=== PATIENT | female | born 1955 | race Caucasian/White ===

== ENCOUNTER 2020-12-12 13:11 | Outpatient (CLI) | payer MEDICARE, BC, SELFPAY ==
--- NOTE | 2020-12-12 13:15 | ECG_ITS ---
Measurements Intervals Dagmar Rate: 71 P: 50 AK: 175 QRS: -2 QRSD: 110 T: 32 QT: 394 QTc: 431 Interpretive Statements SINUS RHYTHM LOW QRS VOLTAGE IN PRECORDIAL LEADS CONSIDER INFERIOR INFARCT, AGE INDETERMINATE BASELINE ARTIFACT- I, III, AVR, AVL,A VF, V5-V6 ABNORMAL ECG Electronically Signed On 12-12-2020 13:40:29 CDT by Mauro Cardona D.O.
[2020-12-12 13:59] LABS: Anion Gap 10 mmol/L (8-16); Blood Urea Nitrogen 15 mg/dL (7-17); Calcium 9.9 mg/dL (8.4-10.2); Carbon Dioxide 23 mmol/L (22-30); Chloride 107 mmol/L (98-107); Estimated Glomerular Filt Rate 50; Glucose 132 mg/dL (65-110); Potassium 3.7 mmol/L (3.4-5.0); Sodium 140 mmol/L (137-145)
== END 2020-12-12 13:12 | disposition home or self-care (01) ==
PROVIDERS: Anesthesiology; PCP Internal Medicine; Visit Provider Orthopaedic Surgery
DX: Z79.899 Other long term (current) drug therapy (principal); E78.5 Hyperlipidemia, unspecified; I10 Essential (primary) hypertension; Z01.812 Encounter for preprocedural laboratory examination; R94.31 Abnormal electrocardiogram [ECG] [EKG]
CPT/HCPCS: 36415; 80048; 93005

== ENCOUNTER 2020-12-18 00:36 | Day surgery (SDC) | payer MEDICARE, BC, SELFPAY ==
[2020-12-10 10:13] VITALS: BMI 33.4
--- NOTE | 2020-12-16 11:11 | PM.IMHP ---
H&P: HPI History of Present Illness Date/Time: 12/16/20 11:11 The patient is a 65-year-old female who sees Dr. Daley regarding her right shoulder. Patient has a chronic ongoing history of pain localized to the shoulder this radiates into her upper arm somewhat. She has aching pain worse with activities and relieved by rest. She can not raise her arm completely overhead or reach behind her back due to significant pain. Patient reports weakness cannot do anything heavy repetitive with the shoulder. It does keep her awake at night and limits her daily activities significantly. Despite cortisone therapy and anti-inflammatories her symptoms continue. The patient underwent an MRI scan of the right shoulder, this shows subchondral cystic formation is and reactive changes of the proximal humerus at the rotator cuff attachment. There is also rotator cuff tendinitis and full-thickness tear of the supraspinatus tendon fairly substantial in nature. The subscapularis tendon demonstrates diffuse tendonitis the infraspinatus tendon is intact. There is moderate to severe AC joint hypertrophy with moderate subacromial outlet narrowing the labral complex demonstrates evidence of a tear the posterior labral soft tissues. Biceps tendon appears to be otherwise well preserved. At this point the patient has failed conservative measures and has discussed further treatment options in detail with Dr. Daley she was aware the above findings he would like to proceed with surgical intervention. The patient's MRI scan was done May of 2020 she has discussed the fact that the tear may have propagated and could over time have become large enough that it has possibly be, retracted enlarged and irrepairable. Chief Complaint: Right shoulder pain due to impingement AC joint arthrosis and rotator cuff tearing right shoulder. Review of Systems Review of Systems: All systems reviewed & are unremarkable except as noted in HPI and below PMFSH Family History Family History Father Diabetes mellitus Hypertension Family history of cardiovascular disease Mother Diabetes mellitus Hypertension Family history of cardiovascular disease Sibling Diabetes mellitus Hypertension Family history of cardiovascular disease Family history of malignant neoplasm of ovary Grandparent Diabetes mellitus Hypertension Social History Social History Smoking packs per day: 2.5 Smoking cigarettes per day: 50.0 Years smoked: 21 Smoking pack-years: 52.50 Smoking status: Former smoker Tobacco type: cigarettes Smoking end date: 12/10/94 Alcohol intake: current Alcohol use details: once in a while Substance use: current Substance use type: marijuana Other substance usage details: twice a week for pain in shoulder. Spiritual care concerns: No Meds Home Medications and Allergies Home Medications Medication Instructions Recorded Confirmed Type aspirin 81 mg tablet,delayed 81 mg PO DAILY 09/04/19 12/10/20 History release losartan 100 mg tablet 100 mg PO DAILY 09/04/19 12/10/20 History meloxicam 15 mg tablet 15 mg PO DAILY 09/04/19 12/10/20 History sertraline 50 mg tablet 50 mg PO DAILY 09/04/19 12/10/20 History amitriptyline 50 mg tablet 50 mg PO QHS 11/04/20 12/10/20 History ascorbate calcium (vitamin C) 500 500 mg PO DAILY 11/04/20 12/10/20 History mg tablet biotin 10,000 mcg capsule 10,000 mcg PO DAILY cap 11/04/20 12/10/20 History cholecalciferol (vitamin D3) 250 150 mcg PO DAILY tablet 11/04/20 12/10/20 History mcg (10,000 unit) tablet hydrochlorothiazide 25 mg tablet 25 mg PO DAILY 11/04/20 12/10/20 History turmeric 500 mg-black pepper 1 cap PO DAILY cap 11/04/20 12/10/20 History extract 3 mg capsule zolmitriptan 5 mg tablet See Rx Instructions .ROUTE 11/20/20 12/10/20 Rx .COMPLEX #36 tablet topiramate 100 mg tablet See R
[2020-12-18] VITALS (8 sets, daily range): BP systolic 116–133; BP diastolic 69–98; PULSE 74–89; RESP 14–20; TEMP 36.2–36.9; O2SAT 92–100
[2020-12-18] MEDS: ACETAMINOPHEN 500 MG TABLET 1000 MG PO (06:56)
--- NOTE | 2020-12-18 07:03 | WPDANESEPPF ---
Anes - Initial Pre Proc Eval Procedure: Operation Date: 12/18/20 07:30 Proposed Procedures p Right Shoulder Arthroscopy, Acromioplasty Open Distal Clavicle Excision, Rotator Cuff Repair, Proceed As Indicated - Jeremiah Daley MD Date/Time: 12/18/20 07:03 Surgeon: Jeremiah Daley MD Pre Op Diagnosis: Right Rotator Cuff Tear Patient Data Age: 65 Gender: F Height: 1.7 m Weight: 96.8 kg Allergies Allergy/AdvReac Type Severity Reaction Status Date / Time No Known Allergies Allergy Verified 12/18/20 06:54 Home Medications Medication Instructions Recorded Confirmed Type aspirin 81 mg tablet,delayed 81 mg PO DAILY 09/04/19 12/18/20 History release losartan 100 mg tablet 100 mg PO DAILY 09/04/19 12/18/20 History meloxicam 15 mg tablet 15 mg PO DAILY 09/04/19 12/18/20 History sertraline 50 mg tablet 50 mg PO DAILY 09/04/19 12/18/20 History amitriptyline 50 mg tablet 50 mg PO QHS 11/04/20 12/18/20 History ascorbate calcium (vitamin C) 500 500 mg PO DAILY 11/04/20 12/18/20 History mg tablet biotin 10,000 mcg capsule 10,000 mcg PO DAILY cap 11/04/20 12/18/20 History cholecalciferol (vitamin D3) 250 150 mcg PO DAILY tablet 11/04/20 12/18/20 History mcg (10,000 unit) tablet hydrochlorothiazide 25 mg tablet 25 mg PO DAILY 11/04/20 12/18/20 History turmeric 500 mg-black pepper 1 cap PO DAILY cap 11/04/20 12/18/20 History extract 3 mg capsule zolmitriptan 5 mg tablet See Rx Instructions .ROUTE 11/20/20 12/18/20 Rx .COMPLEX #36 tablet topiramate 100 mg tablet See Rx Instructions .ROUTE 11/21/20 12/18/20 Rx .COMPLEX #450 tablet brimonidine 1 drp EACH EYE Q12H 12/10/20 12/18/20 History levothyroxine 100 mcg PO DAILY 12/10/20 12/18/20 History magnesium 15 mg PO DAILY 12/10/20 12/18/20 History rosuvastatin 20 mg PO DAILY 12/10/20 12/18/20 History Patient hx anesthesia problems: none Family hx anesthesia problems: none PMFSH Past Medical History Medical History Chronic pain syndrome Hx of migraines Hyperlipidemia Hypertension KAYLA (obstructive sleep apnea) Family History Family History Father Diabetes mellitus Hypertension Family history of cardiovascular disease Mother Diabetes mellitus Hypertension Family history of cardiovascular disease Sibling Diabetes mellitus Hypertension Family history of cardiovascular disease Family history of malignant neoplasm of ovary Grandparent Diabetes mellitus Hypertension Social History Social History Smoking packs per day: 2.5 Smoking cigarettes per day: 50.0 Years smoked: 21 Smoking pack-years: 52.50 Smoking status: Former smoker Tobacco type: cigarettes Smoking end date: 12/10/94 Alcohol intake: current Alcohol use details: once in a while Substance use: current Substance use type: marijuana Other substance usage details: twice a week for pain in shoulder. Living arrangements: alone Spiritual care concerns: No Anes - Eval Final PreProcedure Day of Procedure 12/18/20 07:03 Patient weight: obese Heart: regular rate and rhythm Lungs: decreased breath sounds Airway: Mallampati scale class II Neurological: other (alert) Last oral intake: >/= 8 hours ASA classification: III Emergent: no Anesthetic plan: proceed Anesthesia type and monitoring: general ETT and standard monitoring Informed Consent: The patient's anesthetic plan and its attendant risks and benefits were discussed with the patient/family/POA. Questions were solicited and answers provided to the satisfaction of the patient/family/POA.
[2020-12-18] MEDS: KETOROLAC 15 MG/ML VIAL (*BKC) IV PUSH (07:08)
[2020-12-18] MEDS: LACTATED RINGERS 1,000 ML 30 ML IV CONT ×2 (07:10→08:53)
--- NOTE | 2020-12-18 07:14 | WPDHPUPDATE1 ---
History and Physical Update Update Date/Time: 12/18/20 07:14 History and Physical has been reviewed, including an updated exam of the patient. There are NO changes in the patient's condition. Risks, benefits, and alternatives have been discussed and questions answered. Patient agrees to proceed with procedure.
[2020-12-18] MEDS: ceFAZolin 2 GM/D5W 50 ML 2 GM/50 ML BAG IVPB (07:36)
--- NOTE | 2020-12-18 07:44 | WPDANESPNB ---
Anes - Peripheral Nerve Block Date/Time: 12/18/20 07:44 I have discussed with the patient/family/POA the placement of a peripheral nerve block for post-operative pain management, including associated risks, benefits, complications, and side effects. Alternative methods of post-operative analgesia were detailed. Questions were solicited and answers provided to the satisfaction of the patient/family/POA. Time-Out: A pre-procedural Time-Out was completed immediately before starting the procedure and confirmed: Patient Identification, Site, Procedure, Patient Position and the Availability of Requisite Equipment. Clinical Indications: Acute post-operative pain management requested by the operative surgeon. Nerve Block Insertion Note Anes-nerve block: interscalene right Patient position: other (sitting) Skin prep: chlorhexidine Needle: 22 gauge, stimulating, insulated echogenic needle. Needle length: 50 mm Technique: nerve stimulation lost at (mA) (0.2) and ultrasound Technique comment: mid2mg, [id number] Injectate: bupivacaine 0.5% with epi 5 mcg/ml (30ml no epi) Observations: tolerated well Complications: none Procedure start time:: 717 Procedure end time:: 728
[2020-12-18] MEDS: LIDO 1%/EPINEPHRINE 1:100,000 50 ML VIAL 20 ML INFILTRATE (08:16)
--- NOTE | 2020-12-18 08:39 | P.OP_ITS ---
Procedure Note - Detailed Date of Procedure 12/18/20 Pre-op Diagnosis Right Rotator Cuff Tear Post-op Diagnosis same Procedure Performed Rotator cuff repair, distal clavicle excision Right Surgeon Jeremiah Daley MD Insulation Cutter Sukhi Zheng Anesthesia general Description of Procedure Arthroscopy shoulder with acromioplasty open distal clavicle exicision. Rotator cuff debridement and repair. Patient brought to operating room 7. A general anesthetic was administered placed on the operating table sterilely prepped and draped in usual manner local the standard arthroscopic portals posterolateral may diagnostic arthroscopy performed the biceps was grossly intact partial-thickness tearing nerve full- thickness supraspinatus watershed area the labrum was frayed but otherwise unremarkable went in subacromial space the bursa was debrided followed by an acromioplasty and then proceeded to open the shoulder longitudinal incision made from the AC joint distally 3 and 4 millimeters of distal clavicle excised the edges trimmed and then I split the deltoid from the acromion distally the rotator cuff was split. Repaired with 2. Ethibond suture in getting a nice repair and no further impingement was noted the wound closed with the deltoid reattached with soft tissue from in the trapezius 2. Ethibond to close the 2 0 Vicryl in this 3 0 prominent sterile dressing applied patient tolerated procedure well flexed Estimated Blood Loss 50 Drains No Packing No Pathology none sent Complications No immediate complications Condition stable Disposition PACU
== END 2020-12-18 10:26 | disposition home or self-care (01) ==
PROVIDERS: PCP Internal Medicine; Visit Provider Orthopaedic Surgery
PROC: (CPT 29805; principal; 2020-12-18 07:30)
DX: M75.101 Unspecified rotator cuff tear or rupture of right shoulder, not specified as traumatic (principal); G89.18 Other acute postprocedural pain; M19.011 Primary osteoarthritis, right shoulder; M75.41 Impingement syndrome of right shoulder; Z87.891 Personal history of nicotine dependence; F12.90 Cannabis use, unspecified, uncomplicated; Z79.82 Long term (current) use of aspirin
CPT/HCPCS: 29827; 23120; 64415; A4565; A9270; J0330; J0690; J1885; J2250; J2405; J2704; J3010; J7120

== ENCOUNTER 2021-08-11 10:38 | Emergency (ER) | payer MEDICARE, BC, SELFPAY ==
--- NOTE | ~2021-08-11 | CT_ITS ---
EXAMINATION: CT abdomen pelvis w con DATE: 08/11/2021 14:19 INDICATION: Nausea and vomiting. TECHNIQUE: Computed tomography (CT) of the abdomen and pelvis was performed with 100 mL Omnipaque 300 intravenous contrast. Automated exposure control and iterative reconstruction technique were employe d. The dose-length product was 975.26 mGy-cm. COMPARISON: None. FINDINGS: The visualized portions of the lung bases demonstrate mild atelectasis. No pleural effusion . The heart size is normal. No pericardial effusion. There is a small sliding hiatal hernia. The live r and spleen are normal. There are changes of cholecystectomy. Calcifications in the pancreas are con sistent with chronic pancreatitis. The adrenal glands and kidneys are normal. There is a supraumbilic al ventral hernia containing fat. There is diverticulosis of the colon without evidence of diverticul itis. The appendix is not visualized. There are no pathologically enlarged lymph nodes. There is no f ree intraperitoneal fluid. There is moderate thoracolumbar spondylosis. There is mild chronic height loss of multiple thoracic vertebral bodies. IMPRESSION: 1. Small sliding hiatal hernia. 2. Supraumbilical ventral hernia containing fat. Reviewed, dictated and finalized at location B.
[2021-08-11 11:17] VITALS: BP 125/77; PULSE 80; RESP 16; TEMP 36.2; O2SAT 98
[2021-08-11 11:59] LABS: Basophils Absolute Auto 0.1 K/mm3 (0.0-0.1); Eosinophils Absolute Auto 0.2 K/mm3 (0-0.3); Eosinophils Percent Auto 2.8 % (0-4.4); Hematocrit 44.3 % (37.0-47.0); Hemoglobin 14.4 g/dL (12.0-15.0); Immature Granulocyte Absolute 0.01 K/mm3 (0.00-0.031); Immature Granulocyte Percent A 0.2 % (0-0.5); Lymphocytes Absolute Auto 2.13 K/mm3 (0.9-3.2); Lymphocytes Percent Auto 35.1 % (18.3-44.2); Mean Corpuscular HGB Conc 32.5 g/dl (32-36); Mean Corpuscular Hemoglobin 30.8 pg (26-34); Mean Corpuscular Volume 94.7 fl (80-100); Mean Platelet Volume 9.4 fl (7.4-10.4); Monocytes Absolute Auto 0.4 K/mm3 (0.1-0.6); Monocytes Percent Auto 6.1 % (2.6-8.5); Neutrophils Absolute Auto 3.3 K/mm3 (1.3-6.7); Neutrophils Percent Auto 54.8 % (45.5-73.1); Platelet Count Result 285 k/mm3 (150-375); Red Blood Count 4.68 M/mm3 (4.2-5.4); White Blood Count 6.1 K/mm3 (4.5-10.0)
[2021-08-11 12:07] LABS: INR 0.9; Prothrombin Time 11.8 Seconds (11.1-14.7)
[2021-08-11 12:08] LABS: Partial Thromboplastin Time 27.5 SECONDS (22.3-36.8)
[2021-08-11 12:09] LABS: Alanine Aminotransferase 14 U/L (6-35); Albumin Level 4.5 g/dL (3.5-5.1); Alkaline Phosphatase 73 U/L (38-126); Anion Gap 9 mmol/L (8-16); Aspartate Amino Transferase 22 U/L (14-36); Bilirubin,Total 0.2 mg/dL (0.2-1.3); Blood Urea Nitrogen 23 mg/dL (7-17); Calcium 9.8 mg/dL (8.4-10.2); Carbon Dioxide 29 mmol/L (22-30); Chloride 101 mmol/L (98-107); Estimated CRCL calculation 52 ml/min; Estimated Glomerular Filt Rate 45; Glucose 127 mg/dL (65-110); Potassium 3.7 mmol/L (3.4-5.0); Sodium 139 mmol/L (137-145)
--- NOTE | 2021-08-11 13:56 | ED.GENADULT ---
HPI - General Adult General Chief complaint: GI Bleed Stated complaint: Dark Stools, Vomiting Blood Time Seen by Provider: 08/11/21 13:31 Source: patient and RN notes reviewed Mode of arrival: ambulatory Limitations: no limitations History of Present Illness HPI narrative: 65-year-old female with history of hiatal hernia, umbilical hernia and cholecystectomy presented to the emergency department for evaluation of bloody emesis this morning and dark tarry stools for approximately 2 weeks. Patient states that she has vomiting every day and that this is unchanged. Patient does report some right lower quadrant pain. Patient states she has no had follow-up with GI. Patient states that she woke up this morning and had 3 episodes of emesis which were food and then she had 1 emesis that she said did contain blood. Patient's last emesis was at 7 AM. Patient's had no further emesis since that point. Patient states she has had dark stools for approximately 1 week. Patient denies any prior history of GI bleed. Patient states that she has never had follow-up with gastroenterology. Related Data Home Medications Medication Instructions Recorded Confirmed aspirin 81 mg tablet,delayed 81 mg PO DAILY 09/04/19 03/31/21 release losartan 100 mg tablet 100 mg PO DAILY 09/04/19 03/31/21 meloxicam 15 mg tablet 15 mg PO DAILY 09/04/19 03/31/21 sertraline 50 mg tablet 50 mg PO DAILY 09/04/19 03/31/21 ascorbate calcium (vitamin C) 500 500 mg PO DAILY 11/04/20 03/31/21 mg tablet biotin 10,000 mcg capsule 10,000 mcg PO DAILY cap 11/04/20 03/31/21 cholecalciferol (vitamin D3) 250 150 mcg PO DAILY tablet 11/04/20 03/31/21 mcg (10,000 unit) tablet hydrochlorothiazide 25 mg tablet 25 mg PO DAILY 11/04/20 03/31/21 turmeric 500 mg-black pepper 1 cap PO DAILY cap 11/04/20 03/31/21 extract 3 mg capsule brimonidine 1 drp EACH EYE Q12H 12/10/20 03/31/21 levothyroxine 100 mcg PO DAILY 12/10/20 03/31/21 magnesium 15 mg PO DAILY 12/10/20 03/31/21 rosuvastatin 20 mg PO DAILY 12/10/20 03/31/21 Allergies Allergy/AdvReac Type Severity Reaction Status Date / Time No Known Allergies Allergy Verified 08/11/21 13:21 Review of Systems Review of Systems: CONSTITUTIONAL: Denies fever, chills, or sweats. EYES: Denies visual changes, redness, or discharge. ENT: Denies rhinorrhea, congestion, sore throat, or otalgia. CARDIOVASCULAR: Denies chest pain, palpitations, or edema. RESPIRATORY: Denies cough or dyspnea. GASTROINTESTINAL: See HPI GENITOURINARY: Denies dysuria or hematuria. SKIN: Denies rash or itching. MUSCULOSKELETAL: Denies back pain, joint pain, or myalgia. NEUROLOGIC: Denies headache, numbness, or weakness. [facility] Past Medical History Medical History Chronic pain syndrome Hx of migraines Hyperlipidemia Hypertension KAYLA (obstructive sleep apnea) Family History Family History Father Diabetes mellitus Hypertension Family history of cardiovascular disease Mother Diabetes mellitus Hypertension Family history of cardiovascular disease Sibling Diabetes mellitus Hypertension Family history of cardiovascular disease Family history of malignant neoplasm of ovary Grandparent Diabetes mellitus Hypertension Social History Social History Smoking packs per day: 2.5 Smoking cigarettes per day: 50.0 Years smoked: 21 Smoking pack-years: 52.50 Smoking status: Former smoker Tobacco type: cigarettes Smoking end date: 12/10/94 Alcohol intake: current Alcohol use details: once in a while Substance use: current Substance use type: marijuana Other substance usage details: twice a week for pain in shoulder. Spiritual care concerns: No Exam Narrative: APPEARANCE: Well appearing, no pain, no distress, well-nourished. HEAD: normocephalic, atraumatic. EYES: PERR
[2021-08-11] MEDS: PANTOPRAZOLE SODIUM IV 40 MG VIAL 80 MG IV PUSH (14:22)
[2021-08-11] MEDS: SODIUM CHLORIDE 0.9% IV 1,000 ML 150 ML IV CONT (14:22)
== END 2021-08-11 17:07 | disposition home or self-care (01) ==
PROVIDERS: Emergency Medicine; Emergency Provider Emergency Medicine; PCP Internal Medicine
DX: R11.10 Vomiting, unspecified (principal); E78.5 Hyperlipidemia, unspecified; I10 Essential (primary) hypertension; G47.33 Obstructive sleep apnea (adult) (pediatric); G89.4 Chronic pain syndrome; Z79.82 Long term (current) use of aspirin; Z87.891 Personal history of nicotine dependence; K44.9 Diaphragmatic hernia without obstruction or gangrene; K43.9 Ventral hernia without obstruction or gangrene
CPT/HCPCS: 36415; 74177; 80053; 85025; 85610; 85730; 86850; 86900; 86901; 96361; 96374; 99284; C9113; J7030; Q9967

== ENCOUNTER 2021-12-04 07:56 | Outpatient (CLI) | payer MEDICARE, BC, SELFPAY ==
--- NOTE | 2021-12-26 11:26 | WPDSLEEPSTUD ---
Sleep Study Date of Study: 12/04/21 Ordering Provider: Dayana Good DO Interpreting Physician: Dayana Good DO Sleep Study Type: Split Polysomnogram Height: 1.7 m Weight: 102.512 kg Body Mass Index: 35.4 Neck Circumference (inches): 16.5 Cutler: 3 Reason for Sleep Study The patient had a split night study done at [facility] on 02/09/2019 that showed AHI 43.5. She was started on CPAP 5 cm H2O and titrated to CPAP 9 cm H2O with EPR of 1. She developed treatment emergent centrals. It was recommended that she have a CPAP/BPAP titration. Due to her claustrophobia, she had difficulty tolerating the CPAP. Since her last sleep study, her insurance has changed to Medicare. She will have to requalify for PAP therapy. Sleep History The patient is a 66-year-old female with hypertension hypothyroidism migraines hyperlipidemia, irritable bowel syndrome, osteoporosis, chronic pain syndrome, history of tobacco use and previous diagnosis of severe sleep apnea that had a sleep study ordered by her primary care physician to requalify for PAP therapy. The patient occasionally awakens from sleep short of breath. She frequently awakens at night with heartburn, belching or cough. She frequently snores. She constantly has trouble sleeping when she has a cold. She occasionally wakes up gasping for air throughout the night. She frequently has breathing problems at night observed by herself or others. She rarely sweats excessively at night. He occasionally has heart palpitations or irregular heartbeats during the night. She occasionally falls asleep during the day but never while driving. She rarely experiences loss of muscle tone when extremely emotional. She occasionally has trouble at school work due to sleepiness. She rarely feels unable to making Sineff asleep. He occasionally experiences vivid dreamlike scenes upon awakening or asleep. She frequently feels afraid of going to sleep. She rarely has nightmares. She frequently remembers her dreams. She rarely has thoughts racing through her mind. He occasionally feels sad or depressed. She occasionally has anxiety. She occasionally has muscular tension. She occasionally notices parts of her body jerk. She occasionally kicks during the night. She occasionally has crawling and aching feelings in her legs as well as leg pain during the night. She occasionally grinds her teeth during sleep but rarely awakens with morning type pain. He is occasionally bothered by pain during the day and occasionally awakened by pain during the night. She frequently wakes up feeling stiff in the morning. She occasionally wakes up with sore achy muscles. She frequently wakes up with pain in the neck, spine and other joints. She goes to bed at 4:00 a.m. on weekdays and between 5-6 a.m. on the weekends. It takes her 2 hours to fall asleep. She wakes throughout the night to urinate. She wakes up at 3:00 p.m. on weekdays and at 6:00 p.m. weekends. She typically gets 6 hours of sleep per night. She does not stay in bed after waking. She will drink caffeinated beverages 2 hours of bedtime. She does not engage in physical exercise before bedtime. She will watch television before falling asleep. He denies taking naps in the afternoon or the evening. She drinks 4 caffeinated beverages per day. She denies alcohol use. She will smoke marijuana for her back pain. She quit smoking cigarettes 27 years ago. [facility] Past Medical History Medical History Bulging discs Chronic pain syndrome Gestational diabetes Hx of migraines Hyperlipidemia Hypertension IBS (irritable bowel syndrome) KAYLA (obstructive sleep apnea) Osteoporosis Scoliosis Thyroid disorder Surgical History Surgical History H/O arthroscopic knee surgery H/O hernia repair (2) Family History Family History (Reviewe
[2021-12-26 14:11] VITALS: BMI 35.4
== END 2021-12-05 05:56 | disposition home or self-care (01) ==
PROVIDERS: PCP Family Medicine; Visit Provider Family Medicine
DX: G47.33 Obstructive sleep apnea (adult) (pediatric) (principal)
CPT/HCPCS: 95811

== ENCOUNTER 2022-01-30 15:54 | Outpatient (CLI) | payer MEDICARE, BC, SELFPAY ==
[2022-01-30 19:40] LABS: LDL Cholesterol Direct 182 mg/dL
[2022-01-30 19:47] LABS: Free T4 Free Thyroxine 0.78 ng/mL (0.78-2.19); Vitamin D 25 Hydroxy 61.3 ng/mL
[2022-01-30 19:50] LABS: Alanine Aminotransferase 13 U/L (6-35); Albumin Level 4.7 g/dL (3.5-5.1); Alkaline Phosphatase 76 U/L (38-126); Anion Gap 13 mmol/L (8-16); Aspartate Amino Transferase 35 U/L (14-36); Bilirubin,Total 0.5 mg/dL (0.2-1.3); Blood Urea Nitrogen 21 mg/dL (7-17); Calcium 9.3 mg/dL (8.4-10.2); Carbon Dioxide 22 mmol/L (22-30); Chloride 103 mmol/L (98-107); Estimated Glomerular Filt Rate 45; Glucose 130 mg/dL (65-110); HDL Direct 56 mg/dL; Potassium 3.8 mmol/L (3.4-5.0); Sodium 138 mmol/L (137-145); Triglycerides 187 mg/dL (<150)
[2022-01-30 20:15] LABS: Cholesterol 333 mg/dL (0-200)
[2022-01-30 20:17] LABS: Hemoglobin A1C 5.7 % (<5.7)
== END 2022-01-30 15:55 | disposition home or self-care (01) ==
LOC: ANHGOSHLAB 16:01
PROVIDERS: PCP Family Medicine; Visit Provider Family Medicine
DX: E03.9 Hypothyroidism, unspecified (principal); R73.9 Hyperglycemia, unspecified; I10 Essential (primary) hypertension; E55.9 Vitamin D deficiency, unspecified; E78.5 Hyperlipidemia, unspecified; Z12.11 Encounter for screening for malignant neoplasm of colon
CPT/HCPCS: 36415; 80053; 80061; 82306; 83036; 84439; 84443

== ENCOUNTER 2022-02-23 13:28 | Outpatient (CLI) | payer MEDICARE, BC, SELFPAY ==
--- NOTE | 2022-02-23 13:47 | ECHO_ITS ---
Patient Info Name: Angelica Cowan Age: 66 years : 1955 Gender: Female Ht: 67 in Wt: 224 lbs BSA: 2.23 m2 HR: 77 bpm BP: 123 / 99 mmHg Technical Quality: Good Exam Date: 02/23/2022 2:17 PM Exam Location: [facility] Patient Status: Outpatient Admit Date: 02/23/2022 Staff Ordering Physician: Dayana Good DO Avionics System Engineer: Sendy Hebert RDCS Attending Provider: Dayana Good DO Referring Physician: Florentino ALDRIDGE; Exam Type: CA echo doppler color flow Study Info Indications R06.3 - PERIODIC BREATHING Complete two-dimensional, color flow and Doppler transthoracic echocardiogram is performed. Summary 1. Complete two-dimensional, color flow and Doppler transthoracic echocardiogram is performed. 2. Left ventricular chamber dimension is normal. 3. Left ventricular systolic function is normal, estimated at 60-65%. 4. The left ventricular diastolic function is grade I diastolic dysfunction. 5. E/e' 7 is not elevated. 6. Global longitudinal strain is abnormal at -15.1%. 7. No pulmonary hypertension, estimated pulmonary arterial systolic pressure is 18 mmHg. Left Ventricle E/e' 7 is not elevated. Global longitudinal strain is abnormal at -15.1%. Left ventricular chamber dimension is normal. Left ventricular systolic function is normal, estimated at 60-65%. The left ventricular diastolic function is grade I diastolic dysfunction. Right Ventricle Right ventricular systolic function is normal and with normal TAPSE 1.7cm. Right ventricular chamber dimension is normal. Left Atria Left atrial chamber dimension is normal. Right Atria Right atrial chamber dimension is normal. Aortic Valve The aortic valve is trileaflet. There is no aortic valve stenosis. There is no aortic valve regurgitation. Pulmonic Valve There is no pulmonic regurgitation. Mitral Valve There is no mitral valve stenosis. There is no mitral valve regurgitation. Tricuspid Valve There is no tricuspid valve regurgitation. No pulmonary hypertension, estimated pulmonary arterial systolic pressure is 18 mmHg. Pericardium/Pleural There is no pericardial effusion. Inferior Vena Cava Normal inferior vena cava with >50% collapse upon inspiration consistent with normal right atrial pressure, 5 mmHg. Aorta The aortic root size at the sinus of Valsalva is normal. Left Ventricular Outflow Tract Name Value Normal LVOT 2D LVOT Diameter 2.0 cm LVOT Doppler LVOT Peak Gradient 4 mmHg LVOT Mean Gradient 3 mmHg LVOT VTI 21 cm LVOT VTI/AV VTI Ratio 0.9 LVOT Stroke Volume 64 ml LVOT CO 4.5 l/min LVOT CI 2.0 l/min/m2 Pulmonic Valve Name Value Normal RVOT Doppler
== END 2022-02-23 13:29 | disposition home or self-care (01) ==
PROVIDERS: PCP Family Medicine; Visit Provider Family Medicine
DX: R06.3 Periodic breathing (principal)
CPT/HCPCS: 93306

== ENCOUNTER 2022-04-09 13:14 | Outpatient (CLI) | payer MEDICARE, BC, SELFPAY ==
[2022-04-09 14:06] LABS: Anion Gap 7 mmol/L (8-16); Blood Urea Nitrogen 26 mg/dL (7-17); Calcium 8.9 mg/dL (8.4-10.2); Carbon Dioxide 30 mmol/L (22-30); Chloride 99 mmol/L (98-107); Estimated Glomerular Filt Rate 56; Glucose 100 mg/dL (65-110); Sodium 136 mmol/L (137-145)
== END 2022-04-09 13:15 | disposition home or self-care (01) ==
LOC: ANHSURGERY 13:37
PROVIDERS: Anesthesiology; PCP Family Medicine; Visit Provider Surgery
DX: K43.0 Incisional hernia with obstruction, without gangrene (principal); Z79.899 Other long term (current) drug therapy; Z01.818 Encounter for other preprocedural examination
CPT/HCPCS: 36415; 80048; 86850; 86900; 86901

== ENCOUNTER 2022-04-14 00:33 | Day surgery (SDC) | payer MEDICARE, BC, SELFPAY ==
[2022-04-07 14:27] VITALS: BMI 35.0
--- NOTE | 2022-04-07 14:41 | PC.NURSE ---
Report to the Outpatient Waiting Room, entrance under the green pavilion located off [facility], at time 10:00 on date 04/14/22. Planned Procedure Time: 12:00. Time changes happen often and if your time is changed the preop area will call you the afternoon before. - You and your visitor will be asked to self-screen and do not enter if you have any COVID symptoms. - Only one visitor is requested with a max of two and NO children visitors are allowed at this time. - The patient visitor may be requested to leave or wait in car when not with patient due to distancing restrictions. - A mask is REQUIRED within the hospital. Patients may have clear liquids (water, carbonated beverages, clear teas, apple juice) until 3 hours prior to surgery (9:00) with a maximum of 20 ounces. - No food from midnight until time of surgery Take the following medications with a SIP of water the morning of surgery: LEVOTHYROXINE, SERTRALINE, TOPIRAMATE Medications to discontinue per physician: VITAMINS/SUPPLEMENTS Date to take last dose: 04/10/22 Please no make-up, nail turkmen, hairspray, perfume, deodorant, or body powder the day of surgery. No jewelry (including any body piercings) or valuables the day of surgery, leave them at home. Please take a shower or bath the night before, or the morning of, surgery with an antibacterial soap (HIBICLENS). Wear comfortable, loose fitting clothing. - Jewelry must be removed prior to entering the operating room. Rings and piercings that are not removed may be cut off. - The hospital will not accept responsibility for valuables. - Please leave all valuables, including medications, at home the day of surgery. If you are going home after surgery, a licensed rolloff driver must drive you home. - NO public transportation without another adult if you receive anesthesia. - We recommend that an adult stay with you for 24 hours following discharge. - We also recommend that you do not drive, make important decision, drink alcoholic beverages, or take any drugs that were not prescribed by your health care provider for at least 24 hours after your discharge time. Follow any additional instructions given to you from your surgeon. If you or anyone in your household have experienced Covid symptoms in the past week, please notify your surgeon or the nurse liaison at the phone number below for possible testing. Telephone instructions given to PT - RAF ROMERO and asked if any additional questions and then verbalized understanding. Patient advised to call surgeon office or pre surgery nurse liaison [phone] if any additional questions.
[2022-04-14] VITALS (9 sets, daily range): BP systolic 100–124; BP diastolic 63–70; PULSE 66–77; RESP 10–18; TEMP 37.1; O2SAT 91–97
[2022-04-14] MEDS: ACETAMINOPHEN 500 MG TABLET 1000 MG PO (10:53)
--- NOTE | 2022-04-14 11:01 | WPDHPUPDATE1 ---
History and Physical Update Update Date/Time: 04/14/22 11:01 History and Physical has been reviewed, including an updated exam of the patient. There are NO changes in the patient's condition. Risks, benefits, and alternatives have been discussed and questions answered. Patient agrees to proceed with procedure.
--- NOTE | 2022-04-14 11:01 | PM.IMHP ---
H&P: HPI History of Present Illness Date/Time: 04/14/22 11:01 Chief Complaint: Incisional hernia Narrative: This is a 66-year-old woman who presents for incisional hernia repair. She denies any changes since last seen office. Review of Systems Review of Systems: All systems reviewed & are unremarkable except as noted in HPI and below Constitutional: Constitutional: Denies chills, Denies fever(s), Denies headache(s) and Denies weight loss Eyes: Eyes: Denies change in vision ENT: Denies dizziness, Denies headache(s), Denies neck mass and Denies throat swelling Cardiovascular: Cardiovascular: Denies chest pain, Denies lightheadedness and Denies dyspnea Respiratory: Respiratory: Denies cough, Denies dyspnea and Denies wheezing Gastrointestinal: Gastrointestinal: Denies abdominal pain, Denies change in bowel habits, Denies nausea and Denies vomiting Genitourinary: Genitourinary: Denies hematuria and Denies dysuria Musculoskeletal: Musculoskeletal: Reports as per HPI Integumentary/Breasts: Skin/Breast: Reports as per HPI Neurologic: Denies dizziness and Denies headache(s) Allergic/Immunologic: Allergic/Immunologic: Denies throat swelling and Denies wheezing PMFSH Past Medical History Medical History Bulging discs Chronic pain syndrome Gestational diabetes Hx of migraines Hyperlipidemia Hypertension IBS (irritable bowel syndrome) KAYLA (obstructive sleep apnea) Osteoporosis Scoliosis Thyroid disorder Surgical History Surgical History H/O arthroscopic knee surgery H/O hernia repair (2) Family History Family History Father Diabetes mellitus Hypertension Family history of cardiovascular disease Cerebrovascular accident Mother Diabetes mellitus Hypertension Family history of cardiovascular disease Cerebrovascular accident Sibling Diabetes mellitus Hypertension Family history of cardiovascular disease Family history of malignant neoplasm of ovary Depression Cerebrovascular accident Thyroid disorder Grandparent Diabetes mellitus Hypertension Son Depression Daughter Depression Hypertension Social History Social History (Updated 04/09/22 @ 10:12 by Mohini Muhammad) Social History: Caffeine-coffee/tea Smoking packs per day: 2.5 Smoking cigarettes per day: 50.0 Years smoked: 21 Smoking pack-years: 52.50 Smoking status: Never smoker Tobacco type: cigarettes Smoking end date: 12/10/94 Alcohol intake: current Alcohol use details: occasionally Substance use: current Substance use type: marijuana Other substance usage details: twice a week for pain in shoulder. Lack of Transportation: No Lack of Food: Never True Current Housing: I Have Housing Concerned About Future Housing: No Difficulty Paying Gas/Electric Bills: No Difficulty Paying for Meds: YES Currently Unemployed: No Education: High School Diploma/GED Difficulty w/ Childcare or Family Care: No Living arrangements: alone Spiritual care concerns: No Meds Home Medications and Allergies Home Medications Medication Instructions Recorded Confirmed Type aspirin 81 mg tablet,delayed 81 mg PO DAILY 09/04/19 04/14/22 History release (Aspir-) turmeric 500 mg-black pepper 1 cap PO DAILY 11/04/20 04/14/22 History extract 3 mg capsule brimonidine 0.15 % eye drops 1 drp EACH EYE Q12H 12/10/20 04/14/22 History tramadol 50 mg tablet 50 mg PO BID PRN Pain 09/25/21 04/14/22 History zolmitriptan 5 mg tablet See Rx Instructions .Route 09/30/21 04/14/22 Rx .COMPLEX #36 tabs topiramate 100 mg tablet See Rx Instructions .Route 10/29/21 04/14/22 Rx .COMPLEX #450 tabs hydrochlorothiazide 25 mg tablet 25 mg PO DAILY #90 tabs 11/30/21 04/14/22 Rx losartan 100 mg tablet 100 mg PO DAILY #90 tabs 11/30/21 04/14/22 Rx amitriptyline
--- NOTE | 2022-04-14 11:04 | WPDANESEPPF ---
Anes - Initial Pre Proc Eval Procedure: Operation Date: 04/14/22 12:00 Proposed Procedures p Laparoscopic Incarcerated Incisional Hernia Repair with Mesh, Davinci Assisted - Eleazar Sol DO Date/Time: 04/14/22 11:04 Surgeon: Eleazar Sol DO Pre Op Diagnosis: Incarcerated Incisional Hernia Patient Data Age: 66 Gender: F Height: 1.7 m Weight: 101.6 kg Allergies Allergy/AdvReac Type Severity Reaction Status Date / Time No Known Allergies Allergy Verified 04/14/22 10:33 Home Medications Medication Instructions Recorded Confirmed Type aspirin 81 mg tablet,delayed 81 mg PO DAILY 09/04/19 04/14/22 History release (Aspir-) turmeric 500 mg-black pepper 1 cap PO DAILY 11/04/20 04/14/22 History extract 3 mg capsule brimonidine 0.15 % eye drops 1 drp EACH EYE Q12H 12/10/20 04/14/22 History tramadol 50 mg tablet 50 mg PO BID PRN Pain 09/25/21 04/14/22 History zolmitriptan 5 mg tablet See Rx Instructions .Route 09/30/21 04/14/22 Rx .COMPLEX #36 tabs topiramate 100 mg tablet See Rx Instructions .Route 10/29/21 04/14/22 Rx .COMPLEX #450 tabs hydrochlorothiazide 25 mg tablet 25 mg PO DAILY #90 tabs 11/30/21 04/14/22 Rx losartan 100 mg tablet 100 mg PO DAILY #90 tabs 11/30/21 04/14/22 Rx amitriptyline 50 mg tablet See Rx Instructions .Route 12/30/21 04/14/22 Rx .COMPLEX #90 tabs multivitamin 1 tablet PO DAILY 01/29/22 04/14/22 History sertraline 100 mg tablet 100 mg PO DAILY #90 tabs 02/16/22 04/14/22 Rx cholecalciferol (vitamin D3) 250 125 mcg PO DAILY 03/05/22 04/14/22 History mcg (10,000 unit) tablet levothyroxine 125 mcg tablet See Rx Instructions .Route 03/06/22 04/14/22 Rx .COMPLEX #90 tabs B6 1.7 mg-folic 400 mcg-B12 2.4 2 cap PO DAILY 04/07/22 04/14/22 History xuv-jafemw-cwlxcxopswwk oral capsule (Neuriva Plus Brain Performance) apple cider vinegar 600 mg capsule 600 mg PO DAILY 04/07/22 04/14/22 History biotin 1,000 mcg chewable tablet 1,500 mcg PO DAILY 04/07/22 04/14/22 History lysine 1,000 mg tablet 1,000 mg PO DAILY 04/07/22 04/14/22 History mecobalamin (vitamin B12) 1,000 1,000 mcg PO DAILY 04/07/22 04/14/22 History mcg chewable tablet (B12 Active) turmeric 400 mg capsule 400 mg PO DAILY 04/07/22 04/14/22 History vitamin E (dl, acetate) 180 mg 180 mg PO DAILY 04/07/22 04/14/22 History (400 unit) capsule vitamin K2 (MK-4) 100 mcg tablet 100 mcg PO DAILY 04/07/22 04/14/22 History albuterol sulfate 90 mcg/actuation 2 puff inhalation Q4H PRN 04/10/22 Rx aerosol inhaler shortness of breath or wheezing #8.5 grams Patient hx anesthesia problems: other Family hx anesthesia problems: none Results Review: All pre-operative results and documents have been reviewed as part of the pre-operative evaluation. [facility] Past Medical History Medical History Bulging discs Chronic pain syndrome Gestational diabetes Hx of migraines Hyperlipidemia Hypertension IBS (irritable bowel syndrome) KAYLA (obstructive sleep apnea) Osteoporosis Scoliosis Thyroid disorder Surgical History Surgical History H/O arthroscopic knee surgery H/O hernia repair (2) Family History Family History Father Diabetes mellitus Hypertension Family history of cardiovascular disease Cerebrovascular accident Mother Diabetes mellitus Hypertension Family history of cardiovascular disease Cerebrovascular accident Sibling Diabetes mellitus Hypertension Family history of cardiovascular disease Family history of malignant neoplasm of ovary Depression Cerebrovascular accident Thyroid disorder Grandparent Diabetes mellitus Hypertension Son Depression Daughter Depression Hypertension Social History Social History Social History:
[2022-04-14] MEDS: LACTATED RINGERS 1,000 ML 30 ML IV CONT ×2 (11:12→13:47)
[2022-04-14] MEDS: ceFAZolin 2 GM/D5W 50 ML 2 GM/50 ML BAG IVPB (11:34)
[2022-04-14] MEDS: KETOROLAC 30 MG/ML VIAL (*BKC) IV PUSH (12:10)
--- NOTE | 2022-04-14 13:30 | W.PM.PROC2 ---
Procedure Note - Detailed Date of Procedure 04/14/22 Pre-op Diagnosis Incarcerated Incisional Hernia Post-op Diagnosis Same Procedure Performed Laparoscopic 3cm Incarcerated Incisional Hernia Repair with Mesh, da Sudha assisted Surgeon Eleazar Sol, Anesthesia General and Local (Exparel) Indications this is a 66-year-old woman who presented with abdominal pain just superior to her umbilicus that had been present for about 8 years. She recently has noticed a knot in that region and had undergone a CT of her abdomen and pelvis which showed evidence of a supraumbilical hernia containing fat. On exam she was noted to have a 3-4 cm supraumbilical hernia that appeared to be incarcerated with omentum. Discussions were made with the patient about treatment options and decision was made to proceed with robotic assisted laparoscopic incarcerated incisional hernia repair with mesh. Findings Laparoscopic incarcerated incisional hernia repair was performed. The patient was found to a 3 cm incisional hernia incarcerated with omentum just superior to the umbilicus. The omentum was carefully dissected free and reduced. I initially attempted a robotic transabdominal preperitoneal approach, but the peritoneum was very thin and tore very easily especially around the hernia sac. I then chose to perform a robotic intraperitoneal onlay mesh technique and excised the hernia sac and preperitoneal fat. The fascial edges were closed using a 1 Stratafix running absorbable suture. A Ventralight ST 15 cm x 10 cm and mesh with Echo 2 positioning device was placed intra-abdominally and brought up to the abdominal wall. This was secured using 2 0 V lock running absorbable suture. The Echo 2 device was then removed after the mesh was secured to the abdominal wall. The patient did have some bleeding as the mesh was sutured to the abdominal wall in the right lower quadrant, but this bleeding appeared minimal after the suture was pulled taut. The hernia sac was removed and sent to the lab for pathology. Description of Procedure Procedure as well as risks, benefits, and alternatives were discussed with the patient. Written consent was obtained and placed in chart prior to procedure. Patient was brought back to surgical suite. She was placed supine on operating table. Time-out was done to confirm patient and procedure. She was then intubated by the anesthesia department. A bump was placed under her left hip, and the bed was flexed slightly to extend the space between her costal margin and iliac crest. Her abdomen was prepped and draped in sterile fashion using chlorhexidine prep. A 5 millimeter incision was made in the left upper quadrant, and a 5 millimeter Optiview trocar was advanced through the abdominal layers under direct visualization. Once inside the abdominal cavity, carbon dioxide insufflation was used to create a pneumoperitoneum. Her abdomen was inspected. An 8 millimeter incision was made in the left lower quadrant, and an 8 millimeter robotic trocar was placed under direct visualization. Another 8 millimeter incision was made in the left lateral abdomen, and an 8 millimeter robotic trocar was placed under direct visualization. Exparel was infiltrated along the lateral abdominal cárdenas to perform a transversus abdominis plane block bilaterally. The 5 millimeter port was removed, the incision was extended to 12 millimeters, and a 12 millimeter air seal port was placed under direct visualization. A Jero-Peña cone was also used to place an 0-Vicryl simple interrupted suture at this trocar site. The robotic arms were brought up to the patient's bedside and secured to the ports. The camera and instruments were inserted, and I then moved over to the robotic console and took control of the camera and instruments. After careful thorough inspection of the abdominal cavity, I began my dissection at the hernia. I attempted a transabdominal preperitoneal plane but
[2022-04-14] MEDS: fentaNYL CITRATE INJ (*CRX) 100 MCG/2 ML VIAL 25 MCG IV PUSH ×2 (14:12→14:37)
[2022-04-14] MEDS: oxyCODONE HCL (*CRX) 5 MG TAB IR PO (15:05)
== END 2022-04-14 15:58 | disposition home or self-care (01) ==
PROVIDERS: PCP Family Medicine; Visit Provider Surgery
PROC: (CPT 49594; principal; 2022-04-14 12:00)
DX: K43.0 Incisional hernia with obstruction, without gangrene (principal); I10 Essential (primary) hypertension; E78.5 Hyperlipidemia, unspecified; G47.33 Obstructive sleep apnea (adult) (pediatric); G89.4 Chronic pain syndrome; Z79.82 Long term (current) use of aspirin; Z79.51 Long term (current) use of inhaled steroids; E07.9 Disorder of thyroid, unspecified; K58.9 Irritable bowel syndrome, unspecified; M81.0 Age-related osteoporosis without current pathological fracture; Z87.891 Personal history of nicotine dependence; F12.90 Cannabis use, unspecified, uncomplicated; E66.9 Obesity, unspecified; Z68.35 Body mass index [BMI] 35.0-35.9, adult
CPT/HCPCS: 49594; S2900; 88302; A9270; C1781; C9290; J0690; J1100; J1170; J1885; J2250; J2370; J2405; J2704; J2710; J3010; J7120

== ENCOUNTER → 2022-04-24 10:59 | Outpatient (CLI) | payer MEDICARE, BC, SELFPAY ==
--- NOTE | ~2022-04-24 | XR_ITS ---
EXAMINATION: XR chest 2V DATE: 04/24/2022 11:12 INDICATION: 3 weeks of cough, wheezing and shortness of breath TECHNIQUE: frontal and lateral views of the chest were obtained. COMPARISON: Chest radiograph dated 07/20/2008 FINDINGS: The lungs remain clear with no focal airspace opacities, pulmonary edema, pleural effusion or pneumot horax. The cardiomediastinal silhouette is normal. Moderate thoracic spondylosis. Cholecystectomy cli ps in the upper abdomen. IMPRESSION: 1. No acute cardiopulmonary disease. Reviewed, dictated and finalized at location B. 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
== END ==
PROVIDERS: PCP Family Medicine; Visit Provider Clinical Nurse Specialist
DX: R05.9 Cough, unspecified (principal); R06.2 Wheezing
CPT/HCPCS: 71046

== ENCOUNTER 2022-05-15 06:36 | Emergency (ER) | payer MEDICARE, BC, SELFPAY ==
[2022-05-15] VITALS (22 sets, daily range): BP systolic 112–145; BP diastolic 69–103; PULSE 89–97; RESP 15–23; TEMP 36.6–36.8; O2SAT 95–100
--- NOTE | ~2022-05-15 | CT_ITS ---
EXAMINATION: CTA chest PE protocol DATE: 05/15/2022 08:45 INDICATION: Shortness of breath TECHNIQUE: Computed tomography angiography (CTA) of the chest was performed with 100 mL Omnipaque-350 intravenous contrast timed to evaluate the pulmonary arteries. Coronal maximum intensity projection 3D-reconstructions were created by the technologist. The dose-length product (DLP) was 885.61 mGy-cm. Automated exposure control and iterative reconstruction technique were employed. COMPARISON: None. FINDINGS: Respiratory motion artifact slightly limits the examination. There is mild dependent atelec tasis. No pleural effusion or pneumothorax. The pulmonary arteries are well-opacified. No pulmonary e mbolism is identified. No pathologically enlarged thoracic lymph nodes are identified. The heart size is normal. Calcified coronary artery atherosclerosis is noted. The gallbladder is surgically absent. There is moderate thoracic spondylosis. IMPRESSION: 1. No pulmonary embolism identified. Reviewed, dictated and finalized at location B. L LOT OPERATOR
--- NOTE | 2022-05-15 07:11 | ECG_ITS ---
Measurements Intervals [place] Rate: 93 P: 69 MN: 145 QRS: 40 QRSD: 94 T: 53 QT: 357 QTc: 445 Interpretive Statements SINUS RHYTHM WITH OCCASIONAL VENTRICULAR PREMATURE COMPLEXES POSSIBLE LEFT ATRIAL ENLARGEMENT [-0.1mV P WAVE IN V1/V2] CONSIDER PREVIOUS SEPTAL MN COMPARED TO ECG 12/12/2020 13:34:11 Q-WAVES SEEN IN V2 AND NO LONGER SEEN IN AVF Electronically Signed On 05-15-2022 15:24:02 WHARFINGER CHIEF by Marcelino Ferguson M.D.
--- NOTE | 2022-05-15 07:25 | ED.GENADULT ---
HPI - General Adult General Chief complaint: Shortness of Breath/Dyspnea Stated complaint: sob Time Seen by Provider: 05/15/22 06:58 History of Present Illness HPI narrative: 66-year-old female presented to the emergency department for evaluation of worsening shortness of breath. Patient states that she did have a hernia repair surgery approximately 2 weeks ago. Since that surgery she has had worsening shortness of breath. Patient has had follow-up with her primary care physician and was started on albuterol and ipratropium. Patient was also on a course of steroids and antibiotics. Patient states that the symptoms have not improved. Patient denies any prior history of asthma COPD and states she is not a smoker. Related Data Home Medications Medication Instructions Recorded Confirmed aspirin 81 mg tablet,delayed 81 mg PO DAILY 09/04/19 05/13/22 release (Aspir-) turmeric 500 mg-black pepper 1 cap PO DAILY 11/04/20 05/13/22 extract 3 mg capsule brimonidine 0.15 % eye drops 1 drp EACH EYE Q12H 12/10/20 05/13/22 tramadol 50 mg tablet 50 mg PO BID PRN Pain 09/25/21 05/13/22 multivitamin 1 tablet PO DAILY 01/29/22 05/13/22 cholecalciferol (vitamin D3) 250 125 mcg PO DAILY 03/05/22 05/13/22 mcg (10,000 unit) tablet B6 1.7 mg-folic 400 mcg-B12 2.4 2 cap PO DAILY 04/07/22 05/13/22 whb-coybpv-utyucwornnct oral capsule (Neuriva Plus Brain Performance) apple cider vinegar 600 mg capsule 600 mg PO DAILY 04/07/22 05/13/22 biotin 1,000 mcg chewable tablet 1,500 mcg PO DAILY 04/07/22 05/13/22 lysine 1,000 mg tablet 1,000 mg PO DAILY 04/07/22 05/13/22 mecobalamin (vitamin B12) 1,000 1,000 mcg PO DAILY 04/07/22 05/13/22 mcg chewable tablet (B12 Active) turmeric 400 mg capsule 400 mg PO DAILY 04/07/22 05/13/22 vitamin E (dl, acetate) 180 mg 180 mg PO DAILY 04/07/22 05/13/22 (400 unit) capsule vitamin K2 (MK-4) 100 mcg tablet 100 mcg PO DAILY 04/07/22 05/13/22 folic acid 800 mcg tablet 0.8 mg PO DAILY 04/27/22 05/13/22 Allergies Allergy/AdvReac Type Severity Reaction Status Date / Time No Known Allergies Allergy Verified 05/13/22 08:53 Review of Systems Review of Systems: CONSTITUTIONAL: Denies fever, chills, or sweats. EYES: Denies visual changes, redness, or discharge. ENT: Denies rhinorrhea, congestion, sore throat, or otalgia. CARDIOVASCULAR: Denies chest pain, palpitations, or edema. RESPIRATORY: See HPI GASTROINTESTINAL: Denies abdominal pain, nausea, vomiting, or diarrhea. GENITOURINARY: Denies dysuria or hematuria. SKIN: Denies rash or itching. MUSCULOSKELETAL: Denies back pain, joint pain, or myalgia. NEUROLOGIC: Denies headache, numbness, or weakness. [facility] Past Medical History Medical History Bulging discs Chronic pain syndrome Gestational diabetes Hx of migraines Hyperlipidemia Hypertension IBS (irritable bowel syndrome) KAYLA (obstructive sleep apnea) Osteoporosis Scoliosis Thyroid disorder Surgical History Surgical History H/O arthroscopic knee surgery H/O hernia repair (2) History of incisional hernia repair Laparoscopic 3cm incarcerated incisional hernia repair with mesh, Da Sudha assisted 04/14/22. Family History Family History Father Diabetes mellitus Hypertension Family history of cardiovascular disease Cerebrovascular accident Mother Diabetes mellitus Hypertension Family history of cardiovascular disease Cerebrovascular accident Sibling Diabetes mellitus Hypertension Family history of cardiovascular disease Family history of malignant neoplasm of ovary Depression Cerebrovascular accident Thyroid disorder Grandparent Diabetes mellitus Hypertension Son Depression Daughter Depression Hypertension Social History Social History Social Histo
[2022-05-15 07:39] LABS: Basophils Absolute Auto 0.1 K/mm3 (0.0-0.1); Eosinophils Absolute Auto 0.7 K/mm3 (0-0.3); Eosinophils Percent Auto 7.9 % (0-4.4); Hematocrit 43.6 % (37.0-47.0); Hemoglobin 14.5 g/dL (12.0-15.0); Immature Granulocyte Absolute 0.05 K/mm3 (0.00-0.031); Immature Granulocyte Percent A 0.6 % (0-0.5); Lymphocytes Absolute Auto 1.46 K/mm3 (0.9-3.2); Lymphocytes Percent Auto 16.7 % (18.3-44.2); Mean Corpuscular HGB Conc 33.3 g/dl (32-36); Mean Corpuscular Hemoglobin 30.1 pg (26-34); Mean Corpuscular Volume 90.6 fl (80-100); Mean Platelet Volume 10.4 fl (7.4-10.4); Monocytes Absolute Auto 0.5 K/mm3 (0.1-0.6); Monocytes Percent Auto 5.4 % (2.6-8.5); Neutrophils Percent Auto 68.4 % (45.5-73.1); Platelet Count Result 285 k/mm3 (150-375); Red Blood Count 4.81 M/mm3 (4.2-5.4); Red Cell Distribution Width 14.3 % (11.5-14.5); White Blood Count 8.7 K/mm3 (4.5-10.0)
[2022-05-15] MEDS: IPRATROPIUM BR 0.02% INH SOLN 0.5 MG/2.5 ML VIAL 2 MG INHALATION (07:41)
[2022-05-15] MEDS: ALBUTEROL SULFATE NEB 2.5 MG/3 ML INH 10 MG INHALATION (07:41)
[2022-05-15 07:49] LABS: Alanine Aminotransferase 15 U/L (6-35); Albumin Level 5.2 g/dL (3.5-5.1); Alkaline Phosphatase 101 U/L (38-126); Anion Gap 10 mmol/L (8-16); Aspartate Amino Transferase 19 U/L (14-36); Bilirubin,Total 0.5 mg/dL (0.2-1.3); Blood Urea Nitrogen 23 mg/dL (7-17); Calcium 9.8 mg/dL (8.4-10.2); Carbon Dioxide 26 mmol/L (22-30); Chloride 102 mmol/L (98-107); Estimated CRCL calculation 52 ml/min; Estimated Glomerular Filt Rate 45; Glucose 141 mg/dL (65-110); Potassium 3.4 mmol/L (3.4-5.0); Sodium 138 mmol/L (137-145)
[2022-05-15 08:06] LABS: D Dimer 0.94 ug/mL (<0.48)
[2022-05-15 08:14] LABS: Influenza A QL RT-PCR Negative (Negative); Influenza B QL RT-PCR Negative (Negative); RSV RNA, RT-PCR Negative (Negative); SARS-CoV-2 RNA PCR Negative
[2022-05-15] MEDS: predniSONE 40 MG, predniSONE 10 MG 50 MG PO (10:10)
[2022-05-15] MEDS: AZITHROMYCIN 250 MG TABLET 500 MG PO (10:14)
== END 2022-05-15 10:27 | disposition home or self-care (01) ==
PROVIDERS: Emergency Provider Emergency Medicine; PCP Family Medicine
DX: J18.9 Pneumonia, unspecified organism (principal); R06.2 Wheezing; Z20.822 Contact with and (suspected) exposure to COVID-19; I10 Essential (primary) hypertension; E78.5 Hyperlipidemia, unspecified; K58.9 Irritable bowel syndrome, unspecified; M81.0 Age-related osteoporosis without current pathological fracture; G47.33 Obstructive sleep apnea (adult) (pediatric); E07.9 Disorder of thyroid, unspecified; G89.4 Chronic pain syndrome; Z87.891 Personal history of nicotine dependence; Z79.82 Long term (current) use of aspirin; R94.31 Abnormal electrocardiogram [ECG] [EKG]; I49.3 Ventricular premature depolarization
CPT/HCPCS: 36415; 71275; 80053; 85025; 85380; 87637; 93005; 94640; 99284; A9270; J7512; Q9967

== ENCOUNTER 2022-05-27 20:07 | Emergency (ER) | payer MEDICARE, BC, SELFPAY ==
--- NOTE | ~2022-05-27 | XR_ITS ---
Clinical Indication: Cough PA and lateral views of the chest: Comparison: 04/24/2022 Findings: The lungs are clear, without evidence of focal consolidation or pleural effusion. Cardiome diastinal silhouette is within normal limits. Bones and soft tissues are unremarkable. Impression: Normal chest. Reviewed, dictated and finalized at [facility]. AL INTELLIGENCE ANALYST Impression: Normal chest.
--- NOTE | ~2022-05-27 | CT_ITS ---
Clinical Indication: Pulmonary embolus, abdominal pain CT Scan of the Chest, Abdomen, and Pelvis with Contrast: Technique: Contiguous sections were acquired throughout the chest, abdomen, and pelvis after intraven ous administration of 100 cc of Omnipaque 350. Dose reduction technique was used on this scan by darwin hogan automated exposure control and iterative reconstruction technique. The dose-length product (DL P) was 2263.71 mGy-cm. COMPARISON: 05/15/2022 and 08/11/2021 Findings: There is no evidence of any significant mediastinal, hilar or axillary lymphadenopathy. The mediastin al soft tissues appear normal. No pulmonary embolus. No aortic aneurysm or dissection. There is no evidence of pleural or pericardial effusion. The lungs are clear. No pulmonary nodules or infiltrates are noted. The liver, spleen, pancreas, adrenals and kidneys are within normal limits. Cholecystectomy clips pre sent. No evidence of aortic aneurysm. No lymphadenopathy. No bowel obstruction or bowel wall thickening. There is no evidence to suggest acute appendicitis. Th ere is a 10.3 x 6.7 x 12.3 cm intramuscular hematoma in the right rectus abdominis musculature. Urinary bladder is unremarkable. Patient is post hysterectomy. 3.8 cm probable right ovarian cyst pre sent, adjacent to the cecum. No ascites. Impression: 10.3 x 6.7 x 12.3 cm intramuscular hematoma in the right rectus abdominis musculature. No pulmonary embolus. 3.8 cm probable right ovarian cyst, adjacent to the cecum. Consider one-year follow-up exam. Reviewed, dictated and finalized at [facility]. ING MACHINE ATTENDANT Impression: 10.3 x 6.7 x 12.3 cm intramuscular hematoma in the right rectus abdominis muscu lature. No pulmonary embolus. 3.8 cm probable right ovarian cyst, adjacent to the cecum. Consider one-year fo llow-up exam.
[2022-05-27 20:10] VITALS: BP 156/102; PULSE 86; RESP 16; TEMP 36.8; O2SAT 97
[2022-05-27 22:10] VITALS: BP 151/70; PULSE 87; RESP 20; O2SAT 96
[2022-05-27 22:11] VITALS: TEMP 36.7
[2022-05-28] VITALS (20 sets, daily range): BP systolic 132–152; BP diastolic 82–98; PULSE 82–90; RESP 13–20; O2SAT 90–95
[2022-05-28] MEDS: MORPHINE SULFATE (*CRX) 4 MG/ML INJ IV PUSH (03:04)
[2022-05-28 03:15] LABS: Basophils Absolute Auto 0.1 K/mm3 (0.0-0.1); Basophils Percent Auto 0.4 % (0.2-1.2); Eosinophils Absolute Auto 0.5 K/mm3 (0-0.3); Eosinophils Percent Auto 4.3 % (0-4.4); Hematocrit 36.3 % (37.0-47.0); Hemoglobin 12.1 g/dL (12.0-15.0); Immature Granulocyte Absolute 0.05 K/mm3 (0.00-0.031); Immature Granulocyte Percent A 0.4 % (0-0.5); Lymphocytes Absolute Auto 0.82 K/mm3 (0.9-3.2); Lymphocytes Percent Auto 6.9 % (18.3-44.2); Mean Corpuscular HGB Conc 33.3 g/dl (32-36); Mean Corpuscular Hemoglobin 30.6 pg (26-34); Mean Corpuscular Volume 91.9 fl (80-100); Monocytes Absolute Auto 0.4 K/mm3 (0.1-0.6); Neutrophils Absolute Auto 10.1 K/mm3 (1.3-6.7); Platelet Count Result 298 k/mm3 (150-375); Red Blood Count 3.95 M/mm3 (4.2-5.4); Red Cell Distribution Width 14.2 % (11.5-14.5); White Blood Count 11.9 K/mm3 (4.5-10.0)
--- NOTE | 2022-05-28 03:23 | ED.ABDPAIN ---
HPI - Abdominal Pain General Chief Complaint: Abdominal Pain Stated Complaint: pain at abd incision site Time Seen by Provider: 05/28/22 02:24 Source: RN notes reviewed History of Present Illness HPI narrative: Patient presents emergency department from home via EMS for abdominal pain. Patient states that she had an umbilical hernia repaired by Dr. Sol on April 14, 2022. States that since that time she has had bronchitis and upper respiratory infection that causes her to cough frequently. She states that this evening the coughing has become worse and is was causing her to have belly pain she states that the belly pain is worse across the lower abdomen worse in the right lower quadrant. States the pain became so severe this evening she the ER for further evaluation. She denies having any fevers or chills she denies any chest pain nausea vomiting diarrhea or any other symptoms. States she does followed up with her surgeon earlier this week and had been noted to be healing fine Related Data Home Medications Medication Instructions Recorded Confirmed aspirin 81 mg tablet,delayed 81 mg PO DAILY 09/04/19 05/25/22 release (Aspir-) turmeric 500 mg-black pepper 1 cap PO DAILY 11/04/20 05/25/22 extract 3 mg capsule brimonidine 0.15 % eye drops 1 drp EACH EYE Q12H 12/10/20 05/25/22 tramadol 50 mg tablet 50 mg PO BID PRN Pain 09/25/21 05/25/22 multivitamin 1 tablet PO DAILY 01/29/22 05/25/22 cholecalciferol (vitamin D3) 250 125 mcg PO DAILY 03/05/22 05/25/22 mcg (10,000 unit) tablet vitamin E (dl, acetate) 180 mg 180 mg PO DAILY 04/07/22 05/25/22 (400 unit) capsule vitamin K2 (MK-4) 100 mcg tablet 100 mcg PO DAILY 04/07/22 05/25/22 folic acid 800 mcg tablet 0.8 mg PO DAILY 04/27/22 05/25/22 biotin 1,000 mcg chewable tablet 10,000 mcg PO BID 05/25/22 05/25/22 Allergies Allergy/AdvReac Type Severity Reaction Status Date / Time No Known Allergies Allergy Verified 05/25/22 10:50 Review of Systems Review of Systems: Gen.: Denies fevers or chills ENT: Denies congestion Respiratory: Denies shortness of breath reports cough CV: Denies chest pain or palpitations GI: Reports abdominal pain, denies nausea, emesis or diarrhea denies burning, urgency, frequency or hematuria Musculoskeletal: Denies back pain or muscle pain Neuro: Denies numbness, tingling, weakness or focal weakness Skin: Denies rash Except as documented, all other systems reviewed and negative [facility] Past Medical History Medical History Bulging discs Chronic pain syndrome Gestational diabetes Hx of migraines Hyperlipidemia Hypertension IBS (irritable bowel syndrome) KAYLA (obstructive sleep apnea) Osteoporosis Scoliosis Thyroid disorder Surgical History Surgical History H/O arthroscopic knee surgery H/O hernia repair (2) History of incisional hernia repair Laparoscopic 3cm incarcerated incisional hernia repair with mesh, Da Sudha assisted 04/14/22. Family History Family History Father Diabetes mellitus Hypertension Family history of cardiovascular disease Cerebrovascular accident Mother Diabetes mellitus Hypertension Family history of cardiovascular disease Cerebrovascular accident Sibling Diabetes mellitus Hypertension Family history of cardiovascular disease Family history of malignant neoplasm of ovary Depression Cerebrovascular accident Thyroid disorder Grandparent Diabetes mellitus Hypertension Son Depression Daughter Depression Hypertension Social History Social History Social History: Caffeine-coffee/tea Smoking packs per day: 2.5 Smoking cigarettes per day: 50.0 Years smoked: 21 Smoking pack-years: 52.50 Smoking status: Never smoker Tobacco type: cigarettes Smoking end date: 0
[2022-05-28 03:27] LABS: Alanine Aminotransferase 16 U/L (6-35); Alkaline Phosphatase 92 U/L (38-126); Anion Gap 8 mmol/L (8-16); Aspartate Amino Transferase 23 U/L (14-36); Bilirubin,Total 0.6 mg/dL (0.2-1.3); Blood Urea Nitrogen 16 mg/dL (7-17); Carbon Dioxide 23 mmol/L (22-30); Chloride 103 mmol/L (98-107); Estimated CRCL calculation 62 ml/min; Estimated Glomerular Filt Rate 56; Glucose 158 mg/dL (65-110); Lactic Acid Reflex 0.8 mmol/L (0.7-2.0); Potassium 3.5 mmol/L (3.4-5.0); Sodium 134 mmol/L (137-145)
[2022-05-28 03:32] LABS: D Dimer 1.15 ug/mL (<0.48)
[2022-05-28 03:34] LABS: Lipase 35 U/L (23-300)
[2022-05-28 03:51] LABS: Appearance Urine Clear (Clear); Bilirubin Urine Negative (Negative); Blood Urine Negative (Negative); Color Urine Yellow (Yellow); Glucose Urine UA Negative (Negative); Ketones Urine 1+ mg/dL (Negative); Leukocyte Esterase Ur Negative LEU/UL (Negative); Nitrate Urine Negative (Negative); Protein Urine Negative (Negative); Specific Grav Ur 1.021 (1.001-1.035); Urobilinogen Urine 0.2 mg/dL (<2.0)
[2022-05-28 04:20] LABS: Add Urine Microscopic? YES
[2022-05-28 05:07] LABS: Partial Thromboplastin Time 30.2 SECONDS (22.3-36.8); Prothrombin Time 12.9 Seconds (11.1-14.7)
[2022-05-28] MEDS: HYDROcodone/acetaminophen (*CRX) 5-325 MG TABLET 1 TAB PO (06:41)
[2022-05-28] MEDS: predniSONE 20 MG TABLET 60 MG PO (06:41)
[2022-05-28 06:53] LABS: Influenza A QL RT-PCR Negative (Negative); Influenza B QL RT-PCR Negative (Negative); RSV RNA, RT-PCR Negative (Negative); SARS-CoV-2 RNA PCR Positive
== END 2022-05-28 07:30 | disposition home or self-care (01) ==
PROVIDERS: Physician Assistant; Emergency Provider Emergency Medicine; PCP Family Medicine
DX: U07.1 COVID-19 (principal); K91.870 Postprocedural hematoma of a digestive system organ or structure following a digestive system procedure; I10 Essential (primary) hypertension; E78.5 Hyperlipidemia, unspecified; E07.9 Disorder of thyroid, unspecified; G47.33 Obstructive sleep apnea (adult) (pediatric); G89.4 Chronic pain syndrome; M81.0 Age-related osteoporosis without current pathological fracture; Z87.891 Personal history of nicotine dependence; Z79.82 Long term (current) use of aspirin; L76.32 Postprocedural hematoma of skin and subcutaneous tissue following other procedure; R93.89 Abnormal findings on diagnostic imaging of other specified body structures
CPT/HCPCS: 36415; 71046; 71275; 74177; 80053; 81001; 83605; 83690; 85025; 85380; 85610; 85730; 87637; 96374; 99284; A9270; J2270; J7512; Q9967

== ENCOUNTER 2022-05-31 15:26 | Emergency (ER) | payer MEDICARE, BC, SELFPAY ==
--- NOTE | ~2022-05-31 | CT_ITS ---
EXAMINATION: CTA chest PE abdomen pel DATE: 05/31/2022 23:26 INDICATION: Shortness of breath. Covid-positive. Recent hernia surgery. Right abdominal wall hematoma . TECHNIQUE: Computed tomography angiography (CTA) of the chest, abdomen and pelvis was performed with 100 mL Omnipaque-350 intravenous contrast timed to evaluate the pulmonary arteries. Coronal maximum i ntensity projection 3D-reconstructions were created by the technologist. Automated exposure control a nd iterative reconstruction technique were employed. Exam dose: 2298.43 mGy-cm total exam DLP. COMPARISON: 05/28/2022 CTA chest abdomen pelvis FINDINGS: There is suboptimal contrast opacification of the pulmonary arteries, limiting evaluation f or pulmonary embolism. No central pulmonary embolus is identified. There is calcified atherosclerosis of the aortic arch. No thoracic aortic aneurysm. No hilar or mediastinal mass lesion or lymphadenopathy. Normal heart size. No pericardial or pleural effusion. Status post cholecystectomy. The liver, spleen are unremarkable. No bile duct dilatation. There are multiple pancreatic calcificat ions consistent with chronic pancreatitis. No pancreatic mass lesion or ductal dilatation is noted. Normal morphology of the adrenal glands. No renal mass lesion or urinary tract calculus or hydroureteronephrosis. The urinary bladder is unrem arkable. Uterus and adnexal areas are unremarkable. There is atherosclerotic calcification but normal caliber of the abdominal aorta. No intraperitoneal or retroperitoneal or pelvic mass lesion or adenopathy or ascites. No evidence of appendicitis. Diverticulosis of left and to a lesser extent right colon. No CT evidenc e of diverticulitis. No bowel obstruction, bowel wall thickening, pneumatosis or intraperitoneal free air. Prominent right rectus abdominous hematoma is again noted. Degenerative changes of the thoracic and lumbar spine including prominent spurring of the lower thora cic spine, severe degenerative disc disease at L4-5 and L5-S1, severe degenerative change at the apop hyseal joints at L5-S1 with associated borderline grade 1/grade 2 anterolisthesis at L5-S1 IMPRESSION: Suboptimal opacification of pulmonary, limiting evaluation of pulmonary embolism. No gee tral pulmonary embolus is identified Status post cholecystectomy Chronic pancreatitis Diverticulosis of the colon; no CT evidence of diverticulitis Persistent prominent right rectus abdominis hematoma Reviewed, dictated and finalized at [facility]. Reviewed, dictated and finalized at [facility]. [employer] IMPRESSION: Suboptimal opacification of pulmonary, limiting evaluation of pulm onary embolism. No central pulmonary embolus is identified Status post cholecystectomy Chronic pancreatitis Diverticulosis of the colon; no CT evidence of diverticulitis Persistent prominent right rectus abdominis hematoma
[2022-05-31 15:54] VITALS: BP 144/94; PULSE 91; RESP 18; TEMP 36.3; O2SAT 99
[2022-05-31 18:40] LABS: Basophils Absolute Auto 0.1 K/mm3 (0.0-0.1); Basophils Percent Auto 0.7 % (0.2-1.2); Eosinophils Absolute Auto 0.2 K/mm3 (0-0.3); Eosinophils Percent Auto 1.5 % (0-4.4); Hemoglobin 10.8 g/dL (12.0-15.0); Immature Granulocyte Percent A 1.8 % (0-0.5); Lymphocytes Absolute Auto 2.16 K/mm3 (0.9-3.2); Lymphocytes Percent Auto 19.4 % (18.3-44.2); Mean Corpuscular HGB Conc 32.7 g/dl (32-36); Mean Corpuscular Hemoglobin 30.4 pg (26-34); Mean Platelet Volume 8.9 fl (7.4-10.4); Monocytes Absolute Auto 0.5 K/mm3 (0.1-0.6); Monocytes Percent Auto 4.3 % (2.6-8.5); Neutrophils Absolute Auto 8.1 K/mm3 (1.3-6.7); Neutrophils Percent Auto 72.3 % (45.5-73.1); Nucleated Red Blood Cells Absolute Auto 0.1 K/mm3 (0.0-0.012); Nucleated Red Blood Cells Perc 0.5 % (0.0-0.2); Platelet Count Result 404 k/mm3 (150-375); Red Blood Count 3.55 M/mm3 (4.2-5.4); Red Cell Distribution Width 14.4 % (11.5-14.5); White Blood Count 11.2 K/mm3 (4.5-10.0)
[2022-05-31 18:48] VITALS: BP 104/66; PULSE 68; RESP 18; TEMP 36.3; O2SAT 97
[2022-05-31 18:51] LABS: Lipase 55 U/L (23-300)
[2022-05-31 18:53] LABS: Prothrombin Time 12.6 Seconds (11.1-14.7)
[2022-05-31 18:54] LABS: Alanine Aminotransferase 16 U/L (6-35); Albumin Level 4.5 g/dL (3.5-5.1); Alkaline Phosphatase 87 U/L (38-126); Anion Gap 6 mmol/L (8-16); Aspartate Amino Transferase 26 U/L (14-36); Bilirubin,Total 0.7 mg/dL (0.2-1.3); Blood Urea Nitrogen 13 mg/dL (7-17); Calcium 9.6 mg/dL (8.4-10.2); Carbon Dioxide 30 mmol/L (22-30); Chloride 97 mmol/L (98-107); Estimated CRCL calculation 56 ml/min; Estimated Glomerular Filt Rate 50; Glucose 109 mg/dL (65-110); Partial Thromboplastin Time 26.4 SECONDS (22.3-36.8); Potassium 3.6 mmol/L (3.4-5.0); Sodium 133 mmol/L (137-145)
[2022-05-31 20:50] VITALS: BP 117/83; PULSE 84; RESP 22; O2SAT 97
[2022-05-31] MEDS: MORPHINE SULFATE (*CRX) 4 MG/ML INJ IV PUSH (20:56)
--- NOTE | 2022-05-31 21:02 | ED.GENADULT ---
HPI - General Adult General Chief complaint: Unspecified Stated complaint: abd bruising Time Seen by Provider: 05/31/22 20:23 History of Present Illness HPI narrative: Patient 66-year-old female who presents the emergency department with chief complaint of cough and right-sided chest/abdominal pain. Patient reports also she is having shortness of breath patient was recently diagnosed with COVID-19 although has been having respiratory symptoms since March. The patient recently had abdominal surgery and subsequently developed a rectus hematoma that has been treated with pain control the patient reports that the [place] that she has been taking at home has not been relieving her pain Related Data Home Medications Medication Instructions Recorded Confirmed aspirin 81 mg tablet,delayed 81 mg PO DAILY 09/04/19 05/25/22 release (Aspir-) turmeric 500 mg-black pepper 1 cap PO DAILY 11/04/20 05/25/22 extract 3 mg capsule brimonidine 0.15 % eye drops 1 drp EACH EYE Q12H 12/10/20 05/25/22 tramadol 50 mg tablet 50 mg PO BID PRN Pain 09/25/21 05/25/22 multivitamin 1 tablet PO DAILY 01/29/22 05/25/22 cholecalciferol (vitamin D3) 250 125 mcg PO DAILY 03/05/22 05/25/22 mcg (10,000 unit) tablet vitamin E (dl, acetate) 180 mg 180 mg PO DAILY 04/07/22 05/25/22 (400 unit) capsule vitamin K2 (MK-4) 100 mcg tablet 100 mcg PO DAILY 04/07/22 05/25/22 folic acid 800 mcg tablet 0.8 mg PO DAILY 04/27/22 05/25/22 biotin 1,000 mcg chewable tablet 10,000 mcg PO BID 05/25/22 05/25/22 Allergies Allergy/AdvReac Type Severity Reaction Status Date / Time No Known Allergies Allergy Verified 05/25/22 10:50 [facility] Past Medical History Medical History Bulging discs Chronic pain syndrome Gestational diabetes Hx of migraines Hyperlipidemia Hypertension IBS (irritable bowel syndrome) KAYLA (obstructive sleep apnea) Osteoporosis Scoliosis Thyroid disorder Surgical History Surgical History H/O arthroscopic knee surgery H/O hernia repair (2) History of incisional hernia repair Laparoscopic 3cm incarcerated incisional hernia repair with mesh, Da Sudha assisted 04/14/22. Family History Family History Father Diabetes mellitus Hypertension Family history of cardiovascular disease Cerebrovascular accident Mother Diabetes mellitus Hypertension Family history of cardiovascular disease Cerebrovascular accident Sibling Diabetes mellitus Hypertension Family history of cardiovascular disease Family history of malignant neoplasm of ovary Depression Cerebrovascular accident Thyroid disorder Grandparent Diabetes mellitus Hypertension Son Depression Daughter Depression Hypertension Social History Social History Social History: Caffeine-coffee/tea Smoking packs per day: 2.5 Smoking cigarettes per day: 50.0 Years smoked: 21 Smoking pack-years: 52.50 Smoking status: Never smoker Tobacco type: cigarettes Smoking end date: 12/10/94 Alcohol intake: current Alcohol use details: occasionally Substance use: current Substance use type: marijuana Other substance usage details: twice a week for pain in shoulder. Lack of Transportation: No Lack of Food: Never True Current Housing: I Have Housing Concerned About Future Housing: No Difficulty Paying Gas/Electric Bills: No Difficulty Paying for Meds: YES Currently Unemployed: No Education: High School Diploma/GED Difficulty w/ Childcare or Family Care: No Living arrangements: alone Spiritual care concerns: No Course Vital Signs Vital signs: Vital Signs Temperature 36.3 C L 05/31/22 15:54 Pulse Rate 91 05/31/22 15:54 Respiratory Rate 18 05/31/22 15:54 Blood Pressure 144/94 H 05/31/22 15:54 Pulse Oximetry 99
[2022-05-31 21:21] LABS: Lactic Acid Reflex 1.1 mmol/L (0.7-2.0); Magnesium 2.2 mg/dL (1.6-2.3)
[2022-05-31 21:33] LABS: Appearance Urine Clear (Clear); Bilirubin Urine Negative (Negative); Blood Urine Negative (Negative); Color Urine Yellow (Yellow); Glucose Urine UA Negative (Negative); Ketones Urine Negative (Negative); Leukocyte Esterase Ur Negative LEU/UL (Negative); Nitrate Urine Negative (Negative); Protein Urine Negative (Negative); Specific Grav Ur 1.012 (1.001-1.035); Urobilinogen Urine 0.2 mg/dL (<2.0); pH Urine 5.5 (5.0-9.0)
[2022-05-31 21:34] LABS: NT Pro B Type Natriuretic Pept 73 pg/mL (19.9-100); Troponin I < 0.012 ng/mL (0.000-0.034)
[2022-05-31 21:50] LABS: Add Urine Microscopic? NO
[2022-05-31 21:56] VITALS: BP 113/74; PULSE 69; RESP 13; O2SAT 94
[2022-05-31 22:13] LABS: Procalcitonin 0.1 ng/mL
--- NOTE | 2022-05-31 22:21 | PC.NURSE ---
Addendum entered by Shira Foley RN 05/31/22 22:48: Pt refuses CT scan until breathing treatment is completed. Pt reports she is unable to lay flat Original Note: Called respiratory to follow up on breathing treatment, states she will be down soon.
--- NOTE | 2022-05-31 22:35 | PC.NURSE ---
Respiratory at bedside
[2022-05-31] MEDS: ALBUTEROL SULFATE NEB 2.5 MG/3 ML INH INHALATION (22:36)
[2022-05-31 22:39] VITALS: PULSE 73; RESP 20
[2022-05-31 22:46] VITALS: PULSE 75; RESP 20
[2022-06-01] MEDS: oxyCODONE/ACETAMINOPHEN (*CRX) 5-325 MG TABLET 2 TABLET PO (00:38)
[2022-06-01 00:40] VITALS: BP 123/87; PULSE 90; RESP 19; O2SAT 96
== END 2022-06-01 00:40 | disposition home or self-care (01) ==
PROVIDERS: General Practice; Physician Assistant; Emergency Provider Emergency Medicine; PCP Family Medicine
DX: K91.870 Postprocedural hematoma of a digestive system organ or structure following a digestive system procedure (principal); U07.1 COVID-19; I10 Essential (primary) hypertension; E78.5 Hyperlipidemia, unspecified; E07.9 Disorder of thyroid, unspecified; K58.9 Irritable bowel syndrome, unspecified; G47.33 Obstructive sleep apnea (adult) (pediatric); G89.4 Chronic pain syndrome; M81.0 Age-related osteoporosis without current pathological fracture; Z87.891 Personal history of nicotine dependence; Z79.82 Long term (current) use of aspirin; R06.02 Shortness of breath; K86.1 Other chronic pancreatitis; K57.90 Diverticulosis of intestine, part unspecified, without perforation or abscess without bleeding
CPT/HCPCS: 36415; 71275; 74177; 80053; 81003; 83605; 83690; 83735; 83880; 84145; 84484; 85025; 85610; 85730; 94640; 96374; 99284; A9270; J2270; Q9967

== ENCOUNTER 2022-06-05 08:43 | Outpatient (CLI) | payer MEDICARE, BC, SELFPAY ==
[2022-06-05 19:27] LABS: Basophils Absolute Auto 0.1 K/mm3 (0.0-0.1); Eosinophils Absolute Auto 0.6 K/mm3 (0-0.3); Eosinophils Percent Auto 5.5 % (0-4.4); Hematocrit 35.5 % (37.0-47.0); Hemoglobin 11.3 g/dL (12.0-15.0); Immature Granulocyte Absolute 0.17 K/mm3 (0.00-0.031); Immature Granulocyte Percent A 1.6 % (0-0.5); Lymphocytes Percent Auto 27.6 % (18.3-44.2); Mean Corpuscular HGB Conc 31.8 g/dl (32-36); Mean Corpuscular Hemoglobin 30.5 pg (26-34); Mean Corpuscular Volume 95.9 fl (80-100); Mean Platelet Volume 9.5 fl (7.4-10.4); Monocytes Absolute Auto 0.5 K/mm3 (0.1-0.6); Monocytes Percent Auto 4.6 % (2.6-8.5); Neutrophils Absolute Auto 6.3 K/mm3 (1.3-6.7); Neutrophils Percent Auto 59.7 % (45.5-73.1); Nucleated Red Blood Cells Perc 0.3 % (0.0-0.2); Platelet Count Result 462 k/mm3 (150-375); Red Cell Distribution Width 16.2 % (11.5-14.5); White Blood Count 10.5 K/mm3 (4.5-10.0)
[2022-06-05 19:31] LABS: Anion Gap 7 mmol/L (8-16); Blood Urea Nitrogen 21 mg/dL (7-17); Calcium 9.1 mg/dL (8.4-10.2); Carbon Dioxide 28 mmol/L (22-30); Chloride 98 mmol/L (98-107); Estimated Glomerular Filt Rate 50; Glucose 118 mg/dL (65-110); Potassium 3.7 mmol/L (3.4-5.0); Sodium 133 mmol/L (137-145)
[2022-06-05 19:38] LABS: Free T4 Free Thyroxine 1.31 ng/mL (0.78-2.19)
== END 2022-06-05 08:44 | disposition home or self-care (01) ==
PROVIDERS: PCP Family Medicine; Visit Provider Nurse Practitioner
DX: E03.9 Hypothyroidism, unspecified (principal); F32.A Depression, unspecified; F41.9 Anxiety disorder, unspecified; S30.1XXA Contusion of abdominal wall, 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; X58.XXXA Exposure to other specified factors, 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; U07.1 COVID-19
CPT/HCPCS: 36415; 80048; 84439; 84443; 85025

== ENCOUNTER 2022-06-10 18:26 | Emergency (ER) | payer MEDICARE, BC, SELFPAY ==
--- NOTE | ~2022-06-10 | XR_ITS ---
EXAM: XR hand LT min 3V DATE: 06/10/2022 19:24 HISTORY: Fall L Hand Pain in 3rd and 4th metacarpal area . COMPARISON: None available. FINDINGS: Normal mineralization. No fracture or dislocation. No lytic or blastic lesion. Polyarticul ar osteoarthritis. No erosion or periosteal change. Soft tissues within normal limits. IMPRESSION: No acute osseous finding in the left hand. Reviewed, dictated and finalized at [facility].
--- NOTE | ~2022-06-10 | XR_ITS ---
EXAM: XR hip RT min 3V w AP pelvis DATE: 06/10/2022 19:25 HISTORY: fall, Right hip pain . COMPARISON: 11/19/2010. FINDINGS: Normal mineralization. No fracture or dislocation. No lytic or blastic lesion. Mild bilate ral hip osteoarthritis. Degenerative changes in the lumbar spine and symphysis pubis. No erosion or p eriosteal change. Soft tissues within normal limits. IMPRESSION: No acute osseous finding in the pelvis or right hip. Reviewed, dictated and finalized at location [facility].
[2022-06-10 18:41] VITALS: BP 131/72; PULSE 80; RESP 16; TEMP 36.4; O2SAT 97
[2022-06-10] MEDS: ACETAMINOPHEN 500 MG TABLET 1000 MG PO (19:38)
[2022-06-10] MEDS: IBUPROFEN 400 MG TABLET 800 MG PO (20:16)
--- NOTE | 2022-06-10 20:17 | ED.GENADULT ---
HPI - General Adult General Chief complaint: Fall Stated complaint: Fall L Hand Pain and right hip pain Time Seen by Provider: 06/10/22 19:08 History of Present Illness HPI narrative: This 66-year-old female presenting to ED following a fall at [employer]. She was trying to pull a 40 pack of water out from underneath a shelf when she fell backwards onto her right hip. She denies head trauma or loss of consciousness. There was no prodrome this is a purely mechanical fall. She sustained injuries to the anterior portion of her right hip and some mild bruising at the base of her 3rd finger on her left hand. Patient denies any other injuries. Related Data Home Medications Medication Instructions Recorded Confirmed aspirin 81 mg tablet,delayed 81 mg PO DAILY 09/04/19 06/05/22 release (Aspir-) brimonidine 0.15 % eye drops 1 drp EACH EYE Q12H 12/10/20 06/05/22 cholecalciferol (vitamin D3) 250 125 mcg PO DAILY 03/05/22 06/05/22 mcg (10,000 unit) tablet Allergies Allergy/AdvReac Type Severity Reaction Status Date / Time No Known Allergies Allergy Verified 06/10/22 18:48 [facility] Past Medical History Medical History Bulging discs Chronic pain syndrome Gestational diabetes Hx of migraines Hyperlipidemia Hypertension IBS (irritable bowel syndrome) KAYLA (obstructive sleep apnea) Osteoporosis Scoliosis Thyroid disorder Surgical History Surgical History H/O arthroscopic knee surgery H/O hernia repair (2) History of incisional hernia repair Laparoscopic 3cm incarcerated incisional hernia repair with mesh, Da Sudha assisted 04/14/22. Family History Family History Father Diabetes mellitus Hypertension Family history of cardiovascular disease Cerebrovascular accident Mother Diabetes mellitus Hypertension Family history of cardiovascular disease Cerebrovascular accident Sibling Diabetes mellitus Hypertension Family history of cardiovascular disease Family history of malignant neoplasm of ovary Depression Cerebrovascular accident Thyroid disorder Grandparent Diabetes mellitus Hypertension Son Depression Daughter Depression Hypertension Social History Social History Social History: Caffeine-coffee/tea Smoking packs per day: 2.5 Smoking cigarettes per day: 50.0 Years smoked: 21 Smoking pack-years: 52.50 Smoking status: Never smoker Tobacco type: cigarettes Smoking end date: 12/10/94 Alcohol intake: current Alcohol use details: occasionally Substance use: current Substance use type: marijuana Other substance usage details: twice a week for pain in shoulder. Lack of Transportation: No Lack of Food: Never True Current Housing: I Have Housing Concerned About Future Housing: No Difficulty Paying Gas/Electric Bills: No Difficulty Paying for Meds: YES Currently Unemployed: No Education: High School Diploma/GED Difficulty w/ Childcare or Family Care: No Living arrangements: alone Spiritual care concerns: No Exam Narrative: APPEARANCE: No apparent distress. Head: atraumatic. EYES: EOMI, NOSE: Atraumatic NECK: Trachea midline RESPIRATORY: No increased rate of breathing CARDIOVASCULAR: RRR, ABDOMINAL: Non-distended MUSCULOSKELETAl: Mild bruising without significant deformity to the base of the left 3rd finger. Tenderness to palpation over the lateral aspect of the right hip with a mild small area of ecchymosis. NEURO: Alert. Moving 4/4 extremities SKIN:: Warm, dry. Normal color PSYCHIATRIC: Normal affect Course Vital Signs Vital signs: Vital Signs Temperature 97.5 F L 06/10/22 18:41 Pulse Rate 80 06/10/22 18:41 Respiratory Rate 16 06/10/22 18:41 Blood Pressure 131/72 06/10/22 18:41 Pulse Oximetry 97
== END 2022-06-10 20:45 | disposition home or self-care (01) ==
PROVIDERS: Emergency Provider Emergency Medicine; PCP Family Medicine
DX: M79.642 Pain in left hand (principal); M25.552 Pain in left hip; E78.5 Hyperlipidemia, unspecified; I10 Essential (primary) hypertension; W18.39XA Other fall on same level, 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; Y92.512 Supermarket, store or market as the place of occurrence of the external cause; Z87.891 Personal history of nicotine dependence
CPT/HCPCS: 73130; 73502; 99284; A9270

== ENCOUNTER → 2022-06-25 15:55 | Outpatient (CLI) | payer MEDICARE, BC, SELFPAY ==
--- NOTE | ~2022-06-25 | XR_ITS ---
XR chest 2V DATE: 06/25/2022 16:08 INDICATION: Cough, shortness of breath TECHNIQUE: 2 views COMPARISON: 05/31/2022 CTA chest 05/28/2022 2 view chest: FINDINGS: Normal heart size. Aortic arch calcification. No pulmonary infiltrate or consolidation, pleural effusion or pulmonary vascular congestion or pneumo thorax is evident. Mild scoliosis and degenerative spurring of the thoracic spine. Surgical clips, right upper quadrant, consistent with cholecystectomy. IMPRESSION: No active cardiac pulmonary disease Aortic atherosclerosis Status post cholecystectomy Reviewed, dictated and finalized at location [facility].
== END ==
PROVIDERS: PCP Family Medicine; Visit Provider Family Medicine
DX: R05.9 Cough, unspecified (principal); R06.02 Shortness of breath; I70.0 Atherosclerosis of aorta; Z90.49 Acquired absence of other specified parts of digestive tract
CPT/HCPCS: 71046

== ENCOUNTER 2022-07-01 13:33 | Outpatient (NON) | payer MEDICARE, BC, SELFPAY | END 2022-07-01 13:34 | disposition home or self-care (01) | LOC: ANHGOSHLAB 13:37 | PROVIDERS: PCP Family Medicine; Visit Provider Family Medicine | DX: R05.9 Cough, unspecified (principal) | CPT/HCPCS: 87015; 87070; 87102; 87106; 87107; 87116; 87205; 87206 ==

== ENCOUNTER 2022-07-04 16:27 | Inpatient (IN) | payer MEDICARE, BC, SELFPAY ==
[2022-07-04] VITALS (12 sets, daily range): BP systolic 128–176; BP diastolic 83–92; PULSE 72–97; RESP 14–24; TEMP 36.5–36.7; O2SAT 90–100; BMI 35.5; BMI 35.9
--- NOTE | ~2022-07-04 | XR_ITS ---
EXAMINATION: XR chest 2V Exam Date/Time: 07/04/2022 17:14 CDT HISTORY: SOB, COUGH SINCE MAR, HTN, BRONCHITIS Comparison: 06/25/2022. RESULT: Lines, tubes, and devices: None. Lungs and pleura: Clear. Cardiomediastinal silhouette: Stable. Other: No acute osseous or upper abdominal finding. IMPRESSION: No acute cardiopulmonary process. Reviewed, dictated and finalized at location K.
--- NOTE | 2022-07-04 16:32 | ECG_ITS ---
Measurements Intervals [place] Rate: 83 P: 55 KS: 145 QRS: 41 QRSD: 101 T: 61 QT: 378 QTc: 447 Interpretive Statements SINUS RHYTHM BASELINE ARTIFACT NONSPECIFIC ST ABNORMALITY BORDERLINE ECG COMPARED TO ECG 05/15/2022 07:33:12 ST (T WAVE) DEVIATION NOW PRESENT Electronically Signed On 07-05-2022 13:36:59 CDT by Maurice Ward M.D.
[2022-07-04 16:56] LABS: Basophils Absolute Auto 0.1 K/mm3 (0.0-0.1); Basophils Percent Auto 1.1 % (0.2-1.2); Eosinophils Absolute Auto 0.7 K/mm3 (0-0.3); Eosinophils Percent Auto 10.6 % (0-4.4); Hematocrit 40.5 % (37.0-47.0); Hemoglobin 13.3 g/dL (12.0-15.0); Immature Granulocyte Absolute 0.02 K/mm3 (0.00-0.031); Immature Granulocyte Percent A 0.3 % (0-0.5); Lymphocytes Absolute Auto 0.95 K/mm3 (0.9-3.2); Lymphocytes Percent Auto 15.4 % (18.3-44.2); Mean Corpuscular HGB Conc 32.8 g/dl (32-36); Mean Corpuscular Hemoglobin 31.7 pg (26-34); Mean Corpuscular Volume 96.4 fl (80-100); Mean Platelet Volume 8.9 fl (7.4-10.4); Monocytes Absolute Auto 0.3 K/mm3 (0.1-0.6); Monocytes Percent Auto 5.5 % (2.6-8.5); Neutrophils Absolute Auto 4.1 K/mm3 (1.3-6.7); Neutrophils Percent Auto 67.1 % (45.5-73.1); Platelet Count Result 337 k/mm3 (150-375); Red Cell Distribution Width 15.3 % (11.5-14.5); White Blood Count 6.2 K/mm3 (4.5-10.0)
[2022-07-04 17:10] LABS: Alanine Aminotransferase 14 U/L (6-35); Albumin Level 4.6 g/dL (3.5-5.1); Alkaline Phosphatase 96 U/L (38-126); Anion Gap 8 mmol/L (8-16); Aspartate Amino Transferase 21 U/L (14-36); Bilirubin,Total 0.5 mg/dL (0.2-1.3); Blood Urea Nitrogen 13 mg/dL (7-17); Calcium 9.6 mg/dL (8.4-10.2); Carbon Dioxide 28 mmol/L (22-30); Chloride 100 mmol/L (98-107); Estimated CRCL calculation 55 ml/min; Estimated Glomerular Filt Rate 50; Glucose 125 mg/dL (65-110); Potassium 3.5 mmol/L (3.4-5.0); Sodium 136 mmol/L (137-145)
--- NOTE | 2022-07-04 19:11 | ED.SOB ---
HPI - SOB/Dyspnea General Chief Complaint: Shortness of Breath/Dyspnea Stated Complaint: SOB Time Seen by Provider: 07/04/22 19:10 Source: patient Mode of arrival: ambulatory Limitations: no limitations History of Present Illness HPI Narrative: 66 years old white female drove herself to the emergency room complaining of coughing since April 15, 2022. Patient has been in our emergency room for time with the same symptoms. Patient was treated numerous of time with antibiotic and destroyed with good recovery then the symptoms come back. Patient stated me that she is tired and weak and poor concentration unable to use her BiPAP at night because of the coughing. Currently is on nebulizer, steroid inhaler, cough medication and nasal spray without any improvement. History of COVID infection May 28, 2022 Related Data Home Medications Medication Instructions Recorded Confirmed aspirin 81 mg tablet,delayed 81 mg PO DAILY 09/04/19 06/21/22 release (Aspir-) brimonidine 0.15 % eye drops 1 drp EACH EYE Q12H 12/10/20 06/21/22 cholecalciferol (vitamin D3) 250 125 mcg PO DAILY 03/05/22 06/21/22 mcg (10,000 unit) tablet biotin 10,000 mcg disintegrating 10,000 mcg PO DAILY 06/15/22 06/21/22 tablet folic acid 800 mcg tablet 0.8 mg PO DAILY 06/15/22 06/21/22 multivitamin 1 tablet PO DAILY 06/15/22 06/21/22 vitamin K2 100 mcg capsule 100 mcg PO DAILY 06/15/22 06/21/22 Allergies Allergy/AdvReac Type Severity Reaction Status Date / Time No Known Allergies Allergy Verified 06/25/22 15:09 Review of Systems Review of Systems: All systems reviewed & are unremarkable except as noted in HPI and below PMFSH Past Medical History Medical History Bulging discs Chronic pain syndrome Gestational diabetes Hx of migraines Hyperlipidemia Hypertension IBS (irritable bowel syndrome) KAYLA (obstructive sleep apnea) Osteoporosis Scoliosis Thyroid disorder Surgical History Surgical History H/O arthroscopic knee surgery H/O hernia repair (2) History of incisional hernia repair Laparoscopic 3cm incarcerated incisional hernia repair with mesh, Da Sudha assisted 04/14/22. Family History Family History Father Diabetes mellitus Hypertension Family history of cardiovascular disease Cerebrovascular accident Mother Diabetes mellitus Hypertension Family history of cardiovascular disease Cerebrovascular accident Sibling Diabetes mellitus Hypertension Family history of cardiovascular disease Family history of malignant neoplasm of ovary Depression Cerebrovascular accident Thyroid disorder Grandparent Diabetes mellitus Hypertension Son Depression Daughter Depression Hypertension Social History Social History Social History: Caffeine-coffee/tea Smoking packs per day: 2.5 Smoking cigarettes per day: 50.0 Years smoked: 21 Smoking pack-years: 52.50 Smoking status: Never smoker Tobacco type: cigarettes Smoking end date: 12/10/94 Alcohol intake: current Alcohol use details: occasionally Substance use: current Substance use type: marijuana Other substance usage details: twice a week for pain in shoulder. Lack of Transportation: No Lack of Food: Never True Current Housing: I Have Housing Concerned About Future Housing: No Difficulty Paying Gas/Electric Bills: No Difficulty Paying for Meds: YES Currently Unemployed: No Education: High School Diploma/GED Difficulty w/ Childcare or Family Care: No Living arrangements: alone Spiritual care concerns: No Exam Narrative: General appearance: Well-developed, well-nourished Skin: Normal color Head: Normocephalic, nontraumatic Eyes: Clear conjunctiva ENT: Oropharynx normal, ears normal, nose normal Neck: Supple, n
[2022-07-04 20:51] LABS: Alveolar/Arterial O2 Gradient 36.1 mmHg; Base Excess ABG 1.8 mEq/l (+/-2.0); Device ROOM AIR; Fractional Inspired Oxygen 21 %; Modified Allen's Test Pass; Oxygen Content ABG 17.6 %vol (16.0-22.0); Oxygen Saturation ABG 91.2 % (95.0-100.0); Oxyhemoglobin 90.9 % THb (90.0-100.0); PCO2 ABG 44.4 mmHg (35.0-45.0); PO2 ABG 60.5 mmHg (80.0-100.0); PO2 FiO2 Ratio Arterial Blood 2.88 %; Site Drawn RIGHT RADIAL; Total Hemoglobin 13.8 g/dL (12.0-18.0); pH ABG 7.402 (7.350-7.450)
[2022-07-04] MEDS: methylPREDNISolone SOD SUCC 125 MG VIAL IV PUSH (21:45)
[2022-07-04] MEDS: IPRATROPIUM BR 0.02% INH SOLN 0.5 MG/2.5 ML VIAL INHALATION (22:04)
[2022-07-04] MEDS: LEVALBUTEROL NEB 1.25 MG/3 ML 2.5 MG INHALATION (22:04)
--- NOTE | 2022-07-04 22:27 | ADMGEN ---
This patient, Angelica Cowan, was admitted to [facility] Surg Room 313-01. Patient/family oriented to hospital policies and general routines including ID bracelet, bed and alarms, visiting hours, pain management, procedures, bathroom and other care routines, personal items, smoking policy, room service/diet, and visiting hours. Information on how to activate the Rapid Response Team has been discussed. Patient/Family are encouraged to report perceived risks to care and to ask questions if they do not understand what they are told or what they should do.
--- NOTE | 2022-07-04 22:27 | PM.IMHP ---
H&P: HPI History of Present Illness Date/Time: 07/04/22 22:27 Chief Complaint: Shortness of breath Narrative: This is a 66-year-old female with past medical history significant for hypertension, COPD/emphysema, COVID-19. Patient comes to the emergency room due to increasingly worsening shortness of breath, fatigue, decreased stamina, cough, now for several days, has been using her inhalers however has noted no improvement. Patient denies any fevers, rigors, chills has cough productive of sputum. Today patient presented to the emergency room after pulse oximeter at home showed an oxygen saturation of 89% to 91% on room air. patient has presented several times to the emergency room. A chest x-ray was reported as: RESULT: Lines, tubes, and devices:? None. Lungs and pleura:? Clear. Cardiomediastinal silhouette:? Stable. Other:? No acute osseous or upper abdominal finding. ? IMPRESSION: No acute cardiopulmonary process. Patient is been admitted for further evaluation management and treatment. Review of Systems Review of Systems: Shortness of breath, decreased stamina, low oxygen saturation. Constitutional: Constitutional: Denies chills, Reports fatigue, Denies fever(s), Reports lethargy, Denies malaise, Denies night sweats and Denies weakness Eyes: Eyes: Denies change in vision ENT: Denies dysphagia and Denies odynophagia Cardiovascular: Cardiovascular: Denies chest pain, Denies lightheadedness and Denies palpitations Respiratory: Respiratory: Denies chest congestion, Denies pain on inspiration, Denies dyspnea and Denies dyspnea on exertion Gastrointestinal: Gastrointestinal: Denies abdominal pain, Denies dyspepsia, Denies heartburn, Denies diarrhea, Denies nausea and Denies vomiting Genitourinary: Genitourinary: Denies dysuria Musculoskeletal: Musculoskeletal: Denies back pain, Denies joint swelling and Denies muscle weakness Integumentary/Breasts: Skin/Breast: Denies rash Neurologic: Denies focal weakness and Denies Sensory deficit (Neuro) Psychiatric: Psychiatric: Reports no additional psychiatric complaints and Reports as per HPI Endocrine: Endocrine: Denies cold intolerance, Denies flushing, Denies heat intolerance, Denies polyphagia, Denies polydipsia and Denies palpitations Hematologic/Lymphatic: Hematologic/Lymphatic: Reports no additional hematologic/lymphatic complaints and Reports as per HPI Allergic/Immunologic: Allergic/Immunologic: Reports no additional allergic/immunologic complaints and Reports as per HPI PMFSH Past Medical History Medical History Bulging discs Chronic pain syndrome Gestational diabetes Hx of migraines Hyperlipidemia Hypertension IBS (irritable bowel syndrome) KAYLA (obstructive sleep apnea) Osteoporosis Scoliosis Thyroid disorder Surgical History Surgical History H/O arthroscopic knee surgery H/O hernia repair (2) History of incisional hernia repair Laparoscopic 3cm incarcerated incisional hernia repair with mesh, Da Sudha assisted 04/14/22. Family History Family History Father Family history of cardiovascular disease Diabetes mellitus Hypertension Cerebrovascular accident Mother Family history of cardiovascular disease Diabetes mellitus Hypertension Cerebrovascular accident Sibling Family history of malignant neoplasm of ovary Family history of cardiovascular disease Diabetes mellitus Depression Hypertension Thyroid disorder Cerebrovascular accident Grandparent Diabetes mellitus Hypertension Son Depression Daughter Depression Hypertension Other Sleep apnea Social History Social History Social History: Caffeine-coffee/tea Smoking packs per day: 2.5 Smoking cigarettes per day: 50.0 Years smoked: 21 Smoking pack-ye
[2022-07-05] VITALS (17 sets, daily range): BP systolic 105–121; BP diastolic 65–81; PULSE 74–99; RESP 16–20; TEMP 36.6–36.8; O2SAT 93–96
[2022-07-05] MEDS: methylPREDNISolone SOD SUCC 125 MG VIAL 60 MG IV PUSH ×4 (00:04→17:23)
[2022-07-05] MEDS: cefTRIAXone 2 GM/NS 100 ML 2 GM/100 ML BAG IVPB (01:35)
[2022-07-05] MEDS: IPRATROPIUM BR 0.02% INH SOLN 0.5 MG/2.5 ML VIAL INHALATION ×5 (05:24→21:49)
[2022-07-05] MEDS: LEVALBUTEROL NEB 1.25 MG/3 ML 0.63 MG INHALATION ×5 (05:24→21:49)
[2022-07-05] MEDS: LEVOTHYROXINE SODIUM 150 MCG TABLET PO (06:13)
[2022-07-05] MEDS: TOPIRAMATE 100 MG TABLET 300 MG BY MOUTH (09:11)
[2022-07-05] MEDS: FUROSEMIDE INJ 40 MG/4 ML VIAL IV PUSH ×2 (09:11→17:23)
[2022-07-05] MEDS: SERTRALINE HCL 50 MG TABLET 100 MG PO (09:12)
[2022-07-05] MEDS: hydroCHLOROthiazide 25 MG TABLET PO (09:12)
[2022-07-05] MEDS: LOSARTAN POTASSIUM 100 MG TABLET PO (09:12)
[2022-07-05] MEDS: BRIMONIDINE TARTRATE 0.15% 5 ML OPHTH SOLN 1 DROP EACH EYE ×2 (09:12→20:48)
[2022-07-05] MEDS: FLUTICASONE/SALMETEROL 115-21 MCG INHALER 1 PUFF 2 PUFF INHALATION ×2 (09:18→21:50)
--- NOTE | 2022-07-05 11:34 | PM.IMPN ---
Progress Note: A&P Assessment and Plan (1) Acute respiratory failure with hypoxia: Code(s): J96.01 - Acute respiratory failure with hypoxia Status: Acute Assessment and Plan: According to patient pulse oximetry at home was 89-91% Here patient on room air and is saturating 98% ABG with pH 7.4, pCO2 44 pCO2 60 (2) Acute exacerbation of chronic obstructive pulmonary disease (COPD): Code(s): J44.1 - Chronic obstructive pulmonary disease with (acute) exacerbation Status: Acute Assessment and Plan: Scheduled breathing treatments Started on antibiotics Systemic steroids (3) KAYLA (obstructive sleep apnea): Code(s): G47.33 - Obstructive sleep apnea (adult) (pediatric) Status: Acute Assessment and Plan: CPAP at nighttime (4) Former smoker: Code(s): Z87.891 - Personal history of nicotine dependence Status: Acute Assessment and Plan: Unchanged Subjective Date/time seen: 07/05/22 11:34 No complaints currently. Exam Narrative: Patient is sitting in a stretcher Const: General: comfortable, no acute distress, well developed, alert, awake, ill appearing acutely and average body habitus Nutritional Appearance: average body habitus Orientation/consciousness: patient oriented x3 HENMT: Head: normal to inspection, normocephalic and atraumatic Ears: hearing grossly normal bilaterally Face/Nose/Sinus: normal facial exam Face and sinus: normal facial exam Eyes: General: appearance normal, both eyes and all related structures Pupils: Equal, round and reactive pupils present EOM: EOMs intact bilaterally Neck: Neck: full ROM, no lymphadenopathy and no JVD Thyroid: thyroid normal Lymphatic: no lymphadenopathy noted Resp: Effort & Inspection: normal respiratory effort, able to speak in complete sentences, Actively coughing and tachypneic Auscultation: wheezes Cardio: Jugular venous distension: no JVD Rate: regular rate Rhythm: regular rhythm Heart sounds: S1 normal heart sound present and S2 normal heart sound present : General: Yes deferred Skin: Rashes: no rashes Wounds: no wounds Neuro: General: patient oriented x3 and CN's II-XI intact bilaterally Cranial nerves: Yes CN's II-XII intact bilaterally and Yes Equal, round and reactive pupils present Cognition (Neuro): normal cognition Speech: normal speech Gait exam (Neuro): Normal gait present Motor exam (neuro): 5/5 motor strength present throughout Sensory Exam: No Sensory deficit (Neuro) Extrem: General: normal to inspection, full ROM, no joint enlargement and no pedal edema Objective Data Vital Signs Vital Signs: Vital Signs - 24 hr 07/04/22 16:28 07/04/22 18:10 07/04/22 17:45 Temperature 97.7 F Pulse Rate 97 79 Respiratory Rate 20 20 Blood Pressure 176/83 H Pulse Oximetry 96 95 90 Oxygen Delivery Room Air Room Air Oxygen Flow Rate 07/04/22 19:07 07/04/22 19:09 07/04/22 20:14 Temperature 98.1 F Pulse Rate 81 76 Respiratory Rate 20 14 Blood Pressure 128/87 141/87 H Pulse Oximetry 95 95 93 Oxygen Delivery Room Air Oxygen Flow Rate 07/04/22 21:02 07/04/22 21:52 07/04/22 22:05 Temperature Pulse Rate 74 72 Respiratory Rate 24 H 16 Blood Pressure 142/85 H Pulse Oximetry 95 97 Oxygen Delivery Nasal Cannula Oxygen Flow Rate 2 07/04/22 22:18 07/04/22 22:04 07/04/22 22:30 Temperature 98.0 F 98.1 F Pulse Rate 84 87 80 Respiratory Rate 14 16 18 Blood Pressure 132/92 H 151/87 H Pulse Oximetry 97 100 Oxygen Delivery Oxygen Flow Rate 07/05/22 04:00 07/05/22 05:26 07/05/22 06:00 Temperature 98.2 F Pulse Rate 99 74 92 Respiratory Rate 16 16 Blood Pressure 121/65 Pulse Oximetry 93 Oxygen Delivery Oxygen Flow Rate 07/05/22 09:15 07/05/22 09:15 07/05/22 09:31 Temperature Pulse Rate 88 88 84 Respiratory Rate 20 20 Blood Pressure Pulse Oximetry 94 Oxygen Delivery Room Air Oxygen Flow Rate
[2022-07-05] MEDS: AMITRIPTYLINE HCL 25 MG TABLET 50 MG PO (20:48)
[2022-07-05] MEDS: TOPIRAMATE 100 MG TABLET 200 MG BY MOUTH (20:48)
[2022-07-06] VITALS (15 sets, daily range): BP systolic 107; BP diastolic 67; PULSE 78–128; RESP 16–18; TEMP 36.2; O2SAT 86–98
[2022-07-06] MEDS: methylPREDNISolone SOD SUCC 125 MG VIAL 60 MG IV PUSH ×3 (00:30→12:38)
[2022-07-06] MEDS: cefTRIAXone 2 GM/NS 100 ML 2 GM/100 ML BAG IVPB (00:30)
[2022-07-06] MEDS: IPRATROPIUM BR 0.02% INH SOLN 0.5 MG/2.5 ML VIAL INHALATION ×3 (02:20→11:00)
[2022-07-06] MEDS: LEVALBUTEROL NEB 1.25 MG/3 ML 0.63 MG INHALATION ×3 (02:21→11:00)
[2022-07-06] MEDS: LEVOTHYROXINE SODIUM 150 MCG TABLET PO (05:52)
[2022-07-06] MEDS: FLUTICASONE/SALMETEROL 115-21 MCG INHALER 1 PUFF 2 PUFF INHALATION (07:00)
[2022-07-06] MEDS: FUROSEMIDE INJ 40 MG/4 ML VIAL IV PUSH (09:43)
[2022-07-06] MEDS: BRIMONIDINE TARTRATE 0.15% 5 ML OPHTH SOLN 1 DROP EACH EYE (09:43)
[2022-07-06] MEDS: LOSARTAN POTASSIUM 100 MG TABLET PO (09:45)
[2022-07-06] MEDS: TOPIRAMATE 100 MG TABLET 300 MG BY MOUTH (09:45)
[2022-07-06] MEDS: hydroCHLOROthiazide 25 MG TABLET PO (09:45)
[2022-07-06] MEDS: SERTRALINE HCL 50 MG TABLET 100 MG PO (09:45)
--- NOTE | 2022-07-06 10:05 | PM.CNPUL ---
Assessment and Plan Assessment and plan (1) Acute exacerbation of chronic obstructive pulmonary disease (COPD): Code(s): J44.1 - Chronic obstructive pulmonary disease with (acute) exacerbation Status: Acute Assessment and Plan: patient has a 42 pack year history of tobacco use, quit 28 years ago, marijuana smoking quit 04/14/2022 had no symptoms until after general anesthesia for a laparoscopic 3 cm incarcerated incisional hernia repair with mesh on 04/14/2022. Since that time she has had cough, dyspnea on exertion without rest shortness of breath, chest congestion with minimal phlegm production and wheezing that started 2 weeks after this. her shortness of breath and congestion improve with antibiotics (azithromycin 05/21/2022 and doxycycline 05/01/2022) and prednisone although they returned 2 days after discontinuation of these medicines. She has no evidence of hypercarbic respiratory failure on her admission ABG and her serum bicarbonate was [address] scan of the chest on 05/31/2022 such show no bullous emphysema or interstitial lung disease. The patient may have COPD and will need outpatient PFTs 1 she is closer to her baseline to confirm this diagnosis. In the meantime I agree with treating her for COPD with an acute exacerbation. Alternatively the patient may have post viral cough. 07/06 Currently the patient states she is improved. She is in no respiratory distress on room air with saturations 93%. she states her cough is 35% back to normal and that her shortness of breath is 40% back to normal. She has no wheezing on exam. She coughed once during our interview. The patient is concerned she has covid again. Repeat covert IgG and IgM study is negative. today is day 2 of ceftriaxone and azithromycin The patient tells me she is ready to go home today and she can be discharged on these Pulmonary medications: Prednisone 40 mg p.o. q.day x3 day, 30 mg p.o. q.day x3 days, 20 mg p.o. q.day x3 days, 10 mg p.o. q.day x3 days then off Levaquin 750 mg PO Q day X 8 days Symbicort 160-4.8 at 2 puffs b.i.d. Incruse ellipta 62.5 at 1 puff q.day Benzonatate 200 mg p.o. t.i.d. Rescue albuterol nebulizer 2.5 mg q.i.d. p.r.n. shortness of breath and rescue albuterol inhaler 2 puffs q.4 hours p.r.n. shortness of breath. Oxygen at rest and with ambulation per formal home O2 assessment which I have ordered. When she naps or sleeps: CPAP 13 at night with room air. Follow-up in the pulmonary clinic with her previously scheduled pulmonary appointment on 07/08/2022 at 2:[address] Orona, will sign off, call with questions (2) KAYLA (obstructive sleep apnea): Code(s): G47.33 - Obstructive sleep apnea (adult) (pediatric) Status: Acute Assessment and Plan: Patient has obstructive sleep apnea diagnosed 5 years ago and a repeat sleep study on 12/26/2021 demonstrated optimal pressures of CPAP 13. As an outpatient she struggled finding the most comfortable mask but has ended up with an over the mouth under the nose mask. Since 04/14/2022 she says she has been unable to wear the the CPAP because of the coughing at night. Patient thinks she can begin to wear her CPAP at night again. Will continue her current mask and machine and follow download as an outpatient. History of Present Illness History of Present Illness Consult date: 07/06/22 Chief complaint: Acute Hypoxic Resp Failure,Bronchospasm Narrative: 07/06/2022: This is a new pulmonary consult for hypoxic respiratory failure and bronchospasm. 66-year-old with a history of hypertension, hyperlipidemia, scoliosis, obstructive sleep apnea, chronic pain, And incisional hernia. Patient has a 42 pack year history of tobacco use, quit 28 years ago, she was exposed to secondhand smoke from her father. she smokes marijuana up until she got sick recently for chronic pain. 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
[2022-07-06 10:09] LABS: EDCOVIDSCREEN Negative (Negative)
--- NOTE | 2022-07-06 11:01 | HOMEO2EVAL ---
Evaluation was performed at [facility] Home Oxygen Evaluation RC: Home Oxygen (O2) Evaluation Start: 07/06/22 09:35 Freq: ONCE Status: Active Protocol: RPE Activity Type Activity Date Activity User E-sign Co-sign Detail Recorded Client Recorded Date Recorded By Document 07/06/22 10:45 KRAIG [email or web address] 07/06/22 11:01 KRAIG Document 07/06/22 10:50 KRAIG [email or web address] 07/06/22 11:01 KRAIG Document 07/06/22 10:52 KRAIG [email or web address] 07/06/22 11:01 KRAIG Document 07/06/22 10:53 KRAIG [email or web address] 07/06/22 11:01 KRAIG Document 07/06/22 10:59 KRAIG [email or web address] 07/06/22 11:01 KRAIG 07/06/22 07/06/22 07/06/22 10:45 10:50 10:52 Home O2 Evaluation [Oxygen] -Test Phase Resting Exercise Exercise -Oxygen Delivery Room Air Room Air Nasal Cannula -Oxygen Flow Rate (L/min) 1 [Pulse Oximetry] -Pulse Oximetry (90-100 %) 92 86 L 87 L [Pulse Rate] -Pulse Rate (60-100 beats/min) 89 128 H [Comments] -Home Oxygen Evaluation Comments [Charges] -Treatment Charges O2 Evaluation - Inpatient 07/06/22 07/06/22 10:53 10:59 Home O2 Evaluation [Oxygen] -Test Phase Exercise Resting -Oxygen Delivery Nasal Cannula Room Air -Oxygen Flow Rate (L/min) 2 [Pulse Oximetry] -Pulse Oximetry (90-100 %) 90 92 [Pulse Rate] -Pulse Rate (60-100 beats/min) 118 H 93 [Comments] -Home Oxygen Evaluation Comments Patient requires 2 liters home O2 with activity [Charges] -Treatment Charges
--- NOTE | 2022-07-06 11:04 | PCRCNOTE ---
Home O2 eval done, pt requires 2 liters with activity. Room air at rest. Pt currently has DME, [facility], , has a CPAP unit with them. I will set up home O2 with them as well. She will need a tank for transport home, i will inform [facility] to bring one in for her prior to D/C
--- NOTE | 2022-07-06 11:36 | PM.DS ---
DS: Admitting Diagnosis Discharge Date July 06, 2022 Admitting Diagnosis Hypoxic respiratory failure. Bronchospasm DS: Discharge Diagnosis Discharge Diagnosis (1) Acute respiratory failure with hypoxia: Code(s): J96.01 - Acute respiratory failure with hypoxia Status: Acute Assessment and Plan: According to patient pulse oximetry at home was 89-91% Here patient on room air and is saturating 98% ABG with pH 7.4, pCO2 44 pCO2 60 (2) Acute exacerbation of chronic obstructive pulmonary disease (COPD): Code(s): J44.1 - Chronic obstructive pulmonary disease with (acute) exacerbation Status: Acute Assessment and Plan: Scheduled breathing treatments Started on antibiotics Systemic steroids (3) KAYLA (obstructive sleep apnea): Code(s): G47.33 - Obstructive sleep apnea (adult) (pediatric) Status: Acute Assessment and Plan: CPAP at nighttime (4) Former smoker: Code(s): Z87.891 - Personal history of nicotine dependence Status: Acute Assessment and Plan: Unchanged DS: Summary Hospital Course Hospital Course: 66-year-old female admitted for hypoxic respiratory failure likely secondary to bronchitis bronchospasm. Pulmonary was consulted made some recommendations on inhalers and antibiotics unknown prednisone to use. Patient will be sent home on new pulmonary regimen. Pulmonary next week, patient some point will also need outpatient PFTs. Time Spent with Patient Time attestation: Total time spent providing and/or coordinating discharge services: Exam Narrative: Patient is sitting in a stretcher Const: General: comfortable, no acute distress, well developed, alert, awake, ill appearing acutely and average body habitus Nutritional Appearance: average body habitus Orientation/consciousness: patient oriented x3 HENMT: Head: normal to inspection, normocephalic and atraumatic Ears: hearing grossly normal bilaterally Face/Nose/Sinus: normal facial exam Face and sinus: normal facial exam Eyes: General: appearance normal, both eyes and all related structures Pupils: Equal, round and reactive pupils present EOM: EOMs intact bilaterally Neck: Neck: full ROM, no lymphadenopathy and no JVD Thyroid: thyroid normal Lymphatic: no lymphadenopathy noted Resp: Effort & Inspection: normal respiratory effort, able to speak in complete sentences, Actively coughing and tachypneic Auscultation: wheezes Cardio: Jugular venous distension: no JVD Rate: regular rate Rhythm: regular rhythm Heart sounds: S1 normal heart sound present and S2 normal heart sound present : General: Yes deferred Skin: Rashes: no rashes Wounds: no wounds Neuro: General: patient oriented x3 and CN's II-XI intact bilaterally Cranial nerves: Yes CN's II-XII intact bilaterally and Yes Equal, round and reactive pupils present Cognition (Neuro): normal cognition Speech: normal speech Gait exam (Neuro): Normal gait present Motor exam (neuro): 5/5 motor strength present throughout Sensory Exam: No Sensory deficit (Neuro) Extrem: General: normal to inspection, full ROM, no joint enlargement and no pedal edema DS: Data Data Completed and Pending Labs on day of discharge: Labs from last 24 hours 07/06/22 09:41 SARS-CoV-2 IgG/IgM Ag?Rapid Negative Discharge Plan Discharge Attending physician on discharge: Marcelino Orona Consulting providers: Marcelino Richards Discharging Clinician: Marcelino Orona Patient Disposition: Home, Self-Care Activity: no preference Diet: as tolerated Patient Instructions: Antibiotic Form Stand Alone Forms: General Discharge Information Follow-up/Referrals: Marcelino Richards MD [Physician] - Discharge Medications: New benzonatate 200 mg capsule 200 mg PO TID PRN (Reason: cough) Qty: 90 0RF prednisone 10 mg tablet 10 mg PO DIRECTED Qty: 30 0RF Rx Instructions: see taper instructions 40 m
== END 2022-07-06 12:55 | disposition home or self-care (01) | DRG 189 ==
LOC: ANHED 21:26 → ANH3MEDSUR 07-06 07:50
PROVIDERS: Internal Medicine Pulmonary Disease; Admitting Provider Internal Medicine; Emergency Provider Emergency Medicine; PCP Family Medicine; Visit Provider Chiropractor
DX: J96.01 Acute respiratory failure with hypoxia (principal); J44.1 Chronic obstructive pulmonary disease with (acute) exacerbation; J44.0 Chronic obstructive pulmonary disease with (acute) lower respiratory infection; J20.9 Acute bronchitis, unspecified; G47.33 Obstructive sleep apnea (adult) (pediatric); Z20.822 Contact with and (suspected) exposure to COVID-19; G89.4 Chronic pain syndrome; E78.5 Hyperlipidemia, unspecified; I10 Essential (primary) hypertension; K58.9 Irritable bowel syndrome, unspecified; M81.0 Age-related osteoporosis without current pathological fracture; M41.9 Scoliosis, unspecified; E07.9 Disorder of thyroid, unspecified; Z87.891 Personal history of nicotine dependence; Z79.82 Long term (current) use of aspirin; Z86.16 Personal history of COVID-19
CPT/HCPCS: 36415; 36600; 71046; 80053; 82805; 85025; 87015; 87070; 87102; 87106; 87107; 87116; 87205; 87206; 87426; 93005; 94618; 94640; 99285; A9270; C9803; J0456; J0696; J1940; J2930

== ENCOUNTER 2022-07-21 08:27 | Outpatient (CLI) | payer MEDICARE, BC, SELFPAY ==
--- NOTE | 2022-08-14 20:13 | WPDSLEEPSTUD ---
Sleep Study Date of Study: 07/21/22 Ordering Provider: LOREN Lebron Interpreting Physician: Meseret Garcia MD Sleep Study Type: Split Polysomnogram Height: 1.68 m Weight: 97.522 kg Body Mass Index: 34.7 Neck Circumference (inches): 16 [place]: 3 Reason for Sleep Study Severe obstructive sleep apnea; * 02/09/2019 split night study; AHI 43.5.? She was started on CPAP 5 cm H2O and titrated to CPAP 9 cm H2O with EPR of 1 treatment emergent central apneas.? It was recommended that she have a CPAP/BPAP titration.? Due to her claustrophobia, she had difficulty tolerating the CPAP.? Since her last sleep study, her insurance has changed to Medicare.? She will have to re-qualify for PAP therapy. * 12/04/2021 - split night study; AHI 71.5, central AHI 1.3, desaturation to 79% with Nico-Rodrigues respirations present, final pressure CPAP 13 cm however she has not worn this for hte last several months due to excessive coughing. * 02/23/2022 echo = normal EF 60-65%, grade I diastolic dysfunction, no pulmonary hypertension. Sleep History Angelica Cowan is a 66-year-old woman with O2 use with exertion, severe obstructive sleep apnea and Nico-Rodrigues respirations, most recent study was a split night 12/04/2021, optimal pressure was CPAP 13 on room air however she quit using CPAP due to excessive coughing after a laparoscopic incarcerated hernia repair04/14/2022 which resulted in complications. She was admitted to the hospital 07/04 - 07/06/22 for shortness of breath and cough. She was treated for a possible COPD exacerbation with antibiotics and prednisone. Her significant co-morbidities include hypertension, hypothyroidism, migraines, hyperlipidemia, irritable bowel syndrome, osteoporosis, chronic pain syndrome, history of tobacco use. The patient occasionally awakens from sleep short of breath.? She frequently awakens at night with heartburn, belching or cough.? She frequently snores.? She constantly has trouble sleeping when she has a cold.? She occasionally wakes up gasping for air throughout the night.? She frequently has breathing problems at night observed by herself or others.? She rarely sweats excessively at night.? He occasionally has heart palpitations or irregular heartbeats during the night.? She occasionally falls asleep during the day but never while driving.? She rarely experiences loss of muscle tone when extremely emotional.? She occasionally has trouble at school work due to sleepiness.? She occasionally experiences vivid dreamlike scenes upon awakening or asleep.? She frequently feels afraid of going to sleep.? She rarely has nightmares.? She frequently remembers her dreams.? She rarely has thoughts racing through her mind.? He occasionally feels sad or depressed.? She occasionally has anxiety.? She occasionally has muscular tension.? She occasionally notices parts of her body jerk.? She occasionally kicks during the night.? She occasionally has crawling and aching feelings in her legs as well as leg pain during the night.? She occasionally grinds her teeth during sleep but rarely awakens with morning type pain.? He is occasionally bothered by pain during the day and occasionally awakened by pain during the night.? She frequently wakes up feeling stiff in the morning.? She occasionally wakes up with sore achy muscles.? She frequently wakes up with pain in the neck, spine and other joints.? She goes to bed at 4:00 a.m. on weekdays and between 5-6 a.m. on the weekends.? It takes her 2 hours to fall asleep.? She wakes throughout the night to urinate.? She wakes up at 3:00 p.m. on weekdays and at 6:00 p.m. weekends.? She typically gets 6 hours of sleep per night.? She does not stay in bed after waking.? She will drink caffeinated beverages 2 hours of bedtime.? She does not engage in physical exercise before bedtime.? She will watch television before falling asleep.? He denies taking naps in the afternoon or the evening.? She drinks 4 caffeinated beverages p
[2022-08-15 17:25] VITALS: BMI 34.7
--- NOTE | 2022-10-29 15:50 | SLEEP ---
new calls [phone]
== END 2022-07-22 06:18 | disposition home or self-care (01) ==
LOC: ANHCSM 08:28
PROVIDERS: PCP Family Medicine; Visit Provider Physician Assistant
DX: G47.10 Hypersomnia, unspecified (principal)
CPT/HCPCS: 95811

== ENCOUNTER 2022-10-01 07:00 | Outpatient (CLI) | payer MEDICARE, BC, SELFPAY ==
--- NOTE | 2022-10-26 11:49 | WPDSLEEPSTUD ---
Sleep Study Date of Study: 10/01/22 Ordering Provider: Marcelino Richards MD Interpreting Physician: Dayana Good, Sleep Study Type: BiPAP Titration Height: 1.73 m Weight: 98.883 kg Body Mass Index: 33.1 Neck Circumference (inches): 16 [place]: 3 Reason for Sleep Study Severe obstructive sleep apnea; * 02/09/2019 split night study; AHI 43.5.? She was started on CPAP 5 cm H2O and titrated to CPAP 9 cm H2O with EPR of 1 treatment emergent central apneas.? It was recommended that she have a CPAP/BPAP titration.? Due to her claustrophobia, she had difficulty tolerating the CPAP.? Since her last sleep study, her insurance has changed to Medicare.? She will have to re-qualify for PAP therapy. *? 12/04/2021 - split night study; AHI 71.5, central AHI 1.3, desaturation to 79% with Nico-Rodrigues respirations present, final pressure CPAP 13 cm however she has not worn this for the last several months due to excessive coughing.? * 02/23/2022 echo = normal EF 60-65%, grade I diastolic dysfunction, no pulmonary hypertension. *07/01/2022 split night study; AHI of 18 with desaturation to 83% with treatment emergent central apnea during the titration. No optimal pressure is identified. The patient has Nico-Rodrigues respirations.??She has REM without atonia.? Sleep History Angelica Cowan is a 67-year-old woman with O2 use with exertion, severe obstructive sleep apnea and Nico-Rodrigues respirations, most recent study was a split night 12/04/2021, optimal pressure was CPAP 13 on room air however she quit using CPAP due to excessive coughing after a laparoscopic incarcerated hernia repair04/14/2022? which resulted in complications. She was admitted to the hospital 07/04 - 07/06/22 for shortness of breath and cough.? She was treated for a possible COPD exacerbation with antibiotics and prednisone.? Her significant co-morbidities include hypertension, hypothyroidism, migraines, hyperlipidemia, irritable bowel syndrome, osteoporosis, chronic pain syndrome, history of tobacco use. ? The patient occasionally awakens from sleep short of breath.? She frequently awakens at night with heartburn, belching or cough.? She frequently snores.? She constantly has trouble sleeping when she has a cold.? She occasionally wakes up gasping for air throughout the night.? She frequently has breathing problems at night observed by herself or others.? She rarely sweats excessively at night.? He occasionally has heart palpitations or irregular heartbeats during the night.? She occasionally falls asleep during the day but never while driving.? She rarely experiences loss of muscle tone when extremely emotional.? She occasionally has trouble at school work due to sleepiness.? She occasionally experiences vivid dreamlike scenes upon awakening or asleep.? She frequently feels afraid of going to sleep.? She rarely has nightmares.? She frequently remembers her dreams.? She rarely has thoughts racing through her mind.? He occasionally feels sad or depressed.? She occasionally has anxiety.? She occasionally has muscular tension.? She occasionally notices parts of her body jerk.? She occasionally kicks during the night.? She occasionally has crawling and aching feelings in her legs as well as leg pain during the night.? She occasionally grinds her teeth during sleep but rarely awakens with morning type pain.? He is occasionally bothered by pain during the day and occasionally awakened by pain during the night.? She frequently wakes up feeling stiff in the morning.? She occasionally wakes up with sore achy muscles.? She frequently wakes up with pain in the neck, spine and other joints.? She goes to bed at 4:00 a.m. on weekdays and between 5-6 a.m. on the weekends.? It takes her 2 hours to fall asleep.? She wakes throughout the night to urinate.? She wakes up at 3:00 p.m. on weekdays and at 6:00 p.m. weekends.? She typically gets 6 hours of sleep per night.? She does not stay in bed after waking.? She will drink caffeinated bevera
[2022-10-26 11:50] VITALS: BMI 33.1
== END 2022-10-02 06:36 | disposition home or self-care (01) ==
PROVIDERS: PCP Family Medicine; Visit Provider Internal Medicine Pulmonary Disease
DX: G47.39 Other sleep apnea (principal)
CPT/HCPCS: 95811

== ENCOUNTER 2022-10-06 03:10 | Day surgery (SDC) | payer MEDICARE, BC, SELFPAY ==
[2022-09-25 14:01] VITALS: BMI 33.8
[2022-10-06 07:56] VITALS: BP 124/64; PULSE 95; RESP 20; TEMP 36.8; O2SAT 99
[2022-10-06] MEDS: LACTATED RINGERS 1,000 ML 150 ML IV CONT (08:07)
[2022-10-06 08:08] LABS: Glucose Point of Care 149 mg/dl (65-105)
--- NOTE | 2022-10-06 08:31 | PM.HPGS ---
History of Present Illness History of Present Illness Consent: Risks, benefits, and alternatives have been discussed and questions answered. Patient agrees to proceed with procedure. Chief complaint: IBS-D Narrative: Angelica Cowan is a 67 year old female Referred for colonoscopy. No significant records accompany patient. Patient reports that her she in the past has been told she had irritable bowel syndrome and a tendency towards diarrhea. She is on no specific therapy. Previous colonoscopy in our records reveal essentially unremarkable exam in 2018 at that time she had internal hemorrhoids and diverticulosis. Patient reports that hemorrhoids will occasionally give her difficulty. Typically with palpation of of bump but her anus. Family history is noncontributory. Review of Systems Review of Systems: Review of systems noncontributory. [facility] Past Medical History Medical History (Updated 10/06/22 @ 08:33 by Armaan Brito MD) Bulging discs Chronic pain syndrome Gestational diabetes Hx of migraines Hyperlipidemia Hypertension IBS (irritable bowel syndrome) KAYLA (obstructive sleep apnea) Osteoporosis Scoliosis Thyroid disorder Surgical History Surgical History H/O arthroscopic knee surgery H/O hernia repair (2) History of incisional hernia repair Laparoscopic 3cm incarcerated incisional hernia repair with mesh, Da Sudha assisted 04/14/22. Family History Family History Father Family history of cardiovascular disease Diabetes mellitus Hypertension Cerebrovascular accident Mother Family history of cardiovascular disease Diabetes mellitus Hypertension Cerebrovascular accident Sibling Family history of malignant neoplasm of ovary Family history of cardiovascular disease Diabetes mellitus Depression Hypertension Thyroid disorder Cerebrovascular accident Grandparent Diabetes mellitus Hypertension Son Depression Daughter Depression Hypertension Other Sleep apnea Social History Social History Social History: Caffeine-coffee/tea Smoking packs per day: 2.5 Smoking cigarettes per day: 50.0 Years smoked: 20 Smoking pack-years: 50.00 Smoking status: Never smoker Tobacco type: cigarettes Second hand tobacco smoke exposure: No Smoking end date: 09/01/96 Alcohol intake: never Alcohol use details: occasionally Substance use: never Substance use type: does not use Other substance usage details: twice a week for pain in shoulder. Last use: 04/14/2022 Lack of Transportation: No Lack of Food: Never True Current Housing: I Have Housing Concerned About Future Housing: No Difficulty Paying Gas/Electric Bills: No Difficulty Paying for Meds: No Currently Unemployed: No Education: Associate Degree Difficulty w/ Childcare or Family Care: No Living arrangements: alone Spiritual care concerns: No Meds Home Medications and Allergies Home Medications Medication Instructions Recorded Confirmed Type brimonidine 0.15 % eye drops 1 drp EACH EYE Q12H 12/10/20 09/25/22 History losartan 100 mg tablet 100 mg PO DAILY #90 tabs 11/30/21 09/25/22 Rx sertraline 100 mg tablet 100 mg PO DAILY #90 tabs 02/16/22 09/25/22 Rx cholecalciferol (vitamin D3) 250 125 mcg PO DAILY 03/05/22 09/25/22 History mcg (10,000 unit) tablet biotin 10,000 mcg disintegrating 10,000 mcg PO DAILY 06/15/22 09/25/22 History tablet multivitamin 1 tablet PO DAILY 06/15/22 09/25/22 History hydrochlorothiazide 25 mg tablet 25 mg PO DAILY #90 tabs 06/22/22 09/25/22 Rx levothyroxine 150 mcg tablet 150 mcg PO DAILY #90 tabs 06/30/22 09/25/22 Rx budesonide-formoterol HFA 160 2 puff inhalation Q12H #10.2 grams 07/07/22 09/25/22 Rx mcg-4.5 mcg/actuation aerosol inhaler (Symbicort) aspirin 81 mg ta
--- NOTE | 2022-10-06 08:38 | WPDANESEPPF ---
Anes - Initial Pre Proc Eval Procedure: Operation Date: 10/06/22 09:00 Proposed Procedures p Colonoscopy - Armaan Brito MD Date/Time: 10/06/22 08:38 Surgeon: Armaan Brito MD Pre Op Diagnosis: IBS-D Patient Data Age: 67 Gender: F Height: 1.7 m Weight: 96 kg Last Vital Signs Temp 36.8 C 10/06/22 07:56 Pulse 95 10/06/22 07:56 Resp 20 10/06/22 07:56 BP 124/64 10/06/22 07:56 Pulse Ox 99 10/06/22 07:56 O2 Del Method Room Air 10/06/22 07:56 Allergies Allergy/AdvReac Type Severity Reaction Status Date / Time No Known Allergies Allergy Verified 10/06/22 07:53 Home Medications Medication Instructions Recorded Confirmed Type brimonidine 0.15 % eye drops 1 drp EACH EYE Q12H 12/10/20 09/25/22 History losartan 100 mg tablet 100 mg PO DAILY #90 tabs 11/30/21 09/25/22 Rx sertraline 100 mg tablet 100 mg PO DAILY #90 tabs 02/16/22 09/25/22 Rx cholecalciferol (vitamin D3) 250 125 mcg PO DAILY 03/05/22 09/25/22 History mcg (10,000 unit) tablet biotin 10,000 mcg disintegrating 10,000 mcg PO DAILY 06/15/22 09/25/22 History tablet multivitamin 1 tablet PO DAILY 06/15/22 09/25/22 History hydrochlorothiazide 25 mg tablet 25 mg PO DAILY #90 tabs 06/22/22 09/25/22 Rx levothyroxine 150 mcg tablet 150 mcg PO DAILY #90 tabs 06/30/22 09/25/22 Rx budesonide-formoterol HFA 160 2 puff inhalation Q12H #10.2 grams 07/07/22 09/25/22 Rx mcg-4.5 mcg/actuation aerosol inhaler (Symbicort) aspirin 81 mg tablet,delayed 81 mg PO DAILY 07/08/22 09/25/22 History release (Adult Aspirin Regimen) lysine 500 mg tablet (L-Lysine) 1,000 mg PO DAILY 07/08/22 09/25/22 History magnesium oxide 500 mg capsule 500 mg PO DAILY 07/08/22 09/25/22 History selenium 200 mcg tablet 200 mcg PO BID 07/08/22 09/25/22 History turmeric root extract 500 mg tablet 500 mg PO DAILY 07/08/22 09/25/22 History vitamin E (dl, acetate) 180 mg 180 mg PO DAILY 07/08/22 09/25/22 History (400 unit) capsule vitamin K2 100 mcg capsule 200 mcg PO DAILY 07/08/22 09/25/22 History guaifenesin 600 mg tablet, 600 mg PO BID #60 tabs 07/20/22 09/25/22 Rx extended release 12 hr amitriptyline 50 mg tablet See Rx Instructions .Route 07/27/22 09/25/22 Rx .COMPLEX #90 tabs erenumab-aooe 70 mg/mL 70 mg subcut MONTHLY #1 mL 07/31/22 09/25/22 Rx subcutaneous auto-injector (Aimovig Autoinjector) topiramate 100 mg tablet See Rx Instructions .Route 07/31/22 09/25/22 Rx .COMPLEX #120 tabs albuterol sulfate 90 mcg/actuation 1 - 2 inh inhalation Q4-6H PRN 08/07/22 09/25/22 Rx aerosol inhaler shortness of breath or wheezing #8.5 grams zolmitriptan 5 mg tablet See Rx Instructions .Route 08/27/22 09/25/22 Rx .COMPLEX #36 tabs umeclidinium 62.5 mcg/actuation 1 inh inhalation DAILY #30 ea 09/22/22 09/25/22 Rx blister powder for inhalation (Incruse Ellipta) ipratropium bromide 17 2 puff inhalation QID #12.9 grams 09/23/22 09/25/22 Rx mcg/actuation HFA aerosol inhaler (Atrovent HFA) ipratropium 0.5 mg-albuterol 3 mg 3 ml inhalation TID PRN shortness 09/25/22 09/25/22 History (2.5 mg base)/3 mL nebulization of breath or wheezing soln diphenhydramine HCl 50 mg tablet 50 mg PO HS 10/05/22 10/05/22 History ezetimibe 10 mg tablet 10 mg PO DAILY 10/05/22 10/05/22 History metformin 500 mg tablet,extended 500 mg PO DAILY 10/05/22 10/05/22 History release 24 hr Laboratory Tests 10/06/22 08:05 POC Capillary Glucose 149 H mg/dl (65-105) Patient hx anesthesia problems: none Family hx anesthesia problems: none Results Review: All pre-operative results and documents have been reviewed as part of the pre-operative evaluation. [facility] Past Medical History Medical History Bulging discs Chronic pain syndrome Gestational diabetes Hx of migraines Hyperlipidemia Hypertension IBS (irritable bowel syndrome) KAYLA (obstructive sleep apnea) Osteoporosis
--- NOTE | 2022-10-06 09:09 | SUR.PREOP ---
0900 c/o migraine, anesthesia ok for home med po with sip of water per Dr. Velázquez zolmitriptan 5mg taken
[2022-10-06] MEDS: SIMETHICONE ORAL SUSPENSION 20 MG/0.3 ML 30 ML BOTTLE 0.6 ML IRRIGATION (09:40)
[2022-10-06 09:50] VITALS: BP 115/75; PULSE 74; RESP 18; O2SAT 98
[2022-10-06 10:00] VITALS: BP 124/83; PULSE 73; RESP 18; O2SAT 99
[2022-10-06 10:10] VITALS: BP 122/65; PULSE 70; RESP 16; O2SAT 99
== END 2022-10-06 10:17 | disposition home or self-care (01) ==
PROVIDERS: PCP Family Medicine Sports Medicine; Visit Provider Internal Medicine Gastroenterology
PROC: 0DJD8ZZ Inspection of Lower Intestinal Tract, Via Natural or Artificial Opening Endoscopic (ICD-10-PCS; CPT 45378; principal; 2022-10-06 09:00)
DX: K58.9 Irritable bowel syndrome, unspecified (principal); K64.8 Other hemorrhoids; K64.4 Residual hemorrhoidal skin tags; K57.30 Diverticulosis of large intestine without perforation or abscess without bleeding; I10 Essential (primary) hypertension; E78.5 Hyperlipidemia, unspecified; G47.33 Obstructive sleep apnea (adult) (pediatric); M81.0 Age-related osteoporosis without current pathological fracture; E07.9 Disorder of thyroid, unspecified; Z87.891 Personal history of nicotine dependence; E66.9 Obesity, unspecified; Z68.33 Body mass index [BMI] 33.0-33.9, adult; Z79.51 Long term (current) use of inhaled steroids; Z79.82 Long term (current) use of aspirin
CPT/HCPCS: 45378; 82948; J2704; J7120

== ENCOUNTER 2022-10-16 12:35 | Outpatient (CLI) | payer MEDICARE, BC, SELFPAY ==
--- NOTE | 2022-10-16 17:19 | WPDPFTINT ---
PFT Procedure Performed PFT Procedure Performed Spirometry with Pre/Post Bronchodilator Plethysmography (Lung Vol) Diffusing Cap (DLCO) Flow Vol Loop PFT Interpretation This is a pulmonary function test with pre and post-bronchodilator spirometry, plethysmography and diffusing capacity. The test was performed and results interpreted in accordance with the 2019 and 2005 ATS/ERS Task Force guidelines respectively using the Global Lung Function Initiative-2012 reference equations. Patient demonstrated good effort and cooperation. Reproducibility criteria were met. The quality of the pre bronchodilator spirometry maneuver was Grade A and post bronchodilator spirometry maneuver was Grade A. Findings: Spirometry: The contour the inspiratory and expiratory flow tracing are normal. The pre bronchodilator FVC is 3.03 L, 90% predicted. The pre bronchodilator FEV1 is 2.09 L, 80% predicted. The pre bronchodilator FEV1: FVC ratio 69%. The post bronchodilator FVC is 3.31 L, representing a 9% increase. The post bronchodilator FEV1 is 2.39 L, representing a 14% increase. The post bronchodilator FEV1: FVC ratio was 72%. Plethysmography: The total lung capacity is 5.42 L, 98% predicted. The functional residual capacity is 2.79 L, 88% predicted. The residual volume is 2.20 L, sats 97% predicted. Diffusing capacity: The diffusing capacity unadjusted for hemoglobin and carboxyhemoglobin is 19.8, 88% predicted. The diffusing capacity adjusted for alveolar volume is 4.14, 98% predicted. Impression: The spirometry is normal without evidence of an obstructive abnormality. There is significant improvement after inhaling a single dose of albuterol. The lung volumes are normal. The diffusing capacity is normal. There are no prior studies for comparison
== END 2022-10-16 12:36 | disposition home or self-care (01) ==
LOC: ANHPFT 12:37
PROVIDERS: PCP Family Medicine Sports Medicine; Visit Provider Internal Medicine Pulmonary Disease
DX: R06.00 Dyspnea, unspecified (principal)
CPT/HCPCS: 94060; 94726; 94729

== ENCOUNTER 2022-11-03 15:12 | Outpatient (CLI) | payer MEDICARE, BC, SELFPAY ==
[2022-11-03 17:56] LABS: Iron 128 ug/dL (37-170)
[2022-11-03 18:08] LABS: Percent Iron Saturation 39 % (20-50)
== END 2022-11-03 15:13 | disposition home or self-care (01) ==
PROVIDERS: PCP Family Medicine; Visit Provider Internal Medicine Pulmonary Disease
DX: D64.9 Anemia, unspecified (principal)
CPT/HCPCS: 36415; 82728; 83540; 83550

== ENCOUNTER 2022-11-23 14:51 | Outpatient (CLI) | payer MEDICARE, BC, SELFPAY ==
--- NOTE | ~2022-11-23 | XR_ITS ---
EXAMINATION: XR chest 2V DATE: 11/23/2022 15:10 INDICATION: Shortness of breath. Cough. TECHNIQUE: Frontal and lateral views of the chest were obtained. COMPARISON: Chest 2 views 07/04/2022 FINDINGS: There is no pneumonia, pleural effusion, or pneumothorax. The heart size is normal. There a re surgical clips in the abdomen. IMPRESSION: 1. No acute cardiopulmonary disease. Reviewed, dictated and finalized at location E.
== END 2022-11-23 14:52 | disposition home or self-care (01) ==
PROVIDERS: PCP Family Medicine; Visit Provider Internal Medicine Pulmonary Disease
DX: J44.1 Chronic obstructive pulmonary disease with (acute) exacerbation (principal)
CPT/HCPCS: 71046

== ENCOUNTER 2022-12-09 15:24 | Emergency (ER) | payer MEDICARE, BC, SELFPAY ==
--- NOTE | ~2022-12-09 | CT_ITS ---
EXAMINATION: CTA chest PE protocol DATE: 12/09/2022 17:36 INDICATION: Cough and shortness of breath TECHNIQUE: Computed tomography angiography (CTA) of the chest was performed with 100 mL Omnipaque-350 intravenous contrast timed to evaluate the pulmonary arteries. Coronal maximum intensity projection 3D-reconstructions were created by the technologist. The dose-length product (DLP) was 657.71 mGy-cm. Automated exposure control and iterative reconstruction technique were employed. COMPARISON: 05/31/2022 FINDINGS: The pulmonary arteries are well-opacified. No pulmonary embolism is identified. There is mi ld dependent atelectasis. Lungs are free of focal airspace opacities. No pleural effusion or pneumoth orax. No pathologically enlarged thoracic lymph nodes are identified. The heart size is normal. There is calcified coronary artery atherosclerosis. A small sliding hiatal hernia is noted. The gallbladde r is surgically absent. There is severe thoracic spondylosis. IMPRESSION: 1. No pulmonary embolus identified. 2. Mild atelectasis. Reviewed, dictated and finalized at location F.
--- NOTE | ~2022-12-09 | XR_ITS ---
EXAMINATION: XR chest 1V portable DATE: 12/09/2022 17:02 INDICATION: Cough. Shortness of breath. TECHNIQUE: A single frontal view of the chest was obtained. COMPARISON: Chest 2 views 11/23/22 FINDINGS: There is mild atelectasis at left lung base. No pleural effusion or pneumothorax. The heart size is normal. IMPRESSION: 1. Mild atelectasis at left lung base. Reviewed, dictated and finalized at location A.
[2022-12-09 15:41] VITALS: BP 136/92; PULSE 89; RESP 16; TEMP 36.8; O2SAT 97
[2022-12-09 16:33] VITALS: BP 128/90; PULSE 75; PULSE 78; RESP 15; O2SAT 97
[2022-12-09 16:34] VITALS: O2SAT 97
--- NOTE | 2022-12-09 16:36 | ECG_ITS ---
Measurements Intervals [place] Rate: 74 P: 50 MD: 179 QRS: -1 QRSD: 102 T: 23 QT: 390 QTc: 433 Interpretive Statements SINUS RHYTHM BORDERLINE R WAVE PROGRESSION, ANTERIOR LEADS CONSIDER INFERIOR INFARCT, AGE INDETERMINATE BASELINE WANDER- I, II, III, AVF, V1, V4 ABNORMAL ECG COMPARED TO ECG 07/04/2022 16:41:20 NO SIGNIFICANT CHANGES Electronically Signed On 12-09-2022 19:42:55 CDT by Mauro Cardona D.O.
[2022-12-09 16:43] LABS: Basophils Absolute Auto 0.1 K/mm3 (0.0-0.1); Basophils Percent Auto 1.1 % (0.2-1.2); Eosinophils Absolute Auto 0.7 K/mm3 (0-0.3); Eosinophils Percent Auto 8.6 % (0-4.4); Hemoglobin 14.4 g/dL (12.0-15.0); Immature Granulocyte Absolute 0.02 K/mm3 (0.00-0.031); Immature Granulocyte Percent A 0.2 % (0-0.5); Lymphocytes Absolute Auto 1.74 K/mm3 (0.9-3.2); Lymphocytes Percent Auto 21.2 % (18.3-44.2); Mean Corpuscular HGB Conc 32.7 g/dl (32-36); Mean Corpuscular Hemoglobin 30.6 pg (26-34); Mean Corpuscular Volume 93.4 fl (80-100); Mean Platelet Volume 9.5 fl (7.4-10.4); Monocytes Absolute Auto 0.5 K/mm3 (0.1-0.6); Monocytes Percent Auto 5.6 % (2.6-8.5); Neutrophils Absolute Auto 5.2 K/mm3 (1.3-6.7); Neutrophils Percent Auto 63.3 % (45.5-73.1); Platelet Count Result 307 k/mm3 (150-375); Red Blood Count 4.71 M/mm3 (4.2-5.4); Red Cell Distribution Width 13.9 % (11.5-14.5); White Blood Count 8.2 K/mm3 (4.5-10.0)
[2022-12-09 16:54] LABS: Alanine Aminotransferase 13 U/L (6-35); Albumin Level 4.5 g/dL (3.5-5.1); Alkaline Phosphatase 62 U/L (38-126); Anion Gap 9 mmol/L (8-16); Aspartate Amino Transferase 29 U/L (14-36); Bilirubin,Total 0.6 mg/dL (0.2-1.3); Blood Urea Nitrogen 25 mg/dL (7-17); Calcium 9.7 mg/dL (8.4-10.2); Carbon Dioxide 26 mmol/L (22-30); Chloride 102 mmol/L (98-107); Estimated CRCL calculation 56 ml/min; Estimated Glomerular Filt Rate 50; Glucose 106 mg/dL (65-110); Potassium 3.8 mmol/L (3.4-5.0); Sodium 137 mmol/L (137-145)
--- NOTE | 2022-12-09 17:20 | ED.GENADULT ---
HPI - General Adult General Chief complaint: Shortness of Breath/Dyspnea Stated complaint: shortness of breath Time Seen by Provider: 12/09/22 16:36 History of Present Illness HPI narrative: 67-year-old female presented the emergency department for evaluation of persistent wheezing cough and shortness of breath since March. Patient has been following up with Dr. Richards for pulmonology. Patient was seen in the office today and was deferred to the emergency department for further work-up. Related Data Home Medications Medication Instructions Recorded Confirmed brimonidine 0.15 % eye drops 1 drp EACH EYE Q12H 12/10/20 09/25/22 cholecalciferol (vitamin D3) 250 125 mcg PO DAILY 03/05/22 09/25/22 mcg (10,000 unit) tablet biotin 10,000 mcg disintegrating 10,000 mcg PO DAILY 06/15/22 09/25/22 tablet multivitamin 1 tablet PO DAILY 06/15/22 09/25/22 aspirin 81 mg tablet,delayed 81 mg PO DAILY 07/08/22 09/25/22 release (Adult Aspirin Regimen) lysine 500 mg tablet (L-Lysine) 1,000 mg PO DAILY 07/08/22 09/25/22 magnesium oxide 500 mg capsule 500 mg PO DAILY 07/08/22 09/25/22 selenium 200 mcg tablet 200 mcg PO BID 07/08/22 09/25/22 turmeric root extract 500 mg tablet 500 mg PO DAILY 07/08/22 09/25/22 vitamin E (dl, acetate) 180 mg 180 mg PO DAILY 07/08/22 09/25/22 (400 unit) capsule vitamin K2 100 mcg capsule 200 mcg PO DAILY 07/08/22 09/25/22 diphenhydramine HCl 50 mg tablet 50 mg PO HS 10/05/22 10/05/22 ezetimibe 10 mg tablet 10 mg PO DAILY 10/05/22 10/05/22 metformin 500 mg tablet,extended 500 mg PO DAILY 10/05/22 10/05/22 release 24 hr Allergies Allergy/AdvReac Type Severity Reaction Status Date / Time No Known Allergies Allergy Verified 12/09/22 16:35 Review of Systems Review of Systems: All systems reviewed & are unremarkable except as noted in HPI and below PMFSH Past Medical History Medical History Bulging discs Chronic pain syndrome Gestational diabetes Hx of migraines Hyperlipidemia Hypertension IBS (irritable bowel syndrome) KAYLA (obstructive sleep apnea) Osteoporosis Scoliosis Thyroid disorder Surgical History Surgical History H/O arthroscopic knee surgery H/O hernia repair (2) History of incisional hernia repair Laparoscopic 3cm incarcerated incisional hernia repair with mesh, Da Sudha assisted 04/14/22. Family History Family History Father Family history of cardiovascular disease Diabetes mellitus Hypertension Cerebrovascular accident Mother Family history of cardiovascular disease Diabetes mellitus Hypertension Cerebrovascular accident Sibling Family history of malignant neoplasm of ovary Family history of cardiovascular disease Diabetes mellitus Depression Hypertension Thyroid disorder Cerebrovascular accident Grandparent Diabetes mellitus Hypertension Son Depression Daughter Depression Hypertension Other Sleep apnea Social History Social History Social History: Caffeine-coffee/tea Smoking packs per day: 2.5 Smoking cigarettes per day: 50.0 Years smoked: 20 Smoking pack-years: 50.00 Smoking status: Former smoker Tobacco type: cigarettes Second hand tobacco smoke exposure: No Smoking end date: 09/01/96 Alcohol intake: never Alcohol use details: occasionally Substance use: never Substance use type: does not use Other substance usage details: twice a week for pain in shoulder. Last use: 04/14/2022 Lack of Transportation: No Lack of Food: Never True Current Housing: I Have Housing Concerned About Future Housing: No Difficulty Paying Gas/Electric Bills: No Difficulty Paying for Meds: No Currently Unemployed: No Education: Associate Degree Difficulty w/ Childcare or Family Care
--- NOTE | 2022-12-09 17:25 | PC.NURSE ---
Pt to XRAY via stretcher at this time.
[2022-12-09 17:43] VITALS: BP 131/91; PULSE 74; RESP 22; O2SAT 97
[2022-12-09 19:03] VITALS: BP 138/92; PULSE 72; RESP 19; O2SAT 93
== END 2022-12-09 19:04 | disposition home or self-care (01) ==
PROVIDERS: Emergency Medicine; Emergency Provider Emergency Medicine; PCP Family Medicine
DX: R06.2 Wheezing (principal); I10 Essential (primary) hypertension; E78.5 Hyperlipidemia, unspecified; E07.9 Disorder of thyroid, unspecified; K58.9 Irritable bowel syndrome, unspecified; G47.33 Obstructive sleep apnea (adult) (pediatric); G89.4 Chronic pain syndrome; M81.0 Age-related osteoporosis without current pathological fracture; Z87.891 Personal history of nicotine dependence; R94.31 Abnormal electrocardiogram [ECG] [EKG]
CPT/HCPCS: 36415; 71045; 71275; 80053; 85025; 93005; 99284; Q9967

== ENCOUNTER 2023-01-27 13:45 | Outpatient (CLI) | payer MEDICARE, BC, SELFPAY ==
--- NOTE | 2023-01-27 13:52 | ECHO_ITS ---
Patient Info Name: Angelica Cowan Age: 67 years : 1955 Gender: Female Ht: 68 in Wt: 220 lbs BSA: 2.22 m2 HR: 66 bpm BP: 136 / 97 mmHg Heart Rhythm: Sinus Rhythm Technical Quality: Fair Exam Date: 01/27/2023 2:09 PM Exam Location: Echo Lab Patient Status: Outpatient Admit Date: 01/27/2023 Staff Ordering Physician: Marcelino Richards MD Signal Operator: Valeria Escobar RDCS Attending Provider: Marcelino Richards MD Referring Physician: Maurice ABDUL; Exam Type: CA echo doppler color flow Study Info Indications R06.09 - Other forms of dyspnea Complete two-dimensional, color flow and Doppler transthoracic echocardiogram is performed. Summary 1. Complete two-dimensional, color flow and Doppler transthoracic echocardiogram is performed. 2. Left ventricular chamber dimension is normal. 3. Left ventricular systolic function is normal, estimated at 60-65%. 4. There is mild concentric increased left ventricular wall thickness. 5. The left ventricular diastolic function is normal. 6. E/e' 8 is minimally elevated. 7. Left atrial chamber dimension is mildly enlarged. 8. There is mild aortic valve sclerosis. 9. There is trace mitral valve regurgitation. 10. There is trace tricuspid valve regurgitation. 11. No pulmonary hypertension, estimated pulmonary arterial systolic pressure is 25 mmHg. 12. There is trace pulmonic regurgitation. Left Ventricle E/e' 8 is minimally elevated. Left ventricular chamber dimension is normal. Left ventricular systolic function is normal, estimated at 60-65%. There is mild concentric increased left ventricular wall thickness. The left ventricular diastolic function is normal. Right Ventricle Right ventricular systolic function is normal and with normal TAPSE 2.3 cm. Right ventricular chamber dimension is normal. Left Atria Left atrial chamber dimension is mildly enlarged. Right Atria Right atrial chamber dimension is normal. Aortic Valve The aortic valve is trileaflet. There is mild aortic valve sclerosis. There is no aortic valve stenosis. There is no aortic valve regurgitation. Pulmonic Valve There is trace pulmonic regurgitation. Mitral Valve There is no mitral valve stenosis. There is trace mitral valve regurgitation. Tricuspid Valve There is trace tricuspid valve regurgitation. No pulmonary hypertension, estimated pulmonary arterial systolic pressure is 25 mmHg. Pericardium/Pleural There is no pericardial effusion. Inferior Vena Cava Normal inferior vena cava with >50% collapse upon inspiration consistent with normal right atrial pressure, 5 mmHg. Aorta The aortic root size at the sinus of Valsalva is normal. Left Ventricular Outflow Tract Name Value Normal LVOT 2D LVOT Diameter 2.0 cm LVOT Doppler LVOT Peak Gradient 2 mmHg LVOT Mean Gradient 1 mmHg LVOT VTI 15 cm LVOT VTI/AV VTI Ratio 0.6 LVOT Stroke Volume 50 ml LVOT CO 2.7 l/min LVOT CI 1.3 l/min/m2 Pulmonic Valve
== END 2023-01-27 13:46 | disposition home or self-care (01) ==
LOC: ANHCARD 13:47
PROVIDERS: PCP Family Medicine; Visit Provider Internal Medicine Pulmonary Disease
DX: R06.02 Shortness of breath (principal)
CPT/HCPCS: 93306

== ENCOUNTER 2023-03-05 16:14 | Outpatient (CLI) | payer MEDICARE, BC, SELFPAY ==
[2023-03-05 16:56] LABS: Iron 113 ug/dL (37-170)
[2023-03-05 17:05] LABS: Percent Iron Saturation 38 % (20-50)
== END 2023-03-05 16:15 | disposition home or self-care (01) ==
PROVIDERS: PCP Family Medicine Sports Medicine; Visit Provider Internal Medicine Pulmonary Disease
DX: D64.9 Anemia, unspecified (principal)
CPT/HCPCS: 36415; 82728; 83540; 83550

== ENCOUNTER 2023-04-02 12:46 | Outpatient (CLI) | payer MEDICARE, BC, SELFPAY ==
[2023-04-02 13:00] VITALS: PULSE 82; O2SAT 100
[2023-04-02 13:05] VITALS: PULSE 89; O2SAT 99
[2023-04-02 13:15] VITALS: PULSE 82; O2SAT 100
--- NOTE | 2023-04-02 13:24 | HOMEO2EVAL ---
Evaluation was performed at [facility] Home Oxygen Evaluation RC: Home Oxygen (O2) Evaluation Start: 04/02/23 13:22 Freq: Status: Active Protocol: RPE Activity Type Activity Date Activity User E-sign Co-sign Detail Recorded Client Recorded Date Recorded By Document 04/02/23 13:00 KRAIG [email or web address] 04/02/23 13:24 KRAIG Document 04/02/23 13:05 KRAIG [email or web address] 04/02/23 13:24 KRAIG Document 04/02/23 13:15 KRAIG [email or web address] 04/02/23 13:24 KRAIG 04/02/23 04/02/23 04/02/23 13:00 13:05 13:15 Home O2 Evaluation [Oxygen] -Test Phase Resting Exercise Resting -Oxygen Delivery Room Air Room Air Room Air [Pulse Oximetry] -Pulse Oximetry (90-100 %) 100 99 100 [Pulse Rate] -Pulse Rate (60-100 beats/min) 82 89 82 [Comments] -Home Oxygen Evaluation Comments NO HOME O2 NEEDED AT THIS TIME [Charges] -Evaluation Charges O2 Evaluation by Pulmonary
== END 2023-04-02 12:47 | disposition home or self-care (01) ==
LOC: ANHPFT 12:47
PROVIDERS: PCP Family Medicine Sports Medicine; Visit Provider Internal Medicine Pulmonary Disease
DX: J45.909 Unspecified asthma, uncomplicated (principal)
CPT/HCPCS: 94618

== ENCOUNTER 2023-09-10 01:14 | Day surgery (SDC) | payer MEDICARE, BC, SELFPAY ==
[2023-09-03 10:32] VITALS: BMI 34.0
[2023-09-10 10:16] VITALS: BP 143/101; PULSE 91; RESP 18; TEMP 36.6; O2SAT 99
[2023-09-10] MEDS: LACTATED RINGERS 1,000 ML 150 ML IV CONT (10:29)
[2023-09-10 10:35] LABS: Glucose Point of Care 147 mg/dl (65-105)
--- NOTE | 2023-09-10 10:55 | WPDANESEPPF ---
Anes - Initial Pre Proc Eval Procedure: Operation Date: 09/10/23 11:30 Proposed Procedures p Esophagogastroduodenoscopy - Juni Huang MD Date/Time: 09/10/23 10:55 Surgeon: Juni Huang MD Pre Op Diagnosis: Nausea with vomiting unspecified Patient Data Age: 67 Gender: F Height: 1.68 m Weight: 93.6 kg Last Vital Signs Temp 97.9 F 09/10/23 10:16 Pulse 91 09/10/23 10:16 Resp 18 09/10/23 10:16 BP 143/101 H 09/10/23 10:16 Pulse Ox 99 09/10/23 10:16 O2 Del Method Room Air 09/10/23 10:16 Allergies Allergy/AdvReac Type Severity Reaction Status Date / Time No Known Allergies Allergy Verified 09/10/23 10:15 Home Medications Medication Instructions Recorded Confirmed Type brimonidine 0.15 % eye drops 1 drp EACH EYE Q12H 12/10/20 09/03/23 History losartan 100 mg tablet 100 mg PO DAILY #90 tabs 11/30/21 09/03/23 Rx sertraline 100 mg tablet 100 mg PO DAILY #90 tabs 02/16/22 09/03/23 Rx cholecalciferol (vitamin D3) 250 125 mcg PO DAILY 03/05/22 09/03/23 History mcg (10,000 unit) tablet biotin 10,000 mcg disintegrating 10,000 mcg PO DAILY 06/15/22 09/03/23 History tablet multivitamin 1 tablet PO DAILY 06/15/22 09/03/23 History levothyroxine 150 mcg tablet 150 mcg PO DAILY #90 tabs 06/30/22 09/03/23 Rx aspirin 81 mg tablet,delayed 81 mg PO DAILY 07/08/22 09/03/23 History release (Adult Aspirin Regimen) lysine 500 mg tablet (L-Lysine) 1,000 mg PO DAILY 07/08/22 09/03/23 History magnesium oxide 500 mg capsule 500 mg PO DAILY 07/08/22 09/03/23 History selenium 200 mcg tablet 200 mcg PO BID 07/08/22 09/03/23 History turmeric root extract 500 mg tablet 500 mg PO DAILY 07/08/22 09/03/23 History vitamin E (dl, acetate) 180 mg 180 mg PO DAILY 07/08/22 09/03/23 History (400 unit) capsule diphenhydramine HCl 50 mg tablet 50 mg PO HS 10/05/22 09/03/23 History ezetimibe 10 mg tablet 10 mg PO DAILY 10/05/22 09/03/23 History amitriptyline 50 mg tablet 50 mg PO QHS #90 tabs 11/24/22 09/03/23 Rx sumatriptan succinate 100 mg tablet 100 mg PO ONCE PRN migraine 11/24/22 09/03/23 Rx headache #9 tabs ipratropium 0.5 mg-albuterol 3 mg 3 ml inhalation TID PRN shortness 12/10/22 09/03/23 Rx (2.5 mg base)/3 mL nebulization of breath or wheezing #270 mL soln ASV #1 ea 02/15/23 09/03/23 Rx benzonatate 200 mg capsule 200 mg PO TID cough #90 caps 02/24/23 09/03/23 Rx montelukast 10 mg tablet 10 mg PO DAILY #30 tabs 03/08/23 09/03/23 Rx zolmitriptan 5 mg tablet See Rx Instructions .Route 03/10/23 09/03/23 Rx .COMPLEX #36 tabs ascorbate calcium (vitamin C) 500 500 mg PO DAILY 04/06/23 09/03/23 History mg tablet folic acid 5 mg/mL injection 1 mg subcut DAILY 04/06/23 09/03/23 History solution zavegepant 10 mg/actuation nasal 1 spray intranasal ONCE PRN 04/06/23 09/03/23 Rx spray (Zavzpret) migraine headache #6 ea topiramate 100 mg tablet See Rx Instructions .Route 06/25/23 09/03/23 Rx .COMPLEX #360 tabs atogepant 60 mg tablet (Qulipta) 60 mg PO DAILY #30 tabs 08/20/23 09/03/23 Rx empagliflozin 10 mg tablet 10 mg PO DAILY 09/03/23 09/03/23 History (Jardiance) hydrochlorothiazide 25 mg tablet 25 mg PO DAILY 09/03/23 09/03/23 History Laboratory Tests 09/10/23 10:22 POC Capillary Glucose 147 H mg/dl (65-105) Patient hx anesthesia problems: none Family hx anesthesia problems: none Results Review: All pre-operative results and documents have been reviewed as part of the pre-operative evaluation. [facility] Past Medical History Medical History (Updated 08/19/23 @ 11:21 by RADHA Manzo) Bulging discs Chronic pain syndrome Chronic pancreatitis Gestational diabetes Hx of migraines Hyperlipidemia Hypertension IBS (irritable bowel syndrome) KAYLA (obstructive sleep apnea) Osteoporosis Scoliosis Thyroid disorder Surgical History Surgical History H/O arthroscopic knee surger
--- NOTE | 2023-09-10 10:55 | WPDHPUPDATE1 ---
History and Physical Update Update Date/Time: 09/10/23 10:55 History and Physical has been reviewed, including an updated exam of the patient. There are NO changes in the patient's condition. Risks, benefits, and alternatives have been discussed and questions answered. Patient agrees to proceed with procedure.
[2023-09-10 11:11] VITALS: BP 102/62; PULSE 67; RESP 15; O2SAT 92
[2023-09-10 11:21] VITALS: BP 109/59; PULSE 68; RESP 23; O2SAT 97
[2023-09-10 11:31] VITALS: BP 113/78; PULSE 66; RESP 17; O2SAT 97
== END 2023-09-10 11:43 | disposition home or self-care (01) ==
PROVIDERS: PCP Family Medicine Sports Medicine; Referring Provider Nurse Practitioner Family; Visit Provider Internal Medicine Gastroenterology
PROC: 0DJ08ZZ Inspection of Upper Intestinal Tract, Via Natural or Artificial Opening Endoscopic (ICD-10-PCS; CPT 43235; principal; 2023-09-10 11:30)
DX: R11.2 Nausea with vomiting, unspecified (principal); K86.1 Other chronic pancreatitis; K58.9 Irritable bowel syndrome, unspecified; K44.9 Diaphragmatic hernia without obstruction or gangrene; K29.70 Gastritis, unspecified, without bleeding; I10 Essential (primary) hypertension; E03.9 Hypothyroidism, unspecified; E78.5 Hyperlipidemia, unspecified; G47.33 Obstructive sleep apnea (adult) (pediatric); Z87.891 Personal history of nicotine dependence; E66.9 Obesity, unspecified; Z68.33 Body mass index [BMI] 33.0-33.9, adult
CPT/HCPCS: 43239; 43249; 82948; 88305; 88307; C1726; J2704; J7120

== ENCOUNTER 2024-02-08 10:35 | Outpatient (CLI) | payer MEDICARE, BC, SELFPAY ==
--- NOTE | ~2024-02-08 | MR_ITS ---
EXAMINATION: MR brain/brain stem wo con DATE: 02/08/2024 11:23 INDICATION: Intractable migraine, increasing severity or frequency. TECHNIQUE: Magnetic resonance imaging (MRI) of the brain and brainstem was performed without intraven ous contrast. COMPARISON: Brain MRI 09/16/2018 FINDINGS: There are scattered areas of nonspecific increased T2-weighted signal intensity in the cere bral white matter, which is within normal limits for the patient's age. There is no intracranial hemo rrhage, acute infarction, or abnormal intracranial mass lesion. The ventricles are normal in size. Th e mastoid air cells are normal. There is mild mucosal thickening in the paranasal sinuses. The orbits are normal. IMPRESSION: 1. Normal aging brain. Reviewed, dictated and finalized at location A. 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 Normal aging brain.
== END 2024-02-08 10:36 | disposition home or self-care (01) ==
LOC: GOSHIMG 10:37
PROVIDERS: PCP Psychiatry & Neurology Neurology; Visit Provider Psychiatry & Neurology Neurology
DX: G43.919 Migraine, unspecified, intractable, without status migrainosus (principal); Z87.828 Personal history of other (healed) physical injury and trauma
CPT/HCPCS: 70551

== ENCOUNTER 2024-02-16 14:49 | Outpatient (CLI) | payer MEDICARE, BC, SELFPAY ==
--- NOTE | ~2024-02-16 | XR_ITS ---
EXAMINATION: XR knee LT min 4V DATE: 02/16/2024 15:26 INDICATION: Left knee pain. TECHNIQUE: 4 views of left knee including standing views were obtained. COMPARISON: None. FINDINGS: There is varus angulation at the knee. No fracture. There is severe osteoarthritis and medi al and lateral compartments and moderate osteoarthritis of patellofemoral compartment. There is a sma ll knee joint effusion. IMPRESSION: 1. Severe left knee osteoarthritis. 2. Small left knee joint effusion. Reviewed, dictated and finalized at location A. 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
--- NOTE | ~2024-02-16 | XR_ITS ---
EXAMINATION: XR knee RT min 4V DATE: 02/16/2024 15:26 INDICATION: Right knee pain. TECHNIQUE: 4 views of right knee including standing views were obtained. COMPARISON: Right tibia and fibula radiographs 07/25/2012 FINDINGS: Alignment is normal. No fracture. There is mild osteoarthritis of medial and patellofemoral compartments and moderate osteoarthritis of lateral compartment. No knee joint effusion. There is a loose body in the knee joint posteriorly. IMPRESSION: 1. Moderate right knee osteoarthritis. 2. Right knee joint loose body. Reviewed, dictated and finalized at location A. 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
--- NOTE | ~2024-02-16 | XR_ITS ---
EXAMINATION: XR hip BI 2V w AP pelvis DATE: 02/16/2024 15:26 INDICATION: Bilateral hip pain TECHNIQUE: Anteroposterior view of the pelvis and anteroposterior and frog-leg lateral views of the l eft hip and anteroposterior and frog-leg lateral views of the right hip and were obtained. COMPARISON: 06/10/2022 FINDINGS: Alignment is normal. No fracture or suspected osteonecrosis. Bilateral hip joint spaces appear relati vely preserved with tiny marginal osteophytes about the femoral heads consistent with minimal osteoar thritis. Mild bilateral sacroiliac osteoarthritis. Mild lumbar dextrocurvature with severe lower lumb ar spondylosis. IMPRESSION: 1. Mild bilateral sacroiliac and minimal bilateral hip osteoarthritis. No acute osseous abnormality. 2. Mild lumbar dextrocurvature with severe lower lumbar spondylosis. Reviewed, dictated and finalized at location B. 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
== END 2024-02-16 14:50 | disposition home or self-care (01) ==
PROVIDERS: PCP Internal Medicine; Visit Provider Internal Medicine
DX: M16.0 Bilateral primary osteoarthritis of hip (principal); M46.1 Sacroiliitis, not elsewhere classified; M17.0 Bilateral primary osteoarthritis of knee; M23.41 Loose body in knee, right knee; M25.462 Effusion, left knee; M43.8X6 Other specified deforming dorsopathies, lumbar region; M43.06 Spondylolysis, lumbar region
CPT/HCPCS: 73521; 73564

== ENCOUNTER 2024-03-03 14:54 | Outpatient (CLI) | payer MEDICARE, BC, SELFPAY ==
[2024-03-03 15:43] LABS: Basophils Absolute Auto 0.1 K/mm3 (0.0-0.1); Basophils Percent Auto 0.8 % (0.2-1.2); Eosinophils Absolute Auto 0.1 K/mm3 (0-0.3); Eosinophils Percent Auto 2.1 % (0-4.4); Hematocrit 47.4 % (37.0-47.0); Hemoglobin 15.5 g/dL (12.0-15.0); Immature Granulocyte Absolute 0.02 K/mm3 (0.00-0.031); Immature Granulocyte Percent A 0.3 % (0-0.5); Lymphocytes Absolute Auto 1.05 K/mm3 (0.9-3.2); Lymphocytes Percent Auto 16.6 % (18.3-44.2); Mean Corpuscular HGB Conc 32.7 g/dl (32-36); Mean Corpuscular Hemoglobin 30.4 pg (26-34); Mean Corpuscular Volume 92.9 fl (80-100); Mean Platelet Volume 9.7 fl (7.4-10.4); Monocytes Absolute Auto 0.4 K/mm3 (0.1-0.6); Monocytes Percent Auto 6.3 % (2.6-8.5); Neutrophils Absolute Auto 4.7 K/mm3 (1.3-6.7); Neutrophils Percent Auto 73.9 % (45.5-73.1); Platelet Count Result 238 k/mm3 (150-375); Red Cell Distribution Width 14.2 % (11.5-14.5); White Blood Count 6.3 K/mm3 (4.5-10.0)
[2024-03-03 15:56] LABS: Alanine Aminotransferase 15 U/L (6-35); Albumin Level 4.6 g/dL (3.5-5.1); Alkaline Phosphatase 78 U/L (38-126); Anion Gap 6 mmol/L (4-12); Aspartate Amino Transferase 29 U/L (14-36); Bilirubin,Total 0.7 mg/dL (0.2-1.3); Blood Urea Nitrogen 19 mg/dL (7-17); Calcium 9.9 mg/dL (8.4-10.2); Carbon Dioxide 27 mmol/L (22-30); Chloride 104 mmol/L (98-107); Cholesterol 148 mg/dL (0-200); Estimated Glomerular Filt Rate 55; Glucose 118 mg/dL (65-110); HDL Direct 78 mg/dL; Sodium 137 mmol/L (137-145); Triglycerides 107 mg/dL (<150); Uric Acid 4.2 mg/dL (2.5-7.5)
[2024-03-03 16:06] LABS: LDL Cholesterol Direct 44 mg/dL
[2024-03-03 16:09] LABS: Parathyroid Intact 54.3 pg/mL (14.5-75.2)
[2024-03-03 16:11] LABS: Hemoglobin A1C 6.1 % (<5.7)
[2024-03-03 16:20] LABS: Vitamin D 25 Hydroxy 64.6 ng/mL
[2024-03-03 16:34] LABS: Thyroid Stimulating Hormone Reflex 0.852 uIU/mL (0.465-4.68)
[2024-03-03 16:45] LABS: Creatinine Urine 81.5 mg/dL
[2024-03-03 17:15] LABS: MALB Creatinine Ratio < 7.4 mg/g (0-30); Microalbumin Urine Random < 6.0 mg/L (0-16.7)
[2024-03-07 09:14] LABS: Anti Nuclear Antibody Pattern Nuclear, Homogeneous; Anti Nuclear Antibody Titer 1:40 titer
[2024-03-08 01:14] LABS: ANCA Screen NEGATIVE (NEGATIVE)
== END 2024-03-03 14:55 | disposition home or self-care (01) ==
PROVIDERS: PCP Internal Medicine; Visit Provider Internal Medicine
DX: R94.6 Abnormal results of thyroid function studies (principal); E21.3 Hyperparathyroidism, unspecified; E55.9 Vitamin D deficiency, unspecified; I12.9 Hypertensive chronic kidney disease with stage 1 through stage 4 chronic kidney disease, or unspecified chronic kidney disease; N18.9 Chronic kidney disease, unspecified; R73.09 Other abnormal glucose; E78.41 Elevated Lipoprotein(a)
CPT/HCPCS: 36415; 80053; 80061; 82043; 82306; 83036; 83970; 84155; 84165; 84443; 84550; 85025; 86036; 86038; 86039

== ENCOUNTER 2024-03-10 13:38 | Outpatient (RCR) | payer MEDICARE, BC, SELFPAY ==
[2024-03-11 13:53] LABS: Collection Time Urine 24 HOURS
[2024-03-11 14:18] LABS: Patient Weight 215 Lbs; Total Volume 24 Hour Urine 1900 ml
[2024-03-11 14:39] LABS: Creatinine Urine 63.6 mg/dL; Total Protein Urine 24 Hr 133 mg/24hr (28-141); Total Protein Urine Random 7 mg/dL
[2024-03-11 14:50] LABS: Creatinine Clearance Urine 69.1 ml/min (75-125)
--- OUTSIDE RECORDS SUMMARY | 2024-03-15 14:53 | XMS_ITS ---
Author Organization [facility] As [employer] [facility] Address [address] [facility] [address] [facility] [address] [place] [address] Care Team Providers Care Senior Qc Technician Name Role Phone Ifrah Monroe MD Primary Care Provider Unavail Satya Caraballo Unavailable [phone] REASON FOR VISIT therapy referral Social History Sex Assigned At : Social History Observation Description Sex Assigned At Female Encounters Encounter Location Date Provider Diagnosis [facility] [employer] [place] [address] [facility] [address] [address] 03/01/2024 Satya Parsons Plan Of Treatment Next Appt Details Provider Name:Moose murphy, 03/27/2024 01:00:00 PM, [address], [address], [address], Provider Name:Satya Parsons , 03/31/2024 02:15:00 PM, [address] [place] [address] [address], [address], Progress Notes * RAF ROMERO CDOB:1955 (68 yo F)Acc No.[id number]:03/01/2024 Patient:?RAF ROMERO :1955???Age:68 Y???Sex:Female Address:[address] , [place], [address] * true * Date:? Generated for Printi ng/Faxing/eTransmitting on:?03/15/2024 02:52 PM RN REVIEW
--- OUTSIDE RECORDS SUMMARY | 2024-03-15 14:53 | XMS_ITS ---
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 Name Role Phone Ifrah Monroe MD Primary Care Provider Satya Paris Unavailable [phone] Social History Sex Assigned At : Social History Observation Description Sex Assigned At Female Encounters Encounter Location Date Provider Diagnosis [facility] [address] [place] [address] 03/01/2024 Satya Parsons Plan Of Treatment Next Appt Details Provider Name:Moose murphy, 03/27/2024 01:00:00 PM, [address], [facility] [address], [place], [address], Provider Name:Satya Parsons , 03/31/2024 02:15:00 PM, [address], [facility] [address], [place], [address], Progress Notes * RAF ROMERO CDOB:1955 (68 yo F)Acc No.[id number]:03/01/2024 Patient:?RAF ROMERO :1955???Age:68 Y???Sex:Female Address:[address] , [place], [address] * * Date:?
--- OUTSIDE RECORDS SUMMARY | 2024-03-15 14:53 | XMS_ITS ---
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 Name Role Phone Ifrah Monroe MD Primary Care Provider Unavail Satya Caraballo Unavailable [phone] REASON FOR VISIT Drug interaction Social History Sex Assigned At : Social History Observation Description Sex Assigned At Female Encounters Encounter Location Date Provider Diagnosis [facility] [employer] [place] [id number] [facility] [address] [address] 03/01/2024 Satya Parsons Plan Of Treatment Next Appt Details Provider Name:Moose murphy, 03/27/2024 01:00:00 PM, [address], [address], [address], Provider Name:Satya Parsons , 03/31/2024 02:15:00 PM, [address] [place] [address] [address], [address], [address], Progress Notes * RAF ROMERO CDOB:1955 (68 yo F)Acc No.[id number]:03/01/2024 Patient:?RAF ROMERO :1955???Age:68 Y???Sex:Female Address:[address] , [place], [address] * true * Date:? Generated for Printi ng/Faxing/eTransmitting on:?03/15/2024 02:52 PM [employer]ELOP[employer]
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
--- OUTSIDE RECORDS SUMMARY | 2024-03-15 14:53 | XMS_ITS ---
Author Organization [facility] Address [address] [facility] [address] [place] [address] Care Team Providers Care Capacitor Inspector Name Role Phone Emanuel Mccormack Unavailable [phone] PROBLEMS Problem Type ICD Code Onset Dates Problem Status W/U Status Risk SNOMED Code Notes Problem Chronic kidney disease, stage 3 unspecified (N18.30) Active confirmed Chronic kidney disease stage 3 (disorder) (464539913) Problem Type 2 diabetes mellitus without complications (E11.9) Active confirmed Type II diabetes mellitus without complication (741148360) Problem Essential hypertension (I10) Active confirmed Essential hypertension (03260796) Problem Gastro-esophageal reflux disease without esophagitis (K21.9) Active confirmed Gastro-esophage al reflux disease without esophagitis (837026234) Encounters Encounter Location Date Provider Diagnosis [facility] [address] [facility] [address] [place] [address] 03/01/2024 Emanuel Mccormack Chronic kidney disease, stage 3 unspecified N18.30 ; Type 2 diabetes mellitus without complications E11.9 ; Essential hypertension I10 and Gastro-esophageal reflux disease without esophagitis K21.9 ASSESSMENTS Encounter Date Diagnosis Assessment Notes Treatment Notes Treatment Clinical Notes Section Notes 03/01/2024 Chronic kidney disease, stage 3 unspecified (ICD-10 - N18.30) 03/01/2024 Type 2 diabetes mellitus without complications (ICD-10 - E11.9) 03/01/2024 Essential hypertension (ICD-10 - I10) 03/01/2024 Gastro-esophageal reflux disease without esophagitis (ICD-10 - K21.9) PLAN OF TREATMENT Next Appt Details Provider Name:Emanuel Easton , 03/15/2024 04:30:00 PM, [address] [facility], [place], [address], Progress Notes * Noy ROMERO:1955 ([age] yo F)Acc No.[id number]:03/01/2024 Progress Notes Patient:??Angelica ROMERO Provider:??MD MARITA, F.A.C.P, F.A.S .N. :1955?Age:68 Y?Sex:Fe male Date:03/01/2024 Address:[address] [place] [address] , [id number] Subjective: * Chief Complaints: * ? * Medical History:?? Objective: Assessment: * Assessment: 1.??Chronic kidney disease, stage 3 unspecified - N18.30 (Primary)??2.??Type 2 diabetes mellitus without complications - E11.9??3.??Essential hypertension - I10??4.??Gastro-esophageal reflux disease without esophagitis - K21.9?? Plan: * Treatment: * Billing Information: * Visit Code:?? 03220 Office Visit, New Pt., Level 5. * Procedure Codes:?? * ING AND SCREENING PLANT SUPERVISOR Sign off status: Pending * Provider:??MD MARITA, F.Matilda.C.P, F.A.S .N. Date:??03/01/2024
--- OUTSIDE RECORDS SUMMARY | 2024-03-15 14:53 | XMS_ITS ---
Author Organization [facility] Address [address] [place] [address] Care Team Providers Care Technology Internship Name Role Phone Dustin Susan Unavailable [phone] REASON FOR VISIT Consult Headache Problems Problem Type SNOMED Code ICD Code Onset Dates Problem Status W/U Status Risk Notes Problem Chronic migraine without aura, non-intractab le (028610258363 100) Chronic migraine without aura, not intractable, without status migrainosus (G43.709) Active confirmed Problem Migraine with aura (7103401) Migraine with aura, not intractable, without status migrainosus (G43.109) Active confirmed Problem Chronic migraine without aura, non-refractor y (disorder) (553192973652 100) Migraine without aura, not intractable, without status migrainosus (G43.009) Active confirmed Encounters Encounter Location Date Provider Diagnosis [facility] [address] [facility] [address] [place] [address] 03/02/2024 Susan Chan Chronic migraine without aura, not intractable, without status migrainosus G43.709 ; Migraine with aura, not intractable, without status migrainosus G43.109 ; Migraine without aura, not intractable, without status migrainosus G43.009 ; Drug-induced headache, not elsewhere classified, not intractable G44.40 and Myalgia, unspecified site M79.10 Assessments Encounter Date Diagnosis (ICD Code) Assessment Notes Treatment Notes Treatment Clinical Notes Section Notes 03/02/2024 Chronic migraine without aura, not intractable, without status migrainosus (ICD-10 - G43.709) 03/02/2024 Migraine with aura, not intractable, without status migrainosus (ICD-10 - G43.109) 03/02/2024 Migraine without aura, not intractable, without status migrainosus (ICD-10 - G43.009) 03/02/2024 Drug-induced headache, not elsewhere classified, not intractable (ICD-10 - G44.40) 03/02/2024 Myalgia, unspecified site (ICD-10 - M79.10) Plan Of Treatment Next Appt Details Follow Up: 4 Weeks, Reason: Evaluation and Management Provider Name:Susan ochoa, 03/16/2024 08:00:00 AM, [address], [address], [place], [address], Progress Notes * Angelica ROMERODOB:1955 ([age] yo F)Acc No.[id number]:03/02/2024 Progress Notes Patient:?Angelica ROMERO Provider:?Susan Chan APRN :1955???Age:68 Y???Sex:Female D ate:03/02/2024 Address:[address] [place] [address] , [facility] Subjective: * Chief Complaints: * ???1. Consult Headache. * HPI: ???*Introduction:?I had the pleasure of seeing?Angelica Romero, who presented for evaluation of headaches. ?Headache History:?-Headache Onset:-Headache Description:? Prodrome: .? Aura: .? ?Headache phase:? .? Postdrome: . ?-Headache Triggers: ?-Headache Frequency:? The patient is currently experiencing Headache days/month and Migraine days/month. ?Associated Factors:-Stress/Mood:? Patient denies high levels of stress, anxiety or depression symptoms-Sleep:? Patient denies sleep difficulty, snoring, or restless leg symptoms-Sinus/Allergy:? Patient denies allergies or sinus pain- Cervical spine:? Patient denies neck pain or myofascial pain ?-TMJ pain or jaw clenching:? Patient denies TMJ pain or bruxism. ?-Hormones:? Patient is postmenopausal. ?-Medication Overuse:? Present/Not present ?-Caffeine Overuse:? Present/Not present ?-Fluid intake: ?Current/Prior Migraine Treatment:-Current abortive therapy:-Previous failed abortive therapy:-Current preventive therapy:-Previous failed preventive therapy: ?-Other modalities:? Chiropractic, Physical Therapy, Acupuncture, Biofeedback, Migraine devices ?Previous Imaging: ?Headache Scales:MIDAS score:??HIT-6 score:??.?*Mental Health:?Depression Screening Scale?PHQ-9 score: ?More than 5 minutes in spent in discussion regarding depression screening.?Anxiety Screening Scale?FELY-7 score:.? * ROS:?CONSTITUTIONAL:?Positive for?Patient denies fevers, chills, sweats, unintended weight loss, loss of appetite, or chronic fatigue.?ENT:?Positive?Patient denies ear fullness or pain or sinus pain.?RESPIRATORY:?Positive for?Patient denies shortness of breath or wheezing.?OPHTHALMOLOGY:?Positive for?Reviewed and except as mentioned above in the HPI is negative.?ENDOCRINOLOGY:?Positive for?Patient denies heat intolerance, cold intolerance, polyuria, elevated blood sugar, chronic fatigue.?CARDIOLOGY:?Positive for?Patient denies dizziness, palpitations, or chest pain.?GASTROENTEROLOGY:?Positive for?Patient denies diarrhea, melena, bloody stools, or abdominal pain.?UROLOGY:?Positive for?Patient denies urinary incontinence or urinary dysfunction.?DERMATOLOGY:?Positive for?Patient denies rash or hives.?NEUROLOGY:?Positive for?Reviewed and except as mentioned above in the HPI is negative.?HEMATOLOGY/LYMPH:?Positive for?Patient denies history of excessive bruising or bleeding diasthesis.?MUSCULOSKELETAL:?Positive for?Patient denies extremity joint pain or swelling.?PSYCHOLOGY:?Positive for?Reviewed and except as discussed above in the HPI is otherwise negative.? * Medical History:? Objective: * Vitals:? * Examination: ???General examination: ?General appearance:?Pleasant, well-developed, no distress.?HEENT:?No papilledema.? No tenderness to palpation over bilateral greater occipital or supraorbital nerves.?Neck, thyroid :?Supple.?Heart:?RRR, S1-S2, no murmurs, no rubs, no gallops.?Lungs:?Clear to auscultation and percussion in all lung penny.?Neurologic exam:?Alert and oriented x 4. Fluent speech. Intact recall, fund of knowledge. Appropriate affect. PERRL. EOMI without nystagmus. No visual field cut. Facial sensation intact to light touch and pinprick in bilateral V1/V2/V3. Facial movements normal and symmetric. Hearing intact to finger rub bilaterally. Palate symmetrically upgoing. Tongue midline. Motor 5/5 strength in all extremities. Reflexes 2+/2 and symmetric in all extremities. Bilateral flexor plantar responses. Sensory exam intact to light touch, pinprick, vibration, and proprioception in all extremities. Cerebellar testing no ataxia or dysmetria. Gait normal, negative Romberg, intact tandem.?Skin:?Normal, no rash, urticaria, angioedema.?Back:?No cervical or periscapular trigger points. Normal cervical? ROM.?Extremities:?No peripheral?edema.? Assessment: * Assessment: 1.?Chronic migraine without aura, not intractable, without status migrainosus - G43.709 (Primary)???2.?Migraine with aura, not intractable, without status migrainosus - G43.109???3.?Migraine without aura, not intractable, without status migrainosus - G43.009???4.?Drug-induced headache, not elsewhere classified, not intractable - G44.40???5.?Myalgia, unspecified site - M79.10??? Plan: * Treatment: * Procedure Codes:?G0444 ANNUA L DEPRESSION SCREENING 5-15 MIN, G8427 DOC MED[place] VERIFIED W/[place], [address] PT-FOCUSED HLTH RISK ASSMT * Preventive Medicine:?This was a 60 minute visit with time spent in reviewing prior records/notes, evaluation and management, counseling, and documentation. * Follow Up:?4 Weeks (Reason: Evaluation and Management) * Billing Information: * Visit Code:? 66029 Office Visit, New Pt., Level 4. Modifiers: 25 59829 Office Visit, New Pt., Level 5. Modifiers: 25 * Procedure Codes:? G0444 ANNUAL DEPRESSION SCREENING 5-15 MIN. G8427 DOC MEDS VERIFIED W/[place]. [address] PT-FOCUSED HLTH RISK ASSMT. * Electronic signature of TONY Vargas on 03/15/2024 at 02:53 PM COLORIST FORMULATOR Sign off status: Pending * Provider:?Susan Chan, ACCOUNT CLERK Date:? Generated for Rusty dejesus/Mervat/Ghazala on:?03/15/2024 02:53 PM COLORIST FORMULATOR History and Physical Notes * HPI (History of Present Illness) Category Sub-Category Detail Notes Category Not es *Introduction I had the pleasure o f seeing Angelica Romero, who presented for evaluation of headaches.Headache History: -Headache Onset:-Headache Description: Prodrome: . Aura: . Headache phase: . Postdrome: .-Headache Triggers:-Headache Frequency: The patient is currently experiencing Headache days/month and Migraine days/month.Associated Factors:-Stress/Mood: Patient denies high levels of stress, anxiety or depression symptoms-Sleep: Patient denies sleep difficulty, snoring, or restless leg symptoms-Sinus/Allergy: Patient denies allergies or sinus pain-Cervical spine: Patient denies neck pain or myofascial pain-TMJ pain or jaw clenching: Patient denies TMJ pain or bruxism.-Hormones: Patient is postmenopausal.-Medication Overuse: Present/Not present-Caffeine Overuse: Present/Not present-Fluid intake:Current/Prior Migraine Treatment:-Current abortive therapy:-Previous failed abortive therapy:-Current preventive therapy:-Previous failed preventive therapy:-Other modalities: Chiropractic, Physical Therapy, Acupuncture, Biofeedback, Migraine devicesPrevious Imaging:Headache Scales:MIDAS score: HIT-6 score: *Mental Health Depression Screening Scale PHQ-9 score: More than 5 minutes in spent in discussion regarding depression screening Anxiety Screening Scale FELY-7 score: Examination Category Sub-Category Detail Notes Category Not es General examination HEENT: No papillede ma. No tenderness to palpation over bilateral greater occipital or supraorbital nerves Neck, thyroid : Supple Heart: RRR, S1-S2, no murmu rs, no rubs, no gallops Lungs: Clear to auscultatio n and percussion in all lung penny Extremities: No peripheral edema General appearance: Pleasant, well-devel oped, no distress Skin: Normal, no rash, urt icaria, angioedema Neurologic exam: Alert and oriented x 4. Fluent speech. Intact recall, fund of knowledge. Appropriate affect. PERRL. EOMI without nystagmus. No visual field cut. Facial sensation intact to light touch and pinprick in bilateral V1/V2/V3. Facial movements normal and symmetric. Hearing intact to finger rub bilaterally. Palate symmetrically upgoing. Tongue midline. Motor 5/5 strength in all extremities. Reflexes 2+/2 and symmetric in all extremities. Bilateral flexor plantar responses. Sensory exam intact to light touch, pinprick, vibration, and proprioception in all extremities. Cerebellar testing no ataxia or dysmetria. Gait normal, negative Romberg, intact tandem Back: No cervical or peris capular trigger points. Normal cervical ROM
--- OUTSIDE RECORDS SUMMARY | 2024-03-15 14:53 | XMS_ITS | Patient Health Record ---
Author Organization [facility] Address [address] [place] [address] Care Team Providers Care Director Nurses' Registry Name Role Phone Susan Chan Unavailable [phone] Reason For Referral No Information Problems Problem Type SNOMED Code ICD Code Onset Dates Problem Status W/U Status Risk Notes Problem Chronic migraine without aura, non-refractor y (disorder) (097008537625 100) Migraine without aura, not intractable, without status migrainosus (G43.009) Active confirmed Problem Migraine with aura (4432032) Migraine with aura, not intractable, without status migrainosus (G43.109) Active confirmed Problem Chronic migraine without aura, non-intractab le (069599231291 100) Chronic migraine without aura, not intractable, without status migrainosus (G43.709) Active confirmed Plan Of Treatment Next Appt Details Provider Name:Susan ochoa, 03/16/2024 08:00:00 AM, [address] [facility], [address], [place], [address], Insurance Providers Payer Name Payer Address Payer Phone Subscriber Number Group Number Insured Name Patient Relationship to Insured Coverage Start Date Coverage End Date [employer] Att[employer] Claims [address] [place] [address] [id number] Angelica Cowan Self - patient is the insured [facility] [address] [place] [address] [id number] Angelica Cowan Self - patient is the insured Medical (General) History Medical History History ICD Code Hypothyroidism Hypertension DM2 COPD KAYLA CKD Depression FELY GERD myofascial pain syndrome lumbar spondylosis
--- OUTSIDE RECORDS SUMMARY | 2024-03-15 14:54 | XMS_ITS | Patient Health Record ---
Author Organization [facility] Address [address] [facility] [address] [facility] [address] [place] [address] Care Team Providers Care Boom Stick Man Name Role Phone Emanuel Mccormack Unavailable [phone] REASON FOR REFERRAL No Information PROBLEMS Problem Type ICD Code Onset Dates Problem Status W/U Status Risk SNOMED Code Notes Problem Type 2 diabetes mellitus without complications (E11.9) Active confirmed Type II diabetes mellitus without complication (465498663) Problem Gastro-esophageal reflux disease without esophagitis (K21.9) Active confirmed Gastro-esophage al reflux disease without esophagitis (113450364) Problem Essential hypertension (I10) Active confirmed Essential hypertension (07108901) Problem Chronic kidney disease, stage 3 unspecified (N18.30) Active confirmed Chronic kidney disease stage 3 (disorder) (938404663) Encounters Encounter Location Date Provider Diagnosis [facility] [address] [address] 03/01/2024 Emanuel Mccormack Chronic kidney disease, stage 3 unspecified N18.30 ; Type 2 diabetes mellitus without complications E11.9 ; Essential hypertension I10 and Gastro-esophageal reflux disease without esophagitis K21.9 [facility] [address] [facility] [address] [place] [address] 03/15/2024 Emanuel Mccormack ASSESSMENTS Encounter Date Diagnosis Assessment Notes Treatment Notes Treatment Clinical Notes Section Notes 03/01/2024 Type 2 diabetes mellitus without complications (ICD-10 - E11.9) 03/01/2024 Chronic kidney disease, stage 3 unspecified (ICD-10 - N18.30) 03/01/2024 Essential hypertension (ICD-10 - I10) 03/01/2024 Gastro-esophageal reflux disease without esophagitis (ICD-10 - K21.9) PLAN OF TREATMENT Next Appt Details Provider Name:Emanuel Mccormack 03/15/2024 04:30:00 PM, [address] [facility], [facility] [address], [place], [address],
--- OUTSIDE RECORDS SUMMARY | 2024-03-15 14:54 | XMS_ITS | Data Portability ---
Author Organization [facility], Main Office Address [address] [place] [address] Care Team Providers Care Aligner Barrel And Receiver Name Role Phone NANCY DIETZ Primary Care Provider JAILYN SENIOR Primary Care Provider JAILYN SENIOR Referring Provider DESTINI RUSSO In Home Baby Sitter [phone] Assessment Encounter Date Assessment Date Assessment LastModified by Organization Details LastModified Time 02/16/2024 02/16/2024 02/10/2024: A1C 6.2 Chol 234, TG 165, LDL 145 BUN 23, GFR 51, Gluc 117, Alb 4.6H, TP WNL HCT 46.2 Not available 02/16/2024 13:59:12 Plan of Treatment Reminders Order Date Submit Date Provider Last Modified By Organization Details Last Modified Time Details Appointments TeleMedic ine 2024 03:30P Benjamin Bob MD Not available Not available Not available Any 15 2024 09:45A Benjamin rudolph MD Not available Not available Not available Lab CMP, serum or plasma 2023 [facility] (Lab), [address] [place], [address], 02/02/2024 21:15:56 CBC w/ auto diff 2023 024 [facility] (Lab), [address] [place], [address], 02/02/2024 20:05:28 lipid panel, serum 2023 024 [facility] (Lab), [address] [place], [address], 02/02/2024 21:15:59 TSH, serum or plasma 2023 024 [facility] (Lab), [address] [place], [address], 02/02/2024 21:48:25 vitamin D, 25-hydrox y, total, serum [address] (Lab), [address] [place], [address], 02/09/2024 16:58:30 glycohemo globin, total, blood 2023 024 [facility] (Lab), [address] [place], [address], 02/02/2024 20:37:39 microalbu min, urine 2023 024 [facility] (Lab), [address] [place], [address], 02/02/2024 21:13:36 lipid panel, serum [address] (Lab), [address] [place], [address], 03/09/2024 14:12:48 CBC w/ auto diff [address] (Lab), [address] [place], [address], 03/09/2024 14:12:48 TSH, serum or plasma [address] (Lab), [address] [place], [address], 03/09/2024 14:12:48 CMP, serum or plasma 2023 024 [facility] (Lab), [address] [place], [address], 03/03/2024 18:39:13 vitamin D, 25-hydrox y, total, serum 2023 024 [email or web address] [facility] (Lab), [address] [place], [address], 03/09/2024 14:12:49 glycohemo globin, total, blood 2023 024 [email or web address] [facility] (Lab), [address] [place], [address], 02/17/2024 16:33:56 microalbu min, urine 2023 024 [facility] (Lab), [address] [place], [address], 03/03/2024 19:42:53 Referral gynecolog ist referral - Please call patient to schedule. 2023 024 IRIS Patrick MD, [address], [place], [address], 02/16/2024 10:05:57 pulmonolo gist referral - Please call patient to schedule. 2023 024 [email or web address] Annette Jorgensen CUT OFF [employer], [address] [facility], [address], [place], [address], 02/18/2024 16:07:10 psychiatr ist referral - Please call patient to schedule. 2023 024 IRIS Parsons MD, [address], [address], [place], [address], 02/16/2024 09:48:37 urologist referral - Please call patient to schedule. 2023 024 UGO James Bob, [address] [facility], [address], [place], [address], 03/03/2024 15:56:55 podiatris t referral - Please call patient to schedule. 2023 024 [email or web address] Vivek Reid DPM, [address] [facility], [address], [place], [address], 02/16/2024 09:40:15 gynecolog ist referral - Please call patient to schedule. 2023 024 Clair Patrick MD, [address], [address], [place], [address], 02/21/2024 16:53:28 pulmonolo gist referral - Please call patient to schedule. 2023 024 [email or web address] Annette Jorgensen [employer], [address] [facility], [address], [place], [address], 02/21/2024 16:53:29 psychiatr ist referral - Please call patient to schedule. 2023 024 [email or web address] Satya Parsons MD, [address], [address], [place], [address], 02/21/2024 16:53:30 nephrolog ist referral 2023 024 Emanuel Mccormack MD (Nephrology, [address], [address], [place], [address], 02/21/2024 16:54:29 urologist referral - Please call patient to schedule. 2023 024 [email or web address] James Bob, [address] [facility], [address], [place], [address], 02/21/2024 16:53:29 podiatris t referral - Please call patient to schedule. [address] [email or web address] Vivek Reid DPM, [address] [facility], [facility] [address], [place], [address], 02/21/2024 16:53:29 Procedures None recorded. Surgeries None recorded. Imaging MAMMO, screening , digital, bilateral - Please call patient to schedule. [address] ([facility]), [address] [place], [address], 03/07/2024 11:59:01 DEXA, axial skeleton [address] ([facility]), [address] [place], [address], 02/28/2024 16:26:18 MAMMO, screening , digital, bilateral - Please call patient to schedule. [address] ([facility]), [address] [place], [address], 02/17/2024 18:13:52 XR, hip + pelvis, bilateral , 3 or 4 view - Stat hold and call Dr Melba rudolph! [address] [facility], [address], [place], [address], 02/16/2024 16:32:52 DEXA, axial skeleton [address] ([facility]), [address] [place], [address], 02/17/2024 18:13:33 XR, knee, 4 or more view - Stat hold and call Dr Melba rudolph! [address] [facility], [address], [place], [address], 02/16/2024 16:35:24 Medication Orders meloxicam 7.5 mg tablet 2023 024 [facility] [place], [address], 03/03/2024 14:50:53 Lipitor 80 mg tablet 2023 024 [facility] [address], [address] [place], [address], 02/16/2024 12:48:16 oxybutyni n chloride ER 10 mg tablet,ex tended release 24 hr 2023 [facility] [address], [address] [place], [address], 03/03/2024 15:53:31 Patient TargetsNo targets recorded. Patient Instructions Encounter Date Encounter Id Patient Instructions Last Modified By Organization Details Last Modified Time 02/02/2024 [id number] dementia rating scale-2* Not available 02/02/2024 14:50:36 alcohol misuse* Not availa ble 02/02/2024 14:50:36 depression screening* Not available 02/02/2024 14:50:36 Timed Up and Go test (TUG)* Not available 02/02/2024 14:50:36 multi-dimensiona l health assessment questionnaire* Not available 02/02/2024 14:50:35 advance directiv es: care instructions Not available 02/02/2024 14:50:35 advance care planning: care instructions Not available 02/02/2024 14:50:35 [place] Advance Directives Not available 02/02/2024 14:50:36 diabetic eye exam* ATHENAFAX Not availab le 02/03/2024 13:57:42 Personalized [facility] Plan and Screening Recommendations Advance Directives - Do you have one? You have indicated that you are capable of preparing your advance care directive Advance Directives - Do we have your advance directive on file in your health record? Primary Prevention/Interven tion (prevents or decreases the chance of common diseases from occurring) Smoking Risk: Non Smoker Alcohol Misuse Screening: Negative Weight: Appropriate Overwei ght continue your current weight loss efforts try to lose 5% of your body weight try to lose 10% of your body weight Physical activity: minimum of 10-20 minutes of activity that causes mild breathlessness/day minimum of 20-30 minutes activity that causes mild breathlessness/day minimum of 30-40 minutes of activity that causes mild breathlessness/day Nutrition: Good Average Refer to attached handout Heart-Healthy Diet: After Your Visit Fall Risk (screened today): Low Intermediate Refer to attached handout Preventing Falls: After your Visit Vaccines Pneumococcal: Ordered Recommended today Influenza: Ordered Recommended today Chronic Disease Risks Stroke: Low Risk Intermediate Risk Heart Attack: Low risk Intermediate Risk Clogging of the Arteries: Low risk Intermediate Risk Diabetes: Low Risk Intermediate Risk I have no recommendations Ref er to attached handout ? P re-diabetes: After Your Visit? Drastica lly limit sugar and products made with any type of flour (bread, pasta, cereal, cookies, crackers, etc.) Secondary Prevention/Interven tion (detects treatable diseases before they may cause symptoms, disability, or ) Breast Cancer Screening with mammogram: Your next mammogram: Ordered Cervical/Uterine/Ov jay Cancer Screening: Your next PAP/pelvic in: Referral to child and youth program assistant Osteoporosis Screening: Your next DEXA in: Ordered Colon Cancer Screening: Colonoscopy Date Screening Last Performed:2022 Eye Disease Screening: Ordered Recommended today Dementia Risk: Low Intermediate I have no recommendations Depression Screening: Negative Positive [email or web address] Not available 02/02/2024 14:40:14 02/16/2024 [id number] diabetic eye exam* ATHENAFAX Not availa ble 02/17/2024 17:40:31 03/03/2024 [id number] 1. I will send a prescription for oxybutynin XL 10 mg dispensed 90 with 3 refills 2. She needs a telehealth in about 2-3 weeks to discuss results Not available 03/03/2024 15:52:00 Reason for Referral Computer Repair Instructor Referral for Gy necologic examination Please call patient to schedule. Referring Physician: Nancy Dietz Internal Medicine, Encounter Date: 02/02/2024 Ssis Developer Referral for Type 2 diabetes mellitus without complication Please call patient to schedule. Referring Physician: Nancy Dietz Internal Medicine, Encounter Date: 02/02/2024 Urologist Referral for Urina ry incontinence Please call patient to schedule. Referring Physician: Nancy Dietz Internal Medicine, Encounter Date: 02/02/2024 Window Systems Administrator Referral for C hronic obstructive pulmonary disease Please call patient to schedule. Referring Physician: Nancy Dietz Internal Medicine, Encounter Date: 02/02/2024 Psychiatrist Referral for Mo derate recurrent major depression Please call patient to schedule. Referring Physician: Nancy Dietz Internal Medicine, Encounter Date: 02/02/2024 Arch Pad Cementer Referral for Ch ronic kidney disease Referring Physician: Nancy Dietz Internal Medicine, Encounter Date: 02/16/2024 Computer Repair Instructor Referral for Gy necologic examination Please call patient to schedule. Referring Physician: Nancy Dietz Internal Medicine, Encounter Date: 02/16/2024 Ssis Developer Referral for Type 2 diabetes mellitus without complication Please call patient to schedule. Referring Physician: Nancy Dietz Internal Medicine, Encounter Date: 02/16/2024 Urologist Referral for Urina ry incontinence Please call patient to schedule. Referring Physician: Nancy Dietz Internal Medicine, Encounter Date: 02/16/2024 Window Systems Administrator Referral for C hronic obstructive pulmonary disease Please call patient to schedule. Referring Physician: Nancy Dietz Internal Medicine, Encounter Date: 02/16/2024 Psychiatrist Referral for Mo derate recurrent major depression Please call patient to schedule. Referring Physician: Nancy Dietz Internal Medicine, Encounter Date: 02/16/2024 Results Created Date Observation Date Name Description Value Unit Range Abnormal Flag Note LastModifiedBy Organization Detail LastModifiedTime 05/28/19 22 05/28/2021 TSH thyroid-stim ulating hormone 0.057 uIU/m L 0.465- 4.680 low Not Available [facility] (Lab) [address] [place], [address], 05/28/2021 22:27:30 05/28/19 22 05/28/2021 T4 FREE free T4 1.81 NG/dL 0.78-2 .19 Not Available [facility] (Lab) [address] [place], [address], 05/28/2021 21:57:13 05/28/19 22 05/28/2021 T3 FREE free T3 3.6 pg/mL 2.77-5 .27 Not Available [facility] (Lab) [address] [place], [address], 05/28/2021 21:57:09 05/28/19 22 05/27/2021 COMPR EHENS FRANSICO METAB OLIC PANEL potassium 3.8 mmol/ L 3.5-5. 1 Not Available [facility] (Lab) [address] [place], [address], 05/27/2021 20:28:39 05/28/19 22 05/27/2021 COMPR EHENS FRANSICO METAB OLIC PANEL sodium 136 mmol/ L 137-14 5 low Not Available [facility] (Lab) [address] [place], [address], 05/27/2021 20:28:39 05/28/19 22 05/27/2021 COMPR EHENS FRANSICO METAB OLIC PANEL chloride 101 mmol/ L 98-107 Not Available [facility] (Lab) [address] [place], [address], 05/27/2021 20:28:39 05/28/19 22 05/27/2021 COMPR EHENS FRANSICO METAB OLIC PANEL carbon dioxide 25 mmol/ L 22-30 Not Available [facility] (Lab) [address] [place], [address], 05/27/2021 20:28:39 05/28/19 22 05/27/2021 COMPR EHENS FRANSICO METAB OLIC PANEL agap 13.8 mmol/ L 14-22 low Not Available [facility] (Lab) [address] [place], [address], 05/27/2021 20:28:39 05/28/19 22 05/27/2021 COMPR EHENS FRANSICO METAB OLIC PANEL glucose 118 mg/dL 70-99 high Not Available [facility] (Lab) [address] [place], [address], 05/27/2021 20:28:39 05/28/19 22 05/27/2021 COMPR EHENS FRANSICO METAB OLIC PANEL BUN 24 mg/dL 8-19 high Not Available [facility] (Lab) [address] [place], [address], 05/27/2021 20:28:39 05/28/19 22 05/27/2021 COMPR EHENS FRANSICO METAB OLIC PANEL creatinine 1.25 mg/dL 0.66-1 .25 Not Available [facility] (Lab) [address] [place], [address], 05/27/2021 20:28:39 05/28/19 22 05/27/2021 COMPR EHENS FRANSICO METAB OLIC PANEL GFR 43 Refer ence Range : Hale ge GFR Healt hy Adult : >60 mL/mi n/1.7 3 m2 Chron ic Kidne y Disea se: 15-60 mL/mi n/1.7 3 m2 Kidne y Failu re: <15/m L/min /1.73 m2 www.n iddk. nih.g ov The MDRD study equat ion has not been valid ated in child mukul <18 years of age; pregn ant women ; the elder ly >85 years of age; or in some racia l or ethni c subgr oups, such as Hispa nics. Outsi de the valid ated moriah eters , estim ated GFR is less accur ate, requi ring clini savanna judgm ent on a case- by-ca se basis . Clini savanna inter preta tion for other races and ages must be made by the clini mac. The MDRD study equat ion has not been valid ated for the evalu ation of serum creat inine relat ed to nutri wiley l statu s or medic ation usage . For perso ns <18 years of age, a pedia tric GFR calcu lator is avail able on the [facility] websi te: https ://ariadna trevino.o aileen/pr ofess ional s/kdo qi/gf r_cal culat or Not Available [facility] (Lab) [address] [place], [address], 05/27/2021 20:28:39 05/28/19 22 05/27/2021 COMPR EHENS FRANSICO METAB OLIC PANEL alkaline phosphatase 92 U/L 38-126 Not Available [facility] (Lab) [address] [place], [address], 05/27/2021 20:28:39 05/28/19 22 05/27/2021 COMPR EHENS FRANSICO METAB OLIC PANEL alanine aminotransfe rase 10 U/L 0-35 Not Available [facility] (Lab) [address] [place], [address], 05/27/2021 20:28:39 05/28/19 22 05/27/2021 COMPR EHENS FRANSICO METAB OLIC PANEL aspartate aminotransfe rase 18 U/L 15-37 Not Available [facility] (Lab) [address] [place], [address], 05/27/2021 20:28:39 05/28/19 22 05/27/2021 COMPR EHENS FRANSICO METAB OLIC PANEL bilirubin, total 0.50 mg/dL 0.20-1 .30 Not Available [facility] (Lab) [address] [facility] [place], [address], 05/27/2021 20:28:39 05/28/19 22 05/27/2021 COMPR EHENS FRANSICO METAB OLIC PANEL calcium 9.9 mg/dL 8.4-10 .2 Not Available [facility] (Lab) [address] [place], [address], 05/27/2021 20:28:39 05/28/19 22 05/27/2021 COMPR EHENS FRANSICO METAB OLIC PANEL total protein 7.4 g/dL 6.3-8. 2 Not Available [facility] (Lab) [address] [place], [address], 05/27/2021 20:28:39 05/28/19 22 05/27/2021 COMPR EHENS FRANSICO METAB OLIC PANEL albumin 4.6 g/dL 3.0-4. 4 high Not Available [facility] (Lab) [address] [place], [address], 05/27/2021 20:28:39 05/28/19 22 05/27/2021 COMPR EHENS FRANSICO METAB OLIC PANEL globulin 2.8 g/dL 2.6-4. 2 Not Available [facility] (Lab) [address] [place], [address], 05/27/2021 20:28:39 05/28/19 22 05/27/2021 COMPR EHENS FRANSICO METAB OLIC PANEL A/G ratio 1.6 ratio 1.0-2. 0 Not Available [facility] (Lab) [address] [place], [address], 05/27/2021 20:28:39 05/28/19 22 05/27/2021 LIPID PANEL cholesterol 190 mg/dL 140-19 9 NIH LUC NSUS RECOM MENDA TION FOR NIYAH STERO L: ADULT CHILD LOW RISK: <200 <170 BORDE RLINE : <200- 239 ----- HIGH RISK: >240 >200 Not Available [facility] (Lab) [address] [place], [address], 05/27/2021 20:28:34 05/28/19 22 05/27/2021 LIPID PANEL triglyceride s 134 mg/dL 0-150 NIH LUC NSUS REPOR T RECOM MENDA TION FOR TRIGL YCERI CHRYSTAL: ADULT CHILD LOW RISK: <150 ----- BODER LINE: 150-1 99 ----- HIGH RISK: >200 ----- Not Available [facility] (Lab) [address] [place], [address], 05/27/2021 20:28:34 05/28/19 22 05/27/2021 LIPID PANEL HDL cholesterol 51 mg/dL 40- Not Available [facility] (Lab) [address] [place], [address], 05/27/2021 20:28:34 05/28/19 22 05/27/2021 LIPID PANEL LDL cholesterol, calculated 112 mg/dL 0-130 NIH LUC NSUS REPOR T RECOM MENDA TIONS FOR LDL: ADULT CHILD LOW RISK <130 <110 (OPTI MAL LDL) <100 ----- BORDE RLINE : 130-1 59 ----- HIGH RISK: >160 >130 A TRIGL YCERI DE RESUL T >400 INVAL IDATE S THE CALCU LATIO N FOR LDL FRACT IONAT ION - THE LDL RESUL T WILL NOT BE REPOR KRISTY. Not Available [facility] (Lab) [address] [place], [address], 05/27/2021 20:28:34 05/28/19 22 05/27/2021 CBC/C OMPLE TE BLD COUNT W/DIF F hematocrit 46.3 % 35.7-4 5.7 high Not Available [facility] (Lab) [address] [place], [address], 05/27/2021 19:27:24 05/28/19 22 05/27/2021 CBC/C OMPLE TE BLD COUNT W/DIF F white blood cells 6.3 x10'3 /uL 4.2-10 .8 Not Available [facility] (Lab) [address] [place], [address], 05/27/2021 19:27:24 05/28/19 22 05/27/2021 CBC/C OMPLE TE BLD COUNT W/DIF F red blood cells 4.99 x10'6 /uL 3.80-5 .20 Not Available [facility] (Lab) [address] [place], [address], 05/27/2021 19:27:24 05/28/19 22 05/27/2021 CBC/C OMPLE TE BLD COUNT W/DIF F hemoglobin 15.3 g/dL 12.0-1 5.6 Not Available [facility] (Lab) [address] [place], [address], 05/27/2021 19:27:24 05/28/19 22 05/27/2021 CBC/C OMPLE TE BLD COUNT W/DIF F mean red cell volume 92.8 fL 82.0-9 9.0 Not Available [facility] (Lab) [address] [place], [address], 05/27/2021 19:27:24 05/28/19 22 05/27/2021 CBC/C OMPLE TE BLD COUNT W/DIF F mean red cell hemoglobin 30.7 pg 27.0-3 3.0 Not Available [facility] (Lab) [address] [place], [address], 05/27/2021 19:27:24 05/28/19 22 05/27/2021 CBC/C OMPLE TE BLD COUNT W/DIF F mean RBC HGB concentratio n 33.0 g/dL 31.0-3 6.0 Not Available [facility] (Lab) [address] [facility] [place], [address], 05/27/2021 19:27:24 05/28/19 22 05/27/2021 CBC/C OMPLE TE BLD COUNT W/DIF F red cell distribution width 13.8 % 11.8-1 5.5 Not Available [facility] (Lab) [address] [place], [address], 05/27/2021 19:27:24 05/28/19 22 05/27/2021 CBC/C OMPLE TE BLD COUNT W/DIF F platelets 321 x10'3 /uL 150-40 0 Not Available [facility] (Lab) [address] [place], [address], 05/27/2021 19:27:24 05/28/19 22 05/27/2021 CBC/C OMPLE TE BLD COUNT W/DIF F mean platelet volume 9.7 fL 9.0-12 .4 Not Available [facility] (Lab) [address] [place], [address], 05/27/2021 19:27:24 05/28/19 22 05/27/2021 CBC/C OMPLE TE BLD COUNT W/DIF F neutrophils 57.2 % 39.0-7 2.0 Not Available [facility] (Lab) [address] [place], [address], 05/27/2021 19:27:24 05/28/19 22 05/27/2021 CBC/C OMPLE TE BLD COUNT W/DIF F lymphocytes 33.3 % 16.0-4 7.0 Not Available [facility] (Lab) [address] [place], [address], 05/27/2021 19:27:24 05/28/19 22 05/27/2021 CBC/C OMPLE TE BLD COUNT W/DIF F monocytes 6.5 % 5.0-12 .0 Not Available [facility] (Lab) [address] [place], [address], 05/27/2021 19:27:24 05/28/19 22 05/27/2021 CBC/C OMPLE TE BLD COUNT W/DIF F eosinophils 1.9 % 1.0-7. 0 Not Available [facility] (Lab) [address] [place], [address], 05/27/2021 19:27:24 05/28/19 22 05/27/2021 CBC/C OMPLE TE BLD COUNT W/DIF F basophils 0.9 % 0.0-2. 0 Not Available [facility] (Lab) [address] [place], [address], 05/27/2021 19:27:24 05/28/19 22 05/27/2021 CBC/C OMPLE TE BLD COUNT W/DIF F immature granulocytes 0.2 % 0.00-0 .50 Not Available [facility] (Lab) [address] [place], [address], 05/27/2021 19:27:24 05/28/19 22 05/27/2021 CBC/C OMPLE TE BLD COUNT W/DIF F neutrophils, absolute count 3.63 x10'3 /uL 1.5-8. 0 Not Available [facility] (Lab) [address] [place], [address], 05/27/2021 19:27:24 05/28/19 22 05/27/2021 CBC/C OMPLE TE BLD COUNT W/DIF F lymphocytes, absolute count 2.11 x10'3 /uL 1.07-3 .43 Not Available [facility] (Lab) [address] [place], [address], 05/27/2021 19:27:24 05/28/19 22 05/27/2021 CBC/C OMPLE TE BLD COUNT W/DIF F monocytes, absolute count 0.41 x10'3 /uL 0.29-0 .99 Not Available [facility] (Lab) [address] [place], [address], 05/27/2021 19:27:24 05/28/19 22 05/27/2021 CBC/C OMPLE TE BLD COUNT W/DIF F eosinophils, absolute count 0.12 x10'3 /uL 0.02-0 .53 Not Available [facility] (Lab) [address] [place], [address], 05/27/2021 19:27:24 05/28/19 22 05/27/2021 CBC/C OMPLE TE BLD COUNT W/DIF F basophils, absolute count 0.06 x10'3 /uL 0.01-0 .08 Not Available [facility] (Lab) [address] [place], [address], 05/27/2021 19:27:24 05/28/19 22 05/27/2021 CBC/C OMPLE TE BLD COUNT W/DIF F immature granulocytes ,absolute 0.01 x10'3 /uL 0.00-0 .05 Not Available [facility] (Lab) [address] [place], [address], 05/27/2021 19:27:24 05/28/19 22 05/27/2021 CBC/C OMPLE TE BLD COUNT W/DIF F nucleated red blood cells 0.0 % -0 Not Available [facility] (Lab) [address] [place], [address], 05/27/2021 19:27:24 05/28/19 22 05/27/2021 CBC/C OMPLE TE BLD COUNT W/DIF F NRBC# 0.00 x10'3 /uL Not Available [facility] (Lab) [address] [place], [address], 05/27/2021 19:27:24 05/29/19 22 MAMMO , scree nat, digit al, bilat eral [facility] [address] [place] [address] [phone] [facility] and[facility] Name: ANGELICA ROMERO Access ion #: [id number] Sex: F : 1955 8 Locati on: MO2 Attend ing Physic kelton: KERRI SENIOR Orderi ng Physic kelton: KERRI SENIOR Exam Date: 05/28/19 22 1:11 PM Exam Name: MG DIGITA L KRAIG BILAT SCREEN Admitt ing Diagno sis(es ): RADIOL OGY REPORT - FINAL EXAM: MG DIGITA L KRAIG BILAT SCREEN HISTOR Y: screen ing mammog meagan COMPAR CAN: 2017 TECHNI QUE: Bilate ral CC and MLO views of the breast s were perfor med. Digita l Mammog nino images were obtain ed. CAD (compu ter assist ed detect ion) was utiliz ed. FINDIN GS: There are scatte red areas of fibrog landul ar densit y. No masses , asymme tries, suspic ious calcif icatio ns, or schuyler ectura l distor tion are seen. Page 1 of 2 [facility] Corwin andrews Name: ANGELICA ROMERO Access ion #: [id number] Sex: F : 1955 8 Exam Date: 05/28/19 22 1:11 PM Exam Name: DIGITA L KRAIG BILAT SCREEN Admitt ing Diagno sis(es ): IMPRES ISMAEL: BIRADS 1: Assess ment comple te. Negati ve. Recomm end annual screen ing mammog nino. Accord ing to the [employer], yearly mammog jelena are recomm ended starti ng at age 40 and contin uing as long as the woman is in good health . Clinic al Breast Exam should be part of the period health exam-a bout every 3 years for women in their 20s and 30s and every year for women 40 and over. Breast self-e xam is an option for women in their 20s. Any breast change noted on the breast self-e xam she would be report ed prompt ly to the [facility] er. A negati ve mammog nino report should not discou rage follow -up or biopsy of a clinic ally signif icant findin g and/or abnorm ality. Dense breast tissue may obscur e small neopla sms. This corwin andrews has been entere d into a mammog nino remind er system with a target date for her next mammog meagan. Create d and electr onical ly signed by: Wai welch MD Signed Date: 05/29/19 5:38 PM (CT) Dictat ed by: Wai welch MD (CT) (CT) Page 2 of 2 [id number] [facility] (Imaging) [address] [place], [address], 05/27/2022 03:34:01 08/12/19 22 08/11/2021 CT, abdom en + pelvi s, w/ contr ast No observ ation record ed. [id number], [place], [address], 05/27/2022 03:34:01 08/21/19 23 06/10/2022 XR, hand, 3 or more view No observ ation record ed. [email or web address] Not Available 07/28 10:52:04 02/16/20 24 02/16/2024 XR, hip + pelvi s, bilat eral, 3 or 4 view No observ ation record ed. [facility] [address], [place], [address], 02/16/2024 16:32:52 02/16/20 24 02/16/2024 XR, knee, 4 or more view No observ ation record ed. [facility] [address], [place], [address], 02/16/2024 16:35:24 02/16/20 24 02/16/2024 XR, knee, 4 or more view No observ ation record ed. [facility] [address], [place], [address], 02/17/2024 12:38:51 Result Notes None recorded. Problems Name Problem SNOMED Code Status Onset Date Resolution Date Notes Provider Name and Address Organization Details Recorded Time Irritable bowel syndrome 57096626 Active Not Available [facility] 3 03:23:28 Benign essential hypertens ion 2101008 Active Not Available [facility] 3 03:23:28 [place] 891523995 Completed Not Available [facility] 3 03:23:28 Pain of right shoulder joint 27336229171 122019 Active 2021 Not Available [facility] 3 03:23:28 Abnormal weight gain 508554302 Active Not Available [facility] 3 03:23:28 Partial thickness rotator cuff tear 101191243 Active 2020 Not Available [facility] 3 03:23:28 Abdominal pain 24492879 Active Not Available [facility] 3 03:23:28 Gastroeso phageal reflux disease 155825105 Active Not Available [facility] 3 03:23:28 Incisiona l hernia 515336032 Active Not Available [facility] 3 03:23:28 External hemorrhoi ds 68897569 Active Not Available [facility] 3 03:23:28 Screening mammograp hy Active 2021 Not Available [facility] 3 03:23:28 Screening for malignant neoplasm of colon Active 2021 Not Available [facility] 3 03:23:28 Myofascia l pain syndrome of neck 619402202 Active 2021 Not Available [facility] 3 03:23:28 Thoracic back pain 231809450 Completed Not Available [facility] 3 03:23:28 Low back pain 117912465 Completed Nancy rose MD [address] [facility], [facility] [address], [place], [address] , [place] - [facility] [employer] [facility] 4 12:22:41 Myofascia l pain 823611157 Active 2021 Not Available [facility] 3 03:23:29 Recurrent dislocati on of shoulder region 80831403 Active Not Available [facility] 3 03:23:29 Current tear of medial cartilage AND/OR meniscus of knee Active Not Available [facility] 3 03:23:29 Knee pain Completed Not Available [facility] 3 03:23:29 Pain in left knee Completed Not Available [facility] 3 03:23:29 Dyslipide aurelia 523592240 Active 2017 Not Available [facility] 3 03:23:29 Migraine 95827108 Active Not Available [facility] 3 03:23:29 Osteoarth ritis 459828854 Active Not Available [facility] 3 03:23:29 Umbilical hernia 460181139 Active Not Available [facility] 3 03:23:29 Hypothyro idism 70719169 Active Not Available [facility] 3 03:23:29 Disorder of rotator cuff 513144361 Active Not Available [facility] 3 03:23:29 Herpes zoster 2921345 Completed 201602/25/2017 Not Available [facility] 3 03:23:30 Bradycard ia 04367978 Active Not Available [facility] 3 03:23:30 Hyperlipi demia 38339603 Active 2021 Not Available [facility] 3 03:23:30 Disorder of bursa of shoulder region 35604573 Active Not Available [facility] 3 03:23:30 Derangeme nt of knee 70446642 Active Not Available [facility] 3 03:23:30 Costal chondriti s 78013939 Active Not Available [facility] 3 03:23:30 Snoring 50582929 Active Not Available [facility] 3 03:23:30 Stress 95753233 Active Not Available [facility] 3 03:23:30 Severe anxiety (panic) 85809944 Active Not Available [facility] 3 03:23:30 Neck pain 61300237 Active 2021 Not Available [facility] 3 03:23:30 Spinal stenosis in cervical region 97862074 Active 2020 Not Available [facility] 3 03:23:31 Uterine leiomyoma 48401557 Active Not Available [facility] 3 03:23:31 Essential hypertens ion 81585946 Active 2023 Nancy rose MD [address], [place], [address] , [facility] 4 09:35:22 Type 2 diabetes mellitus without complicat ion 552913582 Active 2023 Nancy rose MD [address], [place], [address] , [facility] 4 14:18:06 Moderate recurrent major depressio n 15938324 Active 2023 Nancy rose MD [address], [place], [address] , [facility] 4 14:21:05 Chronic obstructi ve pulmonary disease 01711906 Active 2023 Nancy rose MD [address], [place], [address] , [facility] 4 14:22:18 Urinary incontine gae 624339299 Active 2023 Nancy rose MD [address], [place], [address] , [facility] 4 14:45:43 Chronic kidney disease 726533258 Active 2023 Mikel Roberson CMA null, [place] - [facility] [employer] [facility] 4 17:22:04 Low back pain 209930328 Active 2023 Nancy rose MD [address], [place], [address] , [facility] 4 12:22:41 Pain of bilateral knee joints 45426563378 4104 Active 2023 Nancy rose MD [address], [place], [address] , [facility] [employer] [facility] [employer] 4 12:39:26 Bilateral hip joint pain 66814919702 909759 Active 2023 Nancy rose MD [address], [place], [address] , [facility] [employer] [facility] [employer] [facility] 4 12:41:35 Osteoarth ritis of knee 084763212 Active 2023 Mikel Roberson CMA null, [employer] [facility] [employer] [facility] 4 12:35:32 Overactiv e urinary bladder 797080042 Active 2023 James Bob MD [address], [place], [address] , [facility] [employer] [facility] [employer] [facility] [employer] 4 15:51:21 Notes:Some problems listed i n Document: #[id number] could not be added to this patient's chart. Please review this document and add these problems to the patient's chart manually as needed. Problem Notes None recorded. Procedures Surgical History Date Name Laterality Status Provider Name and Address Organization Details Recorded Time 02/02/20 24 Medicare Wellness CPT Code, subsequent completed Nancy Dietz MD [address], [place], [address], [facility] [employer] [facility] 02/02/2024 09:16:34 02/02/20 24 Advanced Care Planning completed Dedrick Mack LPN [facility] [employer] [facility] 02/02/2024 14:35:00 04/09/19 22 hernia repair completed Dedrick Mack LPN [place] [facility] 02/16/2024 12:15:28 12/31/19 18 Date of Last Colonoscopy completed Not Available [facility] 05/27/2022 03:15:37 06/03/19 17 Most Recent Bone Density completed Not Available [facility] 05/27/2022 03:15:37 06/22/19 14 Eri arthrs srg bicp tenodsis completed Not Available [facility] 05/27/2022 03:15:41 06/22/19 14 partial claviculectomy completed Not Available [facility] 05/27/2022 03:15:41 Cholecystectomy completed Not Available [facility] 05/27/2022 03:15:41 Appendectomy completed Not Available [facility] 05/27/2022 03:15:41 Imaging Results Imaging Date Name Status LastModified by Organiz ation Details LastModified Time 08/11/2021 CT, abdomen + pelvis, w/ contrast completed [id number] [facility] [address], [place], [address], 05/27/2022 03:34:01 05/28/2021 MAMMO, screening, digital, bilateral completed [id number] [facility] (Imaging) [address] [facility], [place], [address], 05/27/2022 03:34:01 06/10/2022 XR, hand, 3 or more view completed [email or web address] Information not available 08/20/2022 10:52:04 02/16/2024 XR, hip + pelvis, bilateral, 3 or 4 view active [facility] [address], [place], [address], 02/16/2024 16:32:52 02/16/2024 XR, knee, 4 or more view active [facility] [address], [place], [address], 02/16/2024 16:35:24 02/16/2024 XR, knee, 4 or more view active [facility] [address], [place], [address], 02/17/2024 12:38:51 Procedure Notes None recorded. Medical Equipment None Reported. Allergies No known drug allergies Medications Name Sig Start Date Stop Date Status Note LastModified by Organization Details LastModified Time celecoxib 200 mg capsule 05/27 completed Not Available Not Available Not Available amoxicill in 500 mg capsule Take 1 capsule 3 times a day by oral route for 7 days. 09/18 completed Not Available Not Available Not Available methocarb tiffanie 500 mg tablet 02/25 completed Not Available Not Available Not Available levothyro xine 175 mcg tablet TAKE 1 TABLET BY MOUTH EVERY DAY 2023 active Not Available Not Available Not Avai lable magnesium 500 mg tablet Take 1 tablet every day by oral route. 02/15 completed Not Available Not Available Not Available prednison e 10 mg tablet TAKE 1 TABLET BY MOUTH THREE TIMES DAILY FOR 3 DAYS. THEN 1 TABLET TWICE DAILY FOR 2 DAYS. TAKE 1 TABLET ONCE FOR 1 DAY 07/17 completed Not Available Not Available Not Available atorvasta tin 20 mg tablet Take 1 tablet every day by oral route. 07/15 completed changed to Crestor Not Available Not Available Not Available atorvasta tin 10 mg tablet TK 1 T PO QD active Not Available Not Available No t Available oxybutyni n chloride ER 10 mg tablet,ex tended release 24 hr Take 1 tablet every day by oral route. 2023 active Not Available Not Available Not Avai lable azithromy liza 250 mg tablet TAKE 2 TABLETS BY MOUTH FOR 1 DAY THEN TAKE 1 TABLET BY MOUTH DAILY FOR 4 DAYS DIRECTED 02/01 completed Not Available Not Available Not Available aspirin 325 mg tablet Take 1 tablet every day by oral route. 04/01 completed Not Available Not Available Not Available ibuprofen 800 mg tablet Take 1 tablet 3 times a day by oral route as needed. active Not Available Not Available No t Available tizanidin e 4 mg tablet TAKE 1 TABLET BY MOUTH EVERY DAY NEEDED 10/26 completed Not Available Not Available Not Available benzonata te 200 mg capsule Take 1 capsule twice a day by oral route. active Not Available Not Available No t Available valacyclo vir 1 gram tablet TK 1 T PO Q 12 H 05/28 completed Not Available Not Available Not Available sumatript an 100 mg tablet 02/22 completed Not Available Not Available Not Available hydrocodo ne 5 mg-acetam inophen 325 mg tablet TAKE 1 TABLET BY MOUTH EVERY 6 HOURS NEEDED FOR PAIN CONTROL active Not Available Not Available No t Available Lipitor 80 mg tablet Take 1 tablet every day by oral route for 90 days. 2023 active Not Available Not Available Not Avai lable meloxicam 15 mg tablet TAKE 1 TABLET BY MOUTH EVERY DAY 02/01 completed Not Available Not Available Not Available ondansetr on HCl 4 mg tablet 02/25 completed Not Available Not Available Not Available bupivacai ne HCl 0.5 % (5 mg/mL) injection solution Take 20 mg by injectio n route. 07/17 completed Not Available Not Available Not Available prednison e 20 mg tablet TAKE 2 TABLETS BY MOUTH EVERY DAY FOR 5 DAYS active Not Available Not Available No t Available sertralin e 100 mg tablet Take 1 tablet every day by oral route. active Not Available Not Available No t Available acetamino phen 300 mg-codein e 30 mg tablet 10/26 completed Not Available Not Available Not Available ciproflox acin 500 mg tablet 08/07 completed Not Available Not Available Not Available folic acid 400 mcg tablet Take 1 tablet every day by oral route. 02/15 completed Not Available Not Available Not Available sulfameth oxazole 800 mg-trimet hoprim 160 mg tablet TAKE 1 TABLET BY MOUTH EVERY 12 HOURS FOR 7 DAYS 05/08 completed Not Available Not Available Not Available hydrocodo ne 10 mg-acetam inophen 325 mg tablet 02/22 completed Not Available Not Available Not Available peg-elect rolyte solution 420 gram oral solution 03/26 completed Not Available Not Available Not Available aspirin 81 mg tablet,de layed release TK 1T PO QD 08/13 completed Not Available Not Available Not Available tramadol 50 mg tablet TAKE 1 TABLET BY MOUTH TWICE DAILY 02/01 completed Not Available Not Available Not Available amitripty line 50 mg tablet TAKE 1 TABLET BY MOUTH EVERY DAY AT BEDTIME 02/01 completed Not Available Not Available Not Available zolmitrip rose 5 mg tablet Take 1 tablet by oral route as needed. active Not Available Not Available No t Available amoxicill in 500 mg tablet Take 1 tablet 3 times a day by oral route. 05/27 completed Not Available Not Available Not Available levothyro xine 25 mcg tablet 01/05 completed Not Available Not Available Not Available ketorolac 10 mg tablet 05/28 completed Not Available Not Available Not Available prednison e 10 mg tablets in a dose pack Take 1 tab by mouth, 3 times a day for 3 daysTake 1 tab by mouth 2 times a day for 2 daysTake 1 tab by mouth once a day for 1 day 07/17 completed Not Available Not Available Not Available meloxicam 7.5 mg tablet Take 1 tablet twice a day by oral route as needed for 10 days. 03/03 completed Not Available Not Available Not Available levothyro xine 100 mcg tablet TAKE 1 TABLET BY MOUTH EVERY DAY 02/01 completed Not Available Not Available Not Available losartan 100 mg-hydroc hlorothia zide 25 mg tablet TAKE 1 TABLET BY MOUTH EVERY DAY 01/24 completed Not Available Not Available Not Available amitripty line 25 mg tablet TK 1 T PO QD HS active Not Available Not Available No t Available Lipitor 40 mg tablet Take 1 tablet every day by oral route. 03/03 completed Not Available Not Available Not Available oxycodone -acetamin ophen 10 mg-325 mg tablet 01/05 completed Not Available Not Available Not Available dicyclomi ne 20 mg tablet 03/26 completed Not Available Not Available Not Available Kenalog 10 mg/mL suspensio n for injection In office injectio n administ ered by the provider 07/17 completed [facility]: [phone] Not Available Not Available Not Available dexametha sone 1 mg tablet TK 1 T AT 11 PM AND THE NEXT MORNING GET AN TECHNICAL PRODUCER CORTISOL TEST BEFORE 830 AM 06/18 completed Not Available Not Available Not Available benzonata te 100 mg capsule TAKE 1 CAPSULE BY MOUTH EVERY 8 HOURS NEEDED active Not Available Not Available No t Available hydrocodo ne 7.5 mg-acetam inophen 325 mg tablet TAKE 1 TABLET BY MOUTH EVERY 4 HOURS NEEDED FOR PAIN 05/20 completed Not Available Not Available Not Available cephalexi n 500 mg capsule 02/25 completed Not Available Not Available Not Available pantopraz ole 40 mg tablet,de layed release 01/05 completed Not Available Not Available Not Available levothyro xine 125 mcg tablet TK 1 T PO QD active Not Available Not Available No t Available tobramyci n 0.3 % eye drops 09/09 completed Not Available Not Available Not Available ranitidin e 150 mg tablet Take 1 tablet twice a day by oral route. 05/28 completed Not Available Not Available Not Available diphenhyd ramine 25 mg tablet Take 2 tablets every 4 hours by oral route. 08/07 completed Not Available Not Available Not Available polymyxin B sulfate 10,000 unit-trim ethoprim 1 mg/mL eye drops 07/17 completed Not Available Not Available Not Available orphenadr ine citrate ER 100 mg tablet,ex tended release TAKE 1 TABLET BY MOUTH TWICE DAILY NEEDED active Not Available Not Available No t Available gabapenti n 300 mg capsule 05/28 completed Not Available Not Available Not Available omeprazol e 20 mg capsule,d elayed release TAKE 1 CAPSULE BY MOUTH DAILY FOR 14 DAYS 02/01 completed Not Available Not Available Not Available etodolac 400 mg tablet Take 1 tablet twice a day by oral route. active Not Available Not Available No t Available montel[address] st 10 mg tablet Take 1 tablet every day by oral route. active Not Available Not Available No t Available hydrocodo ne 5 mg-acetam inophen 500 mg tablet 01/05 completed Not Available Not Available Not Available levothyro xine 200 mcg tablet 01/05 completed Not Available Not Available Not Available topiramat e 200 mg tablet TK 1 T PO BID 10/13 completed Not Available Not Available Not Available hydrochlo rothiazid e 25 mg tablet TAKE 1 TABLET BY MOUTH EVERY DAY 2023 active Not Available Not Available Not Avai lable gabapenti n 100 mg capsule 01/05 completed Not Available Not Available Not Available ibuprofen 600 mg tablet 01/31 completed Not Available Not Available Not Available methylpre dnisolone 4 mg tablets in a dose pack uud 04/19 /2021 completed Not Available Not Available Not Available albuterol sulfate HFA 90 mcg/actua tion aerosol inhaler INHALE 2 PUFFS BY MOUTH EVERY 4 HOURS NEEDED 07/17 completed Not Available Not Available Not Available hydrocodo ne 10 mg-acetam inophen 650 mg tablet 01/05 completed Not Available Not Available Not Available ondansetr on 4 mg disintegr ating tablet DISSOLVE 1 TABLET ON THE TONGUE EVERY 8 HOURS NEEDED FOR NAUSEA OR VOMITING 02/15 completed Not Available Not Available Not Available topiramat e 100 mg tablet TAKE 2 TABLETS BY MOUTH DAILY 02/15 completed Stopped by Neurolog ist Not Available Not Available Not Available losartan 100 mg tablet TAKE 1 TABLET BY MOUTH EVERY DAY 2023 active Not Available Not Available Not Avai lable fluticaso ne propionat e 50 mcg/actua tion nasal spray,saúl pension Ed[place]stein 2 sprays every day by intranas al route. active Not Available Not Available No t Available sertralin e 50 mg tablet TAKE 1 TABLET BY MOUTH EVERY DAY 02/01 completed Not Available Not Available Not Available amitripty line 100 mg tablet 01/31 completed Not Available Not Available Not Available doxycycli ne hyclate 100 mg tablet Take 1 tablet twice a day by oral route for 7 days. active Not Available Not Available No t Available brimonidi ne 0.15 % eye drops INSTILL 1 DROP INTO BOTH EYES TWICE DAILY active Not Available Not Available No t Available naproxen 500 mg tablet 02/25 completed Not Available Not Available Not Available levothyro xine 112 mcg tablet TAKE 1 TABLET BY MOUTH DAILY 07/03 completed Not Available Not Available Not Available ezetimibe 10 mg tablet Take 1 tablet(s ) every day by oral route. 2023 active Not Available Not Available Not Avai lable cyclobenz aprine 5 mg tablet TAKE 1 TO 2 TS PO BID PRN 10/26 completed Not Available Not Available Not Available timolol maleate (PF) 0.5 % eye drops in a dropperet te INSTILL 1 DROP IN BOTH EYES TWICE DAILY DIRECTED 07/17 completed Not Available Not Available Not Available rosuvasta tin 20 mg tablet TAKE 1 TABLET BY MOUTH EVERY DAY 02/01 completed Not Available Not Available Not Available bupropion HCl XL 300 mg 24 hr tablet, extended release 01/31 completed Not Available Not Available Not Available Boostrix Tdap 2.5 Lf unit-8 mcg-5 Lf/0.5 mL intramusc ular syringe FPD 02/25 completed Not Available Not Available Not Available losartan 100 mg-hydroc hlorothia zide 12.5 mg tablet 01/05 completed Not Available Not Available Not Available melatonin active Not Available Not Kell ilable Not Available aspirin 81 mg po daily 2021 active Not Available Not Available Not Avai lable vitamin A 01/31 completed Not Available Not Available Not Available levothyro xine 175 MG active Not Available Not Available Not Available biotin 10,000MC G PO QD 2014 active Not Available Not Available Not Avai lable Vitamin D3 6000 IU 03/03 completed Not Available Not Available Not Available 09/26 completed Not Available Not Available Not Available bupropion HCl active Not Available Not Available Not Available black cohosh 01/31 completed Not Available Not Available Not Available Caliente 3 TK 1T PO QD 06/10 completed Not Available Not Available Not Available lidocaine (PF) 10 mg/mL (1 %) injection solution In office injectio n administ ered by the provider 07/15 completed [facility]: [id number] 6-17 Not Available Not Available Not Available cetirizin e 10 mg capsule Take 1 capsule every day by oral route. active Not Available Not Available No t Available Suprep Bowel Prep Kit 17.5 gram-3.13 gram-1.6 gram oral solution 02/22 completed Not Available Not Available Not Available Jardiance 10 mg tablet Take 1 tablet(s ) every day by oral route. 2023 active Not Available Not Available Not Avai lable Fluvirin 1307-4938 45 mcg (15 mcg x 3)/0.5 mL intramusc ular suspensio n active Not Available Not Available Not Available Aimovig Autoinjec tor 140 mg/2 Pack (70 mg/mL) subcutane ous 03/31 completed Not Available Not Available Not Available turmeric 02/15 completed Not Available Not Available Not Available Flucelvax Quad (PF) 60 mcg (15 mcg x 4)/0.5 mL IM syringe active Not Available Not Available Not Available ID NOW COVID-19 Test Kit TEST DIRECTED TODAY 05/20 completed Not Available Not Available Not Available Trelegy Ellipta 200 mcg-62.5 mcg-25 mcg powder for inhalatio n Inhale 1 puff every day by inhalati on route. active Not Available Not Available No t Available [facility] COVID-19 Vaccine (PF) 30 mcg/0.3 mL IM susp (purple) ADMINIST ER 0.3ML IN THE MUSCLE DIRECTED 06/06 completed Not Available Not Available Not Available Qulipta 60 mg tablet Take 1 tablet every day by oral route. active Not Available Not Available No t Available Vitals Date Recorded Body height Body mass index (BMI) Body weight Body temperature Heart rate Respiratory rate Oxygen saturation Oxygen saturation in Arterial blood by Pulse oximetry Systolic blood pressure Diastolic blood pressure Provider Name and Address Organization Details Last Updated DateTime 4 170.18 cm 1.3 kg/m2 3628.74 g 98 [degF] 74 /min 16 /min 95 % 95 % 122 mm[Hg] 80 mm[Hg] Dedrick Mack LPN [employer] 4 14:15:50 Date Recorded Body height Body mass index (BMI) Body weight Body temperature Heart rate Respiratory rate Oxygen saturation Oxygen saturation in Arterial blood by Pulse oximetry Systolic blood pressure Diastolic blood pressure Provider Name and Address Organization Details Last Updated DateTime 4 170.18 cm 32.9 kg/m2 04071.4 g 97.8 [degF] 55 /min 16 /min 96 % 96 % 132 mm[Hg] 76 mm[Hg] Dedrick Mack LPN [employer] 4 12:10:37 Date Recorded Body height Heart rate Body temperature Body mass index (BMI) Body weight Oxygen saturation Oxygen saturation in Arterial blood by Pulse oximetry Systolic blood pressure Diastolic blood pressure Provider Name and Address Organization Details Last Updated DateTime 4 170.18 cm 76 /min 97.9 [degF] 33.5 kg/m2 81044.7 7 g 97 % 97 % 145 mm[Hg] 91 mm[Hg] Lynn Chan CMA [place] [facility] 14:45:23 Date Recorded Body mass index (BMI) Body height Body weight Provider Name and Address Organization Details Last Updated DateTime 06/19/2021 34.1 kg/m2 170.18 cm 29431.14 g Not Available [facility] 05/27/2022 03:20:49 Date Recorded Body mass index (BMI) Body height Body weight Provider Name and Address Organization Details Last Updated DateTime 07/17/2021 34.3 kg/m2 170.18 cm 93891.73 g Not Available [facility] Care 05/27/2022 03:20:49 Social History Question Answer Notes LastModified by Organization Details LastModified Time Tobacco Smoking Status Former Smoker Not Available [facility] 05/27/2022 03:10:06 Do You Have An Advance Directive? No MIGRATION.0301 [id number] Information not available 05/27/2022 What Is Your Level Of Alcohol Consumption? Moderate MIGRATION.0301 [id number] Information not available 05/27/2022 How Many Years Have You Consumed Alcohol? 40 [email or web address] Information not available 02/02/2024 Do You Wear A Helmet When Biking? No Does Not Back [email or web address] Information not available 02/02/2024 Are You Blind Or Do You Have Difficulty Seeing? No MIGRATION.0301 310038 Information not available 05/27/2022 Is Blood Transfusion Acceptable In An Emergency? Yes Information not available 02/02/2024 What Is Your Level Of Caffeine Consumption? Moderate MIGRATION.0301 [id number] Information not available 05/27/2022 How Much Tobacco Do You Chew? None MIGRATION.0301 256063 Information not available 05/27/2022 In The 14 Days Before Symptom Onset, Have You Had Close Contact With A Laboratory-conf irmed COVID-19 While That Case Was Ill? No MIGRATION.0301 551441 Information not available 05/27/2022 In The 14 Days Before Symptom Onset, Have You Had Close Contact With A Person Who Is Under Investigation For COVID-19 While That Person Was Ill? No MIGRATION.0301 795415 Information not available 05/27/2022 Are You Currently Employed? No [email or web address] Information not available 02/02/2024 Are You Deaf Or Do You Have Serious Difficulty Hearing? Yes Patient States She Has Bilateral Hearing Aids Ordered. [email or web address] Information not available 02/02/2024 What Type Of Diet Are You Following? REGULAR MIGRATION.030 216316 Information not available 05/27/2022 Which Illicit Or Recreational Drugs Have You Used? None MIGRATION.030 557333 Information not available 05/27/2022 Do You Or Have You Ever Used E-cigarettes Or Vape? Never Used Electronic Cigarettes MIGRATION.030 910414 Information not available 05/27/2022 What Is The Highest Grade Or Level Of School You Have Completed Or The Highest Degree You Have Received? [id number] MIGRATION.030 692512 Information not available 05/27/2022 What Is Your Occupation? Disabled MIGRATION.030 936266 Information not available 05/27/2022 How Many Days Of Moderate To Strenuous Exercise, Like A Brisk Walk, Did You Do In The Last 7 Days? -1 [email or web address] Information not available 02/02/2024 Have There Been Any Changes To Your Family Or Social Situation? No MIGRATION.030 206808 Information not available 05/27/2022 What Is The Fluoride Status Of Your Home? Unknown MIGRATION.030 500419 Information not available 05/27/2022 When Did You Quit Smoking? 18+yearssincelastc igarette MIGRATION.030 303384 Information not available 05/27/2022 Are There Any Guns Present In Your Home? No MIGRATION.0301 185647 Information not available 05/27/2022 Do You Use Insect Repellent Routinely? No MIGRATION.030 397417 Information not available 05/27/2022 [facility] M[facility].030 685118 Information not available 05/27/2022 Presence Of Domestic Violence No Information not available 02/02/2024 Guns Present In The Home? No Information not available 02/02/2024 Are You Able To Care For Yourself? Yes [email or web address] Information not available 02/02/2024 Are You Blind Or Do Yo Have Difficulty Seeing? No [email or web address] Information not available 02/02/2024 Are You Deaf Or Do You Have Serious Difficulty Hearing? Yes Information not available 02/02/2024 General Stress Level? High [email or web address] Information not available 02/02/2024 Live Alone Of With Others? Alone Information not available 02/02/2024 Do You Have A Medical Power Of Algology Teacher? No MIGRATION.0301 161978 Information not available 05/27/2022 What Was The Date Of Your Most Recent Tobacco Screening? 05/20/2021 MIGRATION.0301 743464 Information not available 05/27/2022 How Many Children Do You Have? 2 [email or web address] Information not available 02/02/2024 What Is Your Current Pack Years? [email or web address] Information not available 02/02/2024 Have You Ever Been Counseled For Unhealthy Alcohol Use? No MIGRATION.0301 403208 Information not available 05/27/2022 Do You Have Any Pets? Yes Dod, Cat [email or web address] Information not available 02/02/2024 What Is Your Relationship Status? MIGRATION.0301 354569 Information not available 05/27/2022 Do You Use Your Seat Belt Or Car Seat Routinely? Yes MIGRATION.0301 460297 Information not available 05/27/2022 Are You Sexually Active? No [email or web address] Information not available 02/02/2024 Do You Have Smoke And Carbon Monoxide Detectors In Your Home? Yes MIGRATION.0301 678667 Information not available 05/27/2022 At What Age Did You Start Smoking Tobacco? 17 [email or web address] Information not available 02/02/2024 Are You Passively Exposed To Smoke? No MIGRATION.0301 732319 Information not available 05/27/2022 Do You Or Have You Ever Used Smokeless Tobacco? Never Used Smokeless Tobacco MIGRATION.0301 040346 Information not available 05/27/2022 Are There Any Smokers In Your House? No MIGRATION.0301 265899 Information not available 05/27/2022 How Much Tobacco Do You Smoke? No MIGRATION.0301 403242 Information not available 05/27/2022 What Types Of Sporting Activities Do You Participate In? None MIGRATION.0301 106433 Information not available 05/27/2022 Do You Feel Stressed (tense, Restless, Nervous, Or Anxious, Or Unable To Sleep At Night)? [id number] MIGRATION.0301 418617 Information not available 05/27/2022 Do You Use Any Illicit Or Recreational Drugs? No MIGRATION.0301 699382 Information not available 05/27/2022 Do You Use Sunscreen Routinely? No MIGRATION.0301 296769 Information not available 05/27/2022 Has Tobacco Cessation Counseling Been Provided? No MIGRATION.0301 067524 Information not available 05/27/2022 How Many Years Have You Smoked Tobacco? 30 [email or web address] Information not available 02/02/2024 Have You Recently Traveled Abroad? No MIGRATION.0301 202569 Information not available 05/27/2022 Do You Have Any Dietary Restrictions? No MIGRATION.0301 258966 Information not available 05/27/2022 Do You Or Have You Ever Used Any Other Forms Of Tobacco Or Nicotine? No MIGRATION.0301 071752 Information not available 05/27/2022 How Many Days In The Past Year Have You Consumed 4 Or More Drinks? -1 [email or web address] Information not available 02/02/2024 Sex: Female Functional Status Question Answer Note LastModified by Organizat ion Details LastModified Time Do you have difficulty walking or climbing stairs? Yes knee pain MIGRATION.028513 4915 Information not available 05/27/2022 Do you have transportation difficulties? No MIGRATION.729180 3426 Information not available 05/27/2022 Are you able to walk? YESWOREST MIGRATION.332432 0632 Information not available 05/27/2022 Do you have difficulty doing errands alone? No MIGRATION.589187 9100 Information not available 05/27/2022 Are you able to care for yourself? Yes MIGRATION.660489 1246 Information not available 05/27/2022 Do you have difficulty dressing or bathing? No MIGRATION.625199 3549 Information not available 05/27/2022 What is your exercise level? None MIGRATION.759787 2151 Information not available 05/27/2022 Mental Status Question Answer Note LastModified by Organization D etails LastModified Time Do you have difficulty concentrating, remembering or making decisions? Yes [email or web address] Information no t available 02/02/2024 Family History Relationship Description Onset Age of this Age Resolved Age Notes LastModified by Organization Details LastModified Time Father Migraine MIGRATION.727 [id number] Not available 05/27/2022 03:15:47 Father Diabetes mellitus MIGRATION.181 1702373 Not available 05/27/2022 03:15:47 Father Heart disease MIGRATION.592 9564830 Not available 05/27/2022 03:15:47 Father Family history of stroke MIGRATION.320 9088314 Not available 05/27/2022 03:15:47 Mother Diabetes mellitus MIGRATION.733 5740837 Not available 05/27/2022 03:15:47 Mother Cardiomegaly MIGRATION.0 30 0912974 Not available 05/27/2022 03:15:47 Mother Heart disease MIGRATION.325 6525419 Not available 05/27/2022 03:15:47 Mother Family history of stroke MIGRATION.670 1065879 Not available 05/27/2022 03:15:47 Sister Malignant tumor of ovary 55 MIGRATION.590 7675651 Not available 05/27/2022 03:15:47 Sister Diabetes mellitus MIGRATION.174 1917293 Not available 05/27/2022 03:15:47 Sister Family history of malignant neoplasm MIGRATION.280 7727979 Not available 05/27/2022 03:15:47 Brother Diabetes mellitus MIGRATION.328 8785136 Not available 05/27/2022 03:15:47 Brother Family history of stroke MIGRATION.212 0784211 Not available 05/27/2022 03:15:47 Notes:blood clots in legs/claudio ngs Medical History Condition Response NERVE DISEASE N BLINDNESS N RHEUMATIC FEVER N KIDNEY STONES N BLADDER PROBLEMS N OTHER # 1 Y POLIO N LUNG DISEASE/DISORDER N COPD N RADIATION / CHEMOTHERAPY N Other # 2 N BLOOD DISEASES N SURGERY N EAR OR HEARING PROBLEMS N MUMPS N DEPRESSION (INCLUDING POST ) N BOWEL PROBLEMS Y STROKE/TIA N ULCERS N BENIGN PROSTATIC HYPERPLASIA N MEASLES N MYOCARDIAL INFARCTION N OBESITY N GERD/NAUSEA Y ANEURYSM N URINARY/BLADDER/KIDNEY PROBLEMS N CORONARY ARTERY DISEASE (CAD) N INPATIENT PSYCH CARE N ADDICTION CONCERNS N Impotence N ENDOMETRIOSIS N USE OF BLOOD THINNERS N SKIN PROBLEMS N GASTROINTESTINAL DISORDER N PERIPHERAL VASCULAR DISEASE N MUSCLE,JOINT OR BONE PROBLEMS N GASTROINTESTINAL BLEEDING N BLOOD CLOTS N ASTHMA N CATARACTS N ERECTILE DYSFUNCTION N VARICOSITIES N GI PROBLEMS N Low Testosterone N INFERTILITY N AIDS/HIV N LIVER DISEASE N MALE HYPOGONADISM N HYPERTENSION Y Deficiency N ANXIETY DISORDER Y BLOOD TRANSFUSION N ANEMIA/BLOOD DISORDER N CHRONIC EAR INFECTIONS N BRONCHITIS N TUBERCULOSIS N GLAUCOMA N FOOT PROBLEM N DIVERTICULITIS N CHICKENPOX N SLEEP APNEA N INFECTIOUS DISEASE N HEART ARRHYTHMIA N PROSTATE N INSOMNIA N HIGH CHOLESTEROL / HYPERLIPIDEMIA Y EYE PROBLEMS N HYPERTHYROIDISM N NEUROLOGICAL PROBLEMS N EDEMA N CHRONIC PAIN SYNDROME N HYPOTHYROIDISM Y CAROTID BLOCKAGE N CONSTIPATION N BACK / NECK PROBLEMS Y ATHEROSCLEROSIS N BREAST PROBLEMS N DIALYSIS N ECZEMA N OSTEOPOROSIS Y ARTHRITIS Y APPENDICITIS N DIABETES, TYPE Y BAD TEETH N ENT N HEARTBURN / REFLUX N AUTISM SPECTRUM DISORDER (ASD) N HEPATITIS / LIVER DISEASE N PULMONARY DISEASE N GOUT N SLEEP DISORDER N ALZHEIMER'S DISEASE N Brain Problems N HERPES N DEMENTIA N SEIZURES/EPILEPSY N HEADACHES/MIGRAINES N VASCULAR DISEASE N PACEMAKER N Blood Disorder N DIZZINESS N KIDNEY DISEASE N HEART DISEASE/HEART PROBLEMS N MULTIPLE SCLEROSIS N CARDIAC ARRHYTHMIA N CANCER: SPECIFY N ANESTHESIA COMPLICATIONS N Gall Stones N ATRIAL FIBRILLATION N PULMONARY EMBOLISM N AUTOIMMUNE DISEASE N Gynecological History Statement/Question Response Abnormal Pap Y Date of Last Pap 08/07/2014 Date of Last Mammogram 11/12/2017 Current Control Method Menopause Date of Last Colonoscopy 12/30/2017 Most Recent Bone Density 06/02/2016 Obstetrics History GPAL:G 4 P 2 0 2 0 Type Value Full Term 2 Spontaneous 2 Total 4 Immunizations Vaccine Type Date Status Note Provider Nam e and Address Organization Details Recorded Time Influenza, MDCK, quadrivalent, PF 0 completed Deann Tom RMMatilda trivedi, [facility] 02/02/2024 14:42:38 COVID-19, mRNA, LNP-S, PF, 100 mcg/0.5mL dose or 50 mcg/0.25mL dose 2 completed Deann Tom RMA null, [employer] [facility] 02/02/2024 14:42:38 COVID-19, mRNA, LNP-S, PF, 30 mcg/0.3 mL dose 1 completed Deann Tom RMA shikha, [employer] [facility] 02/02/2024 14:42:38 Pneumococcal conjugate PCV20, polysaccharide [id number] conjugate, adjuvant, PF 4 completed JESSY Paula, [facility] 02/02/2024 14:42:38 RSV, recombinant, protein subunit RSVpreF, adjuvant reconstituted, 0.5 mL, PF 4 completed Deann Tom RMA null, [facility] 02/02/2024 14:42:38 Tdap 7 completed JESSY Paula, [facility] 02/02/2024 14:42:38 Influenza, split virus, trivalent, preservative 7 completed Deann Tom RMA null, [facility] 02/02/2024 14:42:38 COVID-19, mRNA, LNP-S, PF, 100 mcg/0.5mL dose or 50 mcg/0.25mL dose 1 completed Deann Tom RMA null, [facility] 02/02/2024 14:42:38 Tdap 7 completed Not Available [facility] 05/27/2022 03:33:18 Influenza, split virus, quadrivalent, preservative 7 completed Deann Tom RMA null, [facility] 02/02/2024 14:42:38 COVID-19, mRNA, LNP-S, PF, 30 mcg/0.3 mL dose 1 completed Deann Tom RMA null, [facility] 02/02/2024 14:42:38 COVID-19, mRNA, LNP-S, PF, 30 mcg/0.3 mL dose 1 completed Deann Tom RMA null, [facility] 02/02/2024 14:42:38 Influenza, split virus, trivalent, PF 4 completed Deann Tom RMA null, [facility] 02/02/2024 14:42:38 Influenza, high-dose, trivalent, PF 4 completed [facility] Dietz [facility] [address] [facility] [address], [place], [address], [facility] 02/14/2024 18:47:56 Past Encounters Encounter ID Performer Location Encounter Start Date Encounter Closed Date Diagnosis/Indication Diagnosis SNOMED-CT Code Diagnosis ICD10 Code [id number] [facility] [address] [place] [address] 06/10/2020 00:00:00 06/29/2020 12:41:12 [id number] [facility] [address] [place] [address] 07/02/2020 00:00:00 07/02/2020 16:17:18 [id number] [facility] [address] [place] [address] Ave[address] [address] 07/15/2020 00:00:00 07/20/2020 22:43:23 [id number] [facility] [address] [place] [address] 07/30/2020 00:00:00 07/30/2020 15:01:19 [id number] [facility] [address] [facility] [address] [address] 09/09/2020 00:00:00 09/22/2020 16:07:48 [id number] [facility] [address] [place] [address] 09/09/2020 00:00:00 09/09/2020 10:59:03 [id number] [facility] [address] [place] [address] 10/08/2020 00:00:00 10/08/2020 14:52:39 [id number] [facility] [address] [facility] [address] [place] [address] 10/28/2020 00:00:00 11/17/2020 17:11:55 [id number] [facility] [address] [place] [address] 10/31/2020 00:00:00 10/31/2020 14:12:27 [id number] [facility] [address] [place] [address] 12/31/2020 00:00:00 12/31/2020 15:16:20 [id number] [facility] [address] [place] [address] 01/21/2021 00:00:00 01/21/2021 15:01:50 [id number] [facility] [address] [place] [address] 02/18/2021 00:00:00 02/18/2021 15:36:42 [id number] [facility] [address] [place] [address] 03/27/2021 00:00:00 03/27/2021 11:35:22 [id number] [facility] [address] [place] [address] 05/08/2021 00:00:00 05/08/2021 11:57:20 [id number] [facility] [address] [place] [address] [facility] [place] [address] 05/20/2021 00:00:00 05/20/2021 21:26:32 [id number] [facility] [address] [place] [address] 06/19/2021 00:00:00 06/19/2021 14:45:55 [id number] [facility] [address] [place] [address] 07/17/2021 00:00:00 07/17/2021 16:02:52 [id number] Nancy rose MD [facility] [address] [facility] [place] [address] 02/02/2024 13:51:20 02/02/2024 15:05:43 Adult health examination 892290346 Z00.00 Screening for disorder 987482258 Z13.9 Screening - NAD 59322451 3 Z13.9 Screening for osteoporosis 581859761 Z13.820 Gynecologi c examination 28805707 Z01.419 Screening mammography 24 699210 Z12.31 Hypothyroidism 39867653 E03.9 Essential hypertension 95172072 I10 Hyperlipidemia 88382515 E78.5 Type 2 omar betes mellitus without complication 771043308 E11.9 Migraine 38904907 G43.90 9 Moderate r ecurrent major depression 77098829 F33.1 Chronic ob structive pulmonary disease 75241553 J44.9 Urinary incontinence 165 394278 R32 Administra tion of influenza vaccine 15162410 Z23 [id number] Nancy rose MD [facility] [address] [place] [address] 02/16/2024 11:55:47 02/16/2024 12:42:54 Pain of bilateral knee joints 8989601038 99600 M25.561 M25.562 Bilateral hip joint pain [id number] 6317456 M25.551 M25.552 Essential hypertension 72266899 I10 Hyperlipidemia 85763888 E78.5 Type 2 omar betes mellitus without complication 361462808 E11.9 Chronic ki dney disease 472268081 N18.9 Screening - NAD 04089893 3 Z13.9 Screening for osteoporosis 772384024 Z13.820 Gynecologi c examination 29762161 Z01.419 Screening mammography 24 644748 Z12.31 Hypothyroidism 57807418 E03.9 Migraine 43506555 G43.90 9 Moderate r ecurrent major depression 04366678 F33.1 Chronic ob structive pulmonary disease 67448518 J44.9 Urinary incontinence 165 174396 R32 [id number] James Bob MD [facility] [address], [address] [place] [address] 03/03/2024 14:31:06 03/03/2024 15:14:47 Urinary incontinence 212430408 R32 Overactive urinary bladder 316591428 N32.81 Health Concerns Section Related Observation LastModified by Organization Detai ls LastModified Time None Recorded Concern Status LastModified by Organization Details LastModified Time None Recorded Advance Directives Directive N: Payers Encounter Date Sequence Insurance Name Policy Number Policy Ji Covered Member ID Ji Member ID Guarantor Name 02/02/2024 1 [place] Angelica Romero [id number] Angelica Romero 02/02/2024 2 [place] 111 Angelica Romero [id number] Angelica Romero 02/16/2024 1 [place] Angel[place] Romero [id number] Angelica Romero 02/16/2024 2 [facility] 111 Angelica Romero [id number] Angelica Romero 03/03/2024 1 [place] Angelica Romero [id number] Angelica Romero 03/03/2024 2 [facility] ([place]) 111 Angelica Romero [id number] Angelica Romero Notes Date Note Type Note Provider Name and Address Organization Details Recorded Time 06/19/2021 text/html ShoulderReported bypatient.Location:an terior; lateral Quality:throbbing; frequent Severity:moderate Timing:recurrent; occasional Duration:continuous since onset Aggravating Factors:pushing/pulli ng; throwing; damp weather Alleviating Factors:rest; elevation; stretching; NSAIDs Associated Symptoms:no weakness; no numbness; no tingling; no redness; no ecchymosis; no catching/locking; no popping/clicking; no buckling; no grinding; no instability; no radiation down arm; no drainage; no fever; no chills; no weight loss; no change in bowel/bladder habits;swelling;warmt h Not Available [employer] 06/19/2021 14:45:55 02/02/2024 text/html OV 02/02/2024:He re to establish care Present Hx:HTNHLDDMIIDepressi onMigraine Here to discuss above and to get labs Nancy Dietz MD [address] [place] [address], [place] [address], [place], [address], [employer] 02/14/2024 18:48:44 02/16/2024 text/html OV 02/02/2024:He re to establish care Present Hx:HTNHLDDMIIDepressi onMigraine Here to discuss above and to get labs OV 02/16/2024: Here for her f/u and to discuss her labs, she has also fallen 2 days ago in her home, she tripped on 'stuff' at the floor, landed on the L side of the hip and knee, now has aminah knee pain and hip pain that radiates to the L side of the back, she feels that the L hip has a swelling also Nancy Dietz MD [address], [facility] [address], [place], [address], [employer] 02/16/2024 14:13:56 03/03/2024 text/html this patient has been having severe incontinence has been going on for at least 3 years. She wears 5 protective underwear pads per day. She is overweight she needs to lose 50 lb. She is a diabetic. She has not been treated for any medications for overactive bladder She says it is more of an urgency is not stress incontinence She denies any burning with urination James Bob MD [address], [facility] [address], [place], [address], [employer] 03/03/2024 15:53:27 OBGyn Episode No OBEpisode recorded.
--- OUTSIDE RECORDS SUMMARY | 2024-03-15 14:54 | XMS_ITS | Continuity of Care Document ---
Author Organization [place] [facility], [facility] [place] Address [address], [address] [place] [address] Care Team Providers Care Television Director Name Role Phone NANCY DIETZ Primary Care Provider [phone] JAILYN SENIOR Primary Care Provider JAILYN SENIOR Referring Provider DESTINI RUSSO Manufacturing Sr Engineer [phone] Assessment No assessment recorded. Plan of Treatment Reminders Order Date Submit Date Provider Last Modified By Organization Details Last Modified Time Details Appointments TeleMedic ine 2024 03:30P Benjamin Bob MD Not available Not available Not available Any 15 2024 09:45A M Nancy rudolph MD Not available Not available Not available Lab None recorded. Referral None recorded. Procedures None recorded. Surgeries None recorded. Imaging None recorded. Medication Orders oxybutyni n chloride ER 10 mg tablet,ex tended release 24 hr [address] [facility] [address] [place], [address], 03/03/2024 15:53:31 Patient TargetsNo targets recorded. Patient Instructions Encounter Date Encounter Id Patient Instructions Last Modified By Organization Details Last Modified Time 03/03/2024 [id number] 1. I will send a prescription for oxybutynin XL 10 mg dispensed 90 with 3 refills 2. She needs a telehealth in about 2-3 weeks to discuss results Not available 03/03/2024 15:52:00 Reason for Referral None Reported. Results Created Date Observation Date Name Description Value Unit Range Abnormal Flag Note LastModifiedBy Organization Detail LastModifiedTime 02/16/20 24 02/16/2024 XR, hip + pelvi s, bilat eral, 3 or 4 view No observ ation record ed. [facility] [address], [place], [address], 02/16/2024 16:32:52 02/16/20 24 02/16/2024 XR, knee, 4 or more view No observ ation record ed. [facility] [address], [place], [address], 02/16/2024 16:35:24 02/16/20 24 02/16/2024 XR, knee, 4 or more view No observ ation record ed. [address] [facility] [address], [place], [address], 02/17/2024 12:38:51 Result Notes None recorded. Problems Name Problem SNOMED Code Status Onset Date Resolution Date Notes Provider Name and Address Organization Details Recorded Time Irritable bowel syndrome 95880680 Active Not Available [facility] 3 03:23:28 Benign essential hypertens ion 5508741 Active Not Available [facility] 3 03:23:28 Burn 502439098 Completed Not Available [facility] 3 03:23:28 Pain of right shoulder joint 52974531629 050243 Active 2021 Not Available [facility] 3 03:23:28 Abnormal weight gain 705291923 Active Not Available [facility] 3 03:23:28 Partial thickness rotator cuff tear 260050672 Active 2020 Not Available [facility] 3 03:23:28 Abdominal pain 78800082 Active Not Available [facility] 3 03:23:28 Gastroeso phageal reflux disease 801014435 Active Not Available [facility] 3 03:23:28 Incisiona l hernia 529313412 Active Not Available [facility] 3 03:23:28 External hemorrhoi ds 13760697 Active Not Available [facility] 3 03:23:28 Screening mammograp hy Active 2021 Not Available [facility] 3 03:23:28 Screening for malignant neoplasm of colon Active 2021 Not Available [facility] 3 03:23:28 Myofascia l pain syndrome of neck 310507571 Active 2021 Not Available [facility] 3 03:23:28 Thoracic back pain 532048697 Completed Not Available [facility] 3 03:23:28 Low back pain 582527710 Completed Nancy rose MD [address] [place] [address], [address] , [facility] [employer] [facility] 4 12:22:41 Myofascia l pain 864102749 Active 2021 Not Available [facility] 3 03:23:29 Recurrent dislocati on of shoulder region 61214612 Active Not Available [facility] 3 03:23:29 Current tear of medial cartilage AND/OR meniscus of knee Active Not Available [facility] 3 03:23:29 Knee pain Completed Not Available [facility] 3 03:23:29 Pain in left knee Completed Not Available [facility] 3 03:23:29 Dyslipide aurelia 787224215 Active 2017 Not Available [facility] 3 03:23:29 Migraine 84144281 Active Not Available [facility] 3 03:23:29 Osteoarth ritis 532762394 Active Not Available [facility] 3 03:23:29 Umbilical hernia 093261348 Active Not Available [facility] 3 03:23:29 Hypothyro idism 50935831 Active Not Available [facility] 3 03:23:29 Disorder of rotator cuff 986851394 Active Not Available [facility] 3 03:23:29 Herpes zoster 9268974 Completed 201602/25/2017 Not Available [facility] 3 03:23:30 Bradycard ia 62294542 Active Not Available [facility] 3 03:23:30 Hyperlipi demia 38755335 Active 2021 Not Available [facility] 3 03:23:30 Disorder of bursa of shoulder region 22758832 Active Not Available [facility] 3 03:23:30 Derangeme nt of knee 29791496 Active Not Available [facility] 3 03:23:30 Costal chondriti s 79752412 Active Not Available [facility] 3 03:23:30 Snoring 12702497 Active Not Available [facility] 3 03:23:30 Stress 99402524 Active Not Available [facility] 3 03:23:30 Severe anxiety (panic) 92922667 Active Not Available [facility] 3 03:23:30 Neck pain 00674998 Active 2021 Not Available [facility] 3 03:23:30 Spinal stenosis in cervical region 34664155 Active 2020 Not Available [facility] 3 03:23:31 Uterine leiomyoma 64765226 Active Not Available [facility] 3 03:23:31 Essential hypertens ion 36249092 Active 2023 Nancy rose MD [address], [place], [address] , [facility] 4 09:35:22 Type 2 diabetes mellitus without complicat ion 791422571 Active 2023 Nancy rose MD [address], [place], [address] , [facility] 4 14:18:06 Moderate recurrent major depressio n 09603164 Active 2023 Nancy rose MD [address], [place], [address] , [facility] 4 14:21:05 Chronic obstructi ve pulmonary disease 81090172 Active 2023 Nancy rose MD [address], [place], [address] , [facility] 4 14:22:18 Urinary incontine ake 070080504 Active 2023 Nancy rose MD [address], [place], [address] , [facility] 4 14:45:43 Chronic kidney disease 104632986 Active 2023 Mikel Roberson CMA null, [place] [facility] 4 17:22:04 Low back pain 266784192 Active 2023 Nancy rose MD [address], [place], [address] , [facility] 4 12:22:41 Pain of bilateral knee joints 55579198170 4104 Active 2023 Nancy rose MD [address], [place], [address] , [facility] 4 12:39:26 Bilateral hip joint pain 87423600257 958664 Active 2023 Nancy rose MD [address], [place], [address] , [facility] 4 12:41:35 Osteoarth ritis of knee 788360663 Active 2023 Mikel Roberson CMA null, [place] [facility] 4 12:35:32 Overactiv e urinary bladder 651569352 Active 2023 James Bob MD [address], [place], [address] , [facility] 4 15:51:21 Notes:Some problems listed i n Document: #[id number] could not be added to this patient's chart. Please review this document and add these problems to the patient's chart manually as needed. Problem Notes None recorded. Procedures Surgical History Date Name Laterality Status Provider Name and Address Organization Details Recorded Time 02/02/20 24 Medicare Wellness CPT Code, subsequent completed Nancy Dietz MD [address], [place], [address], [facility] 02/02/2024 09:16:34 02/02/20 24 Advanced Care Planning completed Dedrick Mack LPN [facility] 02/02/2024 14:35:00 04/09/19 22 hernia repair completed Dedrick Mack LPN [facility] 02/16/2024 12:15:28 12/31/19 18 Date of Last Colonoscopy completed Not Available [facility] 05/27/2022 03:15:37 06/03/19 17 Most Recent Bone Density completed Not Available [facility] 05/27/2022 03:15:37 06/22/19 14 Eri arthrs srg bicp tenodsis completed Not Available [facility] 05/27/2022 03:15:41 06/22/19 14 partial claviculectomy completed Not Available [facility] 05/27/2022 03:15:41 Cholecystectomy completed Not Available [facility] 05/27/2022 03:15:41 Appendectomy completed Not Available [facility] 05/27/2022 03:15:41 Imaging Results None recorded. Procedure Notes None recorded. Medical Equipment None [...] administ ered by the provider 07/17 completed [facility]: [id number] 07-16 Not Available Not Available Not Available dexametha sone 1 mg tablet TK 1 T AT 11 PM AND THE NEXT MORNING GET AN MEDICAL SCIENTIST CORTISOL TEST BEFORE 830 AM 06/18 completed [...] mg tablets in a dose pack uud 07/15 completed Not Available Not Available Not Available [...] e 50 mcg/actua tion nasal spray,saúl pension [place] 2 sprays every day by intranas al [...] completed Not Available Not Available Not Available [place] 3 TK 1T PO QD 06/10 completed Not Available Not Available Not Available lidocaine (PF) 10 mg/mL (1 %) injection solution In office injectio n administ ered by the provider 07/15 completed [facility]: 0409-427 6-17 Not Available Not Available Not [...] Available Not Available Not Avai lable Fluvirin [id number] 45 mcg (15 mcg x 3)/0.5 mL [...] Not Available Not Available No t Available [employer] ([employer]) COVID-19 Vaccine (PF) 30 mcg/0.3 mL IM susp (purple) ADMINIST ER 0.3ML IN THE MUSCLE DIRECTED 06/06 completed Not Available Not Available Not Available Qulipta 60 mg tablet Take 1 tablet every day by oral route. active Not Available Not Available No t Available Vitals Date Recorded Body height Heart rate Body temperature Body mass index (BMI) Body weight Oxygen saturation Oxygen saturation in Arterial blood by Pulse oximetry Systolic blood pressure Diastolic blood pressure Provider Name and Address Organization Details Last Updated DateTime 4 170.18 cm 76 /min 97.9 [degF] 33.5 kg/m2 55922.7 7 g 97 % 97 % 145 mm[Hg] 91 mm[Hg] Lynn Chan CMA [place] [facility] [place] [employer] [facility] 4 14:45:23 Social History Question Answer Notes LastModified by Organization Details LastModified Time Tobacco Smoking Status Former Smoker Not Available [facility] 05/27/2022 03:10:06 Do You Have An Advance Directive? No MIGRATION.0301 [id number] Information not available 05/27/2022 What Is Your Level Of Alcohol Consumption? Moderate MIGRATION.0301 592725 Information not available 05/27/2022 How Many Years Have You Consumed Alcohol? 40 [email or web address] Information not available 02/02/2024 Do You Wear A Helmet When Biking? No Does Not Back [email or web address] Information not available 02/02/2024 Are You Blind Or Do You Have Difficulty Seeing? No MIGRATION.0301 445282 Information not available 05/27/2022 Is Blood Transfusion Acceptable In An Emergency? Yes [email or web address] Information not available 02/02/2024 What Is Your Level Of Caffeine Consumption? Moderate MIGRATION.0301 131300 Information not available 05/27/2022 How Much Tobacco Do You Chew? None MIGRATION.0301 117750 Information not available 05/27/2022 In The 14 Days Before Symptom Onset, Have You Had Close Contact With A Laboratory-conf irmed COVID-19 While That Case Was Ill? No MIGRATION.0301 035917 Information not available 05/27/2022 In The 14 Days Before Symptom Onset, Have You Had Close Contact With A Person Who Is Under Investigation For COVID-19 While That Person Was Ill? No MIGRATION.0301 883518 Information not available 05/27/2022 Are You Currently Employed? No Information not available 02/02/2024 Are You Deaf Or Do You Have Serious Difficulty Hearing? Yes Patient States She Has Bilateral Hearing Aids Ordered. [email or web address] Information not available 02/02/2024 What Type Of Diet Are You Following? REGULAR MIGRATION.0301 130625 Information not available 05/27/2022 Which Illicit Or Recreational Drugs Have You Used? None MIGRATION.0301 029577 Information not available 05/27/2022 Do You Or Have You Ever Used E-cigarettes Or Vape? Never Used Electronic Cigarettes MIGRATION.0301 262310 Information not available 05/27/2022 What Is The Highest Grade Or Level Of School You Have Completed Or The Highest Degree You Have Received? [id number] MIGRATION.0301 977751 Information not available 05/27/2022 What Is Your Occupation? Disabled MIGRATION.030 957510 Information not available 05/27/2022 How Many Days Of Moderate To Strenuous Exercise, Like A Brisk Walk, Did You Do In The Last 7 Days? -1 [email or web address] Information not available 02/02/2024 Have There Been Any Changes To Your Family Or Social Situation? No MIGRATION.0301 271901 Information not available 05/27/2022 What Is The Fluoride Status Of Your Home? Unknown MIGRATION.0301 976272 Information not available 05/27/2022 When Did You Quit Smoking? 18+yearssincelastc igarette MIGRATION.030 308275 Information not available 05/27/2022 Are There Any Guns Present In Your Home? No MIGRATION.0301 925893 Information not available 05/27/2022 Do You Use Insect Repellent Routinely? No MIGRATION.0301 015683 Information not available 05/27/2022 Where Do You Live? SingleLevelHouse MIGRATION.030 151507 Information not available 05/27/2022 Presence Of Domestic Violence No [email or web address] Information not available 02/02/2024 Guns Present In The Home? No Information not available 02/02/2024 Are You Able To Care For Yourself? Yes Information not available 02/02/2024 Are You Blind Or Do Yo Have Difficulty Seeing? No [email or web address] Information not available 02/02/2024 Are You Deaf Or Do You Have Serious Difficulty Hearing? Yes [email or web address] Information not available 02/02/2024 General Stress Level? High [email or web address] Information not available 02/02/2024 Live Alone Of With Others? Alone Information not available 02/02/2024 Do You Have A Medical Power Of Nursing Instructor? No MIGRATION.0301 857629 Information not available 05/27/2022 What Was The Date Of Your Most Recent Tobacco Screening? 05/20/2021 MIGRATION.0301 668697 Information not available 05/27/2022 How Many Children Do You Have? 2 Information not available 02/02/2024 What Is Your Current Pack Years? 10packyears [email or web address] Information not available 02/02/2024 Have You Ever Been Counseled For Unhealthy Alcohol Use? No MIGRATION.0301 636777 Information not available 05/27/2022 Do You Have Any Pets? Yes Dod, Cat [email or web address] Information not available 02/02/2024 What Is Your Relationship Status? MIGRATION.0301 794905 Information not available 05/27/2022 Do You Use Your Seat Belt Or Car Seat Routinely? Yes MIGRATION.0301 010095 Information not available 05/27/2022 Are You Sexually Active? No [email or web address] Information not available 02/02/2024 Do You Have Smoke And Carbon Monoxide Detectors In Your Home? Yes MIGRATION.0301 906904 Information not available 05/27/2022 At What Age Did You Start Smoking Tobacco? 17 [email or web address] Information not available 02/02/2024 Are You Passively Exposed To Smoke? No MIGRATION.0301 749215 Information not available 05/27/2022 Do You Or Have You Ever Used Smokeless Tobacco? Never Used Smokeless Tobacco MIGRATION.0301 472128 Information not available 05/27/2022 Are There Any Smokers In Your House? No MIGRATION.0301 702870 Information not available 05/27/2022 How Much Tobacco Do You Smoke? No MIGRATION.0301 957517 Information not available 05/27/2022 What Types Of Sporting Activities Do You Participate In? None MIGRATION.0301 330001 Information not available 05/27/2022 Do You Feel Stressed (tense, Restless, Nervous, Or Anxious, Or Unable To Sleep At Night)? AB12617-4 MIGRATION.0301 836477 Information not available 05/27/2022 Do You Use Any Illicit Or Recreational Drugs? No MIGRATION.0301 263484 Information not available 05/27/2022 Do You Use Sunscreen Routinely? No MIGRATION.0301 669935 Information not available 05/27/2022 Has Tobacco Cessation Counseling Been Provided? No MIGRATION.0301 939747 Information not available 05/27/2022 How Many Years Have You Smoked Tobacco? 30 [email or web address] Information not available 02/02/2024 Have You Recently Traveled Abroad? No MIGRATION.0301 393605 Information not available 05/27/2022 Do You Have Any Dietary Restrictions? No MIGRATION.0301 168662 Information not available 05/27/2022 Do You Or Have You Ever Used Any Other Forms Of Tobacco Or Nicotine? No MIGRATION.0301 606339 Information not available 05/27/2022 How Many Days In The Past Year Have You Consumed 4 Or More Drinks? -1 [email or web address] Information not available 02/02/2024 Sex: Female Functional Status Question Answer Note LastModified by Organizat ion Details LastModified Time Do you have difficulty walking or climbing stairs? Yes knee pain MIGRATION.776493 1345 Information not available 05/27/2022 Do you have transportation difficulties? No MIGRATION.207335 7509 Information not available 05/27/2022 Are you able to walk? YESWOREST MIGRATION.457592 2731 Information not available 05/27/2022 Do you have difficulty doing errands alone? No MIGRATION.037059 2136 Information not available 05/27/2022 Are you able to care for yourself? Yes MIGRATION.512020 6456 Information not available 05/27/2022 Do you have difficulty dressing or bathing? No MIGRATION.198010 7266 Information not available 05/27/2022 What is your exercise level? None MIGRATION.193154 6418 Information not available 05/27/2022 Mental Status Question Answer Note LastModified by Organization D etails LastModified Time Do you have difficulty concentrating, remembering or making decisions? Yes Information no t available 02/02/2024 Family History Relationship Description Onset Age of this Age Resolved Age Notes LastModified by Organization Details LastModified Time Father Migraine MIGRATION.134 7864078 Not available 05/27/2022 03:15:47 Father Diabetes mellitus MIGRATION.986 7505421 Not available 05/27/2022 03:15:47 Father Heart disease MIGRATION.941 8579158 Not available 05/27/2022 03:15:47 Father Family history of stroke MIGRATION.494 9631960 Not available 05/27/2022 03:15:47 Mother Diabetes mellitus MIGRATION.320 4083435 Not available 05/27/2022 03:15:47 Mother Cardiomegaly MIGRATION.0 30 5778612 Not available 05/27/2022 03:15:47 Mother Heart disease MIGRATION.155 0864071 Not available 05/27/2022 03:15:47 Mother Family history of stroke MIGRATION.269 2821590 Not available 05/27/2022 03:15:47 Sister Malignant tumor of ovary 55 MIGRATION.290 8777189 Not available 05/27/2022 03:15:47 Sister Diabetes mellitus MIGRATION.853 9371833 Not available 05/27/2022 03:15:47 Sister Family history of malignant neoplasm MIGRATION.767 2259035 Not available 05/27/2022 03:15:47 Brother Diabetes mellitus MIGRATION.963 1564507 Not available 05/27/2022 03:15:47 Brother Family history of stroke MIGRATION.875 1796667 Not available 05/27/2022 03:15:47 Notes:blood clots in [...] GLAUCOMA N FOOT PROBLEM N DIVERTICULITIS N SLEEP APNEA N CHICKENPOX N INFECTIOUS DISEASE N PROSTATE N HEART ARRHYTHMIA N INSOMNIA N HIGH CHOLESTEROL / HYPERLIPIDEMIA [...] N ALZHEIMER'S DISEASE N Brain Problems N DEMENTIA N HERPES N SEIZURES/EPILEPSY N HEADACHES/MIGRAINES N VASCULAR DISEASE N PACEMAKER N Blood Disorder N DIZZINESS N HEART DISEASE/HEART PROBLEMS N KIDNEY DISEASE N MULTIPLE SCLEROSIS N CANCER: SPECIFY N CARDIAC ARRHYTHMIA N ANESTHESIA COMPLICATIONS N ATRIAL FIBRILLATION N Gall Stones N PULMONARY EMBOLISM N AUTOIMMUNE DISEASE N [...] MDCK, quadrivalent, PF 0 completed Deann Tom RMA shikha, [facility] 02/02/2024 14:42:38 COVID-19, mRNA, LNP-S, PF, 100 mcg/0.5mL dose or 50 mcg/0.25mL dose 2 completed Deann Tom RMMatilda trivedi, [facility] 02/02/2024 14:42:38 COVID-19, mRNA, LNP-S, PF, 30 mcg/0.3 mL dose 1 completed Deann Tom RMA shikha, [facility] 02/02/2024 14:42:38 Pneumococcal conjugate PCV20, polysaccharide [id number] conjugate, adjuvant, PF 4 completed JESSY Paula, [facility] 02/02/2024 14:42:38 RSV, recombinant, protein subunit RSVpreF, adjuvant reconstituted, 0.5 mL, PF 4 completed Deann Tom RMA null, [facility] 02/02/2024 14:42:38 Tdap 7 completed JESSY Paula, [facility] 02/02/2024 14:42:38 Influenza, split virus, trivalent, preservative 7 completed JESSY Paula, [facility] 02/02/2024 14:42:38 COVID-19, mRNA, LNP-S, PF, 100 mcg/0.5mL dose or 50 mcg/0.25mL dose 1 completed JESSY Paula, [facility] [employer] [facility] 02/02/2024 14:42:38 Tdap 7 completed Not Available [facility] 05/27/2022 03:33:18 Influenza, split virus, quadrivalent, preservative 7 completed Deann Tom RMA null, [facility] [employer] [facility] 02/02/2024 14:42:38 COVID-19, mRNA, LNP-S, PF, 30 mcg/0.3 mL dose 1 completed Deann Tom RMA null, [facility] [employer] [facility] 02/02/2024 14:42:38 COVID-19, mRNA, LNP-S, PF, 30 mcg/0.3 mL dose 1 completed Deann Tom RMA shikha, [facility] [employer] [facility] 02/02/2024 14:42:38 Influenza, split virus, trivalent, PF 4 completed Deann Tom RMA null, [facility] [employer] [facility] 02/02/2024 14:42:38 Influenza, high-dose, trivalent, PF 4 completed Nancy Dietz MD [address] [place] [address], [address], [facility] [employer] [facility] 02/14/2024 18:47:56 Past Encounters Encounter ID Performer Location Encounter Start Date Encounter Closed Date Diagnosis/Indication Diagnosis SNOMED-CT Code Diagnosis ICD10 Code [id number] Nancy rose MD [facility] [address] [place] [address] 02/02/2024 13:51:20 02/02/2024 15:05:43 Adult health examination 547000467 Z00.00 Screening for disorder 141240825 Z13.9 Screening - NAD 96477241 3 Z13.9 Screening for osteoporosis 782161041 Z13.820 Gynecologi c examination 63732900 Z01.419 Screening mammography 24 500263 Z12.31 Hypothyroidism 84755439 E03.9 Essential hypertension 24375971 I10 Hyperlipidemia 77869920 E78.5 Type 2 omar betes mellitus without complication 557725147 E11.9 Migraine 83169047 G43.90 9 Moderate r ecurrent major depression 98710210 F33.1 Chronic ob structive pulmonary disease 73305622 J44.9 Urinary incontinence 165 734886 R32 Administra tion of influenza vaccine 75274438 Z23 [id number] Nancy rose MD [facility] [place] [place] Primary Care [facility] [address] [facility] [address] [place] [address] 02/16/2024 11:55:47 02/16/2024 12:42:54 Pain of bilateral knee joints 7351639032 72196 M25.561 M25.562 Bilateral hip joint pain 9784278122 3340220 M25.551 M25.552 Essential hypertension 66317880 I10 Hyperlipidemia 35344542 E78.5 Type 2 omar betes mellitus without complication 493113327 E11.9 Chronic ki dney disease 796848528 N18.9 Screening - NAD 97279180 3 Z13.9 Screening for osteoporosis 855565562 Z13.820 Gynecologi c examination 20047229 Z01.419 Screening mammography 24 424660 Z12.31 Hypothyroidism 47501477 E03.9 Migraine [id number] G43.90 9 Moderate r ecurrent major depression [id number] F33.1 Chronic ob structive pulmonary disease [id number] J44.9 Urinary incontinence [id number] R32 [id number] James Bob MD [facility] [place] [facility] [address], [address] [place] [address] 03/03/2024 14:31:06 03/03/2024 15:14:47 Urinary incontinence [id number] R32 Overactive urinary bladder [id number] N32.81 Health Concerns Section Related Observation LastModified by Organization Detai ls LastModified Time None Recorded Concern Status LastModified by Organization Details LastModified Time None Recorded Payers Encounter Date Sequence Insurance Name Policy Number Policy Ji Covered Member ID Ji Member ID Guarantor Name 03/03/2024 1 [place] Angelica Cowan [id number] Angelica Cowan 03/03/2024 2 [facility] [employer] PROGRAM (PPO) [id number] Angelica Cowan [id number] Angelica Cowan Notes Date Note Type Note Provider Name and Address Organization Details Recorded Time 03/03/2024 text/html this patient has been having [...] any burning with urination James Bob MD [address] [place] [address], [place] [address], [place], [address], [facility] 03/03/2024 15:53:27 OBGyn Episode No OBEpisode recorded.
--- OUTSIDE RECORDS SUMMARY | 2024-03-15 14:55 | XMS_ITS | Encounter Summary ---
Author Organization [facility] Address [address] [place] [address] Care Team Providers Care Bundles Hanger Name Role Phone Marcelino Ahn MD Primary Care Provider [phone] Reason for Visit * Reason Comments Refill Request Encounter Details Date Type Department Care Team (Late st Contact Info) Description 06/10/2019 Refill [facility] - Orthopedics [address] [place] [phone] Jeremiah Bryson MD [address] [place] [address] Refill Request Social History Tobacco Use Types Packs/Day Years Used Date Smoking Tobacco: Former Cigarettes Smokeless Tobacco: Never Sex and Gender Information Value Date Recorded Sex Assigned at Not on file Gender Identity Not on file Sexual Orientation Not on file documented as of this encounter Plan of Treatment Not on file documented as of this encounter Visit Diagnoses Diagnosis Lumbar spondylosis Lumbosacral spondylosis without myelopathy Spondylolisthesis, lumbar region 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
--- OUTSIDE RECORDS SUMMARY | 2024-03-15 14:55 | XMS_ITS | Continuity of Care Document ---
Author Organization [place] [facility] Address [address] [facility] [address] [place] [address] Care Team Providers Care Sleever Name Role Phone NANCY DIETZ Primary Care Provider JAILYN SENIOR Primary Care Provider JAILYN SENIOR Referring Provider DESTINI RUSSO Deli Cutter Slicer [phone] Assessment Encounter Date Assessment Date Assessment LastModified [...] Not available Not available Not available Lab lipid panel, serum 2023 024 [email or web address] [facility] (Lab), [address] [place], [address], 03/09/2024 14:12:48 CBC w/ auto diff 2023 024 [email or web address] [facility] (Lab), [address] [place], [address], 03/09/2024 14:12:48 TSH, serum or plasma [address] (Lab), [address] [place], [address], 03/09/2024 14:12:48 CMP, serum or plasma [address] [facility] (Lab), [address] [place], [address], 03/03/2024 18:39:13 vitamin D, 25-hydrox y, total, serum [address] (Lab), [address] [place], [address], 03/09/2024 14:12:49 glycohemo globin, total, blood 2023 024 [email or web address] [facility] (Lab), [address] [place], [address], 02/17/2024 16:33:56 microalbu min, urine [address] [facility] (Lab), [address] [place], [address], 03/03/2024 19:42:53 Referral gynecolog ist referral - Please call patient to schedule. 2023 024 [email or web address] Clair Patrick MD, [address], [place], [address], 02/21/2024 16:53:28 pulmonolo gist referral - Please call patient to schedule. 2023 024 Annette Jorgensen SUPERVISOR FISHING[employer], [address] [facility], [address], [place], [address], 02/21/2024 16:53:29 psychiatr ist referral - Please call patient to schedule. 2023 [email or web address] Satya Parsons MD, [address], [address], [place], [address], 02/21/2024 16:53:30 nephrolog ist referral 2023 Emanuel Mccormack MD (Nephrology, [address], [address], [place], [address], 02/21/2024 16:54:29 urologist referral - Please call patient to schedule. 2023 [email or web address] James Bob, [address] [facility], [facility] [address], [address], 02/21/2024 16:53:29 podiatris t referral - Please call patient to schedule. 2023 Vivek GARNERM, [address] [facility], [facility] [address], [place], [address], 02/21/2024 16:53:29 Procedures None recorded. Surgeries None recorded. Imaging MAMMO, screening , digital, bilateral - Please call patient to schedule. [address] ([facility]), [address] [place], [address], 02/17/2024 18:13:52 XR, hip + pelvis, bilateral , 3 or 4 view - Stat hold and call Dr Melba teixeira 2023 [facility], [address], [place], [address], 02/16/2024 16:32:52 DEXA, axial skeleton [address] ([facility]), [address] [place], [address], 02/17/2024 18:13:33 XR, knee, 4 or more view - Stat hold and call Dr Melba teixeira 2023 [facility], [address], [address], [address], 02/16/2024 16:35:24 Medication Orders meloxicam 7.5 mg tablet 2023 024 edmar [facility] [address] [place], [address], 03/03/2024 14:50:53 Lipitor 80 mg tablet 2023 024 [facility] [address], [address] [place], [address], 02/16/2024 12:48:16 Patient TargetsNo targets recorded. Patient Instructions Encounter Date Encounter Id Patient Instructions Last Modified By Organization Details Last Modified Time 02/16/2024 [id number] diabetic eye exam* ATHENAFAX Not available 02/17/2024 17:40:31 Reason for Referral Lip Reading Teacher Referral for Ch ronic kidney disease Referring Physician: Nancy Dietz, Internal Medicine, Encounter Date: 02/16/2024 Business Development Manager Referral for Gy necologic examination Please call patient to schedule. Referring Physician: Nancy Dietz Internal Medicine, Encounter Date: 02/16/2024 Manufacturing Scheduler Referral for Type 2 diabetes mellitus without complication Please call patient to schedule. Referring Physician: Nancy Dietz Internal Medicine, Encounter Date: 02/16/2024 Urologist Referral for Urina ry incontinence Please call patient to schedule. Referring Physician: Nancy Dietz Internal Medicine, Encounter Date: 02/16/2024 Cooler Supervisor Referral for C hronic obstructive pulmonary disease Please call patient to schedule. Referring Physician: Nancy Dietz Internal Medicine, Encounter Date: 02/16/2024 Psychiatrist Referral for Mo derate recurrent major depression Please call patient to schedule. Referring Physician: Nancy Dietz, Internal Medicine, Encounter Date: 02/16/2024 Results Created Date Observation Date Name Description Value Unit Range Abnormal Flag Note LastModifiedBy Organization Detail LastModifiedTime 02/16/20 24 02/16/2024 XR, hip + pelvi s, bilat eral, 3 or 4 view No observ ation record ed. [facility] [address], [place], [address], 02/16/2024 16:32:52 02/16/20 24 02/16/2024 XR, knee, 4 or more view No observ ation record ed. [facility] [address], [place], [address], 02/16/2024 16:35:24 02/16/20 24 02/16/2024 XR, knee, 4 or more view No observ ation record ed. [email or web address] [facility] [address], [place], [address], 02/17/2024 12:38:51 Result Notes None recorded. Problems Name Problem SNOMED Code Status Onset Date Resolution Date Notes Provider Name and Address Organization Details Recorded Time Irritable bowel syndrome 40384705 Active Not Available [facility] 3 03:23:28 Benign essential hypertens ion 8708857 Active Not Available [facility] 3 03:23:28 Burn 185115965 Completed Not Available [facility] 3 03:23:28 Pain of right shoulder joint 60645086874 640835 Active 2021 Not Available [facility] 3 03:23:28 Abnormal weight gain 060490898 Active Not Available [facility] 3 03:23:28 Partial thickness rotator cuff tear 867522147 Active 2020 Not Available [facility] 3 03:23:28 Abdominal pain 31046838 Active Not Available [facility] 3 03:23:28 Gastroeso phageal reflux disease 178287267 Active Not Available [facility] 3 03:23:28 Incisiona l hernia 928965016 Active Not Available [facility] 3 03:23:28 External hemorrhoi ds 56334691 Active Not Available [facility] 3 03:23:28 Screening mammograp hy Active 2021 Not Available [facility] 3 03:23:28 Screening for malignant neoplasm of colon Active 2021 Not Available [facility] 3 03:23:28 Myofascia l pain syndrome of neck 822129165 Active 2021 Not Available [facility] 3 03:23:28 Thoracic back pain 331592067 Completed Not Available [facility] 3 03:23:28 Low back pain 246943471 Completed Nancy rose MD [address] [place] [address], [address], [address] , [facility] 4 12:22:41 Myofascia l pain 764004951 Active 2021 Not Available [facility] 3 03:23:29 Recurrent dislocati on of shoulder region 92671547 Active Not Available [facility] 3 03:23:29 Current tear of medial cartilage AND/OR meniscus of knee Active Not Available [facility] 3 03:23:29 Knee pain Completed Not Available [facility] 3 03:23:29 Pain in left knee Completed Not Available [facility] 3 03:23:29 Dyslipide aurelia 409844264 Active 2017 Not Available [facility] 3 03:23:29 Migraine 21255933 Active Not Available [facility] 3 03:23:29 Osteoarth ritis 335810613 Active Not Available [facility] 3 03:23:29 Umbilical hernia 332589353 Active Not Available [facility] 3 03:23:29 Hypothyro idism 22254306 Active Not Available [facility] 3 03:23:29 Disorder of rotator cuff 080096858 Active Not Available [facility] 3 03:23:29 Herpes zoster 1956939 Completed 201602/25/2017 Not Available [facility] 3 03:23:30 Bradycard ia 69304214 Active Not Available [facility] 3 03:23:30 Hyperlipi demia 08181802 Active 2021 Not Available [facility] 3 03:23:30 Disorder of bursa of shoulder region 47324154 Active Not Available [facility] 3 03:23:30 Derangeme nt of knee 44152622 Active Not Available [facility] 3 03:23:30 Costal chondriti s 70804525 Active Not Available [facility] 3 03:23:30 Snoring 81106107 Active Not Available [facility] 3 03:23:30 Stress 97105187 Active Not Available [facility] 3 03:23:30 Severe anxiety (panic) 32863003 Active Not Available [facility] 3 03:23:30 Neck pain 50637830 Active 2021 Not Available [facility] 3 03:23:30 Spinal stenosis in cervical region 14943041 Active 2020 Not Available [facility] 3 03:23:31 Uterine leiomyoma 66415322 Active Not Available [facility] 3 03:23:31 Essential hypertens ion 77906536 Active 2023 Nancy rose MD [address], [address], [place], [address] , [employer] [facility] [employer] 4 09:35:22 Type 2 diabetes mellitus without complicat ion 335011891 Active 2023 Nancy rose MD [address], [address], [place], [address] , [facility] [employer] 4 14:18:06 Moderate recurrent major depressio n 26590623 Active 2023 Nancy rose MD [address], [address], [place], [address] , [facility] 4 14:21:05 Chronic obstructi ve pulmonary disease 17904895 Active 2023 Nancy rose MD [address], [address], [place], [address] , [facility] 4 14:22:18 Urinary incontine kse 390277530 Active 2023 Nancy rose MD [address], [address], [place], [address] , [facility] 4 14:45:43 Chronic kidney disease 668464347 Active 2023 Mikel Roberson CMA null, [facility] 4 17:22:04 Low back pain 334185831 Active 2023 Nancy rose MD [address], [address], [place], [address] , [facility] 4 12:22:41 Pain of bilateral knee joints 94275707448 4104 Active 2023 Nancy rose MD [address], [address], [place], [address] , [facility] 4 12:39:26 Bilateral hip joint pain 25574326395 625389 Active 2023 Nancy rose MD [address], [address], [place], [address] , [facility] 4 12:41:35 Osteoarth ritis of knee 148898899 Active 2023 Mikel Roberson CMA null, [place] [facility] 4 12:35:32 Overactiv e urinary bladder 100570594 Active 2023 James Bob MD [address], [place], [address] , [employer] 15:51:21 Notes:Some problems listed i n Document: #[id number] could not be added to this patient's chart. Please review this document and add these problems to the patient's chart manually as needed. Problem Notes None recorded. Procedures Surgical History Date Name Laterality Status Provider Name and Address Organization Details Recorded Time 02/02/20 24 Medicare Wellness CPT Code, subsequent completed Nancy Dietz MD [address], [place], [address], [employer] 02/02/2024 09:16:34 02/02/20 24 Advanced Care Planning completed Dedrick Mack LPN [employer] 02/02/2024 14:35:00 04/09/19 22 hernia repair completed Dedrick Mack LPN [employer] 02/16/2024 12:15:28 12/31/19 18 Date of Last Colonoscopy completed Not Available [facility] 05/27/2022 03:15:37 06/03/19 17 Most Recent Bone Density completed Not Available [facility] 05/27/2022 03:15:37 06/22/19 14 Eri arthrs srg bicp tenodsis completed Not Available [facility] 05/27/2022 03:15:41 06/22/19 14 partial claviculectomy completed Not Available [facility] 05/27/2022 03:15:41 Cholecystectomy completed Not Available [facility] 05/27/2022 03:15:41 Appendectomy completed Not Available [facility] 05/27/2022 03:15:41 Imaging Results None recorded. Procedure [...] administ ered by the provider 07/[address] [facility]: [id number] 4-20 Not Available Not Available Not Available dexametha sone 1 mg tablet TK 1 T AT 11 PM AND THE NEXT MORNING GET AN SPEEDOMETER MECHANIC CORTISOL TEST BEFORE 830 AM 06/18 completed [...] e 50 mcg/actua tion nasal spray,saúl pension Stirum 2 sprays every day by intranas al [...] completed Not Available Not Available Not Available [place] 3 TK 1T PO QD 06/10 completed Not Available Not Available Not Available lidocaine (PF) 10 mg/mL (1 %) injection solution In office injectio n administ ered by the provider 07/[address] [facility]: 0409-427 09-12 Not Available Not Available Not Available cetirizin [...] Available Not Available Not Avai lable Fluvirin 8749-1636 45 mcg (15 mcg x 3)/0.5 mL [...] Not Available Not Available No t Available [facility] Vaccine (PF) 30 mcg/0.3 mL IM [...] Updated DateTime 4 170.18 cm 32.9 kg/m2 01103.4 g 97.8 [degF] 55 /min 16 /min 96 % 96 % 132 mm[Hg] 76 mm[Hg] Dedrick Mack LPN [place] [facility] [employer] [facility] [employer] 4 12:10:37 Social History Question Answer Notes LastModified by Organization Details LastModified Time Tobacco Smoking Status Former Smoker Not Available [facility] 05/27/2022 03:10:06 Do You Have An Advance Directive? No MIGRATION.0301 [id number] Information not available 05/27/2022 What Is Your Level Of Alcohol Consumption? Moderate MIGRATION.0301 602957 Information not available 05/27/2022 How Many Years Have You Consumed Alcohol? 40 [email or web address] Information not available 02/02/2024 Do You Wear A Helmet When Biking? No Does Not Back [email or web address] Information not available 02/02/2024 Are You Blind Or Do You Have Difficulty Seeing? No MIGRATION.0301 523753 Information not available 05/27/2022 Is Blood Transfusion Acceptable In An Emergency? Yes [email or web address] Information not available 02/02/2024 What Is Your Level Of Caffeine Consumption? Moderate MIGRATION.0301 697829 Information not available 05/27/2022 How Much Tobacco Do You Chew? None MIGRATION.0301 694610 Information not available 05/27/2022 In The 14 Days Before Symptom Onset, Have You Had Close Contact With A Laboratory-conf irmed COVID-19 While That Case Was Ill? No MIGRATION.0301 841080 Information not available 05/27/2022 In The 14 Days Before Symptom Onset, Have You Had Close Contact With A Person Who Is Under Investigation For COVID-19 While That Person Was Ill? No MIGRATION.0301 210291 Information not available 05/27/2022 Are You Currently Employed? No [email or web address] Information not available 02/02/2024 Are You Deaf Or Do You Have Serious Difficulty Hearing? Yes Patient States She Has Bilateral Hearing Aids Ordered. [email or web address] Information not available 02/02/2024 What Type Of Diet Are You Following? REGULAR MIGRATION.030 857061 Information not available 05/27/2022 Which Illicit Or Recreational Drugs Have You Used? None MIGRATION.030 171334 Information not available 05/27/2022 Do You Or Have You Ever Used E-cigarettes Or Vape? Never Used Electronic Cigarettes MIGRATION.030 101338 Information not available 05/27/2022 What Is The Highest Grade Or Level Of School You Have Completed Or The Highest Degree You Have Received? [id number] MIGRATION.030 157809 Information not available 05/27/2022 What Is Your Occupation? Disabled MIGRATION.030 510827 Information not available 05/27/2022 How Many Days Of Moderate To Strenuous Exercise, Like A Brisk Walk, Did You Do In The Last 7 Days? -1 [email or web address] Information not available 02/02/2024 Have There Been Any Changes To Your Family Or Social Situation? No MIGRATION.030 077773 Information not available 05/27/2022 What Is The Fluoride Status Of Your Home? Unknown MIGRATION.030 716830 Information not available 05/27/2022 When Did You Quit Smoking? 16+yearssincelastc igarette MIGRATION.030 904062 Information not available 05/27/2022 Are There Any Guns Present In Your Home? No MIGRATION.0301 833128 Information not available 05/27/2022 Do You Use Insect Repellent Routinely? No MIGRATION.0301 958458 Information not available 05/27/2022 Where Do You Live? SingleLevelHouse MIGRATION.030 977866 Information not available 05/27/2022 Presence Of Domestic Violence No Information not available 02/02/2024 Guns Present In The Home? No [email or web address] Information not available 02/02/2024 Are You Able To Care For Yourself? Yes [email or web address] Information not available 02/02/2024 Are You Blind Or Do Yo Have Difficulty Seeing? No [email or web address] Information not available 02/02/2024 Are You Deaf Or Do You Have Serious Difficulty Hearing? Yes [email or web address] Information not available 02/02/2024 General Stress Level? High [email or web address] Information not available 02/02/2024 Live Alone Of With Others? Alone [email or web address] Information not available 02/02/2024 Do You Have A Medical Power Of Building Construction Professor? No MIGRATION.0301 846511 Information not available 05/27/2022 What Was The Date Of Your Most Recent Tobacco Screening? 05/20/2021 MIGRATION.0301 204326 Information not available 05/27/2022 How Many Children Do You Have? 2 [email or web address] Information not available 02/02/2024 What Is Your Current Pack Years? [email or web address] Information not available 02/02/2024 Have You Ever Been Counseled For Unhealthy Alcohol Use? No MIGRATION.0301 450713 Information not available 05/27/2022 Do You Have Any Pets? Yes Dod, Cat [email or web address] Information not available 02/02/2024 What Is Your Relationship Status? MIGRATION.0301 388912 Information not available 05/27/2022 Do You Use Your Seat Belt Or Car Seat Routinely? Yes MIGRATION.0301 554203 Information not available 05/27/2022 Are You Sexually Active? No [email or web address] Information not available 02/02/2024 Do You Have Smoke And Carbon Monoxide Detectors In Your Home? Yes MIGRATION.0301 433958 Information not available 05/27/2022 At What Age Did You Start Smoking Tobacco? 17 [email or web address] Information not available 02/02/2024 Are You Passively Exposed To Smoke? No MIGRATION.0301 561474 Information not available 05/27/2022 Do You Or Have You Ever Used Smokeless Tobacco? Never Used Smokeless Tobacco MIGRATION.0301 225132 Information not available 05/27/2022 Are There Any Smokers In Your House? No MIGRATION.0301 550955 Information not available 05/27/2022 How Much Tobacco Do You Smoke? No MIGRATION.0301 425078 Information not available 05/27/2022 What Types Of Sporting Activities Do You Participate In? None MIGRATION.0301 489290 Information not available 05/27/2022 Do You Feel Stressed (tense, Restless, Nervous, Or Anxious, Or Unable To Sleep At Night)? [id number] MIGRATION.0301 064969 Information not available 05/27/2022 Do You Use Any Illicit Or Recreational Drugs? No MIGRATION.0301 401885 Information not available 05/27/2022 Do You Use Sunscreen Routinely? No MIGRATION.0301 904852 Information not available 05/27/2022 Has Tobacco Cessation Counseling Been Provided? No MIGRATION.0301 618776 Information not available 05/27/2022 How Many Years Have You Smoked Tobacco? 30 [email or web address] Information not available 02/02/2024 Have You Recently Traveled Abroad? No MIGRATION.0301 364838 Information not available 05/27/2022 Do You Have Any Dietary Restrictions? No MIGRATION.0301 300115 Information not available 05/27/2022 Do You Or Have You Ever Used Any Other Forms Of Tobacco Or Nicotine? No MIGRATION.0301 546028 Information not available 05/27/2022 How Many Days In The Past Year Have You Consumed 4 Or More Drinks? -1 [email or web address] Information not available 02/02/2024 Sex: Female Functional Status Question Answer Note LastModified by Organizat ion Details LastModified Time Do you have difficulty walking or climbing stairs? Yes knee pain MIGRATION.203963 6662 Information not available 05/27/2022 Do you have transportation difficulties? No MIGRATION.251593 8222 Information not available 05/27/2022 Are you able to walk? YESWOREST MIGRATION.106908 2618 Information not available 05/27/2022 Do you have difficulty doing errands alone? No MIGRATION.972142 2035 Information not available 05/27/2022 Are you able to care for yourself? Yes MIGRATION.356680 8268 Information not available 05/27/2022 Do you have difficulty dressing or bathing? No MIGRATION.544653 0114 Information not available 05/27/2022 What is your exercise level? None MIGRATION.066965 1202 Information not available 05/27/2022 Mental Status Question Answer Note LastModified by Organization D etails LastModified Time Do you have difficulty concentrating, remembering or making decisions? Yes [email or web address] Information no t available 02/02/2024 Family History Relationship Description Onset Age of this Age Resolved Age Notes LastModified by Organization Details LastModified Time Father Migraine MIGRATION.785 8009579 Not available 05/27/2022 03:15:47 Father Diabetes mellitus MIGRATION.071 0444516 Not available 05/27/2022 03:15:47 Father Heart disease MIGRATION.412 2096700 Not available 05/27/2022 03:15:47 Father Family history of stroke MIGRATION.390 0404153 Not available 05/27/2022 03:15:47 Mother Diabetes mellitus MIGRATION.515 2046048 Not available 05/27/2022 03:15:47 Mother Cardiomegaly MIGRATION.0 30 1144191 Not available 05/27/2022 03:15:47 Mother Heart disease MIGRATION.100 9108255 Not available 05/27/2022 03:15:47 Mother Family history of stroke MIGRATION.829 4296204 Not available 05/27/2022 03:15:47 Sister Malignant tumor of ovary 55 MIGRATION.369 7574343 Not available 05/27/2022 03:15:47 Sister Diabetes mellitus MIGRATION.844 3029608 Not available 05/27/2022 03:15:47 Sister Family history of malignant neoplasm MIGRATION.750 2276577 Not available 05/27/2022 03:15:47 Brother Diabetes mellitus MIGRATION.353 1753783 Not available 05/27/2022 03:15:47 Brother Family history of stroke MIGRATION.454 8622732 Not available 05/27/2022 03:15:47 Notes:blood clots in [...] Time Influenza, MDCK, quadrivalent, PF 0 completed JESSY Paula null, [facility] [employer] 02/02/2024 14:42:38 COVID-19, mRNA, LNP-S, PF, 100 mcg/0.5mL dose or 50 mcg/0.25mL dose 2 completed Deann Tom RMA null, [facility] [employer] [facility] [employer] 02/02/2024 14:42:38 COVID-19, mRNA, LNP-S, PF, 30 mcg/0.3 mL dose 1 completed Deann Tom RMA shikha, [facility] [employer] [facility] 02/02/2024 14:42:38 Pneumococcal conjugate PCV20, polysaccharide [id number] conjugate, adjuvant, PF 4 completed JESSY Paula, [facility] [employer] 02/02/2024 14:42:38 RSV, recombinant, protein subunit RSVpreF, adjuvant reconstituted, 0.5 mL, PF 4 completed Deann Tom RMA null, [facility] [employer] [facility] [employer] 02/02/2024 14:42:38 Tdap 7 completed JESSY Paula, [facility] 02/02/2024 14:42:38 Influenza, split virus, trivalent, preservative 7 completed Deann Tom RMA null, [facility] 02/02/2024 14:42:38 COVID-19, mRNA, LNP-S, PF, 100 mcg/0.5mL dose or 50 mcg/0.25mL dose 1 completed Deann Tom RMA null, [facility] 02/02/2024 14:42:38 Tdap 7 completed Not Available [facility] 05/27/2022 03:33:18 Influenza, split virus, quadrivalent, preservative 7 completed Deann Tom RMA null, [facility] 02/02/2024 14:42:38 COVID-19, mRNA, LNP-S, PF, 30 mcg/0.3 mL dose 1 completed Deann Tom RMA null, [facility] 02/02/2024 14:42:38 COVID-19, mRNA, LNP-S, PF, 30 mcg/0.3 mL dose 1 completed Deann Tom RMA null, [facility] 02/02/2024 14:42:38 Influenza, split virus, trivalent, PF 4 completed Deann Tom RMA null, [facility] 02/02/2024 14:42:38 Influenza, high-dose, trivalent, PF 4 completed Nancy Dietz MD [address] [place] [address], [id number], [facility] [employer] [facility] 02/14/2024 18:47:56 Past Encounters Encounter ID Performer Location Encounter Start Date Encounter Closed Date Diagnosis/Indication Diagnosis SNOMED-CT Code Diagnosis ICD10 Code [id number] Nancy rose MD [facility] [address] [place] [address] 02/02/2024 13:51:20 02/02/2024 15:05:43 Adult health examination 892844184 Z00.00 Screening for disorder 930729296 Z13.9 Screening - NAD 06131913 3 Z13.9 Screening for osteoporosis 329995889 Z13.820 Gynecologi c examination 55618812 Z01.419 Screening mammography 24 834539 Z12.31 Hypothyroidism 43478046 E03.9 Essential hypertension 33409286 I10 Hyperlipidemia 48116403 E78.5 Type 2 omar betes mellitus without complication 372248854 E11.9 Migraine 01798964 G43.90 9 Moderate r ecurrent major depression 00719618 F33.1 Chronic ob structive pulmonary disease 55052891 J44.9 Urinary incontinence 165 830147 R32 Administra tion of influenza vaccine 13028397 Z23 [id number] Nancy rose MD [facility] [address] [facility] [address] [place] [address] 02/16/2024 11:55:47 02/16/2024 12:42:54 Pain of bilateral knee joints 7798604079 92910 M25.561 M25.562 Bilateral hip joint pain 7254545530 7657286 M25.551 M25.552 Essential hypertension 23746754 I10 Hyperlipidemia 61942336 E78.5 Type 2 omar betes mellitus without complication 221297874 E11.9 Chronic ki dney disease 088828104 N18.9 Screening - NAD 19785969 3 Z13.9 Screening for osteoporosis 884280553 Z13.820 Gynecologi c examination 14149146 Z01.419 Screening mammography 24 138126 Z12.31 Hypothyroidism 72352091 E03.9 Migraine 53995948 G43.90 9 Moderate r ecurrent major depression 02792378 F33.1 Chronic ob structive pulmonary disease 37065349 J44.9 Urinary incontinence 165 766120 R32 Health Concerns Section Related Observation LastModified by Organization Detai ls LastModified Time None Recorded Concern Status LastModified by Organization Details LastModified Time None Recorded Payers Encounter Date Sequence Insurance Name Policy Number Policy Ji Covered Member ID Ji Member ID Guarantor Name 02/16/2024 1 [place] Angelica Cowan [id number] Angelica Cowan 02/16/2024 2 [place]) 111 Angelica Cowan [id number] Angelica Cowan Notes Date Note Type Note Provider Name and Address Organization Details Recorded Time 02/16/2024 text/html OV 02/02/2024:Here to establish care Present Hx:HTNHLDDMIIDep ressionMigraine Here to discuss above and to get [...] has a swelling also Nancy Dietz MD [address] [place] [address], [place] [address], [place], [address], [place] [facility] [employer] 02/16/2024 14:13:56 OBGyn Episode No OBEpisode recorded.
--- OUTSIDE RECORDS SUMMARY | 2024-03-15 14:55 | XMS_ITS | Encounter Summary ---
Author Organization [facility] Address [address] [facility] [place] [address] Care Team Providers Care Deputy Editor In Chief Name Role Phone Marcelino Ahn MD Primary Care Provider Encounter Details Date Type Department Care Team (Late st Contact Info) Description 12/16/2017 Orders Only [facility] - [facility] [address] [place] [address], [facility] [place] [address] Stu Doss RN Low back pain, unspecified back pain laterality, unspecified chronicity, with sciatica presence unspecified Social History Tobacco Use Types Packs/Day Years Used Date Smoking Tobacco: Never Assessed Sex and Gender Information Value Date Recorded Sex Assigned at Not on file Gender Identity Not on file Sexual Orientation Not on file documented as of this encounter Plan of Treatment Not on file documented as of this encounter Results * XR LUMBAR SPINE 2 OR 3VW (12/17/2017 12:31 PM CDT) Anatomical Region Laterality Modality Spine Radiographic Jami ging 12/17/2017 1:04 PM CDT Impressions 12/17/2017 1:37 PM CDT IMPRESSION: Moderate multilevel degenerative changes with grade 2 anterolisthesis of L5 on S1. This report was dictated by Mahesh Gaines M.D. (residential worker). I, Dr. ZACH SUMMERS MD have personally reviewed and interpreted this examination/study. This report was electronically signed by ZACH SUMMERS MD ??on 12/17/2017 1:37 PM . Narrative 12/17/2017 1:37 PM CDT EXAMINATION: AP and Lateral radiographs of the lumbar spine HISTORY: LBP COMPARISON: No prior study is available for comparison. FINDINGS: Dextrocurvature of the lumbar spine is noted. There is grade 2 anterolisthesis measuring 10 mm of L5 on S1. There is no fracture or compression deformity. Moderate multilevel degenerative disc disease is present. Posterior facet arthropathy is noted in the lower lumbar spine. The sacroiliac joints are not widened. Surgical clips are seen in the right upper quadrant consistent with cholecystectomy. Procedure Note Zach Summers MD - 12/17/2017 EXAMINATION: AP and Lateral radiographs of the lumbar spine HISTORY: LBP COMPARISON: No prior study is available for comparison. FINDINGS: Dextrocurvature of the lumbar spine is noted. There is grade 2 anterolisthesis measuring 10 mm of L5 on S1. There is no fracture or compression deformity. Moderate multilevel degenerative disc disease is present. Posterior facet arthropathy is noted in the lower lumbar spine. The sacroiliac joints are not widened. Surgical clips are seen in the right upper quadrant consistent with cholecystectomy. IMPRESSION: Moderate multilevel degenerative changes with grade 2 anterolisthesis of L5 on S1. This report was dictated by Mahesh Gaines M.D. (residential worker). I, Dr. ZACH SUMMERS MD have personally reviewed and interpreted this examination/study. This report was electronically signed by ZACH SUMMERS MD on12/17/2017 1:37 PM . Shirley Spaulding PA-C DIAGNOSTIC IMAG ING ORDERABLES documented in this encounter Visit Diagnoses Diagnosis Low back pain, unspecified back pain laterality, unspecified chronicity, with sciatica presence unspecified- Primary documented in this encounter Care Teams Deputy Editor In Chief Relationship Specialty Start Date End Date Marcelino Ahn MD PCP - General 11/25/17 documented as of this encounter
--- OUTSIDE RECORDS SUMMARY | 2024-03-15 14:55 | XMS_ITS | Encounter Summary ---
Author Organization [facility] Address [address] [facility] [place] [address] Care Team Providers Care Buffing Machine Operator Name Role Phone Marcelino Ahn MD Primary Care Provider [phone] Encounter Details Date Type Department Care Team (Late st Contact Info) Description 03/06/2019 Orders Only [facility] [address] [place] [address], [place] [id number] Madan Quach MD [address] [place] [address] OF ORTHOPEDIC SURGERY [place], [place] [id number] Low back pain, unspecified back pain laterality, unspecified chronicity, unspecified whether sciatica present Social History Tobacco Use Types Packs/Day Years Used Date Smoking Tobacco: Former Cigarettes Smokeless Tobacco: Never Sex and Gender Information Value Date Recorded Sex Assigned at Not on file Gender Identity Not on file Sexual Orientation Not on file documented as of this encounter Plan of Treatment Not on file documented as of this encounter Results * XR LUMBAR SPINE 2 OR 3VW (03/06/2019 2:35 PM LINER MACHINE OPERATOR) Anatomical Region Laterality Modality Spine Radiographic Jami ging 03/06/2019 2:41 PM LINER MACHINE OPERATOR Impressions 03/06/2019 3:48 PM LINER MACHINE OPERATOR IMPRESSION: 1. Multilevel degenerative disc and joint disease with unchanged L5-S1 anterolisthesis. 2. Lumbar dextroscoliosis. Dictated by Dean Tang MD (Resident). I, Dr. YAA BUSH M.D. have personally reviewed and interpreted this examination/study. This report was electronically signed by YAA BUSH M.D. ??on 03/06/2019 3:48 PM . Narrative 03/06/2019 3:48 PM LINER MACHINE OPERATOR EXAMINATION: XR LUMBAR SPINE 2 OR 3VW HISTORY: M54.5: Low back pain, unspecified back pain laterality, unspecified chronicity, unspecified whether sciatica present COMPARISON: Comparison is made with a study from 01/10/2018 FINDINGS: A lumbar dextroscoliosis is unchanged. There is unchanged grade 2 L5-S1 anterolisthesis. Mild retrolisthesis is seen at L3-4. The vertebral body heights are normal without evidence of acute compression deformity. Mild to moderate multilevel degenerative disc and joint disease is again seen. There are surgical clips in the right upper quadrant. The sacroiliac joints are intact. r Procedure Note Yaa Bush MD - 03/06/2019 EXAMINATION: XR LUMBAR SPINE 2 OR 3VW HISTORY: M54.5: Low back pain, unspecified back pain laterality, unspecified chronicity, unspecified whether sciatica present COMPARISON: Comparison is made with a study from 01/10/2018 FINDINGS: A lumbar dextroscoliosis is unchanged. There is unchanged grade 2 L5-S1 anterolisthesis. Mild retrolisthesis is seen at L3-4. The vertebral body heights are normal without evidence of acute compression deformity. Mild to moderate multilevel degenerative disc and joint disease is againseen. There are surgical clips in the right upper quadrant. The sacroiliac joints are intact. r IMPRESSION: 1. Multilevel degenerative disc and joint disease with unchanged L5-S1 anterolisthesis. 2. Lumbar dextroscoliosis. Dictated by Dean Tang MD (Resident). I, Dr. YAA BUSH M.D. have personally reviewed and interpreted this examination/study. This report was electronically signed by YAA BUSH M.D. on 03/06/2019 3:48 PM . Madan Quach MD DIAGNOSTIC IMAGING O RDERABLES documented in this encounter Visit Diagnoses Diagnosis Low back pain, unspecified back pain laterality, unspecified chronicity, unspecified whether sciatica present- Primary Low back pain, unspecified back pain laterality, unspecified chronicity, unspecified whether sciatica present documented in this encounter Care Teams Buffing Machine Operator Relationship Specialty Start Date End Date Marcelino Ahn MD PCP - General 11/25/17 documented as of this encounter
--- OUTSIDE RECORDS SUMMARY | 2024-03-15 14:55 | XMS_ITS | Clinical Summary ---
Author Organization [facility] Address [address] [place] [address]. [place] [address] Care Team Providers Care Buildings And Grounds Coordinator Name Role Phone Ángel Bishop MD Primary Care Provider [phone] Social History Tobacco Use Types Packs/Day Years Used Date Smoking Tobacco: Never Assessed Comments Unknown Sex and Gender Information Value Date Recorded Sex Assigned at Not on file Legal Sex Female 7:44 PM CDT Gender Identity Not on file Sexual Orientation Not on file Last Filed Vital Signs Vital Sign Reading Time Taken Comments Blood Pressure 136/84 04/27/2013 10:34 AM METAL BENDING MACHINE OPERATOR Pulse 82 04/27/2013 10:34 AM METAL BENDING MACHINE OPERATOR Temperature - - Respiratory Rate - - Oxygen Saturation - - Inhaled Oxygen Concentration - - Weight 99.8 kg (220 lb) 04/27/2013 10:34 AM METAL BENDING MACHINE OPERATOR Height 170.2 cm (5' 7 ) 04/27/2013 10:34 AM METAL BENDING MACHINE OPERATOR Body Mass Index 34.46 04/27/2013 10:34 AM METAL BENDING MACHINE OPERATOR Plan of Treatment Health Maintenance Due Date Last Done Comments Colorectal Cancer Screening Colonoscopy (10 Years) 1957 Hepatitis C 09/26/1975 DTaP, Tdap and Td Vaccines ( 1 - Tdap) 1976 Mammogram Screening 1997 Zoster Vaccines (1 of 2) 09/26/2007 RSV Immunization or 60+ Years (1 - 1-dose 60+ series) 2017 Dexa Scan (General) 2022 Pneumococcal Vaccine: 65+ Ye ars (1 of 1 - PCV) 2022 COVID-19 Vaccine ( - 2023-2 5 season) 2023 Influenza Adult (#1) 2023 Meningococcal Vaccine Aged Out No kim melissa eligible based on patient's age to complete this topic RSV Immunizations Under 20 Months Aged Out No longer eligible based on patient's age to complete this topic Care Teams Buildings And Grounds Coordinator Relationship Specialty Start Date End Date Ángel Bishop MD PCP - General 04/12/13
--- OUTSIDE RECORDS SUMMARY | 2024-03-15 14:55 | XMS_ITS | Referral Summary ---
Author Organization [facility] [employer] Address [address] [place] [address] Care Team Providers Care Glass Sagger Name Role Phone Marcelino Ahn MD Primary Care Provider [phone] Source Comments [facility] [employer],non-owned Affiliates and Associated Physician Practices is amultiple site organization consisting of ambulatory clinics and hospital sitesin [place], [place], [place] and [place]. This disclosure is being madepursuant to the Care Everywhere program and may not contain all information available regarding this patient. Last updated 17.[facility] [employer] Allergies No known active allergies Medications * Be aware that medications may not be up to date on this document. Alwaysverify current medications with the patient. Medication Sig Dispensed Refills Start Date End Date Status amitriptyline (ELAVIL) 50 MG tablet 10/12/2017 Active levothyroxine (SYNTHROID) 112 MCG tablet 12/10/2017 Active losartan-hydroCHLORO thiazide (HYZAAR) 100-25 MG tablet 12/10/2017 Active sertraline (ZOLOFT) 50 MG tablet 11/18/2017 Active topiramate (TOPAMAX) 100 MG tablet 11/19/2017 Active ZOLMitriptan (ZOMIG) 5 MG tablet TK 1 T PO PRF MIGRAINE 0 11/23/2017 Active Biotin 59949 MCG TABS biotin Active aspirin (ASPIRIN) 81 MG tablet aspirin 81 mg tablet,delayed release Active ibuprofen (MOTRIN) 800 MG tablet ibuprofen 800 mg tablet Active meloxicam (MOBIC) 15 MG tabletIndications:Annabelle mbar spondylosis,Spondylo listhesis, lumbar region,Chronic right-sided low back pain with sciatica, sciatica laterality unspecified Take 1 tablet by mouth once daily 30 tablet 2 03/06/2019 Active Active Problems Problem Noted Date Diagnosed Date Lumbar spondylosis 01/10/2018 Spondylolisthesis, lumbar region 01/10/2018 Chronic right-sided low back pain with sciatica 01/10/2018 Social History Tobacco Use Types Packs/Day Years Used Date Smoking Tobacco: Former Cigarettes Smokeless Tobacco: Never Sex and Gender Information Value Date Recorded Sex Assigned at Not on file Gender Identity Not on file Sexual Orientation Not on file Last Filed Vital Signs Vital Sign Reading Time Taken Comments Blood Pressure - - Pulse - - Temperature - - Respiratory Rate - - Oxygen Saturation - - Inhaled Oxygen Concentration - - Weight 104.8 kg (231 lb) 03/06/2019 2:46 PM PROGRAM MANAGER TRANSPORTATION Height 170.2 cm (5' 7 ) 03/06/2019 2:46 PM PROGRAM MANAGER TRANSPORTATION Body Mass Index 36.18 03/06/2019 2:46 PM PROGRAM MANAGER TRANSPORTATION Plan of Treatment Not on file Care Teams Glass Sagger Relationship Specialty Start Date End Date Marcelino Ahn MD PCP - General 11/25/17
--- OUTSIDE RECORDS SUMMARY | 2024-03-15 14:55 | XMS_ITS | Encounter Summary ---
Author Organization [facility] Address [address] [facility] [place] [address] Care Team Providers Care Renal Dialysis Technician Name Role Phone Marcelino Ahn MD Primary Care Provider [phone] Encounter Details Date Type Department Care Team (Late st Contact Info) Description 03/06/2019 2:28 PM VISITING PROFESSOR - 03/06/2019 11:59 PM [facility] Hospital Encounter [facility] DIAGNOSTIC RAD [facility] [address] [facility] [place] [address] Madan Quach MD [address] [facility] OF ORTHOPEDIC SURGERY [place], [place] [id number] Discharge Disposition: Home or Self Care Social History Tobacco Use Types Packs/Day Years Used Date Smoking Tobacco: Former Cigarettes Smokeless Tobacco: Never Sex and Gender Information Value Date Recorded Sex Assigned at Not on file Gender Identity Not on file Sexual Orientation Not on file documented as of this encounter Medications at Time of Discharge Medication Sig Dispensed Refills Start Date End Date amitriptyline (ELAVIL) 50 MG tablet 10/12/2017 aspirin (ASPIRIN) 81 MG tablet aspirin 81 mg tablet,delayed release Biotin 76287 MCG TABS biotin ibuprofen (MOTRIN) 800 MG tablet ibuprofen 800 mg tablet levothyroxine (SYNTHROID) 112 MCG tablet 12/10/2017 losartan-hydroCHLOROthia zide (HYZAAR) 100-25 MG tablet 12/10/2017 meloxicam (MOBIC) 15 MG tabletIndications:Lumbar spondylosis,Spondylolist hesis, lumbar region,Chronic right-sided low back pain with sciatica, sciatica laterality unspecified Take 1 tablet by mouth once daily 30 tablet 2 03/06/2019 sertraline (ZOLOFT) 50 MG tablet 11/18/2017 topiramate (TOPAMAX) 100 MG tablet 11/19/2017 ZOLMitriptan (ZOMIG) 5 MG tablet TK 1 T PO PRF MIGRAINE 0 11/23/2017 documented as of this encounter Plan of Treatment Not on file documented as of this encounter Procedures Procedure Name Priority Date/Time Associated Diagnosis Comments XR LUMBAR SPINE 2 OR 3VW Routine 03/06/2019 2:35 PM VISITING PROFESSOR Low back pain, unspecified back pain laterality, unspecified chronicity, unspecified whether sciatica present documented in this encounter Results * XR LUMBAR SPINE 2 OR 3VW (03/06/2019 2:35 PM VISITING PROFESSOR) Anatomical Region Laterality Modality Spine Radiographic Jami ging 03/06/2019 2:41 PM VISITING PROFESSOR Impressions 03/06/2019 3:48 PM VISITING PROFESSOR IMPRESSION: 1. Multilevel degenerative disc and joint disease with unchanged L5-S1 anterolisthesis. 2. Lumbar dextroscoliosis. Dictated by Dean Tang MD (Resident). I, Dr. YAA BUSH M.D. have personally reviewed and interpreted this examination/study. This report was electronically signed by YAA BUSH M.D. ??on 03/06/2019 3:48 PM . Narrative 03/06/2019 3:48 PM VISITING PROFESSOR EXAMINATION: XR LUMBAR SPINE 2 OR 3VW [...] present documented in this encounter Care Teams Renal Dialysis Technician Relationship Specialty Start Date End Date Marcelino Ahn MD PCP - General 11/25/17 documented as of this encounter
--- OUTSIDE RECORDS SUMMARY | 2024-03-15 14:55 | XMS_ITS | Clinical Summary ---
Author Organization [facility] [employer] Address [address] [place] [address] Care Team Providers Care Grants Analyst Name Role Phone Marcelino Ahn MD Primary Care Provider [phone] Source Comments [facility] [employer],non-owned Affiliates and Associated Physician Practices is amultiple site organization consisting of ambulatory clinics and hospital sitesin [place], [place], [place] and [place]. This disclosure is being madepursuant to the Care Everywhere program and may not contain all information available regarding this patient. Last updated 17.[facility] [employer] Allergies No known active allergies Medications * [...] PO PRF MIGRAINE 0 11/23/2017 Active Biotin 18941 MCG TABS biotin Active aspirin (ASPIRIN) 81 [...] 104.8 kg (231 lb) 03/06/2019 2:46 PM PHOTOVOLTAIC POWER SYSTEMS ENGINEER Height 170.2 cm (5' 7 ) 03/06/2019 2:46 PM PHOTOVOLTAIC POWER SYSTEMS ENGINEER Body Mass Index 36.18 03/06/2019 2:46 PM PHOTOVOLTAIC POWER SYSTEMS ENGINEER Plan of Treatment Health Maintenance Due Date Last Done Comments BONE DENSITY TESTING 1957 COLOGUARD (AGES 45-75) - COL ON CA SCREENING 1957 COLON MONITORING 1957 COLONOSCOPY - COLON CA SCREENING 1957 CT COLONOGRAPHY - COLON CA SCREENING 1957 Colorectal Cancer Screening 1957 FIT - COLON CA SCREENING 1957 FLEX SIG - COLON CA SCREENING 1957 LIPID TESTING 1957 MAMMOGRAM 1955 MEDICARE AWV ? 12 MONTHS 1957 HEPATITIS C SCREENING 09/21/1975 DTAP/TDAP/TD VACCINES (1 - Tdap) 1976 ZOSTER VACCINE (1 of 2) 09/26/2007 SCREENING FOR DIABETES 12/17/2017 PNEUMOCOCCAL VACCINE 65+ (1 of 1 - PCV) 2022 DEPRESSION SCREENING 03/29/2023 COVID-19 VACCINE (1 - 2023-2 5 season) 2023 INFLUENZA VACCINE (#1) 2023 7, 01/31/2014 Respiratory Syncytial Virus (RSV) Vaccine Pt: or over 60 yrs (1 - 1-dose 75+ series) 2032 HEPATITIS B VACCINE Aged Out No longe r eligible based on patient's age to complete this topic HIB VACCINE Aged Out No longer eligi ble based on patient's age to complete this topic HPV VACCINE Aged Out No longer eligi ble based on patient's age to complete this topic MENINGOCOCCAL VACCINE Aged Out No kim melissa eligible based on patient's age to complete this topic Care Teams Grants Analyst Relationship Specialty Start Date End Date Marcelino Ahn MD PCP - General 11/25/17
--- OUTSIDE RECORDS SUMMARY | 2024-03-15 14:55 | XMS_ITS | Encounter Summary ---
Author Organization [facility] Address [address] [facility] [place] [address] Care Team Providers Care Health Sciences Dean Name Role Phone Marcelino Ahn MD Primary Care Provider [phone] Reason for Referral * Radiology Services (Routine) - Closed Specialty Diagnoses / Procedures Referred By Contac t Referred To Contact MRI Diagnoses Osteoarthritis of spine with radiculopathy, lumbar region Procedures MRI LUMBAR SPINE WO CONTRAST Shirley Spaulding PA-C [address] [place] [address] [facility] Mri [address] [place] [address] Referral ID Status Reason Start Date Expiration Date Visits Re quested Visits Authorized [id number] Closed 12/17/2017 06/15/2018 1 1 Reason for Visit * Reason Comments Pain Back Encounter Details Date Type Department Care Team (Latest Contact Info) Description 12/17/2017 12:00 PM CDT Office Visit [facility] - Orthopedics [address] [facility] [place] [address] Shirley Spaulding PA-C [address] [place] [address] Osteoarthritis of spine with radiculopathy, lumbar region (Primary Dx) Social History Tobacco Use Types Packs/Day Years Used Date Smoking Tobacco: Former Cigarettes Smokeless Tobacco: Never Sex and Gender Information Value Date Recorded Sex Assigned at Not on file Gender Identity Not on file Sexual Orientation Not on file documented as of this encounter Last Filed Vital Signs Vital Sign Reading Time Taken Comments Blood Pressure - - Pulse - - Temperature - - Respiratory Rate - - Oxygen Saturation - - Inhaled Oxygen Concentration - - Weight 93.5 kg (206 lb 1.6 oz) 12/17/2017 12:38 PM CDT Height 170.2 cm (5' 7 ) 12/17/2017 12:38 PM CDT Body Mass Index 32.28 12/17/2017 12:38 PM CDT documented in this encounter Patient Instructions * Patient Instructions* Shirley Spaulding PA-C - 12/17/2017 1:07 PM CDT [facility] Department of Orthopaedic Surgery Orthopaedic Clinic Discharge Form Angelica Cowan 12/17/2017 Thank you for coming in to see us today for your diagnosis of: Osteoarthritis of spine with radiculopathy, lumbar region - Plan: MRI LUMBAR SPINE WO CONTRAST Activity Restrictions: as tolerated Medications Prescribed: none Special Studies/Labs to be completed: MRI lumbar spine We recommend that you try the following for your injury: physical therapy exercises, anti-inflammatory medications, tylenol, activity modification, weight loss and icing 20 minutes at a time 3 to 5 times daily Recommend 2000 units Vitamin D daily for bone health May try 1500 to 2000 mg Glucosamine/chondriotin/MSM daily for joint pain Medications over the counter: - Acetaminophen (Tylenol) 500mg 1-2 tablets every 6 hours as needed for pain, not exceeding daily total of 3000mg. Please note that narcotic medications can consist of same ingredient. - Ibuprofen (Advil) 200mg 1-3 tablets every 8 hours as needed for pain, not exceeding daily total of 2400mg OR Naproxen (Aleve) 220mg 1-2 tablets every 12 hours as needed for pain. Take with food or milk to prevent stomach upset. Do not take any other NSAIDs while taking this medication. Follow up: with [facility] Spine surgeon following MRI Angelica Cowan had a clinic appointment on 12/17/2017. Please contact our office to make an appointment if your symptoms are not improving, or if something about your condition significantly changes. [facility] Orthopaedic office contact information: [facility] ; select option 4 to leave voicemail with [facility] [address] [facility] [place] [address] [facility] [address] [place] [address], [address], [place] [address] documented in this encounter Progress Notes * Shirley Spaulding PA-C - 12/17/2017 12:40 PM CDT [facility] [address] [facility] [address] Dept: [phone] Dept Today we had the pleasure of seeing Angelica Cowan in our [facility] Spine Surgery Clinic for Chief Complaint Patient presents with ??? Pain Back Angelica Cowan is a 62 y.o. female who has back pain. Pain is located to the lumbar spine and extendsto bilateral lateral thighs to the knees. The patient first noted symptoms years ago. It was related to NKI. she denies paresthesias or weakness in her legs. Symptoms are exacerbated by bending, lifting, carrying or after increased activity. Factors which relieve the pain include wearing LSO. she is taking ibuprofen for pain. she ambulates with none. she completed physical therapy 3 months ago. she has done lumbar steroid injections. Last injection was 6 months ago. There are not symptoms of bowel or bladder dysfunction. No past medical history on file. No past surgical history on file. No family history on file. History Smoking Status ??? Former Smoker ??? Types: Cigarettes Smokeless Tobacco ??? Never Used Focused ROS includes: Enodcrine Diabetes Mellitus: Non-Insulin Thyroid disorders: yes Pulmonary COPD: no Asthma: no Other: negative Cardiac History of CHF: no History of CO: no Previous PCI / PTCA: no Previous Cardiac Surgery: no History Angina w/in 30 days: no Hypertension requires meds: yes Vascular Known peripheral vascular disease: no Central Nervous System History of TIA's: no CVA: No History of Cancer of any kind: no Bleeding disorders: no Other significant health issues are: negative Physical Examination Vitals: 12/17/17 1238 Weight: 93.5 kg (206 lb 1.6 oz) Estimated body mass index is 32.28 kg/(m^2) as calculated from the following: Height as of this encounter: 1.702 m (5' 7 ). Weight as of this encounter: 93.5 kg (206 lb 1.6 oz). The patient is able to ambulate with none. The patient stands flexed forward. There is no obvious sign ofspinal dysraphism . There is not a previous incision. The lumbar spine is not tender to palpation. There is not clonus. Hip rotation is normal. Muscle strength testing for the hip flexors are 5,hip abductors are 5, hip adductors are 5, quadriceps are 5,hamstrings are 5, dorsiflexors are 5, EHL is 5 and gastosoleus is 5. Sensation is Normal.SLR on the right is Negative and on the left is Negative. Patellar reflexes are 1/4, Achilles reflexes are 1/4. Dhaliwal's is negative. Romberg testing is negative. Gait is Normal, toe walk is normal and heel walk is normal. Tandem gait testing is negative Radiographs were reviewed by me in office: plain films lumbar spine: no fracture. Grade 2 anterolisthesis L5-S1. Dextrocurvature lumbar spine. Disc degeneration with facet arthopathy Impression: Lumbar spondylosis Sheryl 2 anterolisthesis L5-S1 Plan: The patient was counseled as to her diagnosis and demonstrated understanding. 1. Restrictions: none 2. continue physical therapy exercises at home as tolerated. Discussed importance of developing a home exercise program 3. Medication prescribed: none. Continue ibuprofen as needed for pain. 4. Patient was counseled as to the following conservative interventions: - Recommend 2000 units Vitamin D daily for bone health - May try 1500 to 2000 mg Glucosamine/chondriotin/MSM daily for joint pain. - The patient was counseled as to the benefits of weight loss. - she was informed about the use of ambulatory assistive devices. 5. MRI lumbar spine secondary to chronic back pain not improved with PT, NSAIDs, injections and LSO 6. F/U with [facility] surgeon following MRI as patient notes pain is not improved with PT, NSAIDs, injections and LSO and is interested in discussing whether operative intervention may improve symptoms. Shirley Spaulding PA-C documented in this encounter Plan of Treatment Not on file documented as of this encounter Results * MRI LUMBAR SPINE WO CONTRAST (01/05/2018 8:40 AM CDT) Anatomical Region Laterality Modality Spine Magnetic Resonan ce 01/05/2018 9:10 AM CDT Impressions 01/05/2018 1:19 PM CDT IMPRESSION: 1. Lumbar degenerative disease with mild to moderate neural foraminal stenosis at L4-5 and L5-S1 as outlined. 2. Grade 2 anterolisthesis at L5-S1. This report was approved ??by Dennis Hanks ?? on 01/05/2018 1:04 PM . I, Dr. ERINN AVILA have personally reviewed and interpreted this examination/study. This report was electronically signed by ERINN AVILA ??on 01/05/2018 1:19 PM . Narrative 01/05/2018 1:19 PM CDT EXAMINATION: Magnetic resonance imaging (MRI) of the lumbar spine without contrast HISTORY: Lumbar spondylosis with radiculopathy TECHNIQUE: MRI of the lumbar spine was performed without contrast according to standard protocol. FINDINGS: Comparison is made with a lumbar spine radiograph from 12/17/2017. There is dextrocurvature of the lumbar spine with exaggerated lordosis. There is grade 2 anterolisthesis at L5-S1 with uncovering of the disc. Vertebral bodies are normal in height without evidence of compression fractures. Modic type I endplate changes are noted at the L3 superior endplate. The conus medullaris terminates at the level of L1-2 and the distal spinal cord signal intensity is normal. There is multilevel intervertebral disc height loss, most prominent at L4-5 and L5-S1 with disc desiccation at these levels. No soft tissue abnormality is identified. L1-L2: There is no disc bulge. There is no central canal stenosis. There is no facet osteoarthritis. There is no neural foraminal stenosis. L2-L3: There is no disc bulge. There is no central canal stenosis. There is no facet osteoarthritis. There is no neural foraminal stenosis. L3-L4: There is no disc bulge. There is no central canal stenosis. There is mild bilateral facet osteoarthritis. There is no neural foraminal stenosis. L4-L5: There is diffuse disc bulge, slightly eccentric to the left. There is no central canal stenosis. There is moderate bilateral facet osteoarthritis. There is moderate right and mild left neural foraminal stenosis. L5-S1: There is no disc bulge. There is no central canal stenosis. There is severe bilateral facet osteoarthritis. There is moderate bilateral neural foraminal stenosis. Procedure Note Erinn Avila MD - 01/05/2018 EXAMINATION: Magnetic resonance imaging (MRI) of the lumbar spinewithout contrast HISTORY: Lumbar spondylosis with radiculopathy TECHNIQUE: MRI of the lumbar spine was performed without contrast according to standard protocol. FINDINGS: Comparison is made with a lumbar spine radiograph from12/17/2017. There is dextrocurvature of the lumbar spine with exaggerated lordosis. There is grade 2 anterolisthesis at L5-S1 with uncovering of the disc. Vertebral bodies are normal in height without evidence of compression fractures. Modic type I endplate changes are noted at the L3 superior endplate. The conus medullaris terminates at the level of L1-2 and the distal spinal cord signal intensity is normal. There is multilevel intervertebral disc height loss, most prominent at L4-5 and L5-S1 with disc desiccation at these levels. No soft tissue abnormality is identified. L1-L2: There is no disc bulge. There is no central canal stenosis. There is no facet osteoarthritis. There is no neural foraminal stenosis. L2-L3: There is no disc bulge. There is no central canal stenosis. There is no facet osteoarthritis. There is no neural foraminal stenosis. L3-L4: There is no disc bulge. There is no central canal stenosis. There is mild bilateral facet osteoarthritis. There is no neural foraminal stenosis. L4-L5: There is diffuse disc bulge, slightly eccentric to the left.There is no central canal stenosis. There is moderate bilateral facet osteoarthritis. There is moderate right and mild left neural foraminal stenosis. L5-S1: There is no disc bulge. There is no central canal stenosis. There is severe bilateral facet osteoarthritis. There is moderate bilateral neural foraminal stenosis. IMPRESSION: 1. Lumbar degenerative disease with mild to moderate neural foraminal stenosis at L4-5 and L5-S1 as outlined. 2. Grade 2 anterolisthesis at L5-S1. This report was approved by Dennis Hanks on 01/05/2018 1:04 PM . I, Dr. ERINN AVILA have personally reviewed and interpreted this examination/study. This report was electronically signed by ERINN AVILA on 01/05/2018 1:19 PM . Shirley Spaulding PA-C MR ORDERABLES documented in this encounter Visit Diagnoses Diagnosis Osteoarthritis of spine with radiculopathy, lumbar region- Primary Osteoarthritis of spine with radiculopathy, lumbar region documented in this encounter Care Teams Health Sciences Dean Relationship Specialty Start Date End Date Marcelino Ahn MD PCP - General 11/25/17 documented as of this encounter
--- OUTSIDE RECORDS SUMMARY | 2024-03-15 14:55 | XMS_ITS | Encounter Summary ---
Author Organization [facility] Address [address] [facility] [place] [address] Care Team Providers Care [employer] Name Role Phone Marcelino Ahn MD Primary Care Provider [phone] Encounter Details Date Type Department Care Team (Late st Contact Info) Description 01/10/2018 Orders Only [facility] - [facility] [address] [place] [address] Stu Doss RN Low back pain, [...] as of this encounter Results * XR SPINE ENTIRE 2 OR 3VW (01/10/2018 12:28 PM CDT) Anatomical Region Laterality Modality Radiographic Jami ging 01/10/2018 12:3 4 PM CDT Impressions 01/10/2018 12:38 PM CDT IMPRESSION: 1. Thoracolumbar dextroscoliosis. 2. Grade 2 anterolisthesis at L5-S1. This report was electronically signed by ZACH SUMMERS MD ??on 01/10/2018 12:38 PM . Narrative 01/10/2018 12:38 PM CDT Exam: ??XR SPINE ENTIRE two-view History: ??STANDING Comparison: Lumbar spine radiographs dated 12/17/2017. Findings: There is thoracolumbar dextroscoliosis measuring 23 degrees from T12 to L4. Grade 2 anterolisthesis is seen at L5-S1; artifact from the image edges is present in this region. Mild to moderate multilevel degenerative disc and joint disease is present throughout the spine. Procedure Note Zach Summers MD - 01/10/2018 Exam: XR SPINE ENTIRE two-view History: STANDING Comparison: Lumbar spine radiographs dated 12/17/2017. Findings: There is thoracolumbar dextroscoliosis measuring 23 degrees from T12 to L4. Grade 2 anterolisthesis is seen at L5-S1; artifact from the image edges is present in this region. Mild to moderate multileveldegenerative disc and joint disease is present throughout the spine. IMPRESSION: 1. Thoracolumbar dextroscoliosis. 2. Grade 2 anterolisthesis at L5-S1. This report was electronically signed by ZACH SUMMERS MD on 01/10/2018 12:38 PM . Madan Quach MD DIAGNOSTIC IMAGING O RDERABLES documented in this encounter Visit Diagnoses Diagnosis Low back pain, unspecified back pain laterality, unspecified chronicity, with sciatica presence unspecified- Primary documented in this encounter Care Teams [employer] Relationship Specialty Start Date End Date Marcelino Ahn MD PCP - General 11/25/17 documented as of this encounter
--- OUTSIDE RECORDS SUMMARY | 2024-03-15 14:55 | XMS_ITS | Encounter Summary ---
Author Organization [facility] Address [address] [place] [address]. [place] [address] [place] [address] Care Team Providers Care Diesel Truck Driver Name Role Phone Ángel Bishop MD Primary Care Provider [phone] Encounter Details Date Type Department Care Team (Late st Contact Info) Description 05/23/2013 Abstract [facility] Medical Group Multispecialty Care - [facility] [address] [facility], [address] [place] [address] Romero Dorsey MD [address] [facility] [address] [place] [id number] Social History Tobacco Use Types Packs/Day Years Used Date Smoking Tobacco: Never Assessed Comments Unknown Sex and Gender Information Value Date Recorded Sex Assigned at Not on file Legal Sex Female 7:44 PM CDT Gender Identity Not on file Sexual Orientation Not on file documented as of this encounter Plan of Treatment Not on file documented as of this encounter Visit Diagnoses Not on filedocumented in this encounter Care Teams Diesel Truck Driver Relationship Specialty Start Date End Date Ángel Bishop MD PCP - General 04/12/13 documented as of this encounter
--- OUTSIDE RECORDS SUMMARY | 2024-03-15 14:55 | XMS_ITS | Encounter Summary ---
Author Organization [facility] Address [address] [place] [address] Care Team Providers Care Straightener And Aligner Name Role Phone Marcelino Ahn MD Primary Care Provider [phone] Reason for Referral * Radiology Services (Routine) - Closed Specialty Diagnoses / Procedures Referred By Contac t Referred To Contact MRI Diagnoses Osteoarthritis of spine with radiculopathy, lumbar region Procedures MRI LUMBAR SPINE WO CONTRAST Shirley Spaulding PA-C [address] [place] [address] [facility] Mri [address] [place] [phone] Referral ID Status Reason Start Date Expiration Date Visits Re quested Visits Authorized [id number] Closed 12/17/2017 06/15/2018 1 1 Reason for Visit * Radiology Services (Routine) - Closed Specialty Diagnoses / Procedures Referred By Contac t Referred To Contact MRI Diagnoses Osteoarthritis of spine with radiculopathy, lumbar region Procedures MRI LUMBAR SPINE WO CONTRAST Shirley Spaulding PA-C [address] [place] [address] [facility] Mri [address] [place] [address] Referral ID Status Reason Start Date Expiration Date Visits Re quested Visits Authorized [id number] Closed 12/17/2017 06/15/2018 1 1 Encounter Details Date Type Department Care Team (Latest Contact Info) Description 01/05/2018 7:40 AM CDT - 01/05/2018 11:59 PM CDT Hospital Encounter [facility] MRI [address] [place] [address] Shirley Spaulding PA-C [address] [place] [id number] Discharge Disposition: Home or Self Care Social [...] Date amitriptyline (ELAVIL) 50 MG tablet 10/12/2017 levothyroxine (SYNTHROID) 112 MCG tablet 12/10/2017 losartan-hydroCHLOROthiaz elise (HYZAAR) 100-25 MG tablet 12/10/2017 sertraline (ZOLOFT) 50 MG tablet 11/18/2017 topiramate (TOPAMAX) 100 MG tablet 11/19/2017 ZOLMitriptan (ZOMIG) 5 MG tablet TK 1 T PO PRF MIGRAINE 0 11/23/2017 documented as of this encounter Plan of Treatment Not on file documented as of this encounter Procedures Procedure Name Priority Date/Time Associated Diagnosis Comments MRI LUMBAR SPINE WO CONTRAST Routine 01/05/2018 8:40 AM CDT Osteoarthritis of spine with radiculopathy, lumbar region documented in this encounter Results * MRI LUMBAR SPINE [...] Dennis Hanks on 01/05/2018 1:04 PM . IDr. ERINN have personally reviewed and interpreted this examination/study. This report was electronically signed by ERINN AVILA on 01/05/2018 1:19 PM . Shirley Spaulding PA-C MR ORDERABLES documented in this encounter Visit Diagnoses Diagnosis Osteoarthritis of spine with radiculopathy, lumbar region documented in this encounter Care Teams Straightener And Aligner Relationship Specialty Start Date End Date Marcelino Ahn MD PCP - General 11/25/17 documented as of this encounter
--- OUTSIDE RECORDS SUMMARY | 2024-03-15 14:55 | XMS_ITS | Encounter Summary ---
Author Organization [facility] Address [address] [place] [address]. [place] [address] Care Team Providers Care Auction Assistant Name Role Phone Ángel Bishop MD Primary Care Provider [phone] Encounter Details Date Type Department Care Team (Latest Contact Info) Description 02/01/2018 Abstract [facility] Medical [facility] , Karla Toth MD Social History Tobacco Use Types Packs/Day Years [...] on filedocumented in this encounter Care Teams Auction Assistant Relationship Specialty Start Date End Date Ángel Bishop MD PCP - General 04/12/13 documented as of this encounter
--- OUTSIDE RECORDS SUMMARY | 2024-03-15 14:55 | XMS_ITS | Patient Health Summary ---
Author Organization [facility] Address [address] [place] [address] Care Team Providers Care Clinical Neuropsychologist Name Role Phone Marcelino Ahn MD Primary Care Provider [phone] Note from [facility],non-owned Affiliates and Associated Physician Practices is amultiple site organization consisting of ambulatory clinics and hospital sitesin [place], [place], [place] and [place]. This disclosure is being madepursuant to the Care Everywhere program and may not contain all information available regarding this patient. Last updated 17.[facility] Allergies No known active allergies Medications * Be aware that medications may not be up to date on this document. Alwaysverify current medications with the patient. * amitriptyline (ELAVIL) 50 MG tablet(Started 10/12/2017) * levothyroxine (SYNTHROID) 112 MCG tablet(Started 12/10/2017) * losartan-hydroCHLOROthiazide (HYZAAR) 100-25 MG tablet(Started 12/10/2017) * sertraline (ZOLOFT) 50 MG tablet(Started 11/18/2017) * topiramate (TOPAMAX) 100 MG tablet(Started 11/19/2017) * ZOLMitriptan (ZOMIG) 5 MG tablet(Started 11/23/2017) TK 1 T PO PRF MIGRAINE * Biotin 79560 MCG TABS biotin * aspirin (ASPIRIN) 81 MG tablet aspirin 81 mg tablet,delayed release * ibuprofen (MOTRIN) 800 MG tablet ibuprofen 800 mg tablet * meloxicam (MOBIC) 15 MG tablet(Started 03/06/2019) Take 1 tablet by mouth once daily 2 refills by 03/05/2020 Active Problems Problem Noted Date Diagnosed Date [...] 104.8 kg (231 lb) 03/06/2019 2:46 PM SINGLE WIRE SAW OPERATOR Height 170.2 cm (5' 7 ) 03/06/2019 2:46 PM SINGLE WIRE SAW OPERATOR Body Mass Index 36.18 03/06/2019 2:46 PM SINGLE WIRE SAW OPERATOR Procedures * XR LUMBAR SPINE 2 OR 3VW(Performed 03/06/2019) Performed for Low back pain, unspecified back pain laterality, unspecified chronicity, unspecified whether sciatica present * XR LUMBAR SP FLEX EXT 2 OR 3VW(Performed 01/10/2018) Performed for Chronic midline low back pain with sciatica, sciatica laterality unspecified * XR SPINE ENTIRE 2 OR 3VW(Performed 01/10/2018) Performed for Low back pain, unspecified back pain laterality, unspecified chronicity, with sciatica presence unspecified * MRI LUMBAR SPINE WO CONTRAST(Performed 01/05/2018) Performed for Osteoarthritis of spine with radiculopathy, lumbar region * XR LUMBAR SPINE 2 OR 3VW(Performed 12/17/2017) Performed for Low back pain, unspecified back pain laterality, unspecified chronicity, with sciatica presence unspecified Results * XR LUMBAR SPINE 2 OR 3VW (03/06/2019 2:35 PM SINGLE WIRE SAW OPERATOR) Only the most recent of2 resultswithin the time period is included. Anatomical Region Laterality Modality Spine Radiographic Jami ging 03/06/2019 2:41 PM SINGLE WIRE SAW OPERATOR Impressions 03/06/2019 3:48 PM SINGLE WIRE SAW OPERATOR IMPRESSION: 1. Multilevel degenerative disc and joint disease with unchanged L5-S1 anterolisthesis. 2. Lumbar dextroscoliosis. Dictated by Dean Tang MD (Resident). I, Dr. YAA BUSH M.D. have personally reviewed and interpreted this examination/study. This report was electronically signed by YAA BUSH M.D. ??on 03/06/2019 3:48 PM . Narrative 03/06/2019 3:48 PM SINGLE WIRE SAW OPERATOR EXAMINATION: XR LUMBAR SPINE 2 OR [...] joints are intact. r Procedure Note Yaa uBsh MD - 03/06/2019 EXAMINATION: XR LUMBAR SPINE [...] Madan Quach MD DIAGNOSTIC IMAGING O RDERABLES * XR LUMBAR SP FLEX EXT 2 OR 3VW (01/10/2018 1:07 PM CDT) Anatomical Region Laterality Modality Spine Radiographic Jami ging 01/10/2018 1:26 PM CDT Impressions 01/10/2018 1:27 PM CDT IMPRESSION: Anterolisthesis at L5-S1. This report was electronically signed by ZACH SUMMERS MD ??on 01/10/2018 1:27 PM . Narrative 01/10/2018 1:27 PM CDT Exam: ??XR LUMBAR 4 VIEW INCLUDING AP, LATERAL, FLEXION, EXTENSION History: ??back pain Comparison: 12/17/2017 Findings: Grade 2 anterolisthesis is present at L5-S1, unchanged on flexion and extension. Lumbar dextroscoliosis is again demonstrated. Mild to moderate multilevel degenerative changes are noted. No fracture is seen. Right upper quadrant clips are visible. Procedure Note Zach Summers MD - 01/10/2018 Exam: XR LUMBAR 4 VIEW INCLUDING AP, LATERAL, FLEXION, EXTENSION History: back pain Comparison: 12/17/2017 Findings: Grade 2 anterolisthesis is present at L5-S1, unchanged on flexion and extension. Lumbar dextroscoliosis is again demonstrated. Mild tomoderate multilevel degenerative changes are noted. No fracture is seen. Right upper quadrant clips are visible. IMPRESSION: Anterolisthesis at L5-S1. This report was electronically signed by ZACH SUMMERS MD on 01/10/2018 1:27 PM . Madan Quach MD DIAGNOSTIC IMAGING O RDERABLES * XR SPINE ENTIRE 2 OR 3VW [...] Madan Quach MD DIAGNOSTIC IMAGING O RDERABLES * MRI LUMBAR SPINE WO CONTRAST (01/05/2018 [...] PM . Shirley Spaulding PA-C MR ORDERABLES Care Teams Clinical Neuropsychologist Relationship Specialty Start Date End Date Marcelino Ahn MD PCP - General 11/25/17
--- OUTSIDE RECORDS SUMMARY | 2024-03-15 14:55 | XMS_ITS | Encounter Summary ---
Author Organization [facility] Address [address] [place] [address] Care Team Providers Care Director Of Accreditation Name Role Phone Marcelino Ahn MD Primary Care Provider [phone] Reason for Visit * Reason Comments Establish Care back pain Encounter Details Date Type Department Care Team (Late st Contact Info) Description 01/10/2018 12:30 PM CDT Office Visit [facility] - Orthopedics [address] [place] [address], [place] [address] Madan Quach MD [address] [place] [address] OF ORTHOPEDIC SURGERY [place], [place] [id number] Chronic midline low back pain with sciatica, sciatica laterality unspecified (Primary Dx); Lumbar spondylosis; Spondylolisthesis, lumbar region; Chronic right-sided low back pain with sciatica, sciatica laterality unspecified Social History Tobacco Use Types Packs/Day [...] - Inhaled Oxygen Concentration - - Weight 94.1 kg (207 lb 8 oz) 01/10/2018 12:35 PM CDT Height 170.2 cm (5' 7 ) 01/10/2018 12:35 PM CDT Body Mass Index 32.5 01/10/2018 12:35 PM CDT documented in this encounter Patient Instructions * Patient Instructions* Brechbuhler, Anna L, RN - 01/10/2018 1:26 PM CDT [facility] Department of Orthopaedic Surgery Orthopaedic Spine Clinic Discharge Form Angelica Cowan 01/10/2018 Thank you for coming in to see us today for your diagnosis of: Chronic midline low back pain with sciatica, sciatica laterality unspecified - Plan: XR LUMBAR SP FLEX EXT 2 OR 3VW Lumbar spondylosis - Plan: meloxicam (MOBIC) 15 MG tablet, Referral to Physical Therapy Spondylolisthesis, lumbar region - Plan: meloxicam (MOBIC) 15 MG tablet, Referral to Physical Therapy Chronic right-sided low back pain with sciatica, sciatica laterality unspecified - Plan: meloxicam (MOBIC) 15 MG tablet, Referral to Physical Therapy Recommended Treatment: Begin Physcial Therapy Begin taking Mobic 15 mg once daily No lifting greater than 10 lbs Please follow-up as needed. Ms. Cwoan had a clinic appointment on 01/10/2018. Please call Indu Ware RN, at [phone] with any questions or concerns. documented in this encounter Progress Notes * Madan Quach MD - 01/10/2018 12:58 PM CDT [facility] Orthopaedic Spine Date of service: January 10, 2018 HPI This is a 62 y.o. female who is here for back and leg pain, he has a long history of back pain and occasional right Leg pain for many years. She has history of trauma as a kid and per patient loss offunction in both legs for months which subsequently resolved. Over the past several years she has been having back and leg pain and has done multiple episodes of treatment and injection [facility] has been helping her but more recently non operative treatment has been not successfully. She is following with a pain clinic which recommended her to get pain pump but her PCP wanted to be evaluated by us for possible surgical treatment. 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 She report sin ability to clear her right foot when she walks and multiple falls. Report decreased sensation over anterior calf and top of foot on the right side. Denies bowel bladder symptoms. majority of pain is in Back and buttock area. PMHx:No past medical history on file. PSHx: No past surgical history on file. Social Hx: Smoking status: Former Smoker Types: Cigarettes Smokeless tobacco: Never Used Alcohol use Not on file Family Hx: family history is not on file. Allergies: No Known Allergies Medications: Current Outpatient Prescriptions: amitriptyline (ELAVIL) 50 MG tablet levothyroxine (SYNTHROID) 112 MCG tablet losartan-hydroCHLOROthiazide (HYZAAR) 100-25 MG tablet sertraline (ZOLOFT) 50 MG tablet topiramate (TOPAMAX) 100 MG tablet ZOLMitriptan (ZOMIG) 5 MG tablet No current facility-administered medications for this visit. Review of Systems: A comprehensive review of systems was negative except for: as discussed in HPI Vitals: Ht 1.702 m (5' 7 ) Wt 94.1 kg (207 lb 8 oz) BMI 32.5 kg/m2 PHYSICAL EXAM: General appearance: healthy, alert, cooperative Neck: C-collar/[place] J: absent, Tenderness to palpation: absent, Back: Tenderness to palpation: midline lower back , range of motion is decreased bilateral upper extremity: Motor: 5/5 director of informatics, 5/5 small finger abduction, 5/5 wrist extension, 5/5 biceps, 5/5 Triceps function,5/5 Deltoid function. Sensory: Intact distally. Dhaliwal's sign is negative right lower extremity: Motor: intact EHL/AT/GSC/Quad/Hamstrings/Hip flexors. 5/5 EHL, 5/5 AT, 5/5 GSC, 5/5 Quad, 5/5 Hamstring, 5/5 Hip flexors. Sensation: deficit noted - L5 dermatome Clonus: absent is unsustained with 1 beats. Reflexes: Biceps: 1/4 Triceps: 1/4 BR: 1/4 Knee Jerk: 1/4 Achilles: 1/4 Babinski: down going left lower extremity: Motor: intact EHL/AT/GSC/Quad/Hamstrings/Hip flexors. 5/5 EHL, 5/5 AT, 5/5 GSC, 5/5 Quad, 5/5 Hamstring, 5/5 Hip flexors. Sensation: Intact distally Clonus: absent is unsustained with 1 beats. Reflexes: Biceps: 1/4 Triceps: 1/4 BR: 1/4 Knee Jerk: 1/4 Achilles: 1/4 Babinski: down going Other findings: Negative SLR, able to walk on tip toes and heels, gait normal Bilateral achilles and hamstrings tightness. Imaging: Scoli XRs and lumbar XRs flexion and extension was obtained and reviewed by me which showsdegenerative scoliosis in lumbar spine, with grade1-2 L5-S1 spondy with no significant movement on flexion/extension. MRI was reviewed which shows lumbar degenerative disc disease with bilateral moderate L5 foraminal stenosis. Assessment/Plan 62 y.o.female with low grade L5-S1 spondy stable, degenerative scoliosis with back and buttock pain. At today's visit I had a lengthy discussion regarding her diagnosis and treatment options with her.I do not surgery of treatment of her lumbar degenerative changes. I recommend to continue PT and more specifically stretching exercises on daily bases. Also gave her prescription for Mobic for 15mg daily. She may go back to work but with restriction in lifting more than 10 Ibs for 3 months. All thequestions were answered. She agreed with the plan. Follow up as needed * Yecenia Foley - 01/10/2018 12:35 PM CDT Patient new doctor previously seen Shirley Spaulding, is here today for consultation for back pain. documented in this encounter Plan of Treatment Not on file documented as of this encounter Results * XR LUMBAR SP FLEX EXT 2 [...] documented in this encounter Visit Diagnoses Diagnosis Chronic midline low back pain with sciatica, sciatica laterality unspecified- Primary Lumbar spondylosis Lumbosacral spondylosis without myelopathy Spondylolisthesis, lumbar region Chronic right-sided low back pain with sciatica, sciatica laterality unspecified documented in this encounter Care Teams Director Of Accreditation Relationship Specialty Start Date End Date Marcelino Ahn MD PCP - General 11/25/17 documented as of this encounter
--- OUTSIDE RECORDS SUMMARY | 2024-03-15 14:55 | XMS_ITS | Encounter Summary ---
Author Organization [facility] Address [facility] [facility] [place] [address] Care Team Providers Care Furnace Caretaker Name Role Phone Marcelino Ahn MD Primary Care Provider [phone] Reason for Visit * Reason Comments Pain Back Encounter Details Date Type Department Care Team (Late st Contact Info) Description 04/06/2018 3:00 PM AQUACULTURE PROGRAM DIRECTOR Office Visit [facility] - Orthopedics [address] [place] [address], [place] [address] Madan Quach MD [address] [place] [address] [place] [address] Lumbar spondylosis (Primary Dx); Chronic right-sided low back pain with sciatica, [...] - Inhaled Oxygen Concentration - - Weight 93.9 kg (207 lb) 04/06/2018 3:21 PM AQUACULTURE PROGRAM DIRECTOR Height 170.2 cm (5' 7 ) 04/06/2018 3:21 PM AQUACULTURE PROGRAM DIRECTOR Body Mass Index 32.42 04/06/2018 3:21 PM AQUACULTURE PROGRAM DIRECTOR documented in this encounter Patient Instructions * Patient Instructions* Anna Ware RN - 04/06/2018 4:18 PM AQUACULTURE PROGRAM DIRECTOR [facility] Department of Orthopaedic Surgery Orthopaedic Spine Clinic Discharge Form Angelica Cowan 04/06/2018 Thank you for coming in to see us today for your diagnosis of: Lumbar Spondylosis intermittent radicular pain Recommended Treatment: Begin Physical Therapy Work Restriction: No lifting greater than 15 lbs. Please follow-up as needed. Ms. Cowan had a clinic appointment on 04/06/2018. Please call Indu Ware RN, at [phone] with any questions or concerns. CULTURE PROGRAM DIRECTOR documented in this encounter Progress Notes * Dulce Maria Harrison MD - 04/06/2018 3:38 PM CST [facility] Orthopedic Spine Surgery Clinic Note Angelica Cowan, 62 y.o., female : 1955 CSN: [id number] Primary Care Physician: Marcelino Ahn MD Diagnosis/Procedures Chronic back pain Date of this clinic visit: 04/06/2018 HPI This is a 62 y.o. female who is here for a follow-up clinic appointment, regarding her chronic low back pain. Since she was last seen in clinic she has continued the home PT exercises. She has been taking the NSAIDs but they have not helped with the pain. 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 She is endorsing new R buttock pain that radiates down the side of her leg to her foot over the past couple of months that is worse withsitting and going up the stairs. - Bowel/Bladder incontinence or retention: denies - Numbness/paresthesias to extremities: denies - Hand clumsiness/loss of fine motor skills: denies - BMI: 32.42 Objective Ht 1.702 m (5' 7 ) Wt 93.9 kg (207 lb) BMI 32.42 kg/m2 PMHx No past medical history on file. PSHx No past surgical history on file. Social Hx Social History Substance Use Topics ??? Smoking status: Former Smoker Types: Cigarettes ??? Smokeless tobacco: Never Used ??? Alcohol use Not on file Family Hx family history is not on file. Allergies No Known Allergies Medications Current Outpatient Prescriptions Medication ??? amitriptyline (ELAVIL) 50 MG tablet ??? levothyroxine (SYNTHROID) 112 MCG tablet ??? losartan-hydroCHLOROthiazide (HYZAAR) 100-25 MG tablet ??? meloxicam (MOBIC) 15 MG tablet ??? sertraline (ZOLOFT) 50 MG tablet ??? topiramate (TOPAMAX) 100 MG tablet ??? ZOLMitriptan (ZOMIG) 5 MG tablet No current facility-administered medications for this visit. Review of Systems A 12 point review of systems was performed and was negative except for what was mentioned in the HPI Physical Exam General appearance: awake, cooperative, NAD CV: Regular rate. Pulm: No audible wheezing, no use of accessory muscles Abd: soft, nontender, nondistended Musculoskeletal: Neck: - C-collar/[place] J: absent - Tenderness to palpation: absent - ROM: full range of motion Back: - Tenderness to palpation: absent - ROM: full range of motion. Posture: - Erect posture with no cervical thrust, list, or torticollis noted Bilateral Upper Extremity: - Motor: Shoulder Abduction 5/5 Elbow Extension 5/5 Elbow Flexion 5/5 Wrist Extension 5/5 Wrist Flexion 5/5 Finger Flexion 5/5 Finger Abduction 5/5 - Sensory: intact to light touch - Dhaliwal's sign is negative - Reflexes: Biceps: Normal Triceps: Normal BR: Normal Bilateral Lower Extremity: - Motor: Hip Flexion 5/5 Knee extension 5/5 Knee flexion 5/5 Ankle Dorsiflexion 5/5 Ankle Plantarflexion 5/5 Great Toe Extension 5/5 - Sensation: intact to light touch distally - Straight Leg Raise: negative bilaterally - Clonus: absent - Reflexes: Knee Jerk: Normal Imaging - XRs L-spine flex/ex taken in clinic 04/06 and reviewed. Imaging demonstrates degenerative scoliosisof the Lspine with grade 1 L5/S1 anterolisthesis Assessment/Plan: 62 y.o. female with degenerative scoliosis with grade 1 L5/S1 anterolisthesis 1. Patient was counseled to the nature of their diagnosis and demonstrated understanding. Questionssolicited and answered. 2. Continue non-operative treatment 3. Work restrictions for no lifting more than 10-15lbs 4. PT/OT, MUST DO THERAPY, new script provided 5. Return to clinic FREDERICK Harrison MD 04/06/2018 3:38 PM CULTURE PROGRAM DIRECTOR Associated attestation - Madan Quach MD - 04/06/2018 4:29 PM AQUACULTURE PROGRAM DIRECTOR I have seen and examined the patient with the resident and I agree with the findings and plan of care as documented by resident. In addition, female with lumbar spondylosis seen couple months ago in my clinic at that point was instructed to start physical therapy and medication for nonoperative treatment of her arthritis. She is not able to do physical therapy as she had some family related issues, he does have pain in addition we provided some restriction to avoid heavy lifting. She is here today for follow-up states that the the restrictions we provided and soon and she has not been able toparticipate in physical therapy. I recommend her to go back to start physical therapy continue NSAIDs for pain control and provided her with the restrictions until she finishes a course of physical therapy. Follow-up as needed. 04/06/18 Madan Quach MD Equal Opportunity Officer of Orthopaedics Adult and Pediatric Spine Surgery documented in this encounter Plan of Treatment Not on file documented as of this encounter Visit Diagnoses Diagnosis Lumbar spondylosis- Primary Lumbosacral spondylosis without myelopathy Chronic right-sided low back pain with sciatica, sciatica laterality unspecified documented in this encounter Care Teams Furnace Caretaker Relationship Specialty Start Date End Date Marcelino Ahn MD PCP - General 11/25/17 documented as of this encounter
--- OUTSIDE RECORDS SUMMARY | 2024-03-15 14:55 | XMS_ITS | Encounter Summary ---
Author Organization [facility] Address [facility] [place] [address] Care Team Providers Care Twenty One Dealer Name Role Phone Marcelino Ahn MD Primary Care Provider [phone] Reason for Visit * Reason Comments Pain Back Encounter Details Date Type Department Care Team (Late st Contact Info) Description 03/06/2019 2:30 PM LOG RAFTER Office Visit [facility] - Orthopedics [address] [place] [address], [place] [address] Madan Quach MD [address] [place] [address] OF ORTHOPEDIC SURGERY [place], [place] [id number] Chronic midline low back pain with sciatica, [...] 104.8 kg (231 lb) 03/06/2019 2:46 PM LOG RAFTER Height 170.2 cm (5' 7 ) 03/06/2019 2:46 PM LOG RAFTER Body Mass Index 36.18 03/06/2019 2:46 PM LOG RAFTER documented in this encounter Patient Instructions * Patient Instructions* Jeremiah Bryson MD - 03/06/2019 3:49 PM LOG RAFTER Angelica Cowan 03/06/2019 Follow up: as needed Please contact our clinic call center at if you need to schedule or change an appointment. For medical emergencies please call 911. Please contact Lucian Pringle RN at or through [employer] if you have any further questions or concerns. [facility] office contact information: [facility] hospital ([facility] [address] [place] [address] [place] [address] March 06, 2019 To Whom It May Concern: Please use this letter to document that Angelica Cowan, : 1955, was in to see Madan Quach MD on 03/06/2019. Thank you. Sincerely, Madan Quach MD [facility] RAFTER documented in this encounter Progress Notes * Jeremiah Bryson MD - 03/06/2019 3:23 PM CST [facility] Orthopedic Spine Surgery Clinic Note Angelica Cowan, 63 year old, female : 1955 CSN: [id number] Primary Care Physician: Marcelino Ahn MD Diagnosis/Procedures 1.) Degenerative scoliosis 2.) Grade 1 L5/S1 spondylolisthesis HPI Date of this clinic visit: 03/06/2019 This is a 63 year old female with history of the above who is here for follow-up clinic appointment. Last seen 04/06/18, at this visit we discussed limiting work, no lifting >15 lbs, and continued PT with PRN follow up. Also sent mobic, but pt. States she was not ever able to get this filled. Today she reports she is having a problem with her right foot. She feels like she is unable to lift her r ight foot enough to clear it, has been catching her foot on raised objects such as steps and yard lights. Pain is located in the low back, and is described as dull achy without radiation to legs. Patient does have pain at night. Patient is able to walk/stand for 45 minutes -1 hour without pain. Ambulates with no assistive device. For pain control the patient has used ibuprofen with minimal relief. Leaning forward makes it better and activity makes it worse. 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 Denies new numbness/paresthesias or bowel/bladder retention or incontinence. ROS otherwise negative. 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 PSHx No past surgical history on file. Social Hx Social History Tobacco Use ??? Smoking status: Former Smoker Types: Cigarettes ??? Smokeless tobacco: Never Used Substance Use Topics ??? Alcohol use: Not on file Family Hx family history is not on file. Allergies No Known Allergies Medications Current Outpatient Medications Medication ??? amitriptyline (ELAVIL) 50 MG tablet ??? aspirin (ASPIRIN) 81 MG tablet ??? Biotin 24362 MCG TABS ??? ibuprofen (MOTRIN) 800 MG tablet ??? levothyroxine (SYNTHROID) 112 MCG tablet ??? losartan-hydroCHLOROthiazide (HYZAAR) 100-25 MG tablet ??? meloxicam (MOBIC) 15 MG tablet ??? sertraline (ZOLOFT) 50 MG tablet ??? topiramate (TOPAMAX) 100 MG tablet ??? ZOLMitriptan (ZOMIG) 5 MG tablet No current facility-administered medications for this visit. Review of Systems - Bowel/Bladder incontinence or retention: denies - Numbness/paresthesias to extremities: as above - Hand clumsiness/loss of fine motor skills: denie - Balance problems: occasional - BMI: 36 Review of all other systems was negative. Physical Exam General appearance: awake, cooperative, NAD Neck: -Tenderness to palpation: absent -ROM: full range of motion Back: -Tenderness to palpation: absent Posture - Erect posture with no cervical thrust, list, or torticollis noted Bilateral Upper Extremity: - Motor: Shoulder Abduction (C5) 5/5 Elbow Extension (C7) 5/5 Elbow Flexion (C5-palm up; C6 - thumb up) 5/5 Wrist Extension (C6) 5/5 Wrist Flexion (C7) 5/5 Finger Flexion (C8) 5/5 Finger Abduction (T1) 5/5 - Sensory: intact to light touch - Dhaliwal's sign is negative Bilateral Lower Extremity: - Motor: Hip Flexion (L2/3) 5/5 Knee Flexion 5/5 Knee Extension (L4) 5/5 Ankle Dorsiflexion (L5) 5/5 Great Toe Extension (L5) 5/5 Ankle Plantarflexion (S1) 5/5 - Sensation: intact to light touch distally - Straight Leg Raise: negative bilaterally - Clonus: absent Gait - Walks with reciprocal heel/toe gait. Imaging - XR lumbar spine taken and reviewed. Imaging demonstrates degenerative scoliosis of L spine with grade 1 L5/S1 spondylolisthesis Assessment/Plan: 63 year old female with degenerative scoliosis of lumbar spine with grade 1 L5/S1 spondylolisthesis - Patient was counseled to the nature of their diagnosis and demonstrated understanding - Lifting/Activity restrictions: no lifting >15 lbs - Recommend PT if she can afford it, if not, she should do exercise sheet given in clinic today - PT script given - Follow up PRN - Follow up Imaging: XR L spine Jeremiah Bryson MD 03/06/2019 3:23 PM I have seen and examined the patient with the resident on and I agree with the findings and plan ofcare as documented by resident. I spent more than 25 minutes seeing patient, reviewing images and discussion case with colleagues and formulating the plan. Greater than 50% of that time was spent in counseling and/or coordination of care. Plan for PT. 03/06/19 Madan Quahc MD Physically Impaired Teacher of Orthopaedics Adult and Pediatric Spine Surgery RAFTER documented in this encounter Plan of Treatment Not on file documented as of this encounter Visit Diagnoses Diagnosis Chronic midline low back pain with sciatica, sciatica laterality unspecified- Primary Lumbar spondylosis Lumbosacral spondylosis without myelopathy Spondylolisthesis, lumbar region Chronic right-sided low back pain with sciatica, sciatica laterality unspecified documented in this encounter Care Teams Twenty One Dealer Relationship Specialty Start Date End Date Marcelino Ahn MD PCP - General 11/25/17 documented as of this encounter
--- OUTSIDE RECORDS SUMMARY | 2024-03-15 14:56 | XMS_ITS | Encounter Summary ---
Author Organization [facility] Address [address] [place] [address]. [place] [address] [place] [address] Care Team Providers Care Geospatial Technologist Name Role Phone Jonna Irvin MD Primary Care Provider [phone] Encounter Details Date Type Department Care Team (Latest Contact Info) Description 04/12/2013 Abstract [facility] Medical Group Romero Dorsey MD [address] [address] Social History Tobacco Use Types Packs/Day Years [...] Name Priority Date/Time Associated Diagnosis Comments XR SHOULDER LT MIN 2V Routine 04/12/2013 1:57 PM INSTRUCTOR EXTENSION WORK documented in this encounter Results * XR SHOULDER LT MIN 2V (04/12/2013 1:57 PM INSTRUCTOR EXTENSION WORK) Anatomical Region Laterality Modality Shoulder Radiographic Jami ging 04/12/2013 1:57 PM INSTRUCTOR EXTENSION WORK 04/12/2013 1:57 PM INSTRUCTOR EXTENSION WORK Narrative 04/12/2013 4:52 PM INSTRUCTOR EXTENSION WORK RAF ROMERO ORDERING MD: ROMERO DORSEY MD ?? ACCT: [id number] ?? ADMIT/SERVICE DATE: 04/12/13 DISCHARGE DATE: ?? : 1955 PT TYPE: REG CLI ?? SEX: F ORD SITE: [facility] ? STUDY DATE REPORT # PROCEDURE CODE PROCEDURE ?? 04/12/13 [id number] SHLDR2+VL XR SHOULDER 2+ VIEW LT ? EXTORDERID ? [id number] ? ACCESSION NUMBER ?? [id number] ?CHART DOCUMENT ? IMPRESSION: ? UNREMARKABLE LEFT SHOULDER. ? HISTORY: ??TRAUMATIC INJURY OF THE LEFT SHOULDER. ? TWO VIEWS OF THE LEFT SHOULDER 04/12/13 ? COMPARISON: ??NONE. ? TECHNIQUE: ??TWO VIEWS OF THE LEFT SHOULDER. ? FINDINGS: ??HUMERAL HEAD RESTS WITHIN THE GLENOID. ??ACROMIOCLAVICULAR JOINT ?? IS WITHIN NORMAL LIMITS. ??NO EVIDENCE OF AN ACUTE FRACTURE OR DISLOCATION. ? ELECTRONICALLY SIGNED BY: ?? GORDO BLANKENSHIP M.D. 04/12/2013 16:50 ?? GORDO BLANKENSHIP M.D. ? D: ??04/12/2013 ??2:11 P ??#[id number] ?? T: ??04/12/2013 ??2:40 P/MA ? CC: ?JONNA IRVIN M.D. ?ROMERO DORSEY M.D. ? Radiology image is available. Click on Image Link above. Procedure Note Karla Caal MD - 01/20/2018 ARF ROMERO ORDERING MD: ROMERO DORSEY MD ACCT: [id number] ADMIT/SERVICE DATE: 04/12/13 DISCHARGE DATE: : 1955 PT TYPE: REG CLI SEX: F ORD SITE: [facility] OUTPATIENT IMAGING STUDY DATE REPORT # PROCEDURE CODE PROCEDURE 04/12/13 [id number] SHLDR2+VL XR SHOULDER 2+ VIEW LT EXTORDERID [id number] ACCESSION NUMBER [id number] CHART DOCUMENT IMPRESSION: UNREMARKABLE LEFT SHOULDER. HISTORY: TRAUMATIC INJURY OF THE LEFT SHOULDER. TWO VIEWS OF THE LEFT SHOULDER 04/12/13 COMPARISON: NONE. TECHNIQUE: TWO VIEWS OF THE LEFT SHOULDER. FINDINGS: HUMERAL HEAD RESTS WITHIN THE GLENOID. ACROMIOCLAVICULARJOINT IS WITHIN NORMAL LIMITS. NO EVIDENCE OF AN ACUTE FRACTURE ORDISLOCATION. ELECTRONICALLY SIGNED BY: GORDO BLANKENSHIP M.D. 04/12/2013 16:50 GORDO BLANKENSHIP M.D. P #[id number] P/MA CC: Emiliano REYES M.D. Radiology image is available. Click on Image Link above. Romero Dorsey MD GENERAL IMAGING Final Resu lt documented in this encounter Visit Diagnoses Not on filedocumented in this encounter Care Teams Geospatial Technologist Relationship Specialty Start Date End Date Jonna Irvin MD PCP - General 04/12/13 documented as of this encounter
--- OUTSIDE RECORDS SUMMARY | 2024-03-15 14:56 | XMS_ITS | Encounter Summary ---
Author Organization [facility] Address [address] [place] [address]. [place] [address] Care Team Providers Care Macaroni Maker Name Role Phone Ángel Bishop MD Primary Care Provider [phone] Encounter Details Date Type Department Care Team (Latest Contact Info) Description 04/10/2013 Abstract [facility] Medical Group Social History Tobacco Use Types Packs/Day Years [...] on filedocumented in this encounter Care Teams Macaroni Maker Relationship Specialty Start Date End Date Ángel Bishop MD PCP - General 04/12/13 documented as of this encounter
--- OUTSIDE RECORDS SUMMARY | 2024-03-15 14:56 | XMS_ITS | Encounter Summary ---
Author Organization [facility] Address [address] [place] [address]. [place] [address] [place] [address] Care Team Providers Care Junior Php Developer Name Role Phone Ángel Bishop MD Primary Care Provider [phone] Encounter Details Date Type Department Care Team (Late st Contact Info) Description 04/27/2013 Abstract [facility] Medical [facility] - [facility] [address], [address] [place] [address] Romero Dorsey MD [address] [facility] [address] [place] [address] Social History Tobacco Use Types Packs/Day Years [...] Comments Blood Pressure 136/84 04/27/2013 10:34 AM MACHINE DESIGN TEACHER Pulse 82 04/27/2013 10:34 AM MACHINE DESIGN TEACHER Temperature - - Respiratory Rate - - Oxygen Saturation - - Inhaled Oxygen Concentration - - Weight 99.8 kg (220 lb) 04/27/2013 10:34 AM MACHINE DESIGN TEACHER Height 170.2 cm (5' 7 ) 04/27/2013 10:34 AM MACHINE DESIGN TEACHER Body Mass Index 34.46 04/27/2013 10:34 AM MACHINE DESIGN TEACHER documented in this encounter Progress Notes * Romero Dorsey MD - 04/27/2013 10:15 AM CST Reason For Visit Chronic Recheck Visit History of Present Illness She is being followed for a work injury to her left shoulder that occurred on March 09, 2013, when her feet slid out from under her. On my initial visit two weeks ago, the diagnosis was left shoulder injury after fall with adhesive capsulitis. Rotator cuff injury could not be excluded. MRI scan was requested and has been done since then. She is taking tramadol for pain. She is not certain the ibuprofen is doing much. PHYSICAL EXAMINATION: I had reduced motion last visit, but when she is supine now and we go slowly,she can get forward flexion to 150 degrees and abduction to about 160. When supine, external rotation is about 45 and when carefully done, external rotation with the arm abducted is about 90. There is pain when I resist her on the supraspinatus, there is some weakness, and pain and weakness on the e xternal rotators also. IMAGING: MRI scan of the left shoulder done recently at [facility] shows tear of the supraspinatus and infraspinatus with retraction of about 1.5 cm. REVISED DIAGNOSIS: Left shoulder rotator cuff tear with retraction. TREATMENT: At this time, I recommend left shoulder arthroscopy with rotator cuff repair. Her motionis adequate. She does not have true adhesive capsulitis, just guarding with pain. She wishes to go ahead and schedule this. Authorization will be requested. New prescription was sent for tramadol 50 mg #30. She will return in two weeks. WORK STATUS: At this time, she is continued off work on total temporary disability until estimated May 18, 2013. ANA/GORDO/jean-pierre Job [id number] ? [id number] Active Problems 1. Adhesive Capsulitis Of Left Shoulder 726.0 2. Joint Pain, Localized In The Left Shoulder 719.41 3. Joint Pain, Localized In The Right Shoulder 719.41 Past Medical History 1. History of Depression 311 2. History of Esophageal Reflux 530.81 3. History of Hypertension 401.9 4. History of Hypothyroidism 244.9 5. History of Migraine Headache 346.90 6. History of Overweight 278.02 Surgical History 1. History of Appendectomy 2. History of Cholecystectomy 3. History of Exploratory Laparoscopy Family History 1. Family history of Cardiomegaly 2. Family history of Depression 3. Family history of Diabetes Mellitus V18.0 4. Family history of Heart Disease V17.49 5. Family history of Hypercholesterolemia 6. Family history of Hypertension V17.49 7. Family history of Overweight 8. Family history of Stroke Syndrome V17.1 Social History ?? Being A Social Drinker ?? Never A Smoker Current Meds 1. Amitriptyline HCl 100 MG Oral Tablet; Therapy: 18Dec2012 to 2. BuPROPion HCl ER (XL) 300 MG Oral Tablet Extended Release 24 Hour; Therapy: 18Dec2012 to 3. Ibuprofen 800 MG Oral Tablet; TAKE 1 TABLET 3 TIMES DAILY; Therapy: 12Apr2013 to (Evaluate:[id number]) Requested for: 12Apr2013; Last Rx:12Apr2013 4. Levothyroxine Sodium 200 MCG Oral Tablet; Therapy: 21Dec2012 to 5. Levothyroxine Sodium 25 MCG Oral Tablet; Therapy: 21Dec2012 to 6. Losartan Potassium-HCTZ 100-12.5 MG Oral Tablet; Therapy: 16Jan2013 to 7. Topiramate 100 MG Oral Tablet; Therapy: 24Nov2012 to 8. TraMADol HCl 50 MG Oral Tablet; TAKE 1 TO 2 TABLETS EVERY 4 TO 6 HOURS NEEDED FOR PAIN; Therapy: 12Apr2013 to (Last Rx:12Apr2013) 9. ZOLMitriptan 5 MG Oral Tablet; Therapy: 18Jan2013 to Allergies 1. Iodine SOLN Vitals 27Apr2013 10:34AM Heart Rate 82 Respiration 18 Systolic 136 Diastolic 84 BMI Calculated 34.53 BSA Calculated 2.1 Height 5 ft 7 in Weight 220 lb Assessment 1. Joint Pain, Localized In The Left Shoulder 719.41 2. Joint Pain, Localized In The Right Shoulder 719.41 3. Adhesive Capsulitis Of Left Shoulder 726.0 4. Complete Tear Of Left Rotator Cuff Tendon 727.61 Plan 1. Follow-up visit in 2 weeks Outpatient Follow-up Requested for: 27Apr2013 2. TraMADol HCl 50 MG Oral Tablet; TAKE 1 TO 2 TABLETS EVERY 4 TO 6 HOURS NEEDED FOR PAIN; Therapy: 12Apr2013 to (Last Rx:27Apr2013) Signatures Electronically signed by : Romero Dorsey M.D.; Apr 27 2013 5:28PM (Author) Electronically signed by : Romero Dorsey M.D.; Apr 30 2013 1:17PM (Author) INE DESIGN TEACHER documented in this encounter Plan of Treatment Not on file documented as of this encounter Visit Diagnoses Not on filedocumented in this encounter Care Teams Junior Php Developer Relationship Specialty Start Date End Date Ángel Bishop MD PCP - General 04/12/13 documented as of this encounter
--- OUTSIDE RECORDS SUMMARY | 2024-03-15 14:56 | XMS_ITS | Encounter Summary ---
Author Organization [facility] Address [address] [place] [address]. [place] [address] Care Team Providers Care Official Court Interpreter Name Role Phone Ángel Bishop MD Primary Care Provider [phone] Encounter Details Date Type Department Care Team (Latest Contact Info) Description 04/20/2013 Abstract [facility] Medical Group Social History Tobacco Use [...] on filedocumented in this encounter Care Teams Official Court Interpreter Relationship Specialty Start Date End Date Ángel Bishop MD PCP - General 04/12/13 documented as of this encounter
--- OUTSIDE RECORDS SUMMARY | 2024-03-15 14:56 | XMS_ITS | Encounter Summary ---
Author Organization [facility] Address [address] [place] [address]. [place] [id number] [place] [address] Care Team Providers Care Arc Welding Machine Operator Name Role Phone Ángel Bishop MD Primary Care Provider [phone] Encounter Details Date Type Department Care Team (Late st Contact Info) Description 04/12/2013 Abstract [facility] [address] [place] [address] Karla Caal MD Social History Tobacco Use Types Packs/Day [...] as of this encounter Visit Diagnoses Diagnosis Pain in joint, shoulder region documented in this encounter Care Teams Arc Welding Machine Operator Relationship Specialty Start Date End Date Ángel Bishop MD PCP - General 04/12/13 documented as of this encounter
--- OUTSIDE RECORDS SUMMARY | 2024-03-15 14:56 | XMS_ITS | Encounter Summary ---
Author Organization [facility] Address [address] [place] [address]. [place] [address] Care Team Providers Care Component Design Engineer Name Role Phone Ángel Bishop MD Primary Care Provider [phone] Encounter Details Date Type Department Care Team (Latest Contact Info) Description 03/09/2013 Abstract [facility] Medical Group Social History Tobacco Use Types [...] on filedocumented in this encounter Care Teams Component Design Engineer Relationship Specialty Start Date End Date Ángel Bishop MD PCP - General 04/12/13 documented as of this encounter
--- OUTSIDE RECORDS SUMMARY | 2024-03-15 14:56 | XMS_ITS | Encounter Summary ---
Author Organization [facility] Address [address] [place] [address]. [place] [address] Care Team Providers Care Dynamo Repairer Name Role Phone Ángel Bishop MD Primary Care Provider [phone] Encounter Details Date Type Department Care Team (Latest Contact Info) Description 05/03/2013 Abstract [facility] Medical Group Social History [...] on filedocumented in this encounter Care Teams Dynamo Repairer Relationship Specialty Start Date End Date Ángel Bishop MD PCP - General 04/12/13 documented as of this encounter
--- OUTSIDE RECORDS SUMMARY | 2024-03-15 14:56 | XMS_ITS | Encounter Summary ---
Author Organization [facility] Address [address] [place] [address]. [place] [address] [place] [address] Care Team Providers Care Steel Post Installer Name Role Phone Ángel Bishop MD Primary Care Provider [phone] Encounter Details Date Type Department Care Team (Late st Contact Info) Description 04/12/2013 Abstract [facility] - [facility] [address], [address] [place] [address] Romero Dorsey MD [address] [facility] [address] [place] [id number] Social History Tobacco Use Types Packs/Day Years Used Date Smoking Tobacco: Never Assessed Comments Unknown Sex and Gender Information Value Date Recorded Sex Assigned at Not on file Legal Sex Female 7:44 PM CDT Gender Identity Not on file Sexual Orientation Not on file documented as of this encounter Last Filed Vital Signs Vital Sign Reading Time Taken Comments Blood Pressure 138/90 04/12/2013 3:08 PM CUSTOMER SALES SPECIALIST Pulse 76 04/12/2013 3:08 PM CUSTOMER SALES SPECIALIST Temperature - - Respiratory Rate - - Oxygen Saturation - - Inhaled Oxygen Concentration - - Weight 99.8 kg (220 lb) 04/12/2013 3:08 PM CUSTOMER SALES SPECIALIST Height 170.2 cm (5' 7 ) 04/12/2013 3:08 PM CUSTOMER SALES SPECIALIST Body Mass Index 34.46 04/12/2013 3:08 PM CUSTOMER SALES SPECIALIST documented in this encounter Progress Notes * Romero Dorsey MD - 04/12/2013 2:00 PM CST Reason For Visit New Patient Visit History of Present Illness This 57-year-old lady is seen about a work injury. She is sent by Dr. Bishop. 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 She is left hand dominant. She thinks she landed with her left arm caught underneath her. She was able to get up and drive herself back to the post offi ce. She did notice some popping in the shoulder. She was seen at the emergency room at [facility] and was dispensed a sling and referred to physician for further followup. She did see her physician and got some tramadol for pain relief. The arm has improved a little bit, but she has been offwork since the day of the injury. She has had no previous problems with this shoulder or arm at all. Most of the discomfort now is just on the upper arm and deltoid area. This is awakening her some at night. She has had some ibuprofen and tramadol for this, but is not really using any medications currently. She does not think there has been any loss of movement for this. PHYSICAL EXAMINATION: She has good range of motion of the cervical since without any discomfort. Active motion of the left shoulder today is 95 (120 when she is supine), 20, 60, 10, L2, 60. She has pain when I resist her on the supraspinatus, and there is some weakness also. She also has pain and weakness on the external rotators when I test. There is not much tenderness over the bony landmarks of the shoulder. IMAGING: X-ray films of the left shoulder taken today at [facility] appear normal. X-rays of the left shoulder from [facility] on 03/09/2013 show no acute fracture or dislocation, and mild degenerative changes. There is a lucent lesion with sclerotic margins at the physeal scar, likely incidental. Films from the same date and location of the thoracic spine show degenerative changes in the thoracic spine without acute fracture of subluxation, and films from the lumbarspine from the same date and location show no definite acute osseus abnormality. There is anterolisthesis of L4 on L5, new compared to prior exam of 2007 and degenerative disk disease and facet degene ration, somewhat more advanced than on the previous exam. DIAGNOSIS: 1.Left shoulder injury after fall with adhesive capsulitis. 2.Cannot exclude rotator cuff injury. TREATMENT: MRI scan is requested for the left shoulder to get a better idea of the pathology there.In the interim, she was prescribed tramadol 50 mg #30 and Motrin 800 mg #60. She will return when this is completed, hopefully within two weeks. WORK STATUS: At this time, she is continued off work on total temporary disability until an estimated April 27, 2013. ANA/GORDO/jean-pierre Job [id number] ? [id number] Review of Systems Constitutional: negative. Eyes: negative. ENT: hearing loss. Cardiovascular: negative. Respiratory: negative. Gastrointestinal: nausea, vomiting and heartburn. Genitourinary: negative. Musculoskeletal: negative. Integumentary negative. Negative negative Psychiatric: negative. negative Hematologic and Lymphatic: negative. Active Problems 1. Joint Pain, Localized In The Left [...] Amitriptyline HCl 100 MG Oral Tablet; Therapy: [id number] to 2. BuPROPion HCl ER (XL) 300 MG Oral Tablet Extended Release 24 Hour; Therapy: [id number] to 3. Levothyroxine Sodium 200 MCG Oral Tablet; Therapy: 72Kva5629 to 4. Levothyroxine Sodium 25 MCG Oral Tablet; Therapy: 13Zfl8642 to 5. Losartan Potassium-HCTZ 100-12.5 MG Oral Tablet; Therapy: 16Jan2013 to 6. Topiramate 100 MG Oral Tablet; Therapy: 32Kre6642 to 7. ZOLMitriptan 5 MG Oral Tablet; Therapy: 18Jan2013 to Allergies 1. Iodine SOLN Vitals 12Apr2013 03:08PM Heart Rate 76 Respiration 18 Systolic 138 Diastolic 90 BMI Calculated 34.53 BSA Calculated 2.1 Height 5 ft 7 in Weight 220 lb Assessment 1. Joint Pain, Localized In The Right Shoulder 719.41 2. Joint Pain, Localized In The Left Shoulder 719.41 3. Adhesive Capsulitis Of Left Shoulder 726.0 Plan 1. XR SHOULDER 2+ VIEW LT ( Routine ) Requested for: 11Apr2013 Signatures Electronically signed by : Romero Dorsey M.D.; Apr 15 2013 2:32PM (Author) Electronically signed by : Romero Dorsey M.D.; Apr 19 2013 8:16PM (Author) OMER SALES SPECIALIST documented in this encounter Plan of Treatment Not on file documented as of this encounter Visit Diagnoses Not on filedocumented in this encounter Care Teams Steel Post Installer Relationship Specialty Start Date End Date Ángel Bishop MD PCP - General 04/12/13 documented as of this encounter
--- OUTSIDE RECORDS SUMMARY | 2024-03-15 14:56 | XMS_ITS | Encounter Summary ---
Author Organization [facility] Address [address] [place] [address]. [place] [address] Care Team Providers Care Optometrist Owner Name Role Phone Ángel Bishop MD Primary Care Provider [phone] Encounter Details Date Type Department Care Team (Latest Contact Info) Description 04/19/2013 [facility] Social History Tobacco Use Types [...] on filedocumented in this encounter Care Teams Optometrist Owner Relationship Specialty Start Date End Date Ángel Bishop MD PCP - General 04/12/13 documented as of this encounter
--- OUTSIDE RECORDS SUMMARY | 2024-03-15 14:56 | XMS_ITS | Encounter Summary ---
Author Organization [facility] Address [address] [place] [address]. [place] [address] Care Team Providers Care Functional Tester Name Role Phone Ángel Bishop MD Primary Care Provider [phone] Encounter Details Date Type Department Care Team (Latest Contact Info) Description 05/08/2013 Abstract [facility] Social History Tobacco Use [...] on filedocumented in this encounter Care Teams Functional Tester Relationship Specialty Start Date End Date Ángel Bishop MD PCP - General 04/12/13 documented as of this encounter
--- OUTSIDE RECORDS SUMMARY | 2024-03-15 14:56 | XMS_ITS | Encounter Summary ---
Author Organization [facility] Address [address] [place] [address]. [place] [address] Care Team Providers Care Conservation Coordinator Name Role Phone Ánegl Bishop MD Primary Care Provider [phone] Encounter Details Date Type Department Care Team (Latest Contact Info) Description 05/09/2013 Abstract [facility] Social History Tobacco Use Types [...] on filedocumented in this encounter Care Teams Conservation Coordinator Relationship Specialty Start Date End Date Ángel Bishop MD PCP - General 04/12/13 documented as of this encounter
--- OUTSIDE RECORDS SUMMARY | 2024-03-15 14:58 | XMS_ITS | CONTINUITY OF CARE DOCUMENT ---
Author Name adela chapman Address Unknown Organization [facility] Address [address] [facility] [address] [place] [address] Phone [phone] Care Team Providers Care Drivers' Cash Clerk Name Role Phone Luis Rizo MD Unavailable [phone] JAILYN SENIOR MD Unavailable JAILYN SENIOR MD Unavailable [phone] PROBLEMS Condition Status Date Provider Notes Bradycardia active Tracy Kaur INSURANCE PROVIDERS Payer name Policy type / Coverage type [place] [employer] party ID [facility] [id number] HISTORY OF PROCEDURES Procedure Date Procedure Name Provider Procedure Notes S tatus Leslie, 24 or 48 Jose Giles MD comp leted
--- OUTSIDE RECORDS SUMMARY | 2024-03-15 14:59 | XMS_ITS | Clinical Summary ---
Author Organization 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 Refuses to try alternative statins Medications ZOLMitriptan (ZOMIG) 5 mg tablet Take 1 tablet (5 mg total) by mouth once as needed for migraine Active topiramate (TOPAMAX) 100 mg tablet Take 2 tablets (200 mg total) by mouth 2 (two) times a day 11/20/19 18 Active brimonidine (ALPHAGAN) 0.15 % ophthalmic solution 1 drop 2 (two) times a day 07/03/19 23 Active aspirin 81 mg enteric coated tablet Take 1 tablet (81 mg total) by mouth daily Active amitriptyline (ELAVIL) 50 mg tablet Take 1.5 tablets (75 mg total) by mouth nightly Active albuterol HFA (PROVENTIL HFA,VENTOLIN HFA,PROAIR HFA) 90 mcg/actuation inhaler Inhale 2 puffs 2 (two) times a day 08/08/19 23 Active biotin 10 mg tablet Take 1 tablet (10 mg total) by mouth daily Active cholecalciferol (VITAMIN D-3) 99264 unit tablet Take 1 tablet (10,000 Units total) by mouth 4 (four) times a day Active phytonadione, vit K1, (phytonadione, vitamin K1,) 100 mcg tablet Take 1 tablet (100 mcg total) by mouth 2 (two) times a day Active vitamin E 400 unit capsule Take 1 capsule (400 Units total) by mouth daily Active UNABLE TO FIND Take 1 each by mouth daily Med Name: Brain Health Active lysine 1,000 mg tablet Take 1 tablet by mouth daily Active folic acid (FOLVITE) 800 mcg tablet Take 1 tablet (800 mcg total) by mouth daily Active TURMERIC ORAL Take 1,600 mg by mouth daily Active magnesium oxide 400 mg magnesium tablet Take 400 mg by mouth daily Active Trelegy Ellipta 200-62.5-25 mcg inhaler Inhale 1 puff daily 12/23/19 23 Active montelukast (SINGULAIR) 10 mg tablet Take 1 tablet (10 mg total) by mouth daily 12/25/19 23 Active benzonatate (TESSALON) 200 mg capsule Take 1 capsule (200 mg total) by mouth 3 (three) times a day 12/19/19 23 Active SUMAtriptan (IMITREX) 100 mg tablet Take 1 tablet (100 mg total) by mouth once as needed 11/25/19 23 Active Qulipta 60 mg tablet Take 1 tablet by mouth daily 04/06/19 24 Active lutein-zeaxanthin 25-5 mg capsule Take by mouth Gummy Active chromium picolinate 1,000 mcg tablet Take by mouth Activ e calcium carbonate-vitamin D3 (CALTRATE 600 + D) 1500 mg (600 mg elemental) -400 units per tablet Take 1 tablet by mouth daily Active cyanocobalamin (Vitamin B-12) 2,500 mcg tablet, sublingualIndicati ons:Prevention of Vitamin B12 Deficiency Active zinc gluconate 50 mg tablet Take 1 tablet (50 mg total) by mouth daily Active cetirizine 10 mg capsule Take by mouth daily Active vit D3-vit F-ropiqceul-nukv [phone] bpwg-qjz-jo-mg tablet Take 4 capsules by mouth daily Active sertraline (ZOLOFT) 100 mg tabletIndications: Severe episode of recurrent major depressive disorder, without psychotic features (HCC) Take 1.5 tablets (150 mg total) by mouth daily 135 tablet 1 05/03/19 24 Active Additional Information Patient taking differently: 200 mgoral Daily, Reported on 11/17/2023 levothyroxine (SYNTHROID) 175 mcg tabletIndications: Acquired hypothyroidism Take 1 tablet (175 mcg total) by mouth early childhood services coordinator before 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 90 tablet 1 08/13/19 24 Active omeprazole (PriLOSEC) 40 mg capsule Take 1 capsule (40 mg total) by mouth daily 11/17/19 24 Active triamcinolone (KENALOG) 0.1 % creamIndications:W asp sting, accidental or unintentional, 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 Apply to affected area 1-2 times daily as needed for up to 2 weeks. Avoid face and groin. 30 g 11/23/19 24 025 Active ondansetron ODT (ZOFRAN-ODT) 4 mg disintegrating tabletIndications: Nausea Take 1 tablet (4 mg total) by mouth every 8 (eight) hours as needed for nausea or vomiting 20 tablet 1 11/23/19 24 Active hydroCHLOROthiazid e (HYDRODIURIL) 25 mg tabletIndications: Essential hypertension Take 1 tablet by mouth once daily 30 tablet 01/10/20 24 Active losartan (COZAAR) 100 mg tabletIndications: Essential hypertension Take 1 tablet by mouth once daily 30 tablet 01/10/20 24 Active ezetimibe (ZETIA) 10 mg tablet Take 1 tablet by mouth once daily 30 tablet 01/10/20 24 Active empagliflozin (Jardiance) 10 mg tabletIndications: Type 2 diabetes mellitus without complication, without long-term current use of insulin (CMS/HCC) (HCC) TAKE 1 TABLET BY MOUTH ONCE DAILY IN THE MORNING 30 tablet 01/10/20 24 Active Active Problems Problem Noted Date Diagnosed Date Type 2 diabetes mellitus wit h stage 3a chronic kidney disease, without long-term current use of insulin 11/17/2023 Assessment & Plan (11/17/2023 2:34 PM CDT): Chronic. Diabetes controlled. Mild CKD on labs. Encouraged healthy diet, exercise, weight loss. Continue Jardiance for renal benefits Hiatal hernia 07/02/2023 Assessment & Plan (07/02/2023 2:46 PM CDT): Encouraged to avoid dietary triggers. Patient declined option to take a proton pump inhibitor. Refer to GI for opinion Type 2 diabetes mellitus with hyperlipidemia 07/2023 Assessment & Plan (11/17/2023 2:26 PM CDT): Chronic. Diabetes is controlled. Continue Jardiance. Continue ezetimibe. Cholesterol needs improvement but patient is statin intolerant. Hopefully diet and lifestyle changes will help Assessment & Plan (07/02/2023 2:40 PM CDT): Chronic. Well-controlled. Continue Jardiance. Patient is not a candidate for GI P/ GLP 1 medications due to history of chronic pancreatitis as well as her chronic uncontrolled GI issues. We discussed these are relative contraindication for use of this class of medication. Patient expressed understanding. Assessment & Plan (05/03/2023 5:42 PM CODE INSPECTOR): Chronic. Well-controlled in office today. Previously intolerant of metformin. Patient is not a good candidate for a GLP 1 given has known chronic pancreatitis on imaging. We discussed that history of acute pancreatitis or chronic pancreatitis are relative contraindication for the GLP 1 medications. Stressed importance of trying to work on a diabetic diet. She needs to limit the simple carbohydrates. Stressed importance of regular physical activity both aerobic and resistance based training Statin intolerance 05/03/2023 Assessment & Plan (11/17/2023 1:50 PM CDT): Chronic. On zetia Assessment & Plan (07/02/2023 2:40 PM CDT): Patient's history significant statin intolerance. Continue ezetimibe Assessment & Plan (05/03/2023 8:44 AM CODE INSPECTOR): Patient complained of constipation as a side effect to multiple statins. Given this we are using ezetimibe for cholesterol KAYLA (obstructive sleep apnea) 05/03/2023 Assessment & Plan (11/17/2023 2:27 PM CDT): Chronic. On CPAP. Some compliance issues. sees pulmonology. Trying to get new machine Assessment & Plan (07/02/2023 2:41 PM CDT): Chronic. Intermittent compliance with CPAP. Continue care per pulmonology and sleep Medicine Assessment & Plan (05/03/2023 5:42 PM CODE INSPECTOR): Chronic. Patient has a component of severe sleep apnea with some signs of central sleep apnea on her last sleep study. Clinical Documentation Clerk was suggesting that she might actually need a BiPAP. Patient has sleep apnea remains uncontrolled Other chronic pancreatitis 03/26/2023 Overview (03/26/2023): Incidentally noted on CT C/A/P 09/2022. See pulmonology records Assessment & Plan (11/17/2023 1:51 PM CDT): Incidental on imaging. Relatively asymptomatic. GI feels most symptoms related to GERD and IBS and less likely pancreatitis Assessment & Plan (07/02/2023 2:46 PM CDT): Insulin noted previously on CT chest abdomen pelvis September 2022. Etiology unclear. Patient does have a degree of chronic abdominal pain issues as well as chronic nausea and vomiting. Patient was advised on healthy diet, exercise, weight loss. We did discuss option that this may be something that starting her on something like Creon in the future could be beneficial. We will plan to send her to Gastroenterology for more formal consult. Given chronic pancreatitis diagnosis she would not be a candidate for DM/weight loss medications like Jorge Rae Mounjaro Assessment & Plan (05/03/2023 8:42 AM CODE INSPECTOR): This was incidentally noted on prior CT scan in September. Given findings of chronic pancreatitis on imaging use of a GLP 1 is contraindicated Atherosclerosis of aorta 10/16/2022 Overview (10/16/2022): Incidental noted on chest x-ray dated 06/25/2022 from [place] [facility] Assessment & Plan (11/17/2023 1:51 PM CDT): Incidental on prior imaging. Continue zetia and ASA. Statin intolerant Assessment & Plan (07/09/2023 1:28 PM CDT): Incidental on prior imaging. No signs of progression. Continue risk factor modification as indicates pt at higher risk of CAD/CVA. Continue zetia given statin intolerance Assessment & Plan (05/03/2023 8:42 AM CODE INSPECTOR): Incidental on prior imaging. Tight cholesterol control is recommended. Patient has history of statin intolerance so is currently on ezetimibe Familial multiple lipoprotein-type hyperlipidemi a 09/22/2022 Overview (09/22/2022): Very high total cholesterol and LDL with moderate elevation in the triglycerides. Likely genetic tendency given numbers Intolerant to rosvastatin and other statins due to c/o constipation Resulted in the Past 12 Months 09/21/22 1227 CHOL 331* TRIG 191* HDL 59 LDLCALC 234* Assessment & Plan (07/02/2023 2:39 PM CDT): Chronic. Patient has been statin intolerant. Continue ezetimibe. Due for updated cholesterol level to assess control. Likely would benefit from PCSK9 inhibitor but patient is not really interested in these Assessment & Plan (05/03/2023 8:43 AM CODE INSPECTOR): Chronic. Statin intolerant. On ezetimibe. May need to start a PCSK9 inhibitor if can not achieve LDL closer to less than 70. Encouraged healthy diet and lifestyle Essential hypertension 09/21/2022 Assessment & Plan (11/17/2023 1:49 PM CDT): Chronic. HTN controlled. Cont prescription Rx as indicated in HPI under HTN diagnosis. Low sodium diet (DASH or Mediterranean), exercise, wt loss (if over weight) discussed Assessment & Plan (07/02/2023 2:37 PM CDT): Chronic. Controlled. Continue losartan and other prescription blood pressure medication Assessment & Plan (05/03/2023 5:38 PM CODE INSPECTOR): Chronic. Improved on recheck. Continue current prescription medication. Stressed importance of regular diet, exercise and weight loss Assessment & Plan (12/30/2022 1:17 PM CDT): Chronic. Controlled. Continue concurred prescription medication. Encouraged healthy diet, exercise, weight loss Assessment & Plan (09/21/2022 8:00 PM CDT): Blood pressure controlled in office with current prescription medications. We will continue. Encouraged healthy diet, exercise, weight loss Severe episode of recurrent major depressive disorder, without psychotic features 09/21/2022 Assessment & Plan (11/17/2023 1:50 PM CDT): See psychiatry at [facility]. Still some mood issues. Continue sertraline. Continue follow up with psychiatry Assessment & Plan (07/02/2023 2:38 PM CDT): Chronic. Needs improvement. Brief supportive counseling provided. Continue sertraline. Patient referred to Psychiatry per her request. Patient was able to contract for safety. Greater than 5 minutes spent on assessment and discussion patient's mental health today Assessment & Plan (05/03/2023 5:38 PM CODE INSPECTOR): Chronic. Uncontrolled. Needs improvement. Stressed importance of working on coping strategies. Patient has developed a component of associated psychophysiologic insomnia. Stressed importance of addressing mood to improve her sleep habits. Patient really should see psychiatry but never scheduled when previously referred. We will go ahead and increase her sertraline to 150 mg daily. She is misty for safety. We will monitor her symptoms Assessment & Plan (09/21/2022 8:01 PM CDT): Depression needs improvement. Referral to psychiatry provided as requested. Contract for safety. Supportive counseling provided in office Generalized anxiety disorder 09/21/2022 Assessment & Plan (11/17/2023 1:50 PM CDT): See psychiatry at [facility]. Still some mood issues. Continue sertraline. Continue follow up with psychiatry Assessment & Plan (07/02/2023 2:38 PM CDT): Chronic. Needs improvement. Continue sertraline as patient would like to see Psychiatry for more definitive evaluation and medication adjustment. Brief supportive counseling was provided Assessment & Plan (05/03/2023 5:38 PM CODE INSPECTOR): Chronic. Needs improvement. Increase sertraline Assessment & Plan (09/21/2022 8:00 PM CDT): Anxiety is uncontrolled and needs some improvement. We will refer to Psychiatry. Monitor symptoms for now. Given on TCA and SSRI we have to be cautious with adding or adjusting medication Acquired hypothyroidism 09/21/2022 Assessment & Plan (11/17/2023 2:25 PM CDT): Dose adjusted on labs a couple of months ago. Due for follow-up TSH. Order on file. Still feels fatigued Assessment & Plan (07/02/2023 2:39 PM CDT): Patient has some symptoms of fatigue. Will check her thyroid level and adjust her levothyroxine based on results. Currently I suspect she is mostly euthyroid based on last TSH Assessment & Plan (05/03/2023 5:39 PM CODE INSPECTOR): Biochemically euthyroid. Continue levothyroxine. Less likely that her thyroid is contributing to her difficulty losing weight. I suspect her weight issues are more likely related to lack of adequate dietary and exercise regimen. We will monitor her thyroid level Assessment & Plan (09/21/2022 7:59 PM CDT): Relatively euthyroid. Will check TSH and adjust levothyroxine as needed as reports medication was adjusted a few months ago and has not had follow-up testing since then Irritable bowel syndrome with diarrhea Assessment & Plan (11/17/2023 2:25 PM CDT): Chronic. Symptoms wax and wane. Follows with GI now. Keep follow up appointment with them later today Assessment & Plan (05/03/2023 8:43 AM CODE INSPECTOR): Chronic. Encouraged to modify dietary habits and avoid triggers as able. Assessment & Plan (09/21/2022 8:01 PM CDT): Avoid triggers. Okay for regular use of MiraLax and fiber supplements for constipation if needed Class 1 obesity due to exces s calories with serious comorbidity and body mass index (BMI) of 31.0 to 31.9 in adult 09/21/2022 Assessment & Plan (11/17/2023 2:25 PM CDT): Chronic. Suboptimally controlled but slightly better than last visit. Encouraged healthy diet, exercise, weight loss Assessment & Plan (07/02/2023 2:45 PM CDT): Chronic. Suboptimally controlled. Counseled on healthy diet, exercise and weight loss Assessment & Plan (05/03/2023 5:40 PM CODE INSPECTOR): Chronic. Suboptimally controlled. Patient is not a good candidate for a GLP 1 for diabetes given history of chronic pancreatitis on prior imaging. We have used the Jardiance for her diabetes as well as for some slight weight loss benefits. Patient is still struggling. Patient has very poor dietary habits. She also does not exercise regularly other than walking her dog. Stressed the importance of getting least 20-30 g of protein with most meals. I want her to drink at least 64 oz of fluid daily. Patient really does need to try to get some resistance exercises to help promote muscle mass and improve weight loss efforts. We discussed ways to do seated exercises given patient feels that she is restricted due to her chronic back and lower extremity issues. Patient really should see physical therapy to address those issues so referral was provided Assessment & Plan (09/21/2022 7:59 PM CDT): Encouraged healthy diet, exercise, weight loss. BMI is not at goal Psychophysiologic insomnia 09/21/2022 Assessment & Plan (11/17/2023 2:27 PM CDT): Chronic. Still struggles with insomnia. Psychiatry and Neurology or working on addressing. They have her amitriptyline 75 mg at nighttime to help. Has a lot of daytime fatigue Assessment & Plan (05/03/2023 5:41 PM CODE INSPECTOR): Chronic. Patient's mental health is poorly controlled in his likely a major contributing factor. Patient also has a component of uncontrolled sleep apnea which could be contributing. Patient is already on multiple medications for sleep from her neurologist for her headache disorder. I am not comfortable putting her on a prescription sedative hypnotic nightly. This is not an appropriate treatment for psychophysiologic insomnia. Treatment really is cognitive behavioral therapy. Sleep hygiene tips were provided and discussed Assessment & Plan (09/21/2022 8:03 PM CDT): Insomnia needs improvement. Work on contributing mental health issues. Discussed sleep hygiene and other sleep tips. Monitor. Given current medications would avoid use of trazodone and sedative hypnotics Migraine without aura and wi thout status migrainosus, not intractable 09/21/2022 Assessment & Plan (11/17/2023 2:26 PM CDT): Chronic. Has a new neurologist. They recently changed her medication. Remains on high-dose TCA and Topamax in addition to Qulipta. They are looking into Botox. Patient notes the Topamax gives her brain fog and memory issues. May benefit trying to wean the dose of this in the future if migraines are doing well with other treatment Assessment & Plan (07/02/2023 2:45 PM CDT): Chronic intermittent migraines. Has had increased migraine frequency and severity recently. She is working with Neurology. They have been adjusting her controller medications. Continue Qulipta and amitriptyline. She has Zomig and possible sumatriptan for flares. Assessment & Plan (05/03/2023 8:44 AM CODE INSPECTOR): Chronic. Following with Neurology.. Continue medication care per special Family history of bipolar disorder 09/21/2022 Gastroesophageal reflux disease without esophagi tis 09/21/2022 Assessment & Plan (11/17/2023 2:26 PM CDT): Chronic. Symptoms waxed and waned. Encouraged her to continue to try to avoid dietary triggers. Has appointment to see GI later today Assessment & Plan (07/02/2023 2:39 PM CDT): Chronic. Struggles. Patient declines PPI or alternative acid suppressors. Work on dietary modification. Given patient's uncontrolled GI issues she would not be a good candidate for a GLP 1 or G IP medication Assessment & Plan (05/03/2023 8:44 AM CODE INSPECTOR): Work on diet and avoid triggers. Monitor indigestion symptoms. Currently off heartburn med Assessment & Plan (09/21/2022 8:05 PM CDT): Work on diet and avoid triggers. Monitor indigestion symptoms Chronic cough 09/21/2022 Assessment & Plan (11/17/2023 2:27 PM CDT): Chronic. Breathing stable. Follows with pulmonology. May have a component of COPD versus just reactive airway disease/asthma. Continue Trelegy. Assessment & Plan (05/03/2023 5:42 PM CODE INSPECTOR): Chronic. Follows with pulmonology. She is under treatment for possible COPD though they have never given her a diagnosis. There is some suspicion that some of this may have been postviral. She will continue care per her pulmonology Assessment & Plan (09/21/2022 8:06 PM CDT): Continue care per pulmonology. Has appointment tomorrow. She is stable on inhalers. Unclear if this was truly related to COVID or something else defer to specialist Lumbar spondylosis 01/10/2018 Assessment & Plan (07/02/2023 2:37 PM CDT): Chronic. Still struggles with her pain. Has not started PT as previously referred. Encouraged her to start physical therapy. Monitor symptoms Assessment & Plan (05/03/2023 5:37 PM CODE INSPECTOR): Patient has a degree of chronic lumbar spondylosis. She has significant degenerative disc disease at L4-L5 and L5-S1. Discussed with patient the treatment for this is actually physical therapy and guided exercises. She needs to get regular physical activity and strengthening exercises help keep her back and core strong in efforts to control pain. She has not to avoid exercise due to this she just has to be cautious with what exercise she does. We will go ahead and refer to physical therapy given she is struggling Assessment & Plan (09/21/2022 8:02 PM CDT): Noted on prior MRI at [facility] a few years ago Spondylolisthesis, lumbar region 01/10/2018 Assessment & Plan (07/02/2023 2:37 PM CDT): Chronic. Encouraged to start physical therapy as previously ordered Assessment & Plan (05/03/2023 5:37 PM CODE INSPECTOR): History of chronic mild grade 1-2 anterior listhesis of L5 on S1 on prior imaging. Has been recommended management with guided exercise program. Refer back to physical therapy. Stressed importance of continuing regular strengthening exercises for her back, core and legs to help manage this. Previously was not felt to need surgical intervention by life insurance specialist over at [facility] Assessment & Plan (09/21/2022 8:02 PM CDT): Grade 2 anterior listhesis of the lumbar spine noted on prior lumbar MRI at [facility] Resolved Problems Problem Noted Date Diagnosed Date Resolved Date Prediabetes 10/09/2022 12/30/2022 Elevated hemoglobin A1c 09/24/2022 02/0 07/2023 Overview (09/24/2022): Fasting glucose was in the prediabetic range. Add on A1c came back 6.6 concerning for possible diabetes but has not had confirmatory testing. We will plan to monitor the A1c and see if improved at three-month blood pressure follow-up before giving official diagnosis of diabetes versus prediabetes Pure hypercholesterolemia 09/21/2022 Assessment & Plan (12/30/2022 1:17 PM CDT): Chronic. Suboptimally controlled on last labs. Continue Zetia Assessment & Plan (09/21/2022 8:01 PM CDT): Patient reports had constipation with statins in the past. Currently untreated. Check cholesterol level and consider a trial of Zetia Encounter for hepatitis C sc reening test for low risk patient 09/21/2022 09/21/2022 BURGESS (dyspnea on exertion) 09/21/2022 Assessment & Plan (09/21/2022 8:06 PM CDT): Continue care per pulmonology. Has appointment tomorrow. She is stable on inhalers. Unclear if this was truly related to COVID or something else defer to specialist Encounters Date Type Department Care Team Description 01/06/2024 Telephone [facility] Primary Care at [address] [id number] Ifrah Monroe MD from Last 3 Months Immunizations Name Administration Dates Next Due Influenza, Quadrivalent, Mara l Culture-based MDCK, Preservative Free, Antibiotic Free, Intramuscular 05/30/2019 Influenza, Trivalent, IM (MDV) 12/09/2016 Influenza, Trivalent, Preser vative Free, Intramuscular 01/31/2014 Influenza, Unspecified 03/29/2023(Deferr ed: Patient Refused),03/29/2022(Deferred: Patient Refused) Pfizer SARS-CoV-2 Monovalent Vaccination (12+ Yrs) PURPLE 05/31/2020,05/25/2020 Pneumococcal Conjugate Pcv20 11/17/2023 RSV Vaccine, Pref, Recombina nt, Subunit, Adjuvanted, PF, IM (Arexvy) 07/16/2023 Tdap 12/21/2016,12/09/2016 Surgical History Surgery Date Site/Laterality Comments CHOLECYSTECTOMY HERNIA REPAIR SHOULDER SURGERY Bilateral Medical History Medical History Date Comments Depression Hypertension Migraine without aura Back pain Esophageal hiatal hernia Sleep difficulties Hypothyroidism (acquired) FELY (generalized anxiety disorder) Major depression Hyperlipidemia Family History Medical History Relation Name Comments Bipolar disorder Brother Schizophrenia Brother Stroke Father Stroke Mother enlarged heart Mother Bipolar disorder Other Hypertension Other Relation Name Status Comments Brother Father Mother Other Social History Tobacco Use Types Packs/Day Years Used Date Smoking Tobacco: Former Cigarettes Smokeless Tobacco: Never Tobacco Cessation:Counseling Given: Not Answered AUDIT-C Answer Date Recorded Q1: How often do you have a drink containing alc ohol? Monthly or less 11/23/2023 Q2: How many drinks containi ng alcohol do you have on a typical day when you are drinking? 1 or 2 11/23/2023 Q3: How often do you have si x or more drinks on one occasion? 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 Gender Identity Not on file Sexual Orientation Not on file Obstetrics History Last Filed Vital Signs Vital Sign Reading Time Taken Comments Blood Pressure 134/72 11/23/2023 11:16 AM CDT Pulse 85 11/23/2023 11:16 AM CDT Temperature 36.4 ??C (97.6 ??F) 11/23/2023 1 1:16 AM CDT Respiratory Rate 16 11/23/2023 11:1 6 AM CDT Oxygen Saturation 97% 11/23/2023 11: 16 AM CDT Inhaled Oxygen Concentration - - Weight 94.3 kg (207 lb 14.4 oz) 024 11:16 AM CDT Height 172.7 cm (5' 8 ) 11/23/2023 11:1 6 AM CDT Body Mass Index 31.61 11/23/2023 11:16 AM CDT Plan of Treatment Health Maintenance Due Date Last Done Comments Breast Cancer Screening-Mammogram 1955 Osteoporosis Screening-Bone Density Scan 1955 Hepatitis B Screening 09/26/1975 Zoster Vaccine (1 of 2) 09/26/2007 Covid-19 Vaccine (2023-2 5 season) 2023 10/14/2021, 03/13/2021, 05/31/2020, Additional history exists Influenza Vaccine (#1) 2023 , 12/09/2016, 01/31/2014 Hemoglobin A1C 05/19/2024 11/17/2023, 02/0 07/2023, 12/30/2022, Additional history exists Albumin Creatinine Ratio, Urine 07/01/2024 Lipid Panel 07/01/2024 07/02/2023, 09/21/2022 eGFR 07/01/2024 07/02/2023, 09/21/2022 Foot Exam 11/16/2024 11/17/2023, 11/17/2023 Well Visit 65+ 11/16/2024 11/17/2023 Dilated Eye Exam 11/18/2024 11/19/2023 Depression Screening 11/22/2024 11/23/2023, 11/17/2023, 11/17/2023, Additional history exists Fall Risk Assessment 11/22/2024 11/23/2023, 11/17/19 24 DTaP/Tdap/Td Vaccine (3 - Td or Tdap) 12/21/2026 12/21/2016, 12/09/2016 Colon Cancer Screening-Colonoscopy 11/18/2033 11/19/2023 Hepatitis C Screening Completed 09/21/2022 Pneumococcal vaccine 65+ Completed 11/17/2023 Colon Cancer Screening-CT Colonography Discontinued 11/19/2023 Colon Cancer Screening-DNA Stool Discontinued 11/19/19 24 Colon Cancer Screening-FIT Discontinued 11/19/2023 Colon Cancer Screening-Sigmoidoscopy Discontinued 11/19/2023 Procedures Procedure Name Priority Date/Time Associated Diagnosis Comments HM DIABETES EYE EXAM Routine 11/19/2023 2:15 PM CDT HM COLONOSCOPY Routine 11/19/2023 1:57 PM CDT POCT HEMOGLOBIN A1C Routine 11/17/2023 1 :54 PM CDT Type 2 diabetes mellitus with stage 3a chronic kidney disease, without long-term current use of insulin (HCC) EGFR Routine 07/02/2023 12:05 PM CDT Type 2 diabetes mellitus with hyperlipidemia (HCC) LIPID PANEL Routine 07/02/2023 12:05 PM CDT Type 2 diabetes mellitus with hyperlipidemia (HCC) ALBUMIN CREATININE RATIO, URINE Routine 07/02/2023 12:05 PM CDT Type 2 diabetes mellitus with hyperlipidemia (HCC) HEPATITIS C ANTIBODY Routine 09/21/2022 12:27 PM CDT Encounter for hepatitis C screening test for low risk patient from Last 3 Months or Most Recently Relevant to Health Maintenance Results * DIABETES EYE EXAM (11/19/2023 2:15 PM CDT) Pathologist [facility] SCRIBED DIABETIC DILATED EYE EXAM Abnormal Historical Provider MD HEALTH MAINTENANCE Final Result * COLONOSCOPY (11/19/2023 1:57 PM CDT) Pathologist [facility] Scribed Colonoscopy Abnormal Historical Provider MD HEALTH MAINTENANCE Final Result * POCT hemoglobin A1c (11/17/2023 1:54 PM CDT) [facility] Hemoglobin A1C, POC 6.0 4.0 - 5.6 % Blood spot 11/17/2023 1:54 PM CDT Ifrah Monroe MD POINT OF CARE TEST ORD ERABLES Final Result * (ABNORMAL) eGFR (07/02/2023 12:05 PM CDT) [facility] eGFR 56(L) >=60 mL/min/1. 73 m2 Comment: Interpretive Data Reference Interval Normal ?>/= 90 mL/min/1.73m2 Mildly decreased* ? 60 - 89 mL/min/1.73m2 Mildly to moderately decreased ?45 - 59 mL/min/1.73m2 Moderately to severely decreased ??30 - 44 mL/min/1.73m2 Severely decreased ?15 - 29 mL/min/1.73m2 Kidney Failure ?< 15 ??mL/min/1.73m2 *Relative to young adult level Estimated glomerular filtration rate is determined by the 2020 CKD-EPI equation recommended by the National Kidney Foundation (A Unifying Approach to GFR Estimation: Recommendations of the NKF-ASK Task Force on Reassessing the Inclusion of Race in Diagnosing Kidney Disease, JASN 2020). The CKD-EPI equation should not be used for patients with unstable renal function and has not been validated in children and those over 70. Current interpretive data was last reviewed 2021. Blood 07/02/2023 12:0 5 PM CDT 07/02/2023 10:29 PM CDT Ifrah Monroe MD LAB BLOOD ORDERABLES F inal Result Performing Organization Address [facility] Co de Phone Number JOAQUIN [phone] Department [place] [address] * Albumin Creatinine Ratio, Urine (07/02/2023 12:05 PM CDT) Albumin Ur <12.0 mg/L Comment: Interpretive Data No reference range established. Current interpretive data was last revised 2018. Creatinine Ur 190.0 mg/dL JOAQUIN BRIAN Comment: Interpretive Data No reference range established. Current interpretive data was last revised 2018. Albumin Creatinine Ratio, Ur <6 1 - 29 mg/g JOAQUIN BRAIN Urine 07/02/2023 12:0 5 PM CDT 07/02/2023 9:31 PM CDT Ifrah Monroe MD LAB URINE ORDERABLES F inal Result Performing Organization Address [facility] Co de Phone Number JOAQUIN BRIAN [address] [facility] Department [place] [address] * (ABNORMAL) Lipid panel (07/02/2023 12:05 PM CDT) [facility] Cholesterol 226(H) 30 - 199 mg/dL Comment: Interpretive Data Ages < or = 19 years ??Acceptable: ? <170 mg/dL ??Borderline high: ??170-199 mg/dL ??High: ? >or= 200 mg/dL Ages > or = 20 years ??Desirable: ?<200 mg/dL ??Borderline high: ??200-239 mg/dL ??High: ? >or= 240 mg/dL Literature References: 1. Expert Panel on Integrated Guidelines for Cardiovascular Health and Risk Reduction in Children and Adolescents. Pediatrics 2011;128:S213 2. NCEP Expert Panel. Circulation 2004;110:227 Current Interpretive Data was last revised on 2017. Triglycerides 140 <=149 mg/dL JOAQUIN BRIAN Comment: Interpretive Data Ages < or = 9 years ??Acceptable: ? <75 mg/dL ??Borderline high: ??75-99 mg/dL ??High: ? >or= 100 mg/dL Ages 10 to 20 years ??Acceptable: ? <90 mg/dL ??Borderline high: ??90-129 mg/dL ??High: ? >or= 130 mg/dL Ages > or = 20 years ??Desirable: ?<150 mg/dL ??Borderline high: ??150-199 mg/dL ??High: ? 200-499 mg/dL ?Very high: ?? >or= 499 mg/dL Literature References: 1. Expert Panel on Integrated Guidelines for Cardiovascular Health and Risk Reduction in Children and Adolescents. Pediatrics 2011;128:S213 2. NCEP Expert Panel. Circulation 2004;110:227 Current Interpretive Data was last revised on 2017. HDL 53 >=40 mg/dL JOAQUIN Comment: Interpretive Data Ages < or = 19 years ??Acceptable: ? >45 mg/dL ??Borderline low: ?? 40-45 mg/dL ??Low: ? <40 mg/dL Ages > or = 20 years ??Desirable: ?>or= 60 mg/dL ??Low: ? <40 mg/dL Literature References: 1. Expert Panel on Integrated Guidelines for Cardiovascular Health and Risk Reduction in Children and Adolescents. Pediatrics 2011;128:S213 2. NCEP Expert Panel. Circulation 2004;110:227 Current Interpretive Data was last revised on 2017. LDL, calculated 145(H) <=129 mg/dL JOAQUIN Comment: Interpretive Data Ages < or = 19 years ??Acceptable: ? <110 mg/dL ??Borderline high: ??110-129 mg/dL ??High: ?>or= 130 mg/dL Ages > or = 20 years ??Optimal: ? <100 mg/dL ??Near optimal: ?100-129 mg/dL ??Borderline high: ?? 130-159 mg/dL ??High: ?>160 mg/dL Literature References: 1. Expert Panel on Integrated Guidelines for Cardiovascular Health and Risk Reduction in Children and Adolescents. Pediatrics 2011;128:S213 2. NCEP Expert Panel. Circulation 2004;110:227 Current Interpretive Data was last revised on 2017. Non-HDL Cholesterol 173 mg/dL JOAQUIN Comment: Interpretive Data Ages < or = 19 years ??Acceptable: ?<120 mg/dL ??Borderline high: ??120-144 mg/dL ??High: ?>145 mg/dL Ages > or = 20 years ??When triglycerides are >200 mg/dL, Non-HDL cholesterol is a secondary target of ? therapy with treatment goals that are 30 mg/dL greater than the LDL cholesterol target. ? Literature References: 1. Expert Panel on Integrated Guidelines for Cardiovascular Health and Risk Reduction in Children and Adolescents. Pediatrics 2011;128:S213 2. NCEP Expert Panel. Circulation 2004;110:227 Current Interpretive Data was last revised on 2017. Chol/HDL ratio 4 JOAQUIN Blood 07/02/2023 12:0 5 PM CDT 07/02/2023 9:30 PM CDT Ifrah Monroe MD LAB BLOOD ORDERABLES F inal Result JOAQUIN [address] Department [place] [address] * Hepatitis C antibody (09/21/2022 12:27 PM CDT) Hep C Ab Nonreactive Nonreactive JOAQUIN Comment: Interpretive Data Nonreactive: Antibodies to HCV not detected. Does NOT exclude the possibility of recent exposure to HCV. Equivocal: Equivocal for HCV antibodies. Supplemental molecular testing will be automatically performed to determine infection status in accordance with current CDC screening recommendations. ?? Reactive: Positive for HCV antibodies. ??This may represent current or past HCV infection. Supplemental molecular testing will be automatically performed to determine ??current infection status in accordance with current CDC screening recommendations. Interpretive data was last revised on 2019. Blood 09/21/2022 12:2 7 PM CDT 09/21/2022 6:43 PM CDT Ifrah Monroe MD LAB MICROBIOLOGY - GEN ERAL ORDERABLES Final Result Performing Organization Address [facility]/ZIP Co de Phone Number JOAQUIN BRIAN [phone] [address] Department of [employer] [place] [address] from Last 3 Months or Most Recently Relevant to Health Maintenance Insurance MEDICARE [facility] MEDICARE [facility] [address] [place] [address] MEDICARE [facility] [place] [address] MEDICARE [facility] Care Teams 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
--- OUTSIDE RECORDS SUMMARY | 2024-03-15 14:59 | XMS_ITS | Encounter Summary ---
Author Organization [facility] Healthcare Address [address] [place] [address] Care Team Providers Care Sprinkler Driver Name Role Phone Ifrah Monroe MD Primary Care Provider Unknown, Notinfile Unavailable Unavailable Nelson Hutchison MD Unavailable [phone] Marcelino Richards MD Unavailable [phone] Juni Levy MD Unavailable + Reason for Visit * Reason Onset Date Comments Medication Request 11/23/2023 Encounter Details Date Type Department Care Team (Late st Contact Info) Description 11/23/2023 Telephone [facility] Medical Group Primary Care at [address] [address] Ifrah Monroe MD [address] [place] [address] [address] [place] [address] Medication Request Social History Tobacco Use Types Packs/Day Years Used Date Smoking Tobacco: Former Cigarettes Smokeless Tobacco: Never AUDIT-C Answer Date Recorded Q1: How often [...] on file 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 Per pharmacist next prescriptionquantity please send prescription with gram amount not visual amount. * Telephone Encounter - Ifrah Monroe MD - 11/23/2023 12:58 PM CDT Please let the pharmacist know that patient is to use a fingertip (pee-sized) sized amount to any area that she has recent loss things that are itching. She has multiple things on her arms legs and neck * Telephone Encounter - He Faustin - 11/23/2023 12:11 PM CDT Medication Question/Clarification Medication Name(s): triamcinolone (KENALOG) 0.1 % cream What is the question or clarification needed? Jono from pharmacy calling to find out area on body this needs to be applied to. Is it one sting or multiple, in one part of the body or multiple. Needsto know how much she will need to apply each time so he can calculate the days supply. Needs for insurance. If needed, Pharmacy(s) medication(s) should be sent to: [facility] in [place] on file. Additional Comments: He is ok with call back with clarifying information. Does message need to be routed? Yes-Action Needed documented in this encounter Plan of Treatment Not on file documented as of this encounter Visit Diagnoses Not on filedocumented in this encounter Care Teams Sprinkler Driver Relationship Specialty Start Date End Date Ifrah Monroe MD PCP - General Family Practice 09/21/22 Unknown, Notinfile 01/02/22 Nelson Hutchison MD [address] [place] [address] Psychiatry 11/17/23 Marcelino Richards MD [address] [place] [address] Referring Physician Pulmonary Disease 11/17/23 Juni Levy MD [address] [place] [address] Referring Physician Gastroenterology 11/17/23 documented as of this encounter
--- OUTSIDE RECORDS SUMMARY | 2024-03-15 14:59 | XMS_ITS | Referral Summary ---
Author Organization [facility] Address [address] [place] [address] Phone Care Team Providers Care Slip Sheeter Name Role Phone Ifrah Monroe MD Primary Care Provider Unknown, Notinfile Unavailable Unavailable Nelson Hutchison MD Unavailable [phone] Marcelino Richards MD Unavailable [phone] Juni Levy MD Unavailable + Encounters Date Type Department Care Team Description 01/06/2024 Telephone [facility] Medical [facility] Primary Care at [address] [address] Ifrah Monroe MD from Last 3 Months Allergies Active Allergy Reactions Criticality Noted Date [...] by mouth daily Active cholecalciferol (VITAMIN D-3) 29735 unit tablet Take 1 tablet (10,000 Units [...] Take by mouth daily Active vit D3-vit W-sqmifhurv-royq [id number] udjs-gkf-jr-mg tablet Take 4 capsules by mouth daily [...] 1 tablet (175 mcg total) by mouth dye room helper before 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 Assessment & Plan (05/03/2023 5:42 PM DESIGN INTERN): Chronic. Well-controlled in office today. Previously intolerant [...] ezetimibe Assessment & Plan (05/03/2023 8:44 AM DESIGN INTERN): Patient complained of constipation as a side effect to multiple statins. Given this we are using ezetimibe for cholesterol KALYA (obstructive sleep apnea) 05/03/2023 Assessment & Plan (11/17/2023 2:27 PM CDT): Chronic. On CPAP. Some compliance issues. sees pulmonology. Trying to get new machine Assessment & Plan (07/02/2023 2:41 PM CDT): Chronic. Intermittent compliance with CPAP. Continue care per pulmonology and sleep Medicine Assessment & Plan (05/03/2023 5:42 PM DESIGN INTERN): Chronic. Patient has a component of severe sleep apnea with some signs of central sleep apnea on her last sleep study. Dust Box Tender was suggesting that she might actually need [...] Mounjaro Assessment & Plan (05/03/2023 8:42 AM DESIGN INTERN): This was incidentally noted on prior CT scan in September. Given findings of chronic pancreatitis on imaging use of a GLP 1 is contraindicated Atherosclerosis of aorta 10/16/2022 Overview (10/16/2022): Incidental noted on chest x-ray dated 06/25/2022 from [facility] Assessment & Plan (11/17/2023 1:51 PM CDT): Incidental on prior imaging. Continue zetia and ASA. Statin intolerant Assessment & Plan (07/09/2023 1:28 PM CDT): Incidental on prior imaging. No signs of progression. Continue risk factor modification as indicates pt at higher risk of CAD/CVA. Continue zetia given statin intolerance Assessment & Plan (05/03/2023 8:42 AM DESIGN INTERN): Incidental on prior imaging. Tight cholesterol control [...] these Assessment & Plan (05/03/2023 8:43 AM DESIGN INTERN): Chronic. Statin intolerant. On ezetimibe. May need [...] medication Assessment & Plan (05/03/2023 5:38 PM DESIGN INTERN): Chronic. Improved on recheck. Continue current prescription [...] (11/17/2023 1:50 PM CDT): See psychiatry at [facility]. Still some mood issues. Continue sertraline. Continue follow up with psychiatry Assessment & Plan (07/02/2023 2:38 PM CDT): Chronic. Needs improvement. Brief supportive counseling provided. Continue sertraline. Patient referred to Psychiatry per her request. Patient was able to contract for safety. Greater than 5 minutes spent on assessment and discussion patient's mental health today Assessment & Plan (05/03/2023 5:38 PM DESIGN INTERN): Chronic. Uncontrolled. Needs improvement. Stressed importance of [...] (11/17/2023 1:50 PM CDT): See psychiatry at [facility]. Still some mood issues. Continue sertraline. Continue follow up with psychiatry Assessment & Plan (07/02/2023 2:38 PM CDT): Chronic. Needs improvement. Continue sertraline as patient would like to see Psychiatry for more definitive evaluation and medication adjustment. Brief supportive counseling was provided Assessment & Plan (05/03/2023 5:38 PM DESIGN INTERN): Chronic. Needs improvement. Increase sertraline Assessment & [...] TSH Assessment & Plan (05/03/2023 5:39 PM DESIGN INTERN): Biochemically euthyroid. Continue levothyroxine. Less likely that [...] today Assessment & Plan (05/03/2023 8:43 AM DESIGN INTERN): Chronic. Encouraged to modify dietary habits and [...] loss Assessment & Plan (05/03/2023 5:40 PM DESIGN INTERN): Chronic. Suboptimally controlled. Patient is not a [...] fatigue Assessment & Plan (05/03/2023 5:41 PM DESIGN INTERN): Chronic. Patient's mental health is poorly controlled [...] flares. Assessment & Plan (05/03/2023 8:44 AM DESIGN INTERN): Chronic. Following with Neurology.. Continue medication care [...] medication Assessment & Plan (05/03/2023 8:44 AM DESIGN INTERN): Work on diet and avoid triggers. Monitor [...] Trelegy. Assessment & Plan (05/03/2023 5:42 PM DESIGN INTERN): Chronic. Follows with pulmonology. She is under [...] symptoms Assessment & Plan (05/03/2023 5:37 PM DESIGN INTERN): Patient has a degree of chronic lumbar [...] PM CDT): Noted on prior MRI at [facility] a few years ago Spondylolisthesis, lumbar region 01/10/2018 Assessment & Plan (07/02/2023 2:37 PM CDT): Chronic. Encouraged to start physical therapy as previously ordered Assessment & Plan (05/03/2023 5:37 PM DESIGN INTERN): History of chronic mild grade 1-2 anterior listhesis of L5 on S1 on prior imaging. Has been recommended management with guided exercise program. Refer back to physical therapy. Stressed importance of continuing regular strengthening exercises for her back, core and legs to help manage this. Previously was not felt to need surgical intervention by entry specialist over at [facility] Assessment & Plan (09/21/2022 8:02 PM CDT): Grade 2 anterior listhesis of the lumbar spine noted on prior lumbar MRI at [facility] Resolved Problems Problem Noted Date Diagnosed [...] COVID or something else defer to specialist Immunizations Name Administration Dates Next Due Influenza, Quadrivalent, Mara l Culture-based MDCK, Preservative Free, Antibiotic Free, Intramuscular 05/30/2019 Influenza, Trivalent, IM (MDV) 12/09/2016 Influenza, Trivalent, Preser vative Free, Intramuscular 01/31/2014 Influenza, Unspecified 03/29/2023(Deferr ed: Patient Refused),03/29/2022(Deferred: Patient Refused) Pfizer SARS-CoV-2 Monovalent Vaccination (12+ Yrs) PURPLE 05/31/2020,05/25/2020 Pneumococcal Conjugate Pcv20 11/17/2023 RSV Vaccine, Pref, Recombina nt, Subunit, Adjuvanted, PF, IM (Arexvy) 07/16/2023 Tdap 12/21/2016,12/09/2016 Social History Tobacco Use Types Packs/Day Years [...] on file 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 Gender Identity Not on file Sexual Orientation [...] 11/23/2023 11:16 AM CDT Plan of Treatment Not on file Procedures Procedure Name Priority Date/Time Associated Diagnosis Comments DIABETES EYE EXAM Routine 11/19/2023 2:15 PM [...] DIABETES EYE EXAM (11/19/2023 2:15 PM CDT) SCRIBED DIABETIC DILATED EYE EXAM Abnormal Historical Provider HEALTH MAINTENANCE Final Result * COLONOSCOPY (11/19/2023 1:57 PM CDT) Scribed Colonoscopy Abnormal Historical Provider HEALTH MAINTENANCE Final Result * POCT hemoglobin A1c (11/17/2023 1:54 PM CDT) Pathologist [facility] Hemoglobin A1C, POC 6.0 4.0 - 5.6 % Blood spot 11/17/2023 1:54 PM CDT Ifrah Monroe MD POINT OF CARE TEST ORD ERABLES Final Result * (ABNORMAL) eGFR (07/02/2023 12:05 PM CDT) eGFR 56(L) >=60 mL/min/1. 73 m2 Comment: [...] ORDERABLES F inal Result Performing Organization Address [facility] de Phone Number JOAQUIN SNEHAL [address] [place] [address] * Albumin Creatinine Ratio, Urine (07/02/2023 12:05 PM CDT) Albumin Ur <12.0 mg/L Comment: Interpretive Data No reference range established. Current interpretive data was last revised 2018. Creatinine Ur 190.0 mg/dL JOAQUIN Comment: Interpretive Data No reference range established. Current interpretive data was last revised 2018. Albumin Creatinine Ratio, Ur <6 1 - 29 mg/g JOAQUIN Urine 07/02/2023 12:0 5 PM CDT 07/02/2023 9:31 PM CDT Ifrah Monroe MD LAB URINE ORDERABLES F inal Result Performing Organization Address [facility] de Phone Number JOAQUIN [address] [address] Department [employer] [place] [address] * (ABNORMAL) Lipid panel (07/02/2023 12:05 PM CDT) Cholesterol 226(H) 30 - 199 mg/dL Comment: [...] on 2017. HDL 53 >=40 mg/dL JOAQUIN BRIAN Comment: Interpretive Data Ages [...] 2017. LDL, calculated 145(H) <=129 mg/dL JOAQUIN BRIAN Comment: Interpretive Data Ages [...] on 2017. Non-HDL Cholesterol 173 mg/dL JOAQUIN BRIAN Comment: Interpretive Data Ages [...] ORDERABLES F inal Result Performing Organization Address [facility] Co de Phone Number JOAQUIN BRIAN [address] [address] Department [place] [address] * Hepatitis C antibody (09/21/2022 12:27 PM [...] ERAL ORDERABLES Final Result Performing Organization Address [facility] Co de Phone Number JOAQUIN BRIAN [address] [address] Department [employer] [place] [address] from Last 3 Months or Most Recently Relevant to [place] [address] MEDICARE [facility] MEDICARE [facility] [place] [address] MEDIC[place] [address] MEDICARE [facility] Care Teams Slip Sheeter Relationship Specialty Start Date End Date Ifrah Monroe MD PCP - General Family Practice 09/21/22 Unknown, Notinfile 01/02/22 Nelson Hutchison MD [address] [facility] [address] [place] [address] Psychiatry 11/17/23 Marcelino Richards MD [address] [facility] [address] [place] [address] Referring Physician Pulmonary Disease 11/17/23 Juni Levy MD [address] [facility] [address] [place] [address] Referring Physician Gastroenterology 11/17/23
--- OUTSIDE RECORDS SUMMARY | 2024-03-15 14:59 | XMS_ITS | Encounter Summary ---
Author Organization [facility] Healthcare Address [address] [place] [address] Care Team Providers Care Implant Coordinator Name Role Phone Ifrah Monroe MD Primary Care Provider Unknown, Notinfile Unavailable Unavailable Nelson Hutchison MD Unavailable [phone] Marcelino Richards MD Unavailable [phone] Juni Levy MD Unavailable + Encounter Details Date Type Department Care Team (Late st Contact Info) Description 01/06/2024 Telephone [facility] Primary Care at [address] [address] Ifrah Monroe MD [address] [place] [address] [address] [place] [address] Social History Tobacco Use Types Packs/Day Years [...] on file 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 Monroe no longer being with [facility] [place] and she was given the numberfor Help with choosing a new PCP. [phone] opt 1 documented in this encounter Plan of Treatment Not on file documented as of this encounter Visit Diagnoses Not on filedocumented in this encounter Care Teams Implant Coordinator Relationship Specialty Start Date End Date Ifrah Monroe MD PCP - General Family Practice 09/21/22 Unknown, Notinfile 01/02/22 Nelson Hutchison MD [address] [place], [place] [id number] Psychiatry 11/17/23 Marcelino Richards MD [address] [place] [address] Referring Physician Pulmonary Disease 11/17/23 Juni Levy MD [address] [place] [address] Referring Physician Gastroenterology 11/17/23 documented as of this encounter
--- OUTSIDE RECORDS SUMMARY | 2024-03-15 14:59 | XMS_ITS | Encounter Summary ---
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 Apprentice Name Role Phone Ifrah Monroe MD Primary Care Provider Unknown, Notinfile Unavailable Unavailable Nelson Hutchison MD Unavailable [phone] Marcelino Richards MD Unavailable [phone] Juni Levy MD Unavailable + Reason for Visit * Reason Onset Date Comments Insect Bite 11/22/2023 Encounter Details Date Type Department Care Team (Late st Contact Info) Description 11/22/2023 Nurse Triage [facility] Medical [facility] Primary Care at [address] [address] Ifrah Monroe MD [address] [place] [address] [address] [place] [address] Social History Tobacco Use Types [...] on file 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 - 11/22/2023 2:21 PM CDT Patient reports she was stung by several wasps at approx 1830 last night. Has multiple red areas from the wasp stings, reports pain to arms and legs. Patient also reports itching to head but does notbelieve she was stung in the head. Patient also has a migraine that is persistent despite taking migraine meds, some nausea and dizziness since the stings occurred. Denies SOB, swollen tongue, or difficulty swallowing. Offered CC today but patient prefers to be seen in office. Scheduled with Dr. Monroe 11/22 at 1115. Nursing care advice also provided. Encouraged to call back if there are further questions or concerns. Encouraged to call back if symptoms persist or worsen. Reason for Disposition Hives, itching, or swelling elsewhere on body (i.e., not at a site of sting) and started > 2 hours after sting Protocols used: Bee or Yellow Jacket [id number] * Telephone Encounter - Venecia June Papo. - 11/22/2023 2:06 PM CDT Regarding: dizzy, migraine, nausea, stung by many wasps ----- Message from Deanna Christianson sent at 11/22/2023 2:01 PM CDT ----- Symptom Based Call Chief Complaint(s): dizzy, migraine, nausea, stung by many wasps Duration: yesterday, 6:30pm What type of symptom(s) is the patient experiencing? Red Flag. Is the patient concerned they are experiencing a medical emergency requiring an ambulance? No Additional Comments: none Does message need to be routed? Yes-Action Needed documented in this encounter Plan of Treatment Not on file documented as of this encounter Visit Diagnoses Not on filedocumented in this encounter Care Teams Maintenance Painter Apprentice Relationship Specialty Start Date End Date Ifrah Monroe MD PCP - General Family Practice 09/21/22 Unknown, Notinfile 01/02/22 Nelson Hutchison MD [address] [place], [place] [id number] Psychiatry 11/17/23 Marcelino Richards MD [address] [place], [place] [id number] Referring Physician Pulmonary Disease 11/17/23 Juni Levy MD [address] [place] [address] Referring Physician Gastroenterology 11/17/23 documented as of this encounter
--- OUTSIDE RECORDS SUMMARY | 2024-03-15 14:59 | XMS_ITS | Encounter Summary ---
Author Organization [facility] Healthcare Address [address] [place] [address] Care Team Providers Care Care Center Manager Name Role Phone Ifrah Calvo MD Primary Care Provider Unknown, Notinfile Unavailable Unavailable Nelson Hutchison MD Unavailable [phone] Marcelino Richards MD Unavailable [phone] Juni Levy MD Unavailable + Reason for Visit * Reason Comments Insect Bite Patient is here comp laining of being stung by wasps having headaches,nausea and vomiting bile . 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 Best if only using before bed if needed The second generation antihistamines (Zyrtec,cetirizine, Claritin, loratidine, fexofenadine, Allega) tend to be much less sedating. These are better to use for daytime symptoms and are ok to use twice a day short term for allergic reactions and wasp stings. Ok to use topical triamcinolone cream to itchy stings for up to 2 weeks Try cold compresses as well documented in this encounter Ordered Prescriptions Prescription Sig Dispense Quantity Refills Last Filled Start Date End Date ondansetron ODT (ZOFRAN-ODT) 4 mg disintegrating tabletIndications:Na usea Take 1 tablet (4 mg total) by mouth every 8 (eight) hours as needed for nausea or vomiting 20 tablet 1 11/23/2023 triamcinolone (KENALOG) 0.1 % creamIndications:Was p sting, accidental or unintentional, 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 Apply to affected area 1-2 times daily as needed for up to 2 weeks. Avoid face and groin. 30 g 11/23/2023 5 documented in this encounter Progress Notes * Ifrah Calvo MD - 11/23/2023 11:15 AM CDT Subjective Chief Complaint Patient presents with Insect Bite Patient is here complaining of being stung by wasps having headaches,nausea and vomiting bile . Angelica Cowan is a 68 y.o. female here for acute visit Notes was swarmed by wasps and got stung several times on legs and face. Feels fatigued and nauseated Denies fevers, chills Some dizziness No shortness of breath or difficulty breathing Stings occurred Wednesday evening. Tx tried - cold shower, over the counter benadryl Current Outpatient Medications on File Prior to Visit Medication Sig Dispense Refill albuterol HFA (PROVENTIL HFA,VENTOLIN HFA,PROAIR HFA) 90 mcg/actuation inhaler Inhale 2 puffs 2 (two) times a day amitriptyline (ELAVIL) 50 mg tablet Take 1.5 tablets (75 mg total) by mouth nightly aspirin 81 mg enteric coated tablet Take 1 tablet (81 mg total) by mouth daily benzonatate (TESSALON) 200 mg capsule Take 1 capsule (200 mg total) by mouth 3 (three) times a day biotin 10 mg tablet Take 1 tablet (10 mg total) by mouth daily brimonidine (ALPHAGAN) 0.15 % ophthalmic solution 1 drop 2 (two) times a day calcium carbonate-vitamin D3 (CALTRATE 600 + D) 1500 mg (600 mg elemental) -400 units per tablet Take 1 tablet by mouth daily cetirizine 10 mg capsule Take by mouth daily cholecalciferol (VITAMIN D-3) 93576 unit tablet Take 1 tablet (10,000 Units total) by mouth 4 (four) times a day chromium picolinate 1,000 mcg tablet Take by mouth cyanocobalamin (Vitamin B-12) 2,500 mcg tablet, sublingual ezetimibe (ZETIA) 10 mg tablet Take 1 tablet (10 mg total) by mouth daily 90 tablet 4 folic acid (FOLVITE) 800 mcg tablet Take 1 tablet (800 mcg total) by mouth daily hydroCHLOROthiazide (HYDRODIURIL) 25 mg tablet Take 1 tablet by mouth once daily 90 tablet 0 Jardiance 10 mg tablet TAKE 1 TABLET BY MOUTH ONCE DAILY IN THE MORNING 90 tablet 0 levothyroxine (SYNTHROID) 175 mcg tablet Take 1 tablet (175 mcg total) by mouth sand mixer before 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 90 tablet 1 losartan (COZAAR) 100 mg tablet Take 1 tablet by mouth once daily 90 tablet 0 lutein-zeaxanthin 25-5 mg capsule Take by mouth Gummy lysine 1,000 mg tablet Take 1 tablet by mouth daily magnesium oxide 400 mg magnesium tablet Take 400 mg by mouth daily montelukast (SINGULAIR) 10 mg tablet Take 1 tablet (10 mg total) by mouth daily omeprazole (PriLOSEC) 40 mg capsule Take 1 capsule (40 mg total) by mouth daily phytonadione, vit K1, (phytonadione, vitamin K1,) 100 mcg tablet Take 1 tablet (100 mcg total) by mouth 2 (two) times a day Qulipta 60 mg tablet Take 1 tablet by mouth daily sertraline (ZOLOFT) 100 mg tablet Take 1.5 tablets (150 mg total) by mouth daily (Patient taking differently: Take 2 tablets (200 mg total) by mouth daily) 135 tablet 1 SUMAtriptan (IMITREX) 100 mg tablet Take 1 tablet (100 mg total) by mouth once as needed topiramate (TOPAMAX) 100 mg tablet Take 2 tablets (200 mg total) by mouth 2 (two) times a day Brodie Ellipta 200-62.5-25 mcg inhaler Inhale 1 puff daily TURMERIC ORAL Take 1,600 mg by mouth daily UNABLE TO FIND Take 1 each by mouth daily Med Name: [facility] vit D3-vit [id number] [id number] paoo-dtz-mg-mg tablet Take 4 capsules by mouth daily vitamin E 400 unit capsule Take 1 capsule (400 Units total) by mouth daily zinc gluconate 50 mg tablet Take 1 tablet (50 mg total) by mouth daily ZOLMitriptan (ZOMIG) 5 mg tablet Take 1 tablet (5 mg total) by mouth once as needed for migraine No current facility-administered medications on file prior to visit. Social History Tobacco Use Smoking status: Former Types: Cigarettes Smokeless tobacco: Never Substance and Sexual Activity Drug use: Not Currently Types: Marijuana Sexual activity: None Alcohol Use: Not At Risk (11/23/2023) AUDIT-C Frequency of Alcohol Consumption: Monthly or less Average Number of Drinks: 1 or 2 Frequency of Binge Drinking: Less than monthly Allergies Allergen Reactions Crestor [Rosuvastatin] Other (See comments) Constipation. Refuses to try alternative statins Objective Vitals: 11/23/23 1116 BP: 134/72 BP Location: Left arm Patient Position: Sitting Pulse: 85 Resp: 16 Temp: 36.4 ??C (97.6 ??F) TempSrc: Oral SpO2: 97% Weight: 94.3 kg (207 lb 14.4 oz) Height: 172.7 cm (5' 8 ) Body mass index is 31.61 kg/m??. Appears: alert, well appearing, and in no distress Ears: normal TM's and external ear canals both ears Face - no facial swelling or erythema. She does have a couple of little red spots on her neck whereshe notes she was stung. No signs of angioedema Neck: supple, no significant adenopathy Lungs: clear to auscultation, no wheezes, rales, or rhonchi, no tachypnea, retractions, or cyanosis CV exam: Regular rate and rhythm and normal S1 and S2 Abdominal exam: soft, nontender, nondistended, no masses or organomegaly. Skin - she has a few erythematous spots that are slightly elevated on her lower legs from where shereports being stung. I do not appreciate any diffuse hives or severe edema ASSESSMENT & PLAN: Diagnoses and all orders for this visit: Wasp sting, accidental or unintentional, 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 (T63.461A) (Primary) - triamcinolone (KENALOG) 0.1 % cream; Apply to affected area 1-2 times daily as needed for up to 2weeks. Avoid face and groin. Nausea (R11.0) - ondansetron ODT (ZOFRAN-ODT) 4 mg disintegrating tablet; Take 1 tablet (4 mg total) by mouth every 8 (eight) hours as needed for nausea or vomiting Diarrhea, unspecified type (R19.7) Fatigue, unspecified type (R53.83) Acute nonintractable headache, unspecified headache type (R51.9) Patient with mild headache nausea and abdominal symptoms with diarrhea that started after multiple bee stings about 36 hours ago. She has no signs of respiratory distress or angioedema. More likely she is having symptoms due to the low-grade systemic reaction to the numerous things in addition to local reaction. Discussed use of antihistamines. We advised that 1st generation antihistamines much more sedating so she may be better off using second- generation antihistamines during the day and see me the Benadryl for night. The fact that she is 36 hours in his not having any worsening abdominal symptoms, shortness for breath, difficulty breathing or any signs of vital sign instability makes this much less likely that this is a true degree of anaphylactoid reaction. Okay to hold off on use of oral steroids. Monitor closely. If symptoms significantly worsen or any other red flags occur she will let us know. We will give her topical triamcinolone cream which she can apply a fingertip size amount to the sting sites a couple times a day as needed for itching and discomfort. If any new or concerning symptoms occur she will let me know. Will Rx some Zofran to help with the nausea Advised to call back directly if there are further questions, or if these symptoms fail to improve as anticipated or worsen in the next 1 week An After Visit Summary was printed and given to the patient. Follow up as needed or as previously recommended. Ifrah Calvo MD documented in this encounter Plan of Treatment Not on file documented as of this encounter Visit Diagnoses Diagnosis Wasp sting, accidental or unintentional, 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- Primary Nausea Nausea alone Diarrhea, unspecified type Fatigue, unspecified type Acute nonintractable headache, unspecified headache type documented in this encounter Historical Medications * This list may reflect changes made after this encounter. omeprazole (PriLOSEC) 40 mg capsule Take 1 capsule (40 mg total) by mouth daily 11/17/2023 added in this encounter Care Teams Care Center Manager Relationship Specialty Start Date End Date Ifrah Calvo MD PCP - General Family Practice 09/21/22 Unknown, Notinfile 01/02/22 Nelson Hutchison MD [address] [place] [address] Psychiatry 11/17/23 Marcelino Richards MD [address] [place] [address] Referring Physician Pulmonary Disease 11/17/23 Juni Levy MD [address] [place] [address] Referring Physician Gastroenterology 11/17/23 documented as of this encounter
--- OUTSIDE RECORDS SUMMARY | 2024-03-15 15:00 | XMS_ITS | Encounter Summary ---
Author Organization [facility] Healthcare Address [address] [place] [address] Care Team Providers Care Sailing Officer Name Role Phone Ifrah Calvo MD Primary Care Provider Unknown, Notinfile Unavailable Unavailable Nelson Hutchison MD Unavailable [phone] Marcelino Richards MD Unavailable Juni Levy MD Unavailable + Reason for Referral * Diagnostic Imaging (Routine) - Closed Specialty Diagnoses / Procedures Referred By Celestina andrews Referred To Contact Diagnoses Screening mammogram for breast cancer Procedures SCREENING MAMMOGRAM BILATERAL W MAURIZIO Ifrah Calvo MD Phone: tel: fax: External Order Referral ID Status Reason Start Date Expiration Date Visits Re quested Visits Authorized [id number] Closed 11/17/2023 12/16/2024 1 1 * Diagnostic Imaging (Routine) - Closed Specialty Diagnoses / Procedures Referred By Celestina t Referred To Contact Diagnoses Postmenopausal Procedures Dexa Axial Skeleton Bone Density 1 or 2 Site Ifrah Calvo MD Phone: tel: fax: External Order Referral ID Status Reason Start Date Expiration Date Visits Re quested Visits Authorized [id number] Closed 11/17/2023 12/16/2024 1 1 * Consultation (Routine) - Closed Specialty Diagnoses / Procedures Referred By Contac t Referred To Contact Urology Diagnoses Stress incontinence, female Ifrah Calvo MD Phone: tel: fax: Urology [facility] [address] [place] [address] [place] [id number] Phone: tel: fax: Referral ID Status Reason Start Date Expiration Date V isits Requested Visits Authorized [id number] Closed Specialty Services Required 11/17/2023 12/16/2024 6 6 Question Answer Please select the performing region: External Order [171] To loc/pos Urology [facility] [[id number]] # of visits: 6 Comments [facility] [place] [place] Danny Gould MD; Remy Lester MD, Fern Dietrich MD, and Juwan Hanson MD [address] [place], [place] [address] Reason for Visit * Reason Comments Medicare Wellness Patient is here for her medicare wellness exam. Patient has a follow up appt to day with hammer runner [facility]. Encounter Details Date Type Department Care Team (Latest Contact Info) Description 11/17/2023 1:30 PM CDT Office Visit [facility] Medical Group Primary Care at [address] [address] Ifrah Calvo MD [address] [place] [address] [address] [place] [address] Annual physical exam (Primary Dx); Type 2 diabetes mellitus with stage 3a chronic kidney disease, without long-term current use of insulin (HCC); Essential hypertension; Acquired hypothyroidism; Other chronic pancreatitis ([facility]); Type 2 diabetes mellitus with hyperlipidemia ([facility]); Generalized anxiety disorder; Severe episode of recurrent major depressive disorder, without psychotic features ([facility]); KAYLA (obstructive sleep apnea); Statin intolerance; Irritable bowel syndrome with diarrhea; Atherosclerosis of aorta ([facility]); Migraine without aura and without status migrainosus, not intractable; Gastroesophageal reflux disease without esophagitis; Class 1 obesity due to excess calories with serious comorbidity and body mass index (BMI) of 31.0 to 31.9 in adult; Decreased hearing of both ears; Stress incontinence, female; Postmenopausal; Screening mammogram for breast cancer; Need for vaccination; Psychophysiologic insomnia; Chronic cough Social History Tobacco Use Types Packs/Day Years Used Date Smoking Tobacco: Former Cigarettes Smokeless Tobacco: Never Tobacco Cessation:Counseling Given: Not Answered AUDIT-C Answer Date Recorded Q1: How often do you have a drink containing alc ohol? Monthly or less 11/17/2023 Q2: How many drinks containi ng alcohol do you have on a typical day when you are drinking? 1 or 2 11/17/2023 Q3: How often do you have si x or more drinks on one occasion? 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 Gender Identity Not on file Sexual Orientation Not on file documented as of this encounter Last Filed Vital Signs Vital Sign Reading Time Taken Comments Blood Pressure 120/82 11/17/2023 1:35 PM CDT Pulse 78 11/17/2023 1:35 PM CDT Temperature 36.7 ??C (98 ??F) 11/17/2023 1:35 PM CDT Respiratory Rate 16 11/17/2023 1:35 PM CDT Oxygen Saturation 98% 11/17/2023 1:35 PM CDT Inhaled Oxygen Concentration - - Weight 95.3 kg (210 lb) 11/17/2023 1:35 PM CDT Height 172.7 cm (5' 8 ) 11/17/2023 1:35 PM CDT Body Mass Index 31.93 11/17/2023 1:35 PM CDT documented in this encounter Patient Instructions * Patient Instructions* Ifrah Calvo MD - 11/17/2023 1:30 PM CDT Recommendations For A Healthy Lifestyle Referral to urology for bladder issues Keep working with your specialist. Continue current medications Routine Screening: Pap smear every 3 years age 21-65 depending on your history Mammogram every 1 years over age 40 Bone density screening at age 65 Diabetes and Cholesterol screening every 3-5 years (starting at age 35, or optional at younger age)if normal, yearly if abnormal or risk factors. Colonoscopy at 45 per new guidelines, and then typically every 5-10 years depending on risk factors. Cologuard is next best alternative if you are low risk for colon cancer and should be repeated every 3 yrs. Yearly eye exam Yearly dental exam. Dentists prefer this to be every 6 months Yearly physical exam with your primary care doctor Immunizations: Yearly Influenza Tetanus, Diphtheria, and Pertussis (Tdap) or Td booster every 10 years Adults under age 60 should consider 3 dose hepatitis-B vaccination series if not previously completed Prevnar 20 (strep pneumonia vaccine) after age 65 or at any age if you smoke, have diabetes, or anylung or heart problems. If you do PPSV23, then you may consider getting Prevnar 20 one year later. If you have already completed the PPSV23 (pneumovax) and the PCV 13 (prevnar 13) then you do not need the Prevnar 20 Shingles (Shingrix) vaccine after age 50 - It is a series of 2 shots given 2 to 6 months apart. Cuts risk of shingles by about 90%. Please check with insurance company to check for coverage and if they prefer you get it at our office or at a local pharmacy. Medicare based insurance prefer at the pharmacy. RSV vaccination should be considered in adults 70 and older, especially in those with weakened immune systems or increased risk factors for more significant respiratory illness Please get vaccination against COVID-19, if not already done. A seasonal COVID booster we will likely be recommended every fall/winter for the next few years Other Suggestions: Try to get 30 minutes of aerobic exercise daily. Goal is 150 minutes of moderate physical activity a week Maintain a healthy Body Mass Index of 18.5-25. If overweight, please try to work on gradual weight loss through diet and exercise Please make sure to wear your seat belt regularly Please make sure to wear sunscreen whenever outside for any prolonged length of time Aim for 1000 - 1200 mg of calcium daily: There are 300 mg of calcium in each serving of yogurt, cheese, milk, and cooked greens 400 mcg of Folic Acid if you are of childbearing age. This can help decrease risk of certain types of defects if you were to get Try not to exceed one alcoholic beverage per day Avoid smoking. If you are currently smoking, please stop If you do not hear for my office within 2 weeks of doing lab work, please check [facility] (if active)or reach out to our office for results as we have likely been trying to get a holding you either through [facility], by phone, or by mail.. Please call office during routine office hours if any questions or concerns. Schedule a Follow up Appointment with me in: 6 months Health Maintenance Topic Date Due Breast Cancer Screening-Mammogram Never done Osteoporosis Screening-Bone Density Scan Never done Colon Cancer Screening-Colonoscopy Never done Dilated Eye Exam Never done Pneumococcal vaccine 65+ (1 of 2 - PCV) Never done Hepatitis B Screening Never done Zoster Vaccine (1 of 2) Never done Covid-19 Vaccine ( - 2022- season) 2022 Influenza Vaccine (1) 11/28/2023 Hemoglobin A1C 05/19/2024 Albumin Creatinine Ratio, Urine 07/01/2024 Lipid Panel 07/01/2024 eGFR 07/01/2024 Fall Risk Assessment 11/16/2024 Depression Screening 11/16/2024 Well Visit 65+ 11/16/2024 Foot Exam 11/16/2024 DTaP/Tdap/Td Vaccine (3 - Td or Tdap) 12/21/2026 Hepatitis C Screening Completed [facility] Diabetes Follow a diabetic diet with healthy meals that are low salt, low fat, high fiber. For more information on a diabetic diet, please go to the [place] [employer] website at www.diabetes.org and select the Healthy Living Home blood sugar monitoring and goals 80-130 fasting Less than 180 two hours after a meal Home blood pressure goal less than 140/90, better if <130/80 Check feet daily for sores, dryness, cracking; use daily moisturizer if needed and invest in good shoes Annual Foot Exam See eye doctor at least once per year and have report sent to our office Aim for 30 minutes of exercise every day (45-60 minutes if trying to lose weight) The [place] [employer] recommends all adults get a minimum of 150 minutes of moderate physical activity a week. This can be completed as 30 minutes of brisk walking on most days of the week. Even 10 minutes of exercise a day can provide benefit and will add up over the week. If able, try to take the stairs instead of the elevator or park father away in the parking lot. Start slowand try to increase your amount of activity over several weeks. Exercise will help to improve your cholesterol readings and blood pressure and to be overall healthier. Maintain a healthy weight. Body mass index is 31.93 kg/m??. If your BMI (a ratio of your weight to your height) is over 25, it is recommended that you try to exercise and eat healthier in an effort to lose a few pounds Continue current medications: Yes Please call office during routine office hours if any questions or concerns. See me in 6 months documented in this encounter Progress Notes * Ifrah Calvo MD - 11/17/2023 1:30 PM CDT Images from the original note were not included. Angelica Cowan is a 68 y.o. year old White Non- female here an for Annual Wellness Visit. HTN, HLD, with atherosclerosis Aorta - on hydrochlorothiazide 25 mg daily, losartan 100 mg, ezetimibe 10 mg daily, ASA 81. Statin intolerant Cardiac ROS: denies chest pain, irregular heartbeat, heart racing Neuro ROS: denies near syncope, dizziness, lightheadedness. Denies new TIA/CVA symptoms Denies diffuse muscle aches or muscle cramps Diabetes: Was intolerant of metformin. Currently on Jardiance. Given history of chronic pancreatitis noted incidentally on imaging by her prescription benefit specialist (CT 09/2022), so use of GLP1 is relatively contraindicated. Patient previously reported poor dietary compliance due to lack of will power . She notes she has significant sweet tooth and is unable to make appropriate dietary choices due to this. Following DM diet: trying better Does pt exercise: not much Last eye - Sees [employer] [facility] Kidney disease: Mild CKD stage IIIA on labs with last 2 GFR is 57 and 56 Neuropathy: denies On VENTURA- I or ARB: yes On Statin: no. Hx of intolerance. On zetia Diabetic ROS: no chest pain, dyspnea or TIA's, no medication side effects noted, no worsening lowerextremity edema, no new foot ulcers. Hypothyroidism - on levothyroxine 175 mcg daily. Due for repeat Chronic migraines, without aura with hx of occipital neuralgia - sees neurology, Dr. Parker. On Quilipta, topiramate 200 mg twice daily, amitriptyline 50 mg and as needed Zomig and Imitrex. GERD and IBS with diarrhea - mostly diarrhea. No blood in stool. Saw Edi [facility] in August. Has appointment today chronic anxiety and depression - Hx of personal traumas when younger Struggles with chronic depression and anxiety. Previously referred to psychiatry. + family hx of BAD in children. One of her children attempted suicide in past. Brother with schizophrenia and BAD. On sertraline 200 mg. PHQ Screening Over the past 2 weeks, how often have you been bothered by any of the following problems? Little Interest or Pleasure in Doing Things: More than half the days Feeling Down, Depressed, or Hopeless: Several days PHQ-2 Total Score (If total score is 3 or more points, staff should administer the PHQ-9): 3 Trouble Falling or Staying Asleep, or Sleeping too Much: Nearly every day Feeling Tired or Having Little Energy: Nearly every day Poor Appetite or Overeating: Not at all Feeling Bad About Yourself - or That You are a Failure or Have Let Yourself or Your Family Down: Several days Trouble Concentrating on Things, Such as Reading the Newspaper or Watching Television: Not at all Moving or Speaking so Slowly That Other People Could Have Noticed, or the Opposite - Being so Fidgety or Restless That You Have Been Moving Around a lot More Than Usual: Not at all Thoughts That You Would be Better off , or of Hurting Yourself in Some Way: Not at all PHQ-9 Total Score: 10 If you checked off any problems, how difficult have these problems made it for you to do your work,take care of things at home, or get along with other people?: Somewhat difficult PHQ Screening Over the past 2 weeks, how often have you been bothered by any of the following problems? Little Interest or Pleasure in Doing Things: More than half the days Feeling Down, Depressed, or Hopeless: Several days PHQ-2 Total Score (If total score is 3 or more points, staff should administer the PHQ-9): 3 Trouble Falling or Staying Asleep, or Sleeping too Much: Nearly every day Feeling Tired or Having Little Energy: Nearly every day Poor Appetite or Overeating: Not at all Feeling Bad About Yourself - or That You are a Failure or Have Let Yourself or Your Family Down: Several days Trouble Concentrating on Things, Such as Reading the Newspaper or Watching Television: Not at all Moving or Speaking so Slowly That Other People Could Have Noticed, or the Opposite - Being so Fidgety or Restless That You Have Been Moving Around a lot More Than Usual: Not at all Thoughts That You Would be Better off , or of Hurting Yourself in Some Way: Not at all PHQ-9 Total Score: 10 If you checked off any problems, how difficult have these problems made it for you to do your work,take care of things at home, or get along with other people?: Somewhat difficult FELY-7 Feeling nervous, anxious, or on edge: Several days Not being able to stop or control worrying: Several days Worrying too much about different things: Several days Trouble relaxing: Several days Being so restless that it's hard to sit still: Not at all sure Becoming easily annoyed or irritable: Several days Feeling afraid as if something awful might happen: Not at all sure Total Score: 5 If you checked off any problems, how difficult have these made it for you to do your work, take care of things at home, or get along with other people?: Somewhat difficult Chronic cough with reactive airway disease and likely COPD - Blending Machine Feeder is Dr. Quinteros at [facility]. On trelegy ellipita and mucinex twice daily, albuterol as needed, tessalon three times daily, and montelukast. Uses benadryl at night. Reports pulm wanted her on oxygen KAYLA with brief nocturnal hypoxemia - sees pulm. Has CPAP but reports issues with compliance due to her cough and drainage. They have not added supplemental oxygen per the notes. Scanned records were reviewed from July of 2023. Medicare Health Risk Assessment Basic Information In general, would you say your health is: Good Do you have an advance directive, such as a living will or durable power of disability attorney?: (!) No Would you like information regarding Advanced Directive (Living Will) and/or Durable Power of Tread Builder?: (!) Yes Do you have to strain or struggle to hear/understand conversations?: (!) Yes Over the last 2 weeks, how often have you been bothered by any of the following problems? Little Interest or Pleasure in Doing Things: More than half the days Feeling Down, Depressed, or Hopeless: Several days PHQ-2 Total Score (If total score is 3 or more points, staff should administer the PHQ-9): 3 In the past year, patient experienced: One or more falls in the last year: (!) Yes (4 times at the [facility]) How many times?: 2 or more Was the patient injured in the fall?: No (scraped knee but no other injury) Do you feel unsteady when standing or walking?: Yes Do you worry about falling?: Yes Safety Do you have a working smoke detector in your home?: Yes Does your home have throw rugs, poor lighting, or a slippery bath tub/shower?: No Do you always fasten your seatbelt when you are in a vehicle?: Yes What is your typical mode of transportation: Car Physical Activity How many days a week do you usually exercise?: 0 - I do not exercise (rare recently) How intense is your typical exercise?: Light (like stretching or slow walking) Nutrition How would you rate your appetite?: Good How would you describe the condition of your mouth and teeth/dentures?: Fair On a typical day, how many servings of fruits and vegetables do you eat?: 1 On a typical day, how many servings of high fiber/whole-grain foods do you eat?: 1 On a typical day, how many servings of high fat/fried foods do you eat?: 0 Have you experienced any of the following problems currently or recently? Eating: (!) Yes Grooming: (!) Yes Bathing: No Walking: No Using the toilet: No Memory problems: (!) Yes Difficulty speaking: No Dressing: No Balance: (!) Yes Pain: No Sexual Health: No Fatigue: (!) Yes Depression: (!) Yes Life Satisfaction: (!) Yes Stress: (!) Yes Anger: No Loneliness or Social Isolation: No Suicide: No Have you experienced any of the following problems currently or recently? Laundry and/or housekeeping: (!) Yes Handling money: No Shopping: No Using the Phone: No Food preparation: No Transportation: No Taking and/or getting your own medications: No Do you use prescription drugs that are not prescribed for you?: No Based on my observation of the patient, review of Health Risk Assessment (HRA) and other records, this is my assessment and recommendation regarding fall risk, hearing impairment, home safety, ADLs, or any other issues identified in the HRA: Discussed advanced directives Has hearing issues. Plans to see audiology Reports falls due to uneven surface. Pt declines PT for gait/balance issues/fall prevention. Discussed diet improvement Issues with eating - reports trying to make smarter diet changes. Still needs to make smarter choices. Denies issues eating but more issues with dietary choices Grooming - Reports has trouble putting pants on when standing but can do when standing or leaning on something. Otherwise denies issues Some memory issues due to topamax. Causes some fatigue and brain fog. Has new neurology near [facility] Seeing psych for mood. Now on sertraline 200 mg daily. Neuro increase amitriptyline to 75 mg daily Life satisfaction and stress more related to her mood issues. Has friends and social engagement. Laundry issues is more apathy and lack of desire to do her laundry but see is able to do Incontinence Assessment Do you ever have urine leak out involuntarily?: Yes How often?: Sometimes (stress leakage) Uses adult incontinence pads. Wants to discusses surgery for incontinence. Wants referral to urology Problem List, Past Medical and Surgical History: Patient Active Problem List Diagnosis Lumbar spondylosis Spondylolisthesis, lumbar region Essential hypertension Severe episode of recurrent major depressive disorder, without psychotic features (HCC) Generalized anxiety disorder Acquired hypothyroidism Irritable bowel syndrome with diarrhea Class 1 obesity due to excess calories with serious comorbidity and body mass index (BMI) of 31.0 to 31.9 in adult Psychophysiologic insomnia Migraine without aura and without status migrainosus, not intractable Family history of bipolar disorder Gastroesophageal reflux disease without esophagitis Chronic cough Familial multiple lipoprotein-type hyperlipidemia Atherosclerosis of aorta (HCC) Other chronic pancreatitis (HCC) Type 2 diabetes mellitus with hyperlipidemia (HCC) Statin intolerance KAYLA (obstructive sleep apnea) Hiatal hernia Type 2 diabetes mellitus with stage 3a chronic kidney disease, without long-term current use of insulin (HCC) Past Medical History: Diagnosis Date Back pain Depression Esophageal hiatal hernia FELY (generalized anxiety disorder) Hyperlipidemia Hypertension Hypothyroidism (acquired) Major depression Migraine without aura Sleep difficulties Past Surgical History: Procedure Laterality Date CHOLECYSTECTOMY HERNIA REPAIR SHOULDER SURGERY Bilateral Family History: Family History Problem Relation Age of Onset Stroke Mother Other (enlarged heart) Mother Stroke Father Bipolar disorder Brother Schizophrenia Brother Bipolar disorder Other Hypertension Other Social History: Social History Tobacco Use Smoking status: Former Types: Cigarettes Smokeless tobacco: Never Substance and Sexual Activity Drug use: Not Currently Types: Marijuana Sexual activity: None Alcohol Use: Not At Risk (11/17/2023) AUDIT-C Frequency of Alcohol Consumption: Monthly or less Average Number of Drinks: 1 or 2 Frequency of Binge Drinking: Less than monthly Allergies: Allergies Allergen Reactions Crestor [Rosuvastatin] Other (See comments) Constipation. Refuses to try alternative statins Medications: Current Outpatient Medications: albuterol HFA (PROVENTIL HFA,VENTOLIN HFA,PROAIR HFA) 90 mcg/actuation inhaler, Inhale 2 puffs 2 (two) times a day, Disp: , Rfl: amitriptyline (ELAVIL) 50 mg tablet, Take 1.5 tablets (75 mg total) by mouth nightly, Disp: , Rfl: aspirin 81 mg enteric coated tablet, Take 1 tablet (81 mg total) by mouth daily, Disp: , Rfl: benzonatate (TESSALON) 200 mg capsule, Take 1 capsule (200 mg total) by mouth 3 (three) times a day, Disp: , Rfl: biotin 10 mg tablet, Take 1 tablet (10 mg total) by mouth daily, Disp: , Rfl: brimonidine (ALPHAGAN) 0.15 % ophthalmic solution, 1 drop 2 (two) times a day, Disp: , Rfl: calcium carbonate-vitamin D3 (CALTRATE 600 + D) 1500 mg (600 mg elemental) -400 units per tablet, Take 1 tablet by mouth daily, Disp: , Rfl: cetirizine 10 mg capsule, Take by mouth daily, Disp: , Rfl: cholecalciferol (VITAMIN D-3) 34013 unit tablet, Take 1 tablet (10,000 Units total) by mouth 4 (four) times a day, Disp: , Rfl: chromium picolinate 1,000 mcg tablet, Take by mouth, Disp: , Rfl: cyanocobalamin (Vitamin B-12) 2,500 mcg tablet, sublingual, , Disp: , Rfl: ezetimibe (ZETIA) 10 mg tablet, Take 1 tablet (10 mg total) by mouth daily, Disp: 90 tablet, Rfl: 4 folic acid (FOLVITE) 800 mcg tablet, Take 1 tablet (800 mcg total) by mouth daily, Disp: , Rfl: hydroCHLOROthiazide (HYDRODIURIL) 25 mg tablet, Take 1 tablet by mouth once daily, Disp: 90 tablet,Rfl: 0 Jardiance 10 mg tablet, TAKE 1 TABLET BY MOUTH ONCE DAILY IN THE MORNING, Disp: 90 tablet, Rfl: 0 levothyroxine (SYNTHROID) 175 mcg tablet, Take 1 tablet (175 mcg total) by mouth 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, Disp: 90 tablet, Rfl: 1 losartan (COZAAR) 100 mg tablet, Take 1 tablet by mouth once daily, Disp: 90 tablet, Rfl: 0 lutein-zeaxanthin 25-5 mg capsule, Take by mouth Gummy, Disp: , Rfl: lysine 1,000 mg tablet, Take 1 tablet by mouth daily, Disp: , Rfl: magnesium oxide 400 mg magnesium tablet, Take 400 mg by mouth daily, Disp: , Rfl: montelukast (SINGULAIR) 10 mg tablet, Take 1 tablet (10 mg total) by mouth daily, Disp: , Rfl: phytonadione, vit K1, (phytonadione, vitamin K1,) 100 mcg tablet, Take 1 tablet (100 mcg total) by mouth 2 (two) times a day, Disp: , Rfl: Qulipta 60 mg tablet, Take 1 tablet by mouth daily, Disp: , Rfl: sertraline (ZOLOFT) 100 mg tablet, Take 1.5 tablets (150 mg total) by mouth daily (Patient taking differently: Take 2 tablets (200 mg total) by mouth daily), Disp: 135 tablet, Rfl: 1 SUMAtriptan (IMITREX) 100 mg tablet, Take 1 tablet (100 mg total) by mouth once as needed, Disp: , Rfl: topiramate (TOPAMAX) 100 mg tablet, Take 2 tablets (200 mg total) by mouth 2 (two) times a day, Disp: , Rfl: Trelegy Ellipta 200-62.5-25 mcg inhaler, Inhale 1 puff daily, Disp: , Rfl: TURMERIC ORAL, Take 1,600 mg by mouth daily, Disp: , Rfl: UNABLE TO FIND, Take 1 each by mouth daily Med Name: Cellerix, Disp: , Rfl: vit D3-vit V-phwbxmesq-thfn [phone] wagn-zks-qx-mg tablet, Take 4 capsules by mouth daily, Disp: , Rfl: vitamin E 400 unit capsule, Take 1 capsule (400 Units total) by mouth daily, Disp: , Rfl: zinc gluconate 50 mg tablet, Take 1 tablet (50 mg total) by mouth daily, Disp: , Rfl: ZOLMitriptan (ZOMIG) 5 mg tablet, Take 1 tablet (5 mg total) by mouth once as needed for migraine, Disp: , Rfl: Depression Screen: PHQ Screening PHQ-2 Total Score (If total score is 3 or more points, staff should administer the PHQ-9): 3 PHQ-9 Total Score: 10 Vitals: Vitals BP 120/82 (BP Location: Left arm, Patient Position: Sitting) Pulse 78 Temp 36.7 ??C (98 ??F) (Oral) Resp 16 Ht 172.7 cm (5' 8 ) Wt 95.3 kg (210 lb) SpO2 98% BMI 31.93 kg/m?? Body mass index is 31.93 kg/m??. Exam: Physical Exam Vitals and nursing note reviewed. Constitutional: General: She is not in acute distress. Appearance: Normal appearance. She is obese. HENT: Head: Normocephalic and atraumatic. Right Ear: Tympanic membrane, ear canal and external ear normal. There is no impacted cerumen. Left Ear: Tympanic membrane, ear canal and external ear normal. There is no impacted cerumen. Eyes: General: No scleral icterus. Right eye: No discharge. Left eye: No discharge. Pupils: Pupils are equal, round, and reactive to light. Cardiovascular: Rate and Rhythm: Normal rate and regular rhythm. Pulses: Normal pulses. Heart sounds: Normal heart sounds. No murmur heard. No friction rub. No gallop. Pulmonary: Effort: Pulmonary effort is normal. No respiratory distress. Breath sounds: Normal breath sounds. No stridor. No wheezing, rhonchi or rales. Chest: Chest wall: No tenderness. Abdominal: General: Abdomen is flat. Bowel sounds are normal. Palpations: Abdomen is soft. Tenderness: There is no abdominal tenderness. Musculoskeletal: General: No swelling. Right lower leg: No edema. Left lower leg: No edema. Lymphadenopathy: Cervical: No cervical adenopathy. Skin: General: Skin is warm and dry. Neurological: General: No focal deficit present. Mental Status: She is alert and oriented to person, place, and time. Psychiatric: Mood and Affect: Mood normal. Behavior: Behavior normal. Thought Content: Thought content normal. Judgment: Judgment normal. Bilateral barefoot diabetic foot exam was performed Diabetic foot exam: Left monofilament exam: normal Right monofilament exam: normal Mild onychomycosis right great toe 2+ DP and PT pulses bilaterally Care Team Providers: Patient Care Team: Ifrah Calvo MD as PCP - General (Family Practice) Unknown, Nelson Dudley MD (Psychiatry) Marcelino Richards MD as Referring Physician (Pulmonary Disease) Juni Levy MD as Referring Physician (Gastroenterology) Primary Pharmacy/DME suppliers: [facility] - [place], [place] - [address] [address] [facility] [id number] I reviewed the patient???s home and community safety, including driving, and made the following recommendations discussed increasing engagment and physical activity. Detection of Cognitive Impairment: The patient has mild have cognitive impairment based on direct observation, discussion with patientor family, or review of medical records. Health Maintenance: Health Maintenance Topics with due status: Overdue Topic Date Due Breast Cancer Screening-Mammogram Never done Osteoporosis Screening-Bone Density Scan Never done Colon Cancer Screening-Colonoscopy Never done Dilated Eye Exam Never done Hepatitis B Screening Never done Zoster Vaccine Never done Covid-19 Vaccine 11/27/2022 Health Maintenance Topics with due status: Not Due Topic Last Completion Date DTaP/Tdap/Td Vaccine 12/21/2016 Influenza Vaccine 05/30/2019 Albumin Creatinine Ratio, Urine 07/02/2023 Lipid Panel 07/02/2023 eGFR 07/02/2023 Fall Risk Assessment 11/17/2023 Depression Screening 11/17/2023 Well Visit 65+ 11/17/2023 Foot Exam 11/17/2023 Hemoglobin A1C 11/17/2023 Health Maintenance Topics with due status: Completed Topic Last Completion Date Hepatitis C Screening 09/21/2022 Pneumococcal vaccine 65+ 11/17/2023 Counseling and Referral of Preventative Services: Lifestyle Recommendations Increase Physical Activity, Increase Social Engagement, Reduce Weight, and Improve Diet Advanced Directive Durable Power of Tread Builder: Discussed Today: Living Will: Discussed Today: Assessment and Plan: Diagnoses and all orders for this visit: Annual physical exam (Primary) Type 2 diabetes mellitus with stage 3a chronic kidney disease, without long-term current use of insulin (HCC) Assessment & Plan: Chronic. Diabetes controlled. Mild CKD on labs. Encouraged healthy diet, exercise, weight loss. Continue Jardiance for renal benefits Orders: - POCT hemoglobin A1c Essential hypertension Assessment & Plan: Chronic. HTN controlled. Cont prescription Rx as indicated in HPI under HTN diagnosis. Low sodium diet (DASH or Mediterranean), exercise, wt loss (if over weight) discussed Acquired hypothyroidism Assessment & Plan: Dose adjusted on labs a couple of months ago. Due for follow-up TSH. Order on file. Still feels fatigued Other chronic pancreatitis (HCC) Assessment & Plan: Incidental on imaging. Relatively asymptomatic. GI feels most symptoms related to GERD and IBS and less likely pancreatitis Type 2 diabetes mellitus with hyperlipidemia (HCC) Assessment & Plan: Chronic. Diabetes is controlled. Continue Jardiance. Continue ezetimibe. Cholesterol needs improvement but patient is statin intolerant. Hopefully diet and lifestyle changes will help Generalized anxiety disorder Assessment & Plan: See psychiatry at [facility]. Still some mood issues. Continue sertraline. Continue follow up with psychiatry Severe episode of recurrent major depressive disorder, without psychotic features (HCC) Assessment & Plan: See psychiatry at [facility]. Still some mood issues. Continue sertraline. Continue follow up with psychiatry KAYLA (obstructive sleep apnea) Assessment & Plan: Chronic. On CPAP. Some compliance issues. sees pulmonology. Trying to get new machine Statin intolerance Assessment & Plan: Chronic. On zetia Irritable bowel syndrome with diarrhea Assessment & Plan: Chronic. Symptoms wax and wane. Follows with GI now. Keep follow up appointment with them later today Atherosclerosis of aorta (HCC) Assessment & Plan: Incidental on prior imaging. Continue zetia and ASA. Statin intolerant Migraine without aura and without status migrainosus, not intractable Assessment & Plan: Chronic. Has a new neurologist. They recently changed her medication. Remains on high-dose TCA and Topamax in addition to Qulipta. They are looking into Botox. Patient notes the Topamax gives her brain fog and memory issues. May benefit trying to wean the dose of this in the future if migraines aredoing well with other treatment Gastroesophageal reflux disease without esophagitis Assessment & Plan: Chronic. Symptoms waxed and waned. Encouraged her to continue to try to avoid dietary triggers. Hasappointment to see GI later today Class 1 obesity due to excess calories with serious comorbidity and body mass index (BMI) of 31.0 to 31.9 in adult Assessment & Plan: Chronic. Suboptimally controlled but slightly better than last visit. Encouraged healthy diet, exercise, weight loss Decreased hearing of both ears Comments: has appt to see audiology Stress incontinence, female - Ambulatory referral to Urology; Future Postmenopausal - Dexa Axial Skeleton Bone Density 1 or 2 Site; Future Screening mammogram for breast cancer - SCREENING MAMMOGRAM BILATERAL W MAURIZIO; Future Need for vaccination - Pneumococcal conjugate vaccine 20-valent IM (Prevnar-20) Psychophysiologic insomnia Assessment & Plan: Chronic. Still struggles with insomnia. Psychiatry and Neurology or working on addressing. They have her amitriptyline 75 mg at nighttime to help. Has a lot of daytime fatigue Chronic cough Assessment & Plan: Chronic. Breathing stable. Follows with pulmonology. May have a component of COPD versus just reactive airway disease/asthma. Continue Trelegy. We will refer to Urology for consultation given patient is wanting to seek surgical intervention for the stress incontinence. Health Maintenance: Discussed health maintenance issues including regular seat belt use, dental care, sunscreen use, good nutritional habits, and regular aerobic exercise. Preventative care counseling/screening: Smoking cessation: na Colon cancer screening (adults 45-75, or younger if risks factors): up to date per pt. Last 1 yr ago per pt Pap smear (age 21-65 female): na Mammogram (women 40+): needs. ordered Osteoporosis screening (women > 65): due. ordered Lung Cancer screening (50-80 with 20 pack year Hx): na Hep C screening (one time for adults born after 1940): done Healthy Living Tips Low fat, low cholesterol diet rich in lean proteins, whole grains, fruits and vegetables. Limit fast foods and processed foods ACSM activity recs: 150 minutes/week. 30 minutes most days of the week. Vaccinations updated: Tetanus (Tdap Q 10 yr): up to date Shingrix (over age 50): encouraged Influenza (yearly): encouraged seasonally Pneumococcal vaccine (65+, or if risk factors): given COVID vaccines: encouraged seasonally Patient here for annual Medicare wellness visit and for review of complete medical problem list. All the elements of the plan were completed as outlined by CMS. A copy of the prevention plan was given to the patient. I reviewed Medicare Wellness Questionnaire (other physicians involved in care, depression screen, advanced directives), cognitive/memory, and functional assessment. I reviewed and updated the complete problem list, medication list, family history, and immunization records with the patient. I provided preventive counseling and early detection interventions to the patient through health maintenance update and summary of today's office visit. Follow up 6 months for chronic issues Ifrah Calvo MD documented in this encounter Miscellaneous Notes * Assessment & Plan Note - Ifrah Calvo MD - 11/17/2023 2:28 PM CDT Associated Problem(s): Type 2 diabetes mellitus with stage 3a chronic kidney disease, without long-term current use of insulin (HCC) Chronic. Diabetes controlled. Mild CKD on labs. Encouraged healthy diet, exercise, weight loss. Continue Jardiance for renal benefits * Assessment & Plan Note - Ifrah Calvo MD - 11/17/2023 2:27 PM CDT Associated Problem(s): Chronic cough Chronic. Breathing stable. Follows with pulmonology. May have a component of COPD versus just reactive airway disease/asthma. Continue Trelegy. * Assessment & Plan Note - Ifrah Calvo MD - 11/17/2023 2:27 PM CDT Associated Problem(s): Psychophysiologic insomnia Chronic. Still struggles with insomnia. Psychiatry and Neurology or working on addressing. They have her amitriptyline 75 mg at nighttime to help. Has a lot of daytime fatigue * Assessment & Plan Note - Ifrah Calvo MD - 11/17/2023 2:26 PM CDT Associated Problem(s): Type 2 diabetes mellitus with hyperlipidemia (HCC) Chronic. Diabetes is controlled. Continue Jardiance. Continue ezetimibe. Cholesterol needs improvement but patient is statin intolerant. Hopefully diet and lifestyle changes will help * Assessment & Plan Note - Ifrah Calvo MD - 11/17/2023 2:26 PM CDT Associated Problem(s): Gastroesophageal reflux disease without esophagitis Chronic. Symptoms waxed and waned. Encouraged her to continue to try to avoid dietary triggers. Hasappointment to see GI later today * Assessment & Plan Note - Ifrah Calvo MD - 11/17/2023 2:26 PM CDT Associated Problem(s): Migraine without aura and without status migrainosus, not intractable Chronic. Has a new neurologist. They recently changed her medication. Remains on high-dose TCA and Topamax in addition to Qulipta. They are looking into Botox. Patient notes the Topamax gives her brain fog and memory issues. May benefit trying to wean the dose of this in the future if migraines aredoing well with other treatment * Assessment & Plan Note - Ifrah Calvo MD - 11/17/2023 2:25 PM CDT Associated Problem(s): Class 1 obesity due to excess calories with serious comorbidity and body mass index (BMI) of 31.0 to 31.9 in adult Chronic. Suboptimally controlled but slightly better than last visit. Encouraged healthy diet, exercise, weight loss * Assessment & Plan Note - Ifrah Calvo MD - 11/17/2023 2:25 PM CDT Associated Problem(s): Irritable bowel syndrome with diarrhea Chronic. Symptoms wax and wane. Follows with GI now. Keep follow up appointment with them later today * Assessment & Plan Note - Ifrah Calvo MD - 11/17/2023 2:25 PM CDT Associated Problem(s): Acquired hypothyroidism Dose adjusted on labs a couple of months ago. Due for follow-up TSH. Order on file. Still feels fatigued * Assessment & Plan Note - Ifrah Calvo MD - 11/17/2023 1:51 PM CDT Associated Problem(s): Atherosclerosis of aorta (HCC) Incidental on prior imaging. Continue zetia and ASA. Statin intolerant * Assessment & Plan Note - Ifrah Calvo MD - 11/17/2023 1:51 PM CDT Associated Problem(s): Other chronic pancreatitis (HCC) Incidental on imaging. Relatively asymptomatic. GI feels most symptoms related to GERD and IBS and less likely pancreatitis * Assessment & Plan Note - Ifrah Calvo MD - 11/17/2023 1:50 PM CDT Associated Problem(s): Statin intolerance Chronic. On zetia * Assessment & Plan Note - Ifrah Calvo MD - 11/17/2023 1:50 PM CDT Associated Problem(s): KAYLA (obstructive sleep apnea) Chronic. On CPAP. Some compliance issues. sees pulmonology. Trying to get new machine * Assessment & Plan Note - Ifrah Calvo MD - 11/17/2023 1:50 PM CDT Associated Problem(s): Generalized anxiety disorder See psychiatry at [facility]. Still some mood issues. Continue sertraline. Continue follow up with psychiatry * Assessment & Plan Note - Ifrah Calvo MD - 11/17/2023 1:50 PM CDT Associated Problem(s): Severe episode of recurrent major depressive disorder, without psychotic features (HCC) See psychiatry at [facility]. Still some mood issues. Continue sertraline. Continue follow up with psychiatry * Assessment & Plan Note - Ifrah Calvo MD - 11/17/2023 1:49 PM CDT Associated Problem(s): Essential hypertension Chronic. HTN controlled. Cont prescription Rx as indicated in HPI under HTN diagnosis. Low sodium diet (DASH or Mediterranean), exercise, wt loss (if over weight) discussed documented in this encounter Plan of Treatment Scheduled Orders Name Type Priority Associated Diagnoses Orde r Schedule Dexa Axial Skeleton Bone Density 1 or 2 Site Imaging Schedule Routine, Read Routine (OP Routine) Postmenopausal Expected: 11/17/2023, Expires: 11/16/2024 SCREENING MAMMOGRAM BILATERAL W MAURIZIO Imaging Schedule Routine, Read Routine (OP Routine) Screening mammogram for breast cancer Expected: 11/17/2023, Expires: 01/16/2025 Scheduled Referrals Name Type Priority Associated Diagnoses Order Schedule Ambulatory referral to Urology Outpatient Referral Routine Stress incontinence, female Expected: 12/01/2023 (Approximate), Expires: 11/16/2024 documented as of this encounter Procedures Procedure Name Priority Date/Time Associated Diagnosis Comments POCT HEMOGLOBIN A1C Routine 11/17/2023 1 :54 PM CDT Type 2 diabetes mellitus with stage 3a chronic kidney disease, without long-term current use of insulin (HCC) documented in this encounter Results * POCT hemoglobin A1c (11/17/2023 1:54 PM CDT) Hemoglobin A1C, POC 6.0 4.0 - 5.6 % Blood spot 11/17/2023 1:54 PM CDT Ifrah Calvo MD POINT OF CARE TEST ORD ERABLES Final Result documented in this encounter Visit Diagnoses Diagnosis Annual physical exam- Primary Routine general medical examination at a health care facility Type 2 diabetes mellitus with stage 3a chronic kidney disease, without long-term current use of insulin (HCC) Essential hypertension Unspecified essential hypertension Acquired hypothyroidism Unspecified hypothyroidism Other chronic pancreatitis (HCC) Type 2 diabetes mellitus with hyperlipidemia (HCC) Generalized anxiety disorder Severe episode of recurrent major depressive disorder, without psychotic features (HCC) KAYLA (obstructive sleep apnea) Obstructive sleep apnea (adult) (pediatric) Statin intolerance Irritable bowel syndrome with diarrhea Irritable bowel syndrome Atherosclerosis of aorta (HCC) Atherosclerosis of aorta Migraine without aura and without status migrainosus, not intractable Gastroesophageal reflux disease without esophagitis Esophageal reflux Class 1 obesity due to excess calories with serious comorbidity and body mass index (BMI) of 31.0 to 31.9 in adult Decreased hearing of both ears Stress incontinence, female Postmenopausal Asymptomatic postmenopausal status (age-related) (natural) Screening mammogram for breast cancer Need for vaccination Need for prophylactic vaccination and inoculation against unspecified single disease Psychophysiologic insomnia Chronic cough Cough documented in this encounter Discontinued Medications Medication Sig Discontinue Reason Start Date End Da te ipratropium-albuteroL (DUO-NEB) 0.5-2.5 mg/3 mL nebulizer solution Take by nebulization every 12 (twelve) hours 160/4.5 Therapy completed 08/18/2022 11/17/2023 ascorbic acid, vitamin C, 250 mg tablet,chewable Take by mouth Therapy completed 11/17/2023 documented as of this encounter Orders Immunization/Injection Count Last Ordered Date First Ordered Date PNEUMOCOCCAL CONJUGATE VACCI NE 20 VALENT IM 1 11/17/2023 documented in this encounter Care Teams Sailing Officer Relationship Specialty Start Date End Date Ifrah Calvo MD PCP - General Family Practice 09/21/22 Unknown, Notinfile 01/02/22 Nelson Hutchison MD [address] [place], [place] [id number] Psychiatry 11/17/23 Marcelino Richards MD [address] [place], [place] [id number] Referring Physician Pulmonary Disease 11/17/23 Juni Levy MD [address] [place] [address] Referring Physician Gastroenterology 11/17/23 documented as of this encounter
--- OUTSIDE RECORDS SUMMARY | 2024-03-15 15:00 | XMS_ITS | Encounter Summary ---
Author Organization [facility] Healthcare Address [address] [place] [address] Care Team Providers Care Computerized Table Cutter Name Role Phone Ifrah Monroe MD Primary Care Provider Unknown, Notinfile Unavailable Unavailable Encounter Details Date Type Department Care Team (Late st Contact Info) Description 08/25/2023 Telephone [facility] Primary Care at [place] [id number] [place] [address] Ifrah Monroe MD [address] [place] [address] [address] [place] [address] Social History Tobacco Use Types Packs/Day Years Used Date Smoking Tobacco: Former Cigarettes Smokeless Tobacco: Never PHQ-2 Answer Date Recorded PHQ-2 Total Score (If total score is 3 or more points, staff should administer the PHQ-9) 2 07/02/2023 Personal Safety Answer Date Recorded Getting School Help Needed Not on file 03/24 Comments No Sex and Gender Information Value Date Recorded Sex Assigned at Not on file 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 No documented in this encounter Plan of Treatment Not on file documented as of this encounter Visit Diagnoses Not on filedocumented in this encounter Care Teams Computerized Table Cutter Relationship Specialty Start Date End Date Ifrah Monroe MD PCP - General Family Practice 09/21/22 Unknown, Notinfile 01/02/22 documented as of this encounter
--- OUTSIDE RECORDS SUMMARY | 2024-03-15 15:00 | XMS_ITS | Encounter Summary ---
Author Organization [facility] Healthcare Address [address] [place] [address] Care Team Providers Care Animal Nutritionist Name Role Phone Ifrah Monroe MD Primary Care Provider Unknown, Notinfile Unavailable Unavailable Nelson Hutchison MD Unavailable [phone] Marcelino Richards MD Unavailable [phone] Juni Levy MD Unavailable + Encounter Details Date Type Department Care Team (Late st Contact Info) Description 11/17/2023 4:[address] 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 Gender Identity Not on file Sexual Orientation Not on file documented as of this encounter Plan of Treatment Not on file documented as of this encounter Visit Diagnoses Diagnosis Acquired hypothyroidism- Primary Unspecified hypothyroidism documented in this encounter Care Teams Animal Nutritionist Relationship Specialty Start Date End Date Ifrah Monroe MD PCP - General Family Practice 09/21/22 Unknown, Notinfile 01/02/22 Nelson Hutchison MD [address] [place] [address] Psychiatry 11/17/23 Marcelino Richards MD [address] [place] [address] Referring Physician Pulmonary Disease 11/17/23 Juni Levy MD [address] [place] [address] Referring Physician Gastroenterology 11/17/23 documented as of this encounter
--- OUTSIDE RECORDS SUMMARY | 2024-03-15 15:00 | XMS_ITS | Encounter Summary ---
Author Organization [facility] Healthcare Address [address] [place] [address] Care Team Providers Care Right Of Way Agent Name Role Phone Ifrah Monroe MD Primary Care Provider Unknown, Notinfile Unavailable Unavailable Reason for Visit * Reason Onset Date Comments Medical Question/Miscellaneous 06/28/2023 Encounter Details Date Type Department Care Team (Late st Contact Info) Description 06/28/2023 Telephone [facility] Medical Group Primary Care at [address] [address] Ifrah Monroe MD [address] [place] [address] [address] [place] [address] Medical Question/Miscellaneous Social History Tobacco Use Types Packs/Day Years Used Date Smoking Tobacco: Former Cigarettes Smokeless Tobacco: Never PHQ-2 Answer Date Recorded PHQ-2 Total Score (If total score is 3 or more points, staff should administer the PHQ-9) 0 09/21/2022 Personal Safety Answer Date Recorded Getting School Help Needed Not on file 03/24 Comments No Sex and Gender Information Value Date Recorded Sex Assigned at Not on file 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 KITCHEN CHEF advised of letter sent and pt already has an appt on 07/02/23. Does message need to be routed? No * Telephone Encounter - Pallavi Tripp ATC - 06/29/2023 9:09 AM CDT Letter generated and placed in [facility] mail pick-up bin. * Telephone Encounter - Ifrah Monroe MD - 06/28/2023 4:49 PM CDT Patient has a known medical contraindication to Mounjaro given documented chronic pancreatitis seenon prior CT 09/2022 by her entry manager. Given she has known chronic pancreatitis on imaging she cannot take a GLP 1 or a GIP medication as these are associated with significant increased risk of barlow creatitis and are not to be used in individuals with history of acute or chronic pancreatitis due to significantly increased risk of pancreatitis which can be associated with need for hospitalization(or less commonly ). Please let her know but I apologized as previously discussed at length at her last visit, she has amedical contraindication to use of medications like Ozempic and Mounjaro (also contraindicated Trulicity, victoza, wegovy, Byetta, bydureon, zepbound). If she has not happy with my response, then she is more than welcome to seek the evaluation of an alternative physician. * Telephone Encounter - Deanna Chan - 06/28/2023 2:19 PM CDT Medical Question/Miscellaneous Caller???s Concern: Pt asking to talk to Dr Monroe regarding Mounjaro and her diabetic issues. Her knees are bothering her and she wants to talk about medication because the head grease maker that shewas referred to has not really helped. Pt says her insurance says she can get the medication. Does message need to be routed? Yes-Action Needed documented in this encounter Plan of Treatment Not on file documented as of this encounter Visit Diagnoses Not on filedocumented in this encounter Care Teams Right Of Way Agent Relationship Specialty Start Date End Date Ifrah Monroe MD PCP - General Family Practice 09/21/22 Unknown, Notinfile 01/02/22 documented as of this encounter
--- OUTSIDE RECORDS SUMMARY | 2024-03-15 15:00 | XMS_ITS | Encounter Summary ---
Author Organization [facility] Healthcare Address [address] [place] [address] Care Team Providers Care Material Assembler Name Role Phone Ifrah Monroe MD Primary Care Provider Unknown, Notinfile Unavailable Unavailable Encounter Details Date Type Department Care Team (Latest Contact Info) Description 07/02/2023 12:05 PM CDT - 07/02/2023 11:59 PM CDT Hospital Encounter [facility] [address] [place] [address] Other chronic pancreatitis (HCC); Type 2 diabetes mellitus with hyperlipidemia (HCC); Acquired hypothyroidism Discharge Disposition: Discharge to home or self care Social History Tobacco Use Types Packs/Day Years [...] on file 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 Gender Identity Not on file Sexual Orientation Not on file documented as of this encounter Medications at Time of Discharge albuterol HFA (PROVENTIL HFA,VENTOLIN HFA,PROAIR HFA) 90 mcg/actuation inhaler Inhale 2 puffs 2 (two) times a day 05/12/202 3 amitriptyline (ELAVIL) 50 mg tablet Take 1.5 tablets (75 mg total) by mouth nightly aspirin 81 mg enteric coated tablet Take 1 tablet (81 mg total) by mouth daily benzonatate (TESSALON) 200 mg capsule Take 1 capsule (200 mg total) by mouth 3 (three) times a day 3 biotin 10 mg tablet Take 1 tablet (10 mg total) by mouth daily brimonidine (ALPHAGAN) 0.15 % ophthalmic solution 1 drop 2 (two) times a day 3 calcium carbonate-vitamin D3 (CALTRATE 600 + D) 1500 mg (600 mg elemental) -400 units per tablet Take 1 tablet by mouth daily cetirizine 10 mg capsule Take by mouth daily cholecalciferol (VITAMIN D-3) 43543 unit tablet Take 1 tablet (10,000 Units total) by mouth 4 (four) times a day chromium picolinate 1,000 mcg tablet Take by mouth cyanocobalamin (Vitamin B-12) 2,500 mcg tablet, sublingualIndicatio ns:Prevention of Vitamin B12 Deficiency folic acid (FOLVITE) 800 mcg tablet Take 1 tablet (800 mcg total) by mouth daily lutein-zeaxanthin 25-5 mg capsule Take by mouth Gummy lysine 1,000 mg tablet Take 1 tablet by mouth daily magnesium oxide 400 mg magnesium tablet Take 400 mg by mouth daily montelukast (SINGULAIR) 10 mg tablet Take 1 tablet (10 mg total) by mouth daily 3 phytonadione, vit K1, (phytonadione, vitamin K1,) 100 mcg tablet Take 1 tablet (100 mcg total) by mouth 2 (two) times a day Qulipta 60 mg tablet Take 1 tablet by mouth daily 4 sertraline (ZOLOFT) 100 mg tabletIndications: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, without psychotic features (HCC) Take 1.5 tablets (150 mg total) by mouth daily 135 tablet 1 4 SUMAtriptan (IMITREX) 100 mg tablet Take 1 tablet (100 mg total) by mouth once as needed 3 topiramate (TOPAMAX) 100 mg tablet Take 2 tablets (200 mg total) by mouth 2 (two) times a day 8 Gregleomaira Ellipta 200-62.5-25 mcg inhaler Inhale 1 puff daily 3 TURMERIC ORAL Take 1,600 mg by mouth daily UNABLE TO FIND Take 1 each by mouth daily Med Name: [facility] vit D3-vit F-[id number] [id number] ykpc-xqg-mi-mg tablet Take 4 capsules by mouth daily vitamin E 400 unit capsule Take 1 capsule (400 Units total) by mouth daily zinc gluconate 50 mg tablet Take 1 tablet (50 mg total) by mouth daily ZOLMitriptan (ZOMIG) 5 mg tablet Take 1 tablet (5 mg total) by mouth once as needed for migraine ascorbic acid, vitamin C, 250 mg tablet,chewable Take by mouth 24 empagliflozin (JARDIANCE) 10 mg tabletIndications:t ype 2 diabetes mellitus Take 1 tablet (10 mg total) by mouth every morning 90 tablet 1 3 09/23/19 24 ezetimibe (ZETIA) 10 mg tablet Take 1 tablet (10 mg total) by mouth daily 90 tablet 4 3 01/10/20 24 hydroCHLOROthiazide (HYDRODIURIL) 25 mg tabletIndications:E ssential hypertension Take 1 tablet by mouth once daily 90 tablet 4 09/23/19 24 ipratropium-albuter oL (DUO-NEB) 0.5-2.5 mg/3 mL nebulizer solution Take by nebulization every 12 (twelve) hours 160/4.5 3 11/17/19 24 levothyroxine (SYNTHROID) 150 mcg tabletIndications:A cquired hypothyroidism TAKE 1 TABLET BY MOUTH ONCE DAILY IN THE MORNING BEFORE BREAKFAST 90 tablet 4 08/13/19 24 losartan (COZAAR) 100 mg tabletIndications:E ssential hypertension Take 1 tablet by mouth once daily 90 tablet 4 09/23/19 24 documented as of this encounter Discharge Disposition Disposition Code Departure Means Destination Discharge to home or self care documented in this encounter Plan of Treatment Not on file documented as of this encounter Procedures Procedure Name Priority Date/Time Associated Diagnosis Comments EGFR Routine 07/02/2023 12:05 PM CDT Type 2 diabetes mellitus with hyperlipidemia (HCC) DIFFERENTIAL AUTO Routine 07/02/2023 12: 05 PM CDT Type 2 diabetes mellitus with hyperlipidemia (HCC) CBC WITH AUTO DIFFERENTIAL Routine 07/02/2023 12:05 PM CDT Type 2 diabetes mellitus with hyperlipidemia (HCC) ALBUMIN CREATININE RATIO, URINE Routine 07/02/2023 12:05 PM CDT Type 2 diabetes mellitus with hyperlipidemia (HCC) TSH Routine 07/02/2023 12:05 PM CDT Type 2 diabetes mellitus with hyperlipidemia (HCC) Acquired hypothyroidism LIPASE Routine 07/02/2023 12:05 PM CDT Other chronic pancreatitis (HCC) LIPID PANEL Routine 07/02/2023 12:05 PM CDT Type 2 diabetes mellitus with hyperlipidemia (HCC) COMPREHENSIVE METABOLIC PANEL Routine 07/02/2023 12:05 PM CDT Type 2 diabetes mellitus with hyperlipidemia (HCC) documented in this encounter Results * (ABNORMAL) eGFR (07/02/2023 12:05 PM CDT) [facility] eGFR 56(L) >=60 mL/min/1. 73 m2 Comment: [...] 5 PM CDT 07/02/2023 10:29 PM CDT us Ifrah Monroe MD LAB BLOOD ORDERABLES F inal Result [facility] [address] Department [place] [address] * Differential, auto (07/02/2023 12:05 PM CDT) Neutrophil abs 3.9 1.5 - 6.5 K/cumm Imm gran abs 0.0 0.0 - 0.1 K/cumm [facility] Lymphocyte abs 1.3 0.8 - 3.3 K/cumm [facility] Monocyte abs 0.4 0.2 - 0.8 K/cumm [facility] Eosinophil abs 0.1 0.0 - 0.5 K/cumm [facility] Basophil abs 0.1 0.0 - 0.1 K/cumm [facility] Neutrophil pct 67.6 % [facility] Comment: Interpretive Data Percent cell count reference ranges are not reported, since discordance with absolute values may lead to misinterpretation of CBC data. Current Interpretive Data was last revised on 2017. Imm gran pct 0.7 % [facility] Comment: Interpretive Data Percent cell count reference ranges are not reported, since discordance with absolute values may lead to misinterpretation of CBC data. Current Interpretive Data was last revised on 2017. Lymphocyte pct 22.4 % [facility] Comment: Interpretive Data Percent cell count reference ranges are not reported, since discordance with absolute values may lead to misinterpretation of CBC data. Current Interpretive Data was last revised on 2017. Monocyte pct 6.1 % [facility] Comment: Interpretive Data Percent cell count reference ranges are not reported, since discordance with absolute values may lead to misinterpretation of CBC data. Current Interpretive Data was last revised on 2017. Eosinophil pct 2.1 % [facility] Comment: Interpretive Data Percent cell count reference ranges are not reported, since discordance with absolute values may lead to misinterpretation of CBC data. Current Interpretive Data was last revised on 2017. Basophil pct 1.1 % [facility] Comment: Interpretive Data Percent cell count reference ranges are not reported, since discordance with absolute values may lead to misinterpretation of CBC data. Current Interpretive Data was last revised on 2017. Blood 07/02/2023 12:0 5 PM CDT 07/02/2023 9:30 PM CDT us Ifrah Monroe MD LAB BLOOD ORDERABLES F inal Result [facility] [address] Department [place] [address] * Comprehensive metabolic panel (07/02/2023 12:05 PM CDT) Sodium 140 135 - 145 mmol/L Potassium, pl 4.1 3.3 - 4.9 mmol/L [facility] Chloride 102 97 - 110 mmol/L [facility] CO2 26 22 - 32 mmol/L [facility] Anion gap 12 2 - 15 mmol/L [facility] BUN 25 6 - 25 mg/dL [facility] Creatinine 1.10 0.60 - 1.10 mg/dL [facility] Glucose 118 70 - 199 mg/dL [facility] Comment: Interpretive Data Fasting glucose >/= 126 mg/dl is diagnostic for diabetes. ?? Fasting is defined as no caloric intake for at least 8 hours. Fasting glucose between 100 mg/dl to 125 mg/dl is diagnostic of prediabetes. In a patient with classic symptoms of hyperglycemia or hyperglycemic crisis, a random glucose >/= 200 mg/dl is diagnostic for diabetes. In the absence of unequivocal hyperglycemia, results should be confirmed by repeat testing. The classification and Diagnosis of Diabetes Diabetes Care 2021; 46: S19-S40. Current interpretive data was last revised 2022. Calcium 10.0 8.5 - 10.3 mg/dL [facility] Bilirubin, total 0.3 0.1 - 1.2 mg/dL [facility] Protein, pl 7.7 6.5 - 8.5 g/dL [facility] Albumin 4.5 3.5 - 5.0 g/dL [facility] Alk phos 87 40 - 130 Units/L [facility] ALT 10 7 - 45 Units/L [facility] AST 23 10 - 45 Units/L [facility] Blood 07/02/2023 12:0 5 PM CDT 07/02/2023 9:30 PM CDT Ifrah Monroe MD LAB [place]LOOD [place] [id number] [address] Department [place] [address] * (ABNORMAL) Lipid panel (07/02/2023 12:05 PM [...] revised on 2017. Triglycerides 140 <=149 mg/dL [facility] Comment: Interpretive Data Ages < or = [...] 2017. LDL, calculated 145(H) <=129 mg/dL [facility] Comment: Interpretive Data Ages < or = [...] revised on 2017. Non-HDL Cholesterol 173 mg/dL [facility] Comment: Interpretive Data Ages < or = [...] last revised on 2017. Chol/HDL ratio 4 [facility] Blood 07/02/2023 12:0 5 PM CDT 07/02/2023 9:30 PM CDT us Ifrah Monroe MD LAB BLOOD ORDERABLES F inal Result [facility] [address] [address] Department [place] [address] * (ABNORMAL) CBC with auto differential (07/02/2023 12:05 PM CDT) WBC 5.7 3.8 - 9.9 K/cumm Hgb 15.5 11.9 - 15.5 g/dL [facility] Hct 48.9(H) 35.6 - 45.5 % [facility] Plt 322 150 - 400 K/cumm [facility] MPV 9.5 9.1 - 12.3 fL [facility] RBC 5.07 3.90 - 5.20 M/cumm [facility] MCV 96.4 81.3 - 96.4 fL [facility] CH MCH 30.6 27.1 - 33.3 pg [facility] MCHC 31.7(L) 32.3 - 35.7 g/dL [facility] RDW CV 14.0 11.1 - 14.9 % [facility] RDW SD 49.5(H) 35.7 - 48.1 fL [facility] NRBC abs 0.00 0.00 - 0.01 K/cumm [facility] Blood 07/02/2023 12:0 5 PM CDT 07/02/2023 9:30 PM CDT Ifrah Monroe MD LAB BLOOD ORDERABLES F inal Result Performing Organization Address City/[facility]/ZIP Co de Phone Number [facility] [address] [address] [place] [address] * (ABNORMAL) TSH (07/02/2023 12:05 PM CDT) Pathologist [facility] Thyroid Stimulating Hormone 9.01(H) 0.30 - 4.20 mcIUnit/mL Blood 07/02/2023 12:0 5 PM CDT 07/02/2023 9:30 PM CDT Ifrah Monroe MD LAB BLOOD ORDERABLES F inal Result Performing Organization Address City/[facility]/ZIP Co de Phone Number [facility] [address] [address] [place] [address] * Albumin Creatinine Ratio, Urine (07/02/2023 12:05 PM CDT) Albumin Ur <12.0 mg/L Comment: Interpretive Data No reference range established. Current interpretive data was last revised 2018. Creatinine Ur 190.0 mg/dL [facility] Comment: Interpretive Data No reference range established. Current interpretive data was last revised 2018. Albumin Creatinine Ratio, Ur <6 1 - 29 mg/g [facility] Urine 07/02/2023 12:0 5 PM CDT 07/02/2023 9:31 PM CDT us Ifrah Monroe MD LAB URINE ORDERABLES F inal Result Performing Organization Address City/[facility]/ZIP Co de Phone Number [facility] [address] [address] [place] [address] * Lipase (07/02/2023 12:05 PM CDT) Lipase 33 10 - 99 Units/L Blood 07/02/2023 12:0 5 PM CDT 07/02/2023 9:30 PM CDT us Ifrah Monroe MD LAB BLOOD ORDERABLES F inal Result Performing Organization Address [facility] de Phone Number [facility] [address] [address] [place] [address] documented in this encounter Visit Diagnoses Diagnosis Other chronic pancreatitis (HCC) Type 2 diabetes mellitus with hyperlipidemia (HCC) Acquired hypothyroidism Unspecified hypothyroidism documented in this encounter Care Teams Material Assembler Relationship Specialty Start Date End Date Ifrah Monroe MD PCP - General Family Practice 09/21/22 Unknown, Notinfile 01/02/22 documented as of this encounter
--- OUTSIDE RECORDS SUMMARY | 2024-03-15 15:00 | XMS_ITS | Encounter Summary ---
Author Organization [facility] Healthcare Address [address] [place] [address] Care Team Providers Care Coke Production Heater Name Role Phone Irfah Monroe MD Primary Care Provider Unknown, Notinfile Unavailable Unavailable Reason for Visit * Reason Onset Date Comments Symptom Based Call 09/09/2023 Encounter Details Date Type Department Care Team (Late st Contact Info) Description 09/09/2023 Telephone [facility] Medical Group Primary Care at [address] [address] Ifrah Monroe MD [address] [place] [address] [address] [place] [address] Symptom Based Call Social History Tobacco Use Types Packs/Day Years [...] on file 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 She does not need to complete it until near the end of August orbeginning of September since we did go ahead and change her thyroid dose at the end of July after she requested the medication be refilled at the higher dose. We want her on 175 mcg dose of the levothyroxine for least 4 weeks before she does the repeat thyroid level Patient can try taking melatonin 5 mg nightly as needed see if that can help with insomnia. She canalso try diphenhydramine (Benadryl) 25-50 mg prior to bed [id number]. If neither these are effective then we can look at possible very sparing use of a prescription sleep med that would have marc used no more than a few nights a week given risk for dependence with regular use * Telephone Encounter - Dafne Zheng - 09/09/2023 11:13 AM CDT Symptom Based Call Chief Complaint(s): Insomnia and fatigue Duration: 3 days What type of symptom(s) is the patient experiencing? Non-Emergent. Is this a new or reoccurring symptom(s)? Reoccurring What have you tried to help your symptom(s)? amitriptyline (ELAVIL) 50 mg tablet And topiramate (TOPAMAX) 100 mg tablet Why was appointment not scheduled? Patient refusing appointment regardless of availability. Additional Comments: Patient responding to letter from 07/08/23 and states that she is still feelingtired and not going to bed until around 5 am and waking up at 2:30 pm and still feeling tired. Willcheck that repeat lab is covered and complete Does message need to be routed? Yes-Action Needed documented in this encounter Plan of Treatment Not on file documented as of this encounter Visit Diagnoses Not on filedocumented in this encounter Care Teams Coke Production Heater Relationship Specialty Start Date End Date Ifrah Monroe MD PCP - General Family Practice 09/21/22 Unknown, Notinfile 01/02/22 documented as of this encounter
--- OUTSIDE RECORDS SUMMARY | 2024-03-15 15:00 | XMS_ITS | Encounter Summary ---
Author Organization [facility] Healthcare Address [address] [place] [address] Care Team Providers Care Information Systems Security Specialist Name Role Phone Ifrah Monroe MD Primary Care Provider Unknown, Notinfile Unavailable Unavailable Nelson Hutchison MD Unavailable [phone] Marcelino Richards MD Unavailable [phone] Juni Levy MD Unavailable + Reason for Visit * Reason Onset Date Comments Medical Question/Miscellaneous 11/17/2023 Encounter Details Date Type Department Care Team (Late st Contact Info) Description 11/17/2023 Telephone [facility] Medical Group Primary Care at [address] [address] Ifrah Monroe MD [address] [place] [address] [address] [place] [address] Medical Question/Miscellaneous Social History Tobacco [...] on file 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 AC informed her that the orders are on file and the lab is open, she plans to have this test done today. Does message need to be routed? No documented in this encounter Plan of Treatment Not on file documented as of this encounter Visit Diagnoses Not on filedocumented in this encounter Care Teams Information Systems Security Specialist Relationship Specialty Start Date End Date Ifrah Monroe MD PCP - General Family Practice 09/21/22 Unknown, Notinfile 01/02/22 Nelson Hutchison MD [address] [place], [place] [id number] Psychiatry 11/17/23 Marcelino Richards MD [address] [place], [place] [id number] Referring Physician Pulmonary Disease 11/17/23 Juni Levy MD [address] [place] [address] Referring Physician Gastroenterology 11/17/23 documented as of this encounter
--- OUTSIDE RECORDS SUMMARY | 2024-03-15 15:00 | XMS_ITS | Encounter Summary ---
Author Organization [facility] Address [address] [place] [address] Phone Care Team Providers Care Ordained Minister Name Role Phone Ifrah Monroe MD Primary Care Provider Unknown, Notinfile Unavailable Unavailable Reason for Visit * Consultation (Routine) - Authorized Specialty Diagnoses / Procedures Referred By Contac t Referred To Contact Diagnoses Type 2 diabetes mellitus with hyperlipidemia (HCC) Atherosclerosis of aorta (HCC) Other chronic pancreatitis (HCC) Essential hypertension Acquired hypothyroidism Irritable bowel syndrome with diarrhea Psychophysiologic insomnia Lumbar spondylosis Spondylolisthesis, lumbar region Class 1 obesity due to excess calories with serious comorbidity and body mass index (BMI) of 32.0 to 32.9 in adult Ifrah Monroe MD Phone: tel: fax: [facility] (All Locations) Referral ID Status Reason Start Date Expiration Date Visits Requested Visits Authorized [id number] Authorized Specialty Services Required 05/03/2023 06/01/2024 12 12 Encounter Details Date Type Department Care Team (Latest Contact Info) Description 05/25/2023 11:00 AM VISUAL INSPECTOR Clinical Support [facility] Orth[facility] [address] [place] [address] Medical Office Building [address] [place] [address] [place] [address] Hyperlipidemia, unspecified hyperlipidemia type (Primary Dx); Type 2 diabetes mellitus with hyperlipidemia (HCC); Atherosclerosis of aorta (HCC); Other chronic pancreatitis (HCC); Essential hypertension; Acquired hypothyroidism; Irritable bowel syndrome with diarrhea; Psychophysiologic insomnia; Lumbar spondylosis; Spondylolisthesis, lumbar region; Class 1 obesity due to excess calories with serious comorbidity and body mass index (BMI) of 32.0 to 32.9 in adult Social History Tobacco Use Types Packs/Day Years [...] on file 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 who presents to the [facility] for nutrition counseling. She getsfrustrated because weight loss is slow for her. She loves sweets. She has tried many diets. She does not sleep well and snacks at night. She also has IBS and GERD. She is taking jardiance. PAST MEDICAL HISTORY She has a past medical history of Back pain, Depression, Esophageal hiatal hernia, FELY (generalizedanxiety disorder), Hyperlipidemia, Hypertension, Hypothyroidism (acquired), Major depression, Migraine without aura, and Sleep difficulties. 24-hour dietary recall Breakfast- atkins coffee mocha shake, coffee with whipping cream Lunch- none Dinner- bread with chicken lettuce, burkett, sprinkled cheese, dressing Snacks- 4 vanilla wafers, atkins peanut butter cups, breakfast sugar wafers Beverages- unsweetened tea with monk fruit PHYSICAL EXAMINATION CONSTITUTIONAL: Well-appearing, in no apparent distress EYES: No scleral icterus or conjunctival hemorrhage CARDIOVASCULAR: Skin warm and well-perfused, no peripheral edema RESPIRATORY: Breathing unlabored without accessory muscle use PSYCHIATRIC: Alert, cooperative, appropriate mood and affect SKIN: No lesions or rashes on exposed skin Wt Readings from Last 5 Encounters: 05/03/23 96.4 kg (212 lb 8 oz) 12/30/22 95.7 kg (211 lb) 10/09/22 100.2 kg (221 lb) 09/21/22 99.8 kg (220 lb) REVIEW OF STUDIES Lab Results Component Value Date HGBA1C 5.8 05/03/2023 CHOL 331 (H) 09/21/2022 TRIG 191 (H) 09/21/2022 HDL 59 09/21/2022 LDLCALC 234 (H) 09/21/2022 NONHDLCHOL 272 09/21/2022 CHOLHDL 6 09/21/2022 IMPRESSION/DIAGNOSIS Obesity, BMI 32.31 kg/m2 Type 2 diabetes Hyperlipidemia Hypertension TREATMENT/PLAN Plant-based nutrition is being prescribed as first-line intervention for treating obesity, prediabetes, hyperlipidemia, hypertension. Patients primary goal is weight loss. I spent 30 minutes with her. 1. Recommend decreasing processed food 2. Begin by including whole foods you know you like at each meal 3. Provided suggestions 4. Provided resources Hai Apple RD [facility] Division of Physical Medicine and Rehabilitation [facility] is a multidisciplinary program that empowers patients with musculoskeletal conditions to improve their overall health using lifestyle medicine. We collaborate with patients to implement evidence-based lifestyle interventions to address the comorbidities that are often barriers to success. The 90-120 day program may include elements of weight loss, nutrition changes, smokingcessation, stress reduction, sleep, physical activity, physical therapy, medical massage, and acupuncture. AL INSPECTOR documented in this encounter Plan of Treatment Not on file documented as of this encounter Visit Diagnoses Diagnosis Hyperlipidemia, unspecified hyperlipidemia type- Primary Type 2 diabetes mellitus with hyperlipidemia (HCC) Atherosclerosis of aorta (HCC) Atherosclerosis of aorta Other chronic pancreatitis (HCC) Essential hypertension Unspecified essential hypertension Acquired hypothyroidism Unspecified hypothyroidism Irritable bowel syndrome with diarrhea Irritable bowel syndrome Psychophysiologic insomnia Lumbar spondylosis Lumbosacral spondylosis without myelopathy Spondylolisthesis, lumbar region Class 1 obesity due to excess calories with serious comorbidity and body mass index (BMI) of 32.0 to 32.9 in adult documented in this encounter Orders Outpatient Referral Count Last Ordered Date Fir st Ordered Date AMB REFERRAL TO THE [facility] 1 documented in this encounter Care Teams Ordained Minister Relationship Specialty Start Date End Date Ifrah Monroe MD PCP - General Family Practice 09/21/22 Unknown, Notinfile 01/02/22 documented as of this encounter
--- OUTSIDE RECORDS SUMMARY | 2024-03-15 15:00 | XMS_ITS | Encounter Summary ---
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
--- OUTSIDE RECORDS SUMMARY | 2024-03-15 15:00 | XMS_ITS | Encounter Summary ---
Author Organization [facility] Healthcare Address [address] [place] [address] Care Team Providers Care Artist Manager Name Role Phone Ifrah Monroe MD Primary Care Provider Unknown, Notinfile Unavailable Unavailable Nelson Hutchison MD Unavailable [phone] Marcelino Richards MD Unavailable [phone] Juni Levy MD Unavailable + Encounter Details Date Type Department Care Team (Latest Contact Info) Description 11/17/2023 3:58 PM CDT - 11/17/2023 11:59 PM CDT Hospital Encounter [address] [address] Acquired hypothyroidism; Chronic nausea; Need for hepatitis B screening test Discharge Disposition: Discharge to home or self [...] on file 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 Gender Identity Not on file Sexual Orientation Not on file documented as of this encounter Medications at Time of Discharge albuterol HFA (PROVENTIL HFA,VENTOLIN HFA,PROAIR HFA) 90 mcg/actuation inhaler Inhale 2 puffs 2 (two) times a day 08/07/2022 amitriptyline (ELAVIL) 50 mg tablet Take 1.5 tablets (75 mg total) by mouth nightly aspirin 81 mg enteric coated tablet Take 1 tablet (81 mg total) by mouth daily benzonatate (TESSALON) 200 mg capsule Take 1 capsule (200 mg total) by mouth 3 (three) times a day 12/18/2022 biotin 10 mg tablet Take 1 tablet (10 mg total) by mouth daily brimonidine (ALPHAGAN) 0.15 % ophthalmic solution 1 drop 2 (two) times a day 07/02/2022 calcium carbonate-vitamin D3 (CALTRATE 600 + D) 1500 mg (600 mg elemental) -400 units per tablet Take 1 tablet by mouth daily cetirizine 10 mg capsule Take by mouth daily cholecalciferol (VITAMIN D-3) 42232 unit tablet Take 1 tablet (10,000 Units total) by mouth 4 (four) times a day chromium picolinate 1,000 mcg tablet Take by mouth cyanocobalamin (Vitamin B-12) 2,500 mcg tablet, sublingualIndicatio ns:Prevention of Vitamin B12 Deficiency folic acid (FOLVITE) 800 mcg tablet Take 1 tablet (800 mcg total) by mouth daily levothyroxine (SYNTHROID) 175 mcg tabletIndications:A cquired hypothyroidism Take 1 tablet (175 mcg total) by mouth 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 90 tablet 1 08/13/2023 lutein-zeaxanthin 25-5 mg capsule Take by mouth Gummy lysine 1,000 mg tablet Take 1 tablet by mouth daily magnesium oxide 400 mg magnesium tablet Take 400 mg by mouth daily montelukast (SINGULAIR) 10 mg tablet Take 1 tablet (10 mg total) by mouth daily 12/24/2022 omeprazole (PriLOSEC) 40 mg capsule Take 1 capsule (40 mg total) by mouth daily 11/17/2023 phytonadione, vit K1, (phytonadione, vitamin K1,) 100 mcg tablet Take 1 tablet (100 mcg total) by mouth 2 (two) times a day Qulipta 60 mg tablet Take 1 tablet by mouth daily 04/06/2023 sertraline (ZOLOFT) 100 mg tabletIndications: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, without psychotic features (HCC) Take 1.5 tablets (150 mg total) by mouth daily 135 tablet 1 05/03/2023 SUMAtriptan (IMITREX) 100 mg tablet Take 1 tablet (100 mg total) by mouth once as needed 11/24/2022 topiramate (TOPAMAX) 100 mg tablet Take 2 tablets (200 mg total) by mouth 2 (two) times a day 11/19/2017 Trelegy Ellipta 200-62.5-25 mcg inhaler Inhale 1 puff daily 12/22/2022 TURMERIC ORAL Take 1,600 mg by mouth daily UNABLE TO FIND Take 1 each by mouth daily Med Name: Brain [facility] vit D3-vit U-nkmiaxdvg-wrdg [phone] rprd-btp-og-mg tablet Take 4 capsules by mouth daily vitamin E 400 unit capsule Take 1 capsule (400 Units total) by mouth daily zinc gluconate 50 mg tablet Take 1 tablet (50 mg total) by mouth daily ZOLMitriptan (ZOMIG) 5 mg tablet Take 1 tablet (5 mg total) by mouth once as needed for migraine ezetimibe (ZETIA) 10 mg tablet Take 1 tablet (10 mg total) by mouth daily 90 tablet 4 2022 4 hydroCHLOROthiazide (HYDRODIURIL) 25 mg tabletIndications:E ssential hypertension Take 1 tablet by mouth once daily 90 tablet 09/23/2023 4 Jardiance 10 mg tabletIndications:T ype 2 diabetes mellitus without complication, without long-term current use of insulin (CMS/HCC) (HCC) TAKE 1 TABLET BY MOUTH ONCE DAILY IN THE MORNING 90 tablet 09/23/2023 4 losartan (COZAAR) 100 mg tabletIndications:E ssential hypertension Take 1 tablet by mouth once daily 90 tablet 09/23/2023 4 documented as of this encounter Discharge Disposition Disposition Code Departure Means Destination Discharge to home or self care documented in this encounter Plan of Treatment Not on file documented as of this encounter Procedures Procedure Name Priority Date/Time Associated Diagnosis Comments HEPATITIS B SURFACE ANTIGEN Routine 11/17/2023 3:58 PM CDT Chronic nausea Need for hepatitis B screening test TSH Routine 11/17/2023 3:58 PM CDT Acquired hypothyroidism documented in this encounter Results * Hepatitis B Surface Antigen Blood (11/17/2023 3:58 PM CDT) HepBsAg Nonreactive Nonreactive Blood 11/17/2023 3:58 PM CDT 11/17/2023 9:26 PM CDT us Ifrah Monroe MD LAB MICROBIOLOGY - GEN ERAL ORDERABLES Final Result Performing Organization Address [facility] Co de Phone Number JOAQUIN SNEHAL [phone] [place] [place] [address] * TSH (11/17/2023 3:58 PM CDT) Thyroid Stimulating Hormone 2.57 0.30 - 4.20 mcIUnit/mL Blood 11/17/2023 3:58 PM CDT 11/17/2023 9:26 PM CDT us Ifrah Monroe MD LAB BLOOD ORDERABLES F inal Result Performing Organization Address [facility] Co de Phone Number JOAQUIN [phone] [address] [employer] [place], [place] [id number] documented in this encounter Visit Diagnoses Diagnosis Acquired hypothyroidism Unspecified hypothyroidism Chronic nausea Nausea alone Need for hepatitis B screening test documented in this encounter Care Teams Artist Manager Relationship Specialty Start Date End Date Ifrah Monroe MD PCP - General Family Practice 09/21/22 Unknown, Notinfile 01/02/22 Nelson Hutchison MD [address] [place], [place] [id number] Psychiatry 11/17/23 Marcelino Richards MD [address] [place] [address] Referring Physician Pulmonary Disease 11/17/23 Juni Levy MD [address] [place] [address] Referring Physician Gastroenterology 11/17/23 documented as of this encounter
--- OUTSIDE RECORDS SUMMARY | 2024-03-15 15:00 | XMS_ITS | Encounter Summary ---
Author Organization [facility] Healthcare Address [address] [place] [address] Care Team Providers Care Guest Services Director Name Role Phone Ifrah Monroe MD Primary Care Provider Unknown, Notinfile Unavailable Unavailable Reason for Visit * Reason Onset Date Comments Lab Results 07/07/2023 Encounter Details Date Type Department Care Team (Late st Contact Info) Description 07/07/2023 Telephone [facility] Primary Care at [address] [address] Ifrah Monroe MD [address] [place] [address] [address] [place] [address] Lab Results Social History Tobacco Use Types Packs/Day Years [...] on file 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 Letter generated as well and placed in [facility] mail pick-up bin. * Telephone Encounter - Ifrah Monroe MD - 07/08/2023 10:17 AM CDT Hep C test was done last year and was negative so it was not repeated. The hepatitis-B screening test was negative Patient's A1c was not checked as it was checked less than 2 months ago so insurance would not typically covered for it to be checked more frequent than every 3-6 months. Her last A1c was very good sowas not needed on these labs Please verify what patient's question or concern in regards to the potential adjustment on thyroid medication. If they are truly has been no missed dose then going to the higher dose would be recommended with a repeat thyroid level in 6 weeks. The TSH suggested that she has currently not on enough thyroid medication. This can either be because the dose needs to be increased or patient has missed some doses making it look like she has not taking enough. If there has been no missed doses then it indicates that she has not on a strong enough dose anymore so dose increase is typically recommended If patient does not want to make the adjustment then we can stay on same dose and still plan to repeat the thyroid level in 6 weeks for reassessment. * Telephone Encounter - Debra Garcia - 07/08/2023 9:58 AM CDT Pt called in with additional questions regarding her lab results that were provided to her yesterday. She would like to know if her AIC was checked at all. She would like to know the results from the Hep C test. She expressed concern regarding the increased thyroid Rx. She stated she would appreciate a call back as soon as someone is available to go over this with her. * Telephone Encounter - Kathe Daniels - 07/08/2023 9:25 AM CDT Call Back Caller???s Concern: Pt returning call to the office regarding labs. Relayed inquiry and results to patient, and provider recommendations, patient understood. The pt has not missed any doses, stated she take levothyroxine the first thing in the morning alone, stated she has been feeling really tiredand losing hair. She is also requesting the new prescription be called in to her pharmacy for 175 mcg of levothyroxine. Pt had additional questions, warm transferred to the backline Does message need to be routed? No * Telephone Encounter - Kamille Duarte MA - 07/07/2023 2:15 PM CDT Attempted to contact Angelica with no answer. LMOM to contact the office back at [phone] Regarding: Telephone task has been made. Please relay: TSH - TSH is mildly elevated. This indicates you may not be on enough thyroid medication. Have you missed any doses of levothyroxine over the last 6 weeks. If not then we want to go ahead and increase her thyroid dose. If there have been some missed doses then we will stay on the same dose and repeat the thyroid level in 6 weeks to see if it goes back to the normal range. It takes 6 weeks of consistent use of the thyroid medication for this to level off. Please let me know. If no missed doses and we will plan to increase the levothyroxine from 150 to 175 mcg and repeat a level in 6 weeks (repeat TSH will be needed either way in 6 weeks so order placed) Cholesterol levels are much better than 9 months ago but still not at goal. LDL has improved from 234 to 145. Please continue ezetimibe as it is showing some benefit. Continue to work on trying to follow a healthy diabetic diet, get regular exercise and work on achieving a healthy body weight. We will continue to monitor this CBC (blood counts) are ok. No concerning findings Lipase was normal. No signs of acute pancreatitis. However, the lipase can be normal in chronic pancreatitis so this does not rule out that there is the chronic pancreatitis as noted on prior CT CMP - electrolytes and liver enzymes are normal. Kidney function is stable. It is borderline for very slight chronic kidney disease. We will need to monitor this but it is often a side effect of having chronic diabetes. It is stable compared to last year Microalbumin-creatinine ratio normal. No signs of diabetic kidney injury on urine test Letter has been mailed * Telephone Encounter - Kamille Duarte MA - 07/07/2023 2:15 PM CDT ----- Message from Ifrah Monroe MD sent at 07/06/2023 8:03 PM CDT ----- TSH - TSH is mildly elevated. This indicates you may not be on enough thyroid medication. Have you missed any doses of levothyroxine over the last 6 weeks. If not then we want to go ahead and increase her thyroid dose. If there have been some missed doses then we will stay on the same dose and repeat the thyroid level in 6 weeks to see if it goes back to the normal range. It takes 6 weeks of consistent use of the thyroid medication for this to level off. Please let me know. If no missed doses and we will plan to increase the levothyroxine from 150 to 175 mcg and repeat a level in 6 weeks (repeat TSH will be needed either way in 6 weeks so order placed) Cholesterol levels are much better than 9 months ago but still not at goal. LDL has improved from 234 to 145. Please continue ezetimibe as it is showing some benefit. Continue to work on trying to follow a healthy diabetic diet, get regular exercise and work on achieving a healthy body weight. We will continue to monitor this CBC (blood counts) are ok. No concerning findings Lipase was normal. No signs of acute pancreatitis. However, the lipase can be normal in chronic pancreatitis so this does not rule out that there is the chronic pancreatitis as noted on prior CT CMP - electrolytes and liver enzymes are normal. Kidney function is stable. It is borderline for very slight chronic kidney disease. We will need to monitor this but it is often a side effect of having chronic diabetes. It is stable compared to last year Microalbumin-creatinine ratio normal. No signs of diabetic kidney injury on urine test documented in this encounter Plan of Treatment Not on file documented as of this encounter Visit Diagnoses Not on filedocumented in this encounter Care Teams Guest Services Director Relationship Specialty Start Date End Date Ifrah Monroe MD PCP - General Family Practice 09/21/22 Unknown, Notinfile 01/02/22 documented as of this encounter
--- OUTSIDE RECORDS SUMMARY | 2024-03-15 15:00 | XMS_ITS | Encounter Summary ---
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 90 tablet 1 08/13/2023 documented in this encounter Miscellaneous Notes * Telephone Encounter - Ifrah Monroe MD - 08/13/2023 2:05 PM CDT Received message from patient's pharmacy stating patient is requesting change of the levothyroxine to 175 mcg daily. She would never responded to our prior results message asking if there were any missed doses and if no missed doses about recommendation to increase to 175 mg dosing. I am taking this to mean that she has not missed any doses and is agreeable with going up to 175 mcg dosing as was recommended given TSH indicated under replacement documented in this encounter Plan of Treatment Not on file documented as of this encounter Visit Diagnoses Diagnosis Acquired hypothyroidism Unspecified hypothyroidism documented in this encounter Discontinued Medications Medication Sig Discontinue Reason Start Date End Da te levothyroxine (SYNTHROID) 150 mcg tabletIndications:Acquire d hypothyroidism TAKE 1 TABLET BY MOUTH ONCE DAILY IN THE MORNING BEFORE BREAKFAST 06/25/2023 08/13/2023 documented as of this encounter Care Teams Supervisor Specialty Plant Relationship Specialty Start Date End Date Ifrah Monroe MD PCP - General Family Practice 09/21/22 Unknown, Notinfile 01/02/22 documented as of this encounter
--- OUTSIDE RECORDS SUMMARY | 2024-03-15 15:00 | XMS_ITS | Encounter Summary ---
Author Organization Formerly [facility] Address [address] [place] [address] Care Team Providers Care Cosmetology Educator Name Role Phone Ifrah Clemente MD Primary Care Provider Unknown, Notinfile Unavailable Unavailable Reason for Referral * Consultation (Routine) - Closed Specialty Diagnoses / Procedures Referred By Contac t Referred To Contact Psychiatry Diagnoses Generalized anxiety disorder Severe episode of recurrent major depressive disorder, without psychotic features (HCC) Ifrah Clemente MD Phone: tel: fax: Kody Reynoso MD [address] [place] [address] Phone: tel: fax: Referral ID Status Reason Start Date Expiration Date V isits Requested Visits Authorized [id number] Closed Specialty Services Required 07/02/2023 07/31/2024 1 1 Question Answer Please select the performing region: External Order [171] To provider: KODY REYNOSO [[id number]] # of visits: 1 Comments [facility] [employer] [facility] MD Anna Chapa NP Jaime Mendoza, NP Janet Woloszynek, NP [phone] * Consultation (Routine) - Closed Specialty Diagnoses / Procedures Referred By Contac t Referred To Contact Gastroenterology Diagnoses Hiatal hernia Chronic pancreatitis, unspecified pancreatitis type (HCC) Gastroesophageal reflux disease without esophagitis Chronic nausea Ifrah Clemente MD Phone: tel: fax: Milo Trevino MD [address] [place] [address] Phone: tel: fax: Referral ID Status Reason Start Date Expiration Date V isits Requested Visits Authorized [id number] Closed Specialty Services Required 07/02/2023 07/31/2024 6 6 Question Answer Please select the performing region: External Order [171] To provider: MILO TREVINO [[id number]] # of visits: 6 Reason for Visit * Reason Comments Follow-up Pt is here for a f/u of her mood. Encounter Details Date Type Department Care Team (Latest Contact Info) Description 07/02/2023 11:00 AM CDT Office Visit [facility] Primary Care at [address] [id number] Ifrah Clemente MD [address] [facility] [address] [place] [address] Other chronic pancreatitis (HCC) (Primary Dx); Hiatal hernia; Gastroesophageal reflux disease without esophagitis; Chronic nausea; Generalized anxiety disorder; Severe episode of recurrent major depressive disorder, without psychotic features (HCC); Essential hypertension; Type 2 diabetes mellitus with hyperlipidemia (HCC); Acquired hypothyroidism; Statin intolerance; Familial multiple lipoprotein-type hyperlipidemia; Lumbar spondylosis; Spondylolisthesis, lumbar region; KAYLA (obstructive sleep apnea); Migraine without aura and without status migrainosus, not intractable; Class 1 obesity due to excess calories with serious comorbidity and body mass index (BMI) of 32.0 to 32.9 in adult; Atherosclerosis of aorta (HCC); Need for hepatitis B screening test Social History Tobacco Use Types Packs/Day Years [...] on file Legal Sex Female 7:49 PM [employer] Gender Identity Not on file Sexual Orientation Not on file documented as of this encounter Last Filed Vital Signs Vital Sign Reading Time Taken Comments Blood Pressure 128/86 07/02/2023 10:52 AM CDT Pulse 81 07/02/2023 10:52 AM CDT Temperature - - Respiratory Rate - - Oxygen Saturation - - Inhaled Oxygen Concentration - - Weight 96.7 kg (213 lb 3.2 oz) 07/02/2023 10:52 AM CDT Height 172.7 cm (5' 8 ) 07/02/2023 10:52 AM CDT Body Mass Index 32.42 07/02/2023 10:52 AM CDT documented in this encounter Patient Instructions * Patient Instructions* Ifrah Clemente MD - 07/02/2023 11:00 AM CDT Caring For Your Diabetes Get labs done today Follow a diabetic diet with healthy meals that are low salt, low fat, high fiber. For more information on a diabetic diet, please go to the [place] [employer] website at www.diabetes.org and select [...] minutes if trying to lose weight) The [place] [employer] recommends all adults [...] a healthy weight. Body mass index is 32.42 kg/m??. If your BMI (a ratio of your weight to your height) is over 25, it is recommended that you try to exercise and eat healthier in an effort to lose a few pounds Continue current medications: Yes Please call office during routine office hours if any questions or concerns. See me in 4 months * Attachments The following attachments cannot be sent through Care Everywhere. * Pancreatitis (General Information) (Tamazight) documented in this encounter Progress Notes * Ifrah Clemente MD - 07/02/2023 11:00 AM CDT SUBJECTIVE: Angelica Cowan is a 67 y.o. female here for follow up visit struggles with her chronic abdominal pain, Hiatal hernia, GERD< nausea and findings of chronic pancreatitis on prior imaging. Pt reports understands now why cannot use GLP-1/GIP Willing to see GI for evaluation. Does not PPI Struggling with depression. Wants to see psychiatry. Wants referral to [facility]. On sertraline 150 mg daily. Unsure if helpi ng PHQ Screening Over the past 2 weeks, how often have you been bothered by any of the following problems? Little Interest or Pleasure in Doing Things: Several days Feeling Down, Depressed, or Hopeless: Several days PHQ-2 Total Score (If total score is 3 or more points, staff should administer the PHQ-9): 2 Trouble Falling or Staying Asleep, or Sleeping too Much: Nearly every day Feeling Tired or Having Little Energy: Nearly every day Poor Appetite or Overeating: Several days Feeling Bad About Yourself - or That [...] Not at all PHQ-9 Total Score: 10 FELY-7 Feeling nervous, anxious, or on edge: Over half the days Not being able to stop or control worrying: Nearly every day Worrying too much about different things: Over half the days Trouble relaxing: Several days Being so restless that it's hard to sit still: Several days Becoming easily annoyed or irritable: Several days Feeling afraid as if something awful might happen: Several days Total Score: 11 HTN, HLD - on hydrochlorothiazide 25 mg daily, losartan 100 mg, ezetimibe 10 mg daily Cardiac ROS: denies chest pain, irregular heartbeat, heart racing Neuro ROS: denies near syncope, dizziness, lightheadedness. Denies new TIA/CVA symptoms Denies diffuse muscle aches or muscle cramps Hypothyroidism - on levothyroxine 150 mcg daily. Chronic migraines, without aura - sees neurology, Dr. Parker. On Quillipta, topiramate 200 mg twicedaily, amitriptyline 50 mg and as needed Zomig. Additionally has a history of occipital neuralgia Chronic cough with reactive airway disease and likely COPD, KAYLA - [place] is Dr. Quinteros at [place]. On trelegy ellipita and mucinex twice daily, albuterol as needed, tessalon three times daily, and montelukast. Supposed to be on CPAP but not using consistently as has some issues with mask leak Chronic back and knee issues - has yet to start PT as has been struggling with her migraines Current Outpatient Medications on File Prior to Visit Medication Sig Dispense Refill albuterol HFA (PROVENTIL HFA,VENTOLIN HFA,PROAIR HFA) 90 mcg/actuation inhaler Inhale 2 puffs 2 (two) times a day amitriptyline (ELAVIL) 50 mg tablet Take 1 tablet (50 mg total) by mouth nightly ascorbic acid, vitamin C, 250 mg tablet,chewable Take by mouth aspirin 81 mg enteric coated tablet Take [...] Take by mouth daily cholecalciferol (VITAMIN D-3) 25352 unit tablet Take 1 tablet (10,000 Units total) by mouth 4 (four) times a day chromium picolinate 1,000 mcg tablet Take by mouth cyanocobalamin (Vitamin B-12) 2,500 mcg tablet, sublingual empagliflozin (JARDIANCE) 10 mg tablet Take 1 tablet (10 mg total) by mouth every morning 90 tablet1 ezetimibe (ZETIA) 10 mg tablet Take 1 tablet (10 mg total) by mouth daily 90 tablet 4 folic acid (FOLVITE) 800 mcg tablet Take 1 tablet (800 mcg total) by mouth daily hydroCHLOROthiazide (HYDRODIURIL) 25 mg tablet Take 1 tablet by mouth once daily 90 tablet 0 ipratropium-albuteroL (DUO-NEB) 0.5-2.5 mg/3 mL nebulizer solution Take by nebulization every 12 (twelve) hours 160/4.5 levothyroxine (SYNTHROID) 150 mcg tablet TAKE 1 TABLET BY MOUTH ONCE DAILY IN THE MORNING BEFORE BREAKFAST 90 tablet 0 losartan (COZAAR) 100 mg tablet Take 1 tablet by mouth once daily 90 tablet 0 lutein-zeaxanthin 25-5 mg capsule Take by mouth Gummy lysine 1,000 mg tablet Take 1 tablet by mouth daily magnesium oxide 400 mg magnesium tablet Take 400 mg by mouth daily montelukast (SINGULAIR) 10 mg tablet Take 1 tablet (10 mg total) by mouth daily phytonadione, vit K1, (phytonadione, vitamin K1,) 100 mcg tablet Take 1 tablet (100 mcg total) by mouth 2 (two) times a day Qulipta 60 mg tablet Take 1 tablet by mouth daily sertraline (ZOLOFT) 100 mg tablet Take 1.5 tablets (150 mg total) by mouth daily 135 tablet 1 SUMAtriptan (IMITREX) 100 mg tablet Take 1 tablet (100 mg total) by mouth once as needed topiramate (TOPAMAX) 100 mg tablet Take 2 tablets (200 mg total) by mouth 2 (two) times a day Treleomaira Ellipta 200-62.5-25 mcg inhaler Inhale 1 puff daily TURMERIC ORAL Take 1,600 mg by mouth daily UNABLE TO FIND Take 1 each by mouth daily Med Name: [employer] [facility] vit D3-vit D-twrvhorru-ioox [id number] leva-por-ba-mg tablet Take 4 capsules by mouth daily vitamin E 400 unit capsule Take 1 capsule (400 Units total) by mouth daily zinc gluconate 50 mg tablet Take 1 tablet (50 mg total) by mouth daily ZOLMitriptan (ZOMIG) 5 mg tablet Take 1 tablet (5 mg total) by mouth once as needed for migraine No current facility-administered medications on file prior to visit. Allergies Allergen Reactions Crestor [Rosuvastatin] Other (See comments) Constipation. Refuses to try alternative statins Social History Tobacco Use Smoking status: Former Types: Cigarettes Smokeless tobacco: Never Substance and Sexual Activity Drug use: Not Currently Types: Marijuana Sexual activity: None Alcohol Use: Not on file OBJECTIVE: Vitals: 07/02/23 1052 BP: 128/86 Pulse: 81 Weight: 96.7 kg (213 lb 3.2 oz) Height: 172.7 cm (5' 8 ) Body mass index is 32.42 kg/m??. Appears: alert, well appearing, and in no distress Ears: normal TM's and external ear canals both ears Neck: supple, no significant adenopathy Lungs: clear to auscultation, no wheezes, rales, or rhonchi, no tachypnea, retractions, or cyanosis CV exam: regular rate and rhythm, normal S1 and S2, no murmurs Abdominal exam: non-tender, soft, nondistended, no rebound tenderness, and no guarding Psych - does not appear overly anxious or depressed. Patient was much more accepting of discussion in regards to the risk for chronic pancreatitis being exacerbated with use of diabetic medications like Ozempic or Mounjaro. ASSESSMENT & PLAN: Diagnoses and all orders for this visit: Other chronic pancreatitis (HCC) (K86.1) (Primary) Assessment & Plan: Insulin noted previously on CT chest abdomen [...] We will plan to send her to [facility] oenterology for more formal consult. Given chronic pancreatitis diagnosis she would not be a candidate for DM/weight loss medications like OzempJorge hernandez Mounjaro Orders: - Ambulatory referral to Gastroenterology; Future - Lipase; Future Hiatal hernia (K44.9) Assessment & Plan: Encouraged to avoid dietary triggers. Patient declined option to take a proton pump inhibitor. Refer to GI for opinion Orders: - Ambulatory referral to Gastroenterology; Future Gastroesophageal reflux disease without esophagitis (K21.9) Assessment & Plan: Chronic. Struggles. Patient declines PPI or alternative acid suppressors. Work on dietary modification. Given patient's uncontrolled GI issues she would not be a good candidate for a GLP 1 or G IP medication Orders: - Ambulatory referral to Gastroenterology; Future Chronic nausea (R11.0) - Ambulatory referral to Gastroenterology; Future - Hepatitis B Surface Antigen Blood; Future Generalized anxiety disorder (F41.1) Assessment & Plan: Chronic. Needs improvement. Continue sertraline as patient would like to see Psychiatry for more definitive evaluation and medication adjustment. Brief supportive counseling was provided Orders: - Ambulatory referral to Psychiatry; Future Severe episode of recurrent major depressive disorder, without psychotic features (HCC) (F33.2) Assessment & Plan: Chronic. Needs improvement. Brief supportive counseling provided. Continue sertraline. Patient referred to Psychiatry per her request. Patient was able to contract for safety. Greater than 5 minutes spent on assessment and discussion patient's mental health today Orders: - Ambulatory referral to Psychiatry; Future Essential hypertension (I10) Assessment & Plan: Chronic. Controlled. Continue losartan and other prescription blood pressure medication Type 2 diabetes mellitus with hyperlipidemia (HCC) (E11.69, E78.5) Assessment & Plan: Chronic. Well-controlled. Continue Jardiance. Patient is not a candidate for GI P/ GLP 1 medications due to history of chronic pancreatitis as well as her chronic uncontrolled GI issues. We discussedthese are relative contraindication for use of this class of medication. Patient expressed understanding. Orders: - Comprehensive metabolic panel; Future - Lipid panel; Future - CBC with auto differential; Future - TSH; Future - Albumin Creatinine Ratio, Urine; Future Acquired hypothyroidism (E03.9) Assessment & Plan: Patient has some symptoms of fatigue. Will check her thyroid level and adjust her levothyroxine based on results. Currently I suspect she is mostly euthyroid based on last TSH Orders: - TSH; Future - TSH; Future Statin intolerance (Z78.9) Assessment & Plan: Patient's history significant statin intolerance. 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 Patient has been statin intolerant. Continue ezetimibe. Due for updated cholesterol level to assess control. Likely would benefit from PCSK9 inhibitor but patient is not really interested inthese Lumbar spondylosis (M47.816) Assessment & Plan: Chronic. Still struggles with her pain. Has not started PT as previously referred. Encouraged her to start physical therapy. Monitor symptoms Spondylolisthesis, lumbar region (M43.16) Assessment & Plan: Chronic. Encouraged to start physical therapy as previously ordered KAYLA (obstructive sleep apnea) (G47.33) Assessment & Plan: Chronic. Intermittent compliance with CPAP. Continue care per pulmonology and sleep Medicine Migraine without aura and without status migrainosus, not intractable (G43.009) Assessment & Plan: Chronic intermittent migraines. Has had increased migraine frequency and severity recently. She is working with Neurology. They have been adjusting her controller medications. Continue Qulipta and amitriptyline. She has Zomig and possible sumatriptan for flares. Class 1 obesity due to excess calories with serious comorbidity and body mass index (BMI) of 32.0 to 32.9 in adult (E66.09, Z68.32) Assessment & Plan: Chronic. Suboptimally controlled. Counseled on healthy diet, exercise and weight loss Atherosclerosis of aorta (HCC) (I70.0) Assessment & Plan: Incidental on prior imaging. No signs of progression. Continue risk factor modification as indicates pt at higher risk of CAD/CVA. Continue zetia given statin intolerance Need for hepatitis B screening test (Z11.59) - Hepatitis B Surface Antigen Blood; Future Advised to call back directly if there are further questions, or if these symptoms fail to improve as anticipated or worsen, or any new concerns arise An After Visit Summary was printed and given to the patient. Follow up 4 months for AWV. Ifrah Clemente MD My total encounter time on 07/02/2023 was 45 minutes which was spent in the activities documented in the note. This includes time spent prior to the visit and after the visit in direct care of the patient. This time does not include time spent in any separately reportable services. documented in this encounter Miscellaneous Notes * Assessment & Plan Note - Ifrah Clemente MD - 07/09/2023 1:28 PM CDT Associated Problem(s): Atherosclerosis of aorta (HCC) Incidental on prior imaging. No signs of progression. Continue risk factor modification as indicates pt at higher risk of CAD/CVA. Continue zetia given statin intolerance * Assessment & Plan Note - Ifrah Clemente MD - 07/02/2023 2:46 PM CDT Associated Problem(s): Hiatal hernia Encouraged to avoid dietary triggers. Patient declined option to take a proton pump inhibitor. Refer to GI for opinion * Assessment & Plan Note - Ifrah Clemente MD - 07/02/2023 2:46 PM CDT Associated Problem(s): Other chronic pancreatitis (HCC) Insulin noted previously on CT chest abdomen [...] We will plan to send her to [facility] oenterology for more formal consult. Given chronic pancreatitis diagnosis she would not be a candidate for DM/weight loss medications like Jorge Rae Mounjaro * Assessment & Plan Note - Ifrah Clemente MD - 07/02/2023 2:45 PM CDT Associated Problem(s): Class 1 obesity due to excess calories with serious comorbidity and body mass index (BMI) of 31.0 to 31.9 in adult Chronic. Suboptimally controlled. Counseled on healthy diet, exercise and weight loss * Assessment & Plan Note - Ifrah Clemente MD - 07/02/2023 2:45 PM CDT Associated Problem(s): Migraine without aura and without status migrainosus, not intractable Chronic intermittent migraines. Has had increased migraine frequency and severity recently. She is working with Neurology. They have been adjusting her controller medications. Continue Qulipta and amitriptyline. She has Zomig and possible sumatriptan for flares. * Assessment & Plan Note - Ifrah Clemente MD - 07/02/2023 2:41 PM CDT Associated Problem(s): KAYLA (obstructive sleep apnea) Chronic. Intermittent compliance with CPAP. Continue care per pulmonology and sleep Medicine * Assessment & Plan Note - Ifrah Clemente MD - 07/02/2023 2:40 PM CDT Associated Problem(s): Statin intolerance Patient's history significant statin intolerance. Continue ezetimibe * Assessment & Plan Note - Ifrah Clemente MD - 07/02/2023 2:40 PM CDT Associated Problem(s): Type 2 diabetes mellitus with hyperlipidemia (HCC) Chronic. Well-controlled. Continue Jardiance. Patient is not a candidate for GI P/ GLP 1 medications due to history of chronic pancreatitis as well as her chronic uncontrolled GI issues. We discussedthese are relative contraindication for use of this class of medication. Patient expressed understanding. * Assessment & Plan Note - Ifrah Clemnete MD - 07/02/2023 2:39 PM CDT Associated Problem(s): Familial multiple lipoprotein-type hyperlipidemia Chronic. Patient has been statin intolerant. Continue ezetimibe. Due for updated cholesterol level to assess control. Likely would benefit from PCSK9 inhibitor but patient is not really interested inthese * Assessment & Plan Note - Ifrah Clemente MD - 07/02/2023 2:39 PM CDT Associated Problem(s): Gastroesophageal reflux disease without esophagitis Chronic. Struggles. Patient declines PPI or alternative acid suppressors. Work on dietary modification. Given patient's uncontrolled GI issues she would not be a good candidate for a GLP 1 or G IP medication * Assessment & Plan Note - Ifrah Clemente MD - 07/02/2023 2:39 PM CDT Associated Problem(s): Acquired hypothyroidism Patient has some symptoms of fatigue. Will check her thyroid level and adjust her levothyroxine based on results. Currently I suspect she is mostly euthyroid based on last TSH * Assessment & Plan Note - Ifrah Clemente MD - 07/02/2023 2:38 PM CDT Associated Problem(s): Generalized anxiety disorder Chronic. Needs improvement. Continue sertraline as patient would like to see Psychiatry for more definitive evaluation and medication adjustment. Brief supportive counseling was provided * Assessment & Plan Note - Ifrah Clemente MD - 07/02/2023 2:38 PM CDT Associated Problem(s): Severe episode of recurrent major depressive disorder, without psychotic features (HCC) Chronic. Needs improvement. Brief supportive counseling provided. Continue sertraline. Patient referred to Psychiatry per her request. Patient was able to contract for safety. Greater than 5 minutes spent on assessment and discussion patient's mental health today * Assessment & Plan Note - Ifrah Clemente MD - 07/02/2023 2:37 PM CDT Associated Problem(s): Essential hypertension Chronic. Controlled. Continue losartan and other prescription blood pressure medication * Assessment & Plan Note - Ifrah Clemente MD - 07/02/2023 2:37 PM CDT Associated Problem(s): Spondylolisthesis, lumbar region Chronic. Encouraged to start physical therapy as previously ordered * Assessment & Plan Note - Ifrah Clemente MD - 07/02/2023 2:37 PM CDT Associated Problem(s): Lumbar spondylosis Chronic. Still struggles with her pain. Has not started PT as previously referred. Encouraged her to start physical therapy. Monitor symptoms * Addendum Note - Ifrah Clemente MD - 07/02/2023 11:00 AM CDTAddended by: IFRAH CLEMENTE on: 07/06/2023 08:03 PM Modules accepted: Orders documented in this encounter Plan of Treatment Scheduled Referrals Name Type Priority Associated Diagnoses Order Schedule Ambulatory referral to Gastroenterology Outpatient Referral Routine Hiatal hernia Other chronic pancreatitis (HCC) Gastroesophageal reflux disease without esophagitis Chronic nausea Expected: 07/16/2023 (Approximate), Expires: 07/01/2024 Ambulatory referral to Psychiatry Outpatient Referral Routine Generalized anxiety disorder Severe episode of recurrent major depressive disorder, without psychotic features (HCC) Expected: 07/16/2023 (Approximate), Expires: 07/01/2024 documented as of this encounter Results * TSH (11/17/2023 3:58 PM CDT) Pathologist [facility] Thyroid Stimulating Hormone 2.57 0.30 - 4.20 mcIUnit/mL Blood 11/17/2023 3:58 PM CDT 11/17/2023 9:26 PM CDT Ifrah Clemente MD LAB BLOOD ORDERABLES F inal Result Performing Organization Address City/[facility]/ZIP Co de Phone Number [facility] [phone] [employer] [place], [place] [id number] * Hepatitis B Surface Antigen Blood (11/17/2023 3:58 PM CDT) Pathologist [facility] HepBsAg Nonreactive Nonreactive Blood 11/17/2023 3:58 PM CDT 11/17/2023 9:26 PM CDT Ifrah Clemente MD LAB MICROBIOLOGY - GEN ERAL ORDERABLES Final Result Performing Organization Address [facility] Co de Phone Number JOAQU[facility] [phone] [address] [place] [place] [address] * Lipase (07/02/2023 12:05 PM CDT) Pathologist [facility] Lipase 33 10 - 99 Units/L Blood 07/02/2023 12:0 5 PM CDT 07/02/2023 9:30 PM CDT Ifrah Clemente MD LAB BLOOD ORDERABLES F inal Result Performing Organization Address [facility] Co de Phone Number [facility] [phone] [address] Department [place] [address] * Albumin Creatinine Ratio, Urine (07/02/2023 12:05 PM CDT) Albumin Ur <12.0 mg/L Comment: Interpretive Data No reference range established. Current interpretive data was last revised 2018. Creatinine Ur 190.0 mg/dL [facility] Comment: Interpretive Data No reference range established. Current interpretive data was last revised 2018. Albumin Creatinine Ratio, Ur <6 1 - 29 mg/g [facility] Urine 07/02/2023 12:0 5 PM CDT 07/02/2023 9:31 PM CDT Ifrah Clemente MD LAB URINE ORDERABLES F inal Result Performing Organization Address [facility] Phone Number [facility] [phone] [place] [address] * (ABNORMAL) TSH (07/02/2023 12:05 PM CDT) Pathologist [facility] Thyroid Stimulating Hormone 9.01(H) 0.30 - 4.20 mcIUnit/mL Blood 07/02/2023 12:0 5 PM CDT 07/02/2023 9:30 PM CDT Ifrah Clemente MD LAB BLOOD ORDERABLES F inal Result Performing Organization Address [facility] Co de Phone Number [facility] [phone] [address] of [employer] [place] [address] * (ABNORMAL) CBC with auto differential (07/02/2023 12:05 PM CDT) Pathologist [facility] WBC 5.7 3.8 - 9.9 K/cumm Hgb 15.5 11.9 - 15.5 g/dL [facility] Hct 48.9(H) 35.6 - 45.5 % [facility] Plt 322 150 - 400 K/cumm [facility] MPV 9.5 9.1 - 12.3 fL [facility] RBC 5.07 3.90 - 5.20 M/cumm [facility] MCV 96.4 81.3 - 96.4 fL [facility] MCH 30.6 27.1 - 33.3 pg [facility] MCHC 31.7(L) 32.3 - 35.7 g/dL [facility] RDW CV 14.0 11.1 - 14.9 % [facility] RDW SD 49.5(H) 35.7 - 48.1 fL [facility] NRBC abs 0.00 0.00 - 0.01 K/cumm [facility] Blood 07/02/2023 12:0 5 PM CDT 07/02/2023 9:30 PM CDT us Ifrah Clemente MD LAB BLOOD ORDERABLES F inal Result [facility] [id number] [address] Department of Laboratories [place], [place] [id number] * (ABNORMAL) Lipid panel (07/02/2023 12:05 PM CDT) Pathologist [facility] Cholesterol 226(H) 30 - 199 mg/dL Comment: [...] on 2017. Triglycerides 140 <=149 mg/dL [facility] Comment: Interpretive Data Ages < [...] revised on 2017. Non-HDL Cholesterol 173 mg/dL [facility] Comment: Interpretive Data Ages [...] revised on 2017. Chol/HDL ratio 4 [facility] Blood 07/02/2023 12:0 5 PM CDT 07/02/2023 9:30 PM CDT us Ifrah Clemente MD LAB BLOOD ORDERABLES F inal Result [facility] [id number] [address] Department [place] [address] * Comprehensive metabolic panel (07/02/2023 12:05 PM CDT) Sodium 140 135 - 145 mmol/L Potassium, pl 4.1 3.3 - 4.9 mmol/L [facility] Chloride 102 97 - 110 mmol/L [facility] CO2 26 22 - 32 mmol/L [facility] Anion gap 12 2 - 15 mmol/L [facility] BUN 25 6 - 25 mg/dL [facility] Creatinine 1.10 0.60 - 1.10 mg/dL [facility] Glucose 118 70 - 199 mg/dL [facility] Comment: Interpretive Data Fasting glucose >/= 126 [...] PM CDT 07/02/2023 9:30 PM CDT Ifrah Clemente MD LAB BLOOD ORDERABLES F inal Result [facility] [id number] [address] Department [place] [address] documented in this encounter Visit Diagnoses Diagnosis Other chronic pancreatitis (HCC)- Primary Hiatal hernia Diaphragmatic hernia without mention of obstruction or gangrene Gastroesophageal reflux disease without esophagitis Esophageal reflux Chronic nausea Nausea alone Generalized anxiety disorder Severe episode of recurrent major depressive disorder, without psychotic features (HCC) Essential hypertension Unspecified essential hypertension Type 2 diabetes mellitus with hyperlipidemia (HCC) Acquired hypothyroidism Unspecified hypothyroidism Statin intolerance Familial multiple lipoprotein-type hyperlipidemia Other and unspecified hyperlipidemia Lumbar spondylosis Lumbosacral spondylosis without myelopathy Spondylolisthesis, lumbar region KAYLA (obstructive sleep apnea) Obstructive sleep apnea (adult) (pediatric) Migraine without aura and without status migrainosus, not intractable Class 1 obesity due to excess calories with serious comorbidity and body mass index (BMI) of 32.0 to 32.9 in adult Atherosclerosis of aorta (HCC) Atherosclerosis of aorta Need for hepatitis B screening test documented in this encounter Care Teams Cosmetology Educator Relationship Specialty Start Date End Date Ifrah Clemente MD PCP - General Family Practice 09/21/22 Unknown, Notinfile 01/02/22 documented as of this encounter
--- OUTSIDE RECORDS SUMMARY | 2024-03-15 15:01 | XMS_ITS | Encounter Summary ---
Author Organization [facility] Healthcare Address [address] [place] [address] Care Team Providers Care Courtesy Driver Name Role Phone Ifrah Clemente MD Primary Care Provider Unknown, Notinfile Unavailable Unavailable Reason for Visit * Reason Onset Date Comments Medication Issue 03/25/2023 Encounter Details Date Type Department Care Team (Late st Contact Info) Description 03/25/[address] 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 R VEHICLE COMPLIANCE ANALYST * Telephone Encounter - Ifrah Clemente MD - 03/26/2023 10:47 AM MOTOR VEHICLE COMPLIANCE ANALYST Jardiance 10 mg daily in the morning sent in. Patient needs to make sure she drinks a least 8 glasses of fluid a day. The Jardiance can make her pee a little bit more frequently and if she gets dehydrated on it it can rarely make the kidney on happy. However it actually has been shown to help improve kidney function in diabetics Requested Prescriptions Signed Prescriptions Disp Refills empagliflozin (JARDIANCE) 10 mg tablet 90 tablet 1 Sig: Take 1 tablet (10 mg total) by mouth every morning Authorizing Provider: IFRAH CLEMENTE (Rx may require prior auth to get approved. If needed, will have to indicate pt tried and failed totolerate metformin) If pt is not following diet and exercise guidelines (light activity is actually recommended with lung disease), then she would not be a candidate for use of any dedicated weight loss drugs per current prescribing guidelines R VEHICLE COMPLIANCE ANALYST * Telephone Encounter - Pallavi Tripp ATC - 03/26/2023 10:[address] results found and mailed per pt request.. Placed in EDW pick-up bin. R VEHICLE COMPLIANCE ANALYST * Telephone Encounter - Pallavi Tripp ATC - 03/26/2023 10:23 AM CST I called the pt and informed her of the below information. Pt stated frustration with the diagnosisof pancreatitis. Pt demanded to be shown where this diagnosis was obtained. I informed her that I would obtain this and mail it to her so she can see this. She stated that she will not be re-filling her metformin. After discussion with Dr. Clemente, it was ok'd to send in Jardiance. Pt asked for a sooner appointment, but per Dr. Clemente a same day slot was not acceptable for this issue. No sooner appointments available than her already scheduled f/u. Pt informed me that she was told by herpulmologist to not do any exercise and she has a hard time following diets d/t low will power andhypothyroidism. I informed her to try her best to follow the instructions from her physicians and if she has any questions or concerns to contact the office. Understanding with POC was met and call ended. R VEHICLE COMPLIANCE ANALYST * Telephone Encounter - Ifrah Clemente MD - 03/25/2023 4:40 PM MOTOR VEHICLE COMPLIANCE ANALYST Patient currently is not a candidate for GLP 1 medications like Ozempic, Trulicity, Victoza or the newer drug Mounjaro for control her diabetes or weight loss given she has a history of pancreatitis.These medications are not to use be used in patients with a history of pancreatitis given they are associated with increased risk for pancreatitis. She should continue with the metformin if tolerating it for the diabetes. It can have slight weightbenefits but is not as strong. When we see her for her next diabetic visit if not tolerating the metformin or not see eat appropriate control we can always consider looking at starting something likeJardiance or face Farxiga. These alternative diabetic meds that sometimes can have weight loss benefits though are not as strong in terms of weight loss as the injectable medications (which she is not a candidate for ) Additionally, Medicare does not cover any weight loss drugs being used for pure weight loss. Given this she would not be a candidate for the pure weight loss medications currently. She needs to continue working on healthy diet, exercise and weight loss strategies. She needs to make sure she has getting a least 2-1/2 hours of exercise a week at minimum. Ultimately if trying to lose weight she needs to target eventually trying to get closer to 5 hours of exercise a week R VEHICLE COMPLIANCE ANALYST R VEHICLE COMPLIANCE ANALYST * Telephone Encounter - AngelicaDinora - 03/25/2023 4:11 PM CST Patient is requesting something for weight loss. She had mentioned a shot. She states the diabetes pill is not working and that the only reason she had lost weight previously is because of a different medicine. She is now gaining weight back and states she has gained 5 lbs since last visit. Please advise. She states the weight is affecting her back and knees and is using knee braces. R VEHICLE COMPLIANCE ANALYST documented in this encounter Plan of Treatment Not on file documented as of this encounter Visit Diagnoses Diagnosis Type 2 diabetes mellitus without complication, without long-term current use of insulin (CMS/HCC) ([facility])- Primary documented in this encounter Discontinued Medications Medication Sig Discontinue Reason Start Date End Da te metFORMIN XR (GLUCOPHAGE XR) 500 mg 24 hr tabletIndications:Type 2 diabetes mellitus without complication, without long-term current use of insulin (CMS/HCC) ([facility]) Take 1 tablet (500 mg total) by mouth daily with breakfast Alternate therapy 12/30/2022 03/26/2023 documented as of this encounter Care Teams Courtesy Driver Relationship Specialty Start Date End Date Ifrah Clemente MD PCP - General Family Practice 09/21/22 Unknown, Notinfile 01/02/22 documented as of this encounter
--- OUTSIDE RECORDS SUMMARY | 2024-03-15 15:01 | XMS_ITS | Encounter Summary ---
Author Organization [facility] Address [address] [address] Care Team Providers Care Crusher And Binder Operator Name Role Phone Ifrah Monroe MD Primary Care Provider Unknown, Notinfile Unavailable Unavailable Reason for Visit * Reason Onset Date Comments Recommendation Request 10/27/2022 Encounter Details Date Type Department Care Team (Late st Contact Info) Description 10/27/2022 Telephone [facility] Primary Care at [address] [address] Ifrah Monroe MD [address] [place] [address] [address] [place] [address] Recommendation Request Social History Tobacco Use Types Packs/Day Years Used Date Smoking Tobacco: Former Cigarettes Smokeless Tobacco: Never PHQ-2 Answer Date Recorded PHQ-2 Total Score (If total score is 3 or more points, staff should administer the PHQ-9) 0 09/21/2022 Comments No Sex and Gender Information Value Date Recorded Sex Assigned at Not on file Legal Sex Female 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 Patient was notified and given their number. * Telephone Encounter - Ifrah Monroe MD - 10/27/2022 2:05 PM CDT Referral placed to Dermatology, Dr. Amaro with skin care [facility]. You can fax a referral over to them and give patient has office information * Telephone Encounter - Georgia Tafoya - 10/27/2022 11:04 AM CDT Recommendation Request Note: This request is for a specialty recommendation, not an insurance referral. Specialty: Yarn Dyer Why does the patient want to go to this specialist? Patient is having hair loss and she believes itis due to the steroids in the medications that she is taking. Caller's Callback #: [phone] Additional Comments/Concerns: N/A Does message need to be routed? Yes-Action Needed documented in this encounter Plan of Treatment Not on file documented as of this encounter Visit Diagnoses Diagnosis Hair loss- Primary Unspecified alopecia documented in this encounter Care Teams Crusher And Binder Operator Relationship Specialty Start Date End Date Ifrah Monroe MD PCP - General Family Practice 09/21/22 Unknown, Notinfile 01/02/22 documented as of this encounter
--- OUTSIDE RECORDS SUMMARY | 2024-03-15 15:01 | XMS_ITS | Encounter Summary ---
Author Organization [facility] Healthcare Address [address] [place] [address] Care Team Providers Care Service Liaison Representative Name Role Phone Ifrah Calvo MD Primary Care Provider Unknown, Notinfile Unavailable Unavailable Reason for Visit * Reason Comments Diabetes Patient is here for a follow up of her DM and BP. Patient reports her hair rooting machine operator has diagnosed her with RAD and started on new medication. She states the new medication has been helping her symptoms. Encounter Details Date Type Department Care Team (Latest Contact Info) Description 12/30/2022 1:00 PM CDT Office Visit 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, subsequent encounter; Left hand pain; Migraine without aura and without status migrainosus, [...] on file 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 Gender Identity Not on file Sexual Orientation Not on file documented as of this encounter Last Filed Vital Signs Vital Sign Reading Time Taken Comments Blood Pressure 114/80 12/30/2022 1:09 PM CDT Pulse 71 12/30/2022 1:09 PM CDT Temperature - - Respiratory Rate - - Oxygen Saturation 96% 12/30/2022 1:09 PM CDT Inhaled Oxygen Concentration - - Weight 95.7 kg (211 lb) 12/30/2022 1:09 PM CDT Height 172.7 cm (5' 8 ) 12/30/2022 1:09 PM CDT Body Mass Index 32.08 12/30/2022 1:09 PM CDT documented in this encounter Patient Instructions * Patient Instructions* Ifrah Calvo MD - 12/30/2022 1:00 PM CDT Referral to hand specialist for left hand middle finger Phone Address [phone] [facility] [address] [facility], [address] [address] Continue other medications Continue care per lung specialist for breathing and sleep apnea [facility] Your Diabetes Follow a diabetic diet with healthy meals that are low salt, low fat, high fiber. For more information on a diabetic diet, please go to the [place] [employer] website at www.diabetes.org and select [...] minutes if trying to lose weight) The [employer] recommends all adults [...] a healthy weight. Body mass index is 32.08 kg/m??. If your BMI (a ratio of your weight to your height) is over 25, it is recommended that you try to exercise and eat healthier in an effort to lose a few pounds Continue current medications: Yes Please call office during routine office hours if any questions or concerns. See me in 4 months documented in this encounter Ordered Prescriptions Prescription Sig Dispense Quantity Refills Last Filled Start Date End Date metFORMIN XR (GLUCOPHAGE XR) 500 mg 24 hr tabletIndications: Type 2 diabetes mellitus without complication, without long-term current use of insulin ([facility]) ([facility]) Take 1 tablet (500 mg total) by mouth daily with breakfast 90 tablet 1 12/30/2022 3 documented in this encounter Progress Notes * Ifrah Calvo MD - 12/30/2022 1:00 PM CDT SUBJECTIVE: Angelica Cowan is a 67 y.o. female here for follow up visit HTN: Home BP monitoring is not done. Cardiovascular ROS: no chest pain. Neurological ROS: Denies lightheadedness, near syncope, dizziness and Denies new TIA/CVA symptoms Current Cardiac Medications: losartan 100 mg, HCTZ 25 mg daily Elevated A1c borderline for new diagnosis of diabetes: Previously started on metformin. Was complaining of some nausea and diarrhea last visit but wanted to try it again before discontinuing for potential intolerance. On metformin 500 mg daily. Patient wonders about potentially doing an injection for weight loss like Ozempic to help the diabetes Prior Hx of pancreatitis based on CT results from her chest so not a candidate GLP-1. Following DM diet: watches some Does pt exercise: does not exercise Diabetic ROS: no polyuria or polydipsia, no chest pain, dyspnea or TIA's, no numbness, tingling or pain in extremities, no worsening lower extremity edema, no new foot ulcers. Has chronic anxiety and depression - pt on sertraline. Hx of personal traumas when younger Struggles with chronic depression. Reports mood is stable Hypothyroidism - on levothyroxine 150 mcg daily. Denies missed doses. Takes on empty stomach Chronic cough with a degree of reactive airway disease and probable COPD, reports pulm called it resistive airway disease. Following with pulmonology at [facility]. On trelegy ellipita and mucinex twice daily, albuterol as needed, tessalon three times daily, and montelukast. Uses benadryl atnight. Reports pulm wanted her on oxygen KAYLA. Has CPAP but reports issues with compliance due to her cough and drainage Reports supposed to be on oxygen but not consistently using Left hand chronic pain near the 3rd MCP after injury in May of 2022 but not evaluate until September appointment. She is been in hand therapy since last visit. She is improving some with therapy per notes but concern for possible sagittal band rupture was noted. Pt reports does not like therapist as they did not do enough hands on treatment and only gave her exercises to do. Does not feel therapy helped. Patient is not really interested in surgery but is struggling with pain and discomfort. She notes that the tendon does nap frequently and can get caught at times. Isolate symptoms to the 3rd MCPdorsally. Follows with neuro for her migraines. On TCa and topamax. Reports she has to reach her neurologist to get a refill on her TCA issues recently run out Current Outpatient Medications on File Prior to Visit Medication Sig Dispense Refill Aimovig Autoinjector 70 mg/mL auto-injector subcutaneous injection Inject under the skin every 30 (thirty) days albuterol HFA (PROVENTIL HFA,VENTOLIN HFA,PROAIR HFA) 90 mcg/actuation inhaler Inhale 2 puffs 2 (two) times a day amitriptyline (ELAVIL) 50 mg tablet Take 1 tablet (50 mg total) by mouth nightly aspirin 81 [...] 1 drop 2 (two) times a day cholecalciferol (VITAMIN D-3) 50047 unit tablet Take 1 tablet (10,000 Units total) by mouth 4 (four) times a day ezetimibe (ZETIA) 10 mg tablet Take 1 tablet (10 mg total) by mouth daily 90 tablet 4 folic acid (FOLVITE) 800 mcg tablet Take 1 tablet (800 mcg total) by mouth daily hydroCHLOROthiazide (HYDRODIURIL) 25 mg tablet Take 1 tablet (25 mg total) by mouth daily 90 tablet1 ipratropium-albuteroL (DUO-NEB) 0.5-2.5 mg/3 mL nebulizer solution Take by nebulization every 12 (twelve) hours 160/4.5 levothyroxine (SYNTHROID) 150 mcg tablet TAKE 1 TABLET BY MOUTH ONCE DAILY IN THE NEON SIGN MECHANIC BEFORE BREAKFAST 90 tablet 1 losartan (COZAAR) 100 mg tablet Take 1 tablet (100 mg total) by mouth daily 90 tablet 1 lysine 1,000 mg tablet Take 1 tablet by mouth daily magnesium oxide 400 mg magnesium tablet Take 400 mg by mouth daily montelukast (SINGULAIR) 10 mg tablet Take 1 tablet (10 mg total) by mouth daily phytonadione, vit K1, (phytonadione, vitamin K1,) 100 mcg tablet Take 1 tablet (100 mcg total) by mouth 2 (two) times a day sertraline (ZOLOFT) 100 mg tablet Take 1 tablet (100 mg total) by mouth daily 90 tablet 1 SUMAtriptan (IMITREX) 100 mg tablet Take 1 tablet (100 mg total) by mouth once as needed topiramate (TOPAMAX) 100 mg tablet Take 2 tablets (200 mg total) by mouth 2 (two) times a day Trelegy Ellipta 200-62.5-25 mcg inhaler Inhale 1 puff daily TURMERIC ORAL Take 1,600 mg by mouth daily UNABLE TO FIND Take 1 each by mouth daily Med Name: BriefMe vitamin E 400 unit capsule Take 1 capsule (400 Units total) by mouth daily ZOLMitriptan (ZOMIG) 5 mg tablet Take 1 tablet (5 mg total) by mouth once as needed for migraine [DISCONTINUED] budesonide-formoteroL (SYMBICORT) 160-4.5 mcg/actuation inhaler Inhale 2 puffs 2 (two) times a day [DISCONTINUED] metFORMIN XR (GLUCOPHAGE XR) 500 mg 24 hr tablet Take 1 tablet (500 mg total) by mouth daily with breakfast 90 tablet 0 No current facility-administered medications on file prior to visit. Allergies Allergen Reactions Crestor [Rosuvastatin] Other (See comments) Constipation. Refuses to try alternative statins Social History Tobacco Use Smoking status: Former Types: Cigarettes Smokeless tobacco: Never Substance and Sexual Activity Drug use: Not Currently Types: Marijuana Sexual activity: None Alcohol Use: Not on file OBJECTIVE: Vitals: 12/30/22 1309 BP: 114/80 BP Location: Left arm Patient Position: Sitting Pulse: 71 SpO2: 96% Weight: 95.7 kg (211 lb) Height: 172.7 cm (5' 8 ) Body mass index is 32.08 kg/m??. Appears: alert, well appearing, and in no distress Ears: normal TM's and external ear canals both ears Neck: supple, no significant adenopathy Lungs: clear to auscultation, no wheezes, rales, or rhonchi, no tachypnea, retractions, or cyanosis CV exam: regular rate and rhythm, normal S1 and S2, no murmurs Left hand - some instability to tendon over 3rd MCP where deviates to ulnar aspect during motion ASSESSMENT & PLAN: Diagnoses and all orders for this visit: Type 2 diabetes mellitus without complication, without long-term current use of insulin ([facility]) ([facility]) (E11.9) (Primary) Comments: Diabetes controlled with metformin. Continue. Encouraged healthy diet, exercise, continued weight loss Orders: - POCT hemoglobin A1c - metFORMIN XR (GLUCOPHAGE XR) 500 mg 24 hr tablet; Take 1 tablet (500 mg total) by mouth daily with breakfast Essential hypertension (I10) Comments: Chronic. Controlled. Continue prescription medication Assessment & Plan: Chronic. Controlled. Continue concurred prescription medication. Encouraged healthy diet, exercise,weight loss Pure hypercholesterolemia (E78.00) Comments: On Zetia. Tolerating so far. Refuses to try alternative sounds given constipation with Crestor in the past Assessment & Plan: Chronic. Suboptimally controlled on last labs. Continue Zetia Severe episode of recurrent major depressive disorder, without psychotic features ([facility]) (F33.2) Comments: Mood stable. Monitor Acquired hypothyroidism (E03.9) Comments: Relatively euthyroid. Continue levothyroxine Moderate persistent reactive airway disease without complication (J45.40) Comments: Struggling with respiratory issues. 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 Failed recent trial of stan taping and hand therapy. We will refer to hand specialist for their opinion Orders: - Ambulatory referral to Plastic Surgery; Future Left hand pain (M79.642) - Ambulatory referral to Plastic Surgery; Future Migraine without aura and without status migrainosus, not intractable (G43.009) Comments: Follows with Neurology. Needs a refill on her TCA from them. Still on topiramate Class 1 obesity due to excess calories with serious comorbidity and body mass index (BMI) of 32.0 to 32.9 in adult (E66.09, Z68.32) Comments: Encouraged healthy diet, exercise, weight loss Advised to call back directly if there are further questions, or if these symptoms fail to improve as anticipated or worsen, or any new concerns arise An After Visit Summary was printed and given to the patient. Follow up 4 months. Ifrah Calvo MD documented in this encounter Miscellaneous Notes * Assessment & Plan Note - Ifrah Calvo MD - 12/30/2022 1:17 PM CDT Associated Problem(s): Pure hypercholesterolemia (Resolved 05/03/2023) Chronic. Suboptimally controlled on last labs. Continue Zetia * Assessment & Plan Note - Ifrah Calvo MD - 12/30/2022 1:17 PM CDT Associated Problem(s): Essential hypertension Chronic. Controlled. Continue concurred prescription medication. Encouraged healthy diet, exercise,weight loss documented in this encounter Plan of Treatment Not on file documented as of this encounter Procedures Procedure Name Priority Date/Time Associated Diagnosis Comments POCT HEMOGLOBIN A1C Routine 12/30/2022 1 :20 PM CDT Type 2 diabetes mellitus without complication, without long-term current use of insulin ([facility]) ([facility]) documented in this encounter Results * POCT hemoglobin A1c (12/30/2022 1:20 PM CDT) Hemoglobin A1C, POC 6.1 % Blood 12/30/2022 1:20 PM CDT Ifrah Calvo MD POINT OF CARE TEST ORD ERABLES Final Result documented in this encounter Visit Diagnoses Diagnosis Type 2 diabetes mellitus without complication, without long-term current use of insulin ([facility]) ([facility])- Primary Essential hypertension Unspecified essential hypertension Pure hypercholesterolemia Severe episode of recurrent major depressive disorder, without psychotic features ([facility]) Acquired hypothyroidism Unspecified hypothyroidism Moderate persistent reactive airway disease without complication 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, subsequent encounter Left hand pain Pain in soft tissues of limb Migraine without aura and without status migrainosus, not intractable Class 1 obesity due to excess calories with serious comorbidity and body mass index (BMI) of 32.0 to 32.9 in adult documented in this encounter Discontinued Medications Medication Sig Discontinue Reason Start Date End Da te budesonide-formoteroL (SYMBICORT) 160-4.5 mcg/actuation inhaler Inhale 2 puffs 2 (two) times a day Alternate therapy 08/17/2022 12/30/2022 metFORMIN XR (GLUCOPHAGE XR) 500 mg 24 hr tablet Take 1 tablet (500 mg total) by mouth daily with breakfast Reorder 09/28/2022 12/30/2022 documented as of this encounter Historical Medications * This list may reflect changes made after this encounter. SUMAtriptan (IMITREX) 100 mg tablet Take 1 tablet (100 mg total) by mouth once as needed 11/24/2022 benzonatate (TESSALON) 200 mg capsule Take 1 capsule (200 mg total) by mouth 3 (three) times a day 12/18/2022 montelukast (SINGULAIR) 10 mg tablet Take 1 tablet (10 mg total) by mouth daily 12/24/2022 Trelegy Ellipta 200-62.5-25 mcg inhaler Inhale 1 puff daily 12/22/2022 added in this encounter Care Teams Service Liaison Representative Relationship Specialty Start Date End Date Ifrah Calvo MD PCP - General Family Practice 09/21/22 Unknown, Notinfile 01/02/22 documented as of this encounter
--- OUTSIDE RECORDS SUMMARY | 2024-03-15 15:01 | XMS_ITS | Encounter Summary ---
Author Organization [facility] Address [address] [address] Care Team Providers Care Dynamometer Tuner Name Role Phone Ifrah Monroe MD Primary Care Provider Unknown, Notinfile Unavailable Unavailable Reason for Visit * Diagnostic Imaging (Routine) - Closed Specialty Diagnoses / Procedures Referred By Contac t Referred To Contact Diagnoses Left hand pain Procedures XR Hand Left 3 or More Views Ifrah Monroe MD Phone: tel: fax: [facility] Referral ID Status Reason Start Date Expiration Date Visits Re quested Visits Authorized [id number] Closed 10/09/2022 11/08/2023 1 1 Encounter Details Date Type Department Care Team (Late st Contact Info) Description 10/23/2022 3:15 PM CDT Ancillary Procedure [facility] Imaging at [address] [address] Left hand pain Social History Tobacco Use Types Packs/Day Years Used Date Smoking Tobacco: Former Cigarettes Smokeless Tobacco: Never PHQ-2 Answer Date Recorded PHQ-2 Total Score (If total score is 3 or more points, staff should administer the PHQ-9) 0 09/21/2022 Comments No Sex and Gender Information Value Date Recorded Sex Assigned at Not on file 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 Gender Identity Not on file Sexual Orientation Not on file documented as of this encounter Plan of Treatment Not on file documented as of this encounter Procedures Procedure Name Priority Date/Time Associated Diagnosis Comments XR HAND LEFT 3 OR MORE VIEWS Schedule Routine, Read Routine (OP Routine) 10/23/2022 3:16 PM CDT Left hand pain documented in this encounter Results * XR Hand Left 3 or More Views (10/23/2022 3:16 PM CDT) Anatomical Region Laterality Modality Upper Extremities, Hand Left Digital Radiography 10/26/2022 10:0 3 AM CDT Narrative 10/26/2022 10:05 AM CDT EXAM DESCRIPTION: XR HAND LEFT 3 OR MORE VIEWS REASON FOR STUDY: Pain; 3rd MCP pain since May after falling. ? TECHNIQUE: 3 ??radiographic view(s) of the ??left hand . COMPARISON: No prior FINDINGS: Normal mineralization. ??No acute fracture or dislocation. Moderate osteoarthritis 1st carpometacarpal joint. ??Mild of the 1st MCP joint and interphalangeal joint of the thumb. ??Zcab-bs-yvndolid osteoarthritis DIP joint 3rd finger. ??Minimal change of the interphalangeal joints of the hand otherwise. ??Soft tissues are unremarkable. 3rd MCP joint demonstrates no focal abnormality. IMPRESSION: No acute fracture. Nlra-aq-owseneci osteoarthritis as above. THIS IS AN ELECTRONICALLY VERIFIED FINAL REPORT 10/26/2022 10:05 AM - Electronically signed by ??Marcelino MILLS D: ??10/26/2022 10:05 AM T: Report ID: [id number] Reading Location: ??[id number] Procedure Note Marcelino Jimenez MD - 10/26/2022 EXAM DESCRIPTION: XR HAND LEFT 3 OR MORE VIEWS REASON FOR STUDY: Pain; 3rd MCP pain since May after falling. TECHNIQUE: 3 radiographic view(s) of the left hand . COMPARISON: No prior FINDINGS: Normal mineralization. No acute fracture or dislocation. Moderate osteoarthritis 1st carpometacarpal joint. Mild of the 1st MCPjoint and interphalangeal joint of the thumb. Jfpp-ei-ufhshslt osteoarthritisDIP joint 3rd finger. Minimal change of the interphalangeal joints of thehand otherwise. Soft tissues are unremarkable. 3rd MCP joint demonstrates no focal abnormality. IMPRESSION: No acute fracture. Ogiv-ph-zgcnsseh osteoarthritis as above. THIS IS AN ELECTRONICALLY VERIFIED FINAL REPORT 10/26/2022 10:05 AM - Electronically signed by Marcelino Jimenez M.D. MJ T: Report ID: [id number] Reading Location: [id number] us Ifrah Monroe MD IMG XR PROCEDURES Consuelo l Result documented in this encounter Visit Diagnoses Diagnosis Left hand pain Pain in soft tissues of limb documented in this encounter Care Teams Dynamometer Tuner Relationship Specialty Start Date End Date Ifrah Monroe MD PCP - General Family Practice 09/21/22 Unknown, Notinfile 01/02/22 documented as of this encounter
--- OUTSIDE RECORDS SUMMARY | 2024-03-15 15:01 | XMS_ITS | Encounter Summary ---
Author Organization [facility] Address [address] [facility] [address] [place] [address] Care Team Providers Care Precision Machine Operator Name Role Phone Ifrah Monroe MD Primary Care Provider Unknown, Notinfile Unavailable Unavailable Reason for Visit * Reason Onset Date Comments Test Results 10/28/2022 Encounter Details Date Type Department Care Team (Late st Contact Info) Description 10/28/2022 Telephone [facility] Sports Medicine and Primary Care at [address] [place] [address] Ifrah Monroe MD [address] [place] [address] [address] [place] [address] Test Results Social History Tobacco Use Types Packs/Day Years Used Date Smoking Tobacco: Former Cigarettes Smokeless Tobacco: Never PHQ-2 Answer Date Recorded PHQ-2 Total Score (If total score is 3 or more points, staff should administer the PHQ-9) 0 09/21/2022 Comments No Sex and Gender Information Value Date Recorded Sex Assigned at Not on file 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 They have already called her. Caller???s Call back #: na Does message need to be routed? No * Addendum Note - Blake Brown MA - 11/02/2022 5:32 PM CDT Addended by: BLAKE BROWN on: 11/02/2022 05:32 PM Modules accepted: Orders * Telephone Encounter - Blake Brown MA - 11/02/2022 5:26 PM CDT Confirmed with [facility] that they have hand therapy. Referral for therapy was entered and faxed to [facility]. * Telephone Encounter - Blake Brown MA - 11/02/2022 5:24 PM CDT Talked with the patient about her injury. She states her hand still hurts, the swelling has gone down a little. I explained that we wanted to try PT first and keep stan taping and if it didn't improve we will order an MRI. She agreed to the plan. She would like some place close to [place]. * Telephone Encounter - Ifrah Monroe MD - 10/28/2022 5:23 PM CDT We can send her to see occupational/hand therapy to try some targeted therapy for the hand if she would like. I would like to do a trial of using taping and hand therapy and then if still failing to improve then we can consider whether an MRI would be clinically indicated for potential ligament issue that may warrant surgical consult though conservative treatment needs to be attempted 1st Please see if she would like me to place a referral to hand therapy and if she has a preference forlocation * Telephone Encounter - Blake Brown MA - 10/28/2022 4:39 PM CDT The patient had additional questions about her finger. She reports she is still sore and swollen. She state she had seen a ligament move over her knuckle and has had pain since. She reports she has to use her hand her a lot since she is left handed. She reports has been taping her middle finger to her index finger since her middle finger bends towards her ring finger. Recommended she try elevating her hand, using ice, NSAIDS if she is able to and to make sure the tape isn't too tight. * Telephone Encounter - Tiara John - 10/28/2022 1:49 PM CDT Test Result Request Type of test: X ray Date of test: 10/09/22 Where was the test performed at?[facility] Did provider dictate result yet? Yes Where were results relayed from in the chart? Telephone encounter Caller's Callback #: [phone] Additional Questions/Comments: Patient wants to further discuss results of xray since her finger isstill hurting & swollen. Please call her back at your earliest convenience. Does message need to be routed?Yes-Action Needed * Telephone Encounter - Blake Brown MA - 10/28/2022 1:42 PM CDT LVM for the patient informing her of her xr results. * Telephone Encounter - Blake Brown MA - 10/28/2022 1:42 PM CDT ----- Message from Ifrah Monroe MD sent at 10/26/2022 6:20 PM CDT ----- Overall the 3rd MCP joint looks essentially normal. There is no signs of healing fracture, dislocation or significant arthritis at this joint. There is mild arthritis at the base of the thumb as wellas the 1st MCP and interphalangeal joints. There is also fksp-yz-hngnzbaq osteoarthritis changes atthe 3rd finger distal interphalangeal joint. I would monitor hand symptoms and do the trial of stan taping for about 2-4 weeks as was discussedin office. If still struggling after that, let me know documented in this encounter Plan of Treatment Not on file documented as of this encounter Visit Diagnoses Diagnosis Left hand pain- Primary Pain in soft tissues of limb documented in this encounter Care Teams Precision Machine Operator Relationship Specialty Start Date End Date Ifrah Monroe MD PCP - General Family Practice 09/21/22 Unknown, Notinfile 01/02/22 documented as of this encounter
--- OUTSIDE RECORDS SUMMARY | 2024-03-15 15:01 | XMS_ITS | Encounter Summary ---
Author Organization [facility] Healthcare Address [address] [place] [address] Care Team Providers Care Accounting Administrator Name Role Phone Ifrah Monroe MD Primary Care Provider Unknown, Notinfile Unavailable Unavailable Reason for Visit * Reason Onset Date Comments OT Update 12/29/2022 Encounter Details Date Type Department Care Team (Late st Contact Info) Description 12/29/2022 Telephone [facility] Primary Care at [address] [address] Pallavi Tripp ATC OT Update Social History Tobacco Use Types Packs/Day Years Used Date Smoking Tobacco: Former Cigarettes Smokeless Tobacco: Never PHQ-2 Answer Date Recorded PHQ-2 Total Score (If total score is 3 or more points, staff should administer the PHQ-9) 0 09/21/2022 Comments No Sex and Gender Information Value Date Recorded Sex Assigned at Not on file 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 During flexion the tendon glides ulnarly. He reports that once the pt's swelling went down she developed good movement and functionality. Pt has minimal pain. He wanted to give the office a heads up prior to her appointment on 12/30. He will fax his re-assessment after he finishes her appointment today. Understanding with POC was met and call ended. documented in this encounter Plan of Treatment Not on file documented as of this encounter Visit Diagnoses Not on filedocumented in this encounter Care Teams Accounting Administrator Relationship Specialty Start Date End Date Ifrah Monroe MD PCP - General Family Practice 09/21/22 Unknown, Notinfile 01/02/22 documented as of this encounter
--- OUTSIDE RECORDS SUMMARY | 2024-03-15 15:02 | XMS_ITS | Encounter Summary ---
Author Organization [facility] Address [address] [facility] [address] [place] [address] Care Team Providers Care Systems Coordinator Name Role Phone Ifrah Clemente MD Primary Care Provider Unknown, Notinfile Unavailable Unavailable Reason for Visit * Reason Onset Date Comments Test Results 09/23/2022 Encounter Details Date Type Department Care Team (Late st Contact Info) Description 09/23/2022 Telephone [facility] Sports Medicine and Primary Care at [address] [place] [address] Ifrah Clemente MD [address] [place] [address] [address] [place] [address] Test Results Social History Tobacco Use Types Packs/Day Years Used Date Smoking Tobacco: Former Cigarettes Smokeless Tobacco: Never PHQ-2 Answer Date Recorded PHQ-2 Total Score (If total score is 3 or more points, staff should administer the PHQ-9) 0 09/21/2022 Comments No Sex and Gender Information Value Date Recorded Sex Assigned at Not on file 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 She does agree to do a trial of metformin. If has significant GI intolerance thenwe can trial of the Ozempic. It was the metformin side effect of diarrhea which was her concern. She was not concerned about we go the versus Ozempic We did discuss use of Zetia for cholesterol she will monitor for intolerance. I did suggest staggering the starting of the Zetia and the metformin in case she has an adverse events so we know which 1it is. The called did drop as I was ending that discussion. I left a message on her machine for her to call back if there are further questions or concerns Requested Prescriptions Signed Prescriptions Disp Refills ezetimibe (ZETIA) 10 mg tablet 90 tablet 4 Sig: Take 1 tablet (10 mg total) by mouth daily Authorizing Provider: IFRAH CLEMENTE metFORMIN XR (GLUCOPHAGE XR) 500 mg 24 hr tablet 90 tablet 0 Sig: Take 1 tablet (500 mg total) by mouth daily with breakfast Authorizing Provider: IFRAH CLEMENTE * Telephone Encounter - Mary Jo Herrmann - 09/28/2022 12:12 PM CDT Medical Question/Miscellaneous Caller???s Concern: Patient called back in regards to weight loss medication. Patient seeking advise on medication wegovy instead of ozempic. Patient stated she cannot walk or workout due to senior living knee injury of tear in meniscus. Patient stated she is concerned about ozempic side effects with current medical conditions. Please advise with patient by phone to discuss options. Caller???s Call back #: [phone] Does message need to be routed? Yes-Action Needed * Telephone Encounter - Mary Jo Reis - 09/28/2022 11:51 AM CDT Medical Question/Miscellaneous Caller???s Concern: Patient wants to know if the diabetic medication (patient does not know the name) that Dr. Clemente wants her to start on will make her gain weight. If so, she does not want to take it. Please advise Caller???s Call back #: [phone] Does message need to be routed? Yes-Action Needed * Telephone Encounter - Pallavi Tripp ATC - 09/28/2022 11:40 AM CDT I called the pt and informed her of the below information. Per pt request, lab results re-iterated.Pt would like to proceed with the diabetes diagnosis and start the process for the Ozempic prescription. Pt also wanted to know if she could take CoQ-10 (400 mg 1 daily) and Ultra Quercetin (585 mg 1daily). I informed pt that Dr. Clemente will be informed of the above and she will receive a callwith the answers. Understanding with POC was met and call ended. * Telephone Encounter - Ifrah Clemente MD - 2022 5:10 PM CDT If patient wants to accept an official diagnosis of diabetes and proceed down that pathway, then wecan attempt to see if insurance will cover Ozempic. Ozempic is not currently approved for use in prediabetes. Wants someone is labeled with a diagnosis of diabetes that diagnosis essentially sticks with them the rest of the life but it can become diet controlled. I want to verify that she is okay wi th accepting the diagnosis of diabetes if we are going to try to get the medication approved for that Patient does need to be aware that most insurances will acquire her to trial metformin 1st for diabetic care before covering the injectable diabetic meds like Ozempic. Zetia does not typically cause any significant weight gain. I have gone ahead and sent prescriptionto the pharmacy Please see if she does want to be labelled as a diabetic and see if insurance will cover Ozempic for diabetic treatment * Telephone Encounter - Georgia Tafoya - 2022 4:10 PM CDT Call Back Caller???s Concern: Patient is calling back to office. CS did relay all results to patient and she is aware. She states she is okay with the Zetia medication unless it causes her to gain weight. Her preferred pharmacy is [facility] in [place]. She wants to know if Ozempic can be considered as amedication as well. She said she will work on diet and she said she is very limited with exercise because of her knee. Caller???s Call back #: [phone] Does message need to be routed? Yes-Action Needed * Telephone Encounter - Martita Brown MA - 2022 3:24 PM CDT LVM for the patient to call back to discuss her lab results. Will also mail a result letter. * Telephone Encounter - Martita Brown MA - 09/23/2022 8:17 AM CDT Lab was able to add an A1c to the blood that was drawn on 09/21/22. * Telephone Encounter - Martita Brown MA - 09/23/2022 8:16 AM CDT ----- Message from Ifrah Clemente MD sent at 09/22/2022 8:18 PM CDT ----- CMP - Electrolytes, kidney tests, and liver enzymes look good. Glucose was slightly elevation. Patient did have small amount of cream with her coffee prior to labs. Can we see if lab can add on a hemoglobin A1c (order placed)? TSH (thyroid function) is normal. This indicates you are in the correct dose of thyroid medication.Please continue Test for chronic hepatitis c negative. You do not have hepatitis C CBC (blood counts) are ok. No concerning findings Total cholesterol is very high at 331 (goal <200). LDL (bad cholesterol) is also very high at 234 (goal <100). Given the degree of cholesterol elevation is highly likely that you have a geneticcause high cholesterol. Given the extreme cholesterol elevation we should start you on a high intensity cholesterol medication to decrease your risk of heart attacks and strokes over the next 5-10 years. I would recommend we start a medication like zetia 10 mg daily. Please let me know where you would like it sent. It is not a statin but given your prior intolerance it would be the next 1 we could consider trying as pill. It is unlikely we will get you all the way controlled but I would try that as a next cholesterol medication after that to be considered is injectable cholesterol medication (Repatha or Praluent). Please let me know if you are agreeable to try the Zetia and where to send it I additionally you need to really work on following a healthy diet low in saturated fat, fried food, greasy food, red meat and getting regular exercise as well as weight loss documented in this encounter Plan of Treatment Not on file documented as of this encounter Visit Diagnoses Not on filedocumented in this encounter Care Teams Systems Coordinator Relationship Specialty Start Date End Date Ifrah Clemente MD PCP - General Family Practice 09/21/22 Unknown, Notinfile 01/02/22 documented as of this encounter
--- OUTSIDE RECORDS SUMMARY | 2024-03-15 15:02 | XMS_ITS | Encounter Summary ---
Author Organization [facility] Address [address] [address] Care Team Providers Care Evidence Technician Name Role Phone Ifrah Monroe MD Primary Care Provider Unknown, Notinfile Unavailable Unavailable Encounter Details Date Type Department Care Team (Late st Contact Info) Description 09/21/2022 2:30 PM CDT Lab [facility] Outpatient Lab at [address] [address] Essential hypertension (Primary Dx) Social History Tobacco Use Types Packs/Day Years Used Date Smoking Tobacco: Former Cigarettes Smokeless Tobacco: Never PHQ-2 Answer Date Recorded PHQ-2 Total Score (If total score is 3 or more points, staff should administer the PHQ-9) 0 09/21/2022 Comments No Sex and Gender Information Value Date Recorded Sex Assigned at Not on file 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
--- OUTSIDE RECORDS SUMMARY | 2024-03-15 15:02 | XMS_ITS | Encounter Summary ---
Author Organization [facility] Address [address] [place] [address] Care Team Providers Care Manager Photo Name Role Phone Ifrah Calvo MD Primary Care Provider Unknown, Notinfile Unavailable Unavailable Reason for Visit * Reason Comments Establish Care Patient is being see n to establish care. Patient reports she fell recently and is having bilateral hand pain near her 3rd MCP joint. Encounter Details Date Type Department Care Team (Late st Contact Info) Description 09/21/2022 11:00 AM CDT Office Visit [facility] Primary Care at [address] [address] Ifrah Calvo MD [address] [place] [address] [address] [place] [address] Essential hypertension (Primary Dx); Pure hypercholesterolemia; Severe episode of recurrent major depressive disorder, without psychotic features (HCC); Generalized anxiety disorder; Acquired hypothyroidism; Irritable bowel syndrome with diarrhea; Class 2 severe obesity due to excess calories with serious comorbidity and body mass index (BMI) of 35.0 to 35.9 in adult (HCC); Migraine without aura and without status migrainosus, not intractable; Psychophysiologic insomnia; Encounter for screening mammogram for malignant neoplasm of breast; Encounter for hepatitis C screening test for low risk patient; Screen for colon cancer; Screening for cervical cancer; Family history of bipolar disorder; Gastroesophageal reflux disease without esophagitis; Chronic cough; BURGESS (dyspnea on exertion); Elevated fasting glucose Social History Tobacco Use Types Packs/Day Years Used Date Smoking Tobacco: Former Cigarettes Smokeless Tobacco: Never Tobacco Cessation:Counseling Given: Not Answered PHQ-2 Answer Date Recorded PHQ-2 Total Score (If total score is 3 or more points, staff should administer the PHQ-9) 0 09/21/2022 Comments No Sex and Gender Information Value Date Recorded Sex Assigned at Not on file Legal Sex Female 7:49 PM [employer] Gender Identity Not on file Sexual Orientation Not on file documented as of this encounter Last Filed Vital Signs Vital Sign Reading Time Taken Comments Blood Pressure 132/80 09/21/2022 11:08 AM CDT Pulse 81 09/21/2022 11:08 AM CDT Temperature - - Respiratory Rate - - Oxygen Saturation - - Inhaled Oxygen Concentration - - Weight 99.8 kg (220 lb) 09/21/2022 11:08 AM CDT Height 167.6 cm (5' 6 ) 09/21/2022 11:08 AM CDT Body Mass Index 35.51 09/21/2022 11:08 AM CDT documented in this encounter Patient Instructions * Patient Instructions* Ifrah Calvo MD - 09/21/2022 11:00 AM CDT Labs today Continue current medications Referral to psychiatry Good Sleep Hygiene Handout Maintain a regular bedtime and awakening time schedule including weekends. Get up about the same time every day, regardless of what time you fell asleep. Establish a regular, relaxing bedtime routine. Relaxing rituals prior to bedtime many include a warm bath or shower, aroma therapy, reading, or listening to soothing music. Sleep in a room that is dark, quiet, comfortable, and cool; sleep on comfortable mattress and pillows. Use your bedroom only for sleep and sex. Have work materials, computers, and TVs in another room. Finish eating at least 2-3 hours prior to your regular bedtime. Avoid caffeine within 6 hours; alcohol & smoking within 2 hours of bedtime. Exercise regularly; finish a few hours before bedtime. Avoid naps. Go to bed only when sleepy. Lay in bed only for sleeping, not for work or watching TV. Designate another time to write down problems & possible solutions in the late afternoon or early evening, not close to bedtime. After 10-15 minutes of not being able to get to sleep, go to another room to read or watch TV untilsleepy. Consider doing 15+ minutes of mindfulness prior to bedtime. If you search mindfulness and free, youcan find some good starter resources on the Internet. Mindfulness Consider Mindfulness (self-guided meditation, self-awareness exercises). Doing 15-30 minutes of mindfulness a few days a week has been shown to significantly improve anxiety and depression scores. Ifyou Google Mindfulness and free you can find several good resources. Ku and [employer] haveWoowUpite with links to some good starting resource. The Daily Calm also offers some free video session on YouTube. Programs like HeadsSnaptripce and Calm offer resources for a fee. I suggest trying some free resources before considering spending money on these. You can try melatonin 1-5 mg nightly as needed for sleep. This is a supplement If you want something else to try, you can try 25-50 mg of either diphenhydramine or doxylamine. These are in the over the counter sleep aids Local Psychiatrist. Please call and see who can see you. If none of these options work, then call your insurance to seewho is network and then call those providers to schedule an appointment. It can take a couple months to get in with psychiatry, so do not turn down appointments if you feel they are too far out. You can always call back and cancel if you find a provider that can get you in sooner [facility] MD Armaan Reyes MD [address] [address] [facility] MD Anna Chapa NP Jaime Mendoza, NP Janet Woloszynek, NP [address] [place] [address] [facility] Psychiatry at [facility] [address], [place] [address] [place] [address] [facility] [address] [place] [address] Initial Appointments : [address] [place] [address] [facility] Psych[address] Dr[address] [place], [place] [phone] [place] [place] - [place], [place] [phone] Kathy Curran, [place] - [place], [place] [phone] [facility] Care Psychiatry [address] [address] Other Psychiatry locations to try: [facility] @ [phone] [facility] Behavioral Health @ [phone] [facility] @ [phone] [facility] @ [phone] If struggling but not actively suicidal and you need to see somebody more urgently for mental health consultation you can try the [facility] Behavioral Health urgent Care at [facility] [address] [place] [address], [address] [place] [address] Currently open Mon-Sat 9 am-7 pm National Suicide Prevention Lifeline 988 or 2-624-398-TALK ( ) A skilled, trained counselor in your are is available you are 24 hours a day 7 days a week to talk.If you feel in a crisis, whether or not you are thinking of hurting yourself, and need to talk please consider calling the Lifeline. All calls are confidential and FREE If actively suicidal, call 911 or go to the ER Hypertension Education High fiber, low fat, low salt: the DASH diet or Mediterranean Diet Eat fresh and avoid canned or frozen foods that are heavily processed Exercise 30 minutes a day (45-60 minutes a day if you need to lose weight) The [employer] [employer] recommends all adults [...] a healthy weight. Body mass index is 35.51 kg/m??. If your BMI (a ratio of your weight to your height) is over 25, it is recommended that you try to exercise and eat healthier in an effort to lose a few pounds Limit alcohol to no more than 1-2 drinks a day If you smoke, you should quit. Smoking increases your risk of heart attacks, strokes, lung disease and can make more blood pressure control worse. Consider checking your blood pressure (BP) 3 times per week at home. Please keep a log of your readings minimal goal <140/90, optimal <120/80 If BP is consistently running higher, call me Where can I go for more information? [place] [employer] Association National Center: http://www.americanheart.org In the top header, click ???Conditions?? . In the top header, click ???high blood pressure.?? For a printable blood pressure tracker, scroll toward the bottom of the page to Related Tools, and click ???HBP Trackers.?? 4-388-JPX-USA-1 or ( ) National Heart, Lung and Blood [place]: http://www.nhlbi.nih.gov/health/infoctr/index.htm Continue current medications: Yes. Please call office during routine office hours if any questions or concerns. See me in 3 months documented in this encounter Ordered Prescriptions Prescription Sig Dispense Quantity Refills Last Filled Start Date End Date sertraline (ZOLOFT) 100 mg tabletIndications:Se nicole episode of recurrent major depressive disorder, without psychotic features (HCC) Take 1 tablet (100 mg total) by mouth daily 90 tablet 1 09/21/2022 4 losartan (COZAAR) 100 mg tabletIndications:Es sential hypertension Take 1 tablet (100 mg total) by mouth daily 90 tablet 1 09/21/2022 3 levothyroxine (SYNTHROID) 150 mcg tabletIndications:Ac quired hypothyroidism Take 1 tablet (150 mcg total) by mouth rn practitioner before breakfast 90 tablet 09/21/2022 3 hydroCHLOROthiazide (HYDRODIURIL) 25 mg tabletIndications:Es sential hypertension Take 1 tablet (25 mg total) by mouth daily 90 tablet 1 09/21/2022 3 documented in this encounter Progress Notes * Ifrah Calvo MD - 09/21/2022 11:00 AM CDT SUBJECTIVE: Angelica Cowan is a 66 y.o. female new patient here to establish care and to discuss the following. Last PCP - Dr. Good Echo Tech is Dr. Quinteros at [facility]. Has appointment tomorrow with him. Had umbilical hernia surgery in March. Following surgery had persistent cough. Pt believes me mayhave been COVID but reports was never tested. Pt reports coughed for 4 months consistent until was admitted at Beginning of June. Reports in may had positive COVID. Was admitted in June with hypoxia. Denies hx of lung issues prior to hospitalization On symbicort, duonebs, as needed albuterol HTN - losartan 100 mg, HCTZ 25 mg daily HLD - not on rx. Took rx in past but refuses to take any more. Reports made her constipated with Crestor and another statin Chronic migraines, without aura - sees neurology, Dr. Parker. On Aimovig, topiramate 200 mg twice daily, amitriptyline 50 mg and as needed Zomig Additionally has a history of occipital neuralgia GERD and IBS with diarrhea - mostly diarrhea. No blood in stool. Notes that taking statins cause this to become severe constipation though. . She is due for colonoscopy Has chronic anxiety and depression - pt on sertraline. Hx of personal traumas when younger Struggles with chronic depression + family hx of BAD in children. One of her children attempted suicide in past. Brother with schizophrenia and BAD. On sertraline Denies hallucinations or delusions. Denies young or hypomania. Denies SI Struggles with mood. Wants to see psych for treatment PHQ Screening Over the past 2 weeks, how often have you been bothered by any of the following problems? Little Interest or Pleasure in Doing Things: Not at all Feeling Down, Depressed, or Hopeless: Not at all PHQ-2 Total Score (If total score is 3 or more points, staff should administer the PHQ-9): 0 Hypothyroidism - on levothyroxine 150 mcg daily. Denies missed doses. Takes on empty stomach Patient notes she fell recently but denies any significant injury. She did not mentioned any complaint of hand pain or other issues to me. She notes mostly issues have fully healed since then PMH, PSH, and FamHx all updated and reviewed as indicated Current Outpatient Medications Medication Sig Dispense Refill Aimovig Autoinjector 70 [...] tablet (81 mg total) by mouth daily biotin 10 mg tablet Take 1 tablet (10 mg total) by mouth daily brimonidine (ALPHAGAN) 0.15 % ophthalmic solution 1 drop 2 (two) times a day budesonide-formoteroL (SYMBICORT) 160-4.5 mcg/actuation inhaler Inhale 2 puffs 2 (two) times a day cholecalciferol (VITAMIN D-3) 82508 unit tablet Take 1 tablet (10,000 Units total) by mouth 4 (four) times a day folic acid (FOLVITE) 800 mcg tablet Take 1 tablet (800 mcg total) by mouth daily ipratropium-albuteroL (DUO-NEB) 0.5-2.5 mg/3 mL nebulizer solution Take by nebulization every 12 (twelve) hours 160/4.5 lysine 1,000 mg tablet Take 1 tablet by mouth daily magnesium oxide 400 mg magnesium tablet Take 400 mg by mouth daily phytonadione, vit K1, (phytonadione, vitamin K1,) 100 mcg tablet Take 1 tablet (100 mcg total) by mouth 2 (two) times a day topiramate (TOPAMAX) 100 mg tablet Take 2 tablets (200 mg total) by mouth 2 (two) times a day TURMERIC ORAL Take 1,600 mg by mouth daily UNABLE TO FIND Take 1 each by mouth daily Med Name: [employer] vitamin E 400 unit capsule Take 1 capsule (400 Units total) by mouth daily ZOLMitriptan (ZOMIG) 5 mg tablet Take 1 tablet (5 mg total) by mouth once as needed for migraine hydroCHLOROthiazide (HYDRODIURIL) 25 mg tablet Take 1 tablet (25 mg total) by mouth daily 90 tablet1 levothyroxine (SYNTHROID) 150 mcg tablet Take 1 tablet (150 mcg total) by mouth rn practitioner before breakfast 90 tablet 0 losartan (COZAAR) 100 mg tablet Take 1 tablet (100 mg total) by mouth daily 90 tablet 1 sertraline (ZOLOFT) 100 mg tablet Take 1 tablet (100 mg total) by mouth daily 90 tablet 1 No current facility-administered medications for this visit. Social History Tobacco Use Smoking status: Former Types: Cigarettes Smokeless tobacco: Never Substance and Sexual Activity Drug use: Not Currently Types: Marijuana Sexual activity: None Alcohol Use: Not on file No Known Allergies REVIEW OF SYSTEMS Constitutional: Denies fever, chills Ears, nose, mouth, and throat: Denies nasal discharge, sorethroat Respiratory: Denies cough, dyspnea, wheezing Cardiovascular: Denies chest pain, palpitations Gastrointestinal: see hpi Musculoskeletal: Denies myalgias Neurological: Denies numbness, tingling, syncope, dizziness. Denies TIA or stroke-like symptoms Behavioral/Psych: see hpi Endocrine: Denies fatigue Last Colonoscopy: over 10 yrs ago. Has hemorrhoids Last mammogram - over 1 yr ago. Due Last pap - long time. 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 General: alert, well appearing, and in no acute distress HEENT: Normocephalic atraumatic. PERRLA, EOMI, no conjunctivitis. Bilateral TM's and external ear canals normal. No cervical adenopathy. CV exam: regular rate and rhythm, normal S1 and S2, no murmurs, rubs, or gallops appreciated. Respiratory: clear to auscultation bilaterally, no wheezes, rales, or rhonchi, Good aeration. no tachypnea, retractions, or cyanosis Abdominal exam: Soft, non-tender abdomen. No rebound or guarding. No masses or hepatosplenomegaly noted. Neuro: Alert and oriented x 3, Cranial nerves II-XII grossly intact. PERRLA. EOMI. Strength and sensation grossly intact in bilateral upper extremities and bilateral lower extremities. Grossly non-focal Psych: Normal mood and affect today. Skin: Warm, dry, without significant rash Ext: No cyanosis, clubbing. No peripheral edema. ASSESSMENT & PLAN: Diagnoses and all orders for this visit: Essential hypertension (I10) (Primary) Assessment & Plan: Blood pressure controlled in office with current prescription medications. We will continue. Encouraged healthy diet, exercise, weight loss Orders: - Comprehensive metabolic panel; Future - TSH; Future - Lipid panel; Future - CBC with auto differential; Future - hydroCHLOROthiazide (HYDRODIURIL) 25 mg tablet; Take 1 tablet (25 mg total) by mouth daily - losartan (COZAAR) 100 mg tablet; Take 1 tablet (100 mg total) by mouth daily Pure hypercholesterolemia (E78.00) Assessment & Plan: Patient reports had constipation with statins in the past. Currently untreated. Check cholesterol level and consider a trial of Zetia Orders: - Comprehensive metabolic panel; Future - TSH; Future - Lipid panel; Future Severe episode of recurrent major depressive disorder, without psychotic features (HCC) (F33.2) Assessment & Plan: Depression needs improvement. Referral to psychiatry provided as requested. Contract for safety. Supportive counseling provided in office Orders: - Ambulatory referral to Psychiatry; Future - sertraline (ZOLOFT) 100 mg tablet; Take 1 tablet (100 mg total) by mouth daily Generalized anxiety disorder (F41.1) Assessment & Plan: Anxiety is uncontrolled and needs some improvement. We will refer to Psychiatry. Monitor symptoms for now. Given on TCA and SSRI we have to be cautious with adding or adjusting medication Orders: - Ambulatory referral to Psychiatry; Future Acquired hypothyroidism (E03.9) Assessment & Plan: Relatively euthyroid. Will check TSH and adjust levothyroxine as needed as reports medication was adjusted a few months ago and has not had follow-up testing since then Orders: - TSH; Future - levothyroxine (SYNTHROID) 150 mcg tablet; Take 1 tablet (150 mcg total) by mouth rn practitioner before breakfast Irritable bowel syndrome with diarrhea (K58.0) Assessment & Plan: Avoid triggers. Okay for regular use of MiraLax and fiber supplements for constipation if needed Orders: - Comprehensive metabolic panel; Future - TSH; Future - Lipid panel; Future - CBC with auto differential; Future - Ambulatory referral to Gastroenterology; Future Class 2 severe obesity due to excess calories with serious comorbidity and body mass index (BMI) of35.0 to 35.9 in adult (HCC) (E66.01, Z68.35) Assessment & Plan: Encouraged healthy diet, exercise, weight loss. BMI is not at goal Migraine without aura and without status migrainosus, not intractable (G43.009) Psychophysiologic insomnia (F51.04) Assessment & Plan: Insomnia needs improvement. Work on contributing mental health issues. Discussed sleep hygiene and other sleep tips. Monitor. Given current medications would avoid use of trazodone and sedative hypnotics Encounter for screening mammogram for malignant neoplasm of breast (Z12.31) - SCREENING MAMMOGRAM BILATERAL W MAURIZIO; Future Encounter for hepatitis C screening test for low risk patient (Z11.59) - Hepatitis C antibody; Future Screen for colon cancer (Z12.11) - Ambulatory referral to Gastroenterology; Future Screening for cervical cancer (Z12.4) - Ambulatory referral to Obstetrics / Gynecology; Future Family history of bipolar disorder (Z81.8) Gastroesophageal reflux disease without esophagitis (K21.9) Assessment & Plan: Work on diet and avoid triggers. Monitor indigestion symptoms Chronic cough (R05.3) Assessment & Plan: Continue care per pulmonology. Has appointment tomorrow. She is stable on inhalers. Unclear if thiswas truly related to COVID or something else defer to specialist BURGESS (dyspnea on exertion) (R06.09) Assessment & Plan: Continue care per pulmonology. Has appointment tomorrow. She is stable on inhalers. Unclear if thiswas truly related to COVID or something else defer to specialist Advised to call or return if symptoms worsen or fail to improve as expected, or pt develops any other concerning symptoms. An After Visit Summary was printed and given to the patient. F/u in 3 months for HTN and other issues Ifrah Calvo MD documented in this encounter Miscellaneous Notes * Assessment & Plan Note - Ifrah Calvo MD - 09/21/2022 8:06 PM CDT Associated Problem(s): BURGESS (dyspnea on exertion) (Resolved 12/30/2022) Continue care per pulmonology. Has appointment tomorrow. She is stable on inhalers. Unclear if thiswas truly related to COVID or something else defer to specialist * Assessment & Plan Note - Ifrah Calvo MD - 09/21/2022 8:06 PM CDT Associated Problem(s): Chronic cough Continue care per pulmonology. Has appointment tomorrow. She is stable on inhalers. Unclear if this was truly related to COVID or something else defer to specialist * Assessment & Plan Note - Ifrah Calvo MD - 09/21/2022 8:05 PM CDT Associated Problem(s): Gastroesophageal reflux disease without esophagitis Work on diet and avoid triggers. Monitor indigestion symptoms * Assessment & Plan Note - Ifrah Calvo MD - 09/21/2022 8:03 PM CDT Associated Problem(s): Psychophysiologic insomnia Insomnia needs improvement. Work on contributing mental health issues. Discussed sleep hygiene and other sleep tips. Monitor. Given current medications would avoid use of trazodone and sedative hypnotics * Assessment & Plan Note - Ifrah Calvo MD - 09/21/2022 8:02 PM CDT Associated Problem(s): Spondylolisthesis, lumbar region Grade 2 anterior listhesis of the lumbar spine noted on prior lumbar MRI at [facility] * Assessment & Plan Note - Ifrah Calvo MD - 09/21/2022 8:02 PM CDT Associated Problem(s): Lumbar spondylosis Noted on prior MRI at [facility] a few years ago * Assessment & Plan Note - Ifrah Calvo MD - 09/21/2022 8:01 PM CDT Associated Problem(s): Severe episode of recurrent major depressive disorder, without psychotic features (HCC) Depression needs improvement. Referral to psychiatry provided as requested. Contract for safety. Supportive counseling provided in office * Assessment & Plan Note - Ifrah Calvo MD - 09/21/2022 8:01 PM CDT Associated Problem(s): Pure hypercholesterolemia (Resolved 05/03/2023) Patient reports had constipation with statins in the past. Currently untreated. Check cholesterol level and consider a trial of Zetia * Assessment & Plan Note - Ifrah Calvo MD - 09/21/2022 8:01 PM CDT Associated Problem(s): Irritable bowel syndrome with diarrhea Avoid triggers. Okay for regular use of MiraLax and fiber supplements for constipation if needed * Assessment & Plan Note - Ifrah Calvo MD - 09/21/2022 8:00 PM CDT Associated Problem(s): Generalized anxiety disorder Anxiety is uncontrolled and needs some improvement. We will refer to Psychiatry. Monitor symptoms for now. Given on TCA and SSRI we have to be cautious with adding or adjusting medication * Assessment & Plan Note - Ifrah Calvo MD - 09/21/2022 8:00 PM CDT Associated Problem(s): Essential hypertension Blood pressure controlled in office with current prescription medications. We will continue. Encouraged healthy diet, exercise, weight loss * Assessment & Plan Note - Ifrah Calvo MD - 09/21/2022 7:59 PM CDT Associated Problem(s): Class 1 obesity due to excess calories with serious comorbidity and body mass index (BMI) of 31.0 to 31.9 in adult Encouraged healthy diet, exercise, weight loss. BMI is not at goal * Assessment & Plan Note - Ifrah Calvo MD - 09/21/2022 7:59 PM CDT Associated Problem(s): Acquired hypothyroidism Relatively euthyroid. Will check TSH and adjust levothyroxine as needed as reports medication was adjusted a few months ago and has not had follow-up testing since then * Addendum Note - Ifrah Calvo MD - 09/21/2022 11:00 AM CDTAddended by: IFRAH CALVO on: 09/22/2022 08:19 PM Modules accepted: Orders documented in this encounter Plan of Treatment Not on file documented as of this encounter Results * (ABNORMAL) CBC with auto differential (09/21/2022 12:27 PM CDT) Pathologist [facility] WBC 6.3 3.8 - 9.9 K/cumm [facility] Hgb 15.4 11.9 - 15.5 g/dL [facility] Hct 47.7(H) 35.6 - 45.5 % [facility] Plt 323 150 - 400 K/cumm [facility] MPV 10.2 9.1 - 12.3 fL [facility] RBC 5.17 3.90 - 5.20 M/cumm [facility] MCV 92.3 81.3 - 96.4 fL [facility] MCH 29.8 27.1 - 33.3 pg [facility] MCHC 32.3 32.3 - 35.7 g/dL [facility] RDW CV 13.9 11.1 - 14.9 % [facility] RDW SD 47.2 35.7 - 48.1 fL [facility] NRBC abs 0.00 0.00 - 0.01 K/cumm [facility] Blood 09/21/2022 12:2 7 PM CDT 09/21/2022 6:43 PM CDT us Ifrah Calvo MD LAB BLOOD ORDERABLES F inal Result [facility] [address] [address] [place] [address] * Hepatitis C antibody (09/21/2022 12:27 PM CDT) Pathologist [facility] Hep C Ab Nonreactive Nonreactive [facility] Comment: Interpretive Data Nonreactive: Antibodies to HCV [...] 7 PM CDT 09/21/2022 6:43 PM CDT us Ifrah Calvo MD LAB MICROBIOLOGY - GEN ERAL ORDERABLES Final Result Performing Organization Address City/State/ZIP Co ak Phone Number JOAQUIN [phone] [address] Department of Laboratories [place], [place] [id number] * (ABNORMAL) Lipid panel (09/21/2022 12:27 PM CDT) Cholesterol 331(H) 30 - 199 mg/dL JOAQUIN BRIAN Comment: Interpretive Data Ages [...] Data was last revised on 2017. Triglycerides 191(H) <=149 mg/dL JOAQUIN BRIAN Comment: Interpretive Data [...] Data was last revised on 2017. HDL 59 >=40 mg/dL JOAQUIN BRIAN Comment: Interpretive Data [...] was last revised on 2017. LDL, calculated 234(H) <=129 mg/dL JOAQUIN BRIAN Comment: Interpretive Data [...] was last revised on 2017. Non-HDL Cholesterol 272 mg/dL JOAQUIN BRIAN Comment: Interpretive Data Ages [...] was last revised on 2017. Chol/HDL ratio 6 CERNER CH Blood 09/21/2022 12:2 7 PM CDT 09/21/2022 6:43 PM CDT Ifrah Calvo MD LAB BLOOD ORDERABLES F inal Result Performing Organization Address City/[facility]/ZIP Co de Phone Number JOAQUIN [phone] [address] [place] [address] * TSH (09/21/2022 12:27 PM CDT) Thyroid Stimulating Hormone 4.05 0.30 - 4.20 mcIUnit/mL CERNER CH Blood 09/21/2022 12:2 7 PM CDT 09/21/2022 6:43 PM CDT Ifrah Calvo MD LAB BLOOD ORDERABLES F inal Result Performing Organization Address City/[facility]/ZIP Co de Phone Number CERKARIE [phone] [address] [place] [address] * (ABNORMAL) Comprehensive metabolic panel (09/21/2022 12:27 PM CDT) Sodium 139 135 - 145 mmol/L CERNER CH Potassium, pl 3.8 3.3 - 4.9 mmol/L CERNER [facility] Chloride 97 97 - 110 mmol/L [facility]ERN[facility] CO2 27 22 - 32 mmol/L CERNER [facility] Anion gap 15 2 - 15 mmol/L CERN[facility] BUN 21 6 - 25 mg/dL CERNER [facility] Creatinine 1.09 0.60 - 1.10 mg/dL CERNER CH Glucose 115 70 - 199 mg/dL CERNER CH Comment: [...] classification and Diagnosis of Diabetes Diabetes Care 202; 46: S19-S40. Current interpretive data was last revised 2022. Calcium 10.2 8.5 - 10.3 mg/dL CERNER CH Bilirubin, total 0.3 0.1 - 1.2 mg/dL CERNER CH Protein, pl 8.0 6.5 - 8.5 g/dL CERNER [facility] Albumin 4.7 3.5 - 5.0 g/dL CERNER [facility] Alk phos 80 40 - 130 Units/L [facility]ERNER [facility] ALT <5(L) 7 - 45 Units/L [facility]ER [facility] AST 19 10 - 45 Units/L CERNER CH Blood 09/21/2022 12:2 7 PM CDT 09/21/2022 6:43 PM CDT Ifrah Calvo MD LAB BLOOD ORDERABLES F inal Result [facility] [id number] [address] [place] [address] documented in this encounter Visit Diagnoses Diagnosis Essential hypertension- Primary Unspecified essential hypertension Pure hypercholesterolemia Severe episode of recurrent major depressive disorder, without psychotic features (HCC) Generalized anxiety disorder Acquired hypothyroidism Unspecified hypothyroidism Irritable bowel syndrome with diarrhea Irritable bowel syndrome Class 2 severe obesity due to excess calories with serious comorbidity and body mass index (BMI) of 35.0 to 35.9 in adult (HCC) Migraine without aura and without status migrainosus, not intractable Psychophysiologic insomnia Encounter for screening mammogram for malignant neoplasm of breast Encounter for hepatitis C screening test for low risk patient Screen for colon cancer Special screening for malignant neoplasms, colon Screening for cervical cancer Screening for malignant neoplasm of the cervix Family history of bipolar disorder Family history of psychiatric condition Gastroesophageal reflux disease without esophagitis Esophageal reflux Chronic cough Cough BURGESS (dyspnea on exertion) Other dyspnea and respiratory abnormality Elevated fasting glucose Impaired fasting glucose documented in this encounter Discontinued Medications Medication Sig Discontinue Reason Start Date End Da te sertraline (ZOLOFT) 100 mg tablet Take 1 tablet (100 mg total) by mouth daily Reorder 09/21/2022 hydroCHLOROthiazide (HYDRODIURIL) 25 mg tablet Take 1 tablet (25 mg total) by mouth daily Reorder 06/22/2022 09/21/2022 losartan (COZAAR) 100 mg tablet Take 1 tablet (100 mg total) by mouth daily Reorder 06/23/2022 09/21/2022 levothyroxine (SYNTHROID) 150 mcg tablet Take 1 tablet (150 mcg total) by mouth daily Reorder 09/21/2022 documented as of this encounter Historical Medications * This list may reflect changes made after this encounter. magnesium oxide 400 mg magnesium tablet Take 400 mg by mouth daily TURMERIC ORAL Take 1,600 mg by mouth daily folic acid (FOLVITE) 800 mcg tablet Take 1 tablet (800 mcg total) by mouth daily lysine 1,000 mg tablet Take 1 tablet by mouth daily UNABLE TO FIND Take 1 each by mouth daily Med Name: [employer] vitamin E 400 unit capsule Take 1 capsule (400 Units total) by mouth daily phytonadione, vit K1, (phytonadione, vitamin K1,) 100 mcg tablet Take 1 tablet (100 mcg total) by mouth 2 (two) times a day cholecalciferol (VITAMIN D-3) 47323 unit tablet Take 1 tablet (10,000 Units total) by mouth 4 (four) times a day biotin 10 mg tablet Take 1 tablet (10 mg total) by mouth daily albuterol HFA (PROVENTIL HFA,VENTOLIN HFA,PROAIR HFA) 90 mcg/actuation inhaler Inhale 2 puffs 2 (two) times a day 08/07/2022 amitriptyline (ELAVIL) 50 mg tablet Take 1.5 tablets (75 mg total) by mouth nightly aspirin 81 mg enteric coated tablet Take 1 tablet (81 mg total) by mouth daily brimonidine (ALPHAGAN) 0.15 % ophthalmic solution 1 drop 2 (two) times a day 07/02/2022 topiramate (TOPAMAX) 100 mg tablet Take 2 tablets (200 mg total) by mouth 2 (two) times a day 11/19/2017 ZOLMitriptan (ZOMIG) 5 mg tablet Take 1 tablet (5 mg total) by mouth once as needed for migraine budesonide-formot Viktoriya (SYMBICORT) 160-4.5 mcg/actuation inhaler Inhale 2 puffs 2 (two) times a day 08/17/2022 3 levothyroxine (SYNTHROID) 150 mcg tablet Take 1 tablet (150 mcg total) by mouth daily 3 ipratropium-albut Viktoriya (DUO-NEB) 0.5-2.5 mg/3 mL nebulizer solution Take by nebulization every 12 (twelve) hours 160/4.5 08/18/2022 4 losartan (COZAAR) 100 mg tablet Take 1 tablet (100 mg total) by mouth daily 06/23/2022 3 hydroCHLOROthiazi de (HYDRODIURIL) 25 mg tablet Take 1 tablet (25 mg total) by mouth daily 06/22/2022 3 Aimovig Autoinjector 70 mg/mL auto-injector subcutaneous injection Inject under the skin every 30 (thirty) days 08/27/2022 4 sertraline (ZOLOFT) 100 mg tablet Take 1 tablet (100 mg total) by mouth daily 3 added in this encounter Care Teams Manager Photo Relationship Specialty Start Date End Date Ifrah Calvo MD PCP - General Family Practice 09/21/22 Unknown, Notinfile 01/02/22 documented as of this encounter
--- OUTSIDE RECORDS SUMMARY | 2024-03-15 15:02 | XMS_ITS | Encounter Summary ---
Author Organization [facility] Address [address] [address] Care Team Providers Care Grape Grower Name Role Phone Ifrah Calvo MD Primary Care Provider Unknown, Notinfile Unavailable Unavailable Reason for Referral * Diagnostic Imaging (Routine) - Closed Specialty Diagnoses / Procedures Referred By Celestina andrews Referred To Contact Diagnoses Left hand pain Procedures XR Hand Left 3 or More Views Ifrah Calvo MD Phone: tel: fax: [facility] Referral ID Status Reason Start Date Expiration Date Visits Re quested Visits Authorized [id number] Closed 10/09/2022 11/08/2023 1 1 Reason for Visit * Reason Comments Hand Pain Patient is being see n for left hand pain. Patient reports she thinks she injured it in May - she fell while carrying a case of water bottles. She was seen at [facility] for it. It hurts to open a jar, writing, grabbing something. She states it looks swollen. She is left handed. The pain is located at the 3rd MCP joint. She states she can feel something moving over the knuckle. Encounter Details Date Type Department Care Team (Late Contact Info) Description 10/09/2022 10:45 AM CDT Office Visit [facility] at [address] [phone] Ifrah Calvo MD [address] [place] [address] [address] [place] [address] Left hand pain (Primary Dx); Elevated hemoglobin A1c Social History Tobacco Use Types Packs/Day Years Used Date Smoking Tobacco: Former Cigarettes Smokeless Tobacco: Never PHQ-2 Answer Date Recorded PHQ-2 Total Score (If total score is 3 or more points, staff should administer the PHQ-9) 0 09/21/2022 Comments No Sex and Gender Information Value Date Recorded Sex Assigned at Not on file Legal Sex Female 7:49 PM [employer] Gender Identity Not on file Sexual Orientation Not on file documented as of this encounter Last Filed Vital Signs Vital Sign Reading Time Taken Comments Blood Pressure 130/78 10/09/2022 10:52 AM CDT Pulse 75 10/09/2022 10:52 AM CDT Temperature - - Respiratory Rate - - Oxygen Saturation - - Inhaled Oxygen Concentration - - Weight 100.2 kg (221 lb) 10/09/2022 10:52 AM CDT Height 172.7 cm (5' 8 ) 10/09/2022 10:52 AM CDT Body Mass Index 33.6 10/09/2022 10:52 AM CDT documented in this encounter Patient Instructions * Patient Instructions* Ifrah Calvo MD - 10/09/2022 10:45 AM CDT X-ray is typically here Wednesday-Wednesday starting at 8:30.. She usually leaves at 4 pm. They often take lunch sometime between 12 and 1 pm. [facility] tape to adjacent finger for the next few weeks documented in this encounter Progress Notes * Rell Waters MD - 10/09/2022 10:45 AM CDT FOLLOW UP VISIT Subjective CHIEF COMPLAINT She had concerns including Hand Pain (Patient is being seen for left hand pain. Patient reports shethinks she injured it in May - she fell while carrying a case of water bottles. She was seen at [place] [facility] for it. It hurts to open a jar, writing, grabbing something. She states it looks swollen.She is left handed. The pain is located at the 3rd MCP joint. She states she can feel something moving over the knuckle./). HISTORY OF PRESENT ILLNESS 67-year-old female past medical history hypertension, dyslipidemia major depressive disorder, generalized anxiety disorder hypothyroidism, IBS and class 2 obesity presenting for left hand pain. Site: L 3 MCP Intensity: 9/10 with activity. 0/10 rest Quality: Weakness. Sharp dull stabbing Onset: Lifting a case of water, fell hit on ground. June Radiation: Proximally to wrist Alleviating factors: None. Ibuprofen (tries to minimize intake) Aggravating factors: Twisting motion, writing (L handed), lifting Associated factors: Weakness Was swollen and bruised. Bruising has resolved, but swelling persists. Mild erythema to the joint. Tried topical w/o relief. Paresthesias: No Full movement: Yes Fever: No fevers, weight loss or chills. EMT evaluated on seen at [facility]. Went to [place] had XR. States that the x- rays were negative. Has a history of previous 3rd distal extremity fracture that was not repaired greater than 10 yearsago. Reports having dirrhea 3-4x/day since starting Metformin. Has notice a difference when taking on anempty or full stomach. Concern about possible intolerance. Colonoscopy Wednesday, states no pathology. Was advised to continue for fibre for diverticulosis. MEDICATIONS She has a current medication list which includes the following prescription(s): aimovig autoinjector, albuterol hfa, amitriptyline, aspirin, biotin, brimonidine, budesonide-formoterol, cholecalciferol, ezetimibe, folic acid, hydrochlorothiazide, ipratropium-albuterol, levothyroxine, losartan, lysine, magnesium oxide, metformin xr, phytonadione (vitamin k1), sertraline, topiramate, turmeric, UNABLE TO FIND, vitamin e, and zolmitriptan. REVIEW OF SYSTEMS Review of Systems Constitutional: Negative for activity change, appetite change, chills, fever and unexpected weight change. Respiratory: Negative for shortness of breath. Cardiovascular: Negative for chest pain. Gastrointestinal: Positive for diarrhea. Negative for abdominal pain, nausea and vomiting. Skin: Negative for rash and wound. Neurological: Positive for weakness. Negative for numbness. All other systems reviewed and are negative. Objective PHYSICAL EXAM BP 130/78 (BP Location: Left arm, Patient Position: Sitting) Pulse 75 Ht 172.7 cm (5' 8 ) Wt 100.2 kg (221 lb) BMI 33.60 kg/m?? C Spine Right strength The patient has 5/5 strength throughout. Wrist extension: 5/5 strength.Wrist flexion: 5/5 strength.Engraver Machine: 5/5 strength.Hand intrinsics: 5/5 strength Left strength The patient has 5/5 strength throughout. Wrist extension: 5/5 strength. Wrist flexion: 5/5. Engraver Machine: 5/5 strength. Hand intrinsics: 5/5 strength. Right neurovascular Patient has normal light touch sensation. Radial pulse: 2+ Ulnar pulse: 2+ Left neurovascular Radial pulse: 2+ Ulnar pulse: 2+ Brachial pulse: 2+ The patient has normal light touch sensation. Right hand/wrist Inspection Erythema: present (Dorsum of left 3rd MCP) Effusion: absent Edema: absent Skin temperature: normal Surgical scar/wound: absent. Visible mass: absent. Dorsal ganglion: absent. Volar ganglion: absent.Intrinsic atrophy: absent. Thenar atrophy: absent Palpation Tenderness: absent (MCP left 3rd digit and joint. No tenderness along other joints.). Range of motion The patient has normal range of motion of the right wrist. Th patient has normal range of motion of the fingers on the right hand. Stability The patient has normal stability of the right hand and wrist. Strength The patient has 5/5 strength throughout the right hand and wrist. Neurovascular The patient has normal vascular on the right side of their body. The patient has normal sensation on the right side of their body. Left hand/wrist Palpation Tenderness: present. The tenderness is located in the MCP. Range of motion Index: MP: The patient has normal range of motion of the left fingers. Stability The patient has nomal stability of the left hand and wrist. Strength The patient has 5/5 strength throughout. Neurovascular The patient has normal vascular on the left side of their body. The patient has normal sensation. No pain with loading of joints Cardiovascular: RRR normal S1-S2 no rubs murmurs or gallops. Respiratory: Clear to auscultation bilaterally Abdomen: Normal bowel sounds. Nontender with palpation REVIEW OF X-RAYS/STUDIES/LABS Assessment/Plan Angelica was seen today for hand pain. Diagnoses and all orders for this visit: Left hand pain - XR Hand Left 3+ Vw; Future PLAN Left hand pain: Pain after greater than 2 months of sustained trauma. Tenderness with palpation to MCP. Nontender to other joints of bilateral hands. Low suspicion for autoimmune cause at this time. Suspect possiblearthritic joint versus possible sprain of ligaments. Reports initial x-rays were negative, but did not have on hand. Will reimage x-ray. Results pending at time of end of shift, discussed case with Dr. Calvo will continue further management and treatment plan. If negative x-rays, suggest buddytaping for immobilization and will re-evaluate in a few weeks. Continue p.r.n. pain control as tolerated. Diabetes mellitus type 2: Reports compliance with metformin and persistent nausea and vomiting. Recommend continue trial for few weeks. If persistent emesis, potentially experiencing metformin intolerance and will consider trying for approval of GLP 1. Suggested trying medication with food. Diverticulosis: IBS: Reports that she has not tried fiber supplementation at this time. Recommend starting fiber supplementation for regular bowel movements. Hypertension: Vital signs reviewed and presently stable. Major depressive disorder: Generalized anxiety disorder: Mood stable at this time. Previously given referral for psychiatrist. Hypothyroidism: Continue Synthroid 150 mcg q.a.m.. Class 2 obesity: BMI 33.60 in office today. Recommend continued lifestyle modifications and daily exercise greater 150 minutes per week. Voice recognition software [employer] Fluency Direct was used dictate and transcribe this document. [address] variances may occur. Despite proofreading, typographical errors may occur. Rell Waters MD PGY-2 [facility] Family Medicine Residency [facility] 10/09/2022 12:03 PM Cosigned by Ifrah Calvo MD at 10/09/2022 3:16 PM CDT Associated attestation - Ifrah Calvo MD - 10/09/2022 3:16 PM CDT I have seen and examined the patient. I agree with the findings and plan of care as documented in the resident/fellow's note. Subjective Patient was seen in office today for evaluation of left hand pain near the 3rd MCP. Originally injured back in May after fall. X-rays at that time were reportedly negative for fracture. Patient hasbeen struggling with intermittent pain with in his knuckles since then. She notes that with certainmotions she initially was feeling something snapped back and forth across the knuckles but that is slowly improved. The knuckle remains swollen and painful. There is no tingling or numbness. Patient denies any symptoms in the right hand. Patient initially had recent hemoglobin A1c elevated at 6.6 concerning for probable development of diabetes. We discussed options to manage this after the last visit. Patient elected to go ahead and accept a diagnosis of diabetes and to be started on medication. She was started on metformin extended [id number] mg once daily. She has had slight diarrhea since starting it but also just did a recentcolonoscopy prep so it is unclear what degree may be related to the recent colonoscopy and her bowels not yet returning to normal. Patient does have some interested in starting something like Ozempicdown the road to help with blood sugar control and weight loss if possible. Given her insurance we recommended a trial of metformin before possibly progressing to an injectable medication. Objective BP 130/78 (BP Location: Left arm, Patient Position: Sitting) Pulse 75 Ht 172.7 cm (5' 8 ) Wt 100.2 kg (221 lb) BMI 33.60 kg/m?? Patient's left hand shows mild swelling to the 3rd MCP. She does have slight deformity to the distal phalanx of the 3rd finger from remote injury. There is no other deformity to the hand. There is mild tenderness to the dorsum of the 3rd MCP. There is some discomfort with axial loading of the 3rd MCP but it is relatively mild. There is no gross instability to radial or ulnar stress at the 3rd MCPwhen tested at 90?? of flexion. She lacks the ability to fully flex the finger due to slight discomfort but range of motion is only slightly decreased. She has active strength for flexion and extension. There is no tenderness to the 2nd, 4th, 5th MCPs. I do not see any signs of synovitis to any of the other joints in her fingers. ASSESSMENT & PLAN: Diagnoses and all orders for this visit: Left hand pain (M79.642) (Primary) - XR Hand Left 3 or More Views; Future Elevated hemoglobin A1c (R73.09) Left hand x-rays were ordered to assess for possible occult fracture or bone injury not seen on initial x-rays at the time of injury. Unfortunately, there was some miscommunication with radiology andthey were unable to do the x-rays today. X-rays were change to be done as an outpatient as a walk-in. We will follow up on results once completed next week. In the meantime patient was advised to stan tape to the adjacent finger to help support the area. It is less likely that there is an occult fracture. It is possible patient may have had a mild ligamentous injury. Hopefully she will improve with a short period of stan taping. If she fails to improve with conservative measures and x-rays rem ain negative then we may need to consider obtaining advanced imaging on hand in the future. Questions answered. Patient agrees with plan In regards to the borderline new diagnosis of diabetes, discussed with patient use of metformin. I would like her to give it another week or 2 to see how the mild diarrhea does. If he fails to improve then we will declared in intolerance and could consider changing to something like right pulses orOzempic instead to help her blood sugars as well for the potential added weight loss benefit. Questions answered. Patient agrees with the plan Advised to call or return to the office as needed if symptoms worsen or fail to improve as anticipated, or pt develops any other concerning symptoms. An After Visit Summary was printed and given to the patient. Follow up in 3 months as planned Ifrah Calvo MD\ documented in this encounter Plan of Treatment Not on file documented as of this encounter Results * XR Hand Left [...] joint and interphalangeal joint of the thumb. ??Knqz-ws-ptayysow osteoarthritis DIP joint 3rd finger. ??Minimal change of the interphalangeal joints of the hand otherwise. ??Soft tissues are unremarkable. 3rd MCP joint demonstrates no focal abnormality. IMPRESSION: No acute fracture. Qvjx-qh-xcgtolcj osteoarthritis as above. THIS IS AN ELECTRONICALLY VERIFIED FINAL REPORT 10/26/2022 10:05 AM - Electronically signed by ??Marcelino MILLS D: ??10/26/2022 10:05 AM T: Report ID: [id number] Reading Location: ??[id number] Procedure Note Marcelino Jimenez MD - 10/26/2022 EXAM DESCRIPTION: XR HAND LEFT 3 OR MORE VIEWS REASON FOR STUDY: Pain; 3rd MCP pain since May after falling. TECHNIQUE: 3 radiographic view(s) of the left hand . COMPARISON: No prior FINDINGS: Normal mineralization. No acute fracture or dislocation. Moderate osteoarthritis 1st carpometacarpal joint. Mild of the 1st MCPjoint and interphalangeal joint of the thumb. Doeh-ly-ollwyiro osteoarthritisDIP joint 3rd finger. Minimal change of the interphalangeal joints of thehand otherwise. Soft tissues are unremarkable. 3rd MCP joint demonstrates no focal abnormality. IMPRESSION: No acute fracture. Zbkl-zi-vuhizabl osteoarthritis as above. THIS IS AN ELECTRONICALLY VERIFIED FINAL REPORT 10/26/2022 10:05 AM - Electronically signed by Marcelino MILLS T: Report ID: [id number] Reading Location: [id number] Ifrha Calvo MD IMG XR PROCEDURES Consuelo l Result documented in this encounter Visit Diagnoses Diagnosis Left hand pain- Primary Pain in soft tissues of limb Elevated hemoglobin A1c Other abnormal blood chemistry Left hand pain Pain in soft tissues of limb documented in this encounter Care Teams Grape Grower Relationship Specialty Start Date End Date Ifrah Calvo MD PCP - General Family Practice 09/21/22 Unknown, Notinfile 01/02/22 documented as of this encounter
--- OUTSIDE RECORDS SUMMARY | 2024-03-15 15:02 | XMS_ITS | Encounter Summary ---
Author Organization [facility] Address [address] [address] Care Team Providers Care Reservation Manager Name Role Phone Ifrah Monroe MD Primary Care Provider Unknown, Notinfile Unavailable Unavailable Reason for Visit * Reason Onset Date Comments Medical Question/Miscellaneous 09/28/2022 Encounter Details Date Type Department Care Team (Late st Contact Info) Description 09/28/2022 Telephone [facility] Primary Care at [address] [address] Ifrah Monroe MD [address] [place] [address] [address] [place] [address] Medical Question/Miscellaneous Social History Tobacco Use Types Packs/Day Years Used Date Smoking Tobacco: Former Cigarettes Smokeless Tobacco: Never PHQ-2 Answer Date Recorded PHQ-2 Total Score (If total score is 3 or more points, staff should administer the PHQ-9) 0 09/21/2022 Comments No Sex and Gender Information Value Date Recorded Sex Assigned at Not on file Legal 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 Patient likely had been calling back through the exchange as I tried to return call to her as I got send her voicemail as well. As long as there were no additional questions I had told her in the voicemail I left that we will just follow up at her next visit * Telephone Encounter - Kathe Daniels - 09/28/2022 5:46 PM CDT Medical Question/Miscellaneous Caller???s Concern: Pt returning call to doctor. Pt stated, the phone before she could hear the last of the msg the doctor was discussing with her. Pt stated she has no other questions. Caller???s Call back #: [phone] Does message need to be routed? Yes-FYI Only documented in this encounter Plan of Treatment Not on file documented as of this encounter Visit Diagnoses Not on filedocumented in this encounter Care Teams Reservation Manager Relationship Specialty Start Date End Date Ifrah Monroe MD PCP - General Family Practice 09/21/22 Unknown, Notinfile 01/02/22 documented as of this encounter
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
--- OUTSIDE RECORDS SUMMARY | 2024-03-15 15:02 | XMS_ITS | Encounter Summary ---
Author Organization [facility] Healthcare Address [address] [place] [address] Care Team Providers Care Chainstitch Hemmer Name Role Phone Unavailable Primary Care Provider Unavailabl e Encounter Details Date Type Department Care Team (Latest Contact Info) Description 03/09/2013 4:01 PM TUBE CUTTER OPERATOR - 03/09/2013 5:39 PM TUBE CUTTER OPERATOR Hospital Encounter [facility] [place] [address] [facility] [address] [place], [place] [id number] Contusion of back; Fall from other slipping, tripping, or stumbling; Essential hypertension; Headache; Other depressive disorder; Contusion of shoulder region Social History Tobacco Use Types Packs/Day Years Used Date Smoking Tobacco: Never Assessed Comments Unknown Sex and Gender Information Value Date Recorded Sex Assigned at Not on file 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 Gender Identity Not on file Sexual Orientation Not on file documented as of this encounter Last Filed Vital Signs Vital Sign Reading Time Taken Comments Blood Pressure 146/93 03/09/2013 4:10 PM TUBE CUTTER OPERATOR Pulse 86 03/09/2013 4:10 PM TUBE CUTTER OPERATOR Temperature 36 ??C (96.8 ??F) 03/09/2013 4:10 PM TUBE CUTTER OPERATOR Respiratory Rate - - Oxygen Saturation 99% 03/09/2013 4:10 PM TUBE CUTTER OPERATOR Inhaled Oxygen Concentration - - Weight 98 kg (216 lb) 03/09/2013 4:10 PM TUBE CUTTER OPERATOR Height 170.2 cm (5' 7 ) 03/09/2013 4:10 PM TUBE CUTTER OPERATOR Body Mass Index 33.83 03/09/2013 4:10 PM TUBE CUTTER OPERATOR documented in this encounter Plan of Treatment Not on file documented as of this encounter Procedures Procedure Name Priority Date/Time Associated Diagnosis Comments XR SHOULDER LEFT 2 OR MORE VIEWS Routine 03/09/2013 12:00 AM TUBE CUTTER OPERATOR XR SPINE LUMBAR 2 OR 3 VIEWS Routine 03/09/2013 12:00 AM TUBE CUTTER OPERATOR XR SPINE THORACIC 3 VIEWS Routine 03/09/2013 12:00 AM TUBE CUTTER OPERATOR documented in this encounter Results * XR Shoulder Left 2 or More Views (03/09/2013 12:00 AM TUBE CUTTER OPERATOR) Anatomical Region Laterality Modality Upper Extremities, Shoulder Left Radi ographic Imaging 03/09/2013 Impressions 03/09/2013 4:56 PM TUBE CUTTER OPERATOR ?? 1. ??No acute fracture dislocation. 2. ??Mild degenerative changes. 3. ??Small lucent lesion with sclerotic margin at the physeal scar, likely an incidental finding, though comparison with prior examinations to ensure stability would be of benefit. ??Finding is new, further imaging with bone scan or MRI would be recommended THIS IS AN ELECTRONICALLY VERIFIED REPORT 03/09/2013 4:53 PM: ??Mayra Hunter M.D. Mayra Hunter M.D. TB:tb 04:53 PM 04:53 PM [facility] [EOD] Narrative 03/09/2013 4:56 PM TUBE CUTTER OPERATOR EXAMINATION: ??Left shoulder 3 views HISTORY: Injury with pain TECHNIQUE: ??Internal-external rotation views and a scapular Y view COMPARISON: ??None FINDINGS: ??There is no acute fracture or dislocation. ??There are mild degenerative changes noted in the acromioclavicular joint and greater tuberosity. ??There is a small lucency with sclerotic margin noted at the humeral head, about to the physeal scar. ??This is likely an incidental finding, however, comparison with prior radiographs if available would be of benefit in further evaluation. ??The soft tissue structures are unremarkable in appearance. Procedure Note Provider, MD Adonis - 08/13/2020 EXAMINATION: Left shoulder 3 views HISTORY: Injury with pain TECHNIQUE: Internal-external rotation views and a scapular Y view COMPARISON: None FINDINGS: There is no acute fracture or dislocation. There are mild degenerative changes noted in the acromioclavicular joint and greater tuberosity. There is a small lucency with sclerotic margin noted at the humeral head, about to the physeal scar. This is likely an incidental finding, however, comparison with prior radiographs if available would beof benefit in further evaluation. The soft tissue structures areunremarkable in appearance. IMPRESSION: 1. No acute fracture dislocation. 2. Mild degenerative changes. 3. Small lucent lesion with sclerotic margin at the physeal scar, likelyan incidental finding, though comparison with prior examinations to ensure stability would be of benefit. Finding is new, further imaging with bonescan or MRI would be recommended THIS IS AN ELECTRONICALLY VERIFIED REPORT 03/09/2013 4:53 PM: Mayra Hunter M.D. Mayra Hunter M.D. TB:tb 04:53 PM 04:53 PM [facility] [EOD] us Rosanna ARELLANO IMG XR PROCEDURES Final R esult * XR Spine Lumbar 2 or 3 Views (03/09/2013 12:00 AM TUBE CUTTER OPERATOR) Anatomical Region Laterality Modality Spine N/A Radiographic Jami ging 03/09/2013 Impressions 03/09/2013 4:54 PM TUBE CUTTER OPERATOR ?? 1. ??No definite acute osseous abnormality within the lumbar spine. 2. ??Anterolisthesis at L4-5, new compared to the prior examination. 3. ??Degenerative disc disease and facet DJD, somewhat more advanced than on the previous examination. If occult injury remains of concern clinically, CT or MRI could be considered. THIS IS AN ELECTRONICALLY VERIFIED REPORT 03/09/2013 4:50 PM: ??Mayra Hunter M.D. Mayra Hunter M.D. TB:tb 04:50 PM 04:50 PM [facility] [EOD] Narrative 03/09/2013 4:54 PM TUBE CUTTER OPERATOR EXAMINATION: ??Lumbar spine previous HISTORY: Injury with pain TECHNIQUE: ??Frontal, lateral and cone down lateral views were performed. COMPARISON: ??03/12/2008 FINDINGS: ??There is dextroconvex curvature which is stable in appearance compared to the previous examination. ??There is grade 1 anterolisthesis of L4 on L5 no definite pars defect is identified. ??There is degenerative disc disease noted at L3-4, L 4/5 and ??L5-S1. ??Facet DJD is noted. ??There is no acute fracture visualized. ??The pedicles do appear grossly intact. Procedure Note Provider, MD Adonis - 08/13/2020 EXAMINATION: Lumbar spine previous HISTORY: Injury with pain TECHNIQUE: Frontal, lateral and cone down lateral views were performed. COMPARISON: 03/12/2008 FINDINGS: There is dextroconvex curvature which is stable in appearance compared to the previous examination. There is grade 1 anterolisthesis ofL4 on L5 no definite pars defect is identified. There is degenerative disc disease noted at L3-4, L 4/5 and L5-S1. Facet DJD is noted. There is no acute fracture visualized. The pedicles do appear grossly intact. IMPRESSION: 1. No definite acute osseous abnormality within the lumbar spine. 2. Anterolisthesis at L4-5, new compared to the prior examination. 3. Degenerative disc disease and facet DJD, somewhat more advanced thanon the previous examination. If occult injury remains of concern clinically, CT or MRI could beconsidered. THIS IS AN ELECTRONICALLY VERIFIED REPORT 03/09/2013 4:50 PM: Mayra Hunter M.D. Mayra Hunter M.D. TB:tb 04:50 PM 04:50 PM [facility] [EOD] Rosanna ARELLANO IMG XR PROCEDURES Final R esult * XR Spine Thoracic 3 Vw (03/09/2013 12:00 AM TUBE CUTTER OPERATOR) Anatomical Region Laterality Modality Spine N/A Radiographic Jami ging 03/09/2013 Impressions 03/09/2013 4:58 PM TUBE CUTTER OPERATOR ?? 1. ??Degenerative changes in the thoracic spine without acute fracture or subluxation. THIS IS AN ELECTRONICALLY VERIFIED REPORT 03/09/2013 4:55 PM: ??Mayra Hunter M.D. Mayra Hunter M.D. TB:hernan 04:55 PM 04:55 PM [facility] [EOD] Narrative 03/09/2013 4:58 PM TUBE CUTTER OPERATOR EXAMINATION: ??The thoracic spine 3 views HISTORY: Injury with pain TECHNIQUE: ??Frontal, lateral and swimmers lateral views COMPARISON: ??03/12/2008 FINDINGS: ??There is stable alignment of the thoracic vertebral bodies. ??There is mild underlying kyphosis. ??Multilevel degenerative disc disease is noted with disc space narrowing and endplate osteophytes. ??There is no acute fracture or subluxation. ??There is some degenerative disc disease noted in the cervical spine greatest at C5-6. ??The paraspinal soft tissue structures are within normal limits. ??The pedicles are somewhat difficult to assess, though appear grossly stable compared to the previous examination. ??Mild cardiomegaly is suggested. ??The lung penny are grossly stable in appearance compared to the previous study. Procedure Note Provider, Historical, MD - 08/13/2020 EXAMINATION: The thoracic spine 3 views HISTORY: Injury with pain TECHNIQUE: Frontal, lateral and swimmers lateral views COMPARISON: 03/12/2008 FINDINGS: There is stable alignment of the thoracic vertebral bodies.There is mild underlying kyphosis. Multilevel degenerative disc disease isnoted with disc space narrowing and endplate osteophytes. There is no acute fracture or subluxation. There is some degenerative disc disease noted inthe cervical spine greatest at C5-6. The paraspinal soft tissue structuresare within normal limits. The pedicles are somewhat difficult to assess,though appear grossly stable compared to the previous examination. Mildcardiomegaly is suggested. The lung penny are grossly stable in appearance comparedto the previous study. IMPRESSION: 1. Degenerative changes in the thoracic spine without acute fracture or subluxation. THIS IS AN ELECTRONICALLY VERIFIED REPORT 03/09/2013 4:55 PM: Mayra Hunter M.D. Mayra Hunter M.D. TB:hernan 04:55 PM 04:55 PM [facility] [EOD] Rosanna ARELLANO IMG XR PROCEDURES Final R esult documented in this encounter Visit Diagnoses Diagnosis Contusion of back Fall from other slipping, tripping, or stumbling Essential hypertension Unspecified essential hypertension Headache Other depressive disorder Contusion of shoulder region documented in this encounter
--- OUTSIDE RECORDS SUMMARY | 2024-03-15 15:02 | XMS_ITS | Encounter Summary ---
Author Organization [facility] Healthcare Address [address] [place] [address] Care Team Providers Care Perioperative Assistant Name Role Phone Ifrah Monroe MD Primary Care Provider Unknown, Notinfile Unavailable Unavailable Encounter Details Date Type Department Care Team (Latest Contact Info) Description 09/21/2022 12:27 PM CDT - 09/21/2022 11:59 PM CDT Hospital Encounter [facility] [address] [place] [address] Essential hypertension; Irritable bowel syndrome with diarrhea; Encounter for hepatitis C screening test for low risk patient; Pure hypercholesterolemia; Acquired hypothyroidism Discharge Disposition: Discharge to home [...] on file 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 Gender Identity Not on file Sexual Orientation Not on file documented as of this encounter Medications at Time of Discharge albuterol HFA (PROVENTIL HFA,VENTOLIN HFA,PROAIR HFA) 90 mcg/actuation inhaler Inhale 2 puffs 2 (two) times a day 3 amitriptyline (ELAVIL) 50 mg tablet Take 1.5 tablets (75 mg total) by mouth nightly aspirin 81 mg enteric coated tablet Take 1 tablet (81 mg total) by mouth daily biotin 10 mg tablet Take 1 tablet (10 mg total) by mouth daily brimonidine (ALPHAGAN) 0.15 % ophthalmic solution 1 drop 2 (two) times a day 3 cholecalciferol (VITAMIN D-3) 48780 unit tablet Take 1 tablet (10,000 Units [...] mouth 2 (two) times a day 8 TURMERIC ORAL Take 1,600 mg by mouth daily UNABLE TO FIND Take 1 each by mouth daily Med Name: SoundBetter vitamin E 400 unit capsule Take 1 capsule (400 Units total) by mouth daily ZOLMitriptan (ZOMIG) 5 mg tablet Take 1 tablet (5 mg total) by mouth once as needed for migraine Aimovig Autoinjector 70 mg/mL auto-injector subcutaneous injection Inject under the skin every 30 (thirty) days 3 05/03/19 24 budesonide-formoter oL (SYMBICORT) 160-4.5 mcg/actuation inhaler Inhale 2 puffs 2 (two) times a day 3 12/31/19 23 hydroCHLOROthiazide (HYDRODIURIL) 25 mg tabletIndications:E ssential hypertension Take 1 tablet (25 mg total) by mouth daily 90 tablet 1 3 03/25/20 23 ipratropium-albuter oL (DUO-NEB) 0.5-2.5 mg/3 mL nebulizer solution Take by nebulization every 12 (twelve) hours 160/4.5 3 11/17/19 24 levothyroxine (SYNTHROID) 150 mcg tabletIndications:A cquired hypothyroidism Take 1 tablet (150 mcg total) by mouth roving can tender before breakfast 90 tablet 3 12/24/19 23 losartan (COZAAR) 100 mg tabletIndications:E ssential hypertension Take 1 tablet (100 mg total) by mouth daily 90 tablet 1 3 03/26/20 23 sertraline (ZOLOFT) 100 mg tabletIndications: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, without psychotic features (HCC) Take 1 tablet (100 mg total) by mouth daily 90 tablet 1 3 04/29/19 24 documented as of this encounter Discharge Disposition Disposition Code Departure Means Destination Discharge to home or self care documented in this encounter Plan of Treatment Pending Results Name Type Priority Associated Diagnoses Date /Time Hemoglobin A1c Lab Routine 09/21/2022 12:27 PM CDT Scheduled Orders Name Type Priority Associated Diagnoses Orde r Schedule Hemoglobin A1c Lab Routine Once for 1 Occurrences starting 09/21/2022 until 09/21/2022 documented as of this encounter Procedures Procedure Name Priority Date/Time Associated Diagnosis Comments EGFR Routine 09/21/2022 12:27 PM CDT Essential hypertension Pure hypercholesterolem ia Irritable bowel syndrome with diarrhea DIFFERENTIAL AUTO Routine 09/21/2022 12: 27 PM CDT Essential hypertension Irritable bowel syndrome with diarrhea CBC WITH AUTO DIFFERENTIAL Routine 09/21/2022 12:27 PM CDT Essential hypertension Irritable bowel syndrome with diarrhea HEPATITIS C ANTIBODY Routine 09/21/2022 12:27 PM CDT Encounter for hepatitis C screening test for low risk patient TSH Routine 09/21/2022 12:27 PM CDT Essential hypertension Acquired hypothyroidism Pure hypercholesterolem ia Irritable bowel syndrome with diarrhea HEMOGLOBIN A1C Routine 09/21/2022 12:27 PM CDT Essential hypertension Irritable bowel syndrome with diarrhea LIPID PANEL Routine 09/21/2022 12:27 PM CDT Essential hypertension Pure hypercholesterolem ia Irritable bowel syndrome with diarrhea COMPREHENSIVE METABOLIC PANEL Routine 09/21/2022 12:27 PM CDT Essential hypertension Pure hypercholesterolem ia Irritable bowel syndrome with diarrhea documented in this encounter Results * (ABNORMAL) Hemoglobin A1c (09/21/2022 12:27 PM CDT) Pathologist [facility] Hgb A1C 6.6(H) 4.0 - 5.6 % JOAQUIN BRIAN Estimated Average Glucose 143 mg/dL JOAQUIN BRIAN Comment: The ADA recommends reporting an estimated Average Glucose (eAG) with all Hemoglobin A1c results using the equation derived from a study of 507 normal and diabetic adults. ??Minority populations were underrepresented and children were not included. ?? (Diabetes Care 31:0093-9624, 2008). ??The eAG is not equivalent to a fasting glucose. Blood 09/21/2022 12:2 7 PM CDT 09/21/2022 6:51 PM CDT Ifrah Monroe MD LAB BLOOD ORDERABLES F inal Result [facility] [address] Department [place] [address] * eGFR (09/21/2022 12:27 PM CDT) Pathologist [facility] eGFR 57 mL/min/1. 73 m2 JOAQUIN Comment: Interpretive Data Reference Interval Normal ?>/= [...] interpretive data was last reviewed 2021. Blood 09/21/2022 12:2 7 PM CDT 09/21/2022 6:51 PM CDT us Ifrah Monroe MD LAB BLOOD ORDERABLES F inal Result JOAQUIN [address] Department [place] [address] * Differential, auto (09/21/2022 12:27 PM CDT) Neutrophil abs 3.6 1.7 - 6.5 K/cumm CERNER Imm gran abs 0.0 0.0 - 0.1 K/cumm [facility] Lymphocyte abs 1.6 0.8 - 3.3 K/cumm CERNER Monocyte abs 0.5 0.2 - 0.8 K/cumm [facility] Eosinophil abs 0.5 0.0 - 0.5 K/cumm [facility] Basophil abs 0.1 0.0 - 0.1 K/cumm [facility] Neutrophil pct 56.5 % [facility] Comment: Interpretive Data Percent cell count reference ranges are not reported, since discordance with absolute values may lead to misinterpretation of CBC data. Current Interpretive Data was last revised on 2017. Imm gran pct 0.5 % JOAQUIN Comment: Interpretive Data Percent cell count reference ranges are not reported, since discordance with absolute values may lead to misinterpretation of CBC data. Current Interpretive Data was last revised on 2017. Lymphocyte pct 26.0 % JOAQUIN Comment: Interpretive Data Percent cell count reference ranges are not reported, since discordance with absolute values may lead to misinterpretation of CBC data. Current Interpretive Data was last revised on 2017. Monocyte pct 7.7 % CERNER Comment: Interpretive Data Percent cell count reference ranges are not reported, since discordance with absolute values may lead to misinterpretation of CBC data. Current Interpretive Data was last revised on 2017. Eosinophil pct 8.0 % CERNER Comment: Interpretive Data Percent cell count reference ranges are not reported, since discordance with absolute values may lead to misinterpretation of CBC data. Current Interpretive Data was last revised on 2017. Basophil pct 1.3 % CERNER Comment: Interpretive Data Percent cell count reference ranges are not reported, since discordance with absolute values may lead to misinterpretation of CBC data. Current Interpretive Data was last revised on 2017. Blood 09/21/2022 12:2 7 PM CDT 09/21/2022 6:43 PM CDT Ifrah Monroe MD LAB BLOOD ORDERABLES F inal Result [facility] [address] Department [place] [address] * (ABNORMAL) Comprehensive metabolic panel (09/21/2022 12:27 PM CDT) Sodium 139 135 - 145 mmol/L [facility] Potassium, pl 3.8 3.3 - 4.9 mmol/L [facility] Chloride 97 97 - 110 mmol/L [facility] CO2 27 22 - 32 mmol/L [facility] Anion gap 15 2 - 15 mmol/L [facility] BUN 21 6 - 25 mg/dL [facility] Creatinine 1.09 0.60 - 1.10 mg/dL [facility] Glucose 115 70 - 199 mg/dL [facility] Comment: Interpretive Data Fasting glucose >/= [...] 6:43 PM CDT Ifrah Monroe MD LAB BLOOD ORDERABLES F inal Result Performing Organization Address [facility] de Phone Number JOAQUIN [address] [place] [address] * TSH (09/21/2022 12:27 PM CDT) Thyroid Stimulating Hormone 4.05 0.30 - 4.20 mcIUnit/mL [facility] Blood 09/21/2022 12:2 7 PM CDT 09/21/2022 6:43 PM CDT Ifrah Monroe MD LAB BLOOD ORDERABLES F inal Result Performing Organization Address [facility] de Phone Number [facility] [address] [address] [place] [address] * (ABNORMAL) Lipid panel (09/21/2022 12:27 PM CDT) Cholesterol 331(H) 30 - 199 mg/dL [facility] Comment: Interpretive Data Ages [...] 2017. LDL, calculated 234(H) <=129 mg/dL JOAQUIN Comment: Interpretive Data Ages [...] on 2017. Non-HDL Cholesterol 272 mg/dL JOAQUIN Comment: Interpretive Data Ages < [...] revised on 2017. Chol/HDL ratio 6 [facility] Blood 09/21/2022 12:2 7 PM CDT 09/21/2022 6:43 PM CDT us Ifrah Monroe MD LAB BLOOD ORDERABLES F inal Result Performing Organization Address [facility]/ZIP Co de Phone Number JOAQUIN BRIAN [address] [place] [address] * Hepatitis C antibody (09/21/2022 12:27 PM CDT) Pathologist [facility] Hep C Ab Nonreactive Nonreactive [facility] Comment: Interpretive Data Nonreactive: Antibodies to HCV [...] ERAL ORDERABLES Final Result Performing Organization Address [facility] Co de Phone Number JOAQUIN BRIAN [address] [address] [place] [address] * (ABNORMAL) CBC with auto differential (09/21/2022 12:27 PM CDT) [facility] WBC 6.3 3.8 - 9.9 K/cumm [facility] Hgb 15.4 11.9 - 15.5 g/dL [facility] Hct 47.7(H) 35.6 - 45.5 % [facility] Plt 323 150 - 400 K/cumm [facility] MPV 10.2 9.1 - 12.3 fL [facility] RBC 5.17 3.90 - 5.20 M/cumm [facility] MCV 92.3 81.3 - 96.4 fL [facility] MCH 29.8 27.1 - 33.3 pg [facility] MCHC 32.3 32.3 - 35.7 g/dL [facility] RDW CV 13.9 11.1 - 14.9 % [facility] RDW SD 47.2 35.7 - 48.1 fL JOAQUIN NRBC abs 0.00 0.00 - 0.01 K/cumm JOAQUIN Blood 09/21/2022 12:2 7 PM CDT 09/21/2022 6:43 PM CDT Ifrah Monroe MD LAB BLOOD ORDERABLES F inal Result JOAQUIN [address] Department [place] [address] documented in this encounter Visit Diagnoses Diagnosis Essential hypertension Unspecified essential hypertension Irritable bowel syndrome with diarrhea Irritable bowel syndrome Encounter for hepatitis C screening test for low risk patient Pure hypercholesterolemia Acquired hypothyroidism Unspecified hypothyroidism documented in this encounter Care Teams Perioperative Assistant Relationship Specialty Start Date End Date Ifrah Monroe MD PCP - General Family Practice 09/21/22 Unknown, Notinfile 01/02/22 documented as of this encounter
--- OUTSIDE RECORDS SUMMARY | 2024-03-15 15:02 | XMS_ITS | Encounter Summary ---
Author Organization [facility] Address [address] [place] [address] Care Team Providers Care Mysql Database Administrator Name Role Phone Ifrah Monroe MD Primary Care Provider Unknown, Notinfile Unavailable Unavailable Reason for Visit * Reason Onset Date Comments records 10/01/2022 Encounter Details Date Type Department Care Team (Late st Contact Info) Description 10/01/2022 Telephone [facility] Orthopedics and Sports Medicine [address] [place] [address] Ifrah Monroe MD [address] [place] [address] records Social History Tobacco Use Types Packs/Day Years Used Date Smoking Tobacco: Former Cigarettes Smokeless Tobacco: Never PHQ-2 Answer Date Recorded PHQ-2 Total Score (If total score is 3 or more points, staff should administer the PHQ-9) 0 09/21/2022 Comments No Sex and Gender Information Value Date Recorded Sex Assigned at Not on file 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 * Telephone Encounter - Kiana Larson - 10/01/2022 10:47 AM CDT Renard from Dr. Parker office calling to see how far back you would like this patient's records asthey go back to 2010. Please call her and advise, ph#[phone]. documented in this encounter Plan of Treatment Not on file documented as of this encounter Visit Diagnoses Not on filedocumented in this encounter Care Teams Mysql Database Administrator Relationship Specialty Start Date End Date Ifrah Monroe MD PCP - General Family Practice 09/21/22 Unknown, Notinfile 01/02/22 documented as of this encounter
--- OUTSIDE RECORDS SUMMARY | 2024-03-15 15:06 | XMS_ITS | Encounter Summary ---
Author Organization [facility] Address [address] [place] [address] Care Team Providers Care Chemical Waste Management Technician Name Role Phone Unavailable Primary Care Provider Unavailabl e Encounter Details Date Type Department Care Team (Late st Contact Info) Description 11/30/2023 External Device Data [facility] ABSTRACTION Provider, Abstract NO ADDRESS ON FILE Social History Tobacco Use Types Packs/Day Years [...]
--- OUTSIDE RECORDS SUMMARY | 2024-03-15 15:06 | XMS_ITS | Continuity of Care Document ---
Author Organization [facility] Address [address] [place] [address] Phone Care Team Providers Care Dev Ops Engineer Name Role Phone Sherry PT, MS, Thiago Unavailable Unavailable Procedures Procedure Date THERAPEUTIC EXERCISES NEUROMUSCULAR RE-ED HOT/COLD PACK ELECTRIC STIMULATION UNATT THERAPEUTIC EXERCISES NEUROMUSCULAR RE-ED HOT/COLD PACK ELECTRIC STIMULATION UNATT THERAPEUTIC EXERCISES NEUROMUSCULAR RE-ED HOT/COLD PACK ELECTRIC STIMULATION UNATT PT EVALUATION THERAPEUTIC EXERCISES HOT/COLD PACK ELECTRIC STIMULATION UNATT Advance Directives Directive Yes / No Effective Date File Name No Information Encounters Encounter Description Practice Location Reason(s) For Visit Diagnoses Date Provider Providers Copied on Encounter [facility], [address] [address], [place], [place], [id number], tel:[phone] [place] No Information 3 Sherry Das. [address] [facility], [facility] [address], [place], [place], [facility], [place]. tel: [phone] [facility], [address] [place] [address] [address], [place], [place], [id number], tel:[phone] [place] No Information 3 Sherry Das. [address] [facility], [facility] [address], [place], [place], [facility], [place]. tel: [phone] Referring Provider: Ángel Bishop, [address] [place] [address] [address], [place], [address]. tel:[phone], [id number], tel:[phone] [place] No Information 0 3 Sherry Thiago. [address] [facility], [address], [facility], . tel:[phone] Referring Provider: Ángel Bishop, [address] [facility] [place], [address]. tel:[phone], [id number], tel:[phone] [place] No Information 0 3 Sherrygarima Das. [address] [place] [address], [facility], . tel:[phone] Referring Provider: Ángel Bishop, [address] [facility] [place], [address]. tel:[phone] [place] [address], [id number], tel:[phone] [place] Lumbago 3 Sherrygarima Das. [address] [place] [address], [facility], . tel:[phone] Referring Provider: Ángel Bishop, [address] [facility] [place], [address]. tel:[phone] Family History Family Member Type Diagnosis Age At Onset No Information Payers Payer name Insurance type Covered democrat ID Authoriza tion(s) [facility] Emp [id number] Social History Type Description Quantity Date Captured Comments Sex Female Smoking Status No Information Chief Complaint And Reason For Visit No Information Reason For Referral Reason For Referral No Information History Of Present Illness Encounter Date Complaint History Of Prese nt Illness No Information Functional Status Date Functional Assessmen t No Information Instructions Date Instruction Additional Infor mation No Information Assessments Type Assessment Date No Information Patient Care Teams Name Effective Dates (start - stop) Status Members No Information
--- OUTSIDE RECORDS SUMMARY | 2024-03-15 15:06 | XMS_ITS | Encounter Summary ---
Author Organization [facility] Address [address] [place] [address] Care Team Providers Care Job Specification Writer Name Role Phone Unavailable Primary Care Provider Unavailabl e Encounter Details Date Type Department Care Team (Late st Contact Info) Description 10/12/2023 External Device Data [facility] ABSTRACTION Provider, Abstract [...]
--- OUTSIDE RECORDS SUMMARY | 2024-03-15 15:06 | XMS_ITS | Encounter Summary ---
Author Organization [facility] Address [address] [place] [address] Care Team Providers Care Cleaning Handyman Name Role Phone Unavailable Primary Care Provider Unavailabl e Encounter Details Date Type Department Care Team (Late st Contact Info) Description 10/19/2023 External Device Data [facility] ABSTRACTION Provider, Abstract [...]
--- OUTSIDE RECORDS SUMMARY | 2024-03-15 15:06 | XMS_ITS | Continuity of Care Document ---
Author Organization [facility] Address [address] [place] [address] [place] [address] Phone Care Team Providers Care Tmh Teacher Name Role Phone Ángel Bishop MD Unavailable Unavailable Allergies, Adverse Reactions, Alerts Substance Reaction Status Criticality No Known Allergies Active No Inform ation Medications Medication Instructions Dosage Effective Dates (start - stop) Status Comments Synthroid 200 mcg tablet take 1 tablet (200MCG) by oral route every day 200 MCG - Active amitriptyline 100 mg tablet take 1 tablet (100MG) by oral route every day at bedtime 100 MG - Active Ultram 50 mg tablet take 1 tablet (50MG) by oral route every 6 hours as needed - Active PRN for pain, avoid driving or operate machines losartan-hydrochlor othiazide 100 mg-12.5 mg tablet take 1 tablet by oral route every day 1.00 tablet - Active Synthroid 25 mcg tablet take 1 tablet (25MCG) by oral route every day 25 MCG - Active Protonix 40 mg tablet,delayed release take 1 tablet (40MG) by oral route 2 times every day 40 MG - Active Wellbutrin XL 300 mg 24 hr tablet, extended release take 1 tablet (300MG) by oral route every morning 300 MG - Active Procedures Procedure Date OFFICE/OUTPATIENT VISIT, EST OFFICE/OUTPATIENT VISIT, EST OFFICE/OUTPATIENT VISIT, EST OFFICE/OUTPATIENT VISIT, EST OFFICE/OUTPATIENT VISIT, EST OFFICE/OUTPATIENT VISIT, EST OFFICE/OUTPATIENT VISIT, EST PREV VISIT, EST, AGE 40-64 OFFICE/OUTPATIENT VISIT, EST Advance Directives Directive Yes / No Effective Date File Name No Information Encounters Encounter Description Practice Location Reason(s) For Visit Diagnoses Date Provider Providers Copied on Encounter [facility], [place], [address], [place], [place], [facility], tel:[phone] [facility] [place] No Information 4 Dario Neal. [address], [place], [facility]. tel:[phone] [facility] [place], [address], [place], [facility], tel:[phone] [facility] [place] No Information 4 Dario Neal. [address], [place], [facility]. [phone] OFFICE/OUTPA TIENT VISIT, EST [facility], [place], [address], [place], [facility], tel:[phone] [facility] [place] HTN (chief complaint) Insomnia (chief complaint) Hypothryoi dism (chief complaint) fall (chief complaint) HypothyroidismHyper tension, UnspecifiedInsomnia , OtherDietary surveillance and counseling 3 Dario Neal. [address], [place], [facility]. [phone] Referring Provider: Ángel Bishop [address], [place], [facility]. tel:[phone] [facility] [place], [address], [place], [facility], tel:[phone] [facility] [place] No Information 3 Dario Neal. [address], [place], [facility]. tel:[phone] [facility] [place], [address], [place], [facility], tel:[phone] [facility] [place] No Information 3 Dario Ross [address], [address], [place], [address]. tel:[phone] OFFICE/OUTPA TIENT VISIT, [facility], [address], [place], [address], [place] tel:[phone] [facility] [place] abdominal pain (chief complaint) Abdominal PainDietary surveillance and counselingHemorrhag e of rectum and anus Sep-2 3 Dario Neal. [address], [address], [place], [address]. [phone] Referring Provider: Ángel Bishop, [address], [place], [address]. tel:[phone] OFFICE/OUTPA TIENT VISIT, [facility], [address], [place], [address], [place] tel:[phone] [facility] [place] left axillary lymph (chief complaint) hypothryoi dism (chief complaint) heel pain (chief complaint) HypothyroidismMajor depressive affective disorder, single episode, mild degreePain in joint involving ankle and footEnlargement of lymph nodes Sep-0 3 Dario Neal. [address], [address], [place], [address]. [phone] Referring Provider: [address]oo[address], [place], [address]. tel:[phone] OFFICE/OUTPA TIENT VISIT, [facility], [address], [place], [address], [place] tel:[phone] [facility] [place] Right lower leg pain (chief complaint) HLP (chief complaint) hypothyroi dism (chief complaint) Other and unspecified hyperlipidemiaHypot hyroidismUnspecifie d vitamin d deficiencyCHRONIC PAIN NEC Jun- 3 Dario Neal. [address], [place], [address]. tel:[phone] Referring Provider: Ángel Bishop [address], [place], [address]. tel:[phone] OFFICE/OUTPA TIENT VISIT, [facility], [address], [place], [address], [place] tel:[phone] [facility] [place] back pain (chief complaint) Dietary surveillance and counselingSciaticaL umbagoHypothyroidis m 2 3 Dario Neal. [address], [address], [place], [address]. [phone] Referring Provider: Ángel Bishop, [address], [place], [address]. tel:[phone] OFFICE/OUTPA TIENT VISIT, [facility], [address], [place], [address], [place] tel:[phone] [facility] [place] leg pain (chief complaint) right buttock pain (chief complaint) Dietary surveillance and counselingPain in joint involving lower legSciatica 0 3 Dario Neal. [address], [place], [address]. [phone] Referring Provider: Farooq [address], [place], [address]. tel:[phone] OFFICE/OUTPA TIENT VISIT, [facility], [address], [place], [address], [place] tel:[phone] [facility] [place] Knee pain (chief complaint) Pain in joint involving lower leg 0 3 Dario Neal. [address], [address], [place], [address]. tel:[phone] Referring Provider: Farooq [address], [place], [address]. tel:[phone] PREV VISIT, EST, AGE 40-64 [facility] [place], [address], [place], [address], [place] tel:[phone] [facility] [place] Physical (chief complaint) Headache (chief complaint) Routine Medical ExamDietary surveillance and counselingPain in joint involving lower legDizzinessMajor depressive affective disorder, single episode, mild degreeRoutine Medical Exam 3 Dario Neal. [address], [place], [address]. tel:[phone] Family History Family Member Type Diagnosis Age At Onset Sister Problem (finding) Cancer, ovarian Father Problem (finding) Migraines Mother Problem (finding) Diabetes mellitus Payers Payer name Insurance type Covered libertarian ID Luis cabral(s) No Information Social History Type Description Quantity Date Captured Comments Sex Female Smoking Status No Information Chief Complaint And Reason For Visit No Information Plan Of Treatment Date Type Action Status Goal Tobacco cessation counseling completed Referral Ordered: Referral: Gastroentergy. ordered Referral Ordered: Ortho Surg ordered Referral Ordered: LOWER LEG TIB/FIB XRAY ordered Referral Ordered: MOTOR NERVE CONDUCTION TEST ordered Referral Ordered: Physical Therapy ordered Referral Referred To: Physical Therapy Ordered: Referral: Physical Therapy. ordered Referral Ordered: MRI LUMBAR SPINE W/O DYE ordered Referral Ordered: Referral: Ortho Surg. Evaluate and treat. ordered Referral Ordered: MRI LOWER EXTREMITY W/O DYE ordered History Of Present Illness Encounter Date Complaint History Of Prese nt Illness No Information Instructions Date Instruction Additional Infor mation Dietary counseling Related to Di etary surveillance counseling Decrease caloric intake Related to Dietary surveillance counseling Decrease caloric intake Related to Dietary surveillance counseling Dietary counseling Related to Di etary surveillance counseling Decrease caloric intake Related to Overweight Dietary counseling Related to Ov erweight Dietary counseling Related to Di etary surveillance counseling Decrease caloric intake Related to Dietary surveillance counseling Decrease caloric intake Related to Dietary surveillance counseling Dietary counseling Related to Di etary surveillance counseling Decrease caloric intake Related to Dietary surveillance counseling Dietary counseling Related to Di etary surveillance counseling Assessments Type Assessment Date No Information
--- OUTSIDE RECORDS SUMMARY | 2024-03-15 15:06 | XMS_ITS | Encounter Summary ---
Author Organization [facility] Address [address] [place] [address] Care Team Providers Care Coding Educator Name Role Phone Unavailable Primary Care Provider Unavailabl e Encounter Details Date Type Department Care Team (Late st Contact Info) Description 11/18/2023 External Device Data STL ABSTRACTION Provider, Abstract [...]
--- OUTSIDE RECORDS SUMMARY | 2024-03-15 15:06 | XMS_ITS | Clinical Summary ---
Author Organization [facility] Address [address] [place] [address] Care Team Providers Care District Sales Coordinator Name Role Phone Unavailable Primary Care Provider Unavailabl e Medications Medication Sig Dispensed Refills Start Date End Date Status lidocaine, diphenhydrAMINE, aluminum-magnesium hydroxide-simethicone SWISH AND SPIT 5 ML TWICE DAILY. SHAKE WELL. 120 mL 10/01/2023 Active Encounters Date Type Department Care Team Description 02/01/2024 External Device Data STL ABSTRACTION Provider, Abstract 12/21/2023 External Device Data STL ABSTRACTION Provider, Abstract from Last 3 Months Social History Tobacco Use Types Packs/Day Years Used Date Smoking Tobacco: Never Assessed Sex and Gender Information Value Date Recorded Sex Assigned at Not on file Gender Identity Not on file Sexual Orientation Not on file Plan of Treatment Health Maintenance Due Date Last Done Comments DTAP/TDAP/TD VACCINES (1 - Tdap) 1976 BREAST CANCER SCREENING 1997 COLORECTAL SCREENING 2002 Colorectal Cancer Screening 2002 FIT-DNA Q 3 years 2002 FIT/FOBT Q 1 year 2002 Flex Sig/CT Colonography Q 5 years 2002 ZOSTER VACCINE (1 of 2) 09/26/2007 OSTEOPOROSIS SCREENING 2022 PNEUMOCOCCAL VACCINE 65+ YEARS (1 of 1 - PCV) 09/26/19 23 INFLUENZA VACCINE (#1) 2023 RSV VACCINE (60+ or ) (1 - 1-dose 75+ series) 2032
--- OUTSIDE RECORDS SUMMARY | 2024-03-15 15:06 | XMS_ITS | Encounter Summary ---
Author Organization [facility] Address [address] [place] [address] Care Team Providers Care Split Leather Department Supervisor Name Role Phone Unavailable Primary Care Provider Unavailabl e Encounter Details Date Type Department Care Team (Late st Contact Info) Description 10/05/2023 External Device Data STL ABSTRACTION Provider, Abstract [...]
--- OUTSIDE RECORDS SUMMARY | 2024-03-15 15:06 | XMS_ITS | Encounter Summary ---
Author Organization [facility] Address [address] [place] [address] Care Team Providers Care Rapid Extractor Operator Name Role Phone Unavailable Primary Care Provider Unavailabl e Encounter Details Date Type Department Care Team (Late st Contact Info) Description 12/21/2023 External Device Data STL ABSTRACTION Provider, [...]
--- OUTSIDE RECORDS SUMMARY | 2024-03-15 15:06 | XMS_ITS | Encounter Summary ---
Author Organization [facility] Address [address] [place] [address] Care Team Providers Care Letterer Name Role Phone Unavailable Primary Care Provider Unavailabl e Encounter Details Date Type Department Care Team (Late st Contact Info) Description 02/01/2024 External Device Data STL ABSTRACTION [...]
--- OUTSIDE RECORDS SUMMARY | 2024-03-15 15:06 | XMS_ITS | Encounter Summary ---
Author Organization [facility] Address [address] [place] [address] Care Team Providers Care Chemical Pumper Name Role Phone Unavailable Primary Care Provider [...]
--- OUTSIDE RECORDS SUMMARY | 2024-03-15 15:06 | XMS_ITS | Clinical Summary ---
Author Organization [facility] Address [address] [facility] [address] Care Team Providers Care Scale Reclamation Tender Name Role Phone Nancy Dietz MD Primary Care Provider [phone] Encounters Date Type Department Care Team Description 02/15/2024 Documentation Only [facility] [address] [address] [address] [place] [phone] Adonis Pitts MD 02/04/2024 Documentation Only [facility] [address] [facility] [address] [place] [address] ProviderAdonis MD from Last 3 Months Social History Tobacco Use Types Packs/Day Years Used Date Smoking Tobacco: Never Assessed Comments Unknown Sex and Gender Information Value Date Recorded Sex Assigned at Not on file Legal Sex Female 4:50 PM EST Gender Identity Not on file Sexual Orientation Not on file Plan of Treatment Health Maintenance Due Date Last Done Comments Breast Cancer Screening 1957 Colorectal Cancer Screening: Annual FOBT 2006 Colorectal Cancer Screening: Colonoscopy 2006 Colorectal Cancer Screening: Sigmoidoscopy 2006 Pneumococcal Vaccine: 65+ Ye ars (1 of 1 - PCV) 2022 Influenza Vaccine (#1) 2023 Hepatitis B Vaccine Aged Out No longe r eligible based on patient's age to complete this topic Insurance MEDICARE [facility] Care Teams Scale Reclamation Tender Relationship Specialty Start Date End Date Nancy Dietz MD [address], [address] [place] [address] PCP - General Internal Medicine 02/04/24
--- OUTSIDE RECORDS SUMMARY | 2024-03-15 15:06 | XMS_ITS | Encounter Summary ---
Author Organization [facility] Address [address] [place] [address] Care Team Providers Care Payable Representative Name Role Phone Unavailable Primary Care Provider [...]
--- OUTSIDE RECORDS SUMMARY | 2024-03-15 15:06 | XMS_ITS | Encounter Summary ---
Author Organization [facility] Address [address] [place] [address] Care Team Providers Care Dining Service Supervisor Name Role Phone Unavailable Primary Care [...]
--- OUTSIDE RECORDS SUMMARY | 2024-03-15 15:06 | XMS_ITS | Encounter Summary ---
Author Organization [facility] Address [address] [place] [address] Care Team Providers Care Vocational Guidance Counselor Name Role Phone Unavailable Primary Care Provider [...]
--- OUTSIDE RECORDS SUMMARY | 2024-03-15 15:07 | XMS_ITS | Encounter Summary ---
Author Organization [facility] , [facility] Address [address] [place] [address] [address] [place] [address] Phone Care Team Providers Care Offal Separator Name Role Phone Nancy Dietz MD Primary Care Provider [phone] Encounter Details Date Type Department Care Team (Late st Contact Info) Description 02/15/2024 Documentation Only [facility], [address] [place] [address] Provider, MD Adonis [facility] [place], [place] [address] Social History Tobacco Use Types Packs/Day Years [...] on filedocumented in this encounter Care Teams Offal Separator Relationship Specialty Start Date End Date Nancy Dietz MD [address] [facility], [address] [place] [address] PCP - General Internal Medicine 02/04/24 documented as of this encounter
--- OUTSIDE RECORDS SUMMARY | 2024-03-15 15:07 | XMS_ITS | Encounter Summary ---
Author Organization [facility] Address [address] [place] [address] Phone Care Team Providers Care Energy Manager Name Role Phone Nancy Dietz MD Primary Care Provider [phone] Encounter Details Date Type Department Care Team (Late st Contact Info) Description 02/04/2024 Documentation Only [facility], [address] [address] Provider, MD Adonis [address] [place] [address] Social History Tobacco Use Types Packs/Day Years [...] on filedocumented in this encounter Care Teams Energy Manager Relationship Specialty Start Date End Date Nancy Dietz MD [address] [facility], [address] [place] [address] PCP - General Internal Medicine 02/04/24 documented as of this encounter
== END 2024-03-11 13:39 | disposition home or self-care (01) ==
LOC: ANHLAB 13:38
PROVIDERS: PCP Internal Medicine; Visit Provider Specialist
DX: N18.9 Chronic kidney disease, unspecified (principal); I12.9 Hypertensive chronic kidney disease with stage 1 through stage 4 chronic kidney disease, or unspecified chronic kidney disease; E55.9 Vitamin D deficiency, unspecified; R35.0 Frequency of micturition; R73.09 Other abnormal glucose; E78.41 Elevated Lipoprotein(a); E21.3 Hyperparathyroidism, unspecified; R94.6 Abnormal results of thyroid function studies
CPT/HCPCS: 81050; 82575; 84156

== ENCOUNTER 2024-05-02 10:32 | Emergency (ER) | payer MEDICARE, OTHER, SELFPAY ==
--- NOTE | ~2024-05-02 | XR_ITS ---
EXAMINATION: XR ribs BI 3V w CXR 2V DATE: 05/02/2024 12:31 INDICATION: Bilateral rib pain. Fall. TECHNIQUE: Frontal and lateral views of the chest and 2 views on 3 radiographs of the left ribs and 2 views on 3 radiographs of the right ribs were obtained. COMPARISON: Chest single view 12/09/2022 FINDINGS: CHEST TWO VIEWS: There is no pneumonia, pleural effusion, or pneumothorax. The heart size is normal. Surgical clips in the right upper quadrant are likely from cholecystectomy. There is mild chronic ant erior wedging of T12 vertebral body. BILATERAL RIBS: There is a fracture deformity of left seventh rib. IMPRESSION: 1. Age-indeterminate left seventh rib fracture. Reviewed, dictated and finalized at location [facility] [employer] [facility]
[2024-05-02 10:34] VITALS: BP 151/89; PULSE 72; RESP 16; TEMP 36.8; O2SAT 99
--- OUTSIDE RECORDS SUMMARY | 2024-05-02 11:00 | XMS_ITS | Encounter Summary ---
Author Organization [facility] [facility] Address [address] [place] [address] [address] [place] [address] Phone Care Team Providers Care Operations Business Partner Name Role Phone Nancy Dietz MD Primary Care Provider [phone] Encounter Details Date Type Department Care Team (Late st Contact Info) Description 02/15/2024 Documentation Only [facility], [address] [place] [address] Provider, MD Adonis [facility] [place], [place] [id number] Social History Tobacco Use Types Packs/Day Years [...] on filedocumented in this encounter Care Teams Operations Business Partner Relationship Specialty Start Date End Date Nancy Dietz MD [address] [facility], [address] [place] [address] PCP - General Internal Medicine 02/04/24 documented as of this encounter
--- OUTSIDE RECORDS SUMMARY | 2024-05-02 11:00 | XMS_ITS | Clinical Summary ---
Author Organization [facility] Facility Address [address] [address] Care Team Providers Care Automatic Engraver Name Role Phone Nancy Dietz MD Primary Care Provider [phone] Encounters Date Type Department Care Team Description 02/15/2024 Documentation Only [facility] [address] [address] [address] [place] [address] Adonis Pitts MD 02/04/2024 Documentation Only [facility] [employer] [facility] [address] [facility] [address] [place] [address] ProviderAdonis MD from Last 3 [...] age to complete this topic Insurance MEDICARE [facility] Care Teams Automatic Engraver Relationship Specialty Start Date End Date Nancy Dietz MD [address] [facility], [address] [place] [address] PCP - General Internal Medicine 02/04/24
--- OUTSIDE RECORDS SUMMARY | 2024-05-02 11:01 | XMS_ITS | Referral Summary ---
Author Organization [facility] Address [address] [facility] [facility] [address] [place] [id number] Phone Care Team Providers Care Pumper Hand Name Role Phone Ifrah Monroe MD Primary Care Provider Unknown, Notinfile Unavailable Unavailable Nelson Hutchison MD Unavailable [phone] Marcelino Richards MD Unavailable [phone] Juni Levy MD Unavailable + Allergies Active [...] by mouth daily Active cholecalciferol (VITAMIN D-3) 33854 unit tablet Take 1 tablet (10,000 Units [...] Take by mouth daily Active vit D3-vit D-ggvkclzzr-mhun [id number] axmr-ivd-cj-mg tablet Take 4 capsules by mouth daily [...] (175 mcg total) by mouth early childhood worker before 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 Assessment & Plan (05/03/2023 5:42 PM TOOL AND DIE TECHNICIAN): Chronic. Well-controlled in office today. Previously intolerant [...] ezetimibe Assessment & Plan (05/03/2023 8:44 AM TOOL AND DIE TECHNICIAN): Patient complained of constipation as a side [...] Medicine Assessment & Plan (05/03/2023 5:42 PM TOOL AND DIE TECHNICIAN): Chronic. Patient has a component of severe sleep apnea with some signs of central sleep apnea on her last sleep study. Feather Maker was suggesting that she might actually need [...] Mounjaro Assessment & Plan (05/03/2023 8:42 AM TOOL AND DIE TECHNICIAN): This was incidentally noted on prior CT scan in September. Given findings of chronic pancreatitis on imaging use of a GLP 1 is contraindicated Atherosclerosis of aorta 10/16/2022 Overview (10/16/2022): Incidental noted on chest x-ray dated 06/25/2022 from [facility] Assessment & Plan (11/17/2023 1:51 PM CDT): Incidental on prior imaging. Continue zetia and ASA. Statin intolerant Assessment & Plan (07/09/2023 1:28 PM CDT): Incidental on prior imaging. No signs of progression. Continue risk factor modification as indicates pt at higher risk of CAD/CVA. Continue zetia given statin intolerance Assessment & Plan (05/03/2023 8:42 AM TOOL AND DIE TECHNICIAN): Incidental on prior imaging. Tight cholesterol control [...] these Assessment & Plan (05/03/2023 8:43 AM TOOL AND DIE TECHNICIAN): Chronic. Statin intolerant. On ezetimibe. May need [...] medication Assessment & Plan (05/03/2023 5:38 PM TOOL AND DIE TECHNICIAN): Chronic. Improved on recheck. Continue current prescription [...] (11/17/2023 1:50 PM CDT): See psychiatry at [facility]. Still some mood issues. Continue sertraline. Continue follow up with psychiatry Assessment & Plan (07/02/2023 2:38 PM CDT): Chronic. Needs improvement. Brief supportive counseling provided. Continue sertraline. Patient referred to Psychiatry per her request. Patient was able to contract for safety. Greater than 5 minutes spent on assessment and discussion patient's mental health today Assessment & Plan (05/03/2023 5:38 PM TOOL AND DIE TECHNICIAN): Chronic. Uncontrolled. Needs improvement. Stressed importance of [...] (11/17/2023 1:50 PM CDT): See psychiatry at [facility]. Still some mood issues. Continue sertraline. Continue follow up with psychiatry Assessment & Plan (07/02/2023 2:38 PM CDT): Chronic. Needs improvement. Continue sertraline as patient would like to see Psychiatry for more definitive evaluation and medication adjustment. Brief supportive counseling was provided Assessment & Plan (05/03/2023 5:38 PM TOOL AND DIE TECHNICIAN): Chronic. Needs improvement. Increase sertraline Assessment & [...] TSH Assessment & Plan (05/03/2023 5:39 PM TOOL AND DIE TECHNICIAN): Biochemically euthyroid. Continue levothyroxine. Less likely that [...] today Assessment & Plan (05/03/2023 8:43 AM TOOL AND DIE TECHNICIAN): Chronic. Encouraged to modify dietary habits and [...] loss Assessment & Plan (05/03/2023 5:40 PM TOOL AND DIE TECHNICIAN): Chronic. Suboptimally controlled. Patient is not a [...] fatigue Assessment & Plan (05/03/2023 5:41 PM TOOL AND DIE TECHNICIAN): Chronic. Patient's mental health is poorly controlled [...] flares. Assessment & Plan (05/03/2023 8:44 AM TOOL AND DIE TECHNICIAN): Chronic. Following with Neurology.. Continue medication care [...] medication Assessment & Plan (05/03/2023 8:44 AM TOOL AND DIE TECHNICIAN): Work on diet and avoid triggers. Monitor [...] Trelegy. Assessment & Plan (05/03/2023 5:42 PM TOOL AND DIE TECHNICIAN): Chronic. Follows with pulmonology. She is under [...] symptoms Assessment & Plan (05/03/2023 5:37 PM TOOL AND DIE TECHNICIAN): Patient has a degree of chronic lumbar [...] PM CDT): Noted on prior MRI at [facility] a few years ago Spondylolisthesis, lumbar region 01/10/2018 Assessment & Plan (07/02/2023 2:37 PM CDT): Chronic. Encouraged to start physical therapy as previously ordered Assessment & Plan (05/03/2023 5:37 PM TOOL AND DIE TECHNICIAN): History of chronic mild grade 1-2 anterior listhesis of L5 on S1 on prior imaging. Has been recommended management with guided exercise program. Refer back to physical therapy. Stressed importance of continuing regular strengthening exercises for her back, core and legs to help manage this. Previously was not felt to need surgical intervention by software development specialist over at [facility] Assessment & Plan (09/21/2022 8:02 PM CDT): Grade 2 anterior listhesis of the lumbar spine noted on prior lumbar MRI at [facility] Resolved Problems Problem Noted Date Diagnosed [...] on file Legal Sex Female 7:49 PM TOOL AND DIE TECHNICIAN Gender Identity Not on file Sexual [...] PM CDT) Scribed Colonoscopy Abnormal Historical Provider MD HEALTH MAINTENANCE Final Result * POCT hemoglobin A1c (11/17/2023 1:54 PM CDT) Pathologist [facility] Hemoglobin A1C, POC 6.0 4.0 - 5.6 % Blood spot 11/17/2023 1:54 PM CDT Ifrah Monroe MD POINT OF CARE TEST ORD ERABLES Final Result * (ABNORMAL) eGFR (07/02/2023 12:05 PM CDT) Pathologist [facility] eGFR 56(L) >=60 mL/min/1. 73 m2 Comment: [...] ORDERABLES F inal Result Performing Organization Address [facility] Co de Phone Number JOAQUIN BRIAN [phone] [place] [address] * Albumin Creatinine Ratio, Urine [...] ORDERABLES F inal Result Performing Organization Address [facility] Co de Phone Number GIAKARIE BRIAN [address] [place] [address] * (ABNORMAL) Lipid panel (07/02/2023 12:05 PM [...] on 2017. LDL, calculated 145(H) <=129 mg/dL CERNER CH Comment: Interpretive Data Ages [...] on 2017. Non-HDL Cholesterol 173 mg/dL CERNER Comment: Interpretive Data Ages < or = [...] ORDERABLES F inal Result Performing Organization Address [facility] de Phone Number JOAQUIN BRIAN [phone] [facility] [place] [address] * Hepatitis C antibody (09/21/2022 12:27 PM CDT) Hep C Ab Nonreactive Nonreactive JOAQUIN BRIAN Comment: Interpretive Data Nonreactive: Antibodies to HCV [...] ERAL ORDERABLES Final Result Performing Organization Address [facility] Phone Number JOAQUIN BRIAN [address] [place] [address] from Last 3 Months or Most Recently Relevant to Health Maintenance Insurance MEDICARE [facility] Address: [address] [place] [address] MEDICARE [facility] [address] [place] [address] MEDICARE [facility] Address: [address] [place] [address] MEDICARE [facility] Care Teams Pumper Hand Relationship Specialty Start Date End Date Ifrah Monroe MD PCP - General Family Practice 09/21/22 Unknown, Notinfile 01/02/22 Nelson Hutchison MD [address] [place], [place] [id number] Psychiatry 11/17/23 Marcelino Richards MD [address] [place] [address] Referring Physician Pulmonary Disease 11/17/23 Juni Levy MD [address] [place] [address] Referring Physician Gastroenterology 11/17/23
--- OUTSIDE RECORDS SUMMARY | 2024-05-02 11:01 | XMS_ITS | Clinical Summary ---
Author Organization [facility] Address [address] [facility] [place] [address] Care Team Providers Care Installer Name Role Phone Unavailable Primary Care Provider Unavailabl e Medications lidocaine, diphenhydrAMINE, aluminum-magnesi um hydroxide-simeth icone SWISH AND SPIT 5 ML TWICE DAILY. SHAKE WELL. 120 mL 10/04/2023 4:35 PM CDT 10/01/2023 Active Encounters Date Type Department Care Team Description 04/19/2024 External Device Data [facility] Provider, Abstract 04/11/2024 External Device Data [facility] Provider, Abstract 02/01/2024 External Device Data [facility] Provider, Abstract from Last 3 Months Social History Tobacco Use Types Packs/Day Years Used Date Smoking Tobacco: Never Assessed Comments Unknown Sex and Gender Information Value Date Recorded Sex Assigned at Not on file Legal Sex Female 9:46 AM CDT Gender Identity Not on file Sexual Orientation Not on file Plan of Treatment Health Maintenance Due Date Last Done Comments DTAP/TDAP/TD VACCINES (1 - Tdap) 1976 BREAST CANCER SCREENING 1997 COLORECTAL SCREENING 2002 Colorectal Cancer Screening 2002 FIT-DNA Q 3 years 2002 FIT/FOBT Q 1 year 2002 Flex Sig/CT Colonography Q 5 years 2002 PNEUMOCOCCAL VACCINE 65+ YEARS (1 of 1 - PCV) 09/26/19 08 ZOSTER VACCINE (1 of 2) 09/26/2007 OSTEOPOROSIS SCREENING 2022 INFLUENZA VACCINE (#1) 2023 RSV VACCINE (60+ or ) (1 - 1-dose 75+ series) 2032 Insurance RX [facility] Medicare Part D RX [employer] (INTERNAL) [facility]
--- OUTSIDE RECORDS SUMMARY | 2024-05-02 11:01 | XMS_ITS | Patient Health Summary ---
Author Organization [facility] Address [address] [place] [address] Care Team Providers Care Construction Job Titles Name Role Phone Marcelino Ahn MD Primary Care Provider [phone] Note from [facility] [place],non-owned Affiliates and Associated Physician Practices is amultiple site organization consisting of ambulatory clinics and hospital sitesin [place], [place], [place] and [place]. This disclosure is being madepursuant to the Care Everywhere program and may not contain all information available regarding this patient. Last updated 17.[facility] [place] Allergies No known active allergies Medications * [...] 1 T PO PRF MIGRAINE * Biotin 60392 MCG TABS biotin * aspirin (ASPIRIN) 81 [...] 104.8 kg (231 lb) 03/06/2019 2:46 PM CONE TENDER Height 170.2 cm (5' 7 ) 03/06/2019 2:46 PM CONE TENDER Body Mass Index 36.18 03/06/2019 2:46 PM CONE TENDER Procedures * XR LUMBAR SPINE 2 OR [...] SPINE 2 OR 3VW (03/06/2019 2:35 PM CONE TENDER) Only the most recent of2 resultswithin the time period is included. Anatomical Region Laterality Modality Spine Radiographic Jami ging 03/06/2019 2:41 PM CONE TENDER Impressions 03/06/2019 3:48 PM CONE TENDER IMPRESSION: 1. Multilevel degenerative disc and joint disease with unchanged L5-S1 anterolisthesis. 2. Lumbar dextroscoliosis. Dictated by Dean Tang MD (Resident). I, Dr. YAA BUSH M.D. have personally reviewed and interpreted this examination/study. This report was electronically signed by YAA BUSH M.D. ??on 03/06/2019 3:48 PM . Narrative 03/06/2019 3:48 PM CONE TENDER EXAMINATION: XR LUMBAR SPINE 2 OR 3VW [...] Shirley Spaulding PA-C MR ORDERABLES Care Teams Construction Job Titles Relationship Specialty Start Date End Date Marcelino Ahn MD PCP - General 11/25/17
--- OUTSIDE RECORDS SUMMARY | 2024-05-02 11:01 | XMS_ITS | Encounter Summary ---
Author Organization [facility] Address [address] [place] [address] Care Team Providers Care City Recorder Name Role Phone Marcelino Ahn MD Primary Care Provider [phone] Reason for Visit * Reason Comments Refill Request Encounter Details Date Type Department Care Team (Late st Contact Info) Description 06/10/2019 Refill [facility] - Orthoped[facility] [address] [place] [phone] Jeremiah Bryson MD [address] [place] [phone] Refill Request Social History Tobacco Use [...] unspecified documented in this encounter Care Teams City Recorder Relationship Specialty Start Date End Date Marcelino Ahn MD PCP - General 11/25/17 documented as of this encounter
--- OUTSIDE RECORDS SUMMARY | 2024-05-02 11:01 | XMS_ITS | Data Portability ---
Author Organization [place] [facility] [place] [employer], Main Office Address [address] [place] [address] Care Team Providers Care Survey Superintendent Name Role Phone NANCY DIETZ Primary Care Provider [phone] DESTINI RUSSO Surface Water Manager [phone] Assessment Encounter Date Assessment Date Assessment LastModified by Organization Details LastModified Time 02/16/2024 02/16/2024 02/10/2024: A1C 6.2 Chol 234, TG 165, LDL 145 BUN 23, GFR 51, Gluc 117, Alb 4.6H, TP WNL HCT 46.2 Not available 02/16/2024 13:59:12 04/05/2024 04/05/2024 The patient gave verbal consent using TeleHealth services and the consent is documented in the medical record prior to using the service. The patient has been informed of what a TeleMedicine visit is. Patient is located at home. Provider is located at office. Names and roles of persons in addition to the patient and provider participating in telemedicine services include none. The patient had a 8 minute TeleMedicine consultation via [employer] to discuss the following: Not available 04/05/2024 16:37:35 Plan of Treatment Reminders Order Date Submit Date Provider Last Modified By Organization Details Last Modified Time Details Appointments Any 15 2024 09:45A Benjamin rudolph MD Not available Not available Not available Lab CMP, serum or plasma 2023 024 [facility] (Lab), [address] [place], [address], 02/02/2024 21:15:56 CBC w/ auto diff 2023 024 [facility] (Lab), [address] [place], [address], 02/02/2024 20:05:28 lipid panel, serum 2023 024 [facility] (Lab), [address] [place], [address], 02/02/2024 21:15:59 TSH, serum or plasma 2023 024 [facility] (Lab), [address] [place], [address], 02/02/2024 21:48:25 vitamin D, 25-hydrox y, total, serum [address] (Lab), [address] [place], [address], 02/09/2024 16:58:30 glycohemo globin, total, blood 2023 024 [facility] (Lab), [address] [place], [address], 02/02/2024 20:37:39 microalbu min, urine 2023 024 [facility] (Lab), [address] [place], [address], 02/02/2024 21:13:36 lipid panel, serum [address] (Lab), [address] [place], [address], 03/23/2024 11:43:43 CBC w/ auto diff [address] (Lab), [address] [place], [address], 03/23/2024 11:43:43 TSH, serum or plasma [email or web address] (Lab), [address] [place], [address], 03/16/2024 08:56:12 CMP, serum or plasma 2023 024 [facility] (Lab), [address] [place], [address], 03/03/2024 18:39:13 vitamin D, 25-hydrox y, total, serum [address] (Lab), [address] [place], [address], 03/16/2024 08:56:13 glycohemo globin, total, blood 2023 024 [email or web address] [facility] (Lab), [address] [place], [address], 02/17/2024 16:33:56 microalbu min, urine 2023 024 [facility] (Lab), [address] [place], [address], 03/03/2024 19:42:53 Referral gynecolog ist referral - Please call patient to schedule. 2023 024 IRIS Patrick MD, [address], [place], [address], 02/16/2024 10:05:57 pulmonolo gist referral - Please call patient to schedule. 2023 024 [email or web address] Annette Jorgensen STRAIGHT PIN MAKING MACHINE OPERATOR-C, [address] [facility], [address], [place], [address], 02/18/2024 16:07:10 psychiatr ist referral - Please call patient to schedule. 2023 IRIS Parsons MD, [address], [address], [place], [address], 02/16/2024 09:48:37 urologist referral - Please call patient to schedule. 2023 024 UGO Bob, [address] [facility], [address], [place], [address], 03/03/2024 15:56:55 podiatris t referral - Please call patient to schedule. 2023 024 [email or web address] Vievk Reid DPM, [address] [facility], [address], [place], [address], 02/16/2024 09:40:15 gynecolog ist referral - Please call patient to schedule. 2023 024 [email or web address] Clair Patrick MD, [address], [address], [place], [address], 02/21/2024 16:53:28 pulmonolo gist referral - Please call patient to schedule. 2023 024 [email or web address] Annette Jorgensen STRAIGHT PIN MAKING MACHINE OPERATOR-C, [address], [address], [place], [address], 02/21/2024 16:53:29 psychiatr ist referral - Please call patient to schedule. 2023 024 [email or web address] Satya Parsons MD, [address], [address], [place], [address], 02/21/2024 16:53:30 nephrolog ist referral 2023 024 [email or web address] Emanuel Mccormack MD (Nephrology, [address], [address], [place], [address], 02/21/2024 16:54:29 urologist referral - Please call patient to schedule. [address] [place] [address] James Bob, [address] [facility], [facility] [address], [place], [address], 02/21/2024 16:53:29 podiatris t referral - Please call patient to schedule. [address] [place] [address] Vivek Reid DPBenjamin, [address] [facility], [facility] [address], [place], [address], 02/21/2024 16:53:29 Procedures None recorded. Surgeries None recorded. Imaging MAMMO, screening , digital, bilateral - Please call patient to schedule. [address] ([facility] Call Scheduling), [address] [place], [address], 03/07/2024 11:59:01 DEXA, axial skeleton 2023 [facility] ([facility] Scheduling), [address] [place], [address], 04/20/2024 15:06:09 MAMMO, screening , digital, bilateral - Please call patient to schedule. [address] ([facility] Scheduling), [address] [place], [address], 02/17/2024 18:13:52 XR, hip + pelvis, bilateral , 3 or 4 view - Stat hold and call Dr Melba teixeira 2023 [facility], [address], [facility] [address], [address], 02/16/2024 16:32:52 DEXA, axial skeleton [address] ([facility] Scheduling), [address] [place], [address], 02/17/2024 18:13:33 XR, knee, 4 or more view - Stat hold and call Dr Melba rudolph! 2023 024 [facility] , [address], [address] [address], [place], [address], 02/16/2024 16:35:24 Medication Orders meloxicam 7.5 mg tablet 2023 024 edmar [facility] [address] [place], [address], 03/03/2024 14:50:53 Lipitor 80 mg tablet 2023 024 [facility] [address] [place], [address], 02/16/2024 12:48:16 oxybutyni n chloride ER 10 mg tablet,ex tended release 24 hr 2023 024 [facility] [address] [place], [address], 03/03/2024 15:53:31 Myrbetriq 50 mg tablet,ex tended release 2024 025 [facility] [address], [address] [place], [address], 04/05/2024 16:39:24 Patient TargetsNo targets recorded. Patient Instructions Encounter Date Encounter Id Patient Instructions Last Modified By Organization Details Last Modified Time 02/02/2024 [id number] dementia rating scale-2* Not available 02/02/2024 14:50:36 alcohol misuse* Not availa ble 02/02/2024 14:50:36 depression screening* Not available 02/02/2024 14:50:36 Timed Up and Go test (TUG)* Not available 02/02/2024 14:50:36 multi-dimensiona l health assessment questionnaire* Not available 02/02/2024 14:50:35 advance directiv es: care instructions Not available 02/02/2024 14:50:35 advance care planning: care instructions Not available 02/02/2024 14:50:35 [place] Advance Directives Not available 02/02/2024 14:50:36 diabetic eye exam* ATHENAFAX Not availab le 02/03/2024 13:57:42 Personalized Hea lt Plan and Screening Recommendations Advance Directives - Do you have one? No You have indicated that you are capable [...] 10% of your body weight Physical activity: Need more exercise/physical activity minimum of 10-20 minutes of activity that [...] Screening: Your next PAP/pelvic in: Referral to clinical documentation nurse Osteoporosis Screening: Your next DEXA in: Ordered Colon Cancer Screening: Colonoscopy Date Screening Last Performed:2022 Eye Disease Screening: Ordered Recommended today Dementia Risk: Low Intermediate I have no recommendations Depression Screening: Negative Positive Active diagnosis, Continue current treatment plan Not available 02/02/2024 14:40:14 02/16/2024 [id number] diabetic eye exam* ATHENAFAX Not availa ble 02/17/2024 17:40:31 03/03/2024 [id number] 1. I will send a prescription for oxybutynin XL 10 mg dispensed 90 with 3 refills 2. She needs a telehealth in about 2-3 weeks to discuss results Not available 03/03/2024 15:52:00 04/05/2024 [id number] 1. she says the oxybutynin is helping but she is having problems with constipation and she is having to take a laxative 2. I will send a prescription for Myrbetriq 50 mg 1 p.o. q.day dispensed 90 with 3 refills 3. If that is not covered by her insurance then maybe she will just have to take the oxybutynin every other day Not available 04/05/2024 16:38:45 Reason for Referral Learning Specialist Referral for Gy necologic examination Please call patient to schedule. Referring Physician: Nancy Dietz Internal Medicine, Encounter Date: 02/02/2024 Production Machinist Referral for Type 2 diabetes mellitus without complication Please call patient to schedule. Referring Physician: Nancy Dietz, Internal Medicine, Encounter Date: 02/02/2024 Urologist Referral for Urina ry incontinence Please call patient to schedule. Referring Physician: Nancy Dietz Internal Medicine, Encounter Date: 02/02/2024 Eligibility And Occupancy Interviewer Referral for C hronic obstructive pulmonary disease Please call patient to schedule. Referring Physician: Nancy Dietz Internal Medicine, Encounter Date: 02/02/2024 Psychiatrist Referral for Mo derate recurrent major depression Please call patient to schedule. Referring Physician: Nancy Dietz Internal Medicine, Encounter Date: 02/02/2024 Stone Dresser Referral for Ch ronic kidney disease Referring Physician: Nancy Dietz Internal Medicine, Encounter Date: 02/16/2024 Learning Specialist Referral for Gy necologic examination Please call patient to schedule. Referring Physician: Nancy Dietz Internal Medicine, Encounter Date: 02/16/2024 Production Machinist Referral for Type 2 diabetes mellitus without complication Please call patient to schedule. Referring Physician: Nancy Dietz Internal Medicine, Encounter Date: 02/16/2024 Urologist Referral for Urina ry incontinence Please call patient to schedule. Referring Physician: Nancy Dietz Internal Medicine, Encounter Date: 02/16/2024 Eligibility And Occupancy Interviewer Referral for C hronic obstructive pulmonary disease Please call patient to schedule. Referring Physician: Nancy Dietz Internal Medicine, Encounter Date: 02/16/2024 Psychiatrist Referral for Mo derate recurrent major depression Please call patient to schedule. Referring Physician: Nancy Dietz Internal Medicine, Encounter Date: 02/16/2024 Results Created Date Observation Date Name Description Value Unit Range Abnormal Flag Note LastModifiedBy Organization Detail LastModifiedTime 08/12/19 22 08/11/2021 CT, abdom en + pelvi s, w/ contr ast No observ ation record ed. [id number] [address], [place], [address], 05/27/2022 03:34:01 08/21/19 23 06/10/2022 XR, hand, 3 or more view No observ ation record ed. [email or web address] Not Available 07/28 10:52:04 02/16/20 24 02/16/2024 XR, hip + pelvi s, bilat eral, 3 or 4 view No observ ation record ed. [facility] [address], [place], [address], 02/16/2024 16:32:52 02/16/20 24 02/16/2024 XR, knee, 4 or more view No observ ation record ed. [facility] [address], [place], [address], 02/16/2024 16:35:24 02/16/20 24 02/16/2024 XR, knee, 4 or more view No observ ation record ed. [email or web address] [facility] [address], [place], [address], 02/17/2024 12:38:51 04/20/19 25 04/20/2024 DEXA, axial skele ton [facility] [address] [place] [address] Patien t Name: ANGELICA ROMERO ion #: [id number] Sex: F : 1955 5 Dictat ed By: Joan Mcknight Attend ing Physic kelton: ESVIN DISLAi Physic kelton: ESVIN DISLA Exam Date: 2024 13:51 PM Exam Name: XR DEXA-H IPS PELVIS SPINE Admitt ing Diagno sis(es ): INDICA TION: screen ing bone densit y, osteop orosis screen ing, postme nopaus al. DEXA SCAN: BONE DENSIT Y REPORT : AP SPINE (L1-L4 ) : T Score: 1.4 LEFT HIP TOTAL : T Score: 0.2 RT HIP TOTAL : T Score: -0.2 TOTAL BILAT HIP AVG: T Score: 0.0 10 YEAR FRACTU RE RISK* Not provid ed IMPRES ISMAEL: 1. Normal bone minera l densit y of the lumbar spine. 2. Normal bone minera l densit y of the bilate ral hips. ------ ------ ------ ------ ------ ------ ------ ------ ----- *FRAX versio n 3.08. Fractu re probab ility calcul ated for an untrea vishal patien t. Fractu re probab ility may be lower if the patien t has receiv ed treatm ent. T-scor e: compar can by con wen (SD) to a young adult popula tion, matche d for sex and ethnic ity (used for postme nopaus al women and men >50 years) and classi fied by WHO criter ia. Page 1 [facility] [address] [place] [address] [phone] Patien t Name: ANGELICA ROMERO ion #: [id number] Sex: F : 1955 5 Dictat ed By: Joan Mcknight Attend ing Physic kelton: RUBY ALVARADO Physic kelton: ESVIN DISLA Exam Date: 2024 13:51 PM Exam Name: XR DEXA-H IPS PELVIS SPINE Admitt ing Diagno sis(es ): -1.0: normal <-1.0 to >-2 .5: osteop enia -2.5: osteop orosis -2.5 plus fragil ity fractu re: severe osteop orosis Z-scor e: compar ed by SD to an age, sex, and ethnic ity popula tion (used for premen opausa l women, men <50 years, and childr en instea d of T-scor e WHO criter ia 4) <-2.0: below expect ed range/ low bone densit y for age, and a cause should be sought Electr onical ly Signed by: Joan Mcknight at 2024 14:05: 24 PM Page 2 INTERFACE [facility] (Imaging) [address] [place], [address], 04/20/2024 15:06:09 04/20/19 25 04/20/2024 scree nat breas t maurizio, bilat GATEMO Y [facility] [address] [place] [address] Patien t Name: ANGELICA ROMERO Access ion #: [id number] Sex: F : 1955 5 Dictat ed By: Joan Mcknight Attend ing Physic kelton: ESVIN DISLA Orderi ng Physic kelton: RUBY ARCHER ESVIN Rose Exam Date: 2024 13:34 PM Exam Name: MG SCRN BREAST MAURIZIO BILAT Admitt ing Diagno sis(es ): PROCED URE: SCREEN ING MAMMOG CHELA WITH TOMOSY NTHESI S REASON FOR EXAM: screen ing mammog chela COMPAR CAN: MG DIGITA L KRAIG BILAT SCREEN 2D on DOS: 05/27/21 , SCREEN ING BREAST MAURIZIO, BILAT 3D on DOS: 8, DIGITA L MAMM, BILAT SCREEN ING 2D on DOS: 06/04/16 TECHNI QUE: Bilate ral CC and MLO views obtain ed. Images were obtain ed using a Digita l Tomosy nthesi s Unit. Standa rd 2D and 3D Tomosy nthesi s images were review ed. This examin ation was analyz ed using Lunit Insigh t DBT/MM G, an AI softwa re develo ped to enhanc e the effect ivenes s of breast cancer screen ing with mammog nino. FINDIN GS: BREAST COMPOS ITION: A - The breast s are almost entire ly fatty. In the right breast , no asymme trical parenc hymal patter n, schuyler ectura l distor tion, pleomo rphic microc alcifi cation s or masses . In the left breast , no asymme trical parenc hymal patter n, schuyler ectura l distor tion, pleomo rphic microc alcifi cation s or masses . IMPRES ISMAEL: No findin gs of malign teodoro. RECOMM ENDATI ON: Recomm end annual mammog chela. Page 1 [facility] [address] [facility] [address] [phone] Patien t Name: ANGELICA ROMERO Access ion #: [id number] Sex: F : 1955 5 Dictat ed By: Joan Mcknight Attend ing Physic kelton: ESVIN Rose GRICELDAELIAZAR ARCHER Ordermichelle ng Physic kelton: ESVIN DISLA Exam Date: 2024 13:34 PM Exam Name: MG NEWBY BREAST MAURIZIO BILAT Admitt ing Diagno sis(es ): ASSESS MENT: BIRADS : 1 - Negati ve Electr onical ly Signed by: Joan Mcknight at 2024 14:07: 15 PM Page 2 INTERFACE [facility] (Imaging) [address] [place], [address], 04/20/2024 15:07:56 04/20/19 25 04/20/2024 DEXA, axial skele ton No observ ation record ed. [facility] [address] [place], [address], 04/20/2024 15:46:26 04/20/19 25 04/20/2024 MAMMO , scree nat, digit al, bilat eral No observ ation record ed. [facility] [address] [place], [address], 04/20/2024 16:23:34 Result Notes None recorded. Problems Name Problem SNOMED Code Status Onset Date Resolution Date Notes Provider Name and Address Organization Details Recorded Time Irritable bowel syndrome 09690035 Active Not Available [facility] 3 03:23:28 Benign essential hypertens ion 7605599 Active Not Available [facility] 3 03:23:28 Burn 469804597 Completed Not Available [facility] 3 03:23:28 Pain of right shoulder joint 56998351503 833613 Active 2021 Not Available [facility] 3 03:23:28 Abnormal weight gain 144716629 Active Not Available [facility] 3 03:23:28 Partial thickness rotator cuff tear 648502126 Active 2020 Not Available [facility] 3 03:23:28 Abdominal pain 23400577 Active Not Available [facility] 3 03:23:28 Gastroeso phageal reflux disease 098843732 Active Not Available [facility] 3 03:23:28 Incisiona l hernia 132654654 Active Not Available [facility] 3 03:23:28 External hemorrhoi ds 49500398 Active Not Available [facility] 3 03:23:28 Screening mammograp hy Active 2021 Not Available [facility] 3 03:23:28 Screening for malignant neoplasm of colon Active 2021 Not Available [facility] 3 03:23:28 Myofascia l pain syndrome of neck 314388613 Active 2021 Not Available [facility] 3 03:23:28 Thoracic back pain 898971293 Completed Not Available [facility] 3 03:23:28 Low back pain 024641318 Completed Nancy rose MD [address] [place] [address], [address], [address] , [facility] 4 12:22:41 Myofascia l pain 009487973 Active 2021 Not Available [facility] 3 03:23:29 Recurrent dislocati on of shoulder region 49628254 Active Not Available [facility] 3 03:23:29 Current tear of medial cartilage AND/OR meniscus of knee Active Not Available [facility] 3 03:23:29 Knee pain Completed Not Available [facility] 3 03:23:29 Pain in left knee Completed Not Available [facility] 3 03:23:29 Dyslipide aurelia 682465425 Active 2017 Not Available [facility] 3 03:23:29 Migraine 85113113 Active Not Available [facility] 3 03:23:29 Osteoarth ritis 545645378 Active Not Available [facility] 3 03:23:29 Umbilical hernia 648815262 Active Not Available [facility] 3 03:23:29 Hypothyro idism 66825094 Active Not Available [facility] 3 03:23:29 Disorder of rotator cuff 273391775 Active Not Available [facility] 3 03:23:29 Herpes zoster 5369602 Completed 201602/25/2017 Not Available [facility] 3 03:23:30 Bradycard ia 17269502 Active Not Available [facility] 3 03:23:30 Hyperlipi demia 24605460 Active 2021 Not Available [facility] 3 03:23:30 Disorder of bursa of shoulder region 94382431 Active Not Available [facility] 3 03:23:30 Derangeme nt of knee 60971958 Active Not Available [facility] 3 03:23:30 Costal chondriti s 62291817 Active Not Available [facility] 3 03:23:30 Snoring 05574278 Active Not Available [facility] 3 03:23:30 Stress 17363045 Active Not Available [facility] 3 03:23:30 Severe anxiety (panic) 02546533 Active Not Available [facility] 3 03:23:30 Neck pain 20254455 Active 2021 Not Available [facility] 3 03:23:30 Spinal stenosis in cervical region 68210283 Active 2020 Not Available [facility] 3 03:23:31 Uterine leiomyoma 08136964 Active Not Available [facility] 3 03:23:31 Essential hypertens ion 87175757 Active 2023 Nancy rose MD [address], [place], [address] , [employer] [facility] [employer] 4 09:35:22 Type 2 diabetes mellitus without complicat ion 159788367 Active 2023 Nancy rose MD [address], [address], [place], [address] , [employer] [facility] [employer] 4 14:18:06 Moderate recurrent major depressio n 26412630 Active 2023 Nancy rose MD [address], [place], [address] , [facility] 4 14:21:05 Chronic obstructi ve pulmonary disease 41769162 Active 2023 Nancy rose MD [address], [place], [address] , [facility] 4 14:22:18 Urinary incontine tne 055438597 Active 2023 Nancy rose MD [address], [address], [place], [address] , [facility] 4 14:45:43 Chronic kidney disease 184842002 Active 2023 Mikel Roberson CMA null, [facility] 4 17:22:04 Low back pain 426393977 Active 2023 Nancy rose MD [address], [place], [address] , [facility] 4 12:22:41 Pain of bilateral knee joints 98950946490 4104 Active 2023 Nancy rose MD [address], [address], [place], [address] , [facility] 4 12:39:26 Bilateral hip joint pain 97911564487 545126 Active 2023 Nancy rose MD [address], [place], [address] , [facility] 4 12:41:35 Osteoarth ritis of knee 524120345 Active 2023 Mikel Roberson CMA null, [place] [facility] 4 12:35:32 Overactiv e urinary bladder 315824104 Active 2023 James Bob MD [address] [facility], [address], [place], [address] , [facility] [employer] [facility] 4 15:51:21 Constipat ion 11926489 Active 2024 James Bob MD [address], [facility] [address], [place], [address] , [facility] [employer] [facility] 5 16:39:00 Notes:Some problems listed i n Document: #[id number] could not be added to this patient's chart. Please review this document and add these problems to the patient's chart manually as needed. Problem Notes None recorded. Procedures Surgical History Date Name Laterality Status Provider Name and Address Organization Details Recorded Time 02/02/20 24 Medicare Wellness CPT Code, subsequent completed Nancy Dietz MD [address], [facility] [address], [place], [address], [employer] 02/02/2024 09:16:34 02/02/20 24 Advanced Care Planning completed Dedrick Mack LPN [employer] [facility] 02/02/2024 14:35:00 04/09/19 22 hernia repair completed Dedrick Mack LPN [employer] 02/16/2024 12:15:28 12/31/19 18 Date of Last Colonoscopy completed Not Available [facility] 05/27/2022 03:15:37 06/03/19 17 Most Recent Bone Density completed Not Available [facility] 05/27/2022 03:15:37 06/22/19 14 Eri arthrs srg bicp tenodsis completed Not Available [facility] 05/27/2022 03:15:41 06/22/19 14 partial claviculectomy completed Not Available [facility] 05/27/2022 03:15:41 Cholecystectomy completed Not Available [facility] 05/27/2022 03:15:41 [facility]end[facility] 03:15:41 Imaging Results Imaging Date Name Status LastModified by Organiz ation Details LastModified Time 08/11/2021 CT, abdomen + pelvis, w/ contrast completed [id number] [address] [place] [address] [address], [place], [address], 05/27/2022 03:34:01 06/10/2022 XR, hand, 3 or more view completed [email or web address] Information not available 08/20/2022 10:52:04 02/16/2024 XR, hip + pelvis, bilateral, 3 or 4 view active [facility] [address], [place], [address], 02/16/2024 16:32:52 02/16/2024 XR, knee, 4 or more view active [facility] [address], [place], [address], 02/16/2024 16:35:24 02/16/2024 XR, knee, 4 or more view active [address] Imaging [address], [place], [address], 02/17/2024 12:38:51 04/20/2024 DEXA, axial skeleton active [facility] (Imaging) [address] [place], [address], 04/20/2024 15:06:09 04/20/2024 screening breast maurizio, bilat active [facility] (Imaging) [address] [place], [address], 04/20/2024 15:07:56 04/20/2024 DEXA, axial skeleton active [facility] [address] [place], [address], 04/20/2024 15:46:26 04/20/2024 MAMMO, screening, digital, bilateral active [facility] [address] [place], [address], 04/20/2024 16:23:34 Procedure Notes None recorded. Medical Equipment None [...] administ ered by the provider 07/17 completed ND: [id number] 4-20 Not Available Not Available Not Available dexametha sone 1 mg tablet TK 1 T AT 11 PM AND THE NEXT MORNING GET AN WHEEL INSTALLER CORTISOL TEST BEFORE 830 AM 06/18 completed [...] e 50 mcg/actua tion nasal spray,saúl pension [place] 2 sprays every day by intranas al [...] completed Not Available Not Available Not Available Brady 3 TK 1T PO QD 06/10 completed Not Available Not Available Not Available lidocaine (PF) 10 mg/mL (1 %) injection solution In office injectio n administ ered by the provider 07/15 completed [facility]: 0409-427 6-17 Not Available Not Available Not Available cetirizin e 10 mg capsule Take 1 capsule every day by oral route. active Not Available Not Available No t Available Suprep Bowel Prep Kit 17.5 gram-3.13 gram-1.6 gram oral solution 02/22 completed Not Available Not Available Not Available Myrbetriq 50 mg tablet,ex tended release Take 1 tablet every day by oral route for 90 days. 2024 active Not Available Not Available Not Avai lable Jardiance 10 mg tablet Take 1 tablet(s ) every day by oral route. 2023 active Not Available Not Available Not Avai lable Fluvirin 7172-3935 45 mcg (15 mcg x 3)/0.5 mL [...] Not Available Not Available No t Available [employer] [facility] Vaccine (PF) 30 mcg/0.3 mL IM [...] saturation in Arterial blood by Pulse oximetry Pain severity - 0-10 verbal numeric rating [Score] - Reported Systolic blood pressure Diastolic blood pressure Provider Name and Address Organization Details Last Updated DateTime 4 170.18 cm 1.3 kg/m2 3628.74 g 98 [degF] 74 /min 16 /min 95 % 95 % 0 122 mm[Hg] 80 mm[Hg] Dedrick Mack LPN [facility] [employer] [facility] 4 14:15:50 Date Recorded Body height Body mass index (BMI) Body weight Body temperature Heart rate Respiratory rate Oxygen saturation Oxygen saturation in Arterial blood by Pulse oximetry Pain severity - 0-10 verbal numeric rating [Score] - Reported Systolic blood pressure Diastolic blood pressure Provider Name and Address Organization Details Last Updated DateTime 4 170.18 cm 32.9 kg/m2 05083.4 g 97.8 [degF] 55 /min 16 /min 96 % 96 % 5 132 mm[Hg] 76 mm[Hg] Dedrick Mack LPN DC [employer] [facility] [employer] [facility] 4 12:10:37 Date Recorded Body height Heart rate Body temperature Body mass index (BMI) Body weight Oxygen saturation Oxygen saturation in Arterial blood by Pulse oximetry Systolic blood pressure Diastolic blood pressure Provider Name and Address Organization Details Last Updated DateTime 4 170.18 cm 76 /min 97.9 [degF] 33.5 kg/m2 10080.7 7 g 97 % 97 % 145 mm[Hg] 91 mm[Hg] Lynn Chan CMA [facility] 14:45:23 Date Recorded Body height Body mass index (BMI) Body weight Provider Name and Address Organization Details Last Updated DateTime 04/05/2024 170.18 cm 33 kg/m2 95364.99 g Lynn Chan CMA [facility] [employer] [facility] 04/05/2024 15:23:34 Date Recorded Body mass index (BMI) Body height Body weight Provider Name and Address Organization Details Last Updated DateTime 05/27/2022 34.3 kg/m2 170.18 cm 53240.73 g Not Available [facility] 05/27/2022 03:20:49 Social History Question Answer Notes LastModified by Organization Details LastModified Time Tobacco Smoking Status Former Smoker Not Available [facility] 05/27/2022 03:10:06 Do You Have An Advance Directive? No MIGRATION.0301 [id number] Information not available 05/27/2022 What Is Your Level Of Alcohol Consumption? Moderate MIGRATION.0301 941600 Information not available 05/27/2022 How Many Years Have You Consumed Alcohol? 40 Information not available 02/02/2024 Do You Wear A Helmet When Biking? No Does Not Back [email or web address] Information not available 02/02/2024 Are You Blind Or Do You Have Difficulty Seeing? No MIGRATION.0301 012146 Information not available 05/27/2022 Is Blood Transfusion Acceptable In An Emergency? Yes [email or web address] Information not available 02/02/2024 What Is Your Level Of Caffeine Consumption? Moderate MIGRATION.0301 380711 Information not available 05/27/2022 How Much Tobacco Do You Chew? None MIGRATION.0301 656615 Information not available 05/27/2022 In The 14 Days Before Symptom Onset, Have You Had Close Contact With A Laboratory-conf irmed COVID-19 While That Case Was Ill? No MIGRATION.0301 761114 Information not available 05/27/2022 In The 14 Days Before Symptom Onset, Have You Had Close Contact With A Person Who Is Under Investigation For COVID-19 While That Person Was Ill? No MIGRATION.0301 414431 Information not available 05/27/2022 Are You Currently Employed? No [email or web address] Information not available 02/02/2024 Are You Deaf Or Do You Have Serious Difficulty Hearing? Yes Patient States She Has Bilateral Hearing Aids Ordered. [email or web address] Information not available 02/02/2024 What Type Of Diet Are You Following? REGULAR MIGRATION.030 678268 Information not available 05/27/2022 Which Illicit Or Recreational Drugs Have You Used? None MIGRATION.030 613696 Information not available 05/27/2022 Do You Or Have You Ever Used E-cigarettes Or Vape? Never Used Electronic Cigarettes MIGRATION.030 400460 Information not available 05/27/2022 What Is The Highest Grade Or Level Of School You Have Completed Or The Highest Degree You Have Received? IE08553-1 MIGRATION.030 805919 Information not available 05/27/2022 What Is Your Occupation? Disabled MIGRATION.030 540127 Information not available 05/27/2022 How Many Days Of Moderate To Strenuous Exercise, Like A Brisk Walk, Did You Do In The Last 7 Days? -1 Information not available 02/02/2024 Have There Been Any Changes To Your Family Or Social Situation? No MIGRATION.030 397102 Information not available 05/27/2022 What Is The Fluoride Status Of Your Home? Unknown MIGRATION.030 167222 Information not available 05/27/2022 When Did You Quit Smoking? 16+yearssincelastc igarette MIGRATION.030 263340 Information not available 05/27/2022 Are There Any Guns Present In Your Home? No MIGRATION.0301 820549 Information not available 05/27/2022 Do You Use Insect Repellent Routinely? No MIGRATION.030 201404 Information not available 05/27/2022 Where Do You Live? SingleLevelHouse MIGRATION.030 525614 Information not available 05/27/2022 Presence Of Domestic Violence No [email or web address] Information not available 02/02/2024 Guns Present In The Home? No [email or web address] Information not available 02/02/2024 Are You Able To Care For Yourself? Yes [email or web address] Information not available 02/02/2024 Are You Blind Or Do Yo Have Difficulty Seeing? No [email or web address] Information not available 02/02/2024 Are You Deaf Or Do You Have Serious Difficulty Hearing? Yes [email or web address] Information not available 02/02/2024 General Stress Level? High Information not available 02/02/2024 Live Alone Of With Others? Alone [email or web address] Information not available 02/02/2024 Do You Have A Medical Power Of Strip Mine Supervisor? No MIGRATION.0301 429277 Information not available 05/27/2022 What Was The Date Of Your Most Recent Tobacco Screening? 05/20/2021 MIGRATION.0301 981120 Information not available 05/27/2022 How Many Children Do You Have? 2 Information not available 02/02/2024 What Is Your Current Pack Years? [email or web address] Information not available 02/02/2024 Have You Ever Been Counseled For Unhealthy Alcohol Use? No MIGRATION.0301 167319 Information not available 05/27/2022 Do You Have Any Pets? Yes Dod, Cat [email or web address] Information not available 02/02/2024 What Is Your Relationship Status? MIGRATION.0301 535327 Information not available 05/27/2022 Do You Use Your Seat Belt Or Car Seat Routinely? Yes MIGRATION.0301 358323 Information not available 05/27/2022 Are You Sexually Active? No Information not available 02/02/2024 Do You Have Smoke And Carbon Monoxide Detectors In Your Home? Yes MIGRATION.0301 550855 Information not available 05/27/2022 At What Age Did You Start Smoking Tobacco? 17 Information not available 02/02/2024 Are You Passively Exposed To Smoke? No MIGRATION.0301 671944 Information not available 05/27/2022 Do You Or Have You Ever Used Smokeless Tobacco? Never Used Smokeless Tobacco MIGRATION.0301 772123 Information not available 05/27/2022 Are There Any Smokers In Your House? No MIGRATION.0301 258805 Information not available 05/27/2022 How Much Tobacco Do You Smoke? No MIGRATION.0301 981626 Information not available 05/27/2022 What Types Of Sporting Activities Do You Participate In? None MIGRATION.0301 658995 Information not available 05/27/2022 Do You Feel Stressed (tense, Restless, Nervous, Or Anxious, Or Unable To Sleep At Night)? [id number] MIGRATION.0301 497670 Information not available 05/27/2022 Do You Use Any Illicit Or Recreational Drugs? No MIGRATION.0301 540363 Information not available 05/27/2022 Do You Use Sunscreen Routinely? No MIGRATION.0301 239456 Information not available 05/27/2022 Has Tobacco Cessation Counseling Been Provided? No MIGRATION.0301 456059 Information not available 05/27/2022 How Many Years Have You Smoked Tobacco? 30 [email or web address] Information not available 02/02/2024 Have You Recently Traveled Abroad? No MIGRATION.0301 133969 Information not available 05/27/2022 Do You Have Any Dietary Restrictions? No MIGRATION.0301 928739 Information not available 05/27/2022 Do You Or Have You Ever Used Any Other Forms Of Tobacco Or Nicotine? No MIGRATION.0301 312711 Information not available 05/27/2022 How Many Days In The Past Year Have You Consumed 4 Or More Drinks? -1 [email or web address] Information not available 02/02/2024 Sex: Female Functional Status Question Answer Note LastModified by Organizat ion Details LastModified Time Do you have difficulty walking or climbing stairs? Yes knee pain MIGRATION.279538 6292 Information not available 05/27/2022 Do you have transportation difficulties? No MIGRATION.301019 2691 Information not available 05/27/2022 Are you able to walk? YESWOREST MIGRATION.154087 0078 Information not available 05/27/2022 Do you have difficulty doing errands alone? No MIGRATION.614873 8040 Information not available 05/27/2022 Are you able to care for yourself? Yes MIGRATION.018452 5625 Information not available 05/27/2022 Do you have difficulty dressing or bathing? No MIGRATION.764853 1958 Information not available 05/27/2022 What is your exercise level? None MIGRATION.992013 2832 Information not available 05/27/2022 Mental Status Question Answer Note LastModified by Organization D etails LastModified Time Do you have difficulty concentrating, remembering or making decisions? Yes [email or web address] Information no t available 02/02/2024 Family History Relationship Description Onset Age of this Age Resolved Age Notes LastModified by Organization Details LastModified Time Father Migraine MIGRATION.583 [id number] Not available 05/27/2022 03:15:47 Father Diabetes mellitus MIGRATION.091 1208354 Not available 05/27/2022 03:15:47 Father Heart disease MIGRATION.721 1225063 Not available 05/27/2022 03:15:47 Father Family history of stroke MIGRATION.320 3878357 Not available 05/27/2022 03:15:47 Mother Diabetes mellitus MIGRATION.775 6088756 Not available 05/27/2022 03:15:47 Mother Cardiomegaly MIGRATION.0 30 0463002 Not available 05/27/2022 03:15:47 Mother Heart disease MIGRATION.801 7141203 Not available 05/27/2022 03:15:47 Mother Family history of stroke MIGRATION.396 8149713 Not available 05/27/2022 03:15:47 Sister Malignant tumor of ovary 55 MIGRATION.584 9845218 Not available 05/27/2022 03:15:47 Sister Diabetes mellitus MIGRATION.348 3013166 Not available 05/27/2022 03:15:47 Sister Family history of malignant neoplasm MIGRATION.194 0413264 Not available 05/27/2022 03:15:47 Brother Diabetes mellitus MIGRATION.651 4099802 Not available 05/27/2022 03:15:47 Brother Family history of stroke MIGRATION.560 4221233 Not available 05/27/2022 03:15:47 Notes:blood clots in legs/claudio ngs Medical History Condition Response NERVE DISEASE N BLINDNESS N RHEUMATIC FEVER N KIDNEY STONES N BLADDER PROBLEMS N OTHER # 1 Y POLIO N LUNG DISEASE/DISORDER N RADIATION / CHEMOTHERAPY N COPD N Other # 2 N BLOOD DISEASES N SURGERY N EAR OR HEARING PROBLEMS N MUMPS N BOWEL PROBLEMS Y DEPRESSION (INCLUDING POST ) N STROKE/TIA N ULCERS N BENIGN PROSTATIC HYPERPLASIA N MEASLES N MYOCARDIAL INFARCTION N OBESITY N GERD/NAUSEA Y ANEURYSM N URINARY/BLADDER/KIDNEY PROBLEMS N INPATIENT PSYCH CARE N CORONARY ARTERY DISEASE (CAD) N ADDICTION CONCERNS N Impotence N ENDOMETRIOSIS [...] N CHRONIC PAIN SYNDROME N HYPOTHYROIDISM Y CONSTIPATION N CAROTID BLOCKAGE N BACK / NECK PROBLEMS Y ATHEROSCLEROSIS [...] quadrivalent, PF 0 completed Deann Tom RMA null, [facility] [employer] 02/02/2024 14:42:38 COVID-19, mRNA, LNP-S, PF, 100 mcg/0.5mL dose or 50 mcg/0.25mL dose 2 completed Deann Tom RMA null, [employer] [facility] [employer] 02/02/2024 14:42:38 COVID-19, mRNA, LNP-S, PF, 30 mcg/0.3 mL dose 1 completed Deann Tom RMA null, [facility] [employer] 02/02/2024 14:42:38 Pneumococcal conjugate PCV20, polysaccharide CQM622 conjugate, adjuvant, PF 4 completed JESSY Paula, [employer] [facility] [employer] 02/02/2024 14:42:38 RSV, recombinant, protein subunit RSVpreF, adjuvant reconstituted, 0.5 mL, PF 4 completed Deann Tom RMA null, [facility] [employer] 02/02/2024 14:42:38 Tdap 7 completed JESSY Paula, [facility] 02/02/2024 14:42:38 Influenza, split virus, trivalent, preservative 7 completed Deann Tom RMA null, [facility] 02/02/2024 14:42:38 COVID-19, mRNA, LNP-S, PF, 100 mcg/0.5mL dose or 50 mcg/0.25mL dose 1 completed Deann Tom RMA null, [facility] 02/02/2024 14:42:38 Tdap 7 completed Not Available [facility] 05/27/2022 03:33:18 Influenza, split virus, quadrivalent, preservative 7 completed Deann Tom RMA null, [facility] 02/02/2024 14:42:38 COVID-19, mRNA, LNP-S, PF, 30 mcg/0.3 mL dose 1 completed Deann Tom RMA null, [facility] 02/02/2024 14:42:38 COVID-19, mRNA, LNP-S, PF, 30 mcg/0.3 mL dose 1 completed Deann Tom RMA null, [facility] 02/02/2024 14:42:38 Influenza, split virus, trivalent, PF 4 completed Deann Tom RMA null, [facility] 02/02/2024 14:42:38 Influenza, high-dose, trivalent, PF 4 completed Nancy Dietz MD [address] [facility], [facility] [address], [place], [address], [facility] 02/14/2024 18:47:56 Past Encounters Encounter ID Performer Location Encounter Start Date Encounter Closed Date Diagnosis/Indication Diagnosis SNOMED-CT Code Diagnosis ICD10 Code Diagnosis Note [id number] [facility] [address], [address] [place] [address] 06/10/2020 00:00:00 06/29/2020 12:41:12 [id number] [facility] [address] [place] [address] 07/02/2020 00:00:00 07/02/2020 16:17:18 [id number] [facility] [address] [place], [place] [address]e., [address] [address] 07/15/2020 00:00:00 07/20/2020 22:43:23 [id number] [facility] [address] [place] [address] 07/30/2020 00:00:00 07/30/2020 15:01:19 [id number] [facility] [address] [place], [place] [address]., [address] [address] 09/09/2020 00:00:00 09/22/2020 16:07:48 [id number] [facility] [address] [place] [address] 09/09/2020 00:00:00 09/09/2020 10:59:03 [id number] [facility] [address] [place] [address] 10/08/2020 00:00:00 10/08/2020 14:52:39 [id number] [facility] [address] [place], [place] [address]., [facility] [address] [place] [address] 10/28/2020 00:00:00 11/17/2020 17:11:55 [id number] [facility] [address] [place] [address] 10/31/2020 00:00:00 10/31/2020 14:12:27 [id number] [facility] [address] [place] [address] 12/31/2020 00:00:00 12/31/2020 15:16:20 [id number] [facility] [address] [place] [address] 01/21/2021 00:00:00 01/21/2021 15:01:50 [id number] [facility] [address] [place] [address] 02/18/2021 00:00:00 02/18/2021 15:36:42 [id number] [facility] [address] [place] [address] 03/27/2021 00:00:00 03/27/2021 11:35:22 [id number] [facility] [address] [place] [address] 05/08/2021 00:00:00 05/08/2021 11:57:20 [id number] [facility] [address] [place] [address] Dr. [facility] [place] [address] 05/20/2021 00:00:00 05/20/2021 21:26:32 [id number] [facility] [address] [place] [address] 06/19/2021 00:00:00 06/19/2021 14:45:55 [id number] [facility] [address] [place] [address] 07/17/2021 00:00:00 07/17/2021 16:02:52 [id number] Nancy rose MD [facility] [address] [facility] [address] [facility] [address] 02/02/2024 13:51:20 02/02/2024 15:05:43 Adult health examination 670564086 Z00.00 Screening for disorder 639787087 Z13.9 Screening - NAD 53319853 3 Z13.9 C-scope: Did get this with Dr Russo in 2022, get the reportMamm ogram: Get this donePAP: Get thisDEXA: Get this Get yearly flu shot, get tdap if not doneCan do pneumococc al vaccines if not doneGet COVID 19 boostersCa n do Shingrix vaccine RTC in 3 months, do labs, ER if worse Screening for osteoporosis 569413332 Z13.820 Gynecologi c examination 38794193 Z01.419 Screening mammography 24 958130 Z12.31 Hypothyroidism 16219789 E03.9 On levothyrox ine 175mcgs dailyGet labs Essential hypertension 94738902 I10 On HCTZ 25mg dailyOn losartan 100mg dailyGet labs Hyperlipidemia 73782974 E78.5 On zetia 10mg dailyGet labs Type 2 omar betes mellitus without complication 485183952 E11.9 On jardiance 10mg dailyGet labs Migraine 61894034 G43.90 9 On Quilipta 60mg dailyOn topiramate 100mg 2 tabs daily, given by Dr Alvarez 08/04/2021 On zolmitript an 5mg daily, given by Dr Alvarez 07/23/[address] Hedrick Moderate r ecurrent major depression 48666656 F33.1 On sertraline 100mg 2 tabs dailyNot suicidal or homicidalW ants a referral to psychiatry , refer to Dr Parsons as she does live in [facility] Chronic ob structive pulmonary disease 76822624 J44.9 Ex smokerOn Carmen ds to see pulmonary Urinary incontinence 165 077393 R32 Wants a referral to urology Administra tion of influenza vaccine 78278107 Z23 [id number] Nancy rose MD [facility] [address] [place] [address] 02/16/2024 11:55:47 02/16/2024 12:42:54 Pain of bilateral knee joints 1308474178 52240 M25.561 M25.562 Get xrays of the knee and hips Bilateral hip joint pain 2954936649 3476088 M25.551 M25.552 S/p fallL>R hip pain, has noted L sided soft tissue swellingGe t on meloxicam as neededNoti fy if not better then may need to see ortho, she is very appreciati ve to this plan of care Essential hypertension 16056338 I10 On HCTZ 25mg dailyOn losartan 100mg dailyGet labs Hyperlipidemia 30732930 E78.5 On zetia 10mg dailyOn lipitor 40mg daily, increase to 80mg dailyGet labs Type 2 omar betes mellitus without complication 756729048 E11.9 On jardiance 10mg dailyGet labs Chronic ki dney disease 129260376 N18.9 Get a referral to nephrology Screening - NAD 82285275 3 Z13.9 C-scope: Did get this with Dr Russo in 2022, get the reportMamm ogram: Get this donePAP: Get thisDEXA: Get this Get yearly flu shot, get tdap if not doneCan do pneumococc al vaccines if not doneGet COVID 19 boostersCa n do Shingrix vaccine RTC in 3 months, do labs, ER if worse Screening for osteoporosis 478467734 Z13.820 Gynecologi c examination 91374219 Z01.419 Screening mammography 24 594620 Z12.31 Hypothyroidism 63322120 E03.9 On levothyrox ine 175mcgs dailyGet labs Migraine 25829278 G43.90 9 On Quilipta 60mg dailyNot on topiramate 100mg 2 tabs daily, given by Dr Alvarez 08/04/2021 On zolmitript an 5mg daily, given by Dr Alvarez 07/23/[address] Hedrick Moderate r ecurrent major depression 24666560 F33.1 On sertraline 100mg 2 tabs dailyNot suicidal or homicidalW ants a referral to psychiatry , refer to Dr Parsons as she does live in [facility] Chronic ob structive pulmonary disease 02698830 J44.9 Ex smokerOn Carmen ds to see pulmonary Urinary incontinence 165 008270 R32 Wants a referral to urology [id number] James Bob MD [facility] [address], [address] [address] 03/03/2024 14:31:06 03/03/2024 15:14:47 Urinary incontinence 513220329 R32 Overactive urinary bladder 952537615 N32.81 [id number] James Bob MD [facility] [address], [address] [address] 04/05/2024 15:13:43 04/06/2024 09:56:05 Overactive urinary bladder 217707812 N32.81 [facility] 32890090 K5 9.00 Health Concerns Section Related Observation LastModified by Organization Detai ls LastModified Time None Recorded Concern Status LastModified by Organization Details LastModified Time None Recorded Advance Directives Directive N: Payers Encounter Date Sequence Insurance Name Policy Number Policy Ji Covered Member ID Ji Member ID Guarantor Name 02/02/2024 1 [place] Angelica [place] [id number] Angelica [place]ros [place] 02/02/2024 2 [employer] (PPO) 111 Angelica [place]ros [place] [id number] Angelica Barros [place] 02/16/2024 1 [place] Angelica [place]ros [place] [id number] Angelica Barros [place] 02/16/2024 2 [employer] [employer] ([place]O) 111 Angelica [place]ros [place] [id number] Angelica Barros [place] 03/03/2024 1 [place] Angelica Barros [place] [id number] 23 Angelica Barros [place] 03/03/2024 2 [employer] [employer] ([place]) 111 Angelica [place]ros [place] [id number] Angelica Barros [place] 04/05/2024 1 [place] Angelica [place]ros [place] [id number] Angelica Barros [place] 04/05/2024 2 [employer] [id number] Angelica Barros [place] [id number] Angelica Romero Notes Date Note Type Note Provider Name and Address Organization Details Recorded Time 02/02/2024 text/html OV 02/02/2024:He re to establish care Present Hx:HTNHLDDMIIDepres sionMigraine Here to discuss above and to get labs Nancy Dietz MD [address] [facility], [address] [address], [place], [address], [place] [employer] 02/14/2024 18:48:44 02/16/2024 text/html OV 02/02/2024:He re to establish care Present Hx:HTNHLDDMIIDepres sionMigraine Here to discuss above and to get [...] also Nancy Dietz MD [address], [place], [address], [employer] 02/16/2024 14:13:56 03/03/2024 text/html this patient has [...] urination James Bob MD [address], [place], [address], [employer] 03/03/2024 15:53:27 04/05/2024 text/html the patient has been taking the oxybutynin she says it has been helping but she is having a lot of constipation. She is having to take a laxative. But she says her urinary symptoms have significantly improved and she is having less bladder leakage unless urinary frequency and urgency James Bob MD [address], [place], [address], [employer] 04/05/2024 16:40:57 OBGyn Episode No OBEpisode recorded.
--- OUTSIDE RECORDS SUMMARY | 2024-05-02 11:01 | XMS_ITS | Clinical Summary ---
Author Organization [facility] Address [address] [address] Phone Care Team Providers Care Screen Printing Loader Unloader Name Role Phone Ifrah Monroe MD Primary Care Provider Unknown, Notinfile Unavailable Unavailable Nelson Hutchison MD Unavailable [phone] Marcelino Richards MD Unavailable [phone] Juni Levy MD Unavailable + Allergies Active [...] by mouth daily Active cholecalciferol (VITAMIN D-3) 78176 unit tablet Take 1 tablet (10,000 Units [...] Take by mouth daily Active vit D3-vit J-ssylebkxp-lmaf [id number] uwnh-vak-mu-mg tablet Take 4 capsules by mouth daily [...] 1 tablet (175 mcg total) by mouth relief map modeler before 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 Assessment & Plan (05/03/2023 5:42 PM MGMT ANALYST): Chronic. Well-controlled in office today. Previously intolerant [...] ezetimibe Assessment & Plan (05/03/2023 8:44 AM MGMT ANALYST): Patient complained of constipation as a side [...] Medicine Assessment & Plan (05/03/2023 5:42 PM MGMT ANALYST): Chronic. Patient has a component of severe sleep apnea with some signs of central sleep apnea on her last sleep study. Assistant Art Director was suggesting that she might actually need [...] Mounjaro Assessment & Plan (05/03/2023 8:42 AM MGMT ANALYST): This was incidentally noted on prior CT scan in September. Given findings of chronic pancreatitis on imaging use of a GLP 1 is contraindicated Atherosclerosis of aorta 10/16/2022 Overview (10/16/2022): Incidental noted on chest x-ray dated 06/25/2022 from [place] Assessment & Plan (11/17/2023 1:51 PM CDT): Incidental on prior imaging. Continue zetia and ASA. Statin intolerant Assessment & Plan (07/09/2023 1:28 PM CDT): Incidental on prior imaging. No signs of progression. Continue risk factor modification as indicates pt at higher risk of CAD/CVA. Continue zetia given statin intolerance Assessment & Plan (05/03/2023 8:42 AM MGMT ANALYST): Incidental on prior imaging. Tight cholesterol control [...] these Assessment & Plan (05/03/2023 8:43 AM MGMT ANALYST): Chronic. Statin intolerant. On ezetimibe. May need [...] medication Assessment & Plan (05/03/2023 5:38 PM MGMT ANALYST): Chronic. Improved on recheck. Continue current prescription [...] (11/17/2023 1:50 PM CDT): See psychiatry at [facility]. Still some mood issues. Continue sertraline. Continue follow up with psychiatry Assessment & Plan (07/02/2023 2:38 PM CDT): Chronic. Needs improvement. Brief supportive counseling provided. Continue sertraline. Patient referred to Psychiatry per her request. Patient was able to contract for safety. Greater than 5 minutes spent on assessment and discussion patient's mental health today Assessment & Plan (05/03/2023 5:38 PM MGMT ANALYST): Chronic. Uncontrolled. Needs improvement. Stressed importance of [...] (11/17/2023 1:50 PM CDT): See psychiatry at [facility]. Still some mood issues. Continue sertraline. Continue follow up with psychiatry Assessment & Plan (07/02/2023 2:38 PM CDT): Chronic. Needs improvement. Continue sertraline as patient would like to see Psychiatry for more definitive evaluation and medication adjustment. Brief supportive counseling was provided Assessment & Plan (05/03/2023 5:38 PM MGMT ANALYST): Chronic. Needs improvement. Increase sertraline Assessment & [...] TSH Assessment & Plan (05/03/2023 5:39 PM MGMT ANALYST): Biochemically euthyroid. Continue levothyroxine. Less likely that [...] today Assessment & Plan (05/03/2023 8:43 AM MGMT ANALYST): Chronic. Encouraged to modify dietary habits and [...] loss Assessment & Plan (05/03/2023 5:40 PM MGMT ANALYST): Chronic. Suboptimally controlled. Patient is not a [...] fatigue Assessment & Plan (05/03/2023 5:41 PM MGMT ANALYST): Chronic. Patient's mental health is poorly controlled [...] flares. Assessment & Plan (05/03/2023 8:44 AM MGMT ANALYST): Chronic. Following with Neurology.. Continue medication care [...] medication Assessment & Plan (05/03/2023 8:44 AM MGMT ANALYST): Work on diet and avoid triggers. Monitor [...] Trelegy. Assessment & Plan (05/03/2023 5:42 PM MGMT ANALYST): Chronic. Follows with pulmonology. 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 Has been recommended management with guided exercise program. Refer back to physical therapy. Stressed importance of continuing regular strengthening exercises for her back, core and legs to help manage this. Previously was not felt to need surgical intervention by salon customer experience specialist over at [facility] Assessment & Plan (09/21/2022 8:02 PM [...] on file Legal Sex Female 7:49 PM MGMT ANALYST Gender Identity Not on file Sexual [...] exists Fall Risk Assessment 11/22/2024 11/23/2023, 11/17/19 DTaP/Tdap/Td Vaccine (3 - Td or Tdap) 12/21/2026 12/21/2016, 12/09/2016 Colon Cancer Screening-Colonoscopy 11/18/2033 11/19/2023 Hepatitis C Screening Completed 09/21/2022 Pneumococcal vaccine 65+ Completed 11/17/2023 Colon Cancer Screening-CT Colonography Discontinued 11/19/2023 Colon Cancer Screening-DNA Stool Discontinued 11/19/19 Colon Cancer Screening-FIT Discontinued 11/19/2023 Colon Cancer [...] EYE EXAM (11/19/2023 2:15 PM CDT) Pathologist [facility] SCRIBED DIABETIC DILATED EYE EXAM Abnormal Historical Provider MD HEALTH MAINTENANCE Final Result * COLONOSCOPY (11/19/2023 1:57 PM CDT) [facility] Scribed Colonoscopy Abnormal Historical Provider HEALTH MAINTENANCE Final Result * POCT hemoglobin A1c (11/17/2023 1:54 PM CDT) [facility] Hemoglobin A1C, POC 6.0 4.0 - 5.6 % Blood spot 11/17/2023 1:54 PM CDT Ifrah Monroe MD POINT OF CARE TEST ORD ERABLES Final Result * (ABNORMAL) eGFR (07/02/2023 12:05 PM CDT) [facility] eGFR 56(L) >=60 mL/min/1. 73 m2 [...] ORDERABLES F inal Result Performing Organization Address [facility] de Phone Number GIAKARIE [address] [address] [place] [address] * Albumin Creatinine Ratio, Urine (07/02/2023 12:05 PM CDT) Albumin Ur <12.0 mg/L Comment: Interpretive Data No reference range established. Current interpretive data was last revised 2018. Creatinine Ur 190.0 mg/dL [facility] Comment: Interpretive Data No reference range established. Current interpretive data was last revised 2018. Albumin Creatinine Ratio, Ur <6 1 - 29 mg/g [facility] Urine 07/02/2023 12:0 5 PM CDT 07/02/2023 9:31 PM CDT Ifrah Monroe MD LAB URINE ORDERABLES F inal Result Performing Organization Address [facility] de Phone Number JOAQUIN [address] [address] of [employer] [place], [place] [id number] * (ABNORMAL) Lipid panel (07/02/2023 12:05 PM [...] on 2017. LDL, calculated 145(H) <=129 mg/dL [facility] Comment: Interpretive Data Ages < or [...] revised on 2017. Non-HDL Cholesterol 173 mg/dL [facility] Comment: Interpretive Data Ages < or [...] last revised on 2017. Chol/HDL ratio 4 [facility] Blood 07/02/2023 12:0 5 PM CDT 07/02/2023 9:30 PM CDT Ifrah Monroe MD LAB BLOOD ORDERABLES F inal Result Performing Organization Address [facility] de Phone Number JOAQUIN [address] [address] [facility] [place] [address] * Hepatitis C antibody (09/21/2022 12:27 PM [...] ERAL ORDERABLES Final Result Performing Organization Address [facility] Phone Number [facility] [address] [address] [facility] [place] [address] from Last 3 Months or Most Recently Relevant to Health Maintenance Insurance MEDICARE [employer] [place] MEDICARE [facility] MEDICARE [facility] [address] [place] [address] MEDICARE [facility] [place] [address] Care Teams Screen Printing Loader Unloader Relationship Specialty Start Date End Date Ifrah Monroe MD PCP - General Family Practice 09/21/22 Unknown, Notinfile 01/02/22 Nelson Hutchison MD [address] [place], [place] [id number] Psychiatry 11/17/23 Marcelino Richards MD [address] [place] [address] Referring Physician Pulmonary Disease 11/17/23 Juni Levy MD [address] GASTROENTEROLOGY [place], [place] [address] Referring Physician Gastroenterology 11/17/23
--- OUTSIDE RECORDS SUMMARY | 2024-05-02 11:01 | XMS_ITS | CONTINUITY OF CARE DOCUMENT ---
Author Name adela chapman Address Unknown Organization [facility] Address [address] [place] [address] Phone [phone] Care Team Providers Care Epic Ambulatory Analysts Name Role Phone Luis Rizo MD Unavailable [phone] JAILYN SENIOR MD Unavailable JAILYN SENIOR MD Unavailable [phone] PROBLEMS Condition Status Date Provider Notes Bradycardia active Tracy Kaur INSURANCE PROVIDERS Payer name Policy type / Coverage type [place] red alliance party ID [facility] [id number] HISTORY OF PROCEDURES Procedure Date Procedure Name Provider Procedure Notes S tatus Leslie, 24 or 48 Jose Giles MD comp leted
--- OUTSIDE RECORDS SUMMARY | 2024-05-02 11:01 | XMS_ITS | Referral Summary ---
Author Organization [facility] Address [address] [place] [address] Care Team Providers Care Project Executive Name Role Phone Marcelino Ahn MD Primary Care Provider [phone] Source Comments [facility],non-owned Affiliates and Associated Physician Practices is amultiple site organization consisting of ambulatory clinics and hospital sitesin [place], [place], [place] and [place]. This disclosure is being madepursuant to the Care Everywhere program and may not contain all information available regarding this patient. Last updated 17.[facility] Allergies No known active allergies Medications * [...] PO PRF MIGRAINE 0 11/23/2017 Active Biotin 03903 MCG TABS biotin Active aspirin (ASPIRIN) 81 [...] 104.8 kg (231 lb) 03/06/2019 2:46 PM BAKING POWDER MIXER Height 170.2 cm (5' 7 ) 03/06/2019 2:46 PM BAKING POWDER MIXER Body Mass Index 36.18 03/06/2019 2:46 PM BAKING POWDER MIXER Plan of Treatment Not on file Care Teams Project Executive Relationship Specialty Start Date End Date Marcelino Ahn MD PCP - General 11/25/17
--- OUTSIDE RECORDS SUMMARY | 2024-05-02 11:01 | XMS_ITS | Clinical Summary ---
Author Organization [facility] Address [address] [place] [address] Care Team Providers Care Riverboat Master Name Role Phone Marcelino Ahn MD Primary Care Provider [phone] Source Comments [facility],non-owned Affiliates and Associated Physician Practices is amultiple site organization consisting of ambulatory clinics and hospital sitesin [place], [place], [place] and [place]. This disclosure is being madepursuant to the Care Everywhere program and may not contain all information available regarding this patient. Last updated 17.[facility] Allergies No known active allergies Medications * [...] PO PRF MIGRAINE 0 11/23/2017 Active Biotin 57819 MCG TABS biotin Active aspirin (ASPIRIN) 81 [...] 104.8 kg (231 lb) 03/06/2019 2:46 PM GLASS CUTTER HELPER Height 170.2 cm (5' 7 ) 03/06/2019 2:46 PM GLASS CUTTER HELPER Body Mass Index 36.18 03/06/2019 2:46 PM GLASS CUTTER HELPER Plan of Treatment Health Maintenance Due Date [...] 09/21/1975 DTAP/TDAP/TD VACCINES (1 - Tdap) 1976 PNEUMOCOCCAL VACCINE 50+ (1 of 1 - PCV) 09/26/2007 ZOSTER VACCINE (1 of 2) 09/26/2007 SCREENING FOR DIABETES 12/17/2017 COVID-19 VACCINE (1 - 2023-2 5 season) 2023 INFLUENZA VACCINE (#1) 2023 7, 01/31/2014 DEPRESSION SCREENING 03/29/2024 Respiratory Syncytial Virus (RSV) Vaccine Pt: or [...] patient's age to complete this topic MENINGOCOCCAL (Group B) VACCINE Aged Out No longer eligible b ased on patient's age to complete this topic MENINGOCOCCAL VACCINE Aged Out No kim melissa eligible based on patient's age to complete this topic Care Teams Riverboat Master Relationship Specialty Start Date End Date Marcelino Ahn MD PCP - General 11/25/17
--- OUTSIDE RECORDS SUMMARY | 2024-05-02 12:49 | XMS_ITS | Referral Summary ---
Author Organization [facility] Address [address] [place] [address] Care Team Providers Care Graphic Design Teacher Name Role Phone Marcelino Ahn MD Primary Care Provider [phone] Source Comments [facility],non-owned Affiliates and Associated Physician Practices is amultiple site organization consisting of ambulatory clinics and hospital sitesin [place], [place], [place] and [place]. This disclosure is being madepursuant to the Care Everywhere program and may not contain all information available regarding this patient. Last updated 17.[facility] Allergies No known active allergies Medications * [...] PO PRF MIGRAINE 0 11/23/2017 Active Biotin 53879 MCG TABS biotin Active aspirin (ASPIRIN) 81 [...] 104.8 kg (231 lb) 03/06/2019 2:46 PM HELPER CHICKEN FARM Height 170.2 cm (5' 7 ) 03/06/2019 2:46 PM HELPER CHICKEN FARM Body Mass Index 36.18 03/06/2019 2:46 PM HELPER CHICKEN FARM Plan of Treatment Not on file Care Teams Graphic Design Teacher Relationship Specialty Start Date End Date Marcelino Ahn MD PCP - General 11/25/17
--- OUTSIDE RECORDS SUMMARY | 2024-05-02 12:49 | XMS_ITS | Clinical Summary ---
Author Organization [facility] Address [address] [place] [address] Care Team Providers Care Cooker Process Cheese Name Role Phone Marcelino Ahn MD Primary Care Provider [phone] Source Comments [employer] [facility],non-owned Affiliates and Associated Physician Practices is amultiple site organization consisting of ambulatory clinics and hospital sitesin [place], [place], [place] and [place]. This disclosure is being madepursuant to the Care Everywhere program and may not contain all information available regarding this patient. Last updated 17.[facility] Allergies No known active allergies Medications * [...] PO PRF MIGRAINE 0 11/23/2017 Active Biotin 93912 MCG TABS biotin Active aspirin (ASPIRIN) 81 [...] 104.8 kg (231 lb) 03/06/2019 2:46 PM COPY CLERK Height 170.2 cm (5' 7 ) 03/06/2019 2:46 PM COPY CLERK Body Mass Index 36.18 03/06/2019 2:46 PM COPY CLERK Plan of Treatment Health Maintenance Due Date [...] age to complete this topic Care Teams Cooker Process Cheese Relationship Specialty Start Date End Date Marcelino Ahn MD PCP - General 11/25/17
--- OUTSIDE RECORDS SUMMARY | 2024-05-02 12:49 | XMS_ITS | CONTINUITY OF CARE DOCUMENT ---
Author Name adela chapman Address Unknown Organization [facility] Address [address] [place] [address] Phone [phone] Care Team Providers Care Software Implementation Specialist Name Role Phone Luis Rizo MD Unavailable [phone] JAILYN SENIOR MD Unavailable JAILYN SENIOR MD Unavailable [phone] PROBLEMS Condition Status Date Provider Notes Bradycardia active Tracy Kaur INSURANCE PROVIDERS Payer name Policy type / Coverage type [place] red libertarian ID [facility] [id number] HISTORY OF PROCEDURES Procedure Date Procedure Name Provider Procedure Notes S tatus Leslie, 24 or 48 Jose Giles MD comp leted
--- OUTSIDE RECORDS SUMMARY | 2024-05-02 12:49 | XMS_ITS | Encounter Summary ---
Author Organization [facility] Address [address] [place] [address] Care Team Providers Care Urogynaecologist Name Role Phone Marcelino Ahn MD Primary Care Provider [phone] Reason for Visit * Reason Comments Refill Request Encounter Details Date Type Department Care Team (Late st Contact Info) Description 06/10/2019 Refill [facility] [address] [place] [phone] Jeremiah Bryson MD [address] [place] [address] Refill Request Social History Tobacco Use [...] unspecified documented in this encounter Care Teams Urogynaecologist Relationship Specialty Start Date End Date Marcelino Ahn MD PCP - General 11/25/17 documented as of this encounter
--- OUTSIDE RECORDS SUMMARY | 2024-05-02 12:49 | XMS_ITS | Encounter Summary ---
Author Organization [employer] [facility] Address [address] [place] [address] [address] [place] [address] Phone Care Team Providers Care Technician Semiconductor Development Name Role Phone Nancy Dietz MD Primary Care Provider [phone] Encounter Details Date Type Department Care Team (Late st Contact Info) Description 02/15/2024 Documentation Only [facility], [address] [place] [address] Provider, MD Ad[facility] [place], [place] [address] Social History Tobacco Use Types Packs/Day Years [...] on filedocumented in this encounter Care Teams Technician Semiconductor Development Relationship Specialty Start Date End Date Nancy Dietz MD [address] [place] [address] PCP - General Internal Medicine 02/04/24 documented as of this encounter
--- OUTSIDE RECORDS SUMMARY | 2024-05-02 12:49 | XMS_ITS | Patient Health Summary ---
Author Organization [facility] Address [address] [place] [address] Care Team Providers Care Microbial Specialist Name Role Phone Marcelino Ahn MD Primary Care Provider [phone] Note from [facility],non-owned Affiliates and Associated Physician Practices is amultiple site organization consisting of ambulatory clinics and hospital sitesin [place], [place], [place] and [place]. This disclosure is being madepursuant to the Care Everywhere program and may not contain all information available regarding this patient. Last updated 17.[facility] [employer] Allergies No known active allergies Medications * [...] 1 T PO PRF MIGRAINE * Biotin 35973 MCG TABS biotin * aspirin (ASPIRIN) 81 [...] 104.8 kg (231 lb) 03/06/2019 2:46 PM FLOOR RUNNER Height 170.2 cm (5' 7 ) 03/06/2019 2:46 PM FLOOR RUNNER Body Mass Index 36.18 03/06/2019 2:46 PM FLOOR RUNNER Procedures * XR LUMBAR SPINE 2 OR [...] SPINE 2 OR 3VW (03/06/2019 2:35 PM FLOOR RUNNER) Only the most recent of2 resultswithin the time period is included. Anatomical Region Laterality Modality Spine Radiographic Jami ging 03/06/2019 2:41 PM FLOOR RUNNER Impressions 03/06/2019 3:48 PM FLOOR RUNNER IMPRESSION: 1. Multilevel degenerative disc and joint disease with unchanged L5-S1 anterolisthesis. 2. Lumbar dextroscoliosis. Dictated by Dean Tang MD (Resident). I, Dr. YAA BUSH M.D. have personally reviewed and interpreted this examination/study. This report was electronically signed by YAA BUSH M.D. ??on 03/06/2019 3:48 PM . Narrative 03/06/2019 3:48 PM FLOOR RUNNER EXAMINATION: XR LUMBAR SPINE 2 OR 3VW [...] Shirley Spaulding PA-C MR ORDERABLES Care Teams Microbial Specialist Relationship Specialty Start Date End Date Marcelino Ahn MD PCP - General 11/25/17
--- OUTSIDE RECORDS SUMMARY | 2024-05-02 12:49 | XMS_ITS | Clinical Summary ---
Author Organization [facility] Address [address] [place] [address]. [place], [place] [address] [place] [address] Care Team Providers Care Change Management Director Name Role Phone Ángel Bishop MD Primary Care Provider [phone] Social History Tobacco Use Types Packs/Day Years Used Date Smoking Tobacco: Never Assessed Comments Unknown Sex and Gender Information Value Date Recorded Sex Assigned at Not on file Legal Sex Female 7:44 PM CDT Gender Identity Not on file Sexual Orientation Not on file Last Filed Vital Signs Vital Sign Reading Time Taken Comments Blood Pressure 136/84 04/27/2013 10:34 AM MIXING TECHNICIAN Pulse 82 04/27/2013 10:34 AM MIXING TECHNICIAN Temperature - - Respiratory Rate - - Oxygen Saturation - - Inhaled Oxygen Concentration - - Weight 99.8 kg (220 lb) 04/27/2013 10:34 AM MIXING TECHNICIAN Height 170.2 cm (5' 7 ) 04/27/2013 10:34 AM MIXING TECHNICIAN Body Mass Index 34.46 04/27/2013 10:34 AM MIXING TECHNICIAN Plan of Treatment Health Maintenance Due Date Last Done Comments Colorectal Cancer Screening Colonoscopy (10 Years) 1957 Hepatitis C 09/26/1975 DTaP, Tdap and Td Vaccines ( 1 - Tdap) 1976 Mammogram Screening 1997 Zoster Vaccines (1 of 2) 09/26/2007 Dexa Scan (General) 2022 Pneumococcal Vaccine: 65+ Ye ars (1 of 1 - PCV) 2022 COVID-19 Vaccine ( - 2023-2 5 season) 2023 Influenza Adult (#1) 2023 RSV Immunization or 60+ Years (1 - 1-dose 75+ series) 2032 Meningococcal B Vaccine Aged Out No l onger eligible based on patient's age to complete this topic Meningococcal Vaccine Aged Out No kim melissa eligible based on patient's age to complete this topic RSV Immunizations Under 20 Months Aged Out No longer eligible based on patient's age to complete this topic Care Teams Change Management Director Relationship Specialty Start Date End Date Ángel Bishop MD PCP - General 04/12/13
--- OUTSIDE RECORDS SUMMARY | 2024-05-02 12:49 | XMS_ITS | Clinical Summary ---
Author Organization [facility] Address [address] [address] Care Team Providers Care Core Shaper Top Name Role Phone Nancy Dietz MD Primary Care Provider [phone] Encounters Date Type Department Care Team Description 02/15/2024 Documentation Only [facility] [employer] [address] [address] [address] [place] [phone] Adonis Pitts MD 02/04/2024 Documentation Only [facility] [employer] [facility] [address] [place] [address] ProviderAdonis MD from Last 3 [...] topic Insurance MEDICARE [facility] Care Teams Core Shaper Top Relationship Specialty Start Date End Date Nancy Dietz MD [address] [place] [address] PCP - General Internal Medicine 02/04/24
--- OUTSIDE RECORDS SUMMARY | 2024-05-02 12:49 | XMS_ITS | Clinical Summary ---
Author Organization [facility] Address [address] [place] [address] Care Team Providers Care Matchbook Assembler Name Role Phone Unavailable Primary Care Provider [...]
--- OUTSIDE RECORDS SUMMARY | 2024-05-02 12:49 | XMS_ITS | Encounter Summary ---
Author Organization [facility] Address [address] [place] [address]. [place] [address] Care Team Providers Care Flag Decorator Name Role Phone Ángel Bishop MD Primary Care Provider [phone] Encounter Details Date Type Department Care Team (Latest Contact Info) Description 02/01/2018 Abstract [facility] , Karla Toth MD [...] on filedocumented in this encounter Care Teams Flag Decorator Relationship Specialty Start Date End Date Ángel Bishop MD PCP - General 04/12/13 documented as of this encounter
--- NOTE | 2024-05-02 12:57 | ED.FALL ---
HPI - Fall General Chief Complaint: Fall Stated Complaint: left rib pain from GLF face first Time Seen by Provider: 05/02/24 12:14 Source: patient Mode of arrival: ambulatory Limitations: no limitations History of Present Illness HPI Narrative: 68-year-old with a history of hypertension, hyperlipidemia here with the complaints of fall yesterday in front of her house. Patient states that she was taking her dog for a walk, all of a sudden her dog took off and she lost her balance and fell forward. She denied any head or neck injuries. No complains of rib pain. She denies having any difficulty breathing or cough. MD complaint: fall Onset (ago): day(s) (1) Fall from: standing Fall witnessed: yes, by bystander Place fall occurred: street Loss of consciousness: none Related Data Home Medications ?Medication ?Instructions ?Recorded ?Confirmed ?Last Taken ?Type brimonidine 0.15 % eye drops 1 drp EACH EYE Q12H 12/10/20 02/22/24 09/09/23 History biotin 10,000 mcg disintegrating 10,000 mcg PO DAILY 06/15/22 02/22/24 09/09/23 History tablet aspirin 81 mg tablet,delayed 81 mg PO DAILY 07/08/22 02/22/24 09/09/23 History release (Adult Aspirin Regimen) ezetimibe 10 mg tablet 10 mg PO DAILY 10/05/22 02/22/24 09/09/23 History empagliflozin 10 mg tablet 10 mg PO DAILY 09/03/23 02/22/24 09/09/23 History (Jardiance) hydrochlorothiazide 25 mg tablet 25 mg PO DAILY 09/03/23 02/22/24 09/09/23 History atorvastatin 80 mg tablet 80 mg PO DAILY 02/16/24 02/22/24 Unknown History benzonatate 200 mg capsule 200 mg PO DAILY PRN cough 02/16/24 02/22/24 Unknown History levothyroxine 175 mcg tablet 175 mcg PO DAILY 02/16/24 02/22/24 Unknown History Allergies Allergy/AdvReac Type Severity Reaction Status Date / Time No Known Allergies Allergy Verified 02/22/24 13:59 Review of Systems Review of Systems: All systems reviewed & are unremarkable except as noted in HPI and below Constitutional: Constitutional: Reports no additional constitutional complaints Eyes: Eyes: Reports no additional eye complaints ENT: Reports system reviewed and no additional complaints, except as documented Cardiovascular: Cardiovascular: Reports as per HPI Respiratory: Respiratory: Reports no additional respiratory complaints Gastrointestinal: Gastrointestinal: Reports no additional gastrointestinal complaints Musculoskeletal: Musculoskeletal: Reports no additional musculoskeletal complaints Neurologic: Reports system reviewed and no additional complaints, except as documented [facility] Past Medical History Medical History Encounter for Pap cervical smear following prior abnormal smear Asthma GERD (gastroesophageal reflux disease) Esophageal stricture Chronic pancreatitis Scoliosis Bulging discs Thyroid disorder Osteoporosis IBS (irritable bowel syndrome) Gestational diabetes Chronic pain syndrome KAYLA (obstructive sleep apnea) Hyperlipidemia Hypertension Hx of migraines Surgical History Surgical History H/O rotator cuff surgery History of appendectomy Hx of cholecystectomy History of incisional hernia repair Laparoscopic 3cm incarcerated incisional hernia repair with mesh, Da Sudha assisted 04/14/22. H/O arthroscopic knee surgery H/O hernia repair (2) Family History Family History Father Family history of cardiovascular disease Diabetes mellitus Hypertension Cerebrovascular accident Mother Family history of cardiovascular disease Diabetes mellitus Hypertension Cerebrovascular accident Sibling Family history of malignant neoplasm of ovary Family history of cardiovascular disease Diabetes mellitus Depression Hypertension Thyroid disorder Cerebrovascular accident Ovarian cancer Grandparent Diabetes mellitus Hypertension Son Depression Daughter Depression Hypertension Other Sleep apnea Social History Social History Social History: Caffeine-coffee/tea Smoking packs per day: 2.5 Smoking cigarettes per day: 50.0 Years smoked: 25 Smoking pack-years: 62.50 Smoking status: Current every day smoker Tobacco type: cigarettes Second hand tobacco smoke exposure: No Smoking end date: 09/01/96 Alcohol intake: never Alcohol use details: occasionally Substance use: never Substance use type: does not use Other substance usage details: twice a week for pain in shoulder. Last use: 04/14/2022 Do You Feel Safe in your Home?: Yes Lack of Transportation: No Lack of Food: Never True Current Housing: I Have Housing Concerned About Future Housing: No Difficulty Paying Gas/Electric Bills: No Difficulty Paying for Meds: No Currently Unemployed: No Education: Associate Degree Difficulty w/ Childcare or Family Care: No Living arrangements: alone Spiritual care concerns: No Exam Narrative: GENERAL: Well-appearing, well-nourished, and in no acute distress. HEAD: Normocephalic, atraumatic. EYES: PERRLA and EOM NECK: Supple. CHEST: Clear to auscultation. No respiratory distress. HEART: Regular rate and rhythm. No murmur heard. Normal peripheral pulses. ABDOMEN: Soft, nontender, nondistended, normal active bowel sounds. EXTREMITIES: Normal range of motion. No edema. SKIN: Warm, dry, no rash. NEURO: No focal deficits. Alert and oriented x3. PSYCH: Normal mood and affect. Course Course Emergency Course: Notified patient about x-rays he. Advised her to take pain medication as prescribed he Vital Signs Vital signs: Vital Signs Temperature 36.8 C 05/02/24 10:34 Pulse Rate 72 05/02/24 10:34 Respiratory Rate 16 05/02/24 10:34 Blood Pressure 151/89 H 05/02/24 10:34 Pulse Oximetry 99 05/02/24 10:34 Oxygen Delivery Room Air 05/02/24 10:34 Temperature 36.8 C 05/02/24 10:34 Pulse Rate 72 05/02/24 10:34 Respiratory Rate 16 05/02/24 10:34 Blood Pressure 151/89 H 05/02/24 10:34 Pulse Oximetry 99 05/02/24 10:34 Oxygen Delivery Room Air 05/02/24 10:34 MDM - Fall Imaging Data Radiologist's impression: ITS Impressions Ribs w/Chest X-Ray 05/02/24 12:34 IMPRESSION: 1. Age-indeterminate left seventh rib fracture. Discharge Plan Discharge Clinical Impression: Chest wall pain Contusion of rib on left side Qualifiers: Encounter type: 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 Qualified Code(s): S20.212A - Contusion of left front wall of thorax, 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 Patient Disposition: Home, Self-Care Condition: Stable Instructions: Contusion in Adults (ED) Patient Language: [place] Prescriptions: New hydrocodone-acetaminophen 5-325 mg tablet 1 tablet PO Q8H PRN (Reason: pain) Qty: 10 0RF No Action Qulipta 60 mg tablet 60 mg PO DAILY Qty: 30 6RF zolmitriptan 5 mg tablet See Rx Instructions .ROUTE .COMPLEX Qty: 36 1RF Rx Instructions: Take 1 tablet by mouth as needed for migraine; no more than 4 per week biotin 10,000 mcg tablet,disintegrating 10,000 mcg PO DAILY aspirin [Adult Aspirin Regimen] 81 mg tablet,delayed release (DR/EC) 81 mg PO DAILY atorvastatin 80 mg tablet 80 mg PO DAILY benzonatate 200 mg capsule 200 mg PO DAILY PRN (Reason: cough) levothyroxine 175 mcg tablet 175 mcg PO DAILY brimonidine 0.15 % drops 1 drp EACH EYE Q12H ezetimibe 10 mg tablet 10 mg PO DAILY hydrochlorothiazide 25 mg tablet 25 mg PO DAILY Jardiance 10 mg tablet 10 mg PO DAILY losartan 100 mg tablet 100 mg PO DAILY Qty: 90 1RF sertraline 100 mg tablet 100 mg PO DAILY Qty: 90 1RF (DME) ASV See Rx Instructions .Route .MEDSUPPLY Qty: 1 0RF Rx Instructions: Rx: Resmed ASV 09/29/14 (EPAP, PSmin, PSmax), size small Resmed AirFit F30i full face mask, tubing, filters and humidifier chamber Dx: G47.39 Trelegy Ellipta 200-62.5-25 mcg blister with device See Rx Instructions .ROUTE .COMPLEX Qty: 60 0RF Dose Instruction: INHALE 1 PUFF ONCE DAILY Rx Instructions: INHALE 1 PUFF ONCE DAILY montelukast 10 mg tablet See Rx Instructions .ROUTE .COMPLEX Qty: 30 6RF Dose Instruction: Take 1 tablet by mouth once daily Rx Instructions: Take 1 tablet by mouth once daily Follow-up/Referrals: J Luis,MD Nancy [Primary Care Provider] - Time of Disposition: 13:07
== END 2024-05-02 13:22 | disposition home or self-care (01) ==
PROVIDERS: Emergency Provider Family Medicine; PCP Internal Medicine
DX: S20.212A Contusion of left front wall of thorax, 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 (principal); R07.89 Other chest pain; S22.32XA Fracture of one rib, left side, 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 for closed fracture; F17.210 Nicotine dependence, cigarettes, uncomplicated; J45.909 Unspecified asthma, uncomplicated; K21.9 Gastro-esophageal reflux disease without esophagitis; G47.30 Sleep apnea, unspecified; E78.5 Hyperlipidemia, unspecified; I10 Essential (primary) hypertension; W01.0XXA Fall on same level from slipping, tripping and stumbling without subsequent striking against object, 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
CPT/HCPCS: 71046; 71110; 99283

== ENCOUNTER 2024-10-25 07:26 | Outpatient (CLI) | payer MEDICARE, OTHER, SELFPAY ==
--- NOTE | ~2024-10-25 | NM_ITS ---
EXAM: NM gastric emptying study DATE: 10/25/2024 13:20 INDICATION: Nausea with vomiting TECHNIQUE: A gastric emptying study was performed using the methodology of Ty WEBB, et al. J Nucl Med 2007; 48:568-572. The patient was given a meal consisting of 2 scrambled eggs labeled with 1.0 m Ci Tc-99m sulfur colloid, 2 slices of toast, two packages of jam, and approximately 120 mL of water. Simultaneous anterior and posterior 1-min images of the abdomen were obtained with the patient supine at multiple time points over a total period of 4 hours. The geometric mean of anterior and posterior views was determined, and the percentage retention was calculated for each time point. COMPARISON: None. FINDINGS: Gastric retention of the radiotracer-labeled meal was 49%, 16%, and 3% at the 1-hour, 2-hour, and 4-h our time points, respectively. With this technique, apparent rapid gastric emptying is suggested by < 30% gastric retention at 1 hour. Delayed gastric emptying is defined by gastric retention of >90% at 1 hour, >60% retention at 2 hours, or >10% retention at 4 hours. IMPRESSION: 1. Normal gastric emptying. Reviewed, dictated and finalized at location A. IMPRESSION: 1. Normal gastric emptying.
--- OUTSIDE RECORDS SUMMARY | 2024-10-25 07:30 | XMS_ITS | Clinical Summary ---
Author Organization [facility] Address [address] [address] Phone Care Team Providers Care C.O.D. Clerk Name Role Phone Ifrah Monroe MD Primary Care Provider Unknown, Notinfile Unavailable Unavailable Nelson Hutchison MD Unavailable [phone] Marcelino Richards MD Unavailable [phone] Juni Levy MD Unavailable + Allergies Active [...] mouth 2 (two) times a day 8 Active brimonidine (ALPHAGAN) 0.15 % ophthalmic solution 1 drop 2 (two) times a day 3 Active aspirin 81 mg enteric coated tablet Take 1 tablet (81 mg total) by mouth daily Active amitriptyline (ELAVIL) 50 mg tablet Take 1.5 tablets (75 mg total) by mouth nightly Active albuterol HFA (PROVENTIL HFA,VENTOLIN HFA,PROAIR HFA) 90 mcg/actuation inhaler Inhale 2 puffs 2 (two) times a day 3 Active biotin 10 mg tablet Take 1 tablet (10 mg total) by mouth daily Active cholecalciferol (VITAMIN D-3) 11727 unit tablet Take 1 tablet (10,000 Units [...] Take 400 mg by mouth daily Active montelukast (SINGULAIR) 10 mg tablet Take 1 tablet (10 mg total) by mouth daily 3 Active benzonatate (TESSALON) 200 mg capsule Take 1 capsule (200 mg total) by mouth 3 (three) times a day 3 Active SUMAtriptan (IMITREX) 100 mg tablet Take 1 tablet (100 mg total) by mouth once as needed 3 Active Qulipta 60 mg tablet Take 1 tablet by mouth daily 4 Active lutein-zeaxanthin 25-5 mg capsule Take by [...] Take by mouth daily Active vit D3-vit Z-pokqkvynx-mmha [phone] qkbc-jyr-jz-mg tablet Take 4 capsules by mouth daily Active sertraline (ZOLOFT) 100 mg tabletIndications: Severe episode of recurrent major depressive disorder, without psychotic features (HCC) Take 1.5 tablets (150 mg total) by mouth daily 135 tablet 1 4 Active levothyroxine (SYNTHROID) 175 mcg tabletIndications: Acquired hypothyroidism Take 1 tablet (175 mcg total) by mouth health care manager before 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 90 tablet 1 4 Active omeprazole (PriLOSEC) 40 mg capsule Take 1 capsule (40 mg total) by mouth daily 4 Active triamcinolone (KENALOG) 0.1 % creamIndications:W asp sting, accidental or unintentional, 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 Apply to affected area 1-2 times daily as needed for up to 2 weeks. Avoid face and groin. 30 g 4 025 Active ondansetron ODT (ZOFRAN-ODT) 4 mg disintegrating tabletIndications: Nausea Take 1 tablet (4 mg total) by mouth every 8 (eight) hours as needed for nausea or vomiting 20 tablet 1 4 Active hydroCHLOROthiazid e (HYDRODIURIL) 25 mg tabletIndications: Essential hypertension Take 1 tablet by mouth once daily 30 tablet 4 Active losartan (COZAAR) 100 mg tabletIndications: Essential hypertension Take 1 tablet by mouth once daily 30 tablet 4 Active ezetimibe (ZETIA) 10 mg tablet Take 1 tablet by mouth once daily 30 tablet 4 Active empagliflozin (Jardiance) 10 mg tabletIndications: Type 2 diabetes mellitus without complication, without long-term current use of insulin (HCC) TAKE 1 TABLET BY MOUTH ONCE DAILY IN THE MORNING 30 tablet 4 Active furosemide 10 mg/mL syringe Active naproxen (NAPROSYN) 500 mg tablet TAKE 1 TABLET BY MOUTH TWICE DAILY NEEDED FOR PAIN. MAY TAKE 1 TABLET WITH ZOMIG AT THE ONSET OF HEADACHE. MAX OF 2 TABS PER DAY. 5 Active oxyBUTYnin XL (DITROPAN-XL) 10 mg 24 hr tablet Take 1 tablet (10 mg total) by mouth daily Active phentermine (ADIPEX-P) 37.5 mg tablet 1 tablet (37.5 mg total) 5 Active traZODone (DESYREL) 50 mg tablet Take 1 tablet (50 mg total) by mouth nightly at bedtime Active tiotropium (SPIRIVA) 18 mcg per inhalation capsule Place 1 puff (1 capsule total) into inhaler and inhale 2 (two) times a day Active QUEtiapine (SEROquel) 100 mg tablet Take 1 tablet (100 mg total) by mouth nightly Active cyclobenzaprine (FLEXERIL) 10 mg tablet TAKE 1 TABLET BY MOUTH ONCE DAILY NEEDED FOR 30 DAYS 5 Active ofloxacin (OCUFLOX) 0.3 % ophthalmic solutionIndication s:Acute bacterial conjunctivitis of both eyes instill 2 drops in both eyes every 4 hours for 2 days, then 2 drops 4 times daily on days 3 through 7 10 mL 5 Active Active Problems Problem Noted Date Diagnosed [...] understanding. Assessment & Plan (05/03/2023 5:42 PM CHILDREN'S LITERATURE PROFESSOR): Chronic. Well-controlled in office today. Previously intolerant [...] ezetimibe Assessment & Plan (05/03/2023 8:44 AM CHILDREN'S LITERATURE PROFESSOR): Patient complained of constipation as a side [...] Medicine Assessment & Plan (05/03/2023 5:42 PM CHILDREN'S LITERATURE PROFESSOR): Chronic. Patient has a component of severe sleep apnea with some signs of central sleep apnea on her last sleep study. Tractor Trailer Operator was suggesting that she might actually need [...] DM/weight loss medications like OzempJorge hernandez Mounjaro Assessment & Plan (05/03/2023 8:42 AM CHILDREN'S LITERATURE PROFESSOR): This was incidentally noted on prior CT scan in September. Given findings of chronic pancreatitis on imaging use of a GLP 1 is contraindicated Atherosclerosis of aorta 10/16/2022 Overview (10/16/2022): Incidental noted on chest x-ray dated 06/25/2022 from [facility] Assessment & Plan (11/17/2023 1:51 PM CDT): Incidental on prior imaging. Continue zetia and ASA. Statin intolerant Assessment & Plan (07/09/2023 1:28 PM CDT): Incidental on prior imaging. No signs of progression. Continue risk factor modification as indicates pt at higher risk of CAD/CVA. Continue zetia given statin intolerance Assessment & Plan (05/03/2023 8:42 AM CHILDREN'S LITERATURE PROFESSOR): Incidental on prior imaging. Tight cholesterol control [...] these Assessment & Plan (05/03/2023 8:43 AM CHILDREN'S LITERATURE PROFESSOR): Chronic. Statin intolerant. On ezetimibe. May need [...] medication Assessment & Plan (05/03/2023 5:38 PM CHILDREN'S LITERATURE PROFESSOR): Chronic. Improved on recheck. Continue current prescription [...] (11/17/2023 1:50 PM CDT): See psychiatry at [facility]. Still some mood issues. Continue sertraline. Continue follow up with psychiatry Assessment & Plan (07/02/2023 2:38 PM CDT): Chronic. Needs improvement. Brief supportive counseling provided. Continue sertraline. Patient referred to Psychiatry per her request. Patient was able to contract for safety. Greater than 5 minutes spent on assessment and discussion patient's mental health today Assessment & Plan (05/03/2023 5:38 PM CHILDREN'S LITERATURE PROFESSOR): Chronic. Uncontrolled. Needs improvement. Stressed importance of [...] (11/17/2023 1:50 PM CDT): See psychiatry at [facility]. Still some mood issues. Continue sertraline. Continue follow up with psychiatry Assessment & Plan (07/02/2023 2:38 PM CDT): Chronic. Needs improvement. Continue sertraline as patient would like to see Psychiatry for more definitive evaluation and medication adjustment. Brief supportive counseling was provided Assessment & Plan (05/03/2023 5:38 PM CHILDREN'S LITERATURE PROFESSOR): Chronic. Needs improvement. Increase sertraline Assessment & [...] TSH Assessment & Plan (05/03/2023 5:39 PM CHILDREN'S LITERATURE PROFESSOR): Biochemically euthyroid. Continue levothyroxine. Less likely that [...] today Assessment & Plan (05/03/2023 8:43 AM CHILDREN'S LITERATURE PROFESSOR): Chronic. Encouraged to modify dietary habits and [...] loss Assessment & Plan (05/03/2023 5:40 PM CHILDREN'S LITERATURE PROFESSOR): Chronic. Suboptimally controlled. Patient is not a [...] fatigue Assessment & Plan (05/03/2023 5:41 PM CHILDREN'S LITERATURE PROFESSOR): Chronic. Patient's mental health is poorly controlled [...] flares. Assessment & Plan (05/03/2023 8:44 AM CHILDREN'S LITERATURE PROFESSOR): Chronic. Following with Neurology.. Continue medication care [...] medication Assessment & Plan (05/03/2023 8:44 AM CHILDREN'S LITERATURE PROFESSOR): Work on diet and avoid triggers. Monitor [...] Trelegy. Assessment & Plan (05/03/2023 5:42 PM CHILDREN'S LITERATURE PROFESSOR): Chronic. Follows with pulmonology. She is under [...] symptoms Assessment & Plan (05/03/2023 5:37 PM CHILDREN'S LITERATURE PROFESSOR): Patient has a degree of chronic lumbar [...] PM CDT): Noted on prior MRI at [facility] a few years ago Spondylolisthesis, lumbar region 01/10/2018 Assessment & Plan (07/02/2023 2:37 PM CDT): Chronic. 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 Has been recommended management with guided exercise program. Refer back to physical therapy. Stressed importance of continuing regular strengthening exercises for her back, core and legs to help manage this. Previously was not felt to need surgical intervention by graphic design specialist over at [facility] Assessment & Plan (09/21/2022 8:02 PM CDT): Grade 2 anterior listhesis of the lumbar spine noted on prior lumbar MRI at [facility] Resolved Problems Problem Noted Date Diagnosed Date Resolved Date Prediabetes 10/09/2022 12/30/2022 Elevated hemoglobin A1c 09/24/202207/2023 Overview (09/24/2022): Fasting glucose was in the [...] trial of Zetia Encounter for hepatitis C nm reening test for low risk patient 09/21/2022 09/21/2022 BURGESS (dyspnea on exertion) 09/21/2022 Assessment & Plan (09/21/2022 8:06 PM CDT): Continue care per pulmonology. Has appointment tomorrow. She is stable on inhalers. Unclear if this was truly related to COVID or something else defer to specialist Encounters Date Type Department Care Team Description 09/24/2024 8:30 AM CDT Office Visit [facility] at [address] [address] Katty Desir, LIDIA Acute bacterial conjunctivitis of both eyes (Primary Dx) from Last 3 Months Immunizations Immunization Administration Dates Next Due Influenza, Quadrivalent, Mara [...] staff should administer the PHQ-9) 0 11/23/2023 PHQ-9 Answer Date Recorded PHQ-9 Total Score 10 11/17/2023 Comments No Sex and Gender Information Value Date Recorded Sex Assigned at Not on file Legal Sex Female 7:49 PM CHILDREN'S LITERATURE PROFESSOR Gender Identity Not on file Sexual Orientation Not on file Obstetrics History Last Filed Vital Signs Vital Sign Reading Time Taken Comments Blood Pressure 125/80 09/24/2024 8:28 AM CDT Pulse 76 09/24/2024 8:28 AM CDT Temperature 36.8 C (98.2 F) 09/24/2024 8:28 AM CDT Respiratory Rate 18 09/24/2024 8:28 AM CDT Oxygen Saturation 97% 09/24/2024 8:28 AM CDT Inhaled Oxygen Concentration - - Weight 92.3 kg (203 lb 8 oz) 09/24/2024 8:28 AM CDT Height 172.7 cm (5' 8) 09/24/2024 8:28 AM CDT Body Mass Index 30.94 09/24/2024 8:28 AM CDT Plan of Treatment Health Maintenance Due Date Last Done Comments Breast Cancer Screening-Mammogram 1955 Osteoporosis Screening-Bone Density Scan 1955 Hepatitis B Screening 09/26/1975 Zoster Vaccine (1 of 2) 09/26/2007 Covid-19 Vaccine (2023-2 5 season) 2023 10/14/2021, 03/13/2021, 05/31/2020, Additional history exists Hemoglobin A1C 05/19/2024 11/17/2023, 02/0 07/2023, 12/30/2022, Additional history exists Albumin Creatinine Ratio, Urine 07/01/2024 Lipid Panel 07/01/2024 07/02/2023, 09/21/2022 eGFR 07/01/2024 07/02/2023, 09/21/2022 Foot Exam 11/16/2024 11/17/2023, 11/17/2023 Well Visit 65+ 11/16/2024 11/17/2023 Dilated Eye Exam 11/18/2024 11/19/2023 Depression Screening 11/22/2024 11/23/2023, 11/17/2023, 11/17/2023, Additional history exists Fall Risk Assessment 11/22/2024 11/23/2023, 11/17/19 24 Influenza Vaccine (#1) 2024 , 05/30/2019, 12/10/2016, Additional history exists DTaP/Tdap/Td Vaccine (3 - Td or Tdap) 12/21/2026 12/21/2016, 12/09/2016 Colon Cancer Screening-Colonoscopy 11/18/2033 11/19/2023 Hepatitis C Screening Completed 09/21/2022 Pneumococcal vaccine 65+ Completed 11/17/2023 Colon Cancer Screening-CT Colonography Discontinued 11/19/2023 Colon Cancer Screening-DNA Stool Discontinued 11/19/19 Colon Cancer Screening-FIT Discontinued 11/19/2023 Colon Cancer Screening-Sigmoidoscopy Discontinued 11/19/2023 Procedures Procedure Name Priority Date/Time Associated Diagnosis Comments DIABETES EYE EXAM Routine 11/19/2023 2:15 PM CDT COLONOSCOPY Routine 11/19/2023 1:57 PM CDT POCT [...] CDT) SCRIBED DIABETIC DILATED EYE EXAM Abnormal us Historical Provider HEALTH MAINTENANCE Final Result * COLONOSCOPY (11/19/2023 1:57 PM CDT) Scribed HM Colonoscopy Abnormal Adonis Pitts MD HEALTH MAINTENANCE Final Result * POCT hemoglobin A1c (11/17/2023 1:54 PM CDT) Hemoglobin A1C, POC 6.0 4.0 - 5.6 % Blood spot 11/17/2023 1:54 PM CDT Ifrah Monroe MD POINT OF CARE TEST ORD ERABLES Final Result * (ABNORMAL) eGFR (07/02/2023 12:05 PM CDT) Pathologist [facility] eGFR 56(L) >=60 mL/min/1. 73 m2 Comment: Interpretive Data Reference Interval Normal >/= 90 mL/min/1.73m2 Mildly decreased* 60 - 89 mL/min/1.73m2 Mildly to moderately decreased 45 - 59 mL/min/1.73m2 Moderately to severely decreased 30 - 44 mL/min/1.73m2 Severely decreased 15 - 29 mL/min/1.73m2 Kidney Failure < 15 mL/min/1.73m2 *Relative to young adult level Estimated glomerular filtration rate is determined by the 2020 CKD-EPI equation recommended by the National Kidney Foundation (A Unifying Approach to GFR Estimation: Recommendations of the NKF-ASK Task Force on Reassessing the Inclusion of Race in Diagnosing Kidney Disease, JASN 202). The CKD-EPI equation should not be used for patients with unstable renal function and has not been validated in children and those over 70. Current interpretive data was last reviewed 2021. Blood 07/02/2023 12:0 5 PM CDT 07/02/2023 10:29 PM CDT Ifrah Monroe MD LAB BLOOD ORDERABLES F inal Result JOAQUIN BRIAN [address] Department [place] [address] * Albumin Creatinine Ratio, Urine [...] MD LAB URINE ORDERABLES F inal Result JOAQUIN [address] Department [place] [address] * (ABNORMAL) Lipid panel (07/02/2023 12:05 PM CDT) Cholesterol 226(H) 30 - 199 mg/dL Comment: Interpretive Data Ages < or = 19 years Acceptable: <170 mg/dL Borderline high: 170-199 mg/dL High: >or= 200 mg/dL Ages > or = 20 years Desirable: <200 mg/dL Borderline high: 200-239 mg/dL High: >or= 240 mg/dL Literature References: 1. Expert Panel on Integrated Guidelines for Cardiovascular Health and Risk Reduction in Children and Adolescents. Pediatrics 2011;128:S213 2. NCEP Expert Panel. Circulation 2004;110:227 Current Interpretive Data was last revised on 2017. Triglycerides 140 <=149 mg/dL JOAQUIN Comment: Interpretive Data Ages < or = 9 years Acceptable: <75 mg/dL Borderline high: 75-99 mg/dL High: >or= 100 mg/dL Ages 10 to 20 years Acceptable: <90 mg/dL Borderline high: 90-129 mg/dL High: >or= 130 mg/dL Ages > or = 20 years Desirable: <150 mg/dL Borderline high: 150-199 mg/dL High: 200-499 mg/dL Very high: >or= 499 mg/dL Literature References: 1. Expert Panel on Integrated Guidelines for Cardiovascular Health and Risk Reduction in Children and Adolescents. Pediatrics 2011;128:S213 2. NCEP Expert Panel. Circulation 2004;110:227 Current Interpretive Data was last revised on 2017. HDL 53 >=40 mg/dL JOAQUIN BRIAN Comment: Interpretive Data Ages < or = 19 years Acceptable: >45 mg/dL Borderline low: 40-45 mg/dL Low: <40 mg/dL Ages > or = 20 years Desirable: >or= 60 mg/dL Low: <40 mg/dL Literature References: 1. Expert Panel on Integrated Guidelines for Cardiovascular Health and Risk Reduction in Children and Adolescents. Pediatrics 2011;128:S213 2. NCEP Expert Panel. Circulation 2004;110:227 Current Interpretive Data was last revised on 2017. LDL, calculated 145(H) <=129 mg/dL JOAQUIN BRIAN Comment: Interpretive Data Ages < or = 19 years Acceptable: <110 mg/dL Borderline high: 110-129 mg/dL High: >or= 130 mg/dL Ages > or = 20 years Optimal: <100 mg/dL Near optimal: 100-129 mg/dL Borderline high: 130-159 mg/dL High: >160 mg/dL Literature References: 1. Expert Panel on Integrated Guidelines for Cardiovascular Health and Risk Reduction in Children and Adolescents. Pediatrics 2011;128:S213 2. NCEP Expert Panel. Circulation 2004;110:227 Current Interpretive Data was last revised on 2017. Non-HDL Cholesterol 173 mg/dL JOAQUIN BRIAN Comment: Interpretive Data Ages < or = 19 years Acceptable: <120 mg/dL Borderline high: 120-144 mg/dL High: >145 mg/dL Ages > or = 20 years When triglycerides are >200 mg/dL, Non-HDL cholesterol is a secondary target of therapy with treatment goals that are 30 mg/dL greater than the LDL cholesterol target. Literature References: 1. Expert Panel on Integrated Guidelines for Cardiovascular Health and Risk Reduction in Children and Adolescents. Pediatrics 2011;128:S213 2. NCEP Expert Panel. Circulation 2004;110:227 Current Interpretive Data was last revised on 2017. Chol/HDL ratio 4 JOAQUIN Blood 07/02/2023 12:0 5 PM CDT 07/02/2023 9:30 PM CDT us Ifrah Monroe MD LAB BLOOD ORDERABLES F inal Result Performing Organization Address [facility] Co de Phone Number JOAQUIN BRIAN [id number] Department [place] [address] * Hepatitis C antibody (09/21/2022 12:27 PM CDT) Hep C Ab Nonreactive Nonreactive JOAQUIN BRIAN Comment: Interpretive Data Nonreactive: Antibodies to HCV not detected. Does NOT exclude the possibility of recent exposure to HCV. Equivocal: Equivocal for HCV antibodies. Supplemental molecular testing will be automatically performed to determine infection status in accordance with current CDC screening recommendations. Reactive: Positive for HCV antibodies. This may represent current or past HCV infection. Supplemental molecular testing will be automatically performed to determine current infection status in accordance with current CDC screening recommendations. Interpretive data was last revised on 2019. Blood 09/21/2022 12:2 7 PM CDT 09/21/2022 6:43 PM CDT Ifrah Monroe MD LAB MICROBIOLOGY - GEN ERAL ORDERABLES Final Result Performing Organization Address [facility] Co de Phone Number GIAKARIE SNEHAL [address] Department [place] [address] from Last 3 Months or Most Recently Relevant to Health [place] [address] MEDICARE FORMERLY [facility] MEDICARE [facility] [place] [address] MEDICARE FORMERLY [facility] MEDICARE [facility] [place] [address] Care Teams C.O.D. Clerk Relationship Specialty Start Date End Date Ifrah Monroe MD PCP - General Family Practice 09/21/22 Unknown, Notinfile 01/02/22 Nelson Hutchison MD [address] [place] [address] Psychiatry 11/17/23 Marcelino Richards MD [address] [place] [address] Referring Physician Pulmonary Disease 11/17/23 Juni Levy MD [address] [place] [address] Referring Physician Gastroenterology 11/17/23
--- OUTSIDE RECORDS SUMMARY | 2024-10-25 07:30 | XMS_ITS ---
Author Organization [facility] ([address]) Address [address] [place] [address] Care Team Providers Care Tire Trucker Name Role Phone Susan Chan [phone] REASON FOR VISIT NO SHOW Encounters Encounter Location Date Provider Diagnosis [facility] [address] [place] [address] 03/16/2024 Susan Chan Plan Of Treatment Next Appt Details Follow Up: 4 Weeks, Reason: Evaluation and Management Progress Notes * Angelica ROMERODOB:1955 ([age] yo F)Acc No.[id number]:03/16/2024 Progress Notes Patient: Angelica GUTIERREZ Provider: Shreya Chan APRN :1955 A ge:68 Y S ex:Female Date:03/16/2024 Address:[facility] [address] [facility] Subjective: * Chief Complaints: * 1 . NO SHOW. * Medical History: Objective: * Vitals: Assessment: Plan: * Treatment: * Follow Up: 4 Weeks (Reason: Evaluation and Management) * Billing Information: * Visit Code: * Procedure Codes: * Electronic signature of TONY Vargas on 10/25/2024 at 07:30 AM CDT Sign off status: Pending * Provider: Shreya Chan APRN Date: 05/17/2023 Generated for Printi ng/Faxing/eTransmitting on: 0 10/25/2024 07:30 AM CDT
--- OUTSIDE RECORDS SUMMARY | 2024-10-25 07:30 | XMS_ITS | Encounter Summary ---
Author Organization [facility] Address [address] [place] [address] Care Team Providers Care Physician Vice President Name Role Phone Ángel Bishop MD Primary Care Provider [phone] Encounter Details Date Type Department Care Team (Latest Contact Info) Description 02/01/[address] [facility] Karla Caal MD Social History Tobacco Use [...] on filedocumented in this encounter Care Teams Physician Vice President Relationship Specialty Start Date End Date Ángel Bishop MD PCP - General 04/12/13 documented as of this encounter
--- OUTSIDE RECORDS SUMMARY | 2024-10-25 07:30 | XMS_ITS | Clinical Summary ---
Author Organization [facility] [employer] [facility] Address [address] [address] [place] [address] Care Team Providers Care Interlocking And Signal Mechanic Name Role Phone Unavailable Primary Care Provider Unavailabl e Medications lidocaine, diphenhydrAMINE, aluminum-magnesi um hydroxide-simeth icone SWISH AND SPIT 5 ML TWICE DAILY. SHAKE WELL. 120 mL 10/04/2023 4:35 PM CDT 10/01/2023 Active Encounters Date Type Department Care Team Description 10/11/2024 External Device Data [facility] Provider, Abstract 10/10/2024 External Device Data [facility] Provider, Abstract 09/19/2024 External Device Data [facility] Provider, Abstract 08/16/2024 External Device Data [facility] Provider, Abstract 08/15/2024 External Device Data [facility] Provider, Abstract [...] Colonography Q 5 years 2002 PNEUMOCOCCAL VACCINE 50+ YEARS (1 of 1 - PCV) 09/26/19 08 ZOSTER VACCINE (1 of 2) 09/26/2007 OSTEOPOROSIS SCREENING 2022 INFLUENZA VACCINE (#1) 2024 RSV VACCINE (60+ or ) (1 - 1-dose 75+ series) 2032 Insurance RX [facility] Medicare Part D RX [employer]) [facility]
--- OUTSIDE RECORDS SUMMARY | 2024-10-25 07:30 | XMS_ITS | Referral Summary ---
Author Organization [facility] Address [address] [place] [address] Phone Care Team Providers Care Truck Terminal Manager Name Role Phone Ifrah Monroe MD Primary Care Provider Unknown, Notinfile Unavailable Unavailable Nelson Hutchison MD Unavailable [phone] Marcelino Richards MD Unavailable [phone] Juni Levy MD Unavailable + Encounters Date Type Department Care Team Description 09/24/2024 8:30 AM CDT Office Visit [facility] at [address] [address] Katty Desir, L[place] Acute bacterial conjunctivitis of both eyes (Primary Dx) from Last 3 Months Allergies Active Allergy [...] by mouth daily Active cholecalciferol (VITAMIN D-3) 43089 unit tablet Take 1 tablet (10,000 Units [...] Take by mouth daily Active vit D3-vit Q-jonckmpgz-nhwe [id number] wipo-bqj-gb-mg tablet Take 4 capsules by mouth daily Active sertraline (ZOLOFT) 100 mg tabletIndications: Severe episode of recurrent major depressive disorder, without psychotic features (HCC) Take 1.5 tablets (150 mg total) by mouth daily 135 tablet 1 4 Active levothyroxine (SYNTHROID) 175 mcg tabletIndications: Acquired hypothyroidism Take 1 tablet (175 mcg total) by mouth 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 Assessment & Plan (05/03/2023 5:42 PM SUPERVISOR SILVERING DEPARTMENT): Chronic. Well-controlled in office today. Previously intolerant [...] ezetimibe Assessment & Plan (05/03/2023 8:44 AM SUPERVISOR SILVERING DEPARTMENT): Patient complained of constipation as a side [...] Medicine Assessment & Plan (05/03/2023 5:42 PM SUPERVISOR SILVERING DEPARTMENT): Chronic. Patient has a component of severe sleep apnea with some signs of central sleep apnea on her last sleep study. Stay Cutter was suggesting that she might actually need [...] a candidate for DM/weight loss medications like Ozempic, Wegovy, Mounjaro Assessment & Plan (05/03/2023 8:42 AM SUPERVISOR SILVERING DEPARTMENT): This was incidentally noted on prior CT scan in September. Given findings of chronic pancreatitis on imaging use of a GLP 1 is contraindicated Atherosclerosis of aorta 10/16/2022 Overview (10/16/2022): Incidental noted on chest x-ray dated 06/25/2022 from [place] [facility] Assessment & Plan (11/17/2023 1:51 PM CDT): Incidental on prior imaging. Continue zetia and ASA. Statin intolerant Assessment & Plan (07/09/2023 1:28 PM CDT): Incidental on prior imaging. No signs of progression. Continue risk factor modification as indicates pt at higher risk of CAD/CVA. Continue zetia given statin intolerance Assessment & Plan (05/03/2023 8:42 AM SUPERVISOR SILVERING DEPARTMENT): Incidental on prior imaging. Tight cholesterol control [...] these Assessment & Plan (05/03/2023 8:43 AM SUPERVISOR SILVERING DEPARTMENT): Chronic. Statin intolerant. On ezetimibe. May need [...] medication Assessment & Plan (05/03/2023 5:38 PM SUPERVISOR SILVERING DEPARTMENT): Chronic. Improved on recheck. Continue current prescription [...] (11/17/2023 1:50 PM CDT): See psychiatry at [facility]. Still some mood issues. Continue sertraline. Continue follow up with psychiatry Assessment & Plan (07/02/2023 2:38 PM CDT): Chronic. Needs improvement. Brief supportive counseling provided. Continue sertraline. Patient referred to Psychiatry per her request. Patient was able to contract for safety. Greater than 5 minutes spent on assessment and discussion patient's mental health today Assessment & Plan (05/03/2023 5:38 PM SUPERVISOR SILVERING DEPARTMENT): Chronic. Uncontrolled. Needs improvement. Stressed importance of [...] (11/17/2023 1:50 PM CDT): See psychiatry at [facility]. Still some mood issues. Continue sertraline. Continue follow up with psychiatry Assessment & Plan (07/02/2023 2:38 PM CDT): Chronic. Needs improvement. Continue sertraline as patient would like to see Psychiatry for more definitive evaluation and medication adjustment. Brief supportive counseling was provided Assessment & Plan (05/03/2023 5:38 PM SUPERVISOR SILVERING DEPARTMENT): Chronic. Needs improvement. Increase sertraline Assessment & [...] TSH Assessment & Plan (05/03/2023 5:39 PM SUPERVISOR SILVERING DEPARTMENT): Biochemically euthyroid. Continue levothyroxine. Less likely that [...] today Assessment & Plan (05/03/2023 8:43 AM SUPERVISOR SILVERING DEPARTMENT): Chronic. Encouraged to modify dietary habits and [...] loss Assessment & Plan (05/03/2023 5:40 PM SUPERVISOR SILVERING DEPARTMENT): Chronic. Suboptimally controlled. Patient is not a [...] fatigue Assessment & Plan (05/03/2023 5:41 PM SUPERVISOR SILVERING DEPARTMENT): Chronic. Patient's mental health is poorly controlled [...] flares. Assessment & Plan (05/03/2023 8:44 AM SUPERVISOR SILVERING DEPARTMENT): Chronic. Following with Neurology.. Continue medication care [...] medication Assessment & Plan (05/03/2023 8:44 AM SUPERVISOR SILVERING DEPARTMENT): Work on diet and avoid triggers. Monitor [...] Trelegy. Assessment & Plan (05/03/2023 5:42 PM SUPERVISOR SILVERING DEPARTMENT): Chronic. Follows with pulmonology. She is under [...] symptoms Assessment & Plan (05/03/2023 5:37 PM SUPERVISOR SILVERING DEPARTMENT): Patient has a degree of chronic lumbar [...] PM CDT): Noted on prior MRI at [facility] a few years ago Spondylolisthesis, lumbar region 01/10/2018 Assessment & Plan (07/02/2023 2:37 PM CDT): Chronic. 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 Has been recommended management with guided exercise program. Refer back to physical therapy. Stressed importance of continuing regular strengthening exercises for her back, core and legs to help manage this. Previously was not felt to need surgical intervention by lean [employer] senior specialist over at [facility] Assessment & Plan (09/21/2022 8:02 PM CDT): Grade 2 anterior listhesis of the lumbar spine noted on prior lumbar MRI at [facility] Resolved Problems Problem Noted Date Diagnosed [...] or something else defer to specialist Immunizations Immunization Administration Dates Next Due Influenza, [...] file Legal Sex Female 7:49 PM SUPERVISOR S[employer]ING DEPARTMENT Gender Identity Not on file Sexual Orientation [...] 09/24/2024 8:28 AM CDT Plan of Treatment Not on [...] (11/19/2023 1:57 PM CDT) Scribed Colonoscopy Abnormal us Historical Provider HEALTH MAINTENANCE Final Result * POCT hemoglobin A1c (11/17/2023 1:54 PM CDT) Pathologist [facility] Hemoglobin A1C, POC 6.0 4.0 - 5.6 % Blood spot 11/17/2023 1:54 PM CDT Ifrah Monroe MD POINT OF CARE TEST ORD ERABLES Final Result * (ABNORMAL) eGFR (07/02/2023 12:05 PM CDT) Pathologist [facility] eGFR 56(L) >=60 mL/min/1. 73 m2 Comment: [...] LAB BLOOD ORDERABLES F inal Result JOAQUIN [address] [place] [address] * Albumin Creatinine Ratio, Urine (07/02/2023 12:05 PM CDT) Pathologist [facility] Albumin Ur <12.0 mg/L Comment: Interpretive Data [...] LAB URINE ORDERABLES F inal Result JOAQUIN [address] [place] [address] * (ABNORMAL) Lipid panel (07/02/2023 12:05 PM [...] revised on 2017. Chol/HDL ratio 4 JOAQUIN BRIAN Blood 07/02/2023 12:0 5 PM CDT 07/02/2023 9:30 PM CDT Ifrah Monroe MD LAB BLOOD ORDERABLES F inal Result JOAQUIN BRIAN [address] [place] [address] * Hepatitis C antibody (09/21/2022 12:27 PM [...] MICROBIOLOGY - GEN ERAL ORDERABLES Final Result JOAQUIN BRIAN [address] [place] [address] from Last 3 Months or Most Recently Relevant to Health [place] [address] MEDICARE [facility] MEDIC[facility] [place] [address] Care Teams Truck Terminal Manager Relationship Specialty Start Date End Date Ifrah Monroe MD PCP - General Family Practice 09/21/22 Unknown, Notinfile 01/02/22 Nelson Hutchison MD [address] [place] [address] Psychiatry 11/17/23 Marcelino Richards MD [address] [place] [address] Referring Physician Pulmonary Disease 11/17/23 Juni Levy MD [address] [place] [address] Referring Physician Gastroenterology 11/17/23
--- OUTSIDE RECORDS SUMMARY | 2024-10-25 07:30 | XMS_ITS ---
Author Organization [facility] [place] ([address]) Address [address] [place] [address] Care Team Providers Care Medication Assistant Name Role Phone Susan Chan [phone] REASON FOR VISIT Consult Headache Problems Problem Type SNOMED Code ICD Code Onset Dates Problem Status W/U Status Risk Notes Problem Chronic migraine without aura, non-intractab le (095915119541 100) Chronic migraine without aura, not intractable, without status migrainosus (G43.709) Active confirmed Problem Migraine with aura, not intractable, without status migrainosus (G43.109) Active confirmed Problem Chronic migraine without aura, non-refractor y (disorder) (776911904355 100) Migraine without aura, not intractable, without status migrainosus (G43.009) Active confirmed Encounters Encounter Location Date Provider Diagnosis [facility] [address] [place] [address] 03/02/2024 Susan Chan Chronic migraine without aura, [...] * Angelica ROMERODOB:1955 ([age] yo F)Acc No.[id number]:03/02/2024 Progress Notes Patient: Angelica GUTIERREZ Provider: Sherya Chan APRN :1955 A ge:68 Y S ex:Female Date:03/02/2024 Address:[address] [place] [address] Subjective: * Chief Complaints: * 1 . Consult Headache. * HPI: * Introduction: HPI: Benjamin Romero, who presented for evaluation of headaches. H eadache History: - Headache Onset:-Headache Description: Prodrome: . Aura: . H eadache phase: . Postdrome: . - Headache Triggers: - Headache Frequency: The patient is currently experiencing Headache days/month and Migraine days/month. A ssociated Factors:-Stress/Mood: Patient denies high levels of stress, anxiety or depression symptoms-Sleep:? Patient denies sleep difficulty, snoring, or restless leg symptoms-Sinus/Allergy: Patient denies allergies or sinus pain-Cervical spine: Patient denies neck pain or myofascial pain - TMJ pain or jaw clenching: Patient denies TMJ pain or bruxism. - Hormones: Patient is postmenopausal. - Medication Overuse: Present/Not present - Caffeine Overuse: Present/Not present - Fluid intake: C urrent/Prior Migraine Treatment:-Current abortive therapy:-Previous failed abortive therapy:-Current preventive therapy:-Previous failed preventive therapy: - Other modalities: Chiropractic, Physical Therapy, Acupuncture, Biofeedback, Migraine devices P revious Imaging: H eadache Scales:MIDAS score: HIT-6 score: . * Mental Health: Depression Screening Scale P HQ-9 score: M ore than 5 minutes in spent in discussion regarding depression screening. Anxiety Screening Scale G AD-7 score:. * ROS: C ONSTITUTIONAL: Positive for P atient denies fevers, chills, sweats, unintended weight loss, loss of appetite, or chronic fatigue. E NT: Positive P atient denies ear fullness or pain or sinus pain. R ESPIRATORY: Positive for P atient denies shortness of breath or wheezing. O PHTHALMOLOGY: Positive for R eviewed and except as mentioned above in the HPI is negative. E NDOCRINOLOGY: Positive for P atient denies heat intolerance, cold intolerance, polyuria, elevated blood sugar, chronic fatigue. C ARDIOLOGY: Positive for P atient denies dizziness, palpitations, or chest pain. G ASTROENTEROLOGY: Positive for P atient denies diarrhea, melena, bloody stools, or abdominal pain. U ROLOGY: Positive for P atient denies urinary incontinence or urinary dysfunction. D ERMATOLOGY: Positive for P atient denies rash or hives. ? N EUROLOGY: Positive for R eviewed and except as mentioned above in the HPI is negative. H EMATOLOGY/LYMPH: Positive for P atient denies history of excessive bruising or bleeding diasthesis. M USCULOSKELETAL: Positive for P atient denies extremity joint pain or swelling. P SYCHOLOGY: Positive for R eviewed and except as discussed above in the HPI is otherwise negative. * Medical History: Objective: * Vitals: * Examination: G eneral examination: General appearance: P leasant, well-developed, no distress.? HEENT: N o papilledema. No tenderness to palpation over bilateral greater occipital or supraorbital nerves. Neck, thyroid : S upple. Heart: R RR, S1-S2, no murmurs, no rubs, no gallops. Lungs: C lear to auscultation and percussion in all lung penny. Neurologic exam: A lert and oriented x 4. Fluent speech. Intact [...] or dysmetria. Gait normal, negative Romberg, intact tandem. Skin: N ormal, no rash, urticaria, angioedema. Back: N o cervical or periscapular trigger points. Normal cervical ROM. Extremities: N o peripheral e shellie. ? Assessment: * Assessment: 1. C hronic migraine without aura, not intractable, without status migrainosus - G43.709 (Primary) 2 . M igraine with aura, not intractable, without status migrainosus - G43.109 3 . M igraine without aura, not intractable, without status migrainosus - G43.009 4 . D rug-induced headache, not elsewhere classified, not intractable - G44.40 5 . M yalgia, unspecified site - M79.10 Plan: * Treatment: * Procedure Codes: G 0444 ANNUAL DEPRESSION SCREENING 5-15 MIN, G8427 DOC MEDS VERIFIED W/[place], [address] PT-FOCUSED HLTH RISK ASSMT * Preventive Medicine: T his was a 60 minute visit with time spent in reviewing prior records/notes, evaluation and management, counseling, and documentation. * Follow Up: 4 Weeks (Reason: Evaluation and Management) * Billing Information: * Visit Code: 25876 Office Visit, New Pt., Level 4. Modifiers: 25 61586 Office Visit, New Pt., Level 5. Modifiers: 25 * Procedure Codes: G0444 ANNUAL DEPRESSION SCREENING 5-15 MIN. G8427 DOC MEDS VERIFIED W/[place]. [address] PT-FOCUSED HLTH RISK ASSMT. * Electronic signature of TONY Vargas on 10/25/2024 at 07:30 AM CDT Sign off status: Pending * Provider: Shreya Chan APRN Date: 05/03/2023 Generated for Rusty dejesus/Mervat/Ghazala on: 0 10/25/2024 07:30 AM CDT History and Physical Notes * HPI (History of Present Illness) Category Sub-Category Detail Notes Category Not es *Introduction HPI: Angelica Romero, who presented for evaluation of [...]
--- OUTSIDE RECORDS SUMMARY | 2024-10-25 07:30 | XMS_ITS | Clinical Summary ---
Author Organization [facility] Address [address] [place] [address] Care Team Providers Care Strike Operations Officer Name Role Phone Ángel Bishop MD Primary Care Provider [phone] Social History Tobacco Use Types Packs/Day Years Used Date Smoking Tobacco: Never Assessed Comments Unknown Sex and Gender Information Value Date Recorded Sex Assigned at Not on file Legal Sex Female 7:44 PM CDT Gender Identity Not on file Sexual Orientation Not on file Last Filed Vital Signs Vital Sign Reading Time Taken Comments Blood Pressure 136/84 04/27/2013 10:34 AM FISHER TERRAPIN Pulse 82 04/27/2013 10:34 AM FISHER TERRAPIN Temperature - - Respiratory Rate - - Oxygen Saturation - - Inhaled Oxygen Concentration - - Weight 99.8 kg (220 lb) 04/27/2013 10:34 AM FISHER TERRAPIN Height 170.2 cm (5' 7) 04/27/2013 10:34 AM FISHER TERRAPIN Body Mass Index 34.46 04/27/2013 10:34 AM FISHER TERRAPIN Plan of Treatment Health Maintenance Due Date Last Done Comments Colorectal Cancer Screening Colonoscopy (10 Years) 1955 Hepatitis C 09/26/1975 DTaP, Tdap and Td Vaccines ( 1 - Tdap) 1976 Mammogram Screening 1997 Pneumococcal Vaccine: 50+ Ye ars (1 of 1 - PCV) 09/26/2007 Zoster Vaccines (1 of 2) 09/26/2007 Dexa Scan (General) 2022 COVID-19 Vaccine ( - 2023-2 5 season) 2023 RSV Immunization or 60+ Years (1 [...] age to complete this topic Care Teams Strike Operations Officer Relationship Specialty Start Date End Date Ángel Bishop MD PCP - General 04/12/13
--- OUTSIDE RECORDS SUMMARY | 2024-10-25 07:31 | XMS_ITS | Continuity of Care Document ---
Author Organization [facility] Address [address] [place] [address] [place] [address] Phone Care Team Providers Care Tire Service Technician Name Role Phone Ángel Bishop MD Unavailable [...] Diagnoses Date Provider Providers Copied on Encounter [facility], [address], [place], [place], [address], [place] tel:[phone] [facility] No Information 4 Dario Neal. [address], [place], [place], [address] , [place]. tel:[phone] [facility], [address], [place], [place], [address], [place] [phone] [facility] No Information 4 Dario Neal. [address], [address], [place], [place], [address] , [place]. [phone] OFFICE/OUTPA TIENT VISIT, EST [facility], [address], [place], [place], [address], [place] tel:[phone] [facility] HTN (chief complaint) Insomnia (chief complaint) Hypothryoi dism (chief complaint) fall (chief complaint) HypothyroidismHyper tension, UnspecifiedInsomnia , OtherDietary surveillance and counseling 3 Dario Neal. [address], [address], [place], [place], [address] , [place]. [phone] Referring Provider: Ángel Bishop, [address], [place], [place], [address]. tel:[phone] [facility], [address], [place], [place], [address], [place] [phone] [facility] No Information 3 Dario Neal. [address], [address], [place], [place], [address] , [place]. tel:[phone] [facility], [address], [place], [place], [address], [place] tel:[phone] [facility] No Information Nov- 3 Dario Neal. [address], [address], [place], [place], [address] , [place]. [phone] OFFICE/OUTPA TIENT VISIT, [facility], [address], [place], [place], [address], [place] tel:[phone] [facility] abdominal pain (chief complaint) Abdominal PainDietary surveillance and counselingHemorrhag e of rectum and anus Nov- 3 Dario Neal. [address], [place], [place], [address] , [place]. [phone] Referring Provider: Faroo[address], [place], [place], [address]. tel:[phone] OFFICE/OUTPA TIENT VISIT, [facility], [address], [place], [place], [address], [place] tel:[phone] [facility] left axillary lymph (chief complaint) hypothryoi dism (chief complaint) heel pain (chief complaint) HypothyroidismMajor depressive affective disorder, single episode, mild degreePain in joint involving ankle and footEnlargement of lymph nodes 3 Dario Neal. [address], [address], [place], [place], [address] , [place]. [phone] Referring Provider: Farooq [address], [place], [place], [address]. tel:[phone] OFFICE/OUTPA TIENT VISIT, [facility], [address], [place], [place], [address], [place] tel:[phone] [facility] Right lower leg pain (chief complaint) HLP (chief complaint) hypothyroi dism (chief complaint) Other and unspecified hyperlipidemiaHypot hyroidismUnspecifie d vitamin d deficiencyCHRONIC PAIN NEC 3 Dario Ross [address], [address], [place], [place], [address] , [place]. tel:[phone] Referring Provider: Ángel Bishop, [address], [place], [place], [address]. tel:[phone] OFFICE/OUTPA TIENT VISIT, EST [facility], [address], [place], [place], [address], [place] tel:[phone] [facility] back pain (chief complaint) Dietary surveillance and counselingSciaticaL umbagoHypothyroidis m Apr-2 2-201 3 Dario Neal. [address], [address], [place], [place], [address] , [place]. tel:[phone] Referring Provider: Farooq Rosenbaum [address], [place], [place], [address]. tel:[phone] OFFICE/OUTPA TIENT VISIT, [facility], [address], [place], [place], [address], [place] tel:[phone] [facility] leg pain (chief complaint) right buttock pain (chief complaint) Dietary surveillance and counselingPain in joint involving lower legSciatica Jun-0 6- 3 Dario Neal. [address], [address], [place], [place], [address] , [place]. tel:[phone] Referring Provider: Farooq Rosenbaum [address], [place], [place], [address]. tel:[phone] OFFICE/OUTPA TIENT VISIT, [facility], [address], [place], [place], [address], [place] tel:[phone] [facility] Knee pain (chief complaint) Pain in joint involving lower leg May-0 6-201 3 Dario Neal. [address], [address], [place], [place], [address] , [place]. tel:[phone] Referring Provider: Farooq Rosenbaum [address], [place], [place], [address]. tel:[phone] PREV VISIT, EST, AGE 40-64 [facility], [address], [place], [place], [address], [place] tel:[phone] [facility] Physical (chief complaint) Headache (chief complaint) Routine Medical ExamDietary surveillance and counselingPain in joint involving lower legDizzinessMajor depressive affective disorder, single episode, mild degreeRoutine Medical Exam 3 Dario Neal. [address], [place], [place], [address] , [place]. tel:[phone] Family History Family Member Type Diagnosis Age At Onset Sister Problem (finding) Cancer, ovarian Father Problem (finding) Migraines Mother Problem (finding) Diabetes mellitus Payers Payer name Insurance type Covered alliance party ID Authoriza tion(s) No Information Social History Type Description Quantity [...] No Information Instructions Date Instruction Additional Infor anabellaion Dietary counseling Related to Di etary surveillance [...]
--- OUTSIDE RECORDS SUMMARY | 2024-10-25 07:31 | XMS_ITS | Patient Health Record ---
Author Organization [facility] [place] ([address]) Address [address] [place] [address] Care Team Providers Care Operations Support Representative Name Role Phone Susan Chan Unavailable [phone] Reason For Referral No Information Problems Problem Type SNOMED Code ICD Code Onset Dates Problem Status W/U Status Risk Notes Problem Chronic migraine without aura, non-refractor y (disorder) (877899476310 100) Migraine without aura, not intractable, without status migrainosus (G43.009) Active confirmed Problem Migraine with aura (1156149) Migraine with aura, not intractable, without status migrainosus (G43.109) Active confirmed Problem Chronic migraine without aura, non-intractab le (752464476497 100) Chronic migraine without aura, not intractable, without status migrainosus (G43.709) Active confirmed Plan Of Treatment No Information Insurance Providers Payer Name Payer Address Payer Phone Subscriber Number Group Number Insured Name Patient Relationship to Insured Coverage Start Date Coverage End Date [employer] (Medicare) Attention Claims [address] [place] [address] [id number] Angelica Cowan Self - patient is the insured [facility] [address] [place] [address] [id number] Angelica Cowan Self - patient is the insured
--- OUTSIDE RECORDS SUMMARY | 2024-10-25 07:31 | XMS_ITS | Patient Health Record ---
Author Organization [facility] Address [address] [place] [address] Care Team Providers Care Signing Teacher Name Role Phone Emanuel Mccormack Unavailable [phone] Reason For Referral No Information Medications Medication SIG (Take, Route, Frequency, Duration) Notes Start Date End Date Status Calcitriol 0.25 MCG 1 capsule Orally Onc e a day; Duration: 90 day(s) 05/03/2024 01/28/2025 Active Lasix 20 MG 1 tablet Orally Once a day; Duration: 90 day(s) 05/03/2024 01/28/2025 Active Ergocalciferol 1.25 MG (79402 UT) 1 capsule Orally every other week; Duration: 60 days 05/31/2024 11/27/2024 Active Calcitriol 0.25 MCG 1 capsule Orally Twi ce a day; Duration: 90 days 2024 09/20/2025 Active Problems Problem Type SNOMED Code ICD Code Onset Dates Problem Status W/U Status Risk Notes Problem Type II diabetes mellitus without complication (665486667) Type 2 diabetes mellitus without complications (E11.9) Active confirmed Problem Hyperlipidemia (61066557) Hyperlipidemia, unspecified (E78.5) Active confirmed Problem Major depression, single episode (90366679) Major depressive disorder, single episode, unspecified (F32.9) Active confirmed Problem Anxiety disorder (581696496) Anxiety disorder, unspecified (F41.9) Active confirmed Problem Gastro-esophageal reflux disease without esophagitis (791303428) Gastro-esophageal reflux disease without esophagitis (K21.9) Active confirmed Problem Renal osteodystrophy (07685416) Renal osteodystrophy (N25.0) Active confirmed Problem Overactive bladder (468886113) Overactive bladder (N32.81) Active confirmed Problem Essential hypertension (I10) Active confirmed Problem Gastroesophageal reflux disease with esophagitis (disorder) (753120700) Gastro-esophageal reflux disease with esophagitis, without bleeding (K21.00) Active confirmed Problem Chronic kidney disease stage 3A (disorder) (371600332) Chronic kidney disease, stage 3a (N18.31) Active confirmed Encounters Encounter Location Date Provider Diagnosis [facility] [address] [place] [address] 03/01/2024 Emanuel Mccormack Chronic kidney disea se, stage 3 unspecified N18.30 ; Type 2 diabetes mellitus without complications E11.9 ; Essential hypertension I10 and Gastro-esophageal reflux disease without esophagitis K21.9 [facility] [address] [place] [address] 03/15/2024 Emanuel Mccormack Stage 3 chronic kidn ey disease N18.30 ; Essential hypertension I10 and Renal osteodystrophy N25.0 [facility] [address] [place] [address] 04/19/2024 Emanuel Mccormack Chronic kidney disea se, stage 3 unspecified N18.30 ; Type 2 diabetes mellitus without complications E11.9 ; Major depressive disorder, single episode, unspecified F32.9 ; Anxiety disorder, unspecified F41.9 and Gastro-esophageal reflux disease with esophagitis, without bleeding K21.00 [facility] [address] [place] [address] 05/03/2024 Emanuel Mccormack Chronic kidney disea se, stage 3 unspecified N18.30 ; Type 2 diabetes mellitus without complications E11.9 ; Essential hypertension I10 ; Major depressive disorder, single episode, unspecified F32.9 and Anxiety disorder, unspecified F41.9 [facility] [address] [place] [address] 05/31/2024 Emanuel Mccormack Chronic kidney disea se, stage 3 unspecified N18.30 ; Type 2 diabetes mellitus without complications E11.9 ; Essential hypertension I10 ; Gastro-esophageal reflux disease without esophagitis K21.9 ; Renal osteodystrophy N25.0 ; Major depressive disorder, single episode, unspecified F32.9 ; Anxiety disorder, unspecified F41.9 ; Gastro-esophageal reflux disease with esophagitis, without bleeding K21.00 ; Hyperlipidemia, unspecified E78.5 and Overactive bladder N32.81 [facility] [address] [address] 08/25/2024 Emanuel Mccormack Chronic kidney disea se, stage 3a N18.31 ; Type 2 diabetes mellitus without complications E11.9 ; Essential hypertension I10 ; Gastro-esophageal reflux disease without esophagitis K21.9 ; Renal osteodystrophy N25.0 ; Major depressive disorder, single episode, unspecified F32.9 ; Anxiety disorder, unspecified F41.9 ; Gastro-esophageal reflux disease with esophagitis, without bleeding K21.00 ; Hyperlipidemia, unspecified E78.5 and Overactive bladder N32.81 [place] [facility] [address] [address] 05/03/2024 Emanuel [facility] [address] [address] 05/31/2024 Emanuel [facility] [address] [address] 2024 Emanuel Mccormack Assessments Encounter Date Diagnosis (ICD Code) Assessment Notes Treatment Notes Treatment Clinical Notes Section Notes 03/01/2024 Type 2 diabetes mellitus without complications (ICD-10 - E11.9) 03/01/2024 Chronic kidney disease, stage 3 unspecified (ICD-10 - N18.30) 03/15/2024 Essential hypertension (ICD-10 - I10) 03/15/2024 Stage 3 chronic kidney disease (ICD-10 - N18.30) 04/19/2024 Type 2 diabetes mellitus without complications (ICD-10 - E11.9) 04/19/2024 Chronic kidney disease, stage 3 unspecified (ICD-10 - N18.30) 05/03/2024 Chronic kidney disease, stage 3 unspecified (ICD-10 - N18.30) 05/31/2024 Type 2 diabetes mellitus without complications (ICD-10 - E11.9) 05/31/2024 Chronic kidney disease, stage 3 unspecified (ICD-10 - N18.30) 08/25/2024 Chronic kidney disease, stage 3a (ICD-10 - N18.31) 08/25/2024 Type 2 diabetes mellitus without complications (ICD-10 - E11.9) 05/31/2024 Essential hypertension (ICD-10 - I10) 03/01/2024 Essential hypertension (ICD-10 - I10) 05/03/2024 Type 2 diabetes mellitus without complications (ICD-10 - E11.9) 04/19/2024 Major depressive disorder, single episode, unspecified (ICD-10 - F32.9) 03/15/2024 Renal osteodystrophy (ICD-10 - N25.0) 03/01/2024 Gastro-esophageal reflux disease without esophagitis (ICD-10 - K21.9) 04/19/2024 Anxiety disorder, unspecified (ICD-10 - F41.9) 05/03/2024 Essential hypertension (ICD-10 - I10) 05/31/2024 Gastro-esophageal reflux disease without esophagitis (ICD-10 - K21.9) 08/25/2024 Essential hypertension (ICD-10 - I10) 08/25/2024 Gastro-esophageal reflux disease without esophagitis (ICD-10 - K21.9) 05/31/2024 Renal osteodystrophy (ICD-10 - N25.0) 05/03/2024 Major depressive disorder, single episode, unspecified (ICD-10 - F32.9) 04/19/2024 Gastro-esophageal reflux disease with esophagitis, without bleeding (ICD-10 - K21.00) 05/03/2024 Anxiety disorder, unspecified (ICD-10 - F41.9) 05/31/2024 Major depressive disorder, single episode, unspecified (ICD-10 - F32.9) 08/25/2024 Renal osteodystrophy (ICD-10 - N25.0) 08/25/2024 Major depressive disorder, single episode, unspecified (ICD-10 - F32.9) 05/31/2024 Anxiety disorder, unspecified (ICD-10 - F41.9) 05/31/2024 Gastro-esophageal reflux disease with esophagitis, without bleeding (ICD-10 - K21.00) 08/25/2024 Anxiety disorder, unspecified (ICD-10 - F41.9) 08/25/2024 Gastro-esophageal reflux disease with esophagitis, without bleeding (ICD-10 - K21.00) 05/31/2024 Hyperlipidemia, unspecified (ICD-10 - E78.5) 08/25/2024 Hyperlipidemia, unspecified (ICD-10 - E78.5) 05/31/2024 Overactive bladder (ICD-10 - N32.81) 08/25/2024 Overactive bladder (ICD-10 - N32.81) Plan Of Treatment Next Appt Details Provider Name:Emanuel Mccormack , 10/27/2024 02:15:00 PM, [address] [facility], [facility] [address], [place], [address],
--- OUTSIDE RECORDS SUMMARY | 2024-10-25 07:31 | XMS_ITS ---
Author Organization [facility] Address [address] [facility] [address] [facility] [[email or web address] [address] [place] [address] Care Team Providers Care Machine Erector Name Role Phone Kamaljit Mccormackjit Unavailable [phone] Encounters Encounter Location Date Provider Diagnosis [place] [address] [facility] [address] [place] [address] 08/23/2024 Emanuel Mccormack Plan Of Treatment Next Appt Details Provider Name:Emanuel Easton , 10/27/2024 02:15:00 PM, [address] [facility], [address], [place], [address], Progress Notes * Angelica ROMERODOB:1955 ([age] yo F)Acc No.[id number]:08/23/2024 Progress Notes Patient: Angelica GUTIERREZ Provider: Gonzalez WANG MD, Ivania.Matilda.C.P, F.A.S.N. :1955 A ge:68 Y S ex:Female Date:08/23/2024 Address:[address] [place] [address] [facility] Subjective: * Chief Complaints: * * Medical History: Objective: * Vitals: Assessment: Plan: * Treatment: * Billing Information: * Visit Code: * Procedure Codes: * Electronic signature of Ernie Mccormack MD on 10/25/2024 at 07:31 AM CDT Sign off status: Pending * Provider: Gonzalez WANG MD, Ivania.Matilda.C.P, F.A.S.N. Date: 08/23/2024 Generated for Printing/Faxing/eTransmitting on: 10/25/2024 07:31 AM CDT
--- OUTSIDE RECORDS SUMMARY | 2024-10-25 07:32 | XMS_ITS ---
Author Organization [facility] Address [address] [place] [address] Care Team Providers Care Research Professor Name Role Phone Emanuel Mccormack Unavailable [phone] Problems Problem Type SNOMED Code ICD Code Onset Dates Problem Status W/U Status Risk Notes Problem Chronic kidney disease stage 3A (disorder) (034565894) Chronic kidney disease, stage 3a (N18.31) Active confirmed Encounters Encounter Location Date Provider Diagnosis [facility] [address]43 [facility] [address] [place] [address] 08/25/2024 Emanuel Mccormack Chronic kidney disease, stage 3a N18.31 ; Type 2 diabetes mellitus without complications E11.9 ; Essential hypertension I10 ; Gastro-esophageal reflux disease without esophagitis K21.9 ; Renal osteodystrophy N25.0 ; Major depressive disorder, single episode, unspecified F32.9 ; Anxiety disorder, unspecified F41.9 ; Gastro-esophageal reflux disease with esophagitis, without bleeding K21.00 ; Hyperlipidemia, unspecified E78.5 and Overactive bladder N32.81 Assessments Encounter Date Diagnosis (ICD Code) Assessment Notes Treatment Notes Treatment Clinical Notes Section Notes 08/25/2024 Chronic kidney disease, stage 3a (ICD-10 - N18.31) 08/25/2024 Type 2 diabetes mellitus without complications (ICD-10 - E11.9) 08/25/2024 Essential hypertension (ICD-10 - I10) 08/25/2024 Gastro-esophageal reflux disease without esophagitis (ICD-10 - K21.9) 08/25/2024 Renal osteodystrophy (ICD-10 - N25.0) 08/25/2024 Major depressive disorder, single episode, unspecified (ICD-10 - F32.9) 08/25/2024 Anxiety disorder, unspecified (ICD-10 - F41.9) 08/25/2024 Gastro-esophageal reflux disease with esophagitis, without bleeding (ICD-10 - K21.00) 08/25/2024 Hyperlipidemia, unspecified (ICD-10 - E78.5) 08/25/2024 Overactive bladder (ICD-10 - N32.81) Plan Of Treatment Next Appt Details Provider Name:Emanuel Mccormack , 10/27/2024 02:15:00 PM, 2043 [facility], [facility] [address], [place], [address], Progress Notes * Angelica ROMERODOB:1955 ([age] yo F)Acc No.[id number]:08/25/2024 Progress Notes Patient: Angelica GUTIERREZ Provider: Gonzalez WANG MD, F.Matilda.C.P, F.A.S.N. :1955 A ge:68 Y S ex:Female Date:08/25/2024 Address:[address] [place] [address] [facility] Subjective: * Chief Complaints: * * Medical History: Objective: * Vitals: Assessment: * Assessment: 1. C hronic kidney disease, stage 3a - N18.31 (Primary) 2 . T ype 2 diabetes mellitus without complications - E11.9 3 . E ssential hypertension - I10 ? 4 . G sarmad-esophageal reflux disease without esophagitis - K21.9 5 . Renal osteodystrophy - N25.0 6 . M ajor depressive disorder, single episode, unspecified - F32.9 7 . A nxiety disorder, unspecified - F41.9 ?8. G sarmad-esophageal reflux disease with esophagitis, without bleeding - K21.00 9. H yperlipidemia, unspecified - E78.5 1 0. O veractive bladder - N32.81 Plan: * Treatment: * Billing Information: * Visit Code: 17474 Office Visit, Est Pt., Level 4. * Procedure Codes: * Electronic signature of Ernie Mccormack MD on 10/25/2024 at 07:31 AM CDT Sign off status: Pending * Provider: Gonzalez WANG MD, Ivania.Matilda.C.P, F.A.S.N. Date: 0 08/25/2024 Generated for Printing/Faxing/eTransmitting on: 0 10/25/2024 07:31 AM CDT
--- OUTSIDE RECORDS SUMMARY | 2024-10-25 07:32 | XMS_ITS | Encounter Summary ---
Author Organization [facility] Address [address] [facility] [place] [address] Care Team Providers Care Change Management Director Name Role Phone Marcelino Ahn MD Primary Care Provider [phone] Reason for Visit * Reason Comments Refill Request Encounter Details Date Type Department Care Team (Late st Contact Info) Description 06/10/2019 Refill [facility] - Orthopedics [address] [place] [phone] Jeremiah Bryson MD [facility] [place] [phone] Refill Request Social History Tobacco Use Types Packs/Day Years Used Date Smoking Tobacco: Former Cigarettes Smokeless Tobacco: Never Comments No Sex and Gender Information Value Date Recorded Sex Assigned at Not on file Legal Sex Female 11:45 AM CDT Gender Identity Not on file Sexual Orientation Not on file documented as of this encounter Plan of Treatment Not on file documented as of this encounter Visit Diagnoses Diagnosis Lumbar spondylosis Lumbosacral spondylosis without myelopathy Spondylolisthesis, lumbar region 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
--- OUTSIDE RECORDS SUMMARY | 2024-10-25 07:32 | XMS_ITS ---
Author Organization [facility] ([address]) Address [address] [place] [address] Care Team Providers Care Sound Truck Operator Name Role Phone Susan Chan Unavailable [phone] REASON FOR VISIT Consult Headache Encounters Encounter Location Date Provider Diagnosis [facility] [address] [place] [address] 04/20/2024 Susan Chan Chronic migraine without aura, not intractable, without status migrainosus G43.709 ; Migraine with aura, not intractable, without status migrainosus G43.109 ; Migraine without aura, not intractable, without status migrainosus G43.009 ; Drug-induced headache, not elsewhere classified, not intractable G44.40 and Myalgia, unspecified site M79.10 Assessments Encounter Date Diagnosis (ICD Code) Assessment Notes Treatment Notes Treatment Clinical Notes Section Notes 04/20/2024 Chronic migraine without aura, not intractable, without status migrainosus (ICD-10 - G43.709) 04/20/2024 Migraine with aura, not intractable, without status migrainosus (ICD-10 - G43.109) 04/20/2024 Migraine without aura, not intractable, without status migrainosus (ICD-10 - G43.009) 04/20/2024 Drug-induced headache, not elsewhere classified, not intractable (ICD-10 - G44.40) 04/20/2024 Myalgia, unspecified site (ICD-10 - M79.10) Plan Of Treatment Next Appt Details Follow Up: 4 Weeks, Reason: Evaluation and Management Progress Notes * Angelica ROMERODOB:1955 ([age] yo F)Acc No.[id number]:04/20/2024 Progress Notes Patient: Angelica GUTIERREZ Provider: Shreya Chan APRN :1955 A ge:68 Y S ex:Female Date:04/20/2024 Address:[address] [place] [address] Subjective: * Chief Complaints: * 1 . Consult Headache. * HPI: * Introduction: HPI: Benjamin Romero, with a history of HTN, HLD, DM2, hypothyroidism and depression, who presented for evaluation of headaches. H [...] Fluid intake: C urrent/Prior Migraine Treatment:-Current abortive therapy: - Previous failed abortive therapy: sumatriptan, zolmitriptan-Current preventive therapy:-Previous failed preventive therapy: amitriptyline, topamax, Qulipta, Aimovig - Other modalities: Chiropractic, Physical Therapy, Acupuncture, [...] G8427 DOC MEDS VERIFIED W/[place], [address] PT-FOCUSED HLTH RISK ASSMT * Preventive Medicine: T his was a 60 minute visit with time spent in reviewing prior records/notes, evaluation and management, counseling, and documentation. * Follow Up: 4 Weeks (Reason: Evaluation and Management) * Billing Information: * Visit Code: 82705 Office Visit, New Pt., Level 4. Modifiers: 25 [address]09[address] Office Visit, New Pt., Level 5. Modifiers: 25 * Procedure Codes: G0444 ANNUAL DEPRESSION SCREENING 5-15 MIN. G8427 DOC MEDS VERIFIED W/[place]. [address] PT-FOCUSED HLTH RISK ASSMT. * Electronic signature of TONY Vargas on 10/25/2024 at 07:32 AM CDT Sign off status: Pending * Provider: Shreya Chan, TAX TECHNICIAN Date: 04/20/2024 Generated for Rusty dejesus/Mervat/Ghazala on: 10/25/2024 07:32 AM CDT History and Physical Notes * HPI (History of Present Illness) Category Sub-Category Detail Notes Category Not es *Introduction HPI: Angelica Romero, with a history of HTN, HLD, DM2, hypothyroidism and depression, who presented for evaluation of headaches. Headache History: -Headache Onset:-Headache Description: Prodrome: . Aura: . Headache phase: . Postdrome: . -Headache Triggers: -Headache Frequency: The patient is currently experiencing Headache days/month and Migraine days/month. Associated Factors:-Stress/Mood: Patient denies high levels of stress, anxiety or depression symptoms-Sleep: Patient denies sleep difficulty, snoring, or restless leg symptoms-Sinus/Allergy: Patient denies allergies or sinus pain-Cervical spine: Patient denies neck pain or myofascial pain -TMJ pain or jaw clenching: Patient denies TMJ pain or bruxism. -Hormones: Patient is postmenopausal. -Medication Overuse: Present/Not present -Caffeine Overuse: Present/Not present -Fluid intake: Current/Prior Migraine Treatment:-Current abortive therapy: -Previous failed abortive therapy: sumatriptan, zolmitriptan-Current preventive therapy:-Previous failed preventive therapy: amitriptyline, topamax, Qulipta, Aimovig -Other modalities: Chiropractic, Physical Therapy, Acupuncture, Biofeedback, Migraine devices Previous Imaging: Headache Scales:MIDAS score: HIT-6 score: *Mental Health Depression [...]
--- OUTSIDE RECORDS SUMMARY | 2024-10-25 07:32 | XMS_ITS | Encounter Summary ---
Author Organization [facility] Address [address] [place] [address] [address] [place] [address] Phone Care Team Providers Care Gym Instructor Name Role Phone Nancy Dietz MD Primary Care Provider [phone] Encounter Details Date Type Department Care Team (Late st Contact Info) Description 02/15/2024 Documentation Only [place] [facility], [facility] [address] [place] [place] [address] [address] [place] [phone] ProviderAdonis MD Social History Tobacco Use Types Packs/Day [...] on filedocumented in this encounter Care Teams Gym Instructor Relationship Specialty Start Date End Date Nancy Dietz MD [address] , [address] [place] [address] PCP - General Internal Medicine 02/04/24 documented as of this encounter
--- OUTSIDE RECORDS SUMMARY | 2024-10-25 07:32 | XMS_ITS ---
Author Organization [facility] Address [address] [facility] [address] [facility] [address] [place] [address] Care Team Providers Care Theatre Program Director Name Role Phone Easton Emanuel Unavailable [phone] Encounters Encounter Location Date Provider Diagnosis [facility] [address] [facility] [address] [place] [address] 08/09/2024 Emanuel Mccormack Plan Of Treatment Next Appt Details Provider Name:Emanuel Easton , 10/27/2024 02:15:00 PM, [address] [facility], [address], [place], [address], Progress Notes * Angelica ROMERODOB:1955 ([age] yo F)Acc No.[id number]:08/09/2024 Progress Notes Patient: Angelica GUTIERREZ Provider: Gonzalez WANG MD, Ivania.Matilda.C.P, F.A.S.N. :1955 A ge:68 Y S ex:Female Date:08/09/2024 Address:[address] [place] [address] [facility] Subjective: * Chief Complaints: * * Medical History: Objective: * Vitals: Assessment: Plan: * Treatment: * Billing Information: * Visit Code: * Procedure Codes: * Electronic signature of Ernie Mccormack MD on 10/25/2024 at 07:31 AM CDT Sign off status: Pending * Provider: Gonzalez WANG MD, Ivania.Matilda.C.P, F.A.S.N. Date: 08/09/2024 Generated for Printing/Faxing/eTransmitting on: 10/25/2024 07:31 AM CDT
--- OUTSIDE RECORDS SUMMARY | 2024-10-25 07:32 | XMS_ITS | Patient Health Record ---
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 Coverage End Date Medicare- [place] Medicare [address] [place] [phone] [id number] ANGELICA ROMERO Self - patient is the insured [facility] [address] [place] [address] [id number] ANGELICA ROMERO Self - patient is the insured Medical (General) History Medical History History ICD Code Problems: Recurrent major depression , Major depressive disorder Migraine headaches Surgical History Surgery Date(Month/Year) Any surgical history 04/14/2022 Other 08/20/2013 Appendectomy (90671) 11/10/1984 Removal of gallbladder (27799) 6
--- OUTSIDE RECORDS SUMMARY | 2024-10-25 07:32 | XMS_ITS | Clinical Summary ---
Author Organization [facility] Facility Address [address] [facility] [place] [address] [address] Care Team Providers Care [employer] Name Role Phone Nancy Dietz MD Primary Care Provider [phone] Encounters Date Type Department Care Team Description 10/11/2024 Documentation Only [facility], [address] [place] [address] Adonis Pitts MD 09/06/2024 Documentation Only [facility], [address] [place] [address] Micha Reyes DO 08/09/2024 Documentation Only [facility], [address] [place] [address] ProviderAdonis MD from Last 3 [...] Last Done Comments Breast Cancer Screening 1955 Pneumococcal Vaccine: 50+ Years (1 of 2 - PCV) 1976 Colorectal Cancer Screening: Annual FOBT 2006 Colorectal Cancer Screening: Colonoscopy 2006 Colorectal Cancer Screening: Sigmoidoscopy 2006 Diabetes: Hemoglobin A1C 06/12/2024 11/17/2023 Diabetes: Ophthalmology Exam 06/12/2024 Diabetes: Pedal Pulse Checked 06/12/2024 Diabetes: Sensory Foot Exam 06/12/2024 Diabetes: Visual Foot Exam 06/12/2024 Influenza Vaccine (#1) 2024 4, 05/30/2019, 12/10/2016, Additional history exists Hepatitis B Vaccine Aged Out No longe r eligible based on patient's age to complete this topic Insurance Medicare [employer] Commercial Care Teams [employer] Relationship Specialty Start Date End Date Nancy Dietz MD [address] [place], [place] [id number] PCP - General Internal Medicine 02/04/24
--- OUTSIDE RECORDS SUMMARY | 2024-10-25 07:32 | XMS_ITS | Clinical Summary ---
Author Organization [facility] Address [address] [place] [address] Care Team Providers Care Health Services Coordinator Name Role Phone Marcelino Ahn MD Primary Care Provider [phone] Source Comments [facility],non-owned Affiliates and Associated Physician Practices is amultiple site organization consisting of ambulatory clinics and hospital sitesin [place], [place], [place] and [place]. This disclosure is being madepursuant to the Care Everywhere program and may not contain all information available regarding this patient. Last updated 17.[facility] Allergies No known active allergies Medications * Be aware that medications may not be up to date on this document. Alwaysverify current medications with the patient. 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, sciatica laterality unspecified Take 1 tablet by mouth once daily 30 tablet 2 9 Active Active Problems Problem Noted Date Diagnosed [...] 104.8 kg (231 lb) 03/06/2019 2:46 PM [employer] Height 170.2 cm (5' 7) 03/06/2019 2:46 PM [employer] Body Mass Index 36.18 03/06/2019 2:46 PM [employer] Plan of Treatment Health Maintenance Due Date Last Done Comments BONE DENSITY TESTING 1955 COLOGUARD (AGES 45-75) - COL ON CA SCREENING 1957 COLON MONITORING 1957 COLONOSCOPY - COLON CA SCREENING 1957 CT COLONOGRAPHY - COLON CA SCREENING 1957 Colorectal Cancer Screening 1957 FIT - COLON CA SCREENING 1957 FLEX SIG - COLON CA SCREENING 1957 LIPID TESTING 1957 MAMMOGRAM 1957 MEDICARE AWV 12 MONTHS 1957 HEPATITIS C SCREENING 09/21/1975 DTAP/TDAP/TD VACCINES (1 - Tdap) 1976 PNEUMOCOCCAL VACCINE 50+ (1 of 1 - PCV) 09/26/2007 ZOSTER VACCINE (1 of 2) 09/26/2007 SCREENING FOR DIABETES 12/17/2017 COVID-19 VACCINE (1 - 2023-2 5 season) 2023 DEPRESSION SCREENING 03/29/2024 INFLUENZA VACCINE (#1) 2024 7, 01/31/2014 Respiratory Syncytial Virus (RSV) Vaccine [...] complete this topic MENINGOCOCCAL (Group B) VACCINE SHARED DECISION-MAKING Aged Out No longer eligible based on patient's age to complete this topic MENINGOCOCCAL GROUPS A/C/Y/W VACCINE Aged Out No longer eligible b ased on patient's age to complete this topic Insurance ANTHEM MEDICARE ANTHEM ANTHEM MEDICARE * Guarantor: RAF ROMERO Account Type Relation to Patient Date of Phone Billing Address Personal/Family [address] [place] [address] MEDICARE FORMERLY NAMED [facility] * Guarantor: RAF ROMERO Account Type Relation to Patient Date of Phone Billing Address Personal/Family [address] [place] [place] [address] MEDICARE FORMERLY NAMED [facility] * Guarantor: RAF ROMERO Account Type Relation to Patient Date of Phone Billing Address Personal/Family [address] [place] [address] MEDICARE FORMERLY NAMED [facility] Care Teams Health Services Coordinator Relationship Specialty Start Date End Date Marcelino Ahn MD PCP - General 11/25/17
== END 2024-10-25 07:27 | disposition home or self-care (01) ==
PROVIDERS: PCP Internal Medicine; Visit Provider Nurse Practitioner Family
DX: R11.2 Nausea with vomiting, unspecified (principal)
CPT/HCPCS: 78264; A9541